=== PATIENT | male | born 1960 | race Caucasian/White ===

== ENCOUNTER 2018-02-24 17:48 | Inpatient (IN) | payer MEDICARE, OTHER ==
[2018-02-24] MEDS ORDERED: VANCOMYCIN IV PER PHARMACY 1 EACH MISC MISCELLANE PRN (23:09)
[2018-02-24 23:17] LABS: Glucose,Whole Blood 257 mg/dL (75-99)
[2018-02-25 00:02] LABS: Basophils % (A) 0 %; Eosinophils # (A) 0.1 k/uL (0-0.7); Eosinophils % (A) 1 %; HCT 42.2 % (39.0-53.0); Lymphocytes # (A) 0.5 k/uL (1.0-4.8); Lymphocytes % (A) 4 %; MCH 29.5 pg (25.0-35.0); MCHC 33.3 g/dL (31.0-37.0); MCV 88.8 fL (80.0-100.0); Mean Platelet Volume 6.7; Monocytes # (A) 0.6 k/uL (0-1.0); Monocytes % (A) 5 %; Neutrophils # (A) 10.5 k/uL (1.3-7.7); Neutrophils % (A) 87 %; Platelet Count 174 k/uL (150-450); RBC 4.75 m/uL (4.30-5.90); RDW 14.7 % (11.5-15.5)
[2018-02-25 00:12] LABS: ALT 35 U/L (21-72); AST 38 U/L (17-59); Albumin 2.9 g/dL (3.5-5.0); Alkaline Phosphatase 55 U/L (38-126); Anion Gap 7 mmol/L; Blood Urea Nitrogen 14 mg/dL (9-20); Calcium 8.4 mg/dL (8.4-10.2); Carbon Dioxide 27 mmol/L (22-30); Chloride 97 mmol/L (98-107); Glucose 269 mg/dL (74-99); Magnesium 2.1 mg/dL (1.6-2.3); Sodium 131 mmol/L (137-145); Total Bilirubin 1.6 mg/dL (0.2-1.3); Total Protein 6.5 g/dL (6.3-8.2)
[2018-02-25] MEDS ORDERED: INSULIN DETEMIR 100 UNIT/ML 10 ML VIAL SQ SCH (00:15)
[2018-02-25] MEDS: HYDROcodone/APAP 10-325MG 1 EACH TAB PO PRN ×2 (00:33→09:56)
[2018-02-25] MEDS: HEPARIN SODIUM,PORCINE 5,000 UNIT/ML 1 ML VIAL SQ SCH ×3 (00:35→16:17)
[2018-02-25] MEDS: SODIUM CHLORIDE 0.9% 1,000 ML IV SCH (00:35)
[2018-02-25] MEDS ORDERED: VANCOMYCIN 2,250 MG in SODIUM CHLORIDE 0.9% 500 ML IVPB ONE (01:00)
[2018-02-25] MEDS: INSULIN ASPART 100 UNIT/ML 1 ML 10 ML VIAL SQ SCH ×7 (01:05→22:37)
[2018-02-25] MEDS: PANTOPRAZOLE 40 MG/10 ML VIAL IVP SCH ×2 (01:06→08:40)
[2018-02-25] MEDS: PIPERACILLIN-TAZOBACTAM 3.375 GM in DEXTROSE/WATER 1 50ML.BAG IVPB SCH ×4 (05:51→16:18)
[2018-02-25 06:00] LABS: Glucose,Whole Blood 203 mg/dL (75-99)
[2018-02-25 06:01] LABS: HCT 40.1 % (39.0-53.0); HGB 13.2 gm/dL (13.0-17.5); MCH 29.3 pg (25.0-35.0); MCHC 32.9 g/dL (31.0-37.0); MCV 89.1 fL (80.0-100.0); Mean Platelet Volume 7.3; Platelet Count 189 k/uL (150-450); RBC 4.49 m/uL (4.30-5.90); RDW 14.8 % (11.5-15.5); WBC 11.7 k/uL (3.8-10.6)
[2018-02-25 06:08] LABS: Anion Gap 9 mmol/L; Blood Urea Nitrogen 17 mg/dL (9-20); Calcium 8.3 mg/dL (8.4-10.2); Carbon Dioxide 25 mmol/L (22-30); Chloride 97 mmol/L (98-107); Glucose 221 mg/dL (74-99); Potassium 4.1 mmol/L (3.5-5.1); Sodium 131 mmol/L (137-145)
--- NOTE | 2018-02-25 10:17 | P.CONS ---
History of Present Illness - Reason for Consult Consult date: 02/25/18 Wounds - History of Present Illness This is a 57-year-old male patient well known to ID service because of bilateral lower extremity venous stasis ulcerations and seen in the wound healing center for a long period of time. Patient was discharged in the wound healing Center in October 2015. At that time patient was refusing to use a compressive sleeve. Patient was to follow-up in the office. Patient has had ongoing large wound weeping to the right lower extremity. He states for the last few days he has had fever, chills, rigors. He states his head was cloudy and he couldn't feel his right leg. He fell onto a wooden chair and then got himself up and then fell backwards against the wall slid down the wall and laid on the floor. He tried to call the neighbors and did not get an answer. He was finally able to get himself back up into a chair and knocked on the wall for the other neighbor to come and they called EMS and took him to [facility] initially and he was seen in the emergency center. He was found to have a lactic acid of 3.2, white count of 16.2, BNP 713, creatinine was 1.3, blood sugar 334. He was given Zosyn, Tylenol and Toradol and and then transferred to [facility] as a direct admission. Patient does state that his blood sugars are out of control and running between 200-250 at home. He has no idea on his hemoglobin A1c. He presented with a lactic acid of 1.5, white count of 12, afebrile, elevated heart rate at 115. Albumin was 2.9. Wound culture, urine culture, blood culture are status received. He has been on Zosyn and vancomycin. Patient denies any change in appetite. No nausea, vomiting or diarrhea. He denies any difficulty or pain with urination but states a Rodriguez catheter was placed because he could not stand to urinate. She denies any chest pain. No shortness of breath at rest. According to the patient's nurse. Patient did have diarrhea during the night but none on the day shift. Review of Systems All systems: negative Constitutional: Reports chills, Reports fatigue, Reports fever, Reports lethargy , Reports malaise, Reports weakness, Denies anorexia, Denies poor appetite, Denies weight gain, Denies weight loss Eyes: denies blurred vision, denies pain Ears, nose, mouth and throat: Denies dental pain, Denies headache, Denies mouth pain, Denies sore throat Cardiovascular: Reports leg edema, Denies chest pain, Denies shortness of breath , Denies syncope Respiratory: Denies cough, Denies cough with sputum, Denies dyspnea, Denies excessive sputum, Denies hemoptysis, Denies home oxygen, Denies wheezing Gastrointestinal: Denies abdominal pain, Denies diarrhea, Denies nausea, Denies vomiting Genitourinary: Denies dysuria, Denies urinary retention Musculoskeletal: Reports frequent falls, Reports gait dysfunction, Denies myalgias Integumentary: Reports color changes, Reports darkening of skin, Reports wounds , Denies pruritus, Denies rash Neurological: Denies numbness, Denies weakness Psychiatric: Denies anxiety, Denies depression Endocrine: Denies fatigue, Denies weight change Past Medical History Past Medical History: Asthma, Heart Failure, Diabetes Mellitus, Hyperlipidemia, Hypertension, Myocardial Infarction ([place]), Skin Disorder, Sleep Apnea/CPAP/BIPAP Additional Past Medical History / Comment(s): Bilateral lower extremity venous stasis ulcers, obstructive sleep apnea and doesn't wear CPAP. Last Myocardial Infarction Date:: 2009 History of Any Multi-Drug Resistant Organisms: None Reported Past Surgical History: Heart Catheterization With Stent, Tonsillectomy Additional Past Surgical History / Comment(s): punctured lung Past Anesthesia/Blood Transfusion Reactions: No Reported Reaction Date of Last Stent Placement:: 2009 Past Psychological History: Anxiety Additional Psychological History / Comment(s): welbutrin Smoking Status: Former smoker Past Alcohol Use History: None Reported Additional Past Alcohol Use History / Comment(s): Patient was a smoker of 2 packs per day for 40 years and quit in 2017. He denies any marijuana or street drug use. He states he drinks alcohol socially. He does not use any 8 to ambulate. He states he normally walks with a limp. He lives alone. There are no pets in the home. He denies any service or travel. 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 Past Drug Use History: None Reported - Past Family History Father Family Medical History: Unable to Obtain Mother Family Medical History: Unable to Obtain Brother(s) Family Medical History: Cancer, Deep Vein Thrombosis (DVT) Sister(s) Family Medical History: Cancer Medications and Allergies Home Medications Medication Instructions Recorded Confirmed Type Aspirin 325 mg PO DAILY 04/13/15 02/25/18 History Bumetanide [BUMEX] 2 mg PO BID 04/13/15 02/25/18 History Insulin Glargine [Lantus] 120 unit SQ BID 04/13/15 02/25/18 History Liraglutide [Victoza 2-Fransisco] 1.8 mg SQ DAILY 04/13/15 02/25/18 History Lovastatin [Mevacor] 40 mg PO AC-SUPPER 04/13/15 02/25/18 History Carvedilol [Coreg] 3.125 mg PO DAILY 02/25/18 02/25/18 History Digoxin [Lanoxin] 125 mcg PO DAILY 02/25/18 02/25/18 History Fenofibric Acid (Choline) 135 mg PO DAILY 02/25/18 02/25/18 History [Trilipix] Gabapentin 600 mg PO TID 02/25/18 02/25/18 History Hydrocodone/Acetaminophen [[place] 1 tab PO Q6H 02/25/18 02/25/18 History 10-325] Insulin Glulisine [Apidra] 20 unit SQ AC-TID 02/25/18 02/25/18 History Lisinopril [Zestril] 2.5 mg PO DAILY 02/25/18 02/25/18 History Magnesium Oxide [Mag-Ox] 400 mg PO DAILY 02/25/18 02/25/18 History Metolazone [Zaroxolyn] 10 mg PO TUWETH 02/25/18 02/25/18 History Nitroglycerin Sl Tabs [Nitrostat] 0.4 mg SUBLINGUAL Q5M PRN 02/25/18 02/25/18 History Potassium Chloride [Klor-Con 20] 20 meq PO DAILY 02/25/18 02/25/18 History Spironolactone [Aldactone] 25 mg PO DAILY 02/25/18 02/25/18 History Torsemide [Demadex] 100 mg PO DAILY 02/25/18 02/25/18 History Allergies Allergy/AdvReac Type Severity Reaction Status Date / Time No Known Allergies Allergy Verified 02/24/18 22:30 Physical Exam Vitals: Vital Signs Temp Pulse Resp BP BP Pulse Ox 02/25/18 08:45 98.3 F 104 H 18 126/67 96 02/25/18 04:00 99.0 F 111 H 18 113/57 94 L 02/25/18 02:30 99.5 F 113 H 18 109/55 93 L 02/24/18 21:45 98.3 F 110 H 18 105/59 92 L Intake and Output 02/24/18 02/25/18 02/25/18 22:59 06:59 14:59 Intake Total 118 Output Total 200 Balance -200 118 Intake: Oral 118 Output: Urine 200 Other: Voiding Method Indwelling Catheter Indwelling Catheter # Voids 1 Weight 168.5 kg 167.5 kg Gen: This is a morbidly obese 57-year-old male. He is found sleeping and awakens easily to verbal stimuli. He appears to be in no acute distress. HEENT: Head is atraumatic, normocephalic. Pupils equal, round. Sclerae is anicteric. Conjunctiva pink. Mucous members of the mouth are moist. Patient is edentulous. No thrush noted. NECK: Supple. No JVD. No lymphadenopathy. No thyromegaly. LUNGS: Clear to auscultation. No wheezes or rhonchi. No intercostal retractions. HEART: Regular rate and rhythm. Systolic murmur. ABDOMEN: Soft. Bowel sounds are present. No masses. No tenderness. Mild redness under abdominal folds. Rodriguez catheter draining dark alphonso urine. EXTREMITIES: Right lower extremity has dark chronic color changes to the lower leg. Right lower extremity has a brighter red color changes with serous drainage. There is bleeding between the toes. Acute mycosis bilaterally. Pedal edema 2+. Dorsalis pedis is very weakly palpable on the right and =1 on the left. NEUROLOGICAL: Patient is awake, alert and oriented x3. Severe generalized weakness noted. Results Results: Laboratory Results WBC 11.7 k/uL (3.8-10.6) H 02/25/18 05:14 RBC 4.49 m/uL (4.30-5.90) 02/25/18 05:14 Hgb 13.2 gm/dL (13.0-17.5) 02/25/18 05:14 Hct 40.1 % (39.0-53.0) 02/25/18 05:14 MCV 89.1 fL (80.0-100.0) 02/25/18 05:14 MCH 29.3 pg (25.0-35.0) 02/25/18 05:14 MCHC 32.9 g/dL (31.0-37.0) 02/25/18 05:14 RDW 14.8 % (11.5-15.5) 02/25/18 05:14 Plt Count 189 k/uL (150-450) 02/25/18 05:14 Neutrophils % 87 % 02/24/18 23:47 Lymphocytes % 4 % 02/24/18 23:47 Monocytes % 5 % 02/24/18 23:47 Eosinophils % 1 % 02/24/18 23:47 Basophils % 0 % 02/24/18 23:47 Neutrophils # 10.5 k/uL (1.3-7.7) H 02/24/18 23:47 Lymphocytes # 0.5 k/uL (1.0-4.8) L 02/24/18 23:47 Monocytes # 0.6 k/uL (0-1.0) 02/24/18 23:47 Eosinophils # 0.1 k/uL (0-0.7) 02/24/18 23:47 Basophils # 0.0 k/uL (0-0.2) 02/24/18 23:47 Sodium 131 mmol/L (137-145) L 02/25/18 05:14 Potassium 4.1 mmol/L (3.5-5.1) 02/25/18 05:14 Chloride 97 mmol/L (98-107) L 02/25/18 05:14 Carbon Dioxide 25 mmol/L (22-30) 02/25/18 05:14 Anion Gap 9 mmol/L 02/25/18 05:14 BUN 17 mg/dL (9-20) 02/25/18 05:14 Creatinine 0.70 mg/dL (0.66-1.25) 02/25/18 05:14 Est GFR (CKD-EPI)AfAm >90 (>60 ml/min/1.73 sqM) 02/25/18 05:14 Est GFR (CKD-EPI)NonAf >90 (>60 ml/min/1.73 sqM) 02/25/18 05:14 Glucose 221 mg/dL (74-99) H 02/25/18 05:14 POC Glucose (mg/dL) 203 mg/dL (75-99) H 02/25/18 05:58 POC Glu [employer] Teacher ID Gisell Oates 02/25/18 05:58 Plasma Lactic Acid Osiel 1.5 mmol/L (0.7-2.0) 02/25/18 05:14 Calcium 8.3 mg/dL (8.4-10.2) L 02/25/18 05:14 Magnesium 2.1 mg/dL (1.6-2.3) 02/24/18 23:47 Total Bilirubin 1.6 mg/dL (0.2-1.3) H 02/24/18 23:47 AST 38 U/L (17-59) 02/24/18 23:47 ALT 35 U/L (21-72) 02/24/18 23:47 Alkaline Phosphatase 55 U/L (38-126) 02/24/18 23:47 NT-Pro-B Natriuret Pep 575 pg/mL 02/24/18 23:47 Total Protein 6.5 g/dL (6.3-8.2) 02/24/18 23:47 Albumin 2.9 g/dL (3.5-5.0) L 02/24/18 23:47 CBC & Chem 7: 02/25/18 05:14 02/25/18 05:14 Labs: Abnormal Lab Results - Last 24 Hours (Table) 02/24/18 02/24/18 02/24/18 Range/Units 23:15 23:47 23:47 WBC 12.0 H (3.8-10.6) k/uL Neutrophils # 10.5 H (1.3-7.7) k/uL Lymphocytes # 0.5 L (1.0-4.8) k/uL Sodium 131 L (137-145) mmol/L Chloride 97 L (98-107) mmol/L Glucose 269 H (74-99) mg/dL POC Glucose (mg/dL) 257 H (75-99) mg/dL Calcium (8.4-10.2) mg/dL Total Bilirubin 1.6 H (0.2-1.3) mg/dL Albumin 2.9 L (3.5-5.0) g/dL 02/25/18 02/25/18 02/25/18 Range/Units 05:14 05:14 05:58 WBC 11.7 H (3.8-10.6) k/uL Neutrophils # (1.3-7.7) k/uL Lymphocytes # (1.0-4.8) k/uL Sodium 131 L (137-145) mmol/L Chloride 97 L (98-107) mmol/L Glucose 221 H (74-99) mg/dL POC Glucose (mg/dL) 203 H (75-99) mg/dL Calcium 8.3 L (8.4-10.2) mg/dL Total Bilirubin (0.2-1.3) mg/dL Albumin (3.5-5.0) g/dL Assessment and Plan Plan: This is a 57-year-old male who presented with signs of sepsis most likely secondary to wounds to the right lower extremity with long-standing history of bilateral lower extremity venous stasis ulcerations and metabolic encephalopathy. He is complaining of significant pain to the area. Dr. Mansfield is on consult. He is on antibiotics in the form of Zosyn and vancomycin which will be continued. Local wound care will be addressed. Continue supportive care. Further recommendations as patient progresses. The above dictated assessment and findings were discussed with Dr. Shelton. The impression and plan of care have been directed as dictated. Harper Brantley nurse practitioner acting as scribe for Dr. Shelton.
[2018-02-25] MEDS: VANCOMYCIN 2,250 MG in SODIUM CHLORIDE 0.9% 500 ML IVPB SCH ×2 (10:45→16:17)
[2018-02-25] MEDS: INSULIN DETEMIR 100 UNIT/ML 10 ML VIAL SQ SCH ×2 (10:45→22:38)
[2018-02-25] MEDS ORDERED: HYDROmorphone 1 MG/ML 1 ML SYRINGE IVP STA (11:04)
[2018-02-25 11:10] LABS: Glucose,Whole Blood 133 mg/dL (75-99)
[2018-02-25 11:28] LABS: Glucose,Whole Blood 147 mg/dL (75-99)
[2018-02-25] MEDS ORDERED: NITROGLYCERIN SL TABS 0.4 MG TAB SUBLINGUAL PRN (12:13)
[2018-02-25] MEDS ORDERED: VANCOMYCIN 2,250 MG in SODIUM CHLORIDE 0.9% 500 ML IVPB SCH (13:00)
[2018-02-25] MEDS: HYDROcodone/APAP 10-325MG 1 EACH TAB PO SCH ×2 (13:09→17:32)
[2018-02-25 13:27] VITALS: BMI 56.1
--- NOTE | 2018-02-25 15:20 | P.HPIM ---
History of Present Illness 57-year-old male came in because of generalized weakness and fall. He fell on his right leg normally cannot that he can ablate. Patient is morbidly obese bilateral chronic venous stasis and the patient has significant cellulitis of the right lower limb with this skin breakdown of the entire right leg patient had fevers chills and rigors at home and the patient is found to have elevated temperatures patient will was seen in [facility] after which patient was subsequently transferred here patient was a valid by infectious diseases started him on Zosyn and vancomycin. Wound cultures were obtained. Patient presently denied any fever chills nausea vomiting. Patient has a Rodriguez catheter in place. Although it was documented patient takes digoxin he doesn't really take that medication, patient is on huge doses of torsemide Bumex and metolazone. Patient is hyponatremic because of which I'm cutting down Bumex continue metolazone not be ordering torsemide. Patient is using these medications. For extensive bilateral edema secondary to morbid obesity chronic venous stasis patient does have a big mass in the right thigh area, scheduled to get the mass removed which apparently was a lipoma. Review of Systems REVIEW OF SYSTEMS: CONSTITUTIONAL: As mentioned in HPI HEENT: No recent visual problems or hearing problems. Denied any sore throat. CARDIOVASCULAR: No chest pain, orthopnea, PND, no palpitations, no syncope. PULMONARY: No shortness of breath, no cough, no hemoptysis. GASTROINTESTINAL: No diarrhea, no nausea, no vomiting, no abdominal pain. Normoactive bowel sounds. NEUROLOGICAL: No headaches, no weakness, no numbness. HEMATOLOGICAL: Denies any bleeding or petechiae. GENITOURINARY: Denies any burning micturition, frequency, or urgency. MUSCULOSKELETAL/RHEUMATOLOGICAL: Denies any joint pain, swelling, or any muscle pain. ENDOCRINE: Denies any polyuria or polydipsia. The rest of the 14-point review of systems is negative. Past Medical History Past Medical History: Asthma, Heart Failure, Diabetes Mellitus, Hyperlipidemia, Hypertension, Myocardial Infarction ([place]), Skin Disorder, Sleep Apnea/CPAP/BIPAP Additional Past Medical History / Comment(s): Bilateral lower extremity venous stasis ulcers, obstructive sleep apnea and doesn't wear CPAP. Last Myocardial Infarction Date:: 2009 History of Any Multi-Drug Resistant Organisms: None Reported Past Surgical History: Heart Catheterization With Stent, Tonsillectomy Additional Past Surgical History / Comment(s): punctured lung Past Anesthesia/Blood Transfusion Reactions: No Reported Reaction Date of Last Stent Placement:: 2009 Past Psychological History: Anxiety Additional Psychological History / Comment(s): welbutrin Smoking Status: Former smoker Past Alcohol Use History: None Reported Additional Past Alcohol Use History / Comment(s): Patient was a smoker of 2 packs per day for 40 years and quit in 2017. He denies any marijuana or street drug use. He states he drinks alcohol socially. He does not use any 8 to ambulate. He states he normally walks with a limp. He lives alone. There are no pets in the home. He denies any service or travel. 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 Past Drug Use History: None Reported - Past Family History Father Family Medical History: Unable to Obtain Mother Family Medical History: Unable to Obtain Brother(s) Family Medical History: Cancer, Deep Vein Thrombosis (DVT) Sister(s) Family Medical History: Cancer Medications and Allergies Home Medications Medication Instructions Recorded Confirmed Type Aspirin 325 mg PO DAILY 04/13/15 02/25/18 History Bumetanide [BUMEX] 2 mg PO BID 04/13/15 02/25/18 History Insulin Glargine [Lantus] 120 unit SQ BID 04/13/15 02/25/18 History Liraglutide [Victoza 2-Fransisco] 1.8 mg SQ DAILY 04/13/15 02/25/18 History Lovastatin [Mevacor] 40 mg PO AC-SUPPER 04/13/15 02/25/18 History Carvedilol [Coreg] 3.125 mg PO DAILY 02/25/18 02/25/18 History Digoxin [Lanoxin] 125 mcg PO DAILY 02/25/18 02/25/18 History Fenofibric Acid (Choline) 135 mg PO DAILY 02/25/18 02/25/18 History [Trilipix] Gabapentin 600 mg PO TID 02/25/18 02/25/18 History Hydrocodone/Acetaminophen [[place] 1 tab PO Q6H 02/25/18 02/25/18 History 10-325] Insulin Glulisine [Apidra] 20 unit SQ AC-TID 02/25/18 02/25/18 History Lisinopril [Zestril] 2.5 mg PO DAILY 02/25/18 02/25/18 History Magnesium Oxide [Mag-Ox] 400 mg PO DAILY 02/25/18 02/25/18 History Metolazone [Zaroxolyn] 10 mg PO WETH 02/25/18 02/25/18 History Nitroglycerin Sl Tabs [Nitrostat] 0.4 mg SUBLINGUAL Q5M PRN 02/25/18 02/25/18 History Potassium Chloride [Klor-Con 20] 20 meq PO DAILY 02/25/18 02/25/18 History Spironolactone [Aldactone] 25 mg PO DAILY 02/25/18 02/25/18 History Torsemide [Demadex] 100 mg PO DAILY 02/25/18 02/25/18 History Allergies Allergy/AdvReac Type Severity Reaction Status Date / Time No Known Allergies Allergy Verified 02/24/18 22:30 Physical Exam Vitals: Vital Signs Temp Pulse Resp BP BP Pulse Ox 02/25/18 11:23 98 18 02/25/18 11:19 98.9 F 98 18 124/68 96 02/25/18 08:45 98.3 F 104 H 18 126/67 96 02/25/18 04:00 99.0 F 111 H 18 113/57 94 L 02/25/18 02:30 99.5 F 113 H 18 109/55 93 L 02/24/18 21:45 98.3 F 110 H 18 105/59 92 L Intake and Output 02/25/18 02/25/18 02/25/18 06:59 14:59 22:59 Intake Total 998 Output Total 200 600 Balance -200 398 Intake: IV 40 Invasive Line 1 20 Invasive Line 2 20 Oral 958 Output: Urine 200 600 Other: Voiding Method Indwelling Catheter Indwelling Catheter # Voids 1 Weight 167.5 kg 167.5 kg PHYSICAL EXAMINATION: GENERAL: The patient is alert and oriented x3, not in any acute distress. Morbidly obese HEENT: Pupils are round and equally reacting to light. EOMI. No scleral icterus. No conjunctival pallor. Normocephalic, atraumatic. No pharyngeal erythema. No thyromegaly. CARDIOVASCULAR: S1 and S2 present. No murmurs, rubs, or gallops. PULMONARY: Chest is clear to auscultation, no wheezing or crackles. ABDOMEN: Soft, nontender, nondistended, normoactive bowel sounds. No palpable organomegaly. MUSCULOSKELETAL: No joint swelling or deformity. EXTREMITIES: Bilateral lower extremity swelling right leg is much more swollen with a big lipoma in the thigh area circumferential redness extending up to the knee in the leg with serosanguineous dryness and occasional areas of process and complete skin breakdown NEUROLOGICAL: Gross neurological examination did not reveal any focal deficits. SKIN: No rashes. Results CBC & Chem 7: 02/25/18 05:14 02/25/18 05:14 Labs: Abnormal Lab Results - Last 24 Hours (Table) 02/24/18 02/24/18 02/24/18 Range/Units 23:15 23:47 23:47 WBC 12.0 H (3.8-10.6) k/uL Neutrophils # 10.5 H (1.3-7.7) k/uL Lymphocytes # 0.5 L (1.0-4.8) k/uL Sodium 131 L (137-145) mmol/L Chloride 97 L (98-107) mmol/L Glucose 269 H (74-99) mg/dL POC Glucose (mg/dL) 257 H (75-99) mg/dL Calcium (8.4-10.2) mg/dL Total Bilirubin 1.6 H (0.2-1.3) mg/dL Albumin 2.9 L (3.5-5.0) g/dL 02/25/18 02/25/18 02/25/18 Range/Units 05:14 05:14 05:58 WBC 11.7 H (3.8-10.6) k/uL Neutrophils # (1.3-7.7) k/uL Lymphocytes # (1.0-4.8) k/uL Sodium 131 L (137-145) mmol/L Chloride 97 L (98-107) mmol/L Glucose 221 H (74-99) mg/dL POC Glucose (mg/dL) 203 H (75-99) mg/dL Calcium 8.3 L (8.4-10.2) mg/dL Total Bilirubin (0.2-1.3) mg/dL Albumin (3.5-5.0) g/dL 02/25/18 02/25/18 Range/Units 10:50 11:24 WBC (3.8-10.6) k/uL Neutrophils # (1.3-7.7) k/uL Lymphocytes # (1.0-4.8) k/uL Sodium (137-145) mmol/L Chloride (98-107) mmol/L Glucose (74-99) mg/dL POC Glucose (mg/dL) 133 H 147 H (75-99) mg/dL Calcium (8.4-10.2) mg/dL Total Bilirubin (0.2-1.3) mg/dL Albumin (3.5-5.0) g/dL Microbiology - Last 24 Hours (Table) 02/24/18 23:10 Wound Culture - Preliminary Leg - Right 02/24/18 23:56 Urine Culture - Preliminary Urine,Clean Catch 02/24/18 23:10 Anaerobic Culture - Preliminary Leg - Right Thrombosis Risk Factor Assmnt - Choose All That Apply Each Factor Represents 1 point: Age 41-60 years, Obesity (BMI >25), Swollen legs (current) Thrombosis Risk Factor Assessment Total Risk Factor Score: 3 Thrombosis Risk Factor Assessment Level: Moderate Risk Assessment and Plan Plan: -Sepsis: Secondary to right leg cellulitis infectious disease was consulted patient is on broad-spectrum antibiotics we will use diuretics at a lower dose or pedal edema. -Hyponatremia hypovolemic hyponatremia secondary to excessive diuretic therapy dose of which I'm cutting down repeat basic metabolic profile tomorrow -Type 2 diabetes mellitus -Hyperlipidemia -Sleep apnea and uses CPAP machine at home next Morbid obesity -Coronary artery disease For above-mentioned chronic medical problems patient will be continued on appropriate home medications
[2018-02-25] MEDS: BUMETANIDE 1 MG TAB PO SCH (16:16)
[2018-02-25] MEDS: METOLAZONE 5 MG TAB PO SCH (16:16)
[2018-02-25] MEDS: GABAPENTIN 300 MG CAP PO SCH ×2 (16:17→22:38)
[2018-02-25 16:45] LABS: Glucose,Whole Blood 154 mg/dL (75-99)
[2018-02-25 16:52] LABS: Hemoglobin A1C 9.4 % (4.0-6.0)
[2018-02-25] MEDS ORDERED: POTASSIUM CHLORIDE ER 20 MEQ TAB.ER PO STA (17:09)
[2018-02-25 20:59] LABS: Glucose,Whole Blood 144 mg/dL (75-99)
--- NOTE | 2018-02-25 21:43 | P.CON ---
Consult Note - . Consult date: 02/25/18 Assessment/Plan:: This is a 57-year-old male patient well known to ID service because of bilateral lower extremity venous stasis ulcerations and seen in the wound healing center for a long period of time. Patient was discharged in the wound healing Center in October 2015. At that time patient was refusing to use a compressive sleeve. Patient was to follow-up in the office. Patient has had ongoing large wound weeping to the right lower extremity. He states for the last few days he has had fever, chills, rigors. He states his head was cloudy and he couldn't feel his right leg. He fell onto a wooden chair and then got himself up and then fell backwards against the wall slid down the wall and laid on the floor. He tried to call the neighbors and did not get an answer. He was finally able to get himself back up into a chair and knocked on the wall for the other neighbor to come and they called EMS and took him to [facility] initially and he was seen in the emergency center. He was found to have a lactic acid of 3.2, white count of 16.2, BNP 713, creatinine was 1.3, blood sugar 334. He was given Zosyn, Tylenol and Toradol and and then transferred to [facility] as a direct admission. Patient does state that his blood sugars are out of control and running between 200-250 at home. He has no idea on his hemoglobin A1c. He presented with a lactic acid of 1.5, white count of 12, afebrile, elevated heart rate at 115. Albumin was 2.9. Wound culture, urine culture, blood culture are status received. He has been on Zosyn and vancomycin. Patient denies any change in appetite. No nausea, vomiting or diarrhea. He denies any difficulty or pain with urination but states a Rodriguez catheter was placed because he could not stand to urinate. She denies any chest pain. No shortness of breath at rest. According to the patient's nurse. Patient did have diarrhea during the night but none on the day shift. Please see the consult note as dictated by CLEANER GREASER Claritza Harper [employer]. Patient is feeling poorly is with shortness of breath and feverfamily is the chronic extensive ulceration of the right lower extremity that is present for many many months apparently markedly worsened and became voluminous and its discharge. Eventually fell to the floor and couldn't get up and neighbors called EMS to bring the hospital, he was with evidence of lactic acidosis leukocytosis and sepsis. Because of this. infectious diseases consultation was requested. At this time since [facility] is feeling somewhat better. Lactic acid is improved blood sugars are improving he received resuscitation. He had this time as showing some improvement. Will utilize the absorptive pads to observe the drainage from the right leg. We'll give the wrap the left leg with Silvadene wrap for now. Cultures are process. We'll continue the Zosyn and vancomycin based on prior cultures. oncethe patient is more stable and his head is vascular evaluationwill attempt wrap to the right lower extremity. await cultures to further direct antimicrobial therapy.I agree with the evaluation assessment and plan as dictated by CLEANER GREASER Mrs. Harper Brantley.
[2018-02-26] MEDS: SODIUM CHLORIDE 0.9% 1,000 ML IV SCH (00:20)
[2018-02-26] MEDS: HYDROcodone/APAP 10-325MG 1 EACH TAB PO SCH ×4 (00:21→20:23)
[2018-02-26] MEDS: PIPERACILLIN-TAZOBACTAM 3.375 GM in DEXTROSE/WATER 1 50ML.BAG IVPB SCH ×3 (00:21→12:24)
[2018-02-26] MEDS: HEPARIN SODIUM,PORCINE 5,000 UNIT/ML 1 ML VIAL SQ SCH ×4 (00:21→23:47)
[2018-02-26] MEDS: VANCOMYCIN 2,250 MG in SODIUM CHLORIDE 0.9% 500 ML IVPB SCH ×2 (00:23→11:09)
[2018-02-26 06:17] LABS: Glucose,Whole Blood 109 mg/dL (75-99)
[2018-02-26] MEDS: CARVEDILOL 3.125 MG TAB PO SCH (06:32)
[2018-02-26 07:58] LABS: HCT 37.9 % (39.0-53.0); HGB 12.6 gm/dL (13.0-17.5); MCH 30.3 pg (25.0-35.0); MCHC 33.2 g/dL (31.0-37.0); MCV 91.2 fL (80.0-100.0); Mean Platelet Volume 7.3; Platelet Count 170 k/uL (150-450); RBC 4.16 m/uL (4.30-5.90); RDW 14.9 % (11.5-15.5); WBC 6.8 k/uL (3.8-10.6)
[2018-02-26] MEDS ORDERED: VANCOMYCIN TROUGH DUE 1 EACH MISC MISCELLANE ONE (08:00)
[2018-02-26 08:18] LABS: Anion Gap 7 mmol/L; Blood Urea Nitrogen 13 mg/dL (9-20); Calcium 7.7 mg/dL (8.4-10.2); Carbon Dioxide 26 mmol/L (22-30); Chloride 100 mmol/L (98-107); Glucose 194 mg/dL (74-99); Potassium 3.5 mmol/L (3.5-5.1); Sodium 133 mmol/L (137-145)
[2018-02-26] MEDS: INSULIN ASPART 100 UNIT/ML 1 ML 10 ML VIAL SQ SCH ×7 (10:51→20:29)
[2018-02-26] MEDS: PATIENT'S OWN MED (Liraglutide [Victoza 2-Pak] 1.8 MG) SQ SCH (10:54)
[2018-02-26] MEDS: LISINOPRIL 2.5 MG TAB PO SCH (10:56)
[2018-02-26] MEDS: BUMETANIDE 1 MG TAB PO SCH ×2 (10:56→16:57)
[2018-02-26] MEDS: GABAPENTIN 300 MG CAP PO SCH ×3 (10:56→19:53)
[2018-02-26] MEDS: FENOFIBRATE 160 MG TAB PO SCH (10:56)
[2018-02-26] MEDS: POTASSIUM CHLORIDE ER 20 MEQ TAB.ER PO SCH (10:57)
[2018-02-26] MEDS: PANTOPRAZOLE 40 MG/10 ML VIAL IVP SCH (10:57)
[2018-02-26] MEDS: INSULIN DETEMIR 100 UNIT/ML 10 ML VIAL SQ SCH ×2 (11:08→20:39)
[2018-02-26] MEDS ORDERED: KETOROLAC 30 MG/ML 1 ML VIAL IVP PRN (11:09)
[2018-02-26 11:49] LABS: Glucose,Whole Blood 169 mg/dL (75-99)
--- NOTE | 2018-02-26 12:24 | P.PN ---
Subjective 57-year-old male came in with the sepsis and cellulitis of the right lower extremity with complete skin brought down of the right lower extremity. Patient carries to be on vancomycin and Zosyn wound cultures are showing streptococci. Infectious disease evaluated the patient vascular surgery will evaluate the patient today. Patient is afebrile for about 24 hours. Patient's sodium did improve can you with the same dose of Bumex and metolazone. Constitutional: Denied any fatigue denied any fever. Cardio vascular: denied any chest pain, palpitations Gastrointestinal denied any nausea vomiting Pulmonary: Denied any shortness of breath cough Neurologic denied any new focal deficits Objective - Vital Signs Vital signs: Vital Signs Temp 98.8 F 02/26/18 08:00 Pulse 88 02/26/18 08:00 Resp 20 02/26/18 08:00 BP 113/53 02/26/18 08:00 Pulse Ox 92 L 02/26/18 08:00 Intake & Output 02/25/18 02/26/18 02/26/18 18:59 06:59 18:59 Intake Total 2098 2180 360 Output Total 600 3000 Balance 1498 -820 360 Weight 167.5 kg 170 kg Intake: IV 60 1760 Invasive Line 1 30 30 Invasive Line 2 30 30 Piperacillin-Tazobactam 3 100 .375 gm In Dextrose/Water 1 50ml.bag @ 12.5 mls/hr IVPB Q6HR [facility] Rx#: [id number] Sodium Chloride 0.9% 1, 600 000 ml @ 50 mls/hr IV . Q20H [facility] Rx#:[id number] Vancomycin 2,250 mg In 1000 Sodium Chloride 0.9% 500 ml @ 125 mls/hr IVPB ONCE ONE Rx#:[id number] Oral 2038 420 360 Output: Urine 600 3000 Other: Voiding Method Indwelling Catheter Indwelling Catheter # Voids 1 - Exam PHYSICAL EXAMINATION: GENERAL: The patient is alert and oriented x3, not in any acute distress. Morbidly obese HEENT: Pupils are round and equally reacting to light. EOMI. No scleral icterus. No conjunctival pallor. Normocephalic, atraumatic. No pharyngeal erythema. No thyromegaly. CARDIOVASCULAR: S1 and S2 present. No murmurs, rubs, or gallops. PULMONARY: Chest is clear to auscultation, no wheezing or crackles. ABDOMEN: Soft, nontender, nondistended, normoactive bowel sounds. No palpable organomegaly. MUSCULOSKELETAL: No joint swelling or deformity. EXTREMITIES: Bilateral lower extremity swelling right leg is much more swollen with a big lipoma in the thigh area circumferential redness extending up to the knee in the leg with serosanguineous dryness and occasional areas of process and complete skin breakdown NEUROLOGICAL: Gross neurological examination did not reveal any focal deficits. SKIN: No rashes. - Labs CBC & Chem 7: 02/26/18 07:37 02/26/18 07:37 Labs: Abnormal Lab Results - Last 24 Hours (Table) 02/24/18 02/25/18 02/25/18 Range/Units 23:47 16:44 20:51 RBC (4.30-5.90) m/uL Hgb (13.0-17.5) gm/dL Hct (39.0-53.0) % Sodium (137-145) mmol/L Glucose (74-99) mg/dL POC Glucose (mg/dL) 154 H 144 H (75-99) mg/dL Hemoglobin A1c 9.4 H (4.0-6.0) % Calcium (8.4-10.2) mg/dL 02/26/18 02/26/18 02/26/18 Range/Units 06:15 07:37 07:37 RBC 4.16 L (4.30-5.90) m/uL Hgb 12.6 L (13.0-17.5) gm/dL Hct 37.9 L (39.0-53.0) % Sodium 133 L (137-145) mmol/L Glucose 194 H (74-99) mg/dL POC Glucose (mg/dL) 109 H (75-99) mg/dL Hemoglobin A1c (4.0-6.0) % Calcium 7.7 L (8.4-10.2) mg/dL 02/26/18 Range/Units 11:45 RBC (4.30-5.90) m/uL Hgb (13.0-17.5) gm/dL Hct (39.0-53.0) % Sodium (137-145) mmol/L Glucose (74-99) mg/dL POC Glucose (mg/dL) 169 H (75-99) mg/dL Hemoglobin A1c (4.0-6.0) % Calcium (8.4-10.2) mg/dL Microbiology - Last 24 Hours (Table) 02/24/18 23:56 Urine Culture - Final Urine,Clean Catch 02/24/18 23:10 Gram Stain - Final Leg - Right Wound Culture - Final 02/24/18 23:47 Blood Culture Gram Stain - Preliminary Blood Blood Culture - Preliminary Strep agalactiae - (group b) 02/24/18 23:47 Blood Culture - Final Blood 02/24/18 23:10 Anaerobic Culture - Preliminary Leg - Right Assessment and Plan Plan: -Sepsis: Secondary to right leg cellulitis infectious disease was consulted patient is on broad-spectrum antibiotics we will use diuretics at a lower dose or pedal edema. Patient's wound cultures are positive for streptococci -Hyponatremia hypovolemic hyponatremia secondary to excessive diuretic therapy, improved sodium after cutting down the dose of her diuretic therapy. -Type 2 diabetes mellitus -Hyperlipidemia -Sleep apnea and uses CPAP machine at home next Morbid obesity -Coronary artery disease For above-mentioned chronic medical problems patient will be continued on appropriate home medications
[2018-02-26] MEDS: MAGNESIUM OXIDE 400 MG TAB PO SCH (12:25)
[2018-02-26] MEDS: FAMOTIDINE 20 MG TAB PO SCH ×2 (12:25→19:53)
[2018-02-26] MEDS: cefTRIAXone IN SWFI 2,000 MG/20 ML SYRINGE IVP SCH (14:27)
--- NOTE | 2018-02-26 14:41 | CONS ---
CONSULTATION This is a 57-year-old gentleman who has been seen in [facility] by Dr. Iker Shelton for longstanding history of chronic venous hypertension with venostasis ulcer right lower extremity. Patient came with possibility of sepsis, has been admitted and he has been on IV antibiotic. Patient also has a history of obesity, diabetes, hypertension, coronary artery disease. Patient also has some significant mass on the right upper thigh medial aspect. According to the patient, patient had a CAT scan done and he was seeing a plastic surgeon in [place]. He recommended possible surgery. PHYSICAL EXAMINATION: Patient was seen in his room. His neck is supple. Chest is clear. Abdomen is protuberant. Pulses are deep. Patient has brown discoloration of the both lower extremity. Patient has a large ulcer on the right lower extremity lateral aspect with a lot of serous drainage and the patient was seen by Dr. Shelton, started IV antibiotic and local wound care, Silvadene cream with a compression wrap. At this point, patient needs IV antibiotic and local wound care. Prognosis guarded. We will discuss with Dr. Shelton and according to the patient, he has appointment in [place] by his plastic surgeon. MMODL / IJN: [id number] /
[2018-02-26] MEDS ORDERED: VANCOMYCIN 2,000 MG in SODIUM CHLORIDE 0.9% 500 ML IVPB SCH (17:00)
[2018-02-26 17:02] LABS: Glucose,Whole Blood 79 mg/dL (75-99)
[2018-02-26] MEDS: HYDROcodone/APAP 10-325MG 1 EACH TAB PO PRN (18:54)
[2018-02-26 20:31] LABS: Glucose,Whole Blood 119 mg/dL (75-99)
[2018-02-27] MEDS: HYDROcodone/APAP 10-325MG 1 EACH TAB PO PRN ×4 (02:12→21:24)
[2018-02-27 05:57] LABS: Glucose,Whole Blood 88 mg/dL (75-99)
[2018-02-27] MEDS: INSULIN ASPART 100 UNIT/ML 1 ML 10 ML VIAL SQ SCH ×7 (06:16→21:26)
[2018-02-27] MEDS: PANTOPRAZOLE 40 MG TABLET PO SCH (06:59)
[2018-02-27] MEDS: CARVEDILOL 3.125 MG TAB PO SCH (06:59)
[2018-02-27] MEDS: cefTRIAXone IN SWFI 2,000 MG/20 ML SYRINGE IVP SCH (08:10)
[2018-02-27] MEDS: HEPARIN SODIUM,PORCINE 5,000 UNIT/ML 1 ML VIAL SQ SCH ×2 (08:10→17:19)
[2018-02-27] MEDS: BUMETANIDE 1 MG TAB PO SCH ×2 (08:10→17:19)
[2018-02-27] MEDS: GABAPENTIN 300 MG CAP PO SCH ×3 (08:10→21:24)
[2018-02-27] MEDS: FENOFIBRATE 160 MG TAB PO SCH (08:11)
[2018-02-27] MEDS: POTASSIUM CHLORIDE ER 20 MEQ TAB.ER PO SCH (08:11)
[2018-02-27] MEDS: PATIENT'S OWN MED (Liraglutide [Victoza 2-Pak] 1.8 MG) SQ SCH (08:11)
[2018-02-27] MEDS: LISINOPRIL 2.5 MG TAB PO SCH (08:11)
[2018-02-27] MEDS: FAMOTIDINE 20 MG TAB PO SCH (08:12)
[2018-02-27] MEDS: INSULIN DETEMIR 100 UNIT/ML 10 ML VIAL SQ SCH ×2 (08:28→21:27)
--- NOTE | 2018-02-27 12:17 | P.PN ---
Subjective 57-year-old male came in with the sepsis and cellulitis of the right lower extremity with complete skin brought down of the right lower extremity. Patient carries to be on vancomycin and Zosyn wound cultures are showing streptococci. Infectious disease evaluated the patient vascular surgery will evaluate the patient today. Patient is afebrile for about 24 hours. Patient's sodium did improve can you with the same dose of Bumex and metolazone. 02/27/2018 No overnight events patient was switched to Rocephin as patient has streptococci. Vascular surgery evaluated the patient local wound care patient probably will be discharged to subacute rehabilitation, most probably on Thursday Constitutional: Denied any fatigue denied any fever. Cardio vascular: denied any chest pain, palpitations Gastrointestinal denied any nausea vomiting Pulmonary: Denied any shortness of breath cough Neurologic denied any new focal deficits Objective - Vital Signs Vital signs: Vital Signs Temp 98.4 F 02/27/18 08:00 Pulse 90 02/27/18 08:00 Resp 19 02/27/18 08:00 BP 109/66 02/27/18 08:00 Pulse Ox 93 L 02/27/18 08:00 Intake & Output 02/26/18 02/27/18 02/27/18 18:59 06:59 18:59 Intake Total 1140 40 360 Output Total 1650 1200 1400 Balance -510 -1160 -1040 Weight 170.6 kg Intake: IV 60 40 Invasive Line 1 30 10 Invasive Line 2 30 20 Sodium Chloride 0.9% 1, 10 000 ml @ 50 mls/hr IV . Q20H [facility] Rx#:[id number] Oral 1080 360 Output: Urine 1650 1200 1400 Uretheral (Rodriguez) 1100 1400 Other: Voiding Method Indwelling Catheter Indwelling Catheter Indwelling Catheter # Bowel Movements 1 - Exam PHYSICAL EXAMINATION: GENERAL: The patient is alert and oriented x3, not in any acute distress. Morbidly obese HEENT: Pupils are round and equally reacting to light. EOMI. No scleral icterus. No conjunctival pallor. Normocephalic, atraumatic. No pharyngeal erythema. No thyromegaly. CARDIOVASCULAR: S1 and S2 present. No murmurs, rubs, or gallops. PULMONARY: Chest is clear to auscultation, no wheezing or crackles. ABDOMEN: Soft, nontender, nondistended, normoactive bowel sounds. No palpable organomegaly. MUSCULOSKELETAL: No joint swelling or deformity. EXTREMITIES: Bilateral lower extremity swelling right leg is much more swollen with a big lipoma in the thigh area circumferential redness extending up to the knee in the leg with serosanguineous dryness and occasional areas of process and complete skin breakdown NEUROLOGICAL: Gross neurological examination did not reveal any focal deficits. SKIN: No rashes. - Labs CBC & Chem 7: 02/26/18 07:37 02/26/18 07:37 Labs: Abnormal Lab Results - Last 24 Hours (Table) 02/26/18 Range/Units 20:16 POC Glucose (mg/dL) 119 H (75-99) mg/dL Microbiology - Last 24 Hours (Table) 02/24/18 23:56 Urine Culture - Final Urine,Clean Catch 02/24/18 23:10 Gram Stain - Final Leg - Right Wound Culture - Final Assessment and Plan Plan: -Sepsis: Secondary to right leg cellulitis infectious disease was consulted patient is on broad-spectrum antibiotics we will use diuretics at a lower dose or pedal edema. Patient's wound cultures are positive for streptococci -Hyponatremia hypovolemic hyponatremia secondary to excessive diuretic therapy, improved sodium after cutting down the dose of her diuretic therapy. -Type 2 diabetes mellitus -Hyperlipidemia -Sleep apnea and uses CPAP machine at home next Morbid obesity -Coronary artery disease For above-mentioned chronic medical problems patient will be continued on appropriate home medications
[2018-02-27 12:24] LABS: Glucose,Whole Blood 121 mg/dL (75-99)
[2018-02-27] MEDS: MAGNESIUM OXIDE 400 MG TAB PO SCH (12:26)
[2018-02-27 17:09] LABS: Glucose,Whole Blood 170 mg/dL (75-99)
[2018-02-27 21:05] LABS: Glucose,Whole Blood 151 mg/dL (75-99)
[2018-02-28] MEDS: HEPARIN SODIUM,PORCINE 5,000 UNIT/ML 1 ML VIAL SQ SCH ×4 (01:56→23:12)
[2018-02-28] MEDS: HYDROcodone/APAP 10-325MG 1 EACH TAB PO PRN ×3 (06:20→21:19)
[2018-02-28 07:50] LABS: Glucose,Whole Blood 127 mg/dL (75-99)
[2018-02-28 08:36] LABS: Anion Gap 9 mmol/L; Blood Urea Nitrogen 12 mg/dL (9-20); Calcium 8.4 mg/dL (8.4-10.2); Carbon Dioxide 32 mmol/L (22-30); Chloride 95 mmol/L (98-107); Glucose 116 mg/dL (74-99); Potassium 4.1 mmol/L (3.5-5.1); Sodium 136 mmol/L (137-145)
[2018-02-28] MEDS: INSULIN ASPART 100 UNIT/ML 1 ML 10 ML VIAL SQ SCH ×7 (08:47→21:20)
[2018-02-28] MEDS: POTASSIUM CHLORIDE ER 20 MEQ TAB.ER PO SCH (08:48)
[2018-02-28] MEDS: CARVEDILOL 3.125 MG TAB PO SCH (08:48)
[2018-02-28] MEDS: BUMETANIDE 1 MG TAB PO SCH ×2 (08:48→15:33)
[2018-02-28] MEDS: INSULIN DETEMIR 100 UNIT/ML 10 ML VIAL SQ SCH ×2 (08:48→21:20)
[2018-02-28] MEDS: GABAPENTIN 300 MG CAP PO SCH ×3 (08:48→21:19)
[2018-02-28] MEDS: LISINOPRIL 2.5 MG TAB PO SCH (08:48)
[2018-02-28] MEDS: FENOFIBRATE 160 MG TAB PO SCH (08:49)
[2018-02-28] MEDS: PANTOPRAZOLE 40 MG TABLET PO SCH (08:49)
[2018-02-28] MEDS: PATIENT'S OWN MED (Liraglutide [Victoza 2-Pak] 1.8 MG) SQ SCH (08:50)
[2018-02-28] MEDS: cefTRIAXone IN SWFI 2,000 MG/20 ML SYRINGE IVP SCH ×2 (08:55→17:27)
[2018-02-28] MEDS: SILVER sulfADIAZINE Cream 400 GM 1 APPLIC APPLIC TOPICAL SCH (11:10)
[2018-02-28 11:55] LABS: Glucose,Whole Blood 132 mg/dL (75-99)
--- NOTE | 2018-02-28 12:30 | P.PN ---
Subjective 57-year-old male came in with the sepsis and cellulitis of the right lower extremity with complete skin brought down of the right lower extremity. Patient carries to be on vancomycin and Zosyn wound cultures are showing streptococci. Infectious disease evaluated the patient vascular surgery will evaluate the patient today. Patient is afebrile for about 24 hours. Patient's sodium did improve can you with the same dose of Bumex and metolazone. 02/27/2018 No overnight events patient was switched to Rocephin as patient has streptococci. Vascular surgery evaluated the patient local wound care patient probably will be discharged to subacute rehabilitation, most probably on Thursday02/28/2018 No overnight events sodium did improve to 136 Constitutional: Denied any fatigue denied any fever. Cardio vascular: denied any chest pain, palpitations Gastrointestinal denied any nausea vomiting Pulmonary: Denied any shortness of breath cough Neurologic denied any new focal deficits Objective - Vital Signs Vital signs: Vital Signs Temp 98.0 F 02/28/18 06:06 Pulse 89 02/28/18 06:06 Resp 16 02/28/18 06:06 BP 148/60 02/28/18 06:06 Pulse Ox 94 L 02/28/18 06:06 Intake & Output 02/27/18 02/28/18 02/28/18 18:59 06:59 18:59 Intake Total 360 300 Output Total 1900 200 Balance -1540 -200 300 Weight 170.6 kg Intake: Oral 360 300 Output: Urine 1900 200 Uretheral (Rodriguez) 1400 Other: Voiding Method Indwelling Catheter Indwelling Catheter # Voids 2 - Exam PHYSICAL EXAMINATION: GENERAL: The patient is alert and oriented x3, not in any acute distress. Morbidly obese HEENT: Pupils are round and equally reacting to light. EOMI. No scleral icterus. No conjunctival pallor. Normocephalic, atraumatic. No pharyngeal erythema. No thyromegaly. CARDIOVASCULAR: S1 and S2 present. No murmurs, rubs, or gallops. PULMONARY: Chest is clear to auscultation, no wheezing or crackles. ABDOMEN: Soft, nontender, nondistended, normoactive bowel sounds. No palpable organomegaly. MUSCULOSKELETAL: No joint swelling or deformity. EXTREMITIES: Bilateral lower extremity swelling right leg is much more swollen with a big lipoma in the thigh area circumferential redness extending up to the knee in the leg with serosanguineous dryness and occasional areas of process and complete skin breakdown NEUROLOGICAL: Gross neurological examination did not reveal any focal deficits. SKIN: No rashes. - Labs CBC & Chem 7: 02/26/18 07:37 02/28/18 07:21 Labs: Abnormal Lab Results - Last 24 Hours (Table) 02/27/18 02/27/18 02/28/18 Range/Units 17:05 20:49 07:15 Sodium (137-145) mmol/L Chloride (98-107) mmol/L Carbon Dioxide (22-30) mmol/L Glucose (74-99) mg/dL POC Glucose (mg/dL) 170 H 151 H 127 H (75-99) mg/dL 02/28/18 02/28/18 Range/Units 07:21 11:42 Sodium 136 L (137-145) mmol/L Chloride 95 L (98-107) mmol/L Carbon Dioxide 32 H (22-30) mmol/L Glucose 116 H (74-99) mg/dL POC Glucose (mg/dL) 132 H (75-99) mg/dL Assessment and Plan Plan: -Sepsis: Secondary to right leg cellulitis infectious disease was consulted patient is on broad-spectrum antibiotics we will use diuretics at a lower dose or pedal edema. Patient's wound cultures are positive for streptococci -Hyponatremia hypovolemic hyponatremia secondary to excessive diuretic therapy, improved sodium after cutting down the dose of her diuretic therapy. -Type 2 diabetes mellitus -Hyperlipidemia -Sleep apnea and uses CPAP machine at home next Morbid obesity -Coronary artery disease For above-mentioned chronic medical problems patient will be continued on appropriate home medications Patient probably can be discharged to subacute rehabilitation tomorrow
[2018-02-28] MEDS: MAGNESIUM OXIDE 400 MG TAB PO SCH (13:59)
[2018-02-28 17:24] LABS: Glucose,Whole Blood 150 mg/dL (75-99)
[2018-02-28] MEDS ORDERED: CEPHALEXIN 500 MG CAP PO SCH (18:00)
[2018-02-28 20:36] LABS: Glucose,Whole Blood 143 mg/dL (75-99)
--- NOTE | 2018-03-01 00:40 | PN ---
PROGRESS NOTE DATE OF SERVICE: 02/28/2018. REASON FOR FOLLOWUP: The patient lost his IV access and was refusing placement of any IV, and a question of possible switch to oral antibiotic. INTERVAL HISTORY: The patient is a 57-year-old male who has been admitted to the hospital with bilateral lower extremity cellulitis. The patient did have evidence of a Streptococcus agalactiae bacteremia and is currently on IV Rocephin, being evaluated by Dr. Shelton. I was contacted by the patient's RN as the patient has lost his IV and he is refusing for placement of another IV and wonders if he can be switched to an oral antibiotic. The patient is currently afebrile, has been breathing comfortably. Denies significant chest pain or any cough. Pain to the leg is slightly improved. Still have some drainage. EXAMINATION: Blood pressure 140/75 with a pulse of 91, temperature 97.1. He is 94% on room air. GENERAL DESCRIPTION: A middle aged male up in the chair in no distress. RESPIRATORY SYSTEM: Unlabored breathing. Clear to auscultation anteriorly. HEART: S1, S2. Regular rate and rhythm. ABDOMEN: Legs are currently up. No obvious drainage on the dressing. LABS: BUN of 12, creatinine 0.68. DIAGNOSTIC IMPRESSION AND PLAN: Patient with bilateral lower extremity cellulitis with group B strep bacteremia. The patient is advised to get a peripheral IV as the patient needs to continue with IV Rocephin at this point because of his bacteremia and still significant cellulitis IV. If IV cannot be placed, consultation will be given for placement of a main line. MMODL / IJN: [id number] /
[2018-03-01] MEDS: HYDROcodone/APAP 10-325MG 1 EACH TAB PO PRN ×3 (03:29→21:04)
[2018-03-01 07:26] LABS: Glucose,Whole Blood 147 mg/dL (75-99)
[2018-03-01] MEDS: PATIENT'S OWN MED (Liraglutide [Victoza 2-Pak] 1.8 MG) SQ SCH (07:57)
[2018-03-01] MEDS: cefTRIAXone IN SWFI 2,000 MG/20 ML SYRINGE IVP SCH ×2 (07:57→12:35)
[2018-03-01 08:00] VITALS: RESP 20
[2018-03-01] MEDS: INSULIN ASPART 100 UNIT/ML 1 ML 10 ML VIAL SQ SCH ×7 (08:07→22:09)
[2018-03-01] MEDS: BUMETANIDE 1 MG TAB PO SCH (08:09)
[2018-03-01] MEDS: INSULIN DETEMIR 100 UNIT/ML 10 ML VIAL SQ SCH ×2 (08:09→22:10)
[2018-03-01] MEDS: LISINOPRIL 2.5 MG TAB PO SCH (08:09)
[2018-03-01] MEDS: POTASSIUM CHLORIDE ER 20 MEQ TAB.ER PO SCH ×3 (08:10→21:04)
[2018-03-01] MEDS: HEPARIN SODIUM,PORCINE 5,000 UNIT/ML 1 ML VIAL SQ SCH ×2 (08:10→16:13)
[2018-03-01] MEDS: PANTOPRAZOLE 40 MG TABLET PO SCH ×2 (08:10→08:13)
[2018-03-01] MEDS: CARVEDILOL 3.125 MG TAB PO SCH (08:10)
[2018-03-01] MEDS: FENOFIBRATE 160 MG TAB PO SCH (08:10)
[2018-03-01] MEDS: GABAPENTIN 300 MG CAP PO SCH ×3 (08:10→21:04)
[2018-03-01] MEDS: SILVER sulfADIAZINE Cream 400 GM 1 APPLIC APPLIC TOPICAL SCH (08:11)
[2018-03-01 12:04] LABS: Glucose,Whole Blood 120 mg/dL (75-99)
[2018-03-01] MEDS: MAGNESIUM OXIDE 400 MG TAB PO SCH (12:39)
[2018-03-01] MEDS: FUROSEMIDE 10 MG/ML 4 ML VIAL IV SCH (12:42)
[2018-03-01] MEDS: SPIRONOLACTONE 25 MG TAB PO SCH (12:43)
--- NOTE | 2018-03-01 13:14 | PN ---
PROGRESS NOTE DATE OF SERVICE: 03/01/2018. INTERVAL HISTORY: This 57-year-old gentleman who was admitted with bilateral leg cellulitis and sepsis is being closely monitored. Patient also hypovolemic hyponatremia. The patient is being closely monitored. Infectious Disease following the patient closely. Also, patient is refusing IV. No chest pain. No palpitation. REVIEW OF SYSTEMS: CARDIOVASCULAR: No angina. RESPIRATORY: As mentioned earlier. GI: As mentioned. : No dysuria. NERVOUS SYSTEM: No numbness or weakness. CURRENT MEDICATIONS: 1. Bumex 1 mg b.i.d. 2. Coreg 3.125 mg. 3. Rocephin 2 g daily. 4. Lofibra. 5. Neurontin. 6. Heparin. 7. Levemir. 8. Toradol. 9. Magnesium oxide. 10.Zaroxolyn. 11.Nitrostat. 12.Protonix. 13.K-Dur. EXAM: Alert and oriented x3. Pulse 92, blood pressure 120/54, respirations 20, temperature 98.3, pulse ox 98% on room air. HEENT: Conjunctivae normal. NECK: No jugular venous distention. CARDIOVASCULAR: S1, S2. RESPIRATORY: Breath sounds diminished in the bases. A few rhonchi, no crackles. ABDOMEN: Soft, nontender. LEGS: Bilateral leg swelling and erythema. Discharge and swelling present. NERVOUS SYSTEM: No focal deficits. LABS: WBC 6.2, hemoglobin 12.2, sodium 136. ASSESSMENT: 1. Acute bilateral leg cellulitis, right more than the left with sepsis. 2. Hypovolemic hypernatremia. 3. Diabetes mellitus type 2. 4. Hypertension. 5. Hyperlipidemia. 6. History of sleep apnea, on CPAP. 7. Morbid obesity. 8. History of coronary artery disease. 9. History of asthma. 10.History of congestive heart failure. 11.History of myocardial infarction. 12.History of CPAP. 13.History of coronary artery disease, stent. 14.History of anxiety. RECOMMENDATIONS AND DISCUSSION: This 57-year-old gentleman who presented with multiple complex medical issues, will monitor the patient closely. Continue the current management and symptomatic treatment. Otherwise at this time I recommend to continue current medications. Continue the antibiotics. I would also recommend some diuretics and continue to monitor. Further recommendations to follow. Antibiotics. Prognosis guarded. MMODL / IJN: [id number] / MTDWilman
[2018-03-01 17:25] LABS: Glucose,Whole Blood 119 mg/dL (75-99)
[2018-03-01] MEDS ORDERED: ATORVASTATIN 10 MG TAB PO SCH (17:30)
--- NOTE | 2018-03-01 19:39 | P.PN ---
Subjective Progress Note Date: 03/01/18 This is a 57-year-old male patient well known to ID service because of bilateral lower extremity venous stasis ulcerations and seen in the wound healing center for a long period of time. Patient was discharged in the wound healing Center in October 2015. At that time patient was refusing to use a compressive sleeve. Patient was to follow-up in the office. Patient has had ongoing large wound weeping to the right lower extremity. He states for the last few days he has had fever, chills, rigors. He states his head was cloudy and he couldn't feel his right leg. He fell onto a wooden chair and then got himself up and then fell backwards against the wall slid down the wall and laid on the floor. He tried to call the neighbors and did not get an answer. He was finally able to get himself back up into a chair and knocked on the wall for the other neighbor to come and they called EMS and took him to [facility] initially and he was seen in the emergency center. He was found to have a lactic acid of 3.2, white count of 16.2, BNP 713, creatinine was 1.3, blood sugar 334. He was given Zosyn, Tylenol and Toradol and and then transferred to [facility] as a direct admission. Patient does state that his blood sugars are out of control and running between 200-250 at home. He has no idea on his hemoglobin A1c. He presented with a lactic acid of 1.5, white count of 12, afebrile, elevated heart rate at 115. Albumin was 2.9. Wound culture, urine culture, blood culture are status received. He has been on Zosyn and vancomycin. Patient denies any change in appetite. No nausea, vomiting or diarrhea. He denies any difficulty or pain with urination but states a Rodriguez catheter was placed because he could not stand to urinate. She denies any chest pain. No shortness of breath at rest. According to the patient's nurse. Patient did have diarrhea during the night but none on the day shift. 03/01/2018 the patient is sitting up in a chair sound sleep walking in the room. He does arouse easily and is able to converse without great difficulty. He is concerned that he is not getting enough diuretics. He is on IV Lasix which she relates may not be as good as his oral Bumex. The nursing staff relates that he is on fluid restriction at this time. The patient does get up in maneuver to the bathroom and urinates without difficulties. He is quite surprisingly ambulatory despite his obesity, shortness of breath and lower extremity edema and ulcerations. Since having the left leg wrapped though is doing considerably better. Right lower extremity continues to have drainage nursing is changing it at least twice per day. He is denying fevers or chills but is still short of breath. Objective - Vital Signs Vital signs: Vital Signs Temp 98.3 F 03/01/18 15:00 Pulse 90 03/01/18 15:00 Resp 20 03/01/18 15:00 BP 109/55 03/01/18 15:00 Pulse Ox 94 L 03/01/18 15:00 Intake & Output 03/01/18 03/01/18 03/02/18 06:59 18:59 06:59 Intake Total 2200 Balance 2200 Intake: Oral 2200 Other: Voiding Method Toilet Toilet # Voids 2 1 - Constitutional Constitutional Comment(s): Gen: This is a morbidly obese 57-year-old male. He is found sleeping and awakens easily to verbal stimuli. He appears to be in no acute distress. HEENT: Head is atraumatic, normocephalic. Pupils equal, round. Sclerae is anicteric. Conjunctiva pink. Mucous members of the mouth are moist. Patient is edentulous. No thrush noted. NECK: Supple. No JVD. No lymphadenopathy. No thyromegaly. LUNGS: Clear to auscultation. No wheezes or rhonchi. No intercostal retractions. HEART: Regular rate and rhythm. Systolic murmur. ABDOMEN: Soft. Bowel sounds are present. No masses. No tenderness. Mild redness under abdominal folds. Rodriguez catheter draining dark alphonso urine. EXTREMITIES: Right lower extremity has dark chronic color changes to the lower leg. The left lower extremity his improvement to the edema there is no drainage today. Right lower extremity continues to have a large amount of drainage ulceration is still present the intense erythema is improving it is still somewhat tender. The extensive edema to the right leg has improved somewhat and further improved on the left. Dorsalis pedis is very weakly palpable on the right and =1 on the left. NEUROLOGICAL: Patient is awake, alert and oriented x3. - Labs CBC & Chem 7: 02/26/18 07:37 02/28/18 07:21 Labs: Abnormal Lab Results - Last 24 Hours (Table) 02/28/18 03/01/18 03/01/18 Range/Units 20:25 07:21 11:54 POC Glucose (mg/dL) 143 H 147 H 120 H (75-99) mg/dL 03/01/18 Range/Units 17:23 POC Glucose (mg/dL) 119 H (75-99) mg/dL Microbiology - Last 24 Hours (Table) 02/24/18 23:47 Blood Culture Gram Stain - Final Blood Blood Culture - Final Strep agalactiae - (group b) Coagulase Negative Staph 02/24/18 23:10 Gram Stain - Final Leg - Right Wound Culture - Final Laboratory Results WBC 6.8 k/uL (3.8-10.6) 02/26/18 07:37 RBC 4.16 m/uL (4.30-5.90) L 02/26/18 07:37 Hgb 12.6 gm/dL (13.0-17.5) L 02/26/18 07:37 Hct 37.9 % (39.0-53.0) L 02/26/18 07:37 MCV 91.2 fL (80.0-100.0) 02/26/18 07:37 MCH 30.3 pg (25.0-35.0) 02/26/18 07:37 MCHC 33.2 g/dL (31.0-37.0) 02/26/18 07:37 RDW 14.9 % (11.5-15.5) 02/26/18 07:37 Plt Count 170 k/uL (150-450) 02/26/18 07:37 Neutrophils % 87 % 02/24/18 23:47 Lymphocytes % 4 % 02/24/18 23:47 Monocytes % 5 % 02/24/18 23:47 Eosinophils % 1 % 02/24/18 23:47 Basophils % 0 % 02/24/18 23:47 Neutrophils # 10.5 k/uL (1.3-7.7) H 02/24/18 23:47 Lymphocytes # 0.5 k/uL (1.0-4.8) L 02/24/18 23:47 Monocytes # 0.6 k/uL (0-1.0) 02/24/18 23:47 Eosinophils # 0.1 k/uL (0-0.7) 02/24/18 23:47 Basophils # 0.0 k/uL (0-0.2) 02/24/18 23:47 Sodium 136 mmol/L (137-145) L 02/28/18 07:21 Potassium 4.1 mmol/L (3.5-5.1) 02/28/18 07:21 Chloride 95 mmol/L (98-107) L 02/28/18 07:21 Carbon Dioxide 32 mmol/L (22-30) H 02/28/18 07:21 Anion Gap 9 mmol/L 02/28/18 07:21 BUN 12 mg/dL (9-20) 02/28/18 07:21 Creatinine 0.68 mg/dL (0.66-1.25) 02/28/18 07:21 Est GFR (CKD-EPI)AfAm >90 (>60 ml/min/1.73 sqM) 02/28/18 07:21 Est GFR (CKD-EPI)NonAf >90 (>60 ml/min/1.73 sqM) 02/28/18 07:21 Glucose 116 mg/dL (74-99) H 02/28/18 07:21 POC Glucose (mg/dL) 119 mg/dL (75-99) H 03/01/18 17:23 POC Glu Project Manager/Team Coach ID Tyra Lozano 03/01/18 17:[address] Glu mg/dL 223 02/24/18 23:47 Hemoglobin A1c 9.4 % (4.0-6.0) H 02/24/18 23:47 Plasma Lactic Acid Osiel 1.5 mmol/L (0.7-2.0) 02/25/18 05:14 Calcium 8.4 mg/dL (8.4-10.2) 02/28/18 07:21 Magnesium 2.1 mg/dL (1.6-2.3) 02/24/18 23:47 Total Bilirubin 1.6 mg/dL (0.2-1.3) H 02/24/18 23:47 AST 38 U/L (17-59) 02/24/18 23:47 ALT 35 U/L (21-72) 02/24/18 23:47 Alkaline Phosphatase 55 U/L (38-126) 02/24/18 23:47 NT-Pro-B Natriuret Pep 575 pg/mL 02/24/18 23:47 Total Protein 6.5 g/dL (6.3-8.2) 02/24/18 23:47 Albumin 2.9 g/dL (3.5-5.0) L 02/24/18 23:47 Vancomycin Trough 19.9 ug/mL 02/26/18 07:37 Microbiology 02/24/18 23:47 Blood Blood Culture Gram Stain - Final 02/24/18 23:47 Blood Blood Culture - Final Strep agalactiae - (group b) Coagulase Negative Staph 02/24/18 23:10 Leg - Right Gram Stain - Final 02/24/18 23:10 Leg - Right Wound Culture - Final 02/24/18 23:10 Leg - Right Anaerobic Culture - Final Anaerobic Gm Negative Bacilli 02/24/18 23:56 Urine,Clean Catch Urine Culture - Final 02/24/18 23:47 Blood Blood Culture - Final Assessment and Plan (1) Lymphedema praecox Current Visit: No Status: Acute Code(s): I89.0 - LYMPHEDEMA, NOT ELSEWHERE CLASSIFIED SNOMED Code(s): 72247724 (2) Venous stasis ulcers of both lower extremities Current Visit: No Status: Acute Code(s): I83.019 - VARICOSE VEINS OF RIGHT LOWER EXTREMITY W ULCER OF UNSP SITE SNOMED Code(s): 399103215 (3) Poorly controlled type 2 diabetes mellitus with complication Current Visit: Yes Status: Acute Code(s): E11.8 - TYPE 2 DIABETES MELLITUS WITH UNSPECIFIED COMPLICATIONS; E11.65 - TYPE 2 DIABETES MELLITUS WITH HYPERGLYCEMIA SNOMED Code(s): 68964097 (4) Cellulitis of right lower extremity Narrative/Plan: Patient is feeling poorly is with shortness of breath and feverfamily is the chronic extensive ulceration of the right lower extremity that is present for many many months apparently markedly worsened and became voluminous and its discharge. Eventually fell to the floor and couldn't get up and neighbors called EMS to bring the hospital, he was with evidence of lactic acidosis leukocytosis and sepsis. Because of this. infectious diseases consultation was requested. At this time since entering Hospital is feeling somewhat better. Lactic acid is improved blood sugars are improving he received resuscitation. He had this time as showing some improvement. Will utilize the absorptive pads to observe the drainage from the right leg. We'll give the wrap the left leg with Silvadene wrap for now. Cultures are process. We'll continue the Zosyn and vancomycin based on prior cultures. 03/01/2018 patient has had some improvement. He is no longer febrile and leukocytosis has improved. Blood sugars are improving with the caloric restriction and current protocol. Patient plans on going back home at discharge. We discussed with discharge planning that he will utilize the home care nurse, he does not desire to come to the wound healing Center. He could have limited follow-up in the office and they can go back to the visiting physician for ongoing long-term follow-up. Currently Silvadene is being used with some improvement in conjunction with antibiotic therapy. As noted he had a positive blood culture at admission for group B strep fortunately is susceptible to quinolone therapy. At discharge giving his many difficulties he is not a good candidate for outpatient intravenous antibiotic therapy and fortunately able to be treated with levofloxacin. Continue the Rocephin for now until he is ready for discharge to home. Current goal is to improve his massive edema before his discharge. Current Visit: Yes Status: Acute Code(s): L03.115 - CELLULITIS OF RIGHT LOWER LIMB SNOMED Code(s): 675231838
[2018-03-01 22:09] LABS: Glucose,Whole Blood 113 mg/dL (75-99)
[2018-03-02] MEDS: HEPARIN SODIUM,PORCINE 5,000 UNIT/ML 1 ML VIAL SQ SCH ×2 (02:21→08:24)
[2018-03-02] MEDS: FUROSEMIDE 10 MG/ML 4 ML VIAL IV SCH ×2 (02:21→08:24)
[2018-03-02] MEDS: HYDROcodone/APAP 10-325MG 1 EACH TAB PO PRN ×3 (03:03→14:47)
[2018-03-02 06:22] VITALS: BP 139/84; PULSE 82; TEMP 97.9
[2018-03-02 07:20] LABS: Glucose,Whole Blood 122 mg/dL (75-99)
[2018-03-02] MEDS: INSULIN ASPART 100 UNIT/ML 1 ML 10 ML VIAL SQ SCH ×4 (08:21→13:27)
[2018-03-02] MEDS: GABAPENTIN 300 MG CAP PO SCH (08:22)
[2018-03-02] MEDS: PATIENT'S OWN MED (Liraglutide [Victoza 2-Pak] 1.8 MG) SQ SCH (08:22)
[2018-03-02] MEDS: METOLAZONE 5 MG TAB PO SCH (08:22)
[2018-03-02] MEDS: PANTOPRAZOLE 40 MG TABLET PO SCH (08:23)
[2018-03-02] MEDS: SPIRONOLACTONE 25 MG TAB PO SCH (08:23)
[2018-03-02] MEDS: FENOFIBRATE 160 MG TAB PO SCH (08:23)
[2018-03-02] MEDS: POTASSIUM CHLORIDE ER 20 MEQ TAB.ER PO SCH (08:23)
[2018-03-02] MEDS: cefTRIAXone IN SWFI 2,000 MG/20 ML SYRINGE IVP SCH (08:24)
[2018-03-02] MEDS: SILVER sulfADIAZINE Cream 400 GM 1 APPLIC APPLIC TOPICAL SCH (08:25)
[2018-03-02] MEDS: LISINOPRIL 2.5 MG TAB PO SCH (08:27)
[2018-03-02] MEDS: CARVEDILOL 3.125 MG TAB PO SCH (08:27)
[2018-03-02] MEDS: INSULIN DETEMIR 100 UNIT/ML 10 ML VIAL SQ SCH (08:28)
[2018-03-02] MEDS ORDERED: ASPIRIN 325 MG TAB PO SCH (09:00)
[2018-03-02] MEDS ORDERED: DIGOXIN 125 MCG TAB PO SCH (09:00)
[2018-03-02] MEDS ORDERED: BUMETANIDE 1 MG TAB PO SCH (10:45)
[2018-03-02 11:13] LABS: Anion Gap 6 mmol/L; Blood Urea Nitrogen 10 mg/dL (9-20); Calcium 8.9 mg/dL (8.4-10.2); Carbon Dioxide 32 mmol/L (22-30); Chloride 98 mmol/L (98-107); Glucose 147 mg/dL (74-99); Potassium 4.4 mmol/L (3.5-5.1); Sodium 136 mmol/L (137-145)
[2018-03-02 11:25] LABS: Basophils % (A) 1 %; Eosinophils # (A) 0.2 k/uL (0-0.7); Eosinophils % (A) 4 %; HCT 42.8 % (39.0-53.0); HGB 13.7 gm/dL (13.0-17.5); Lymphocytes # (A) 0.9 k/uL (1.0-4.8); Lymphocytes % (A) 15 %; MCH 28.8 pg (25.0-35.0); MCHC 31.9 g/dL (31.0-37.0); MCV 90.1 fL (80.0-100.0); Mean Platelet Volume 7.2; Monocytes # (A) 0.5 k/uL (0-1.0); Monocytes % (A) 9 %; Neutrophils % (A) 69 %; Platelet Count 290 k/uL (150-450); RBC 4.75 m/uL (4.30-5.90); RDW 14.7 % (11.5-15.5); WBC 5.8 k/uL (3.8-10.6)
[2018-03-02] MEDS: MAGNESIUM OXIDE 400 MG TAB PO SCH (11:36)
[2018-03-02 12:11] LABS: Glucose,Whole Blood 124 mg/dL (75-99)
--- NOTE | 2018-03-02 18:15 | DS ---
DISCHARGE SUMMARY DATE OF SERVICE: 03/02/2018. FINAL DIAGNOSES: 1. Acute bilateral leg cellulitis, right more than the left with sepsis, present on admission. 2. Hypovolemic hyponatremia. 3. Diabetes mellitus type 2. 4. Hypertension. 5. Hyperlipidemia. 6. History of sleep apnea on CPAP. 7. Morbid obesity. 8. History of coronary artery disease, stable. 9. History of asthma. 10.History of congestive heart failure. 11.History of myocardial infarction. 12.History of CPAP. 13.History of CAD, stent. 14.History of anxiety disorder. The patient will be discharged in stable condition with guarded prognosis. TOTAL TIME TAKEN: 35 minutes. HISTORY OF PRESENT ILLNESS: This 57-year-old gentleman admitted with multiple medical problems, also being followed by Dr. Shavonne Morrell in the outpatient setting. Due to the IV antibiotics, patient improved significantly; however, the patient refused IV line and IV antibiotics and patient would like to go home at this time. The patient will be discharged after clearance from Infectious Disease in a stable condition with overall guarded prognosis. EXAM: Vitals are stable. CARDIOVASCULAR: S1, S2 muffled. ABDOMEN: Soft. LEGS: Bilateral leg edema and cellulitis present. DISCHARGE ADVICE AND MEDICATIONS: 1. Diet is cardiac diet. 2. Activity limited until followup. 3. Follow up with Shavonne Morrell in 2-[address] days[address] 4[address] up [address] Shelton as advised. Wound care as recommended by Dr. Shelton. 5. Medications: a. Aspirin 320 mg p.o. daily. b. Bumex 2 mg p.o. b.i.d. c. Coreg 3.125 mg p.o. daily. d. Lanoxin 120 mcg p.o. daily. e. Trilipix 135 mg p.o. daily. f. Gabapentin 600 mg t.i.d. g. Hydrocodone 1 tablet every 6 hours p.r.n. h. Lantus 120 units subcu b.i.d. i. Apidra 10 units subcu t.i.d. j. Victoza 1.8 subcu daily. k. Zestril 2.5 mg daily. l. Mevacor 40 mg at supper. m. Magnesium oxide 400 mg p.o. daily. n. Zaroxolyn 10 mg p.o. Thursday, Thursday, . o. Nitrostat 0.4 mg sublingual p.r.n. p. Klor-Con 20 mg p.o. daily. q. Aldactone 25 mg p.o. r. Demadex 100 mg p.o. daily. s. Silver sulfadiazine for local application. Once again, the patient will be discharged in stable condition with a guarded prognosis. MMODL / IJN: [id number] /
--- NOTE | 2018-03-02 23:41 | P.PN ---
Subjective Progress Note Date: 03/02/18 This is a 57-year-old male patient well known to ID service because of bilateral lower extremity venous stasis ulcerations and seen in the wound healing center for a long period of time. Patient was discharged in the wound healing Center in October 2015. At that time patient was refusing to use a compressive sleeve. Patient was to follow-up in the office. Patient has had ongoing large wound weeping to the right lower extremity. He states for the last few days he has had fever, chills, rigors. He states his head was cloudy and he couldn't feel his right leg. He fell onto a wooden chair and then got himself up and then fell backwards against the wall slid down the wall and laid on the floor. He tried to call the neighbors and did not get an answer. He was finally able to get himself back up into a chair and knocked on the wall for the other neighbor to come and they called EMS and took him to [facility] initially and he was seen in the emergency center. He was found to have a lactic acid of 3.2, white count of 16.2, BNP 713, creatinine was 1.3, blood sugar 334. He was given Zosyn, Tylenol and Toradol and and then transferred to [facility] as a direct admission. Patient does state that his blood sugars are out of control and running between 200-250 at home. He has no idea on his hemoglobin A1c. He presented with a lactic acid of 1.5, white count of 12, afebrile, elevated heart rate at 115. Albumin was 2.9. Wound culture, urine culture, blood culture are status received. He has been on Zosyn and vancomycin. Patient denies any change in appetite. No nausea, vomiting or diarrhea. He denies any difficulty or pain with urination but states a Rodriguez catheter was placed because he could not stand to urinate. She denies any chest pain. No shortness of breath at rest. According to the patient's nurse. Patient did have diarrhea during the night but none on the day shift. 03/01/2018 the patient is sitting up in a chair sound sleep walking in the room. He does arouse easily and is able to converse without great difficulty. He is concerned that he is not getting enough diuretics. He is on IV Lasix which she relates may not be as good as his oral Bumex. The nursing staff relates that he is on fluid restriction at this time. The patient does get up in maneuver to the bathroom and urinates without difficulties. He is quite surprisingly ambulatory despite his obesity, shortness of breath and lower extremity edema and ulcerations. Since having the left leg wrapped though is doing considerably better. Right lower extremity continues to have drainage nursing is changing it at least twice per day. He is denying fevers or chills but is still short of breath. 03/02/2018 patient will not elevate legs and refused further IV therapy. Objective - Vital Signs Vital signs: Vital Signs Temp 97.9 F 03/02/18 06:00 Pulse 82 03/02/18 06:00 Resp 20 03/02/18 06:00 BP 139/84 03/02/18 06:00 Pulse Ox 98 03/02/18 11:37 Intake & Output 03/02/18 03/02/18 03/03/18 06:59 18:59 06:59 Intake Total 800 Output Total 200 Balance 800 -200 Weight 170.6 kg Intake: Oral 800 Output: Urine 200 Other: Voiding Method Toilet Toilet # Voids 1 2 # Bowel Movements 1 - Exam Gen: This is a morbidly obese 57-year-old male. He is found sleeping and awakens easily to verbal stimuli. He appears to be in no acute distress. HEENT: Head is atraumatic, normocephalic. Pupils equal, round. Sclerae is anicteric. Conjunctiva pink. Mucous members of the mouth are moist. Patient is edentulous. No thrush noted. NECK: Supple. No JVD. No lymphadenopathy. No thyromegaly. LUNGS: Clear to auscultation. No wheezes or rhonchi. No intercostal retractions. HEART: Regular rate and rhythm. Systolic murmur. ABDOMEN: Soft. Bowel sounds are present. No masses. No tenderness. Mild redness under abdominal folds. Rodriguez catheter draining dark alphonso urine. EXTREMITIES: Right lower extremity has dark chronic color changes to the lower leg. The left lower extremity his improvement to the edema there is no drainage today. Right lower extremity continues to have a large amount of drainage ulceration is still present the intense erythema is improving it is still somewhat tender. The extensive edema to the right leg has improved somewhat and further improved on the left. Dorsalis pedis is very weakly palpable on the right and =1 on the left. NEUROLOGICAL: Patient is awake, alert and oriented x3. - Labs CBC & Chem 7: 03/02/18 10:33 03/02/18 10:33 Labs: Abnormal Lab Results - Last 24 Hours (Table) 03/02/18 03/02/18 03/02/18 Range/Units 07:18 10:33 10:33 Lymphocytes # 0.9 L (1.0-4.8) k/uL Sodium 136 L (137-145) mmol/L Carbon Dioxide 32 H (22-30) mmol/L Creatinine 0.60 L (0.66-1.25) mg/dL Glucose 147 H (74-99) mg/dL POC Glucose (mg/dL) 122 H (75-99) mg/dL 03/02/18 Range/Units 12:09 Lymphocytes # (1.0-4.8) k/uL Sodium (137-145) mmol/L Carbon Dioxide (22-30) mmol/L Creatinine (0.66-1.25) mg/dL Glucose (74-99) mg/dL POC Glucose (mg/dL) 124 H (75-99) mg/dL Laboratory Results WBC 5.8 k/uL (3.8-10.6) 03/02/18 10:33 RBC 4.75 m/uL (4.30-5.90) 03/02/18 10:33 Hgb 13.7 gm/dL (13.0-17.5) 03/02/18 10:33 Hct 42.8 % (39.0-53.0) 03/02/18 10:33 MCV 90.1 fL (80.0-100.0) 03/02/18 10:33 MCH 28.8 pg (25.0-35.0) 03/02/18 10:33 MCHC 31.9 g/dL (31.0-37.0) 03/02/18 10:33 RDW 14.7 % (11.5-15.5) 03/02/18 10:33 Plt Count 290 k/uL (150-450) 03/02/18 10:33 Neutrophils % 69 % 03/02/18 10:33 Lymphocytes % 15 % 03/02/18 10:33 Monocytes % 9 % 03/02/18 10:33 Eosinophils % 4 % 03/02/18 10:33 Basophils % 1 % 03/02/18 10:33 Neutrophils # 4.0 k/uL (1.3-7.7) 03/02/18 10:33 Lymphocytes # 0.9 k/uL (1.0-4.8) L 03/02/18 10:33 Monocytes # 0.5 k/uL (0-1.0) 03/02/18 10:33 Eosinophils # 0.2 k/uL (0-0.7) 03/02/18 10:33 Basophils # 0.0 k/uL (0-0.2) 03/02/18 10:33 Sodium 136 mmol/L (137-145) L 03/02/18 10:33 Potassium 4.4 mmol/L (3.5-5.1) 03/02/18 10:33 Chloride 98 mmol/L (98-107) 03/02/18 10:33 Carbon Dioxide 32 mmol/L (22-30) H 03/02/18 10:33 Anion Gap 6 mmol/L 03/02/18 10:33 BUN 10 mg/dL (9-20) 03/02/18 10:33 Creatinine 0.60 mg/dL (0.66-1.25) L 03/02/18 10:33 Est GFR (CKD-EPI)AfAm >90 (>60 ml/min/1.73 sqM) 03/02/18 10:33 Est GFR (CKD-EPI)NonAf >90 (>60 ml/min/1.73 sqM) 03/02/18 10:33 Glucose 147 mg/dL (74-99) H 03/02/18 10:33 POC Glucose (mg/dL) 124 mg/dL (75-99) H 03/02/18 12:09 POC Glu Pole Inspector SAGAR Vnadana Scott 03/02/18 12:[address] Glu mg/dL 223 02/24/18 23:47 Hemoglobin A1c 9.4 % (4.0-6.0) H 02/24/18 23:47 Plasma Lactic Acid Osiel 1.5 mmol/L (0.7-2.0) 02/25/18 05:14 Calcium 8.9 mg/dL (8.4-10.2) 03/02/18 10:33 Magnesium 2.1 mg/dL (1.6-2.3) 02/24/18 23:47 Total Bilirubin 1.6 mg/dL (0.2-1.3) H 02/24/18 23:47 AST 38 U/L (17-59) 02/24/18 23:47 ALT 35 U/L (21-72) 02/24/18 23:47 Alkaline Phosphatase 55 U/L (38-126) 02/24/18 23:47 NT-Pro-B Natriuret Pep 575 pg/mL 02/24/18 23:47 Total Protein 6.5 g/dL (6.3-8.2) 02/24/18 23:47 Albumin 2.9 g/dL (3.5-5.0) L 02/24/18 23:47 Vancomycin Trough 19.9 ug/mL 02/26/18 07:37 Microbiology 02/24/18 23:47 Blood Blood Culture Gram Stain - Final 02/24/18 23:47 Blood Blood Culture - Final Strep agalactiae - (group b) Coagulase Negative Staph 02/24/18 23:10 Leg - Right Gram Stain - Final 02/24/18 23:10 Leg - Right Wound Culture - Final 02/24/18 23:10 Leg - Right Anaerobic Culture - Final Anaerobic Gm Negative Bacilli 02/24/18 23:56 Urine,Clean Catch Urine Culture - Final 02/24/18 23:47 Blood Blood Culture - Final Assessment and Plan (1) Lymphedema praecox Status: Acute Code(s): I89.0 - LYMPHEDEMA, NOT ELSEWHERE CLASSIFIED SNOMED Code(s): 80546332 (2) Venous stasis ulcers of both lower extremities Status: Acute Code(s): I83.019 - VARICOSE VEINS OF RIGHT LOWER EXTREMITY W ULCER OF UNSP SITE SNOMED Code(s): 142675587 (3) Poorly controlled type 2 diabetes mellitus with complication Status: Acute Code(s): E11.8 - TYPE 2 DIABETES MELLITUS WITH UNSPECIFIED COMPLICATIONS; E11.65 - TYPE 2 DIABETES MELLITUS WITH HYPERGLYCEMIA SNOMED Code(s): 32994402 (4) Cellulitis of right lower extremity Narrative/Plan: Patient is feeling poorly is with shortness of breath and feverfamily is the chronic extensive ulceration of the right lower extremity that is present for many many months apparently markedly worsened and became voluminous and its discharge. Eventually fell to the floor and couldn't get up and neighbors called EMS to bring the hospital, he was with evidence of lactic acidosis leukocytosis and sepsis. Because of this. infectious diseases consultation was requested. At this time since entering Hospital is feeling somewhat better. Lactic acid is improved blood sugars are improving he received resuscitation. He had this time as showing some improvement. Will utilize the absorptive pads to observe the drainage from the right leg. We'll give the wrap the left leg with Silvadene wrap for now. Cultures are process. We'll continue the Zosyn and vancomycin based on prior cultures. 03/01/2018 patient has had some improvement. He is no longer febrile and leukocytosis has improved. Blood sugars are improving with the caloric restriction and current protocol. Patient plans on going back home at discharge. We discussed with discharge planning that he will utilize the home care nurse, he does not desire to come to the wound healing Center. He could have limited follow-up in the office and they can go back to the visiting physician for ongoing long-term follow-up. Currently Silvadene is being used with some improvement in conjunction with antibiotic therapy. As noted he had a positive blood culture at admission for group B strep fortunately is susceptible to quinolone therapy. At discharge giving his many difficulties he is not a good candidate for outpatient intravenous antibiotic therapy and fortunately able to be treated with levofloxacin. Continue the Rocephin for now until he is ready for discharge to home. Current goal is to improve his massive edema before his discharge. 03/02/2018 patient refused care and is being discharged to home. Given group b strep bactermia needs antibiotic for home, maddi sent to pharmacy. Patient aware of need to finish antibiotics, will see in office for one visit before turning back over to visiting physicians Status: Acute Code(s): L03.115 - CELLULITIS OF RIGHT LOWER LIMB SNOMED Code( s): 845505845
== END 2018-03-02 15:47 | disposition home health service (06) | DRG 871 ==
LOC: 6SEL 21:06 → 4MS4W 02-27 14:14
PROVIDERS: ADMIT Internal Medicine; ATTEND Internal Medicine
DX: A40.1 Sepsis due to streptococcus, group B (principal); G93.41 Metabolic encephalopathy; L03.116 Cellulitis of left lower limb; L03.115 Cellulitis of right lower limb; Z68.43 Body mass index [BMI] 50.0-59.9, adult; E87.1 Hypo-osmolality and hyponatremia; E87.2 Acidosis; L97.919 Non-pressure chronic ulcer of unspecified part of right lower leg with unspecified severity; L97.929 Non-pressure chronic ulcer of unspecified part of left lower leg with unspecified severity; D17.23 Benign lipomatous neoplasm of skin and subcutaneous tissue of right leg; E11.65 Type 2 diabetes mellitus with hyperglycemia; E66.01 Morbid (severe) obesity due to excess calories; E78.5 Hyperlipidemia, unspecified; E86.1 Hypovolemia; F41.9 Anxiety disorder, unspecified; F51.3 Sleepwalking [somnambulism]; G47.33 Obstructive sleep apnea (adult) (pediatric); I11.0 Hypertensive heart disease with heart failure; I25.10 Atherosclerotic heart disease of native coronary artery without angina pectoris; I25.2 Old myocardial infarction; I50.9 Heart failure, unspecified; I87.309 Chronic venous hypertension (idiopathic) without complications of unspecified lower extremity; I87.8 Other specified disorders of veins; I89.0 Lymphedema, not elsewhere classified; J45.909 Unspecified asthma, uncomplicated; W07.XXXA Fall from chair, initial encounter; Z79.4 Long term (current) use of insulin; Z79.82 Long term (current) use of aspirin; Z79.899 Other long term (current) drug therapy; Z87.891 Personal history of nicotine dependence; Z95.5 Presence of coronary angioplasty implant and graft; E11.9 Type 2 diabetes mellitus without complications; R19.7 Diarrhea, unspecified; T50.1X5A Adverse effect of loop [high-ceiling] diuretics, initial encounter; T50.2X5A Adverse effect of carbonic-anhydrase inhibitors, benzothiadiazides and other diuretics, initial encounter; Z80.9 Family history of malignant neoplasm, unspecified; Z83.2 Family history of diseases of the blood and blood-forming organs and certain disorders involving the immune mechanism
CPT/HCPCS: 80048; 80053; 80202; 83036; 83605; 83735; 83880; 85025; 85027; 87040; 87070; 87075; 87077; 87086; 87186; 87205; 94760

== ENCOUNTER 2019-03-07 14:09 | Inpatient (IN) | payer MEDICARE, OTHER ==
[2019-03-07] MEDS ORDERED: PIPERACILLIN-TAZOBACTAM 3.375 GM in SODIUM CHLORIDE 0.9% 100 ML IVPB STA (15:53)
[2019-03-07] MEDS ORDERED: VANCOMYCIN IV PER PHARMACY 1 EACH MISC MISCELLANE PRN (15:53)
[2019-03-07] MEDS ORDERED: VANCOMYCIN 2,250 MG in SODIUM CHLORIDE 0.9% 500 ML 500 ML IVPB STA (15:59)
--- NOTE | 2019-03-07 16:06 | ED ---
General Adult HPI - General Chief complaint: Extremity Problem,Nontraumatic Stated complaint: infection in leg Time Seen by Provider: 03/07/19 15:03 Source: patient, RN notes reviewed Mode of arrival: wheelchair Limitations: no limitations - History of Present Illness Initial comments: Patient is a pleasant 58-year-old male presenting to the emergency department with concern for right leg wound. Patient states this is a chronic wound however has gotten worse recently. Patient has noticed some increased swelling and older and drainage. Patient states it is weeping. Patient states the visiting nurse did come out and recommended come to the hospital. Patient denies fevers. - Related Data Home Medications Medication Instructions Recorded Confirmed Aspirin 325 mg PO DAILY 04/13/15 11/11/18 Bumetanide [BUMEX] 4 mg PO BID 04/13/15 11/11/18 Insulin Glargine [Lantus] 100 unit SQ Q12HR 04/13/15 11/11/18 Hydrocodone/Acetaminophen [[place] 1 tab PO Q6H 02/25/18 11/11/18 10-325] Insulin Glulisine [Apidra] 20 unit SQ AC-TID 02/25/18 11/11/18 Nitroglycerin Sl Tabs [Nitrostat] 0.4 mg SUBLINGUAL Q5M PRN 02/25/18 11/11/18 Potassium Chloride [Klor-Con 20] 20 meq PO BID 02/25/18 11/11/18 Dulaglutide [Trulicity] 1.5 mg SQ MO 11/11/18 11/11/18 Metolazone [Zaroxolyn] 10 mg PO TUWETH 11/11/18 11/11/18 Pregabalin [Lyrica] 150 mg PO BID 11/11/18 11/11/18 Spironolactone [Aldactone] 50 mg PO DAILY 11/11/18 11/11/18 metFORMIN HCL [Glucophage] 1,000 mg PO HS 11/11/18 11/11/18 Allergies Allergy/AdvReac Type Severity Reaction Status Date / Time adhesive tape Allergy Rash/Hives Verified 03/07/19 14:16 Review of Systems ROS Statement: Those systems with pertinent positive or pertinent negative responses have been documented in the HPI. ROS Other: All systems not noted in ROS Statement are negative. Constitutional: Denies: fever Eyes: Denies: eye pain ENT: Denies: ear pain Respiratory: Denies: cough Cardiovascular: Denies: chest pain Endocrine: Denies: fatigue Gastrointestinal: Denies: abdominal pain Genitourinary: Denies: dysuria Musculoskeletal: Denies: back pain Skin: Reports: rash Neurological: Denies: weakness Past Medical History Past Medical History: Asthma, Coronary Artery Disease (CAD), Heart Failure, COPD, Diabetes Mellitus, Myocardial Infarction ([place]), Prostate Disorder, Skin Disorder, Sleep Apnea/CPAP/BIPAP Additional Past Medical History / Comment(s): Bilateral lower extremity ulcers, edema left lower legs, edema and "tumor" rt leg, diff with ambulation, Last Myocardial Infarction Date:: 1999 History of Any Multi-Drug Resistant Organisms: None Reported Past Surgical History: Heart Catheterization With Stent, Tonsillectomy Additional Past Surgical History / Comment(s): chest tube in for collapsed lung, one cardiac stent, Past Anesthesia/Blood Transfusion Reactions: No Reported Reaction Date of Last Stent Placement:: 1999 Past Psychological History: Anxiety Smoking Status: Former smoker Past Alcohol Use History: None Reported Past Drug Use History: None Reported - Past Family History Father Family Medical History: Unable to Obtain Mother Family Medical History: Unable to Obtain Sister(s) Family Medical History: Cancer General Exam Limitations: no limitations General appearance: alert, obese Head exam: Present: atraumatic Eye exam: Present: normal appearance, PERRL ENT exam: Present: normal oropharynx Neck exam: Present: normal inspection Respiratory exam: Present: normal lung sounds bilaterally Cardiovascular Exam: Present: regular rate, normal rhythm GI/Abdominal exam: Present: soft. Absent: tenderness Extremities exam: Present: pedal edema, other (Bilateral edema. Right sided leg cellulitis with several ulcer. Right lateral foot with straight 3 ulcer and clear drainage with significant odor.) Neurological exam: Present: alert Psychiatric exam: Present: normal affect, normal mood Skin exam: Present: other (Cellulitis and skin ulcers) Course Vital Signs 03/07/19 14:12 Temperature 99.2 F Pulse Rate 123 H Respiratory 20 Rate Blood Pressure 115/64 O2 Sat by Pulse 94 L Oximetry - Reevaluation(s) Reevaluation #1: 03/07/19 16:[address] Patel, who will admit. EKG Findings - EKG Comments: EKG Findings:: Sinus tachycardia 110. HI 1 and 2. QRS 94. QT 344. QTC 465. Left axis. Left anterior fascicular block. No acute ST change. Critical Care Time Critical Care Time: Yes Total Critical Care Time: 33 Disposition Clinical Impression: Sepsis, Cellulitis, Foot ulcer Disposition: ADMITTED IP TO THIS HOSP Is patient prescribed a controlled substance at d/c from ED?: No Referrals: Sukumar Kaur MD [Primary Care Provider] - 1-2 days Decision Time: 16:22
[2019-03-07] MEDS ORDERED: NALOXONE 0.4 MG/ML 1 ML VIAL IV PRN (16:22)
--- NOTE | 2019-03-07 17:45 | XR ---
EXAMINATION TYPE: XR foot limited RT DATE OF EXAM: 03/07/2019 COMPARISON: NONE HISTORY: Foot swelling TECHNIQUE: 2 views FINDINGS: There is soft tissue swelling of the forefoot. Exam is limited by the bandages. I see no fo karina bone destruction. There is possible soft tissue ulceration at the base of the mid foot. There is moderate osteoarthritis at the first MP joint. There is plantar calcaneal spurring. IMPRESSION: Soft tissue swelling and deformity. No fracture. No definite sign of osteomyelitis.
[2019-03-07 17:58] LABS: Basophils # (A) 0.1 k/uL (0-0.2); Basophils % (A) 0 %; Eosinophils # (A) 0.5 k/uL (0-0.7); Eosinophils % (A) 3 %; HCT 37.6 % (39.0-53.0); HGB 12.9 gm/dL (13.0-17.5); Lymphocytes # (A) 1.2 k/uL (1.0-4.8); Lymphocytes % (A) 6 %; MCH 30.8 pg (25.0-35.0); MCHC 34.3 g/dL (31.0-37.0); MCV 89.7 fL (80.0-100.0); Mean Platelet Volume 6.6; Monocytes # (A) 1.3 k/uL (0-1.0); Monocytes % (A) 6 %; Neutrophils # (A) 16.7 k/uL (1.3-7.7); Neutrophils % (A) 83 %; Platelet Count 381 k/uL (150-450); Poikilocytosis Slight; RBC 4.19 m/uL (4.30-5.90); RDW 14.9 % (11.5-15.5); WBC 20.1 k/uL (3.8-10.6)
[2019-03-07 18:11] LABS: Partial Thromboplastin Time 28.3 sec (22.0-30.0)
[2019-03-07] MEDS ORDERED: HYDROcodone/APAP 5-325MG 1 EACH TAB PO STA (18:13)
[2019-03-07] MEDS ORDERED: PREGABALIN 75 MG CAP PO STA (18:13)
[2019-03-07] MEDS ORDERED: ACETAMINOPHEN TAB 325 MG TAB PO PRN (18:14)
[2019-03-07 18:15] LABS: ALT 14 U/L (21-72); AST 24 U/L (17-59); African American GFR (CKD) >90 (>60 ml/min/1.73 sqM); Alkaline Phosphatase 76 U/L (38-126); Anion Gap 8 mmol/L; Blood Urea Nitrogen 14 mg/dL (9-20); Calcium 8.5 mg/dL (8.4-10.2); Carbon Dioxide 35 mmol/L (22-30); Chloride 91 mmol/L (98-107); Glucose 178 mg/dL (74-99); Potassium 3.7 mmol/L (3.5-5.1); Sodium 134 mmol/L (137-145); Total Bilirubin 1.8 mg/dL (0.2-1.3); Total Protein 7.5 g/dL (6.3-8.2)
[2019-03-07] MEDS: SODIUM CHLORIDE 0.9% 1,000 ML IV SCH (18:20)
[2019-03-07] MEDS ORDERED: IPRATROPIUM-ALBUTEROL 3 ML NEB INHALATION PRN (18:21)
--- NOTE | 2019-03-07 18:25 | P.HPIM ---
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 Patient reports his lower extremity wounds that of continuously gotten worse over the last couple of months. Patient states that he is wheelchair-bound but is able to walk short distances with a walker. He has a nurse that comes over for wound care. His PCP is visiting physicians Dr. Kaur. Patient reports 8-9 out of 10 in severity right lower extremity pain along with chronic lower extremity swelling. Patient denies any headache, nausea or vomiting, fever or chills, cough, chest pain, shortness of breath, changes in urination or bowel habits. No changes in appetite or weight. No dizziness, numbness/weakness/tingling of the extremities. In the ED, patient had a pulse of 123. CBC showed a leukocytosis of 20.1 and normocytic anemia with hemoglobin of 12.9. CMP showed a sodium of 134, chloride of 91, bicarbonate of 35, glucose of 178. Lactic acid was negative. Total theron irubin was 1.8. Patient is admitted for infected wound in his right lower extremity and sepsis, infectious diseases consulted. Review of Systems Pertinent positives and negatives as discussed in HPI, a complete review of systems was performed and all other systems are negative. Past Medical History Past Medical History: Asthma, Coronary Artery Disease (CAD), Heart Failure, COPD, Diabetes Mellitus, Myocardial Infarction ([place]), Prostate Disorder, Skin Disorder, Sleep Apnea/CPAP/BIPAP Additional Past Medical History / Comment(s): Bilateral lower extremity ulcers, edema left lower legs, edema and "tumor" rt leg, diff with ambulation, Last Myocardial Infarction Date:: 1999 History of Any Multi-Drug Resistant Organisms: None Reported Past Surgical History: Heart Catheterization With Stent, Tonsillectomy Additional Past Surgical History / Comment(s): chest tube in for collapsed lung, one cardiac stent, Past Anesthesia/Blood Transfusion Reactions: No Reported Reaction Date of Last Stent Placement:: 1999 Past Psychological History: Anxiety Smoking Status: Former smoker Past Alcohol Use History: None Reported Past Drug Use History: None Reported - Past Family History Father Family Medical History: Unable to Obtain Mother Family Medical History: Unable to Obtain Sister(s) Family Medical History: Cancer Medications and Allergies Home Medications Medication Instructions Recorded Confirmed Type Dulaglutide [Trulicity] 1.5 mg SQ MO 11/11/18 03/07/19 History Ergocalciferol (Vitamin D2) 50,000 unit PO TUTH 03/07/19 03/07/19 History [Drisdol] Insulin Aspart [NovoLOG Flexpen] 20 units SQ TID 03/07/19 03/07/19 History SILVER sulfADIAZINE CREAM 1 applic TOPICAL DAILY 03/07/19 03/07/19 History [Silvadene Cream] hydrOXYzine HCL [Atarax] 50 - 100 mg PO Q6H PRN 03/07/19 03/07/19 History traMADol HCL [Ultram] 50 mg PO QID 03/07/19 03/07/19 History Allergies Allergy/AdvReac Type Severity Reaction Status Date / Time adhesive tape Allergy Rash/Hives Verified 03/07/19 16:58 Physical Exam Vitals: Vital Signs Temp Pulse Resp BP Pulse Ox 03/07/19 14:12 99.2 F 123 H 20 115/64 94 L Intake and Output 03/07/19 03/07/19 03/07/19 06:59 14:59 22:59 Other: Weight 149.685 kg General: [non toxic], [morbidly obese, no distress, eating sandwich], [appears at stated age] Derm: [warm], [dry] Head: [atraumatic], [normocephalic], [symmetric] Eyes: [EOMI], [no lid lag], [anicteric sclera] Mouth: [no lip lesion], [mucus membranes moist] Cardiovascular: [S1S2 reg], [tachycardia] Lungs: [CTA bilateral], [no rhonchi, no rales] , [no accessory muscle use] Abdominal: [soft], [ nontender to palpation], [obese], [no appreciable organomegaly] Ext: [no gross muscle atrophy], [2+ right greater than left lower extremity edema], [no contractures], [possible lipoma of the right thigh], [chronic venous stasis changes with erythema in the right lower extremity which is foul- smelling] Neuro: [ CN II-XI grossly intact], [no focal neuro deficits] Psych: [Alert], [oriented], [appropriate affect] Results CBC & Chem 7: 03/07/19 17:40 03/07/19 17:40 Labs: Abnormal Lab Results - Last 24 Hours (Table) 03/07/19 03/07/19 Range/Units 17:40 17:40 WBC 20.1 H (3.8-10.6) k/uL RBC 4.19 L (4.30-5.90) m/uL Hgb 12.9 L (13.0-17.5) gm/dL Hct 37.6 L (39.0-53.0) % Neutrophils # 16.7 H (1.3-7.7) k/uL Monocytes # 1.3 H (0-1.0) k/uL Sodium 134 L (137-145) mmol/L Chloride 91 L (98-107) mmol/L Carbon Dioxide 35 H (22-30) mmol/L Glucose 178 H (74-99) mg/dL Total Bilirubin 1.8 H (0.2-1.3) mg/dL ALT 14 L (21-72) U/L Albumin 3.0 L (3.5-5.0) g/dL Assessment and Plan Assessment: Assessment and Plan Sepsis likely related to right lower extremity cellulitis Diabetes mellitus with hyperglycemia Morbid obesity COPD Patient meets sepsis criteria. Pulse 123. Leukocytosis of 20.1. Positive source of infection. Lactic acid negative. Plans: Start vancomycin and Zosyn for broad-spectrum coverage. Tylenol as needed for fever. ID consultation. Pain control with [place], Dilaudid as needed. Telemetry monitoring. Follow ID consultation. Wound cultures. Blood cultures. [id number] glucose 178. Plans: NovoLog 20 units with meals. Insulin sliding scale. Regular Accu-Cheks. Hypoglycemic precautions. BMI 47.3. Plans: Structured weight loss program. Stable. Plans: DuoNeb as needed for shortness of breath and wheezing. [Patient is admitted for right lower extremity cellulitis and sepsis, started on broad-spectrum IV antibiotics with ID on consult.] DVT prophylaxis: [Heparin] Discussed with: [Patient] Anticipated discharge: [2-3 days] Anticipated discharge place: [[place]] A total of [45] minutes was spent on the care of this complex patient more than 50% of the time was spent in counseling and care coordination.
[2019-03-07 22:16] LABS: Glucose,Whole Blood 130 mg/dL (75-99)
[2019-03-07] MEDS: INSULIN ASPART (NovoLOG) 100 UNIT/ML VIAL SQ SCH (22:36)
[2019-03-07] MEDS: HEPARIN SODIUM,PORCINE 5,000 UNIT/ML 1 ML VIAL SQ SCH (22:40)
[2019-03-08] MEDS: PIPERACILLIN-TAZOBACTAM 3.375 GM in SODIUM CHLORIDE 0.9% 100 ML IVPB SCH ×3 (04:21→19:31)
[2019-03-08] MEDS: HYDROmorphone 1 MG/ML 1 ML SYRINGE IV PRN ×5 (04:21→22:16)
[2019-03-08] MEDS: SODIUM CHLORIDE 0.9% 1,000 ML IV SCH ×2 (06:01→21:02)
[2019-03-08 07:28] LABS: Glucose,Whole Blood 145 mg/dL (75-99)
[2019-03-08] MEDS: INSULIN ASPART (NovoLOG) 100 UNIT/ML VIAL SQ SCH ×7 (07:37→21:03)
[2019-03-08] MEDS: VANCOMYCIN 2,250 MG in SODIUM CHLORIDE 0.9% 500 ML 500 ML IVPB SCH ×2 (08:37→23:35)
[2019-03-08] MEDS: HEPARIN SODIUM,PORCINE 5,000 UNIT/ML 1 ML VIAL SQ SCH (08:53)
[2019-03-08 09:08] LABS: Basophils % (A) 0 %; Eosinophils # (A) 0.3 k/uL (0-0.7); Eosinophils % (A) 2 %; HCT 26.3 % (39.0-53.0); Lymphocytes % (A) 6 %; MCHC 31.4 g/dL (31.0-37.0); MCV 89.2 fL (80.0-100.0); Mean Platelet Volume 7.7; Monocytes # (A) 1.4 k/uL (0-1.0); Monocytes % (A) 8 %; Neutrophils # (A) 13.3 k/uL (1.3-7.7); Neutrophils % (A) 82 %; Platelet Count 438 k/uL (150-450); Poikilocytosis Slight; RBC 2.95 m/uL (4.30-5.90); RDW 14.8 % (11.5-15.5); WBC 16.1 k/uL (3.8-10.6)
[2019-03-08 09:16] LABS: Polychromasia Present
[2019-03-08 09:25] LABS: ALT 15 U/L (21-72); AST 27 U/L (17-59); African American GFR (CKD) >90 (>60 ml/min/1.73 sqM); Albumin 2.7 g/dL (3.5-5.0); Alkaline Phosphatase 75 U/L (38-126); Anion Gap 9 mmol/L; Blood Urea Nitrogen 14 mg/dL (9-20); Calcium 8.3 mg/dL (8.4-10.2); Carbon Dioxide 34 mmol/L (22-30); Chloride 96 mmol/L (98-107); Glucose 135 mg/dL (74-99); Potassium 3.1 mmol/L (3.5-5.1); Sodium 139 mmol/L (137-145); Total Bilirubin 1.4 mg/dL (0.2-1.3); Total Protein 6.7 g/dL (6.3-8.2)
[2019-03-08] MEDS ORDERED: POTASSIUM CHLORIDE 20 MEQ in WATER FOR INJECTION 1 100ML.BAG IVPB STA (11:47)
[2019-03-08 11:51] LABS: Glucose,Whole Blood 110 mg/dL (75-99)
--- NOTE | 2019-03-08 12:22 | P.CONS ---
History of Present Illness - Reason for Consult Consult date: 03/08/19 Leg wound, cellulitis, sepsis - History of Present Illness This is a 58-year-old male patient well known to ID service because of bilateral lower extremity venous stasis ulcerations and [facility] a [facility] period of time. Patient is currently under the care of Dr. Mansfield and sees him every 2 weeks however patient states he missed his last appointment due to transportation issues. He presented to [facility] emergency center due to concern of worsening pain to the right leg with increased swelling and drainage. He is followed at home by home care nurse also recommended that he come into the hospital for evaluation. Patient denies having any fevers. He states his appetite is okay. Regarding his blood sugars he states they usually run 120-150 but has no idea what his hemoglobin A1c is. He presented with a blood sugar of 178, albumin 3.0, white count 20.1, creatinine 0.92. He was afebrile. Wound culture and blood culture were obtained. Foot x-ray showed soft tissue swelling and deformity was no fracture. No definitive osteomyelitis. He was started on Zosyn and vancomycin and admitted to the [facility] floor. Hemoglobin A1c obtained on February 24 was 9.4. Review of Systems Constitutional: Reports fatigue, Reports weakness, Denies anorexia, Denies chills, Denies fever, Denies poor appetite, Denies weight loss Ears, nose, mouth and throat: Denies dental pain, Denies mouth pain, Denies nasal congestion, Denies nasal discharge, Denies vertigo Cardiovascular: Reports edema, Reports leg edema, Denies chest pain, Denies shortness of breath, Denies syncope Respiratory: Denies congestion, Denies cough, Denies cough with sputum, Denies dyspnea, Denies excessive sputum, Denies hemoptysis, Denies home oxygen, Denies wheezing Gastrointestinal: Denies abdominal pain, Denies loss of appetite, Denies nausea, Denies vomiting Genitourinary: Denies dysuria Musculoskeletal: Reports gait dysfunction, Reports muscle weakness Integumentary: Reports color changes, Reports wounds, Denies pruritus, Denies rash Neurological: Denies aphasia, Denies ataxia, Denies change in speech, Denies confusion, Denies seizures, Denies syncope Psychiatric: Denies anxiety, Denies depression Endocrine: Denies fatigue, Denies weight change Past Medical History Past Medical History: Asthma, Coronary Artery Disease (CAD), Heart Failure, 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, Diabetes Mellitus, Myocardial Infarction ([place]), Prostate Disorder, Skin Disorder, Sleep Apnea/CPAP/BIPAP Additional Past Medical History / Comment(s): Bilateral lower extremity ulcers, edema left lower legs, edema and "tumor" rt leg, diff with ambulation, Last Myocardial Infarction Date:: 1999 History of Any Multi-Drug Resistant Organisms: None Reported Past Surgical History: Heart Catheterization With Stent, Tonsillectomy Additional Past Surgical History / Comment(s): chest tube in for collapsed lung, one cardiac stent, Past Anesthesia/Blood Transfusion Reactions: No Reported Reaction Date of Last Stent Placement:: 1999 Past Psychological History: Anxiety Smoking Status: Former smoker Past Alcohol Use History: None Reported Additional Past Alcohol Use History / Comment(s): Patient was a smoker of 2 packs per day for 40 years and quit in 2017. He denies any marijuana or street drug use. He states he drinks alcohol socially. He utilizes walker to ambulate. He states he normally walks with a limp. He lives alone. There are no pets in the home. He denies any service or travel. 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 Past Drug Use History: None Reported - Past Family History Father Family Medical History: Unable to Obtain Mother Family Medical History: Unable to Obtain Sister(s) Family Medical History: Cancer Medications and Allergies Home Medications Medication Instructions Recorded Confirmed Type Dulaglutide [Trulicity] 1.5 mg SQ MO 11/11/18 03/07/19 History Ergocalciferol (Vitamin D2) 50,000 unit PO TUTH 03/07/19 03/07/19 History [Drisdol] Insulin Aspart [NovoLOG Flexpen] 20 units SQ TID 03/07/19 03/07/19 History SILVER sulfADIAZINE CREAM 1 applic TOPICAL DAILY 03/07/19 03/07/19 History [Silvadene Cream] hydrOXYzine HCL [Atarax] 50 - 100 mg PO Q6H PRN 03/07/19 03/07/19 History traMADol HCL [Ultram] 50 mg PO QID 03/07/19 03/07/19 History Allergies Allergy/AdvReac Type Severity Reaction Status Date / Time adhesive tape Allergy Rash/Hives Verified 03/07/19 16:58 Physical Exam Vitals: Vital Signs Temp Pulse Pulse Resp BP BP Pulse Ox 03/08/19 05:00 98.9 F 114 H 22 134/63 92 L 03/08/19 00:00 107 H 18 03/07/19 22:27 96.6 F L 107 H 18 126/59 96 03/07/19 21:24 98.3 F 109 H 16 120/56 95 03/07/19 20:12 107 H 16 105/55 95 03/07/19 18:48 18 102/59 91 L 03/07/19 14:12 99.2 F 123 H 20 115/64 94 L Intake and Output 03/07/19 03/08/19 03/08/19 22:59 06:59 14:59 Intake Total 870 Balance 870 Intake: Intake, IV Titration 450 Amount Sodium Chloride 0.9% 1, 450 000 ml @ 75 mls/hr IV . [id number] MICHAEL Rx#:[id number] Oral 420 Other: Voiding Method Urinal Urinal # Voids 1 Gen: This is a morbidly obese 57-year-old male. Patient is resting in bed. He appears to be in no acute distress. HEENT: Head is atraumatic, normocephalic. Pupils equal, round. Sclerae is a nicteric. Conjunctiva pink. Mucous members of the mouth are moist. Patient is edentulous. No thrush noted. NECK: Supple. No JVD. No lymphadenopathy. No thyromegaly. LUNGS: Clear to auscultation. No wheezes or rhonchi. No intercostal retractions. HEART: Regular rate and rhythm. Systolic murmur. ABDOMEN: Soft. Bowel sounds are present. No masses. No tenderness. Mild redness under abdominal folds. Reducible soft umbilical hernia. EXTREMITIES: Right lower extremity has dark chronic color changes to the lower leg. Dressing is in place which was not removed for evaluation. Patient is al so noted to have significant edema to the entire right leg and color changes to the posterior area that was not clearly visualized due to patient positioning. Dorsalis pedis is 1+ bilaterally. Wound evaluation deferred to Dr. Shelton. NEUROLOGICAL: Patient is awake, alert and oriented x3. Results Results: Laboratory Results WBC 16.1 k/uL (3.8-10.6) H 03/08/19 07:12 RBC 2.95 m/uL (4.30-5.90) L 03/08/19 07:12 Hgb 8.3 gm/dL (13.0-17.5) L D 03/08/19 07:12 Hct 26.3 % (39.0-53.0) L 03/08/19 07:12 MCV 89.2 fL (80.0-100.0) 03/08/19 07:12 MCH 28.0 pg (25.0-35.0) 03/08/19 07:12 MCHC 31.4 g/dL (31.0-37.0) 03/08/19 07:12 RDW 14.8 % (11.5-15.5) 03/08/19 07:12 Plt Count 438 k/uL (150-450) 03/08/19 07:12 Neutrophils % 82 % 03/08/19 07:12 Lymphocytes % 6 % 03/08/19 07:12 Monocytes % 8 % 03/08/19 07:12 Eosinophils % 2 % 03/08/19 07:12 Basophils % 0 % 03/08/19 07:12 Neutrophils # 13.3 k/uL (1.3-7.7) H 03/08/19 07:12 Lymphocytes # 1.0 k/uL (1.0-4.8) 03/08/19 07:12 Monocytes # 1.4 k/uL (0-1.0) H 03/08/19 07:12 Eosinophils # 0.3 k/uL (0-0.7) 03/08/19 07:12 Basophils # 0.0 k/uL (0-0.2) 03/08/19 07:12 Manual Slide Review Performed 03/08/19 07:12 Polychromasia Present 03/08/19 07:12 Poikilocytosis Slight 03/08/19 07:12 PT 11.0 sec (9.0-12.0) 03/07/19 17:40 INR 1.0 (<1.2) 03/07/19 17:40 APTT 28.3 sec (22.0-30.0) 03/07/19 17:40 Sodium 139 mmol/L (137-145) 03/08/19 07:12 Potassium 3.1 mmol/L (3.5-5.1) L 03/08/19 07:12 Chloride 96 mmol/L (98-107) L 03/08/19 07:12 Carbon Dioxide 34 mmol/L (22-30) H 03/08/19 07:12 Anion Gap 9 mmol/L 03/08/19 07:12 BUN 14 mg/dL (9-20) 03/08/19 07:12 Creatinine 0.89 mg/dL (0.66-1.25) 03/08/19 07:12 Est GFR (CKD-EPI)AfAm >90 (>60 ml/min/1.73 sqM) 03/08/19 07:12 Est GFR (CKD-EPI)NonAf >90 (>60 ml/min/1.73 sqM) 03/08/19 07:12 Glucose 135 mg/dL (74-99) H 03/08/19 07:12 POC Glucose (mg/dL) 110 mg/dL (75-99) H 03/08/19 11:50 POC Glu Sintering Press Operator ID Gracie Cordova 03/08/19 11:50 Plasma Lactic Acid [place] 2.0 mmol/L (0.7-2.0) 03/07/19 17:40 Calcium 8.3 mg/dL (8.4-10.2) L 03/08/19 07:12 Total Bilirubin 1.4 mg/dL (0.2-1.3) H 03/08/19 07:12 AST 27 U/L (17-59) 03/08/19 07:12 ALT 15 U/L (21-72) L 03/08/19 07:12 Alkaline Phosphatase 75 U/L (38-126) 03/08/19 07:12 Total Protein 6.7 g/dL (6.3-8.2) 03/08/19 07:12 Albumin 2.7 g/dL (3.5-5.0) L 03/08/19 07:12 CBC & Chem 7: 03/08/19 07:12 03/08/19 07:12 Labs: Abnormal Lab Results - Last 24 Hours (Table) 03/07/19 03/07/19 03/07/19 Range/Units 17:40 17:40 22:14 WBC 20.1 H (3.8-10.6) k/uL RBC 4.19 L (4.30-5.90) m/uL Hgb 12.9 L (13.0-17.5) gm/dL Hct 37.6 L (39.0-53.0) % Neutrophils # 16.7 H (1.3-7.7) k/uL Monocytes # 1.3 H (0-1.0) k/uL Sodium 134 L (137-145) mmol/L Chloride 91 L (98-107) mmol/L Carbon Dioxide 35 H (22-30) mmol/L Glucose 178 H (74-99) mg/dL POC Glucose (mg/dL) 130 H (75-99) mg/dL Total Bilirubin 1.8 H (0.2-1.3) mg/dL ALT 14 L (21-72) U/L Albumin 3.0 L (3.5-5.0) g/dL 03/08/19 03/08/19 Range/Units 07:12 07:26 WBC 16.1 H (3.8-10.6) k/uL RBC 2.95 L (4.30-5.90) m/uL Hgb 8.3 L D (13.0-17.5) gm/dL Hct 26.3 L (39.0-53.0) % Neutrophils # (1.3-7.7) k/uL Monocytes # (0-1.0) k/uL Sodium (137-145) mmol/L Chloride (98-107) mmol/L Carbon Dioxide (22-30) mmol/L Glucose (74-99) mg/dL POC Glucose (mg/dL) 145 H (75-99) mg/dL Total Bilirubin (0.2-1.3) mg/dL ALT (21-72) U/L Albumin (3.5-5.0) g/dL Microbiology - Last 24 Hours (Table) 03/07/19 18:51 Gram Stain - Preliminary Foot - Right Wound Culture - Preliminary Assessment and Plan Plan: This is a 58-year-old male with morbid obesity who presents to the hospital with chronic wounds to the right lower extremity under the care of Dr. Mansfield at the wound healing Center. Patient presents with significant ulcers and sepsis with leukocytosis and tachycardia. Patient is currently on IV antibiotics in the form of Zosyn and vancomycin. A blood culture and wound culture in progress. Wound care will be addressed. Continue supportive care. Further recommendations as patient progresses. The above dictated assessment and findings were discussed with Dr. Shelton. The impression and plan of care have been directed as dictated. Harper Brantley nurse practitioner acting as scribe for Dr. Shelton.
[2019-03-08] MEDS: POTASSIUM CHLORIDE 10 MEQ in WATER FOR INJECTION 1 100ML.BAG IV SCH ×2 (13:17→14:45)
[2019-03-08] MEDS ORDERED: POTASSIUM CHLORIDE ER 20 MEQ TAB.ER PO ONE (14:00)
[2019-03-08] MEDS ORDERED: POTASSIUM BICARBONATE/CIT AC 20 MEQ TABLET.EFF PO ONE (14:00)
[2019-03-08 15:07] LABS: HGB 12.6 gm/dL (13.0-17.5)
[2019-03-08 17:14] LABS: Glucose,Whole Blood 116 mg/dL (75-99)
--- NOTE | 2019-03-08 20:17 | P.PN ---
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 In the ER he underwent an extensive evaluation. On arrival he was found to be tachycardic with a pulsatile 123. Initial laboratory analysis showed an elevated white blood cell count 20.1, hemoglobin 12.9, carbon dioxide of 35, sodium 134, glucose of 178, and total bilirubin of 1.8. He is also found to have redness and excoriation to the right lower extremity. He was started on vancomycin and Zosyn. He is admitted for further recommendations. Infectious disease was consulted. Patient seen and examined at bedside. He continues to have pain in his right lower extremity. He denies any chest pain, shortness of breath, nausea, or vomiting. He denies any abdominal pain. He sees visiting physicians and is s een at the wound care clinic. Objective - Vital Signs Vital signs: Vital Signs Temp 98.1 F 03/08/19 15:30 Pulse 95 03/08/19 15:30 Resp 16 03/08/19 15:30 BP 126/59 03/08/19 15:30 Pulse Ox 92 L 03/08/19 15:30 Intake & Output 03/08/19 03/08/19 03/09/19 06:59 18:59 06:59 Intake Total 870 1000 Balance 870 1000 Intake: Intake, IV Titration 450 Amount Sodium Chloride 0.9% 1, 450 000 ml @ 75 mls/hr IV . [id number] [facility] Rx#:[id number] Oral 420 1000 Other: Voiding Method Urinal Urinal # Voids 1 1 - Exam General: Ill-appearing, no distress, appears older than stated age Derm: Right lower extremity with violaceous red appearance noted to have edema of the entire right lower extremity, dressing in place over right lower extremity, excoriation and irritation noted to the posterior and inner thigh area of right lower extremity , dry Head: atraumatic, normocephalic, symmetric Eyes: EOMI, no lid lag, anicteric sclera Mouth: no lip lesion, mucus membranes moist Cardiovascular: S1S2 reg, no murmur, positive posterior tibial pulse bilateral, Lungs: Decreased breath sounds bilateral, no rhonchi, no rales , no accessory muscle use Abdominal: soft, nontender to palpation, no guarding, no appreciable organome josh Ext: no gross muscle atrophy, no edema, no contractures Neuro: CN II-XI grossly intact, no focal neuro deficits Psych: Alert, oriented, appropriate affect - Labs CBC & Chem 7: 03/08/19 07:12 03/08/19 07:12 Labs: Abnormal Lab Results - Last 24 Hours (Table) 03/07/19 03/08/19 03/08/19 Range/Units 22:14 07:12 07:12 WBC 16.1 H (3.8-10.6) k/uL RBC 2.95 L (4.30-5.90) m/uL Hgb 12.6 L (13.0-17.5) gm/dL Hct 26.3 L (39.0-53.0) % Neutrophils # 13.3 H (1.3-7.7) k/uL Monocytes # 1.4 H (0-1.0) k/uL Potassium 3.1 L (3.5-5.1) mmol/L Chloride 96 L (98-107) mmol/L Carbon Dioxide 34 H (22-30) mmol/L Glucose 135 H (74-99) mg/dL POC Glucose (mg/dL) 130 H (75-99) mg/dL Calcium 8.3 L (8.4-10.2) mg/dL Total Bilirubin 1.4 H (0.2-1.3) mg/dL ALT 15 L (21-72) U/L Albumin 2.7 L (3.5-5.0) g/dL 03/08/19 03/08/19 03/08/19 Range/Units 07:26 11:50 17:12 WBC (3.8-10.6) k/uL RBC (4.30-5.90) m/uL Hgb (13.0-17.5) gm/dL Hct (39.0-53.0) % Neutrophils # (1.3-7.7) k/uL Monocytes # (0-1.0) k/uL Potassium (3.5-5.1) mmol/L Chloride (98-107) mmol/L Carbon Dioxide (22-30) mmol/L Glucose (74-99) mg/dL POC Glucose (mg/dL) 145 H 110 H 116 H (75-99) mg/dL Calcium (8.4-10.2) mg/dL Total Bilirubin (0.2-1.3) mg/dL ALT (21-72) U/L Albumin (3.5-5.0) g/dL Microbiology - Last 24 Hours (Table) 03/07/19 18:51 Gram Stain - Preliminary Foot - Right Wound Culture - Preliminary Gram Neg Bacilli Assessment and Plan Assessment: Right lower extremity cellulitis with infection of ulcers and sepsis -ID recommendations -Continue with vancomycin and Zosyn -Wound care recommendations per Dr. Shelton -Elevate and wrap legs -Sees Dr. Mansfield at the wound care center Diabetes mellitus type 2 with hyperglycemia resolved -Treat with the on hold -NovoLog fixed and sliding scale insulin -Check hemoglobin A1c Debility -Patient is typically wheelchair bound and only walks short distances walker -Has been having more difficulty ambulating with his walker -PT/OT -Fall precautions -Likely will need subacute rehab on discharge Hypokalemia -Replace potassium -Repeat in a.m. along with magnesium Morbid obesity with BMI 47.3 -Structured outpatient weight loss Coronary artery disease -Not chronically on antiplatelet agents or beta blockers -Continue outpatient follow-up hypontemia, resoled Chronic: Asthma, obstructive sleep apnea DVT prophylaxis: heparin Discussed with: Patient, nursing, ID Anticipated discharge: 1- days Anticipated discharge place: home A total of 35 minutes was spent on the care of this complex patient more than 50% of the time was spent in counseling and care coordination.
[2019-03-08 20:48] LABS: Glucose,Whole Blood 92 mg/dL (75-99)
[2019-03-08] MEDS: FUROSEMIDE 10 MG/ML 4 ML VIAL IV SCH (21:15)
--- NOTE | 2019-03-08 21:32 | P.CON ---
Consult Note - . Consult date: 03/08/19 Assessment/Plan:: This is a 58-year-old male patient well known to ID service because of bilateral lower extremity venous stasis ulcerations and [facility] a long period of time. Patient is currently under the care of Dr. Mansfield and sees him every 2 weeks however patient states he missed his last appointment due to transportation issues. He presented to [facility] emergency center due to concern of worsening pain to the right leg with increased swelling and drainage. He is followed at home by home care nurse also recommended that he come into the hospital for evaluation. Patient denies having any fevers. He states his appetite is okay. Regarding his blood sugars he states they usually run 120-150 but has no idea what his hemoglobin A1c is. He presented with a blood sugar of 178, albumin 3.0, white count 20.1, creatinine 0.92. He was afebrile. Wound culture and blood culture were obtained. Foot x-ray showed soft tissue swelling and deformity was no fracture. No definitive osteomyelitis. He was started on Zosyn and vancomycin and admitted to the Medr floor. Hemoglobin A1c obtained on February 24 was 9.4. Please see the consult note is dictated by nurse practitioner Mrs. Harper Brantley. Patient relates that he is just miserable and with his markedly decreasing status is what they did finally come to hospital. He has not been able to care for his right lower extremity, the edema has worsened greatly and he is just not feeling well. The patient is having difficulty with urination and with his obesity, very swollen right leg at the thigh through the genital, in the severe amount of fat in the prepubertal fat pad, has great difficulty and urinates into a trash can with the urine running off of the right leg. Local wound care will be applied to the ulceration of the right lower extremity tisha while here in hospital, to absorb drainage ABD pads and then the adult briefs can be utilized which will help observe the large amount of drainage The case has been discussed with the primary service and they agreed a Rodriguez catheter may be placed. This will hopefully allow some drying of the chronic macerated tissue on the right thigh to allow this to heal. We'll also hopefully then allow some healing of the right lower leg. Lasix will be added with his hypokalemia will recheck potassium as well as a magnesium level. Supplement as needed. Hopefully with diuresis, be some improvement of his significant shortness of breath and massive lower extremity edema. Antibiotic therapy with vancomycin and Zosyn is being utilized for now until his further culture data. The patient elevate the limb as much as he can to help with the chronic edema which is a mixture of venous stasis and chronic severe lymphedema. Discussions about his CODE STATUS are started and he will talk to his daughter about what his plans should be. Specifically addressing long-term issues such as chronic ventilatory status. He relates he liked his have his right leg amputated if we'll let him live longer. The patient is willing to go to rehab after his hospital stay to have some improvement. I agree with the Evaluation, assessment and plan as dictated by nurse practitioner Mrs. Harper Brantley.
[2019-03-08] MEDS: HYDROcodone/APAP 5-325MG 1 EACH TAB PO PRN (22:17)
[2019-03-08 22:50] LABS: Magnesium 2.3 mg/dL (1.6-2.3); Potassium 3.3 mmol/L (3.5-5.1)
[2019-03-09] MEDS: HEPARIN SODIUM,PORCINE 5,000 UNIT/ML 1 ML VIAL SQ SCH ×3 (00:07→15:26)
[2019-03-09] MEDS: HYDROmorphone 1 MG/ML 1 ML SYRINGE IV PRN ×5 (01:09→21:21)
[2019-03-09] MEDS: PIPERACILLIN-TAZOBACTAM 3.375 GM in SODIUM CHLORIDE 0.9% 100 ML IVPB SCH ×3 (04:05→21:22)
[2019-03-09 05:19] LABS: Hemoglobin A1C 5.4 % (4.0-6.0)
[2019-03-09 06:56] LABS: Glucose,Whole Blood 95 mg/dL (75-99)
[2019-03-09] MEDS: INSULIN ASPART (NovoLOG) 100 UNIT/ML VIAL SQ SCH ×6 (07:21→16:54)
[2019-03-09] MEDS: HYDROcodone/APAP 5-325MG 1 EACH TAB PO PRN (07:55)
[2019-03-09] MEDS: FUROSEMIDE 10 MG/ML 4 ML VIAL IV SCH ×2 (07:56→21:21)
[2019-03-09 09:18] LABS: HCT 36.6 % (39.0-53.0); HGB 12.5 gm/dL (13.0-17.5); MCH 30.9 pg (25.0-35.0); MCV 90.7 fL (80.0-100.0); Platelet Count 396 k/uL (150-450); Poikilocytosis Slight; RBC 4.04 m/uL (4.30-5.90); RDW 14.9 % (11.5-15.5); WBC 9.9 k/uL (3.8-10.6)
[2019-03-09 09:36] LABS: African American GFR (CKD) >90 (>60 ml/min/1.73 sqM); Anion Gap 6 mmol/L; Blood Urea Nitrogen 11 mg/dL (9-20); Calcium 8.2 mg/dL (8.4-10.2); Carbon Dioxide 37 mmol/L (22-30); Chloride 96 mmol/L (98-107); Glucose 100 mg/dL (74-99); Potassium 3.2 mmol/L (3.5-5.1); Sodium 139 mmol/L (137-145)
[2019-03-09 11:17] LABS: Glucose,Whole Blood 133 mg/dL (75-99)
[2019-03-09] MEDS: PREGABALIN 75 MG CAP PO SCH ×2 (12:22→15:39)
[2019-03-09] MEDS: HYDROcodone/APAP 10-325MG 1 EACH TAB PO PRN ×2 (12:22→18:24)
[2019-03-09] MEDS: SODIUM CHLORIDE 0.9% 1,000 ML IV SCH (12:43)
[2019-03-09 14:44] VITALS: BMI 47.3
[2019-03-09] MEDS ORDERED: POTASSIUM BICARBONATE/CIT AC 20 MEQ TABLET.EFF PO ONE (16:21)
--- NOTE | 2019-03-09 16:24 | P.PN ---
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 In the ER he underwent an extensive evaluation. On arrival he was found to be tachycardic with a pulsatile 123. Initial laboratory analysis showed an elevated white blood cell count 20.1, hemoglobin 12.9, carbon dioxide of 35, sodium 134, glucose of 178, and total bilirubin of 1.8. He is also found to have redness and excoriation to the right lower extremity. He was started on vancomycin and Zosyn. He was admitted for further recommendations. Infectious disease was consulted who agreed with vancomycin and Zosyn. They also added Lasix to help with lower extremity edema. Rodriguez catheter was ordered by infectious disease as patient has been urinating on himself letting it spilled on his right leg and into the trash can is likely leading to his macerated skin on the right leg. Patient seen and examined at bedside. Complains of pain in his right lower extremity and everywhere else including his back. States that he normally takes [place] 10 as well as Lyrica 75 3 times a day which have not been ordered. He den ies any shortness of breath or chest discomfort. He is much more comfortable to Rodriguez catheter in place. He denies any diarrhea. Objective - Vital Signs Vital signs: Vital Signs Temp 98.1 F 03/09/19 12:19 Pulse 85 03/09/19 12:19 Resp 17 03/09/19 12:19 BP 111/58 03/09/19 12:19 Pulse Ox 95 03/09/19 12:19 Intake & Output 03/08/19 03/09/19 03/09/19 18:59 06:59 18:59 Intake Total 1000 1410 Output Total 1100 Balance 1000 310 Weight 149.685 kg Intake: Intake, IV Titration 820 Amount Piperacillin-Tazobactam 3 200 .375 gm In Sodium Chloride 0.9% 100 ml @ 25 mls/hr IVPB Q8H [facility] Rx#: [id number] Sodium Chloride 0.9% 1, 120 000 ml @ 75 mls/hr IV . [id number] [facility] Rx#:[id number] Vancomycin 2,250 mg In 500 Sodium Chloride 0.9% 500 ml 500 ml @ 167 mls/hr IVPB Q16H [facility] Rx#: [id number] Oral 1000 590 Output: Urine 1100 Other: Voiding Method Urinal Urinal Indwelling Catheter # Voids 1 1 - Exam General: non toxic, no distress, appears older than stated age Derm: Right lower extremity with violaceous red appearance noted to have edema of the entire right lower extremity, dressing in place over right lower extremi ty, excoriation and irritation noted to the posterior and inner thigh area of right lower extremity- improving , dry Head: atraumatic, normocephalic, symmetric Eyes: EOMI, no lid lag, anicteric sclera Mouth: no lip lesion, mucus membranes moist Cardiovascular: S1S2 reg, no murmur, decreased posterior tibial pulse bilateral Lungs: Decreased breath sounds bilateral, no rhonchi, no rales , no accessory muscle use Abdominal: soft, nontender to palpation, no guarding, no appreciable organomegaly Ext: no gross muscle atrophy, lymphedema right lower extremity, no contractures Neuro: CN II-XI grossly intact, no focal neuro deficits Psych: Alert, oriented, appropriate affect - Labs CBC & Chem 7: 03/09/19 08:29 03/09/19 08:29 Labs: Abnormal Lab Results - Last 24 Hours (Table) 03/08/19 03/08/19 03/09/19 Range/Units 17:12 21:58 08:29 RBC 4.04 L (4.30-5.90) m/uL Hgb 12.5 L (13.0-17.5) gm/dL Hct 36.6 L (39.0-53.0) % Potassium 3.3 L (3.5-5.1) mmol/L Chloride (98-107) mmol/L Carbon Dioxide (22-30) mmol/L Glucose (74-99) mg/dL POC Glucose (mg/dL) 116 H (75-99) mg/dL Calcium (8.4-10.2) mg/dL 03/09/19 03/09/19 Range/Units 08:29 11:16 RBC (4.30-5.90) m/uL Hgb (13.0-17.5) gm/dL Hct (39.0-53.0) % Potassium 3.2 L (3.5-5.1) mmol/L Chloride 96 L (98-107) mmol/L Carbon Dioxide 37 H (22-30) mmol/L Glucose 100 H (74-99) mg/dL POC Glucose (mg/dL) 133 H (75-99) mg/dL Calcium 8.2 L (8.4-10.2) mg/dL Microbiology - Last 24 Hours (Table) 03/07/19 17:10 Blood Culture - Preliminary Blood No Growth after 24 hours 03/07/19 18:51 Gram Stain - Preliminary Foot - Right Wound Culture - Preliminary Gram Neg Bacilli Assessment and Plan Assessment: Right lower extremity cellulitis with infection of ulcers and sepsis and lymphedema -ID recommendations appreciated -Continue with vancomycin and Zosyn -Wound care recommendations per Dr. Shelton -Elevate and wrap legs -Sees Dr. Mansfield at the wound care center - on lasix Diabetes mellitus type 2 with hyperglycemia resolved -Treat with the on hold -NovoLog fixed and sliding scale insulin -Check hemoglobin A1c Debility -Patient is typically wheelchair bound and only walks short distances walker -Has been having more difficulty ambulating with his walker -PT/OT -Fall precautions -Likely will need subacute rehab on discharge Acute on chronic pain -Resume home [place] and Lyrica -Continue Dilaudid for breakthrough pain -Heat pack as needed Hypokalemia -Replace potassium -Repeat in a.m. along with magnesium Morbid obesity with BMI 47.3 -Structured outpatient weight loss Coronary artery disease -Not chronically on antiplatelet agents or beta blockers -Continue outpatient follow-up hypontemia, resoled Chronic: Asthma, obstructive sleep apnea DVT prophylaxis: heparin Discussed with: Patient, nursing Anticipated discharge: 1-[address]: SNF A total of 35 minutes was spent on the care of this complex patient more than 50% of the time was spent in counseling and care coordination.
[2019-03-09] MEDS: VANCOMYCIN 2,250 MG in SODIUM CHLORIDE 0.9% 500 ML 500 ML IVPB SCH (16:48)
[2019-03-09 16:49] LABS: Glucose,Whole Blood 100 mg/dL (75-99)
[2019-03-09] MEDS: POTASSIUM CHLORIDE ER 20 MEQ TAB.ER PO SCH ×2 (18:05→21:21)
[2019-03-09 20:15] LABS: Glucose,Whole Blood 116 mg/dL (75-99)
--- NOTE | 2019-03-09 22:32 | P.PN ---
Subjective Progress Note Date: 03/09/19 This is a 58-year-old male patient well known to ID service because of bilateral lower extremity venous stasis ulcerations [facility] a [facility] period of time. Patient is currently under the care of Dr. Mansfield and sees him every 2 weeks however patient states he missed his last appointment due to transportation issues. He presented to [facility] emergency center due to concern of worsening pain to the right leg with increased swelling and drainage. He is followed at home by home care nurse also recommended that he come into the hospital for evaluation. Patient denies having any fevers. He states his appetite is okay. Regarding his blood sugars he states they usually run 120-150 but has no idea what his hemoglobin A1c is. He presented with a blood sugar of 178, albumin 3.0, white count 20.1, creatinine 0.92. He was afebrile. Wound culture and blood culture were obtained. Foot x-ray showed soft tissue swelling and deformity was no fracture. No definitive osteomyelitis. He was started on Zosyn and vancomycin and [facility]. Hemoglobin A1c obtained on February 24 was 9.4. 03/09/2018 the patient is slightly better today. Rodriguez catheters been placed which is allowed us to be improvement of his urinary system. The right leg is no longer being drenched and urine initially some improvement of the dense maikel thema. He does not feel very well overall due to his chronic pain but this seems to be improving. Objective - Vital Signs Vital signs: Vital Signs Temp 97.1 F L 03/09/19 21:00 Pulse 88 03/09/19 21:00 Resp 16 03/09/19 21:00 BP 115/58 03/09/19 21:00 Pulse Ox 92 L 03/09/19 21:00 Intake & Output 03/09/19 03/09/19 03/10/19 06:59 18:59 06:59 Intake Total 1410 590 Output Total 1100 Balance 310 590 Weight 149.685 kg Intake: Intake, IV Titration 820 Amount Piperacillin-Tazobactam 3 200 .375 gm In Sodium Chloride 0.9% 100 ml @ 25 mls/hr IVPB Q8H [facility] Rx#: [id number] Sodium Chloride 0.9% 1, 120 000 ml @ 75 mls/hr IV . [id number] [facility] Rx#:[id number] Vancomycin 2,250 mg In 500 Sodium Chloride 0.9% 500 ml 500 ml @ 167 mls/hr IVPB Q16H [facility] Rx#: [id number] Oral 590 590 Output: Urine 1100 Other: Voiding Method Urinal Indwelling Catheter # Voids 1 - Exam Gen: This is a morbidly obese 57-year-old male. Patient is resting in bed. He appears to be in no acute distress. HEENT: Head is atraumatic, normocephalic. Pupils equal, round. Sclerae is anicteric. Conjunctiva pink. Mucous members of the mouth are moist. Patient is edentulous. No thrush noted. NECK: Supple. No JVD. No lymphadenopathy. No thyromegaly. LUNGS: Clear to auscultation. No wheezes or rhonchi. No intercostal retractions. HEART: Regular rate and rhythm. Systolic murmur. ABDOMEN: Soft. Bowel sounds are present. No masses. No tenderness. Mild redness under abdominal folds. Reducible soft umbilical hernia. EXTREMITIES: Right lower extremity has dark chronic color changes to the lower leg. Dressing is in place which was not removed for evaluation. Patient is also noted to have significant edema to the entire right leg and color changes to the posterior area has evidence of the full-thickness ulceration Dorsalis pedis is 1+ bilaterally. As noted there is massive lymphedema and lipedema of the right lower extremity NEUROLOGICAL: Patient is awake, alert and oriented x3. - Labs CBC & Chem 7: 03/09/19 08:29 03/09/19 08:29 Labs: Abnormal Lab Results - Last 24 Hours (Table) 03/08/19 03/09/19 03/09/19 Range/Units 21:58 08:29 08:29 RBC 4.04 L (4.30-5.90) m/uL Hgb 12.5 L (13.0-17.5) gm/dL Hct 36.6 L (39.0-53.0) % Potassium 3.3 L 3.2 L (3.5-5.1) mmol/L Chloride 96 L (98-107) mmol/L Carbon Dioxide 37 H (22-30) mmol/L Glucose 100 H (74-99) mg/dL POC Glucose (mg/dL) (75-99) mg/dL Calcium 8.2 L (8.4-10.2) mg/dL 03/09/19 03/09/19 03/09/19 Range/Units 11:16 16:47 20:13 RBC (4.30-5.90) m/uL Hgb (13.0-17.5) gm/dL Hct (39.0-53.0) % Potassium (3.5-5.1) mmol/L Chloride (98-107) mmol/L Carbon Dioxide (22-30) mmol/L Glucose (74-99) mg/dL POC Glucose (mg/dL) 133 H 100 H 116 H (75-99) mg/dL Calcium (8.4-10.2) mg/dL Microbiology - Last 24 Hours (Table) 03/07/19 18:51 Gram Stain - Preliminary Foot - Right Wound Culture - Preliminary Proteus vulgaris 03/07/19 17:10 Blood Culture - Preliminary Blood No Growth after 48 hours Laboratory Results WBC 9.9 k/uL (3.8-10.6) 03/09/19 08:29 RBC 4.04 m/uL (4.30-5.90) L 03/09/19 08:29 Hgb 12.5 gm/dL (13.0-17.5) L 03/09/19 08:29 Hct 36.6 % (39.0-53.0) L 03/09/19 08:29 MCV 90.7 fL (80.0-100.0) 03/09/19 08:29 MCH 30.9 pg (25.0-35.0) 03/09/19 08:29 MCHC 34.0 g/dL (31.0-37.0) 03/09/19 08:29 RDW 14.9 % (11.5-15.5) 03/09/19 08:29 Plt Count 396 k/uL (150-450) 03/09/19 08:29 Neutrophils % 82 % 03/08/19 07:12 Lymphocytes % 6 % 03/08/19 07:12 Monocytes % 8 % 03/08/19 07:12 Eosinophils % 2 % 03/08/19 07:12 Basophils % 0 % 03/08/19 07:12 Neutrophils # 13.3 k/uL (1.3-7.7) H 03/08/19 07:12 Lymphocytes # 1.0 k/uL (1.0-4.8) 03/08/19 07:12 Monocytes # 1.4 k/uL (0-1.0) H 03/08/19 07:12 Eosinophils # 0.3 k/uL (0-0.7) 03/08/19 07:12 Basophils # 0.0 k/uL (0-0.2) 03/08/19 07:12 Manual Slide Review Performed 03/08/19 07:12 Polychromasia Present 03/08/19 07:12 Poikilocytosis Slight 03/09/19 08:29 PT 11.0 sec (9.0-12.0) 03/07/19 17:40 INR 1.0 (<1.2) 03/07/19 17:40 APTT 28.3 sec (22.0-30.0) 03/07/19 17:40 Sodium 139 mmol/L (137-145) 03/09/19 08:29 Potassium 3.2 mmol/L (3.5-5.1) L 03/09/19 08:29 Chloride 96 mmol/L (98-107) L 03/09/19 08:29 Carbon Dioxide 37 mmol/L (22-30) H 03/09/19 08:29 Anion Gap 6 mmol/L 03/09/19 08:29 BUN 11 mg/dL (9-20) 03/09/19 08:29 Creatinine 0.89 mg/dL (0.66-1.25) 03/09/19 08:29 Est GFR (CKD-EPI)AfAm >90 (>60 ml/min/1.73 sqM) 03/09/19 08:29 Est GFR (CKD-EPI)NonAf >90 (>60 ml/min/1.73 sqM) 03/09/19 08:29 Glucose 100 mg/dL (74-99) H 03/09/19 08:29 POC Glucose (mg/dL) 116 mg/dL (75-99) H 03/09/19 20:13 POC Glu Appliance Installer SAGAR Desiree Celestin 03/09/19 20:[address] Glu mg/dL 108 03/08/19 07:17 Hemoglobin A1c 5.4 % (4.0-6.0) 03/08/19 07:17 Plasma Lactic Acid Osiel 2.0 mmol/L (0.7-2.0) 03/07/19 17:40 Calcium 8.2 mg/dL (8.4-10.2) L 03/09/19 08:29 Magnesium 2.3 mg/dL (1.6-2.3) 03/08/19 21:58 Total Bilirubin 1.4 mg/dL (0.2-1.3) H 03/08/19 07:12 AST 27 U/L (17-59) 03/08/19 07:12 ALT 15 U/L (21-72) L 03/08/19 07:12 Alkaline Phosphatase 75 U/L (38-126) 03/08/19 07:12 Total Protein 6.7 g/dL (6.3-8.2) 03/08/19 07:12 Albumin 2.7 g/dL (3.5-5.0) L 03/08/19 07:12 Microbiology 03/07/19 18:51 Foot - Right Gram Stain - Preliminary 03/07/19 18:51 Foot - Right Wound Culture - Preliminary Proteus vulgaris 03/07/19 17:10 Blood Blood Culture - Preliminary No Growth after 48 hours Assessment and Plan (1) Cellulitis of right lower extremity Narrative/Plan: Patient relates that he is just miserable and with his markedly decreasing status is what they did finally come to hospital. He has not been able to care for his right lower extremity, the edema has worsened greatly and he is just not feeling well. The patient is having difficulty with urination and with his obesity, very swollen right leg at the thigh through the genital, in the severe amount of fat in the prepubertal fat pad, has great difficulty and urinates into a trash can with the urine running off of the right leg. Local wound care will be applied to the ulceration of the right lower extremity tisha while here in hospital, to absorb drainage ABD pads and then the adult briefs can be utilized which will help observe the large amount of drainage The case has been discussed with the primary service and they agreed a Rodriguez catheter may be placed. This will hopefully allow some drying of the chronic macerated tissue on the right thigh to allow this to heal. We'll also hopefully then allow some healing of the right lower leg. Lasix will be added with his hypokalemia will recheck potassium as well as a magnesium level. Supplement as needed. Hopefully with diuresis, be some improvement of his significant shortness of breath and massive lower extremity edema. Antibiotic therapy with vancomycin and Zosyn is being utilized for now until his further culture data. The patient elevate the limb as much as he can to help with the chronic edema which is a mixture of venous stasis and chronic severe lymphedema. Discussions about his CODE STATUS are started and he will talk to his daughter about what his plans should be. Specifically addressing long-term issues such as chronic ventilatory status. He relates he liked his have his right leg amputated if we'll let him live longer. The patient is willing to go to rehab after his hospital stay to have some improvement. 03/09/2019 the patient is slightly less miserable today. His breathing is improved since of Rodriguez catheter is in place and is receiving diuretic therapy. He has in some improved pain. Still having difficulties moving about. In general he has a lot of anxiety related to his overall situation. Social work has been in and trying to determine if he would be a good candidate for transition to long-term care. This seems absently appropriate with his inability to really care for himself well. Patient however does exhibit a valid and significant concern that he does not want to go into long-term care and after 2 or 3 months be told that he has to leave because by then his current apartment would have to be given up and he would have nowhere to go. Patient will talk to his daughter about his advanced directives The patient again brings of amputation which is not an option at this point in time we'll work toward improving underlying infection which should be much more possible once he is in a controlled setting where he will we will to receive care to his limb, control his diet and fluid intake and his urinary output. Cultures are currently pending and we'll work with the discharge planning and the social work as far as antibiotics in the long-term care and attempt this discharge. PICC line is required we'll ask for a bariatric bed. Current Visit: No Status: Acute Code(s): L03.115 - CELLULITIS OF RIGHT LOWER LIMB SNOMED Code(s): 239622004 (2) Lymphedema praecox Current Visit: No Status: Acute Code(s): I89.0 - LYMPHEDEMA, NOT ELSEWHERE CLASSIFIED SNOMED Code(s): 41755650 (3) Poorly controlled type 2 diabetes mellitus with complication Current Visit: No Status: Acute Code(s): E11.8 - TYPE 2 DIABETES MELLITUS WITH UNSPECIFIED COMPLICATIONS; E11.65 - TYPE 2 DIABETES MELLITUS WITH HYPERGLYCEMIA SNOMED Code(s): 46756267
[2019-03-10] MEDS: HYDROcodone/APAP 10-325MG 1 EACH TAB PO PRN ×4 (00:16→18:25)
[2019-03-10] MEDS: INSULIN ASPART (NovoLOG) 100 UNIT/ML VIAL SQ SCH ×8 (02:50→20:48)
[2019-03-10] MEDS: PREGABALIN 75 MG CAP PO SCH ×4 (02:50→23:02)
[2019-03-10] MEDS: SODIUM CHLORIDE 0.9% 1,000 ML IV SCH ×2 (02:50→12:00)
[2019-03-10] MEDS: HEPARIN SODIUM,PORCINE 5,000 UNIT/ML 1 ML VIAL SQ SCH ×4 (02:51→23:12)
[2019-03-10] MEDS: HYDROmorphone 1 MG/ML 1 ML SYRINGE IV PRN ×2 (04:28→21:31)
[2019-03-10] MEDS: PIPERACILLIN-TAZOBACTAM 3.375 GM in SODIUM CHLORIDE 0.9% 100 ML IVPB SCH ×2 (04:28→14:05)
[2019-03-10] MEDS ORDERED: VANCOMYCIN TROUGH DUE 1 EACH MISC MISCELLANE ONE (07:00)
[2019-03-10 07:08] LABS: Glucose,Whole Blood 135 mg/dL (75-99)
[2019-03-10] MEDS: FUROSEMIDE 10 MG/ML 4 ML VIAL IV SCH ×2 (08:06→20:49)
[2019-03-10] MEDS: VANCOMYCIN 2,250 MG in SODIUM CHLORIDE 0.9% 500 ML 500 ML IVPB SCH ×2 (08:06→11:37)
[2019-03-10 08:39] LABS: African American GFR (CKD) >90 (>60 ml/min/1.73 sqM); Anion Gap 8 mmol/L; Blood Urea Nitrogen 13 mg/dL (9-20); Calcium 8.3 mg/dL (8.4-10.2); Carbon Dioxide 32 mmol/L (22-30); Chloride 100 mmol/L (98-107); Glucose 123 mg/dL (74-99); Magnesium 2.2 mg/dL (1.6-2.3); Potassium 3.8 mmol/L (3.5-5.1); Sodium 140 mmol/L (137-145)
[2019-03-10] MEDS ORDERED: LIDOCAINE 1% INJ 10MG/ML (20 ML MDV) ONE (10:52)
[2019-03-10] MEDS ORDERED: LIDOCAINE 1% INJ 10MG/ML (20 ML MDV) SQ ONE (11:11)
[2019-03-10 11:42] LABS: Glucose,Whole Blood 154 mg/dL (75-99)
[2019-03-10] MEDS ORDERED: ALPRAZolam 0.5 MG TAB PO PRN (15:16)
[2019-03-10] MEDS: BISACODYL 5 MG TABLET.DR PO SCH (16:03)
[2019-03-10 17:08] LABS: Glucose,Whole Blood 152 mg/dL (75-99)
[2019-03-10 17:13] VITALS: RESP 18
--- NOTE | 2019-03-10 18:30 | P.PN ---
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 In the ER he underwent an extensive evaluation. On arrival he was found to be tachycardic with a pulsatile 123. Initial laboratory analysis showed an elevated white blood cell count 20.1, hemoglobin 12.9, carbon dioxide of 35, sodium 134, glucose of 178, and total bilirubin of 1.8. He is also found to have redness and excoriation to the right lower extremity. He was started on vancomycin and Zosyn. He was admitted for further recommendations. Infectious disease was consulted who agreed with vancomycin and Zosyn. They also added Lasix to help with lower extremity edema. Rodriguez catheter was ordered by infectious disease as patient has been urinating on himself letting it spilled on his right leg and into the trash can is likely leading to his macerated skin on the right leg. Patient had a PICC line placed for IV antibiotics. Wound culture came back with Proteus. Patient seen and examined at bedside. Pain is better controlled today, however feeling anxious. Denies any nausea, vomiting, or diarrhea. No chest pain or shortness of breath. Wants to ensure he maintains Rodriguez catheter placed on discharge the family. Also interested in long-term care. Objective - Vital Signs Vital signs: Vital Signs Temp 98.3 F 03/10/19 17:13 Pulse 79 03/10/19 17:13 Resp 18 03/10/19 17:13 BP 150/70 03/10/19 17:13 Pulse Ox 99 03/10/19 17:13 Intake & Output 03/09/19 03/10/19 03/10/19 18:59 06:59 18:59 Intake Total 1570 1180 Output Total 1800 2800 Balance -230 -1620 Weight 149.685 kg Intake: Intake, IV Titration 600 Amount Piperacillin-Tazobactam 3 50 .375 gm In Sodium Chloride 0.9% 100 ml @ 25 mls/hr IVPB Q8H [facility] Rx#: [id number] Vancomycin 2,250 mg In 500 Sodium Chloride 0.9% 500 ml 500 ml @ 167 mls/hr IVPB Q16H [facility] Rx#: [id number] cefTRIAXone 2 gm In 50 Sodium Chloride 0.9% 50 ml @ 100 mls/hr IVPB Q24HR [facility] Rx#:[id number] Oral 1570 580 Output: Urine 1800 2800 Uretheral (Rodriguez) 700 Other: Voiding Method Indwelling Catheter Indwelling Catheter Indwelling Catheter # Voids 1 1 - Exam General: non toxic, no distress, appears older than stated age Derm: Right lower extremity with josé appearance and edema edema of the entire right lower extremity, dressing in place over right lower extremity, excoriation and irritation noted to the posterior and inner thigh area of right lower extremity- improving , dry Head: atraumatic, normocephalic, symmetric Eyes: EOMI, no lid lag, anicteric sclera Mouth: no lip lesion, mucus membranes moist Cardiovascular: S1S2 reg, no murmur, decreased posterior tibial pulse bilateral Lungs: Decreased breath sounds bilateral, no rhonchi, no rales , no accessory muscle use Abdominal: soft, nontender to palpation, no guarding, no appreciable organomegaly Ext: no gross muscle atrophy, lymphedema right lower extremity, no contractures Neuro: CN II-XI grossly intact, no focal neuro deficits Psych: Alert, oriented, appropriate affect - Labs CBC & Chem 7: 03/09/19 08:29 03/10/19 08:00 Labs: Abnormal Lab Results - Last 24 Hours (Table) 03/09/19 03/10/19 03/10/19 Range/Units 20:13 07:06 08:00 Carbon Dioxide 32 H (22-30) mmol/L Glucose 123 H (74-99) mg/dL POC Glucose (mg/dL) 116 H 135 H (75-99) mg/dL Calcium 8.3 L (8.4-10.2) mg/dL 03/10/19 03/10/19 Range/Units 11:40 17:06 Carbon Dioxide (22-30) mmol/L Glucose (74-99) mg/dL POC Glucose (mg/dL) 154 H 152 H (75-99) mg/dL Calcium (8.4-10.2) mg/dL Microbiology - Last 24 Hours (Table) 03/07/19 18:51 Gram Stain - Preliminary Foot - Right Wound Culture - Preliminary Proteus vulgaris 03/07/19 17:10 Blood Culture - Preliminary Blood No Growth after 48 hours Assessment and Plan Assessment: Right lower extremity cellulitis with infection of ulcers and sepsis and lymphedema -Proteus -ID recommendations appreciated - Rocephin for 21 days on discharge, PICC line in place -Wound care recommendations per Dr. Shelton -Elevate and wrap legs -Sees Dr. Mansfield at the wound care center - on lasix Diabetes mellitus type 2 with hyperglycemia resolved -Trulicity hold -NovoLog fixed and sliding scale insulin -A1c 5.4 Debility -Patient is typically wheelchair bound and only walks short distances walker -Has been having more difficulty ambulating with his walker -PT/OT -Fall precautions -Likely will need subacute rehab on discharge Acute on chronic pain -Astoria and Lyrica -Continue Dilaudid for breakthrough pain -Heat pack as needed Hypokalemia, resolved -start daily potassium replacement Morbid obesity with BMI 47.3 -Structured outpatient weight loss Coronary artery disease -Not chronically on antiplatelet agents or beta blockers -Continue outpatient follow-up hypontemia, resoled Chronic: Asthma, obstructive sleep apnea DVT prophylaxis: heparin Discussed with: Patient, nursing Anticipated discharge: in AM Anticipated discharge place: SNF A total of 35 minutes was spent on the care of this complex patient more than 50% of the time was spent in counseling and care coordination.
[2019-03-10] MEDS: POTASSIUM CHLORIDE ER 20 MEQ TAB.ER PO SCH (20:00)
[2019-03-10 20:24] LABS: Glucose,Whole Blood 142 mg/dL (75-99)
[2019-03-11] MEDS: SODIUM CHLORIDE 0.9% 1,000 ML IV SCH (01:48)
[2019-03-11] MEDS: HYDROcodone/APAP 10-325MG 1 EACH TAB PO PRN ×2 (03:12→13:13)
[2019-03-11 05:00] VITALS: BP 130/76; PULSE 83; TEMP 97.6
[2019-03-11 07:11] LABS: Glucose,Whole Blood 105 mg/dL (75-99)
[2019-03-11] MEDS: HEPARIN SODIUM,PORCINE 5,000 UNIT/ML 1 ML VIAL SQ SCH (07:17)
[2019-03-11] MEDS: PREGABALIN 75 MG CAP PO SCH (07:17)
[2019-03-11] MEDS: FUROSEMIDE 10 MG/ML 4 ML VIAL IV SCH (07:17)
[2019-03-11] MEDS: BISACODYL 5 MG TABLET.DR PO SCH (07:17)
[2019-03-11] MEDS: POTASSIUM CHLORIDE ER 20 MEQ TAB.ER PO SCH (07:17)
[2019-03-11] MEDS: INSULIN ASPART (NovoLOG) 100 UNIT/ML VIAL SQ SCH ×4 (07:21→12:52)
--- NOTE | 2019-03-11 09:44 | P.DS ---
Providers Date of admission: 03/07/19 16:22 Expected date of discharge: 03/11/19 Attending physician: Julio Talbot MD Consults: 03/07/19 16:23 Consult Physician Urgent Consulting Provider: Iker Shelton Consult Reason/Comments: Leg wound, cellulitis, sepsis Do you want consulting provider notified?: Yes Primary care physician: [facility] Course: Discharge Diagnosis: Right lower extremity cellulitis with infection of ulcers and sepsis along with lymphedema DM 2 with Hyperglycemia Debility Acute on chronic pain Hypokalemia Morbid obesity with BMI 47.3 Coronary artery disease Hyponatremia [facility] Course: Patient is a 58-year-old male past medical history of diabetes mellitu s type 2, COPD, coronary artery disease with prior myocardial infarction, right lower extremity chronic wounds associated with lymphedema who presented to the ER with complaints of right leg pain. In the ER he underwent an extensive evaluation. On arrival he was found to be tachycardic with a pulse of 123. Initial laboratory analysis showed an elevated white blood cell count 20.1, hemoglobin 12.9, carbon dioxide of 35, sodium 134, glucose of 178, and total bilirubin of 1.8. He is also found to have redness and excoriation to the right lower extremity. He was started on vancomycin and Zosyn. He was admitted for further recommendations. Infectious disease was consulted who agreed with vancomycin and Zosyn. They also added Lasix to help with lower extremity edema. Ruiz catheter was ordered by infectious disease as patient has been urinating on himself letting it spilled on his right leg and into the trash can is likely leading to his macerated skin on the right leg. Patient had a PICC line placed for IV antibiotics. Wound culture came back with Proteus and ID recommended 21 days of rocephin. Patient was determined stable for discharge and will fo to SNF at [facility]. Patient seen and examined at bedside. C/O not getting eggs on his tray, No chest pain, SOB, nausea or vomiting, No diarrhea Vital signs reviewed and stable. General: non toxic, no distress, appears older than stated age Derm: Right lower extremity with josé appearance and edema edema of the entire right lower extremity, dressing in place over right lower extremity,warm, dry Head: atraumatic, normocephalic, symmetric Eyes: EOMI, no lid lag, anicteric sclera Mouth: no lip lesion, mucus membranes moist Cardiovascular: S1S2 reg, no murmur, positive posterior tibial pulse bilateral, Lungs: CTA bilateral, no rhonchi, no rales , no accessory muscle use Abdominal: soft, nontender to palpation, no guarding, no appreciable orga nomegaly Ext: no gross muscle atrophy, no edema, no contractures Neuro: CN II-XI grossly intact, no focal neuro deficits Psych: Alert, oriented, appropriate affect A total of 35 minutes of time were spent preparing this complex discharge summary . Patient Condition at Discharge: Stable Plan - Discharge Summary Discharge Rx Participant: Yes New Discharge Prescriptions: New cefTRIAXone [Rocephin] 2 gm IM Q24H #21 vial Bisacodyl [Dulcolax] 5 mg PO DAILY tablet. Ipratropium-Albuterol Nebulize [Duoneb 0.5 mg-3 mg/3 ml Soln] 3 ml INHALATION RT-QID PRN ampul.neb PRN Reason: Shortness Of Breath Or Wheezing Heparin Sodium,Porcine [Heparin Sodium] 5,000 unit SQ Q8HR vial Potassium Chloride ER [K-Dur 20] 20 meq PO DAILY tab.er.prt Furosemide [Lasix] 40 mg PO BID #60 tablet Pregabalin [Lyrica] 75 mg PO TID #21 cap HYDROcodone/APAP 10-325MG [Buckley 10-325] 1 each PO Q6H PRN #20 tab PRN Reason: Pain ALPRAZolam [Xanax] 0.5 mg PO TID PRN #9 tab PRN Reason: Anxiety Continue hydrOXYzine HCL [Atarax] 50 - 100 mg PO Q6H PRN PRN Reason: Anxiety Insulin Aspart [NovoLOG Flexpen] 20 units SQ TID Ergocalciferol (Vitamin D2) [Drisdol] 50,000 unit PO TUTH Discontinued Dulaglutide [Trulicity] 1.5 mg SQ MO traMADol HCL [Ultram] 50 mg PO QID SILVER sulfADIAZINE CREAM [Silvadene Cream] 1 applic TOPICAL DAILY Discharge Medication List Ergocalciferol (Vitamin D2) [Drisdol] 50,000 unit PO TUTH 03/07/19 [History] Insulin Aspart [NovoLOG Flexpen] 20 units SQ TID 03/07/19 [History] hydrOXYzine HCL [Atarax] 50 - 100 mg PO Q6H PRN 03/07/19 [History] cefTRIAXone [Rocephin] 2 gm IM Q24H #21 vial 03/10/19 [Rx] ALPRAZolam [Xanax] 0.5 mg PO TID PRN #9 tab 03/11/19 [Rx] Bisacodyl [Dulcolax] 5 mg PO DAILY tablet.dr 03/11/19 [Rx] Furosemide [Lasix] 40 mg PO BID #60 tablet 03/11/19 [Rx] HYDROcodone/APAP 10-325MG [Buckley 10-325] 1 each PO Q6H PRN #20 tab 03/11/19 [Rx] Heparin Sodium,Porcine [Heparin Sodium] 5,000 unit SQ Q8HR vial 03/11/19 [Rx] Ipratropium-Albuterol Nebulize [Duoneb 0.5 mg-3 mg/3 ml Soln] 3 ml INHALATION RT-QID PRN ampul.neb 03/11/19 [Rx] Potassium Chloride ER [K-Dur 20] 20 meq PO DAILY tab.er.prt 03/11/19 [Rx] Pregabalin [Lyrica] 75 mg PO TID #21 cap 03/11/19 [Rx] Follow up Appointment(s)/Referral(s): Iker Shelton MD [STAFF PHYSICIAN] - 4 Weeks Sukumar Kaur MD [Primary Care Provider] - 1-2 days (1-2 days after discharge from SNF) Ambulatory/Diagnostic Orders: Basic Metabolic Panel [LAB.AMB] Location: None Selected Complete Blood Count w/diff [LAB.AMB] Location: None Selected Activity/Diet/Wound Care/Special Instructions: Diet: heart health cab consistent Activity: up with assistance Wound care : therahoney to the right foot and ankle ulcerations cover with ABD then adult brief to hold in place Maintain ruiz cath to ensure that right thigh skin excoriations are able to heal.
[2019-03-11 11:44] LABS: Glucose,Whole Blood 129 mg/dL (75-99)
== END 2019-03-11 14:11 | DRG 872 ==
LOC: EC 14:09 → 4MS4W 16:22 → 3NMEDONC 19:05
PROVIDERS: ADMIT Family Medicine; ATTEND Family Medicine
PROC: B51M1ZA Fluoroscopy of Right Upper Extremity Veins using Low Osmolar Contrast, Guidance (ICD-10-PCS; principal; 2019-03-10 11:00)
PROC: 05HY33Z Insertion of Infusion Device into Upper Vein, Percutaneous Approach (ICD-10-PCS; principal; 2019-03-10 11:00)
DX: A41.9 Sepsis, unspecified organism (principal); L03.115 Cellulitis of right lower limb; Z68.42 Body mass index [BMI] 45.0-49.9, adult; E87.1 Hypo-osmolality and hyponatremia; L97.929 Non-pressure chronic ulcer of unspecified part of left lower leg with unspecified severity; L97.919 Non-pressure chronic ulcer of unspecified part of right lower leg with unspecified severity; E11.621 Type 2 diabetes mellitus with foot ulcer; E66.01 Morbid (severe) obesity due to excess calories; E11.65 Type 2 diabetes mellitus with hyperglycemia; I83.029 Varicose veins of left lower extremity with ulcer of unspecified site; L97.509 Non-pressure chronic ulcer of other part of unspecified foot with unspecified severity; E87.6 Hypokalemia; F41.9 Anxiety disorder, unspecified; I25.10 Atherosclerotic heart disease of native coronary artery without angina pectoris; G89.29 Other chronic pain; G47.33 Obstructive sleep apnea (adult) (pediatric); D64.9 Anemia, unspecified; I89.0 Lymphedema, not elsewhere classified; I87.8 Other specified disorders of veins; I50.9 Heart failure, unspecified; I83.019 Varicose veins of right lower extremity with ulcer of unspecified site; J44.9 Chronic obstructive pulmonary disease, unspecified; I25.2 Old myocardial infarction; Z87.891 Personal history of nicotine dependence; Z95.5 Presence of coronary angioplasty implant and graft; Z79.82 Long term (current) use of aspirin; Z99.3 Dependence on wheelchair; Z79.4 Long term (current) use of insulin; Z79.899 Other long term (current) drug therapy; Z91.048 Other nonmedicinal substance allergy status; Z99.89 Dependence on other enabling machines and devices; Z98.890 Other specified postprocedural states; Z80.9 Family history of malignant neoplasm, unspecified
CPT/HCPCS: 36573; 80048; 80053; 80202; 83036; 83605; 83735; 84132; 85025; 85027; 85610; 85730; 87040; 87070; 87077; 87186; 87205; 93005; 96365; 96366; 96375; 99291

== ENCOUNTER 2019-09-01 15:42 | Inpatient (IN) | payer MEDICARE ==
[2019-09-01] MEDS: PREGABALIN 100 MG CAP PO SCH (21:50)
[2019-09-01] MEDS: HYDROcodone/APAP 10-325MG 1 EACH TAB PO PRN (21:50)
[2019-09-02 07:18] LABS: Glucose,Whole Blood 140 mg/dL (75-99)
[2019-09-02 09:37] LABS: Basophils # (A) 0.3 k/uL (0-0.2); Basophils % (A) 2 %; Eosinophils # (A) 0.7 k/uL (0-0.7); Eosinophils % (A) 5 %; HCT 32.2 % (39.0-53.0); HGB 10.8 gm/dL (13.0-17.5); Lymphocytes # (A) 1.1 k/uL (1.0-4.8); Lymphocytes % (A) 7 %; MCHC 33.4 g/dL (31.0-37.0); MCV 92.8 fL (80.0-100.0); Mean Platelet Volume 7.9; Monocytes # (A) 0.8 k/uL (0-1.0); Monocytes % (A) 5 %; Neutrophils # (A) 12.8 k/uL (1.3-7.7); Neutrophils % (A) 80 %; Platelet Count 408 k/uL (150-450); Poikilocytosis Slight; RBC 3.47 m/uL (4.30-5.90); RDW 14.3 % (11.5-15.5); WBC 16.1 k/uL (3.8-10.6)
[2019-09-02] MEDS: PREGABALIN 100 MG CAP PO SCH ×5 (09:38→21:21)
[2019-09-02] MEDS: HYDROcodone/APAP 10-325MG 1 EACH TAB PO PRN (09:38)
[2019-09-02 09:52] LABS: ALT 18 U/L (4-49); AST 40 U/L (17-59); African American GFR (CKD) >90 (>60 ml/min/1.73 sqM); Albumin 3.1 g/dL (3.5-5.0); Alkaline Phosphatase 88 U/L (38-126); Anion Gap 10 mmol/L; Blood Urea Nitrogen 26 mg/dL (9-20); Calcium 8.8 mg/dL (8.4-10.2); Carbon Dioxide 33 mmol/L (22-30); Chloride 93 mmol/L (98-107); Glucose 139 mg/dL (74-99); Non-African American GFR(CKD) >90 (>60 ml/min/1.73 sqM); Potassium 3.8 mmol/L (3.5-5.1); Sodium 136 mmol/L (137-145); Total Bilirubin 0.9 mg/dL (0.2-1.3); Total Protein 7.6 g/dL (6.3-8.2)
[2019-09-02 11:48] LABS: Glucose,Whole Blood 165 mg/dL (75-99)
[2019-09-02] MEDS ORDERED: ACETAMINOPHEN TAB 325 MG TAB PO PRN (12:14)
[2019-09-02] MEDS ORDERED: BENZOCAINE/MENTHOL LOZENG 1 EACH LOZENGE MUCOUS MEM PRN (12:14)
[2019-09-02] MEDS ORDERED: MAG HYDROX/AL HYDROX/SIMETH 30 ML CUP PO PRN (12:14)
[2019-09-02] MEDS ORDERED: MAGNESIUM HYDROXIDE 2,400 MG/10 ML CUP PO PRN (12:14)
[2019-09-02] MEDS ORDERED: SODIUM CHLORIDE 0.65% NASAL SPRAY 44 ML BTL NASAL PRN (12:14)
--- NOTE | 2019-09-02 12:26 | P.CONS ---
History of Present Illness - Reason for Consult Consult date: 09/02/19 Wound care - History of Present Illness This is a 59-year-old patient who is being seen by the wound care center on [address] for multiple chronic ulcerations. Patient states that the ulcerations have been there for multiple years. Patient states that the ulceration to the back of his right lower extremity and sacrum has been treated with triad in the past. Patient also has a ulceration to the lateral aspect of the right foot that has a foam dressing on. Patient states that they were using a different dressing however it is getting smaller that they have changed to foam. Patient complains of significant amount of pain to the sacrum. Patient has history of morbid obesity, diabetes, heart failure, COPD, coronary artery disease, sleep apnea, difficult cannulation. Patient was a smoker smoking 2 packs a day for 40 years and quit in 2017. Review of Systems Review Of Systems: Constitutional: No fever, no chills, no night sweats. No weight change. No weakness, fatigue or lethargy. No daytime sleepiness. Reports pain Integumentary:reports wounds, reports lesions. Report rash and pruritus. No unusual bruising. No change in hair or nails. Past Medical History Past Medical History: Asthma, Coronary Artery Disease (CAD), Heart Failure, COPD, Diabetes Mellitus, Myocardial Infarction ([place]), Prostate Disorder, Skin Disorder, Sleep Apnea/CPAP/BIPAP Additional Past Medical History / Comment(s): Bilateral lower extremity ulcers, edema left lower legs, edema and "tumor" rt leg, diff with ambulation, Last Myocardial Infarction Date:: 1999 History of Any Multi-Drug Resistant Organisms: None Reported Past Surgical History: Heart Catheterization With Stent, Tonsillectomy Additional Past Surgical History / Comment(s): chest tube in for collapsed lung, one cardiac stent, Past Anesthesia/Blood Transfusion Reactions: No Reported Reaction Date of Last Stent Placement:: 1999 Past Psychological History: Anxiety Additional Psychological History / Comment(s): . Smoking Status: Former smoker Past Alcohol Use History: None Reported Additional Past Alcohol Use History / Comment(s): Patient was a smoker of 2 packs per day for 40 years and quit in 2017. He denies any marijuana or street drug use. He states he drinks alcohol socially. He utilizes walker to transfer. He denies any service or travel. 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 Past Drug Use History: None Reported - Past Family History Father Family Medical History: Unable to Obtain Mother Family Medical History: Unable to Obtain Sister(s) Family Medical History: Cancer Medications and Allergies Home Medications Medication Instructions Recorded Confirmed Type Acetaminophen Tab [Tylenol] 650 mg PO Q4H PRN 09/01/19 09/01/19 History Aspirin [Mehan Aspirin EC] 81 mg PO DAILY@1700 09/01/19 09/01/19 History Benzocaine/Menthol Lozeng [Cepacol 1 each MUCOUS MEM Q2H PRN 09/01/19 09/01/19 History lozenge] Bisacodyl [Dulcolax] 5 mg PO DAILY@0700 09/01/19 09/01/19 History Bumetanide 2 mg PO BID@0800,1300 09/01/19 09/01/19 History Carvedilol [Coreg] 3.125 mg PO BID@0700,1700 09/01/19 09/01/19 History Chlorhexidine Gluconate [Hibiclens] 1 applic TOPICAL Q7D 09/01/19 09/01/19 History Cholecalciferol [Vitamin D3 (25 1,000 unit PO BID@0700,1700 09/01/19 09/01/19 History Mcg = 1000 Iu)] Clindamycin [Cleocin] 450 mg PO Q6H 09/01/19 09/01/19 History Fluticasone Nasal [place] [Flonase 2 spr EA NOSTRIL DAILY@0700 09/01/19 09/01/19 History Nasal [place]] HYDROcodone/APAP 10-325MG [[place] 1 tab PO Q6H PRN 09/01/19 09/01/19 History 10-325] Hydraguard Lotion 1 applic TOPICAL TID 09/01/19 09/01/19 History Insulin Glargine,Hum.rec.anlog 50 unit SQ HS 09/01/19 09/01/19 History [Lantus Solostar] Insulin Lispro [humaLOG Kwikpen] 15 unit SQ TID 09/01/19 09/01/19 History Ketoconazole 2% Shampoo [Nizoral] 1 applic TOPICAL TUTHSA 09/01/19 09/01/19 History L.acidoph,Paracasei, B.lactis 2 cap PO BID@0900,2100 09/01/19 09/01/19 History [Probiotic] Loratadine 10 mg PO DAILY@1800 09/01/19 09/01/19 History Losartan [Cozaar] 25 mg PO DAILY@1200 09/01/19 09/01/19 History Mag Hydrox/Aluminum Hyd/Simeth 10 ml PO Q4H PRN 09/01/19 09/01/19 History [Mylanta Maximum Strength Liq] Magnesium Hydroxide [Milk of 2,400 mg PO DAILY PRN 09/01/19 09/01/19 History Magnesia] Menthol [Nice Cough Drops] 1 drop BUCCAL Q2H PRN 09/01/19 09/01/19 History Metolazone [Zaroxolyn] 5 mg PO MOWEFR 09/01/19 09/01/19 History Nicotine Polacrilex [Nicotine 4 mg BUCCAL Q6H PRN 09/01/19 09/01/19 History Lozenge] Nystatin 100,000 Unit/gm Powd 1 applic TOPICAL TID 09/01/19 09/01/19 History [Mycostatin Powder] Omeprazole [PriLOSEC] 20 mg PO BID@0600,1600 09/01/19 09/01/19 History Potassium Chloride ER [K-Dur 20] 40 meq PO TID 09/01/19 09/01/19 History Pregabalin [Lyrica] 100 mg PO TID@0700,1300,2100 09/01/19 09/01/19 History Sodium Chloride [Saline Nasal 1 spray EA NOSTRIL Q2H PRN 09/01/19 09/01/19 History [place]] Spironolactone [Aldactone] 25 mg PO DAILY@0800 09/01/19 09/01/19 History Allergies Allergy/AdvReac Type Severity Reaction Status Date / Time adhesive tape Allergy Rash/Hives Verified 09/01/19 23:26 Physical Exam Vitals: Vital Signs Temp Pulse Resp BP Pulse Ox 09/02/19 11:42 99 16 101/56 92 L 09/02/19 05:12 98.9 F 90 16 120/60 90 L 09/02/19 00:00 16 09/01/19 23:00 98.2 F 107 H 20 135/65 91 L Intake and Output 09/01/19 09/02/19 09/02/19 22:59 06:59 14:59 Intake Total 770 530 Output Total 1250 1000 Balance -480 530 -1000 Intake: Intake, IV Titration 50 50 Amount ceFAZolin 1,000 mg In 50 50 Sodium Chloride 0.9% 50 ml @ 100 mls/hr IVPB Q8HR [facility] Rx#:[id number] Oral 720 480 Output: Urine 1250 1000 Other: Voiding Method Indwelling Catheter Indwelling Catheter Weight 159.038 kg Physical exam: General Appearance: Alert, cooperative, no distress, appears stated age. Skin: Sacrum: Multiple ulcerations with fat layer exposure, maceration and excoriation noted throughout the entire area extending to the perineal. Suprapubic area red and with irritation and maceration. Right lower extremity posterior aspect, maceration multiple ulcerations with fat layer exposure redness and exudate noted. Ulceration to the right medial lower extremity Limited to skin breakdown. Ulceration to right lateral foot fat layer exposure with exudate and slough. Left elbow skin tear Limited to skin breakdown. Sangious drainage. N necrotic flap noted. all other Skin color, texture, tugor normal, no rashes or lesions. Neurologic: Alert oriented x3 Results CBC & Chem 7: 09/02/19 08:50 09/02/19 08:50 Labs: Abnormal Lab Results - Last 24 Hours (Table) 09/02/19 09/02/19 09/02/19 Range/Units 07:16 08:50 08:50 WBC 16.1 H (3.8-10.6) k/uL RBC 3.47 L (4.30-5.90) m/uL Hgb 10.8 L (13.0-17.5) gm/dL Hct 32.2 L (39.0-53.0) % Neutrophils # 12.8 H (1.3-7.7) k/uL Basophils # 0.3 H (0-0.2) k/uL Sodium 136 L (137-145) mmol/L Chloride 93 L (98-107) mmol/L Carbon Dioxide 33 H (22-30) mmol/L BUN 26 H (9-20) mg/dL Glucose 139 H (74-99) mg/dL POC Glucose (mg/dL) 140 H (75-99) mg/dL Albumin 3.1 L (3.5-5.0) g/dL 09/02/19 Range/Units 11:44 WBC (3.8-10.6) k/uL RBC (4.30-5.90) m/uL Hgb (13.0-17.5) gm/dL Hct (39.0-53.0) % Neutrophils # (1.3-7.7) k/uL Basophils # (0-0.2) k/uL Sodium (137-145) mmol/L Chloride (98-107) mmol/L Carbon Dioxide (22-30) mmol/L BUN (9-20) mg/dL Glucose (74-99) mg/dL POC Glucose (mg/dL) 165 H (75-99) mg/dL Albumin (3.5-5.0) g/dL Assessment and Plan (1) Diabetic foot ulcer associated with type 2 diabetes mellitus, with fat layer exposed Current Visit: Yes Status: Acute Code(s): E11.621 - TYPE 2 DIABETES MELLITUS WITH FOOT ULCER; L97.502 - NON-PRS CHRONIC ULCER OTH PRT UNSP FOOT W FAT LAYER EXPOSED SNOMED Code(s): 1653502694623 (2) Pressure injury of sacral region, stage 2 Current Visit: Yes Status: Acute Code(s): L89.152 - PRESSURE ULCER OF SACRAL REGION, STAGE 2 SNOMED Code(s): 732111815 (3) Chronic venous hypertension w/ulcer and inflammation involv right side Current Visit: Yes Status: Acute Code(s): I87.331 - CHRONIC VENOUS HTN W ULCER AND INFLAMMATION OF R LOW EXTREM; L97.919 - NON-PRS CHRONIC ULC UNSP PRT OF R LOW LEG W UNSP SEVERITY SNOMED Code(s): 818248635 (4) Yeast infection of the skin Current Visit: Yes Status: Acute Code(s): B37.2 - CANDIDIASIS OF SKIN AND NAIL SNOMED Code(s): 48923998 (5) Cellulitis of right lower extremity Current Visit: No Status: Acute Code(s): L03.115 - CELLULITIS OF RIGHT LOWER LIMB SNOMED Code(s): 888618212 Plan: Sacral region: Apply triad to all ulcerations and reddened area. Apply daily. Clean area with normal saline dried thoroughly. Right lower extremity clean daily with normal saline apply triad. May cover with Kerlix as needed. Right lateral foot: Apply honey alginate, saline moistened gauze, and foam border dressing, change Thursday. Utilize is to dry to off consult as needed. Discussed with patient changing the catheter due to irritation and po ssible contamination. Patient declined. May apply bag balm to upper back and axilla as needed. Left elbow skin tear apply zinc barrier cream and wrap with Kerlix may change daily. Review surface algorithm and moved to and offloading surface. Discussed with patient the need for continued wound treatment, patient states that he is receiving wound care at the facility he lives that. Declining at this time further outpatient wound care. Thank you kindly for the consultation. Any questions please contact the wound care center. DNP note has been reviewed and discussed with Dr. Thomas and the impression and plan of care has been directed as dictated.
[2019-09-02] MEDS: INSULIN ASPART (NovoLOG) 100 UNIT/ML VIAL SQ SCH ×2 (14:43→17:09)
[2019-09-02] MEDS: NYSTATIN 100,000 UNIT/GM POWD 15 GM TOPICAL SCH ×2 (15:03→20:45)
[2019-09-02] MEDS: PETROLAT,WHITE/LAN/8-HYDROXYQU 227 GM OINT TOPICAL SCH (15:03)
[2019-09-02] MEDS: KETOCONAZOLE 2% SHAMPOO 1 APPLIC/ML TOPICAL SCH (15:03)
[2019-09-02] MEDS: HYDROPHILIC CREAM 180 GM TUBE TOPICAL SCH (15:03)
[2019-09-02] MEDS: HYDROmorphone 1 MG/ML 1 ML SYRINGE IVP PRN (15:04)
[2019-09-02] MEDS ORDERED: ALPRAZolam 0.25 MG TAB PO PRN (15:17)
[2019-09-02] MEDS ORDERED: TEMAZEPAM 15 MG CAP PO PRN (15:17)
[2019-09-02] MEDS: FLUCONAZOLE IN NACL,ISO-OSM 200 MG in SALINE 1 100ML.BAG IVPB SCH (15:17)
[2019-09-02] MEDS ORDERED: PIPERACILLIN-TAZOBACTAM 3.375 GM in SODIUM CHLORIDE 0.9% 100 ML IVPB SCH (16:00)
[2019-09-02] MEDS ORDERED: HYDRAGUARD TOPICAL SCH (16:00)
[2019-09-02 17:06] LABS: Glucose,Whole Blood 133 mg/dL (75-99)
[2019-09-02] MEDS: metroNIDAZOLE-NS PMX 500 MG in SALINE 1 100ML.BAG IVPB SCH ×2 (17:06→22:32)
--- NOTE | 2019-09-02 17:07 | HP ---
HISTORY AND PHYSICAL CHIEF COMPLAINTS: Pain and swelling, ulceration of the sacral area as well as the posterior part of the right leg. HISTORY OF PRESENT ILLNESS: This 59-year-old gentleman with a past medical history of asthma, CAD, CHF, COPD, diabetes mellitus, history of myocardial infarction, sleep apnea, history of bilateral lower extremity ulcers, history of anxiety, history of nicotine dependence, being followed by Dr. Andres Winters in the outpatient setting, is a resident of [facility]. The patient apparently was evaluated in the [facility] for significant ulcerations and apparently they wanted to do surgery, but they gave him a 50/50 chance, and the patient did not take it. Patient was subsequently admitted to [facility]. The patient presented to [facility] on multiple occasions with significant cellulitis and severe pain. Because of lack of improvement, the physician at [facility] discussed the case at length with and the patient was transferred to [facility] for further evaluation and treatment. The patient has significant foul-smelling ulcerations and some discharge, mainly on the right posterior leg which is macerated with some significant discharge and severe pain also. The patient had extensive ulcerations and erythema and macerated skin, including the groin area, scrotal area and also extensively on the right posterior thigh and sacral area. The patient also had some ulceration on the right lateral foot. There is no history of any fever, rigor or chills. No history of headache, loss of consciousness, seizures. PAST MEDICAL HISTORY: Asthma, CAD, history of CHF, COPD, diabetes mellitus, history of myocardial infarction, history of sleep apnea, history of bilateral lower extremity ulcers, edema of lower legs and CAD, stent, anxiety. HOME MEDICATIONS: 2. Saline nasal spray. 3. Nicotine lozenge. 4. Cough drops. 5. Milk of Magnesia. 6. Mylanta. 7. Tylenol p.r.n. 8. [place] 10 mg q.6 p.r.n. 9. Cleocin 40 mg q.6. 10.K-Dur 40 mEq p.o. t.i.d. 11.Humalog 15 units before meals t.i.d. 12.Lyrica 100 mg p.o. t.i.d. 13.Prilosec 20 mg b.i.d. 14.Probiotic daily. 15.Coreg 3.125 mg p.o. b.i.d. 16.Vitamin D3 1000 b.i.d. 17.Zaroxolyn 5 mg Thursday, Thursday, Thursday. 18.Bumex 2 mg p.o. b.i.d. 19.Cozaar 25 mg p.o. daily. 20.Aldactone 25 mg p.o. daily. 21.Loratadine 10 mg p.o. daily. 22.Lantus 50 units subcutaneously at bedtime. 23.Flonase 2 sprays daily. 24.Dulcolax 5 mg p.o. daily. 25.Aspirin 81 mg p.o. daily. 26.Hibiclens 1 application t.i.d. 27.Nystatin 1 application t.i.d. ALLERGIES: ADHESIVE TAPES. FAMILY HISTORY: History of cancer in the family. SOCIAL HISTORY: Previous history of smoking. No current smoking or alcohol intake. REVIEW OF SYSTEMS: ENT: No diminished hearing. No diminished vision. CARDIOVASCULAR SYSTEM: No angina, palpitations. RESPIRATORY SYSTEM: No cough, hemoptysis. GI: As mentioned earlier. : As mentioned earlier. Patient has got Rodriguez catheter. NERVOUS SYSTEM: As mentioned earlier. ALLERGY/IMMUNOLOGY: No asthma, hayfever. MUSCULOSKELETAL: As mentioned earlier. HEMATOLOGY/ONCOLOGY: No history of anemia. ENDOCRINE: As mentioned earlier. CONSTITUTIONAL: As mentioned earlier. DERMATOLOGY: As mentioned earlier. RHEUMATOLOGY: Negative. PSYCHIATRY: As mentioned earlier. PHYSICAL EXAMINATION: Patient alert and oriented x3. Pulse 99, blood pressure 109/56, respirations 16, temperature 98.9, pulse ox 92% on room air. HEENT: Conjunctivae normal. Oral mucosa moist. NECK: Obese. CARDIOVASCULAR SYSTEM: S1, S2 muffled. No S3. No S4. RESPIRATORY SYSTEM: Breath sounds diminished at the bases. No rhonchi. No crackles. ABDOMEN: Soft, obese, non-tender. No mass palpable. LEGS: Significant ulceration, maceration and foul-smelling discharge present on the posterior part of the sacrum, the groin area, and also extensive posterior part of the right thigh with deep ulcerations present. Otherwise, lateral part of the right foot also, grade 2-3 ulcer present. NERVOUS SYSTEM: Higher functions as mentioned earlier. Moves all 4 limbs. No focal motor or sensory deficit. LYMPHATICS: No lymph node palpable in neck, axillae or groin. SKIN: ntd JOINTS: No active deforming arthropathy. LABS: Labs at this time show WBC 16.2, hemoglobin 10.8, sodium 136, potassium 3.8. ASSESSMENT: 1. Diffuse significant ulcerations with foul-smelling discharge in the sacral area as well as posterior part of the right leg with possible sepsis, present on admission. 2. Severe pain secondary to number 1. 3. Increased white count. 4. Anemia, normocytic; anemia of chronic disease. 5. Hyponatremia. 6. Obesity with body mass index of 50.3. 7. Hypoalbuminemia with mild to moderate protein-calorie malnutrition. 8. History of asthma. 9. History of coronary artery disease. 10.History of congestive heart failure. 11.Chronic obstructive pulmonary disease. 12.Diabetes mellitus, type 2. 13.History of myocardial infarction. 14.History of prostate disease. 15.Sleep apnea. 16.History of coronary artery disease, stent. 17.History of anxiety. 18.Remote history of nicotine dependence. RECOMMENDATIONS AND DISCUSSION: In this 59-year-old gentleman who presented with multiple complex medical issues, we will monitor the patient closely, continue the current medications, continue symptomatic treatment. Otherwise at this time I recommend broad-spectrum IV antibiotics and antifungals. Cultures, including fungal cultures. Infectious disease evaluation. DVT prophylaxis. Resume the home medications. I would also recommend a baseline evaluation. The prognosis is extremely guarded because of multiple complex medical issues. Cultures were obtained. Discussed with the patient, who understands and agrees. Further recommendations to follow. A copy of this dictation is being forwarded to Dr. Andres Winters, who is following the patient in the ECF. MMODL / IJN: [id number] / MTDD
[2019-09-02] MEDS: CHOLECALCIFEROL 1,000 UNIT TAB PO SCH (17:09)
[2019-09-02] MEDS: METOLAZONE 5 MG TAB PO SCH (17:09)
[2019-09-02] MEDS: POTASSIUM CHLORIDE ER 20 MEQ TAB.ER PO SCH ×2 (17:09→20:42)
[2019-09-02] MEDS: ASPIRIN 81 MG PO SCH (17:09)
[2019-09-02] MEDS: LORATADINE 10 MG TAB PO SCH (17:09)
[2019-09-02] MEDS: CARVEDILOL 3.125 MG TAB PO SCH ×2 (17:09→17:12)
[2019-09-02] MEDS: HEPARIN SODIUM,PORCINE 5,000 UNIT/ML 1 ML VIAL SQ SCH ×2 (17:10→17:13)
[2019-09-02] MEDS: PANTOPRAZOLE 40 MG TABLET PO SCH (17:41)
[2019-09-02] MEDS: HYDROmorphone 0.5 MG/0.5 ML SYRINGE IVP PRN (19:31)
[2019-09-02 20:29] LABS: Glucose,Whole Blood 181 mg/dL (75-99)
[2019-09-02] MEDS: LACTOBACILLUS ACIDOPH & BULGAR 1 EACH PACKET PO SCH ×2 (20:42→20:48)
[2019-09-02] MEDS: INSULIN DETEMIR (LEVEMIR) 100 UNIT/ML SYR SQ SCH (20:54)
--- NOTE | 2019-09-02 22:11 | P.CONS ---
History of Present Illness - Reason for Consult Consult date: 09/02/19 bilateral gluteal and thigh cellulitis Requesting physician: Erasmo Quispe - Chief Complaint non healing wounds and pain to the gluteal and thigh area x weeks - History of Present Illness Patient is a 59-year male who apparently is a resident of a longterm in [facility] patient has been sent to the outside ER for evaluation of multiple wounds to his gluteal area and the posterior leg which apparently has been getting worse over the last weeks patient initially presented to [facility] with significant cellulitis to bilateral gluteal and thigh and subsequently has been transferred to [facility] for further management of the same patient denies high-grade fever or chills patient complaining of pain mostly to the posterior thigh in the gluteal wound area pain describing to be sharp at times dull aching worse with movement intensity about 7-8 out of 10 and no radiation of the pain did have some bloodstained drainage from his wounds patient on presented hospital has been afebrile however he did have elevated white count of 16,000 kidney function was normal CRP of 2-4 patient did have cultures obtained and has been started on multiple antibiotic during cefazolin Zosyn and fluconazole infectious was consulted for further recommendation for antibiotic therapy. Wound care nurse has been consulted for management of the wounds Review of Systems Positive point has been mentioned in HPI rest of the systems are negative. Past Medical History Past Medical History: Asthma, Coronary Artery Disease (CAD), Heart Failure, COPD, Diabetes Mellitus, Myocardial Infarction ([place]), Prostate Disorder, Skin Disorder, Sleep Apnea/CPAP/BIPAP Additional Past Medical History / Comment(s): Bilateral lower extremity ulcers, edema left lower legs, edema and "tumor" rt leg, diff with ambulation, Last Myocardial Infarction Date:: 1999 History of Any Multi-Drug Resistant Organisms: None Reported Past Surgical History: Heart Catheterization With Stent, Tonsillectomy Additional Past Surgical History / Comment(s): chest tube in for collapsed lung, one cardiac stent, Past Anesthesia/Blood Transfusion Reactions: No Reported Reaction Date of Last Stent Placement:: 1999 Past Psychological History: Anxiety Additional Psychological History / Comment(s): . Smoking Status: Former smoker Past Alcohol Use History: None Reported Additional Past Alcohol Use History / Comment(s): Patient was a smoker of 2 packs per day for 40 years and quit in 2017. He denies any marijuana or street drug use. He states he drinks alcohol socially. He utilizes walker to transfer. He denies any service or travel. 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 Past Drug Use History: None Reported - Past Family History Father Family Medical History: Unable to Obtain Mother Family Medical History: Unable to Obtain Sister(s) Family Medical History: Cancer Medications and Allergies Home Medications Medication Instructions Recorded Confirmed Type Acetaminophen Tab [Tylenol] 650 mg PO Q4H PRN 09/01/19 09/01/19 History Aspirin [[place] Aspirin EC] 81 mg PO DAILY@1700 09/01/19 09/01/19 History Benzocaine/Menthol Lozeng [Cepacol 1 each MUCOUS MEM Q2H PRN 09/01/19 09/01/19 History lozenge] Bisacodyl [Dulcolax] 5 mg PO DAILY@0700 09/01/19 09/01/19 History Bumetanide 2 mg PO BID@0800,1300 09/01/19 09/01/19 History Carvedilol [Coreg] 3.125 mg PO BID@0700,1700 09/01/19 09/01/19 History Chlorhexidine Gluconate [Hibiclens] 1 applic TOPICAL Q7D 09/01/19 09/01/19 History Cholecalciferol [Vitamin D3 (25 1,000 unit PO BID@0700,1700 09/01/19 09/01/19 History Mcg = 1000 Iu)] Clindamycin [Cleocin] 450 mg PO Q6H 09/01/19 09/01/19 History Fluticasone Nasal [place] [Flonase 2 spr EA NOSTRIL DAILY@0700 09/01/19 09/01/19 History Nasal [place]] HYDROcodone/APAP 10-325MG [[place] 1 tab PO Q6H PRN 09/01/19 09/01/19 History 10-325] Hydraguard Lotion 1 applic TOPICAL TID 09/01/19 09/01/19 History Insulin Glargine,Hum.rec.anlog 50 unit SQ HS 09/01/19 09/01/19 History [Lantus Solostar] Insulin Lispro [humaLOG Kwikpen] 15 unit SQ TID 09/01/19 09/01/19 History Ketoconazole 2% Shampoo [Nizoral] 1 applic TOPICAL TUTHSA 09/01/19 09/01/19 History L.acidoph,Paracasei, B.lactis 2 cap PO BID@0900,2100 09/01/19 09/01/19 History [Probiotic] Loratadine 10 mg PO DAILY@1800 09/01/19 09/01/19 History Losartan [Cozaar] 25 mg PO DAILY@1200 09/01/19 09/01/19 History Mag Hydrox/Aluminum Hyd/Simeth 10 ml PO Q4H PRN 09/01/19 09/01/19 History [Mylanta Maximum Strength Liq] Magnesium Hydroxide [Milk of 2,400 mg PO DAILY PRN 09/01/19 09/01/19 History Magnesia] Menthol [Nice Cough Drops] 1 drop BUCCAL Q2H PRN 09/01/19 09/01/19 History Metolazone [Zaroxolyn] 5 mg PO MOWEFR 09/01/19 09/01/19 History Nicotine Polacrilex [Nicotine 4 mg BUCCAL Q6H PRN 09/01/19 09/01/19 History Lozenge] Nystatin 100,000 Unit/gm Powd 1 applic TOPICAL TID 09/01/19 09/01/19 History [Mycostatin Powder] Omeprazole [PriLOSEC] 20 mg PO BID@0600,1600 09/01/19 09/01/19 History Potassium Chloride ER [K-Dur 20] 40 meq PO TID 09/01/19 09/01/19 History Pregabalin [Lyrica] 100 mg PO TID@0700,1300,2100 09/01/19 09/01/19 History Sodium Chloride [Saline Nasal 1 spray EA NOSTRIL Q2H PRN 09/01/19 09/01/19 Hi story [place]] Spironolactone [Aldactone] 25 mg PO DAILY@0800 09/01/19 09/01/19 History Allergies Allergy/AdvReac Type Severity Reaction Status Date / Time adhesive tape Allergy Rash/Hives Verified 09/01/19 23:26 Physical Exam Vitals: Vital Signs Temp Pulse Pulse Resp BP Pulse Ox 09/02/19 21:21 97.6 F 96 18 115/64 92 L 02/07/20 11:42 99 16 101/56 92 L 09/02/19 05:12 98.9 F 90 16 120/60 90 L 09/02/19 00:00 16 09/01/19 23:00 98.2 F 107 H 20 135/65 91 L Intake and Output 09/02/19 09/02/19 09/02/19 06:59 14:59 22:59 Intake Total 530 50 Output Total 1000 300 Balance 530 -950 -300 Intake: Intake, IV Titration 50 50 Amount ceFAZolin 1,000 mg In 50 50 Sodium Chloride 0.9% 50 ml @ 100 mls/hr IVPB Q8HR [facility] Rx#:[id number] Oral 480 Output: Urine 1000 300 Other: Voiding Method Indwelling Catheter Indwelling Catheter Indwelling Catheter GENERAL DESCRIPTION: Middle-aged male lying in bed, no distress. No tachypnea or accessory muscle of respiration use. HEENT: Shows Pallor , no scleral icterus. Oral mucous membrane is dry. NECK: Trachea central, no thyromegaly. LUNGS: Unlabored breathing. Clear to auscultation anteriorly. No wheeze or crackle. HEART: S1, S2, regular rate and rhythm. ABDOMEN: Soft, no tenderness , guarding or rigidity EXTREMITIES: Patient had did have significant swelling of the legs and excoriation of the bilateral gluteal area with more superficial ulceration and some foul-smelling drainage patient did have a extensive cutaneous candidiasis of bilateral groin area sKIN: No rash, no masses palpable. NEUROLOGICAL: The patient is awake, alert, oriented x3, mood and affect normal. Results CBC & Chem 7: 09/02/19 08:50 09/02/19 08:50 Labs: Abnormal Lab Results - Last 24 Hours (Table) 09/02/19 09/02/19 09/02/19 Range/Units 07:16 08:50 08:50 WBC 16.1 H (3.8-10.6) k/uL RBC 3.47 L (4.30-5.90) m/uL Hgb 10.8 L (13.0-17.5) gm/dL Hct 32.2 L (39.0-53.0) % Neutrophils # 12.8 H (1.3-7.7) k/uL Basophils # 0.3 H (0-0.2) k/uL ESR (0-15) mm/hr Sodium 136 L (137-145) mmol/L Chloride 93 L (98-107) mmol/L Carbon Dioxide 33 H (22-30) mmol/L BUN 26 H (9-20) mg/dL Glucose 139 H (74-99) mg/dL POC Glucose (mg/dL) 140 H (75-99) mg/dL C-Reactive Protein (<10.0) mg/L Albumin 3.1 L (3.5-5.0) g/dL 09/02/19 09/02/19 09/02/19 Range/Units 11:44 15:23 15:23 WBC (3.8-10.6) k/uL RBC (4.30-5.90) m/uL Hgb (13.0-17.5) gm/dL Hct (39.0-53.0) % Neutrophils # (1.3-7.7) k/uL Basophils # (0-0.2) k/uL ESR 127 H (0-15) mm/hr Sodium (137-145) mmol/L Chloride (98-107) mmol/L Carbon Dioxide (22-30) mmol/L BUN (9-20) mg/dL Glucose (74-99) mg/dL POC Glucose (mg/dL) 165 H (75-99) mg/dL C-Reactive Protein 222.4 H (<10.0) mg/L Albumin (3.5-5.0) g/dL 09/02/19 09/02/19 Range/Units 17:05 20:28 WBC (3.8-10.6) k/uL RBC (4.30-5.90) m/uL Hgb (13.0-17.5) gm/dL Hct (39.0-53.0) % Neutrophils # (1.3-7.7) k/uL Basophils # (0-0.2) k/uL ESR (0-15) mm/hr Sodium (137-145) mmol/L Chloride (98-107) mmol/L Carbon Dioxide (22-30) mmol/L BUN (9-20) mg/dL Glucose (74-99) mg/dL POC Glucose (mg/dL) 133 H 181 H (75-99) mg/dL C-Reactive Protein (<10.0) mg/L Albumin (3.5-5.0) g/dL Assessment and Plan Assessment: 1-patient with extensive cellulitis of bilateral gluteal and posterior thigh area likely from gram-positive skin lina clinically doubt gram-negative infection 2-extensive cutaneous candidiasis of bilateral groin area (1) Cellulitis, gluteal Current Visit: Yes Status: Acute Code(s): L03.317 - CELLULITIS OF BUTTOCK SNOMED Code(s): 24059053 (2) Candidiasis, skin or nails Current Visit: Yes Status: Acute Code(s): B37.2 - CANDIDIASIS OF SKIN AND NAIL SNOMED Code(s): 23136296 Plan: 1-cefazolin 2 g every 8 hour and discontinue Zosyn 2-Diflucan 200 g p.o. daily and nystatin powder to bilateral groin area 3-local wound care per the wound care nurse 4-keep the area dry and off pressure advised speciality bed We will follow on clinical condition and cultures to further adjust medication if needed Thank you for this consultation we will follow the patient along with you Time with Patient: Greater than 30
[2019-09-03] MEDS: HEPARIN SODIUM,PORCINE 5,000 UNIT/ML 1 ML VIAL SQ SCH ×4 (00:21→23:24)
[2019-09-03] MEDS: HYDROcodone/APAP 10-325MG 1 EACH TAB PO PRN ×5 (00:25→23:18)
[2019-09-03 01:42] LABS: HIV 1 AB Non-Reactive (Non-Reactive); HIV 2 AB Non-Reactive (Non-Reactive); HIV AB P24 Non-Reactive (Non-Reactive); HIV P24 AG Non-Reactive (Non-Reactive)
[2019-09-03] MEDS: MENTHOL (NICE) LOZENGE MUCOUS MEM PRN (04:02)
[2019-09-03] MEDS: metroNIDAZOLE-NS PMX 500 MG in SALINE 1 100ML.BAG IVPB SCH ×3 (05:31→21:24)
[2019-09-03 07:09] LABS: Glucose,Whole Blood 96 mg/dL (75-99)
[2019-09-03] MEDS: POTASSIUM CHLORIDE ER 20 MEQ TAB.ER PO SCH ×3 (07:46→21:24)
[2019-09-03] MEDS: LACTOBACILLUS ACIDOPH & BULGAR 1 EACH PACKET PO SCH ×2 (07:46→21:23)
[2019-09-03] MEDS: BUMETANIDE 1 MG TAB PO SCH ×2 (07:46→13:14)
[2019-09-03] MEDS: CHOLECALCIFEROL 1,000 UNIT TAB PO SCH ×2 (07:47→16:52)
[2019-09-03] MEDS: CARVEDILOL 3.125 MG TAB PO SCH ×2 (07:47→16:52)
[2019-09-03] MEDS: PREGABALIN 100 MG CAP PO SCH ×6 (07:47→22:19)
[2019-09-03] MEDS: SPIRONOLACTONE 25 MG TAB PO SCH (07:47)
[2019-09-03] MEDS: BISACODYL 5 MG TABLET.DR PO SCH (07:47)
[2019-09-03] MEDS: FLUTICASONE 50MCG/SPRAY NASAL 16GM EA NOSTRIL SCH (07:48)
[2019-09-03] MEDS: PANTOPRAZOLE 40 MG TABLET PO SCH (07:48)
[2019-09-03] MEDS: INSULIN ASPART (NovoLOG) 100 UNIT/ML VIAL SQ SCH ×3 (07:50→17:19)
[2019-09-03] MEDS: NYSTATIN 100,000 UNIT/GM POWD 15 GM TOPICAL SCH ×3 (07:50→21:24)
[2019-09-03] MEDS: KETOCONAZOLE 2% SHAMPOO 1 APPLIC/ML TOPICAL SCH (07:51)
[2019-09-03] MEDS: HYDROPHILIC CREAM 180 GM TUBE TOPICAL SCH (07:51)
[2019-09-03] MEDS: PETROLAT,WHITE/LAN/8-HYDROXYQU 227 GM OINT TOPICAL SCH (07:59)
[2019-09-03] MEDS: FLUCONAZOLE IN NACL,ISO-OSM 200 MG in SALINE 1 100ML.BAG IVPB SCH (09:24)
[2019-09-03] MEDS: HYDROmorphone 0.5 MG/0.5 ML SYRINGE IVP PRN (11:02)
[2019-09-03 11:11] LABS: Glucose,Whole Blood 85 mg/dL (75-99)
[2019-09-03] MEDS: LOSARTAN 25 MG TAB PO SCH (13:15)
--- NOTE | 2019-09-03 14:14 | PN ---
PROGRESS NOTE DATE OF SERVICE: 09/03/2019. REASON FOR FOLLOWUP: 1. Bilateral gluteal and thigh cellulitis. 2. Groin area cutaneous candidiasis. INTERVAL HISTORY: The patient is currently afebrile, has been breathing comfortably. Denies having any chest pain. Has some cough. No nausea, vomiting, abdominal pain, or any worsening pain to bilateral gluteal or thigh wound area. PHYSICAL EXAMINATION: Blood pressure 118/57 with a pulse of 83 temperature 97.6. He is 92% on room air. General description is a middle-aged male lying in bed in no distress. RESPIRATORY SYSTEM: Unlabored breathing, clear to auscultation anteriorly. HEART: S1, S2. Regular rate and rhythm. ABDOMEN: Soft, no tenderness. Bilateral groin and gluteal area wound has slightly dried out. Redness slightly decreased. No drainage. LABS: Cultures currently pending. DIAGNOSTIC IMPRESSION AND PLAN: 1. Patient with bilateral bilateral gluteal and posterior thigh wound with cellulitis. Culture is currently pending. Patient to continue with cefazolin. Local care to continue with Triad cream, keep the area dry and off pressure. 2. The patient with cutaneous candidiasis, especially groin area. Continue nystatin powder and fluconazole and monitor clinical course closely. MMODL / IJN: [id number] /
[2019-09-03] MEDS: HYDROmorphone 1 MG/ML 1 ML SYRINGE IVP PRN ×2 (16:51→20:19)
[2019-09-03] MEDS: LORATADINE 10 MG TAB PO SCH (16:52)
[2019-09-03] MEDS: ASPIRIN 81 MG PO SCH (16:52)
[2019-09-03 17:13] LABS: Glucose,Whole Blood 108 mg/dL (75-99)
--- NOTE | 2019-09-03 17:26 | PN ---
PROGRESS NOTE DATE OF SERVICE: 09/03/2019 This 59-year-old gentleman with a past medical history of multiple medical problems was admitted with diffuse significant ulceration with foul-smelling discharge extensively. The patient was started on IV broad-spectrum, IV fluids. Surgery also will be consulted for possible debridement. As mentioned earlier, patient had extensive foul smelling ulcerations and macerated skin including the posterior part of the right leg. The patient apparently was evaluated at [facility] and refused some definitive procedure because of the high risk involved. Currently the patient is on broad-spectrum IV antibiotics and the C-reactive protein is elevated up to 224 WBC. ESR is 127. All the cultures are negative so far. The previous culture showed multiple organisms including Proteus and anaerobic infections and Pseudomonas also. PAST MEDICAL HISTORY: Reviewed. REVIEW OF SYSTEMS: Cardiovascular system: No angina or palpitations. RESPIRATORY: As mentioned earlier. GI no nausea or vomiting. no dysuria. CENTRAL NERVOUS SYSTEM: No numbness or weakness. CURRENT MEDICATIONS: Current medications are reviewed and include: 1. Tylenol p.r.n. 2. [place] 10 mg q.8 p.r.n. 3. Xanax. 4. Aspirin 81 mg. 5. Cepacol. 6. Dulcolax. 7. Bumex 2 mg p.o. b.i.d. 8. Coreg 3.125 mg. 9. Cefazolin 2 g IV q.8h. 10.Vitamin D3. 11.Fluconazole. 12.Heparin. 13.Dilaudid. 14.Hydroxyzine. 15.Levemir. 16.Nizoral. 17.Lactinex. 18.Claritin. 19.Zaroxolyn. 20.Flagyl IV. 21.Nystatin. 22.Protonix. 23.Lyrica. 24.Aldactone. 25.Restoril. 26.Doses reviewed. PHYSICAL EXAM: Patient is alert, oriented x3. Pulse 83. Blood pressure 118/56, respiration 16, temperature 97.6, pulse ox 98% on room air. HEENT: Conjunctivae normal. Neck: Neck is obese. Cardiovascular systems: S1, S2 muffled. Respirations: Breath sounds diminished in the bases. A few scattered rhonchi. No crackles. ABDOMEN: Soft. Obese. LEGS: Bilateral leg edema. Significant ulceration as mentioned earlier with dry emaciated skin with diffuse scales which the patient is shedding on the floor. NERVOUS SYSTEM: Diffusely weak. SKIN as mentioned earlier. JOINTS: No active deforming arthropathy. LAB STUDIES: WBC 16.2, hemoglobin 10.8. Sodium 136. ASSESSMENT: 1. Diffuse significant ulcerations with foul-smelling discharge in the sacral area as well as the posterior aspect of the thigh and leg with possible sepsis, present on admission. 2. Previous culture multiple organisms include Proteus, Pseudomonas, and anaerobic bacilli. 3. Severe pain secondary to #1. 4. Increased WBC. 5. Anemia, normocytic anemia of chronic disease. 6. Hyponatremia. 7. Obesity with body mass index of 50.3. 8. Hypoalbuminemia with mild to moderate protein calorie malnutrition. 9. History of asthma. 10.History of coronary artery disease. 11.History of congestive heart failure. 12.Chronic obstructive pulmonary disease. 13.History of noncompliance. 14.Diabetes type 2. 15.History of myocardial infarction. 16.History of prostate cancer. 17.History of sleep apnea. 18.History of coronary artery disease/stent. 19.History of anxiety. 20.Remote history of nicotine dependence. 21.Anemia, normocytic anemia of chronic disease. 22.Increased WBC. 23.Hyponatremia. 24.FULL CODE. RECOMMENDATIONS AND DISCUSSION: In this 59-year-old gentleman who presented with multiple complex medical issues, we will monitor the patient closely. Recommend to continue current medications, management and symptomatic treatment. Repeat labs. Continue the broad-spectrum IV antibiotics. Dr. Escamilla's input appreciated. I would also recommend surgical evaluation and guarded prognosis because of multiple complex medical issues. Further recommendations to follow. Discussed with the patient at length. MMODL / IJN: [id number] /
[2019-09-03 20:07] LABS: Glucose,Whole Blood 131 mg/dL (75-99)
[2019-09-03] MEDS: INSULIN DETEMIR (LEVEMIR) 100 UNIT/ML SYR SQ SCH (21:35)
[2019-09-04] MEDS: HYDROmorphone 1 MG/ML 1 ML SYRINGE IVP PRN ×5 (00:23→20:42)
[2019-09-04] MEDS: MENTHOL (NICE) LOZENGE MUCOUS MEM PRN (00:53)
[2019-09-04 02:11] LABS: Glucose,Whole Blood 107 mg/dL (75-99)
[2019-09-04] MEDS: metroNIDAZOLE-NS PMX 500 MG in SALINE 1 100ML.BAG IVPB SCH ×3 (05:25→20:44)
[2019-09-04] MEDS: HYDROcodone/APAP 10-325MG 1 EACH TAB PO PRN ×2 (06:11→16:37)
[2019-09-04 07:12] LABS: Glucose,Whole Blood 115 mg/dL (75-99)
[2019-09-04] MEDS: INSULIN ASPART (NovoLOG) 100 UNIT/ML VIAL SQ SCH ×3 (07:39→17:54)
[2019-09-04] MEDS: HEPARIN SODIUM,PORCINE 5,000 UNIT/ML 1 ML VIAL SQ SCH ×3 (07:40→23:30)
[2019-09-04] MEDS: CARVEDILOL 3.125 MG TAB PO SCH ×2 (08:21→16:37)
[2019-09-04] MEDS: PANTOPRAZOLE 40 MG TABLET PO SCH (08:21)
[2019-09-04] MEDS: FLUTICASONE 50MCG/SPRAY NASAL 16GM EA NOSTRIL SCH (08:21)
[2019-09-04] MEDS: BISACODYL 5 MG TABLET.DR PO SCH (08:21)
[2019-09-04] MEDS: CHOLECALCIFEROL 1,000 UNIT TAB PO SCH ×2 (08:21→16:37)
[2019-09-04] MEDS: PREGABALIN 100 MG CAP PO SCH ×4 (08:21→20:44)
[2019-09-04] MEDS: POTASSIUM CHLORIDE ER 20 MEQ TAB.ER PO SCH ×3 (08:22→20:43)
[2019-09-04] MEDS: LACTOBACILLUS ACIDOPH & BULGAR 1 EACH PACKET PO SCH ×2 (08:22→20:40)
[2019-09-04] MEDS: SPIRONOLACTONE 25 MG TAB PO SCH (08:22)
[2019-09-04] MEDS: BUMETANIDE 1 MG TAB PO SCH ×2 (08:22→12:37)
[2019-09-04] MEDS: HYDROPHILIC CREAM 180 GM TUBE TOPICAL SCH (08:31)
[2019-09-04] MEDS: NYSTATIN 100,000 UNIT/GM POWD 15 GM TOPICAL SCH ×3 (08:31→20:44)
[2019-09-04] MEDS: PETROLAT,WHITE/LAN/8-HYDROXYQU 227 GM OINT TOPICAL SCH (08:31)
[2019-09-04 09:17] LABS: HCT 34.5 % (39.0-53.0); HGB 11.3 gm/dL (13.0-17.5); MCH 30.7 pg (25.0-35.0); MCHC 32.7 g/dL (31.0-37.0); MCV 93.8 fL (80.0-100.0); Mean Platelet Volume 7.9; Platelet Count 437 k/uL (150-450); Poikilocytosis Slight; RBC 3.68 m/uL (4.30-5.90); RDW 14.8 % (11.5-15.5); WBC 16.6 k/uL (3.8-10.6)
[2019-09-04 09:26] LABS: African American GFR (CKD) >90 (>60 ml/min/1.73 sqM); Anion Gap 12 mmol/L; Blood Urea Nitrogen 19 mg/dL (9-20); Calcium 8.9 mg/dL (8.4-10.2); Carbon Dioxide 30 mmol/L (22-30); Chloride 95 mmol/L (98-107); Glucose 102 mg/dL (74-99); Non-African American GFR(CKD) 89 (>60 ml/min/1.73 sqM); Potassium 4.1 mmol/L (3.5-5.1); Sodium 137 mmol/L (137-145)
[2019-09-04 09:45] LABS: Eosinophils # (M) 0.83 k/uL (0-0.7); Lymphocytes # (M) 1.83 k/uL (1.0-4.8); Monocytes # (M) 1.16 k/uL (0-1.0); Neutrophils # (M) 12.78 k/uL (1.3-7.7); Neutrophils % (M) 77 %; Nucleated Red Blood Cells 0 /100 WBC (0-0); Poikilocytosis (M) Present; Rouleaux Present; Total Cells Counted 100
[2019-09-04] MEDS: FLUCONAZOLE IN NACL,ISO-OSM 200 MG in SALINE 1 100ML.BAG IVPB SCH (10:29)
--- NOTE | 2019-09-04 10:54 | P.GSCN ---
History of Present Illness Consult date: 09/04/19 Reason for Consult: Right leg lymphedema History of present illness: Is a 59-year-old male with multiple medical problems. Patient has no sign ificant lymphedema of bilateral lower extremity. Patient also has developed significant right thigh swelling due to chronic lymphedema. Patient has significant skin breakdown on his posterior right thigh. The patient without a [facility]. Patient is extremely high risk surgical candidate. Past Medical History Past Medical History: Asthma, Coronary Artery Disease (CAD), Heart Failure, COPD, Diabetes Mellitus, Myocardial Infarction ([place]), Prostate Disorder, Skin Disorder, Sleep Apnea/CPAP/BIPAP Additional Past Medical History / Comment(s): Bilateral lower extremity ulcers, edema left lower legs, edema and "tumor" rt leg, diff with ambulation, Last Myocardial Infarction Date:: 1999 History of Any Multi-Drug Resistant Organisms: None Reported Past Surgical History: Heart Catheterization With Stent, Tonsillectomy Additional Past Surgical History / Comment(s): chest tube in for collapsed lung, one cardiac stent, Past Anesthesia/Blood Transfusion Reactions: No Reported Reaction Date of Last Stent Placement:: 1999 Past Psychological History: Anxiety Additional Psychological History / Comment(s): . Smoking Status: Former smoker Past Alcohol Use History: None Reported Additional Past Alcohol Use History / Comment(s): Patient was a smoker of 2 packs per day for 40 years and quit in 2017. He denies any marijuana or street drug use. He states he drinks alcohol socially. He utilizes walker to transfer. He denies any service or travel. 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 Past Drug Use History: None Reported - Past Family History Father Family Medical History: Unable to Obtain Mother Family Medical History: Unable to Obtain Sister(s) Family Medical History: Cancer Medications and Allergies Home Medications Medication Instructions Recorded Confirmed Type Acetaminophen Tab [Tylenol] 650 mg PO Q4H PRN 09/01/19 09/01/19 History Aspirin [[place] Aspirin EC] 81 mg PO DAILY@1700 09/01/19 09/01/19 History Benzocaine/Menthol Lozeng [Cepacol 1 each MUCOUS MEM Q2H PRN 09/01/19 09/01/19 History lozenge] Bisacodyl [Dulcolax] 5 mg PO DAILY@0700 09/01/19 09/01/19 History Bumetanide 2 mg PO BID@0800,1300 09/01/19 09/01/19 History Carvedilol [Coreg] 3.125 mg PO BID@0700,1700 09/01/19 09/01/19 History Chlorhexidine Gluconate [Hibiclens] 1 applic TOPICAL Q7D 09/01/19 09/01/19 History Cholecalciferol [Vitamin D3 (25 1,000 unit PO BID@0700,1700 09/01/19 09/01/19 History Mcg = 1000 Iu)] Clindamycin [Cleocin] 450 mg PO Q6H 09/01/19 09/01/19 History Fluticasone Nasal [place] [Flonase 2 spr EA NOSTRIL DAILY@0700 09/01/19 09/01/19 History Nasal [place]] HYDROcodone/APAP 10-325MG [[place] 1 tab PO Q6H PRN 09/01/19 09/01/19 History 10-325] Hydraguard Lotion 1 applic TOPICAL TID 09/01/19 09/01/19 History Insulin Glargine,Hum.rec.anlog 50 unit SQ HS 09/01/19 09/01/19 History [Lantus Solostar] Insulin Lispro [humaLOG Kwikpen] 15 unit SQ TID 09/01/19 09/01/19 History Ketoconazole 2% Shampoo [Nizoral] 1 applic TOPICAL TUTHSA 09/01/19 09/01/19 History L.acidoph,Paracasei, B.lactis 2 cap PO BID@0900,2100 09/01/19 09/01/19 History [Probiotic] Loratadine 10 mg PO DAILY@1800 09/01/19 09/01/19 History Losartan [Cozaar] 25 mg PO DAILY@1200 09/01/19 09/01/19 History Mag Hydrox/Aluminum Hyd/Simeth 10 ml PO Q4H PRN 09/01/19 09/01/19 History [Mylanta Maximum Strength Liq] Magnesium Hydroxide [Milk of 2,400 mg PO DAILY PRN 09/01/19 09/01/19 History Magnesia] Menthol [Nice Cough Drops] 1 drop BUCCAL Q2H PRN 09/01/19 09/01/19 History Metolazone [Zaroxolyn] 5 mg PO MOWEFR 09/01/19 09/01/19 History Nicotine Polacrilex [Nicotine 4 mg BUCCAL Q6H PRN 09/01/19 09/01/19 History Lozenge] Nystatin 100,000 Unit/gm Powd 1 applic TOPICAL TID 09/01/19 09/01/19 History [Mycostatin Powder] Omeprazole [PriLOSEC] 20 mg PO BID@0600,1600 09/01/19 09/01/19 History Potassium Chloride ER [K-Dur 20] 40 meq PO TID 09/01/19 09/01/19 History Pregabalin [Lyrica] 100 mg PO TID@0700,1300,2100 09/01/19 09/01/19 History Sodium Chloride [Saline Nasal 1 spray EA NOSTRIL Q2H PRN 09/01/19 09/01/19 History [place]] Spironolactone [Aldactone] 25 mg PO DAILY@0800 09/01/19 09/01/19 History Allergies Allergy/AdvReac Type Severity Reaction Status Date / Time adhesive tape Allergy Rash/Hives Verified 09/01/19 23:26 Surgical - Exam Vital Signs Temp Pulse Resp BP Pulse Ox 98.2 F 107 H 20 135/65 91 L 09/01/19 23:00 09/01/19 23:00 09/01/19 23:00 09/01/19 23:00 09/01/19 23:00 - Integumentary Chronic lymphedema of bilateral x-rays. There is significant swelling of the right medial thigh which extends posteriorly. There is skin breakdown along the posterior aspect of his right thigh due to pressure ischemia. Results - Labs 09/04/19 08:05 09/04/19 08:05 Abnormal Lab Results - Last 24 Hours (Table) 09/03/19 09/03/19 09/04/19 Range/Units 17:12 20:05 02:09 WBC (3.8-10.6) k/uL RBC (4.30-5.90) m/uL Hgb (13.0-17.5) gm/dL Hct (39.0-53.0) % Neutrophils # (Manual) (1.3-7.7) k/uL Monocytes # (Manual) (0-1.0) k/uL Eosinophils # (Manual) (0-0.7) k/uL Chloride (98-107) mmol/L Glucose (74-99) mg/dL POC Glucose (mg/dL) 108 H 131 H 107 H (75-99) mg/dL 09/04/19 09/04/19 09/04/19 Range/Units 07:11 08:05 08:05 WBC 16.6 H (3.8-10.6) k/uL RBC 3.68 L (4.30-5.90) m/uL Hgb 11.3 L (13.0-17.5) gm/dL Hct 34.5 L (39.0-53.0) % Neutrophils # (Manual) 12.78 H (1.3-7.7) k/uL Monocytes # (Manual) 1.16 H (0-1.0) k/uL Eosinophils # (Manual) 0.83 H (0-0.7) k/uL Chloride 95 L (98-107) mmol/L Glucose 102 H (74-99) mg/dL POC Glucose (mg/dL) 115 H (75-99) mg/dL Microbiology - Last 24 Hours (Table) 09/02/19 Unknown Gram Stain - Preliminary Buttock Wound Culture - Preliminary Gram Neg Bacilli 09/02/19 15:23 Blood Culture - Preliminary Blood No Growth after 24 hours Diabetes panel 09/04/19 Range/Units 08:05 Sodium 137 (137-145) mmol/L Potassium 4.1 (3.5-5.1) mmol/L Chloride 95 L (98-107) mmol/L Carbon Dioxide 30 (22-30) mmol/L BUN 19 (9-20) mg/dL Creatinine 0.94 (0.66-1.25) mg/dL Glucose 102 H (74-99) mg/dL Calcium 8.9 (8.4-10.2) mg/dL Calcium panel 09/04/19 Range/Units 08:05 Calcium 8.9 (8.4-10.2) mg/dL Pituitary panel 09/04/19 Range/Units 08:05 Sodium 137 (137-145) mmol/L Potassium 4.1 (3.5-5.1) mmol/L Chloride 95 L (98-107) mmol/L Carbon Dioxide 30 (22-30) mmol/L BUN 19 (9-20) mg/dL Creatinine 0.94 (0.66-1.25) mg/dL Glucose 102 H (74-99) mg/dL Calcium 8.9 (8.4-10.2) mg/dL Adrenal panel 09/04/19 Range/Units 08:05 Sodium 137 (137-145) mmol/L Potassium 4.1 (3.5-5.1) mmol/L Chloride 95 L (98-107) mmol/L Carbon Dioxide 30 (22-30) mmol/L BUN 19 (9-20) mg/dL Creatinine 0.94 (0.66-1.25) mg/dL Glucose 102 H (74-99) mg/dL Calcium 8.9 (8.4-10.2) mg/dL Assessment and Plan Assessment: Chronic leg wounds. Patient received local wound care. No surgical intervention is planned.
[2019-09-04 11:59] VITALS: BMI 50.3
[2019-09-04 12:13] LABS: Glucose,Whole Blood 140 mg/dL (75-99)
[2019-09-04] MEDS: LOSARTAN 25 MG TAB PO SCH (12:32)
[2019-09-04] MEDS: LORATADINE 10 MG TAB PO SCH (16:37)
[2019-09-04 17:22] LABS: Glucose,Whole Blood 123 mg/dL (75-99)
[2019-09-04] MEDS: ASPIRIN 81 MG PO SCH (18:00)
[2019-09-04 20:18] LABS: Glucose,Whole Blood 180 mg/dL (75-99)
[2019-09-04] MEDS: INSULIN DETEMIR (LEVEMIR) 100 UNIT/ML SYR SQ SCH (20:40)
[2019-09-04] MEDS: CEFEPIME 2 GM in SODIUM CHLORIDE 0.9% 100 ML IVPB SCH (23:29)
--- NOTE | 2019-09-05 00:31 | PN ---
PROGRESS NOTE DATE OF SERVICE: 09/04/2019 This 59-year-old gentleman who was admitted with significant ulcerations and foul- smelling discharge. No cellulitis is being closely monitored at this time. The patient on broad IV antibiotics. Dr. Biggs is following the patient closely. The patient also complains of severe pain and is getting IV pain medications. Dr. Biggs has followed the patient and the patient was deemed extremely high surgical candidate. No surgical intervention planned by Dr. Biggs. As far as the cultures are concerned, the patient had gram-negative bacilli grown from the wound. The final cultures are pending at this time. No chest pain. No palpitation. PHYSICAL EXAM: Alert and oriented x3. Pulse 83. Blood pressure 111/60, respiration 18, temperature 97.7, pulse ox 94% on room air. HEENT: Conjunctivae normal. NECK: No JVD. CARDIOVASCULAR: S1, S2 muffled. RESPIRATIONS: Breath sounds diminished in the bases. No rhonchi. No crackles. ABDOMEN: Soft, obese, nontender. LEGS: Significant ulcerations of the posterior part and as well as the pubic area with foul-smelling discharge. Some bleeding is also present. NERVOUS SYSTEM: Diffusely weak. LABS: WBC 16.6, hemoglobin 11.3, sodium 137, potassium 4.1. ASSESSMENT: 1. Diffuse significant ulceration with foul-smelling discharge in the sacral area as well as the posterior aspect of the thigh and leg with possible sepsis, present on admission. 2. Previous culture showing multiple organisms including Proteus, Pseudomonas, and anaerobic bacilli. 3. Severe pain secondary to number one. 4. Increased WBC. 5. Anemia, normocytic anemia of chronic disease. 6. Hyponatremia. 7. Obesity with body mass index of 50.3. 8. Hypoalbuminemia mild to moderate protein calorie malnutrition. 9. History of asthma. 10.History of coronary artery disease. 11.History of congestive heart failure. 12.History of chronic obstructive pulmonary disease. 13.History of noncompliance. 14.Diabetes mellitus type 2. 15.History of myocardial infarction. 16.History of prostate cancer. 17.History of sleep apnea. 18.History of coronary artery disease, stent. 19.History of anxiety. 20.Remote history of nicotine dependence. 21.Anemia, normocytic anemia of chronic disease. 22.Increased WBC. 23.Hyponatremia. 24.FULL CODE. RECOMMENDATIONS AND DISCUSSION: Recommend to continue current medications, management and symptomatic treatment. Continue the antibiotics. As mentioned earlier, Dr. Biggs considers the patient as a high risk candidate for any procedure. We will continue to monitor. Follow the final cultures. Continue the antibiotic of now. Guarded prognosis. Further recommendations to follow. MMADAL / IJN: [id number] /
--- NOTE | 2019-09-05 01:01 | PN ---
PROGRESS NOTE DATE OF SERVICE: 09/04/2019 REASON FOR FOLLOWUP: 1. Bilateral gluteal cellulitis. 2. Groin cutaneous candidiasis. INTERVAL HISTORY: The patient is currently afebrile, has been breathing comfortably. Denies having any chest pain, shortness of breath or cough. No nausea, vomiting or diarrhea. PHYSICAL EXAMINATION: Blood pressure is 111/50 with a pulse of 83, temperature of 98. He is 94% on room air. General description is a middle aged male lying in bed in no distress. Respiratory system: Unlabored breathing. Clear to auscultation anteriorly. Heart S1, S2. Regular rate and rhythm. Abdomen soft, no tenderness. LABS: Hemoglobin is 11.8, white count 16.6, BUN of 19, creatinine 0.941. Blood culture showing gram-negative bacilli. DIAGNOSTIC IMPRESSION AND PLAN: 1. Patient with bilateral gluteal wound and cellulitis. Culture now showing gram- negative bacilli. Antibiotic will be adjusted to cefepime 2 g q.12 hours. Discontinue the cefazolin. Local care to continue as ordered. 2. The patient with groin area cutaneous candidiasis to continue with nystatin powder and Diflucan. Continue supportive care. MMODL / IJN: [id number] /
[2019-09-05] MEDS: HYDROcodone/APAP 10-325MG 1 EACH TAB PO PRN ×4 (01:05→20:35)
[2019-09-05] MEDS: HYDROmorphone 1 MG/ML 1 ML SYRINGE IVP PRN (03:05)
[2019-09-05] MEDS: metroNIDAZOLE-NS PMX 500 MG in SALINE 1 100ML.BAG IVPB SCH ×3 (06:03→22:22)
[2019-09-05 07:16] LABS: Glucose,Whole Blood 152 mg/dL (75-99)
[2019-09-05 08:16] LABS: Basophils # (A) 0.3 k/uL (0-0.2); Basophils % (A) 2 %; Eosinophils # (A) 0.8 k/uL (0-0.7); Eosinophils % (A) 5 %; HCT 34.2 % (39.0-53.0); HGB 11.8 gm/dL (13.0-17.5); Lymphocytes # (A) 1.2 k/uL (1.0-4.8); Lymphocytes % (A) 8 %; MCH 32.1 pg (25.0-35.0); MCHC 34.4 g/dL (31.0-37.0); MCV 93.2 fL (80.0-100.0); Mean Platelet Volume 7.9; Monocytes # (A) 1.2 k/uL (0-1.0); Monocytes % (A) 8 %; Neutrophils # (A) 12.3 k/uL (1.3-7.7); Neutrophils % (A) 76 %; Platelet Count 436 k/uL (150-450); Poikilocytosis Slight; RBC 3.67 m/uL (4.30-5.90); RDW 14.8 % (11.5-15.5)
[2019-09-05 08:43] LABS: African American GFR (CKD) >90 (>60 ml/min/1.73 sqM); Anion Gap 13 mmol/L; Blood Urea Nitrogen 21 mg/dL (9-20); Calcium 9.2 mg/dL (8.4-10.2); Carbon Dioxide 28 mmol/L (22-30); Chloride 95 mmol/L (98-107); Glucose 143 mg/dL (74-99); Non-African American GFR(CKD) 89 (>60 ml/min/1.73 sqM); Potassium 4.3 mmol/L (3.5-5.1); Sodium 136 mmol/L (137-145)
[2019-09-05] MEDS ORDERED: CHLORHEXIDINE GLUCONATE TOPICAL SCH (09:00)
[2019-09-05] MEDS: INSULIN ASPART (NovoLOG) 100 UNIT/ML VIAL SQ SCH ×3 (09:19→17:26)
[2019-09-05] MEDS: PANTOPRAZOLE 40 MG TABLET PO SCH (09:24)
[2019-09-05] MEDS: CEFEPIME 2 GM in SODIUM CHLORIDE 0.9% 100 ML IVPB SCH (09:24)
[2019-09-05] MEDS: PREGABALIN 100 MG CAP PO SCH ×3 (09:25→20:35)
[2019-09-05] MEDS: BISACODYL 5 MG TABLET.DR PO SCH (09:25)
[2019-09-05] MEDS: CARVEDILOL 3.125 MG TAB PO SCH ×2 (09:25→17:18)
[2019-09-05] MEDS: POTASSIUM CHLORIDE ER 20 MEQ TAB.ER PO SCH ×3 (09:25→22:25)
[2019-09-05] MEDS: LACTOBACILLUS ACIDOPH & BULGAR 1 EACH PACKET PO SCH ×2 (09:25→20:26)
[2019-09-05] MEDS: FLUCONAZOLE 100 MG TAB PO SCH (09:25)
[2019-09-05] MEDS: BUMETANIDE 1 MG TAB PO SCH ×2 (09:26→13:56)
[2019-09-05] MEDS: METOLAZONE 5 MG TAB PO SCH (09:26)
[2019-09-05] MEDS: SPIRONOLACTONE 25 MG TAB PO SCH (09:26)
[2019-09-05] MEDS: CHOLECALCIFEROL 1,000 UNIT TAB PO SCH ×2 (09:26→17:18)
[2019-09-05] MEDS: HEPARIN SODIUM,PORCINE 5,000 UNIT/ML 1 ML VIAL SQ SCH ×3 (09:27→23:43)
[2019-09-05] MEDS: HYDROmorphone 0.5 MG/0.5 ML SYRINGE IVP PRN ×2 (10:02→17:43)
[2019-09-05] MEDS: FLUTICASONE 50MCG/SPRAY NASAL 16GM EA NOSTRIL SCH (10:06)
[2019-09-05] MEDS: PETROLAT,WHITE/LAN/8-HYDROXYQU 227 GM OINT TOPICAL SCH (10:06)
[2019-09-05] MEDS: NYSTATIN 100,000 UNIT/GM POWD 15 GM TOPICAL SCH ×3 (10:06→22:26)
[2019-09-05] MEDS: HYDROPHILIC CREAM 180 GM TUBE TOPICAL SCH (10:07)
[2019-09-05 11:08] LABS: Glucose,Whole Blood 181 mg/dL (75-99)
--- NOTE | 2019-09-05 11:38 | P.PN ---
Subjective Progress Note Date: 09/05/19 CHIEF COMPLAINT: Wound debridement HISTORY OF PRESENT ILLNESS: Patient examined this morning at the bedside. Patient reports decreased pain to his extremities. WBC 16.0. Hemoglobin 11.8. Vital signs stable. He is afebrile. PHYSICAL EXAM: VITAL SIGNS: Reviewed. GENERAL: Well-developed in no acute distress. HEENT: No sclera icterus. Extraocular movements grossly intact. Moist buccal mucosa. Head is atraumatic, normocephalic. ABDOMEN: Soft. Nondistended. Nontender. NEUROLOGIC: Alert and oriented. Cranial nerves II through XII grossly intact. SKIN: Chronic skin discoloration to bilateral lower extremities with dry flaking skin. Skin breakdown noted to right posterior thigh. ASSESSMENT: 1. Cellulitis of lower extremities 2. Chronic leg wounds PLAN: Continue local wound care per infectious disease recommendations Continue antibiotics No surgical intervention recommended We will sign off. Please reconsult if needed Nurse practitioner note has been reviewed by physician. Signing provider agrees with the documented findings, assessment, and plan of care. Objective - Vital Signs Vital signs: Vital Signs Temp 98.1 F 09/05/19 05:00 Pulse 100 09/05/19 05:00 Resp 18 09/05/19 05:00 BP 116/63 09/05/19 05:00 Pulse Ox 92 L 09/05/19 05:00 Intake & Output 09/04/19 09/05/19 09/05/19 18:59 06:59 18:59 Intake Total 150 200 444 Output Total 1999 1650 Balance -1850 -1450 444 Weight 159.038 kg 150.5 kg Intake: Intake, IV Titration 150 200 Amount Cefepime 2 gm In Sodium 100 Chloride 0.9% 100 ml @ 200 mls/hr IVPB Q12H MICHAEL Rx#:[id number] Fluconazole in NaCl,Iso- 100 Osm 200 mg In Saline 1 100ml.bag @ 100 mls/hr IVPB DAILY MICHAEL Rx#: [id number] ceFAZolin 2 gm In Sodium 50 Chloride 0.9% 50 ml @ 100 mls/hr IVPB Q8HR MICHAEL Rx# :[id number] metroNIDAZOLE-NS PMX 500 100 mg In Saline 1 100ml.bag @ 100 mls/hr IVPB Q8H MICHAEL Rx#:[id number] Oral 444 Output: Urine 1999 1650 Uretheral (Rodriguez) 1999 650 Other: Voiding Method Indwelling Catheter Indwelling Catheter # Voids 2 - Labs CBC & Chem 7: 09/05/19 07:47 09/05/19 07:47 Labs: Abnormal Lab Results - Last 24 Hours (Table) 09/04/19 09/04/19 09/04/19 Range/Units 12:11 17:20 20:17 WBC (3.8-10.6) k/uL RBC (4.30-5.90) m/uL Hgb (13.0-17.5) gm/dL Hct (39.0-53.0) % Neutrophils # (1.3-7.7) k/uL Monocytes # (0-1.0) k/uL Eosinophils # (0-0.7) k/uL Basophils # (0-0.2) k/uL Sodium (137-145) mmol/L Chloride (98-107) mmol/L BUN (9-20) mg/dL Glucose (74-99) mg/dL POC Glucose (mg/dL) 140 H 123 H 180 H (75-99) mg/dL 09/05/19 09/05/19 09/05/19 Range/Units 07:14 07:47 07:47 WBC 16.0 H (3.8-10.6) k/uL RBC 3.67 L (4.30-5.90) m/uL Hgb 11.8 L (13.0-17.5) gm/dL Hct 34.2 L (39.0-53.0) % Neutrophils # 12.3 H (1.3-7.7) k/uL Monocytes # 1.2 H (0-1.0) k/uL Eosinophils # 0.8 H (0-0.7) k/uL Basophils # 0.3 H (0-0.2) k/uL Sodium 136 L (137-145) mmol/L Chloride 95 L (98-107) mmol/L BUN 21 H (9-20) mg/dL Glucose 143 H (74-99) mg/dL POC Glucose (mg/dL) 152 H (75-99) mg/dL 09/05/19 Range/Units 11:07 WBC (3.8-10.6) k/uL RBC (4.30-5.90) m/uL Hgb (13.0-17.5) gm/dL Hct (39.0-53.0) % Neutrophils # (1.3-7.7) k/uL Monocytes # (0-1.0) k/uL Eosinophils # (0-0.7) k/uL Basophils # (0-0.2) k/uL Sodium (137-145) mmol/L Chloride (98-107) mmol/L BUN (9-20) mg/dL Glucose (74-99) mg/dL POC Glucose (mg/dL) 181 H (75-99) mg/dL Microbiology - Last 24 Hours (Table) 09/02/19 Unknown Gram Stain - Final Buttock Wound Culture - Final Enterobacter cloacae 09/02/19 15:23 Blood Culture - Preliminary Blood No Growth after 48 hours
[2019-09-05] MEDS ORDERED: diphenhydrAMINE 25 MG CAP PO PRN (11:43)
[2019-09-05] MEDS: LOSARTAN 25 MG TAB PO SCH (12:12)
[2019-09-05 17:07] LABS: Glucose,Whole Blood 117 mg/dL (75-99)
[2019-09-05] MEDS: ASPIRIN 81 MG PO SCH (17:18)
[2019-09-05] MEDS: LORATADINE 10 MG TAB PO SCH (17:18)
--- NOTE | 2019-09-05 19:43 | PN ---
PROGRESS NOTE DATE OF SERVICE: 09/05/2019 This 59-year-old gentleman admitted with diffuse significant ulceration and foul- smelling discharge in the sacral area and upper part of the posterior thigh, especially on the right side, is being closely monitored. Patient is on broad spectrum IV antibiotics. The most recent cultures are showing Enterobacter cloacae from the wound, resistant to cefazolin. No chest pain. No palpitations. No fever. The patient is currently on cefepime. PHYSICAL EXAMINATION: Alert and oriented x3. Pulse 92, pressure 119/60, respirations 16, temperature 97.5, pulse ox 91% on room air. HEENT: Conjunctivae normal. NECK: No jugular venous distention. CARDIOVASCULAR SYSTEM: S1, S2 muffled. RESPIRATORY SYSTEM: Breath sounds diminished at the bases. No rhonchi. No crackles. ABDOMEN: Soft, non-tender. Obese. LEGS: Significant ulceration and maceration of skin present, as mentioned earlier. LABS: WBC 16, hemoglobin 11.8. Sodium 136. ASSESSMENT: 1. Diffuse significant ulceration and foul-smelling discharge in the sacral area as well as posterior aspect of the right thigh and leg with possible sepsis, present on admission, with Enterobacter cloacae. 2. Previous culture showing multiple organisms, including Proteus, Pseudomonas as well as anaerobic bacilli. 3. Severe pain secondary to above. 4. Increased white count. 5. Anemia, normocytic; anemia of chronic disease. 6. Hyponatremia. 7. Obesity with a body mass index of 50.3. 8. Hypoalbuminemia with mild to moderate protein-calorie malnutrition. 9. History of asthma. 10.History of coronary artery disease. 11.History of congestive heart failure. 12.Chronic obstructive pulmonary disease. 13.History of noncompliance. 14.Diabetes mellitus, type 2. 15.History of myocardial infarction. 16.History of prostate cancer. 17.History of sleep apnea. 18.History of coronary artery disease, stent. 19.History of anxiety. 20.Remote history of nicotine dependence. 21.FULL CODE. RECOMMENDATIONS AND DISCUSSION: In this 59-year-old gentleman who presented with multiple medical issues, we will monitor the patient closely, continue the current medications, continue the broad- spectrum IV antibiotics. Closely follow with multiple consultants. Prognosis guarded because of multiple complex medical issues. Please note: The patient has been to [facility] and apparently refused further medication. Patient also had an element of noncompliance. We will continue to monitor. PT/OT evaluation. Continue to follow with Surgery and Infectious Disease. Further recommendations to follow. MMODL / IJN: [id number] /
[2019-09-05 20:35] LABS: Glucose,Whole Blood 180 mg/dL (75-99)
[2019-09-05] MEDS: INSULIN DETEMIR (LEVEMIR) 100 UNIT/ML SYR SQ SCH (20:37)
[2019-09-05] MEDS: CIPROFLOXACIN HCL 500 MG TAB PO SCH (22:22)
[2019-09-06] MEDS: HYDROmorphone 1 MG/ML 1 ML SYRINGE IVP PRN ×5 (00:52→19:20)
[2019-09-06] MEDS: metroNIDAZOLE-NS PMX 500 MG in SALINE 1 100ML.BAG IVPB SCH (05:48)
--- NOTE | 2019-09-06 06:31 | PN ---
PROGRESS NOTE DATE OF SERVICE: 09/05/2019. REASON FOR FOLLOW UP: 1. Bilateral posterior thigh wound with secondary cellulitis. 2. Chronic cutaneous candidiasis. 3. Drug rash. INTERVAL HISTORY: The patient is currently afebrile. Patient has developed a rash on his trunk and is complaining of itching. This has been new complaint in the last 24 hours. The patient denies any chest pain or shortness of breath or cough. Overall discomfort to the sacral wound has improved. No nausea, vomiting and no diarrhea. PHYSICAL EXAMINATION: Blood pressure 118/77 with a pulse of 91, temperature 97.9. He is 95% on room air. General description is a middle-aged male up in the bed in no distress. Respiratory system: Unlabored breathing, decreased intensity in breath sounds. No wheeze. Heart S1, S2. Regular rate and rhythm. Abdomen soft, no tenderness. LABS: Hemoglobin is 11.4, white count 16. BUN of 21, creatinine 0.94. Wound culture with Enterobacter. Blood culture has been negative. DIAGNOSTIC IMPRESSION AND PLAN: 1. Patient with bilateral posterior thigh and gluteal wound with secondary cellulitis. Culture showing Enterobacter cloacae. The patient now developing significant drug rash, likely secondary to cefepime that will be discontinued. We will add Cipro to cover for the Enterobacter. 2. The patient with bilateral groin area cutaneous candidiasis. Local care to continue with nystatin powder and Diflucan and monitor clinical course closely. MMODL / IJN: [id number] /
[2019-09-06 06:55] LABS: Glucose,Whole Blood 172 mg/dL (75-99)
[2019-09-06] MEDS: SPIRONOLACTONE 25 MG TAB PO SCH (07:29)
[2019-09-06] MEDS: PANTOPRAZOLE 40 MG TABLET PO SCH (07:29)
[2019-09-06] MEDS: CHOLECALCIFEROL 1,000 UNIT TAB PO SCH ×2 (07:29→11:54)
[2019-09-06] MEDS: BISACODYL 5 MG TABLET.DR PO SCH (07:29)
[2019-09-06] MEDS: PREGABALIN 100 MG CAP PO SCH ×3 (07:30→20:47)
[2019-09-06] MEDS: CARVEDILOL 3.125 MG TAB PO SCH ×2 (07:30→17:05)
[2019-09-06] MEDS: INSULIN ASPART (NovoLOG) 100 UNIT/ML VIAL SQ SCH ×3 (07:31→17:27)
[2019-09-06] MEDS: BUMETANIDE 1 MG TAB PO SCH ×2 (07:32→11:53)
[2019-09-06] MEDS: HEPARIN SODIUM,PORCINE 5,000 UNIT/ML 1 ML VIAL SQ SCH ×3 (07:38→23:22)
[2019-09-06] MEDS: FLUTICASONE 50MCG/SPRAY NASAL 16GM EA NOSTRIL SCH (07:38)
[2019-09-06 11:17] LABS: Glucose,Whole Blood 118 mg/dL (75-99)
[2019-09-06] MEDS: CIPROFLOXACIN HCL 500 MG TAB PO SCH ×2 (11:53→20:47)
[2019-09-06] MEDS: POTASSIUM CHLORIDE ER 20 MEQ TAB.ER PO SCH ×3 (11:54→20:47)
[2019-09-06] MEDS: LACTOBACILLUS ACIDOPH & BULGAR 1 EACH PACKET PO SCH ×2 (11:54→20:48)
[2019-09-06] MEDS: ASPIRIN 81 MG PO SCH (11:55)
[2019-09-06] MEDS: LORATADINE 10 MG TAB PO SCH (11:55)
[2019-09-06] MEDS: LOSARTAN 25 MG TAB PO SCH (11:55)
[2019-09-06] MEDS: FLUCONAZOLE 100 MG TAB PO SCH (13:16)
[2019-09-06] MEDS: NYSTATIN 100,000 UNIT/GM POWD 15 GM TOPICAL SCH ×3 (13:16→20:49)
[2019-09-06] MEDS: KETOCONAZOLE 2% SHAMPOO 1 APPLIC/ML TOPICAL SCH (13:59)
[2019-09-06] MEDS: HYDROPHILIC CREAM 180 GM TUBE TOPICAL SCH (13:59)
[2019-09-06] MEDS: PETROLAT,WHITE/LAN/8-HYDROXYQU 227 GM OINT TOPICAL SCH (13:59)
[2019-09-06 17:14] LABS: Glucose,Whole Blood 183 mg/dL (75-99)
[2019-09-06 18:58] LABS: INR 1.1 (<1.2); Prothrombin Time 11.2 sec (9.0-12.0)
[2019-09-06 20:01] LABS: Glucose,Whole Blood 144 mg/dL (75-99)
[2019-09-06] MEDS: INSULIN DETEMIR (LEVEMIR) 100 UNIT/ML SYR SQ SCH (20:48)
--- NOTE | 2019-09-06 20:54 | PN ---
PROGRESS NOTE DATE OF SERVICE: 09/06/2019 This 59-year-old gentleman admitted with diffuse significant ulceration of the groin area and right leg also with possible sepsis is being closely monitored. The patient had extensive history of noncompliance and I had a detailed discussion with Dr. Andres Winters, who has been taking care of Shawn in the [facility] for several months. The patient is noncompliant on many fronts, which is contributing significantly to the worsening of these lesions at this time. Currently Case Management is planning ECF rehab. Dr. Winters indicated to me that probably a setup [facility] or an intensive setting would be ideal for Shawn because of the multiple complex medical issues. I also discussed with Dr. Escamilla, Infectious Disease, and recommended a PICC line and antibiotics, possibly a combination of vancomycin and Cipro; Enterobacter cloacae was grown from the cultures. PAST MEDICAL HISTORY: Reviewed. REVIEW OF SYSTEMS: CARDIOVASCULAR SYSTEM: No angina, palpitations. RESPIRATORY SYSTEM: As mentioned earlier. GI: As mentioned earlier. : No dysuria or retention. NERVOUS SYSTEM: No numbness, weakness. CURRENT MEDICATIONS: Reviewed. They include: 1. Tylenol 650 q.4 p.r.n. 2. Wanchese 10 mg q.6 p.r.n. 3. Maalox 30 mL q.4 p.r.n. 4. Xanax 0.25 t.i.d. 5. Aspirin 81 mg p.o. daily. 6. Cepacol q.2 p.r.n. 7. Dulcolax. 8. Bumex 2 mg p.o. b.i.d. 9. Coreg 3.125 mg b.i.d. 10.Cipro. 11.Benadryl. 12.Diflucan. 13.Dilaudid. 14.Levemir. 15.Nizoral. 16.Lactinex. 17.Claritin. 18.Cozaar. 19.Zyloprim. 20.Protonix. 21.K-Dur. 22.Lyrica. 23.Aldactone. 24.Restoril. Doses are reviewed. PHYSICAL EXAMINATION: Patient is alert, oriented x3. Pulse is 96, blood pressure 104/52, respiration 18, temperature 97.6, pulse ox 92% on room air. HEENT: Conjunctivae normal. NECK: No jugular venous distention. CARDIOVASCULAR SYSTEM: S1, S2 muffled. RESPIRATORY SYSTEM: Breath sounds diminished at the bases. Bilateral scattered rhonchi and crackles. ABDOMEN: Soft, obese, non-tender. LEGS: No edema. No swelling. NERVOUS SYSTEM: No focal deficit. LABS: WBC 16, hemoglobin 11.8. Sodium 136, potassium 4.3. The wound cultures are noted. The fungal culture was preliminary. ASSESSMENT: 1. Acute diffuse significant ulcerations and foul-smelling discharge in the sacral area as well as posterior part of the right thigh, including area with possible sepsis, present on admission, with Enterobacter cloacae. 2. Previous culture showing multiple organisms, including Proteus and Pseudomonas as well as anaerobic bacilli. 3. Severe pain secondary to above. 4. Increased white count. 5. History of noncompliance. 6. Anemia, normocytic; anemia of chronic disease. 7. Hyponatremia. 8. Obesity with body mass index of 50.3. 9. Hypoalbuminemia with mild to moderate protein-calorie malnutrition. 10.History of asthma. 11.History of coronary artery disease. 12.History of congestive heart failure, ejection fraction unknown. 13.History of chronic obstructive pulmonary disease. 14.Diabetes mellitus, type 2. 15.History of myocardial infarction. 16.History of prostate cancer. 17.History of sleep apnea. 18.History of coronary artery disease, stent. 19.History of anxiety. 20.Remote history of nicotine dependence. 21.FULL CODE. RECOMMENDATIONS AND DISCUSSION: In this 59-year-old gentleman who presented with multiple complex medical issues, at this time I recommend to continue current medications, continue with symptomatic treatment. Continue with the broad-spectrum IV antibiotics. Otherwise, continue with fluid restriction. The importance of compliance was stressed with Shawn. I had a detailed discussion with the patient. As mentioned earlier, I also discussed with Dr. Andres Winters from [facility]. Dr. Andres Winters would like the patient to be discharged to a more intense setting because of the multiple complex medical issues and other issues, as mentioned earlier. I will work with the nursing home social worker and child welfare caseworker to see whether the patient would be a candidate for select specialty because of significant wound issues or some other subacute setup where the patient could be more closely monitored and watched. Once again, the prognosis is guarded. Further recommendations to follow. See orders for further details. MMODL / IJN: [id number] /
[2019-09-06] MEDS: HYDROcodone/APAP 10-325MG 1 EACH TAB PO PRN (22:05)
--- NOTE | 2019-09-06 23:36 | PN ---
PROGRESS NOTE DATE OF SERVICE: 09/06/2019 REASON FOR FOLLOWUP: 1. Bilateral gluteal wounds with secondary cellulitis. 2. Chronic cutaneous candidiasis. INTERVAL HISTORY: The patient is currently afebrile, has been breathing comfortably. Denies having any chest pain or any cough. No nausea or vomiting. No abdominal pain or any worsening pain to the sacral or the groin area. PHYSICAL EXAMINATION: Blood pressure is 104/52 with a pulse of 93, temperature 97.6. He is 92% on room air. General description is a middle-aged male lying in bed in no distress. RESPIRATORY SYSTEM: Unlabored breathing. Clear to auscultation anteriorly. HEART: S1, S2. Regular rate and rhythm. ABDOMEN: Soft. No tenderness. Bilateral gluteal wounds with some surrounding swelling and minimal redness and no drainage. Groin area still has significant excoriation. Skin rash has improved. LABS: No new labs been obtained today. The patient did have cultures obtained at the outside hospital which are now growing MRSA in addition to Enterobacter, which was grown here. DIAGNOSTIC IMPRESSION AND PLAN: 1. Patient with bilateral gluteal area wounds with secondary cellulitis, culture now with MRSA and Enterobacter. The patient is on oral Cipro with concern for rash related to cefepime. Vancomycin added. He will need a PICC line and continue with Cipro and vancomycin for a total of 2 weeks. 2. Patient with bilateral groin area cutaneous candidiasis. Continue nystatin powder. Plan of care was discussed with the admitting team. MMODL / IJN: [id number] /
[2019-09-07] MEDS: HYDROmorphone 1 MG/ML 1 ML SYRINGE IVP PRN ×3 (02:32→21:28)
[2019-09-07] MEDS: HYDROcodone/APAP 10-325MG 1 EACH TAB PO PRN ×2 (05:08→16:06)
[2019-09-07 05:11] VITALS: PULSE 95
[2019-09-07 07:04] LABS: Glucose,Whole Blood 138 mg/dL (75-99)
[2019-09-07 08:23] LABS: Basophils # (A) 0.2 k/uL (0-0.2); Basophils % (A) 2 %; Eosinophils # (A) 0.6 k/uL (0-0.7); Eosinophils % (A) 5 %; HCT 37.1 % (39.0-53.0); HGB 11.9 gm/dL (13.0-17.5); Lymphocytes # (A) 1.3 k/uL (1.0-4.8); Lymphocytes % (A) 10 %; MCH 30.1 pg (25.0-35.0); Mean Platelet Volume 7.6; Monocytes # (A) 0.7 k/uL (0-1.0); Monocytes % (A) 5 %; Neutrophils # (A) 9.3 k/uL (1.3-7.7); Neutrophils % (A) 76 %; Platelet Count 516 k/uL (150-450); Poikilocytosis Slight; RBC 3.95 m/uL (4.30-5.90); RDW 14.9 % (11.5-15.5); WBC 12.4 k/uL (3.8-10.6)
[2019-09-07 09:00] LABS: African American GFR (CKD) >90 (>60 ml/min/1.73 sqM); Anion Gap 6 mmol/L; Blood Urea Nitrogen 31 mg/dL (9-20); C Reactive Protein 33.3 mg/L (<10.0); Calcium 9.2 mg/dL (8.4-10.2); Carbon Dioxide 35 mmol/L (22-30); Chloride 96 mmol/L (98-107); Glucose 167 mg/dL (74-99); Non-African American GFR(CKD) 79 (>60 ml/min/1.73 sqM); Potassium 4.3 mmol/L (3.5-5.1); Sodium 137 mmol/L (137-145)
[2019-09-07] MEDS: FLUCONAZOLE 100 MG TAB PO SCH (09:33)
[2019-09-07] MEDS: CHOLECALCIFEROL 1,000 UNIT TAB PO SCH ×2 (09:33→16:06)
[2019-09-07] MEDS: POTASSIUM CHLORIDE ER 20 MEQ TAB.ER PO SCH ×3 (09:33→21:29)
[2019-09-07] MEDS: SPIRONOLACTONE 25 MG TAB PO SCH (09:33)
[2019-09-07] MEDS: BISACODYL 5 MG TABLET.DR PO SCH (09:33)
[2019-09-07] MEDS: PANTOPRAZOLE 40 MG TABLET PO SCH (09:34)
[2019-09-07] MEDS: CARVEDILOL 3.125 MG TAB PO SCH ×2 (09:34→16:06)
[2019-09-07] MEDS: LACTOBACILLUS ACIDOPH & BULGAR 1 EACH PACKET PO SCH ×2 (09:34→21:29)
[2019-09-07] MEDS: INSULIN ASPART (NovoLOG) 100 UNIT/ML VIAL SQ SCH ×3 (09:34→17:44)
[2019-09-07] MEDS: PREGABALIN 100 MG CAP PO SCH ×3 (09:35→21:29)
[2019-09-07] MEDS: FLUTICASONE 50MCG/SPRAY NASAL 16GM EA NOSTRIL SCH (09:35)
[2019-09-07] MEDS: BUMETANIDE 1 MG TAB PO SCH ×2 (09:36→13:18)
[2019-09-07] MEDS: HEPARIN SODIUM,PORCINE 5,000 UNIT/ML 1 ML VIAL SQ SCH ×2 (09:36→13:51)
[2019-09-07] MEDS: METOLAZONE 5 MG TAB PO SCH (09:37)
[2019-09-07] MEDS: CIPROFLOXACIN HCL 500 MG TAB PO SCH ×2 (09:37→21:29)
[2019-09-07] MEDS ORDERED: VANCOMYCIN IV PER PHARMACY 1 EACH MISC MISCELLANE PRN (10:11)
[2019-09-07 11:04] LABS: Glucose,Whole Blood 177 mg/dL (75-99)
--- NOTE | 2019-09-07 11:22 | IR ---
PICC LINE PLACEMENT: HISTORY: Infection requiring long-term antibiotic therapy PROCEDURE: Ultrasound and fluoroscopic guidance of PICC line placement. COMPLICATIONS: None ANESTHESIA: 1. 1% Lidocaine locally. FINDINGS/TECHNIQUE: The procedure was explained to the patient. The risks, complications, benefits and alternatives were discussed and any questions were answered. Informed consent was obtained. The patient was placed supine on the fluoroscopic table and prepped and draped in the usual sterile fash ion. Utilizing a 21 gauge needle and sonographic and fluoroscopic guidance, access in the left basi lic vein was achieved and there is placement of a 0.018 guidewire. The vein is patent. A 4-F sheath was placed over the guidewire. The guidewire and dilator were removed and a 4-F. PICC line was plac ed through the sheath with the tip at the level of the SVC. The sheath was removed, the catheter was flushed and sutured into position. The patient was stable throughout the procedure and remained sta ble upon discharge from the Department of Radiology. The vein puncture was patent under ultrasound. A granados scale image was obtained to document patency of the vein punctured. All elements of the maximal barrier technique were utilized. FLUOROSCOPY TIME: 0.4 minutes and one image submitted IMPRESSION: Successful PICC line placement under ultrasound and fluoroscopic guidance.
[2019-09-07] MEDS: LOSARTAN 25 MG TAB PO SCH (12:13)
[2019-09-07] MEDS: VANCOMYCIN 2,000 MG in SODIUM CHLORIDE 0.9% 500 ML 500 ML IVPB SCH ×2 (12:13→21:29)
[2019-09-07] MEDS: HYDROmorphone 0.5 MG/0.5 ML SYRINGE IVP PRN (12:14)
[2019-09-07] MEDS: HYDROPHILIC CREAM 180 GM TUBE TOPICAL SCH (13:50)
[2019-09-07] MEDS: NYSTATIN 100,000 UNIT/GM POWD 15 GM TOPICAL SCH ×2 (13:51→16:26)
[2019-09-07] MEDS: PETROLAT,WHITE/LAN/8-HYDROXYQU 227 GM OINT TOPICAL SCH (13:51)
[2019-09-07] MEDS: ASPIRIN 81 MG PO SCH (16:06)
[2019-09-07] MEDS: LORATADINE 10 MG TAB PO SCH (16:06)
[2019-09-07 16:52] LABS: Glucose,Whole Blood 117 mg/dL (75-99)
--- NOTE | 2019-09-07 19:13 | PN ---
PROGRESS NOTE DATE OF SERVICE: 09/07/2019. REASON FOR FOLLOWUP: 1. Bilateral wound cellulitis. 2. Chronic cutaneous candidiasis. INTERVAL HISTORY: The patient is currently afebrile. Patient has been breathing comfortably. Denies having any chest pain or any cough. No nausea or vomiting. No abdominal pain and is very for the PICC line placement. PHYSICAL EXAMINATION: Blood pressure 132/73 with a pulse of 95, temperature 98.3. He is 94% on room air. General description is a middle-aged male lying in bed in no distress. Respiratory system: Unlabored breathing. Clear to auscultation anteriorly. HEART: S1, S2. Regular rate and rhythm. ABDOMEN: Soft, no tenderness. LABS: Hemoglobin 11.8, white count 4.4. Potassium 1.04. DIAGNOSTIC IMPRESSION AND PLAN: 1. Patient with bilateral gluteal wound with cellulitis. Culture has been positive for gram-negative. Outpatient culture currently positive for MRSA. Patient is to cover with vancomycin and Cipro. Continue for 2 weeks. Local care to continue with aquacel silver packing and keep the area dry and off pressure. 2. Bilateral groin cutaneous candidiasis, continue nystatin powder and a short course of oral Diflucan. MMODL / IJN: [id number] / MTDWilman
--- NOTE | 2019-09-07 19:37 | PN ---
PROGRESS NOTE DATE OF SERVICE: 09/07/2019 This 59-year-old gentleman who was admitted with acute diffuse significant ulcerations of the leg and sacral area is being closely monitored. No chest pain. No palpitations. No fever. The PICC line was inserted for outpatient IV antibiotics. The patient has been evaluated for LTAC placements, for which the patient is not being qualified at this time. No chest pain. No palpitations. No fever. PHYSICAL EXAMINATION: Alert and oriented x3. Pulse 95, blood pressure 130/59, respiration 20, temperature 98.4, pulse ox 92% on room air. HEENT: Conjunctivae normal. NECK: No jugular venous distention. CARDIOVASCULAR SYSTEM: S1, S2 muffled. RESPIRATORY SYSTEM: Breath sounds diminished at the bases. A few scattered rhonchi. ABDOMEN: Soft, obese. LEGS: Leg edema. NERVOUS SYSTEM: No focal deficit. LAB STUDIES: WBC 12.2, hemoglobin 11.9. Cultures are noted. ASSESSMENT: 1. Acute diffuse significant ulceration with foul-smelling discharge of the sacral area as well as posterior part of the right thigh, including sacral area, inguinal area with possible sepsis, present on admission, with Enterobacter cloaca. 2. Previous culture showing multiple organisms, including Proteus and Pseudomonas as well as anaerobic bacilli. 3. Severe pain secondary to above. 4. Increased white count. 5. History of noncompliance. 6. Anemia, normocytic; anemia of chronic disease. 7. Hyponatremia. 8. Obesity with body mass index of 50.3. 9. Hypoalbuminemia with mild to moderate protein-calorie malnutrition. 10.History of asthma. 11.History of coronary artery disease. 12.History of congestive heart failure, ejection fraction unknown. 13.History of chronic obstructive pulmonary disease. 14.Diabetes mellitus, type 2. 15.History of myocardial infarction. 16.History of prostate cancer. 17.History of sleep apnea. 18.History of coronary artery disease, stent. 19.History of anxiety. 20.Remote history of nicotine dependence. 21.FULL CODE. RECOMMENDATIONS AND DISCUSSION: I recommend to continue current medications, continue symptomatic treatment. I had a detailed discussion Dr. Andres Winters, who is the primary physician following the patient in [facility], and per his recommendations I have talked with the case packer and sealer and social media director, who has diligently worked on several options, including LTAC, for which the patient is unfortunately not qualifying at this time. So we will send the patient back to [facility] in [place]. However, we had a detailed discussion with the patient about the importance of compliance, and the patient understands and agrees about the importance of continued compliance with therapeutic regimens. Once again, the prognosis is guarded. Further recommendations to follow. MMODL / IJN: [id number] /
[2019-09-07 20:12] LABS: Glucose,Whole Blood 119 mg/dL (75-99)
[2019-09-07] MEDS: INSULIN DETEMIR (LEVEMIR) 100 UNIT/ML SYR SQ SCH (21:29)
[2019-09-07 22:03] VITALS: TEMP 97.9
[2019-09-08] MEDS: NYSTATIN 100,000 UNIT/GM POWD 15 GM TOPICAL SCH ×2 (00:02→09:07)
[2019-09-08] MEDS: HEPARIN SODIUM,PORCINE 5,000 UNIT/ML 1 ML VIAL SQ SCH ×3 (00:04→09:19)
[2019-09-08] MEDS: HYDROcodone/APAP 10-325MG 1 EACH TAB PO PRN ×2 (00:45→09:02)
[2019-09-08 05:18] VITALS: BP 114/61
[2019-09-08 07:20] LABS: Glucose,Whole Blood 105 mg/dL (75-99)
[2019-09-08] MEDS: FLUCONAZOLE 100 MG TAB PO SCH (09:01)
[2019-09-08] MEDS: LACTOBACILLUS ACIDOPH & BULGAR 1 EACH PACKET PO SCH (09:01)
[2019-09-08] MEDS: BISACODYL 5 MG TABLET.DR PO SCH (09:02)
[2019-09-08] MEDS: PANTOPRAZOLE 40 MG TABLET PO SCH (09:02)
[2019-09-08] MEDS: CARVEDILOL 3.125 MG TAB PO SCH (09:02)
[2019-09-08] MEDS: SPIRONOLACTONE 25 MG TAB PO SCH (09:02)
[2019-09-08] MEDS: CHOLECALCIFEROL 1,000 UNIT TAB PO SCH (09:02)
[2019-09-08] MEDS: PREGABALIN 100 MG CAP PO SCH ×2 (09:02→13:05)
[2019-09-08] MEDS: POTASSIUM CHLORIDE ER 20 MEQ TAB.ER PO SCH (09:03)
[2019-09-08] MEDS: INSULIN ASPART (NovoLOG) 100 UNIT/ML VIAL SQ SCH ×2 (09:05→12:59)
[2019-09-08] MEDS: FLUTICASONE 50MCG/SPRAY NASAL 16GM EA NOSTRIL SCH (09:06)
[2019-09-08] MEDS: CIPROFLOXACIN HCL 500 MG TAB PO SCH (09:06)
[2019-09-08] MEDS: BUMETANIDE 1 MG TAB PO SCH ×2 (09:06→13:05)
[2019-09-08] MEDS: HYDROPHILIC CREAM 180 GM TUBE TOPICAL SCH (09:07)
[2019-09-08] MEDS: PETROLAT,WHITE/LAN/8-HYDROXYQU 227 GM OINT TOPICAL SCH (09:07)
[2019-09-08] MEDS: KETOCONAZOLE 2% SHAMPOO 1 APPLIC/ML TOPICAL SCH (09:07)
[2019-09-08] MEDS: VANCOMYCIN 2,000 MG in SODIUM CHLORIDE 0.9% 500 ML 500 ML IVPB SCH (09:15)
[2019-09-08 09:20] LABS: African American GFR (CKD) >90 (>60 ml/min/1.73 sqM); Non-African American GFR(CKD) >90 (>60 ml/min/1.73 sqM)
--- NOTE | 2019-09-08 09:27 | P.DS ---
Providers Date of admission: 09/01/19 19:34 Expected date of discharge: 09/08/19 Attending physician: Erasmo Quispe Consults: 09/01/19 22:37 Consult Physician Routine Consulting Provider: Vikas Escamilla Consult Reason/Comments: wound instructions Do you want consulting provider notified?: Yes, Notify in am Primary care physician: Stated None Hospital Course: Final diagnosis Acute diffuse significant ulceration with foul-smelling discharge of the sacral area as well as posterior per the right thigh, including the sacral area, inguinal area with possible sepsis, present on admission with Enterobacter clocae Previous culture showing multiple organisms, including Proteus and Pseudomonas as well is anaerobic bacilli Severe pain secondary to above Increased white blood count history of noncompliance Anemia, normocytic, anemia of chronic disease Hyponatremia Obesity with a body mass index of 50.3 Hypoalbuminemia with mild to moderate protein calorie malnutrition History of asthma history of coronary artery disease history of congestive heart failure, ejection fraction unknown History of chronic obstructive pulmonary disease Diabetes mellitus type 2 History of myocardial infarction prostate cancer history History of sleep apnea History of coronary artery disease, stent history of anxiety remote history of nicotine dependence Full code Discharge disposition Patient is being discharged in a stable condition with guarded prognosis to [facility] and will follow-up with Dr. Winters in the outpatient setting. Patient will continue with IV antibiotics in the form of vancomycin for 2 weeks and will follow-up with infectious disease within 2 weeks. Patient will also continue on oral Cipro for the next 2 weeks as well. Total time taken is 35 minutes. History of present illness This is a 59-year-old male who was recently admitted with acute diffuse significant ulcerations of the leg and sacral area and was being closely monitored. Infectious Disease and wound care were following. During hospitalization patient had a PICC line placed for continued IV antibiotic therapy in the outpatient setting. Patient will continue with IV vancomycin twice daily for the next 2 weeks and will follow-up with infectious disease within the 2 weeks. Patient will also continue on oral Cipro for the next 2 weeks as well. Patient continue with local wound care and dressing changes daily. Discussed with the patient at length about compliance to promote healing and minimize risk of further infections. Patient does have a history of noncompliance. Patient verbalized understanding. Currently patient denies any chest pain, shortness of breath, or palpitations. Patient is afebrile. Patient denies any nausea or vomiting and has been tolerating diet. Will need continued blood glucose monitoring before meals at bedtime and treat accordingly with sliding scale along with long-acting insulin. Currently patient's condition is stable and ready for discharge to [facility] today. Guarded prognosis. On exam vital signs are stable. Temp is 97.9F, pulse is in the 90s, respirations are 18, blood pressure is 114/61, oxygen saturation is 93% on room air. Cardio S1, S2 are muffled. Respiratory system shows diminished breath sounds at the bases with no wheezing or rhonchi noted. Abdomen is soft, obese, nontender. Nervous system shows mild diffuse weakness. Please refer to medication reconciliation sheet for a list of medications. Patient Condition at Discharge: Stable Plan - Discharge Summary New Discharge Prescriptions: New Petrolat,White/Dylon/8-Hydroxyqu [Bag [place]] 1 gm TOPICAL DAILY oint Ciprofloxacin HCl [Cipro] 500 mg PO BID 14 Days #28 tab Fluconazole [Diflucan] 200 mg PO DAILY 7 Days #7 tab Hydrophilic Cream [Triad Cream] 1 applic TOPICAL DAILY applic Vancomycin 2,000 mg IVPB Q12HR 14 Days #28 vial Continue Spironolactone [Aldactone] 25 mg PO DAILY@0800 Sodium Chloride [Saline Nasal [place]] 1 spray EA NOSTRIL Q2H PRN PRN Reason: Congestion Pregabalin [Lyrica] 100 mg PO TID@0700,1300,2100 Potassium Chloride ER [K-Dur 20] 40 meq PO TID Omeprazole [PriLOSEC] 20 mg PO BID@0600,1600 Nystatin 100,000 Unit/gm Powd [Mycostatin Powder] 1 applic TOPICAL TID Nicotine Polacrilex [Nicotine Lozenge] 4 mg BUCCAL Q6H PRN PRN Reason: NICOTINE DEPENDENCE Metolazone [Zaroxolyn] 5 mg PO MOWEFR Menthol [Nice Cough Drops] 1 drop BUCCAL Q2H PRN PRN Reason: Cough Magnesium Hydroxide [Milk of Magnesia] 2,400 mg PO DAILY PRN PRN Reason: Constipation Mag Hydrox/Aluminum Hyd/Simeth [Mylanta Maximum Strength Liq] 10 ml PO Q4H PRN PRN Reason: Heartburn Losartan [Cozaar] 25 mg PO DAILY@1200 Loratadine 10 mg PO DAILY@1800 L.acidoph,Paracasei, B.lactis [Probiotic] 2 cap PO BID@0900,2100 Ketoconazole 2% Shampoo [Nizoral] 1 applic TOPICAL TUTHSA Insulin Lispro [humaLOG Kwikpen] 15 unit SQ TID Insulin Glargine,Hum.rec.anlog [Lantus Solostar] 50 unit SQ HS Fluticasone Nasal [place] [Flonase Nasal [place]] 2 spr EA NOSTRIL DAILY@0700 Cholecalciferol [Vitamin D3 (25 Mcg = 1000 Iu)] 1,000 unit PO BID@0700,1700 Chlorhexidine Gluconate [Hibiclens] 1 applic TOPICAL Q7D Carvedilol [Coreg] 3.125 mg PO BID@0700,1700 Bumetanide 2 mg PO BID@0800,1300 Bisacodyl [Dulcolax] 5 mg PO DAILY@0700 Benzocaine/Menthol Lozeng [Cepacol lozenge] 1 each MUCOUS MEM Q2H PRN PRN Reason: Sore Throat Aspirin [[place] Aspirin EC] 81 mg PO DAILY@1700 Acetaminophen Tab [Tylenol] 650 mg PO Q4H PRN PRN Reason: Pain Hydraguard Lotion 1 applic TOPICAL TID HYDROcodone/APAP 10-325MG [Victor 10-325] 1 tab PO Q6H PRN #3 tab PRN Reason: Pain Discontinued Clindamycin [Cleocin] 450 mg PO Q6H Discharge Medication List Acetaminophen Tab [Tylenol] 650 mg PO Q4H PRN 09/01/19 [History] Aspirin [[place] Aspirin EC] 81 mg PO DAILY@1700 09/01/19 [History] Benzocaine/Menthol Lozeng [Cepacol lozenge] 1 each MUCOUS MEM Q2H PRN 09/01/19 [History] Bisacodyl [Dulcolax] 5 mg PO DAILY@0700 09/01/19 [History] Bumetanide 2 mg PO BID@0800,1300 09/01/19 [History] Carvedilol [Coreg] 3.125 mg PO BID@0700,1700 09/01/19 [History] Chlorhexidine Gluconate [Hibiclens] 1 applic TOPICAL Q7D 09/01/19 [History] Cholecalciferol [Vitamin D3 (25 Mcg = 1000 Iu)] 1,000 unit PO BID@0700,1700 09/01/19 [History] Fluticasone Nasal Sugarcreek [Flonase Nasal [place]] 2 spr EA NOSTRIL DAILY@0700 0 09/01/19 [History] Hydraguard Lotion 1 applic TOPICAL TID 09/01/19 [History] Insulin Glargine,Hum.rec.anlog [Lantus Solostar] 50 unit SQ HS 09/01/19 [History] Insulin Lispro [humaLOG Kwikpen] 15 unit SQ TID 09/01/19 [History] Ketoconazole 2% Shampoo [Nizoral] 1 applic TOPICAL TUTHSA 09/01/19 [History] L.acidoph,Paracasei, B.lactis [Probiotic] 2 cap PO BID@0900,2100 09/01/19 [History] Loratadine 10 mg PO DAILY@1800 09/01/19 [History] Losartan [Cozaar] 25 mg PO DAILY@1200 09/01/19 [History] Mag Hydrox/Aluminum Hyd/Simeth [Mylanta Maximum Strength Liq] 10 ml PO Q4H PRN 09/01/19 [History] Magnesium Hydroxide [Milk of Magnesia] 2,400 mg PO DAILY PRN 09/01/19 [History] Menthol [Nice Cough Drops] 1 drop BUCCAL Q2H PRN 09/01/19 [History] Metolazone [Zaroxolyn] 5 mg PO MOWEFR 09/01/19 [History] Nicotine Polacrilex [Nicotine Lozenge] 4 mg BUCCAL Q6H PRN 09/01/19 [History] Nystatin 100,000 Unit/gm Powd [Mycostatin Powder] 1 applic TOPICAL TID 09/01/19 [History] Omeprazole [PriLOSEC] 20 mg PO BID@0600,1600 09/01/19 [History] Potassium Chloride ER [K-Dur 20] 40 meq PO TID 09/01/19 [History] Pregabalin [Lyrica] 100 mg PO TID@0700,1300,2100 09/01/19 [History] Sodium Chloride [Saline Nasal [place]] 1 spray EA NOSTRIL Q2H PRN 09/01/19 [History] Spironolactone [Aldactone] 25 mg PO DAILY@0800 09/01/19 [History] Ciprofloxacin HCl [Cipro] 500 mg PO BID 14 Days #28 tab 09/08/19 [Rx] Fluconazole [Diflucan] 200 mg PO DAILY 7 Days #7 tab 09/08/19 [Rx] HYDROcodone/APAP 10-325MG [Victor 10-325] 1 tab PO Q6H PRN #3 tab 09/08/19 [Rx] Hydrophilic Cream [Triad Cream] 1 applic TOPICAL DAILY applic 09/08/19 [Rx] Petrolat,White/Dylon/8-Hydroxyqu [Bag [place]] 1 gm TOPICAL DAILY oint 09/08/19 [Rx] Vancomycin 2,000 mg IVPB Q12HR 14 Days #28 vial 09/08/19 [Rx] Follow up Appointment(s)/Referral(s): [facility], [NON-STAFF] - 1-2 Days Vikas Escamilla MD [STAFF PHYSICIAN] - 2 Weeks Activity/Diet/Wound Care/Special Instructions: Patient is going to [facility] Activity as tolerated Continue current diet Continue monitoring blood sugars before meals at bedtime and treat accordingly with sliding scale Continue with IV antibiotics of vancomycin for 2 weeks and follow-up with infectious disease Continue with oral antibiotics for 2 weeks Continue with local wound care and keep the area dry and off pressure Thursday/Thursday/Thursday right foot ulcer/wound: Apply honey alginate, saline moistened gauze, border foam to the lateral aspect of the right foot and change on Mondays/Wednesdays/Fridays Daily wound care: Cleanse with normal saline to the coccyx/ sacrum and right lower extremity: Apply Triad to sacral region and medial aspect of the right lower extremity may use if dry in the folds. Wash daily and dried thoroughly and changed to an offloading surface PICC line instructions Please avoid blood pressures venous punctures to the left basilic area Using a 10 mL flush and flushed prior to administration of medications and after administration of medications Keep dressing and Tegaderm dry and intact and change accordingly if dressing is wet or damaged Discharge Disposition: TRANSFER TO SNF/ECF
--- NOTE | 2019-09-08 09:45 | CDI ---
Documentation Clarification Form Date: 09/08/2019 09:31:12 AM From: Karey Escobedo CCS, CCDS Admit Date: 09/01/2019 07:34:00 PM Patient Name: Shawn Lion Visit Number: [id number] Discharge Date: ATTENTION: The Clinical Documentation Specialists (CDI) and [facility] Coding Staff appreciate your assistance in clarifying documentation. Please respond to the clarification below the line at the bottom and electronically sign. The CDI & [facility] Coding staff will review the response and follow-up if needed. Please note: Queries are made part of the Legal Health Record. If you have any questions, please contact the author of this message via ITS. Dr. Erasmo Quispe: Malnutrition has been documented in 09/02 History & Physical and subsequent attending progress notes as "Mild - Moderate Protein Calorie Malnutrition". History/Risk Factors: CAD, CHF, COPD, DM, ND, Sleep apnea, previous bilateral lower extremity ulcers & is a former smoker. Clinical Indicators: Presented on 09/01 with pain & swelling with ulceration of the sacral area & also the posterior part of the right leg. Diagnosed with Sepsis secondary to a stage II sacral ulcer & leg ulcer, nos. Also has DM type 2 & obesity w/BMI >50. Labs: WBC 16.1^, Hgb 10.8*, Neut 12.8^, Gluc 139^, Total Protein (7.6), Albumin 3.1*. Current BMI as of 09/08: 45.2 Nutritional Assessment 09/04: Appetite good, Heart healthy, consistent carb, 2300 mL fluid restricted diet, Obese, Stage II pressure ulcer bilateral buttock, venous ulcers, cellulitis & rash. Oral Supplements: Mikey BID. Wt 159.038 kg (chair scale), Ht 5 ft 10 in. BMI: 50.3. Wt change: fluid retention, bilateral leg edema). Treatment: Specialty bed, Rodriguez catheter, Oral nutrition supplements. IV antibiotics (PICC line placed 09/07). Consults: Wound care, Infectious Disease, Speech Therapy, Social Work for placement. In your professional opinion, can you please clarify if these findings signify one of the following conditions? Mild Protein-Calorie Malnutrition Moderate Protein-Calorie Malnutrition Other condition, please specify Unable to determine (Last Revision: January 2019) Unable to determine MTDD
[2019-09-08 11:32] LABS: Glucose,Whole Blood 117 mg/dL (75-99)
[2019-09-08 11:42] VITALS: RESP 17
[2019-09-08] MEDS: LOSARTAN 25 MG TAB PO SCH (12:59)
--- NOTE | 2019-09-08 16:40 | P.PN ---
Progress Note - Text Progress Note Date: 09/08/19 REASON FOR FOLLOWUP: 1. Bilateral wound cellulitis. 2. Chronic cutaneous candidiasis. INTERVAL HISTORY: The patient remains to be afebrile. Patient is breathing comfortably. The patient having any chest pain or any cough. No nausea or vomiting. No abdominal pain and the patient is got a PICC line is currently waiting for placement PHYSICAL EXAMINATION: Blood pressure 114/61 with a pulse of 95, temperature 97.9. He is 94% on room air. General description is a middle-aged male up in bed in no distress. Respiratory system: Unlabored breathing. Clear to auscultation anteriorly. HEART: S1, S2. Regular rate and rhythm. ABDOMEN: Soft, no tenderness. LABS: The patient creatinine 0.91 no CBC was done today DIAGNOSTIC IMPRESSION AND PLAN: 1. Patient with bilateral gluteal wound with cellulitis. Culture has been positive for Enterobacter, Outpatient culture currently positive for MRSA. Patient to continue with vancomycin and Cipro. Continue for 2 weeks. Local care with aquacel silver packing and keep the area dry and off pressure. 2. Bilateral groin cutaneous candidiasis, continue nystatin powder twice daily and keep the area dry
[2019-09-09] MEDS ORDERED: VANCOMYCIN TROUGH DUE 1 EACH MISC MISCELLANE ONE (20:00)
--- NOTE | 2019-09-12 08:36 | CDI ---
Documentation Clarification Form Date: 09/12/19 From: Joaquina Turner Phone: If you have a question about this query, please contact Bernadette Bee, Undercover Agent at [phone] between 8am and 5pm. Admit Date: 09/01/19 Discharge Date:09/08/19 Patient Name: Shawn Lion Visit Number: [id number] ATTENTION: The Clinical Documentation Specialists (CDI) and [facility] Coding Staff appreciate your assistance in clarifying documentation. Please respond to the clarification below the line at the bottom and electronically sign. The CDI & [facility] Coding staff will review the response and follow-up if needed. Please note: Queries are made part of the Legal Health Record. If you have any questions, please contact the author of this message via ITS. Dear Dr. Quispe Bilateral gluteal and thigh cellulitis is documented in Dr. Escamilla's consult note and progress notes. Patient history/risk factors: Pressure ulcers bilateral sacrum and right thigh, diabetes Clinical Indicators: Pain, swelling, excoriation Labs: WBC 16.1, glucose 139, Vital Signs: T. 98.2, P. 107, R. 20, BP 135/65 Treatment: Medication: IV Cefazolin, IV Cefepime, IV Flagyl, IV Zosyn, IV Vancomycin In your professional opinion, can cellulitis be further specified as one of the following? Ruled In Ruled Out Other: Unable to determine ALSO Associated with Diabetes Not associated with diabetes Other Unable to determine Ruled In Associated with Diabetes MTDD
== END 2019-09-08 13:27 | DRG 872 ==
LOC: 5NMEDONC 19:34
PROVIDERS: ADMIT Hospitalist; ATTEND Hospitalist
PROC: 02HV33Z Insertion of Infusion Device into Superior Vena Cava, Percutaneous Approach (ICD-10-PCS; principal; 2019-09-07 07:30)
DX: A41.59 Other Gram-negative sepsis (principal); E44.0 Moderate protein-calorie malnutrition; E87.1 Hypo-osmolality and hyponatremia; I87.311 Chronic venous hypertension (idiopathic) with ulcer of right lower extremity; L97.819 Non-pressure chronic ulcer of other part of right lower leg with unspecified severity; L03.317 Cellulitis of buttock; L03.115 Cellulitis of right lower limb; L03.116 Cellulitis of left lower limb; Z68.43 Body mass index [BMI] 50.0-59.9, adult; B96.89 Other specified bacterial agents as the cause of diseases classified elsewhere; L89.42 Pressure ulcer of contiguous site of back, buttock and hip, stage 2; L89.152 Pressure ulcer of sacral region, stage 2; L97.512 Non-pressure chronic ulcer of other part of right foot with fat layer exposed; D63.8 Anemia in other chronic diseases classified elsewhere; I11.0 Hypertensive heart disease with heart failure; E11.621 Type 2 diabetes mellitus with foot ulcer; I50.9 Heart failure, unspecified; E11.628 Type 2 diabetes mellitus with other skin complications; B37.2 Candidiasis of skin and nail; T36.1X5A Adverse effect of cephalosporins and other beta-lactam antibiotics, initial encounter; E66.01 Morbid (severe) obesity due to excess calories; G47.30 Sleep apnea, unspecified; I25.10 Atherosclerotic heart disease of native coronary artery without angina pectoris; I25.2 Old myocardial infarction; I89.0 Lymphedema, not elsewhere classified; J44.9 Chronic obstructive pulmonary disease, unspecified; F41.9 Anxiety disorder, unspecified; L27.0 Generalized skin eruption due to drugs and medicaments taken internally; S51.012A Laceration without foreign body of left elbow, initial encounter; Z95.5 Presence of coronary angioplasty implant and graft; Z91.19 Patient's noncompliance with other medical treatment and regimen; Z85.46 Personal history of malignant neoplasm of prostate; Z79.4 Long term (current) use of insulin; Z79.82 Long term (current) use of aspirin; Z79.899 Other long term (current) drug therapy; Z87.891 Personal history of nicotine dependence; Z91.048 Other nonmedicinal substance allergy status; Z80.9 Family history of malignant neoplasm, unspecified
CPT/HCPCS: 36573; 80048; 80053; 82565; 85025; 85610; 85652; 86140; 86780; 87040; 87070; 87077; 87102; 87186; 87205; 87390

== ENCOUNTER 2020-05-08 16:06 | Inpatient (IN) | payer MEDICARE, OTHER ==
--- NOTE | 2020-05-08 16:42 | ED ---
General Adult HPI - General Chief complaint: Wound/Laceration Stated complaint: Wound Care Time Seen by Provider: 05/08/20 16:17 Source: patient, EMS Mode of arrival: EMS Limitations: no limitations - History of Present Illness Initial comments: Dictation was produced using Team Apart dictation software. please excuse any grammatical, word or spelling errors. This patient was cared for during a federal and state declared state of emergency secondary to Covid 19 Chief Complaint: 59-year-old male transferred from [facility] for d ecubitus ulcer History of Present Illness: Patient is a 59-year-old male he is currently a resident of skilled nursing. Patient is a paraplegic. He has history of chronic debility. States that 3 weeks ago he had an ostomy performed for diversion of stool contents for treatment of stage IV decubitus ulcer. He states he also had discomfort rated at outside hospital. He presented to [facility] after being sent there by nursing's home staff for concerns of worsening infection. According to transferring documentation patient was sent to the emergency room at [facility] for lethargy, increased drainage. There is also concern of necrotic stoma on the left side of the abdomen. He is given vancomycin there. Patient allegedly refused to go back to where his primary surgeon is. Said he was sent here to our hospital for further care. The ROS documented in this emergency department record has been reviewed and confirmed by me. Those systems with pertinent positive or negative responses have been documented in the HPI. All other systems are other negative and/or noncontributory. PHYSICAL EXAM: General Impression: Alert and oriented x3, not in acute distress, morbidly obese HEENT: Normocephalic atraumatic, extra-ocular movements intact, pupils equal and reactive to light bilaterally, mucous membranes moist. Cardiovascular: Heart regular rate and rhythm Chest: Able to complete full sentences, no retractions, no tachypnea Abdomen: abdomen soft, non-tender, non-distended, no organomegaly Musculoskeletal: Pulses present and equal in all extremities, no peripheral edema Motor: no focal deficits noted Neurological: CN II-XII grossly intact, paraplegic Skin: Intact with no visualized rashes, stage IV decubitus ulcer over the coccyx, this edema to bilateral lower extremities Psych: Normal affect and mood ED course: 59-year-old male presents with worsening decubitus ulcer. Vital signs upon arrival are within acceptable limits. Patient feels like he does not need to be here. He was initially seen and [facility] emergency department. Labs were reviewed. He has no leukocytosis. Hemoglobin 9.6. Metabolic panel shows sodium 137, potassium 3.5, chloride 103, bicarb 29, glucose 112. Creatinine is 0.9 with a BUN of 9. Lactic acidosis of 2.4 with a pro-calcitonin of 0.53.Patient be admitted to [facility]. Consultation will be made to infectious disease and Gen. surgery. - Related Data Home Medications Medication Instructions Recorded Confirmed Acetaminophen Tab [Tylenol] 650 mg PO Q4H PRN 09/01/19 09/01/19 Aspirin [[place] Aspirin EC] 81 mg PO DAILY@1700 09/01/19 09/01/19 Benzocaine/Menthol Lozeng [Cepacol 1 each MUCOUS MEM Q2H PRN 09/01/19 09/01/19 lozenge] Bumetanide 2 mg PO BID@0800,1300 09/01/19 09/01/19 Chlorhexidine Gluconate [Hibiclens] 1 applic TOPICAL Q7D 09/01/19 09/01/19 Cholecalciferol [Vitamin D3 (25 1,000 unit PO BID@0700,1700 09/01/19 09/01/19 Mcg = 1000 Iu)] Fluticasone Nasal [place] [Flonase 2 spr EA NOSTRIL DAILY@0700 09/01/19 09/01/19 Nasal [place]] Hydraguard Lotion 1 applic TOPICAL TID 09/01/19 09/01/19 Insulin Glargine,Hum.rec.anlog 50 unit SQ HS 09/01/19 09/01/19 [Lantus Solostar] Insulin Lispro [humaLOG Kwikpen] 15 unit SQ TID 09/01/19 09/01/19 Ketoconazole 2% Shampoo [Nizoral] 1 applic TOPICAL TUTHSA 09/01/19 09/01/19 L.acidoph,Paracasei, B.lactis 2 cap PO BID@0900,2100 /01/1309/01/19 [Probiotic] Loratadine 10 mg PO DAILY@1800 09/01/19 09/01/19 Losartan [Cozaar] 25 mg PO DAILY@1200 09/01/19 09/01/19 Mag Hydrox/Aluminum Hyd/Simeth 10 ml PO Q4H PRN 09/01/19 09/01/19 [Mylanta Maximum Strength Liq] Magnesium Hydroxide [Milk of 2,400 mg PO DAILY PRN 09/01/19 09/01/19 Magnesia] Menthol [Nice Cough Drops] 1 drop BUCCAL Q2H PRN 09/01/19 09/01/19 Nicotine Polacrilex [Nicotine 4 mg BUCCAL Q6H PRN 09/01/19 09/01/19 Lozenge] Nystatin 100,000 Unit/gm Powd 1 applic TOPICAL TID 09/01/19 09/01/19 [Mycostatin Powder] Omeprazole [PriLOSEC] 20 mg PO BID@0600,1600 09/01/19 09/01/19 Potassium Chloride ER [K-Dur 20] 40 meq PO TID 09/01/19 09/01/19 Pregabalin [Lyrica] 100 mg PO TID@0700,1300,2100 09/01/19 09/01/19 Sodium Chloride [Saline Nasal 1 spray EA NOSTRIL Q2H PRN 09/01/19 09/01/19 Thousandsticks] Spironolactone [Aldactone] 25 mg PO DAILY@0800 09/01/19 09/01/19 bisacodyL [Dulcolax] 5 mg PO DAILY@0700 09/01/19 09/01/19 carvediloL [Coreg] 3.125 mg PO BID@0700,1700 09/01/19 09/01/19 metOLazone [Zaroxolyn] 5 mg PO MOWEFR 09/01/19 09/01/19 Previous Rx's Medication Instructions Recorded Ciprofloxacin HCl [Cipro] 500 mg PO BID 14 Days #28 tab 09/08/19 Fluconazole [Diflucan] 200 mg PO DAILY 7 Days #7 tab 09/08/19 HYDROcodone/APAP 10-325MG [[place] 1 tab PO Q6H PRN #3 tab 09/08/19 10-325] Hydrophilic Cream [Triad Cream] 1 applic TOPICAL DAILY applic 09/08/19 Petrolat,White/Dylon/8-Hydroxyqu 1 gm TOPICAL DAILY oint 09/08/19 [Bag [place]] Vancomycin 2,000 mg IVPB Q12HR 14 Days #28 09/08/19 vial Allergies Allergy/AdvReac Type Severity Reaction Status Date / Time adhesive tape Allergy Rash/Hives Verified 05/08/20 16:22 Review of Systems ROS Statement: Those systems with pertinent positive or pertinent negative responses have been documented in the HPI. ROS Other: All systems not noted in ROS Statement are negative. Past Medical History Past Medical History: Asthma, Coronary Artery Disease (CAD), Heart Failure, COPD, Diabetes Mellitus, Myocardial Infarction ([place]), Prostate Disorder, Skin Disorder, Sleep Apnea/CPAP/BIPAP Additional Past Medical History / Comment(s): Bilateral lower extremity ulcers, edema left lower legs, edema and "tumor" rt leg, diff with ambulation, buttocks ulcer Last Myocardial Infarction Date:: 1999 History of Any Multi-Drug Resistant Organisms: None Reported Past Surgical History: Heart Catheterization With Stent, Tonsillectomy Additional Past Surgical History / Comment(s): chest tube in for collapsed lung, one cardiac stent, Past Anesthesia/Blood Transfusion Reactions: No Reported Reaction Date of Last Stent Placement:: 1999 Past Psychological History: Anxiety Smoking Status: Never smoker Past Alcohol Use History: None Reported Past Drug Use History: None Reported - Past Family History Father Family Medical History: Unable to Obtain Mother Family Medical History: Unable to Obtain Sister(s) Family Medical History: Cancer General Exam Limitations: no limitations Course Vital Signs 05/08/20 05/08/20 05/08/20 16:16 17:50 18:34 Temperature 98.1 F Pulse Rate 96 100 98 Respiratory 18 18 20 Rate Blood Pressure 102/55 106/61 112/57 O2 Sat by Pulse 98 97 97 Oximetry Disposition Clinical Impression: Decubitus ulcer Disposition: ADMITTED IP TO THIS HOSP Condition: Fair Referrals: Nonstaff,Physician [REFERRING] - 1-2 days Decision Time: 19:36
[2020-05-08] MEDS ORDERED: HYDROcodone/APAP 10-325MG 1 EACH TAB PO STA (18:28)
[2020-05-08] MEDS ORDERED: NALOXONE 0.4 MG/ML 1 ML VIAL IV PRN (19:32)
[2020-05-08] MEDS ORDERED: ONDANSETRON 4 MG/2 ML VIAL IVP PRN (19:32)
[2020-05-08] MEDS ORDERED: ACETAMINOPHEN TAB 325 MG TAB PO PRN (19:32)
[2020-05-08] MEDS ORDERED: VANCOMYCIN IV PER PHARMACY 1 EACH MISC MISCELLANE PRN (19:35)
[2020-05-08] MEDS ORDERED: VANCOMYCIN 2,500 MG in SODIUM CHLORIDE 0.9% 500 ML 500 ML IVPB STA ×2 (19:41→20:39)
[2020-05-08] MEDS ORDERED: ALPRAZolam 0.25 MG TAB PO PRN (21:08)
[2020-05-08] MEDS ORDERED: HYDROmorphone 0.5 MG/0.5 ML SYRINGE IVP PRN (21:08)
--- NOTE | 2020-05-08 22:22 | HP ---
HISTORY AND PHYSICAL DATE OF SERVICE: 05/08/2020 CHIEF COMPLAINT: Decubitus ulcer, nonhealing. HISTORY OF PRESENT ILLNESS: This 59-year-old gentleman with a past medical history of multiple medical problems, including asthma, CAD, CHF, COPD, diabetes mellitus, hypertension, history of decubitus ulcer, being followed by a physician in the [facility], was complaining of decubitus ulcer. The patient is paraplegic and the patient had ostomy performed with diversion of stool about 3 weeks ago for the treatment stage IV decubitus ulcer. The patient has got some pain and, because of non-improvement, the patient went to [facility] and the patient was referred to [facility] for worsening infection. The patient also noted some lethargy. There was increased drainage. Patient is on vancomycin. There is no history of any fever, rigor or chills. No history of headache, loss of consciousness, seizures at this time. The patient is rather drowsy, unable to give a coherent history. Most of the history is taken from my discussion with staff and review of the chart and discussion with the ER physician. PAST MEDICAL HISTORY: Asthma, CAD, CHF, COPD, diabetes mellitus, type 2, prostate disorder, chronic lower extremity ulcers, CAD, stent. HOME MEDICATIONS: Zaroxolyn, Coreg, Dulcolax, vancomycin, Aldactone, nasal spray, Lyrica, K-Dur, Prilosec, menthol, magnesium oxide, Mylanta, Cozaar, loratadine, ketoconazole, Lantus. [place], Flonase, Diflucan, Cipro, vitamin D3, Hibiclens, Cepacol, Ecotrin, Tylenol. Doses reviewed. ALLERGIES: ADHESIVE TAPES. FAMILY HISTORY: History of cancer in the family. SOCIAL HISTORY: Previous history of smoking. REVIEW OF SYSTEMS: Review of systems could not be taken because of the patient's change in mental status. PHYSICAL EXAMINATION: Patient is slightly drowsy. Pulse is 101, blood pressure 117/57, respiration 18, temperature 98 degrees, pulse ox 96% on room air. HEENT: Conjunctivae normal. NECK: No jugular venous distention. CARDIOVASCULAR SYSTEM: S1, S2 muffled. RESPIRATORY SYSTEM: Breath sounds diminished at the bases. A few scattered rhonchi and crackles. ABDOMEN: Soft, obese, non-tender. LEGS: Significant swelling and dry skin and decubitus also present. NERVOUS SYSTEM: Nervous system could not be tested completely. SKIN: As mentioned earlier. JOINTS: No active deforming arthropathy. LABS: Labs are awaited. ASSESSMENT: 1. Grade 4 sacral decubitus ulcer with sepsis and failure of outpatient treatment. 2. Change in mental status, acute metabolic encephalopathy secondary to sepsis. 3. History of asthma, chronic obstructive pulmonary disease. 4. History of congestive heart failure. 5. Diabetes mellitus, type 2. 6. History of myocardial infarction. 7. History of sleep apnea. 8. History of bilateral lower extremity ulcers. 9. History of coronary artery disease, stent. 10.History of anxiety. 11.Super morbid obesity with body mass index of 57.4. 12.Remote history of nicotine dependence. 13.FULL CODE. RECOMMENDATIONS AND DISCUSSION: In this 59-year-old gentleman who presented with multiple complex medical issues, we will monitor the patient closely, continue the current medications, continue with symptomatic treatment. Will initiate broad-spectrum IV antibiotics. Obtain cultures. Infectious disease evaluation. Resume the home medications once it is confirmed. DVT prophylaxis. PT/OT evaluation, possible ECF rehab. Guarded prognosis because of multiple complex medical issues. Further recommendations to follow. See orders for further details. MMODL / IJN: [id number] / MTDD
[2020-05-09] MEDS: PIPERACILLIN-TAZOBACTAM 3.375 GM in SODIUM CHLORIDE 0.9% 100 ML IVPB SCH ×4 (00:43→22:59)
[2020-05-09] MEDS: SODIUM CHLORIDE 0.9% 1,000 ML IV SCH ×2 (00:44→16:37)
[2020-05-09] MEDS: oxyCODONE-APAP 5-325MG 1 EACH TAB PO PRN ×6 (00:46→22:59)
[2020-05-09 06:08] LABS: Anisocytosis Slight; Basophils % (A) 0 %; Eosinophils # (A) 0.5 k/uL (0-0.7); Eosinophils % (A) 5 %; HCT 30.7 % (39.0-53.0); Hypochromasia Moderate; Lymphocytes % (A) 21 %; MCH 31.8 pg (25.0-35.0); MCHC 32.4 g/dL (31.0-37.0); MCV 97.9 fL (80.0-100.0); Macrocytosis Slight; Mean Platelet Volume 7.4; Monocytes # (A) 0.9 k/uL (0-1.0); Monocytes % (A) 9 %; Neutrophils # (A) 5.9 k/uL (1.3-7.7); Neutrophils % (A) 62 %; Platelet Count 263 k/uL (150-450); Poikilocytosis Slight; RBC 3.13 m/uL (4.30-5.90); WBC 9.5 k/uL (3.8-10.6)
[2020-05-09 06:16] LABS: African American GFR (CKD) >90 (>60 ml/min/1.73 sqM); Anion Gap 6 mmol/L; Blood Urea Nitrogen 11 mg/dL (9-20); Carbon Dioxide 26 mmol/L (22-30); Chloride 106 mmol/L (98-107); Glucose 99 mg/dL (74-99); Non-African American GFR(CKD) >90 (>60 ml/min/1.73 sqM); Potassium 3.7 mmol/L (3.5-5.1); Sodium 138 mmol/L (137-145)
[2020-05-09 07:34] LABS: Glucose,Whole Blood 116 mg/dL (75-99)
[2020-05-09] MEDS: PANTOPRAZOLE 40 MG/10 ML VIAL IV SCH (08:31)
[2020-05-09] MEDS: HEPARIN SODIUM,PORCINE 5,000 UNIT/ML 1 ML VIAL SQ SCH ×2 (08:33→20:04)
[2020-05-09 11:33] LABS: Glucose,Whole Blood 124 mg/dL (75-99)
[2020-05-09] MEDS: VANCOMYCIN 2,500 MG in SODIUM CHLORIDE 0.9% 500 ML 500 ML IVPB SCH (12:21)
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
[2020-05-09 16:40] LABS: Glucose,Whole Blood 115 mg/dL (75-99)
[2020-05-09] MEDS ORDERED: MAGNESIUM HYDROXIDE 2,400 MG/10 ML CUP PO PRN (19:13)
[2020-05-09] MEDS ORDERED: ALBUTEROL NEBULIZED 2.5 MG/3 ML INHALATION PRN (19:13)
[2020-05-09] MEDS ORDERED: polyethylene glycoL 3350 17 GM POWD.PACK PO PRN (19:13)
[2020-05-09] MEDS ORDERED: BENZOCAINE/MENTHOL LOZENG 1 EACH LOZENGE MUCOUS MEM PRN (19:13)
[2020-05-09] MEDS ORDERED: NICOTINE POLACRILEX 2 MG GUM BUCCAL PRN (19:13)
[2020-05-09] MEDS ORDERED: MENTHOL (NICE) LOZENGE MUCOUS MEM PRN (19:13)
[2020-05-09] MEDS ORDERED: SODIUM CHLORIDE 0.65% NASAL SPRAY 44 ML BTL NASAL PRN (19:13)
[2020-05-09] MEDS: FERROUS SULFATE 325 MG TAB PO SCH (20:04)
[2020-05-09] MEDS: TOPIRAMATE 100 MG TAB PO SCH (20:05)
[2020-05-09] MEDS: POTASSIUM CHLORIDE ER 20 MEQ TAB.ER PO SCH (20:05)
[2020-05-09] MEDS: MELATONIN 5 MG TABLET PO SCH (20:05)
[2020-05-09] MEDS ORDERED: ACETAMINOPHEN TAB 325 MG TAB PO SCH (21:00)
[2020-05-09] MEDS: MINERAL OIL-WHITE PETROLATUM 120 GM JAR TOPICAL SCH (21:30)
--- NOTE | 2020-05-10 02:33 | PN ---
PROGRESS NOTE DATE OF SERVICE: 05/09/2020 This 59-year-old gentleman admitted with decubitus ulcer, nonhealing and change in mental status, possible sepsis is being closely monitored. Patient started on broad spectrum IV antibiotics. Cultures are still pending. The sensorium is slightly improved at this time. Surgery has seen the patient and recommended no surgical intervention at this time. Continue with Infectious Disease. The patient also had ostomy performed, diversion of stool contents about 3 weeks ago. The patient is being closely monitored. PAST MEDICAL HISTORY: Reviewed. REVIEW OF SYSTEMS: CARDIOVASCULAR SYSTEM: No angina. RESPIRATORY SYSTEM: As mentioned earlier. GI: As mentioned earlier. : No dysuria. NERVOUS SYSTEM: No numbness or weakness. CURRENT MEDICATIONS: Current medications are reviewed and include: Tylenol, Ventolin, Xanax, vitamin C, aspirin, Cepacol, Dulcolax, Bumex, Coreg, iron sulfate, heparin, milk of Magnesia, melatonin. Medication doses are reviewed. PHYSICAL EXAMINATION: The patient is alert and oriented x2. Pulse 97, blood pressure 111/57, respiration 16, temperature 98.2, pulse ox 96% on room air. HEENT: Conjunctivae normal. Neck: No jugular venous distention. CARDIOVASCULAR: S1, S2 muffled. RESPIRATORY: Breath sounds diminished at the bases. A few scattered rhonchi and crackles. ABDOMEN: Soft, nontender, obese. LEGS: No edema, no swelling. NERVOUS SYSTEM: No focal deficits. LABS: Labs at this time shows WBC 9.5, hemoglobin is 10. Glucose noted. ASSESSMENT: 1. Grade 4 sacral decubitus ulcer with possible sepsis and failure of outpatient treatment. 2. Change in mental status, acute metabolic encephalopathy secondary to sepsis. 3. History of asthma, chronic obstructive pulmonary disease. 4. History of congestive heart failure. 5. Diabetes mellitus type 2. 6. History of myocardial infarction. 7. History of sleep apnea. 8. History of polymicrobial organism infection previously including [place]. 9. History of bilateral lower extremity ulcers. 10.History of coronary artery disease, stent. 11.History of anxiety. 12.Super morbid obesity with body mass index of 57.4. 13.Remote history of nicotine dependence. 14.FULL CODE. RECOMMENDATIONS AND DISCUSSION: Recommend to continue current medications, continue symptomatic treatment. Otherwise, we will continue to monitor. DVT prophylaxis. Resume the home medications. Continue the antibiotics. Surgical evaluation appreciated. We are following the patient closely with Infectious Disease. Guarded prognosis. Further recommendations to follow. See orders for details. MMODL / IJN: [id number] /
[2020-05-10] MEDS: oxyCODONE-APAP 5-325MG 1 EACH TAB PO PRN ×5 (03:39→20:20)
[2020-05-10] MEDS: VANCOMYCIN 2,500 MG in SODIUM CHLORIDE 0.9% 500 ML 500 ML IVPB SCH ×2 (03:40→19:29)
[2020-05-10 06:32] LABS: Anisocytosis Slight; Basophils % (A) 0 %; Eosinophils # (A) 0.5 k/uL (0-0.7); Eosinophils % (A) 5 %; HGB 9.1 gm/dL (13.0-17.5); Hypochromasia Moderate; Lymphocytes # (A) 1.6 k/uL (1.0-4.8); Lymphocytes % (A) 16 %; MCH 29.9 pg (25.0-35.0); MCHC 30.2 g/dL (31.0-37.0); MCV 99.1 fL (80.0-100.0); Macrocytosis Slight; Mean Platelet Volume 7.6; Monocytes % (A) 10 %; Neutrophils # (A) 6.7 k/uL (1.3-7.7); Neutrophils % (A) 67 %; Platelet Count 277 k/uL (150-450); Poikilocytosis Slight; RBC 3.02 m/uL (4.30-5.90)
[2020-05-10 07:23] LABS: Glucose,Whole Blood 103 mg/dL (75-99)
[2020-05-10] MEDS ORDERED: LIQUACEL PO SCH (08:00)
[2020-05-10] MEDS: HEPARIN SODIUM,PORCINE 5,000 UNIT/ML 1 ML VIAL SQ SCH ×2 (08:05→20:20)
[2020-05-10] MEDS: MULTIVITAMINS, THERA 1 EACH TAB PO SCH (08:06)
[2020-05-10] MEDS: POTASSIUM CHLORIDE ER 20 MEQ TAB.ER PO SCH ×2 (08:06→20:21)
[2020-05-10] MEDS: ASPIRIN 81 MG PO SCH (08:06)
[2020-05-10] MEDS: SPIRONOLACTONE 25 MG TAB PO SCH (08:06)
[2020-05-10] MEDS: ASCORBIC ACID 500 MG TAB PO SCH (08:06)
[2020-05-10] MEDS: bisacodyL 5 MG TABLET.DR PO SCH (08:07)
[2020-05-10] MEDS: carvediloL 3.125 MG TAB PO SCH ×2 (08:07→16:17)
[2020-05-10] MEDS: LORATADINE 10 MG TAB PO SCH (08:08)
[2020-05-10] MEDS: MAGNESIUM OXIDE 400 MG TAB PO SCH (08:10)
[2020-05-10] MEDS: BUMETANIDE 1 MG TAB PO SCH (08:11)
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
[2020-05-10] MEDS ORDERED: CEFEPIME 2 GM in SODIUM CHLORIDE 0.9% 100 ML IVPB ONE (09:30)
[2020-05-10 09:34] LABS: African American GFR (CKD) 119.7 (60.0-200.0); Anion Gap 6.8 mmol/L (4.00-12.00); BUN/Creat Ratio 15.71 Ratio (12.00-20.00); Calcium 7.7 mg/dL (8.7-10.3); Carbon Dioxide 28.2 mmol/L (21.6-31.8); Non-African American GFR(CKD) 103.3 (60.0-200.0); Potassium 3.4 mmol/L (3.5-5.5)
[2020-05-10] MEDS: PIPERACILLIN-TAZOBACTAM 3.375 GM in SODIUM CHLORIDE 0.9% 100 ML IVPB SCH (10:16)
[2020-05-10] MEDS: PANTOPRAZOLE 40 MG/10 ML VIAL IV SCH (11:05)
--- NOTE | 2020-05-10 11:18 | XR ---
EXAMINATION TYPE: XR chest 1V portable DATE OF EXAM: 05/10/2020 Comparison: None Clinical History: 59 year-old male shortness of breath, CHF Findings: Heart borderline enlarged. Mild interstitial prominence. No consolidation or pleural effusion. Old he aled left clavicular shaft deformity. Old healed fracture deformities lateral left ribs. Impression: Borderline heart size and mild interstitial prominence. Early, mild pulmonary vascular congestion not excluded. No evidence for pulmonary edema or focal infiltrate.
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
[2020-05-10 11:47] VITALS: BMI 57.4
[2020-05-10 12:06] LABS: Glucose,Whole Blood 108 mg/dL (75-99)
--- NOTE | 2020-05-10 14:03 | P.PN ---
Subjective Progress Note Date: 05/10/20 CHIEF COMPLAINT: Sacral decubitus ulcer HISTORY OF PRESENT ILLNESS: Patient seen and examined with Dr. Biggs. Patient is being followed for his sacral decubitus ulcer. Also, his stoma there is separation at the ostomy junction. Patient is afebrile WBC 10 PHYSICAL EXAM: VITAL SIGNS: Reviewed. GENERAL: Well-developed in no acute distress. HEENT: No sclera icterus. Extraocular movements grossly intact. Moist buccal mucosa. Head is atraumatic, normocephalic. ABDOMEN: Soft. Obese nondistended colostomy present on the right side of abdomen with stool. Ostomy site there is separation at the ostomy junction NEUROLOGIC: Alert and oriented. Cranial nerves II through XII grossly intact. ASSESSMENT: 1. Stage 4 sacral decubitus ulcer with sepsis and failure of outpatient treatment 2. Status post ostomy performed for diversion of stool contents for treatment of stage IV decubitus ulcer about 3 weeks ago. PLAN: -No plans for surgical intervention -Consult for wound care nurse -Recommend that patient follows up with his prior surgeon Physician Insurance Special Agent note has been reviewed by physician. Signing provider agrees with the documented findings, assessment, and plan of care. Objective - Vital Signs Vital signs: Vital Signs Temp 97.7 F 05/10/20 11:00 Pulse 78 05/10/20 12:57 Resp 17 05/10/20 12:57 BP 94/57 05/10/20 11:00 Pulse Ox 97 05/10/20 11:00 Intake & Output 05/09/20 05/10/20 05/10/20 18:59 06:59 18:59 Intake Total 540 1020 Output Total 700 Balance 540 320 Weight 181.437 kg 181.437 kg Intake: Intake, IV Titration 1020 Amount Piperacillin-Tazobactam 3 200 .375 gm In Sodium Chloride 0.9% 100 ml @ 25 mls/hr IVPB Q8HR [facility] Rx# :[id number] Sodium Chloride 0.9% 1, 320 000 ml @ 20 mls/hr IV . Q24H [facility] Rx#:[id number] Vancomycin 2,500 mg In 500 Sodium Chloride 0.9% 500 ml 500 ml @ 167 mls/hr IVPB Q16H [facility] Rx#: [id number] Oral 540 Output: Urine 700 Other: Voiding Method Indwelling Catheter Indwelling Catheter Indwelling Catheter # Voids 1 - Labs CBC & Chem 7: 05/10/20 05:48 05/10/20 05:48 Labs: Abnormal Lab Results - Last 24 Hours (Table) 05/09/20 05/10/20 05/10/20 Range/Units 16:39 05:48 05:48 RBC 3.02 L (4.30-5.90) m/uL Hgb 9.1 L (13.0-17.5) gm/dL Hct 30.0 L (39.0-53.0) % MCHC 30.2 L (31.0-37.0) g/dL RDW 19.0 H (11.5-15.5) % Potassium 3.4 L (3.5-5.5) mmol/L POC Glucose (mg/dL) 115 H (75-99) mg/dL Calcium 7.7 L (8.7-10.3) mg/dL 05/10/20 05/10/20 Range/Units 07:21 11:51 RBC (4.30-5.90) m/uL Hgb (13.0-17.5) gm/dL Hct (39.0-53.0) % MCHC (31.0-37.0) g/dL RDW (11.5-15.5) % Potassium (3.5-5.5) mmol/L POC Glucose (mg/dL) 103 H 108 H (75-99) mg/dL Calcium (8.7-10.3) mg/dL Microbiology - Last 24 Hours (Table) 05/08/20 20:50 Urine Culture - Final Urine,Catheterized 05/08/20 20:50 Blood Culture - Preliminary Blood No Growth after 24 hours 05/08/20 23:29 Gram Stain - Preliminary Back Wound Culture - Preliminary
--- NOTE | 2020-05-10 15:22 | PN ---
PROGRESS NOTE DATE OF SERVICE: 05/10/2020 REASON FOR FOLLOWUP: 1. Infected sacral pressure ulcer. 2. Right heel wound. INTERVAL HISTORY: The patient is currently afebrile. He is breathing comfortably. No chest pain or cough. No abdominal pain. Pain to the sacral area but no worsening. PHYSICAL EXAMINATION: Blood pressure is 112/73 with a pulse of 96, temperature 97.7. He is 94% on room air. General description is a middle-aged male lying in bed in no distress. RESPIRATORY SYSTEM: Unlabored breathing. Clear to auscultation anteriorly. HEART: S1, S2. Regular rate and rhythm. ABDOMEN: Soft. No tenderness. Wound to the sacral area is currently dressed up. LABS: Hemoglobin is 9.1, white count 10.0, BUN of 11, creatinine 0.7. Wound culture currently pending. Blood culture so far negative. DIAGNOSTIC IMPRESSION AND PLAN: 1. Patient with a stage IV infected sacral pressure ulcer that needs surgical debridement and possible wound V.A.C. placement with a plan for possible transfer to tertiary care. Continue with cefepime and local wound care as ordered. 2. Right heel wound. Keep the area off pressure. MMODL / IJN: [id number] / MTDD
[2020-05-10] MEDS ORDERED: Magnesium Replacement Protocol 1 EACH MISC MISCELLANE PRN (15:33)
[2020-05-10] MEDS ORDERED: Potassium Replacement Protocol 1 EACH MISC MISCELLANE PRN (15:33)
--- NOTE | 2020-05-10 16:43 | PN ---
PROGRESS NOTE DATE OF SERVICE: 05/10/2020 This 59-year-old gentleman admitted with a significant sacral decubitus ulcer and stage II ulcer of the right heel and possible sepsis is being closely monitored. The patient also complains of severe pain. Patient also had recent diverting colostomy in [place], and the colostomy site had some erosions. But according to Surgery, they are not planning surgical intervention. Patient does not want to return to [place], according to him. Past medical history reviewed. REVIEW OF SYSTEMS: CARDIOVASCULAR SYSTEM: No angina, palpitations. RESPIRATORY SYSTEM: As mentioned earlier. GI: As mentioned earlier. : No dysuria or retention. NERVOUS SYSTEM: As mentioned earlier. CURRENT MEDICATIONS: Reviewed. They include Tylenol p.r.n., Ventolin, Xanax, vitamin C, aspirin, Cepacol, dulcolax, Bumex, Coreg, cefepime, heparin, Dilaudid, Claritin, magnesium oxide. Medication and doses are reviewed. PHYSICAL EXAMINATION: Patient is alert, oriented x2. Pulse 78, blood pressure 94/57, respiration 17, temperature 97.7, pulse ox 97% on room air. HEENT: Conjunctivae normal. NECK: No jugular venous distention. CARDIOVASCULAR SYSTEM: S1, S2 muffled. RESPIRATORY SYSTEM: Breath sounds diminished at the bases. A few scattered rhonchi and crackles. ABDOMEN: Soft, obese, non-tender. No guarding. No rigidity. LEGS: Significant ulcerations present on the right heel and sacral decubitus also present. Colostomy with some erosions and some erythema present. NERVOUS SYSTEM: Diffusely weak. LABS: WBC 10, hemoglobin 9.1, sodium 142, potassium 3.4. ASSESSMENT: 1. Grade 4 sacral decubitus ulcer with possible sepsis with failure of outpatient treatment. 2. Right heel ulcer. 3. Change in mental status, acute metabolic encephalopathy, possibly secondary to sepsis. 4. History of asthma, chronic obstructive pulmonary disease. 5. History of congestive heart failure. 6. Diabetes mellitus, type 2. 7. History of myocardial infarction. 8. History of sleep apnea. 9. History of polymicrobial organisms and infection, including possibly Kirstie previously. 10.History of bilateral lower extremity ulcers. 11.History of coronary artery disease, stent. 12.History of anxiety. 13.Super morbid obesity with body mass index of 57.4. 14.Remote history of nicotine dependence. 15.Gait dysfunction. 16.FULL CODE. 17.History of noncompliance. RECOMMENDATIONS AND DISCUSSION: I recommend to continue current medications, continue with the monitoring, continue symptomatic treatment. Continue with the broad-spectrum IV antibiotics. Follow the cultures. Otherwise, closely follow with Surgery, Vascular Surgery, Wound Care as well as Infectious Disease. Further recommendations to follow. MMODL / IJN: [id number] /
[2020-05-10 17:17] LABS: Glucose,Whole Blood 114 mg/dL (75-99)
[2020-05-10] MEDS: MINERAL OIL-WHITE PETROLATUM 120 GM JAR TOPICAL SCH ×2 (18:45→20:21)
[2020-05-10] MEDS: SODIUM CHLORIDE 0.9% 1,000 ML IV SCH (19:29)
[2020-05-10] MEDS: MELATONIN 5 MG TABLET PO SCH (20:21)
[2020-05-10] MEDS: TOPIRAMATE 100 MG TAB PO SCH (20:21)
[2020-05-10 20:42] LABS: Glucose,Whole Blood 136 mg/dL (75-99)
[2020-05-10] MEDS ORDERED: [UNRECOGNIZED DRUG - OTHER] TOPICAL SCH (21:00)
[2020-05-10] MEDS: CEFEPIME 2 GM in SODIUM CHLORIDE 0.9% 100 ML IVPB SCH (23:45)
[2020-05-11] MEDS: oxyCODONE-APAP 5-325MG 1 EACH TAB PO PRN ×6 (00:20→21:40)
[2020-05-11 06:37] LABS: Anisocytosis Slight; Basophils % (A) 0 %; Eosinophils # (A) 0.5 k/uL (0-0.7); Eosinophils % (A) 5 %; HCT 30.4 % (39.0-53.0); HGB 9.4 gm/dL (13.0-17.5); Hypochromasia Moderate; Lymphocytes # (A) 1.7 k/uL (1.0-4.8); Lymphocytes % (A) 16 %; MCH 30.6 pg (25.0-35.0); MCHC 30.8 g/dL (31.0-37.0); MCV 99.4 fL (80.0-100.0); Macrocytosis Slight; Mean Platelet Volume 7.7; Monocytes # (A) 1.1 k/uL (0-1.0); Monocytes % (A) 10 %; Neutrophils # (A) 6.9 k/uL (1.3-7.7); Neutrophils % (A) 66 %; Platelet Count 332 k/uL (150-450); Poikilocytosis Slight; RBC 3.05 m/uL (4.30-5.90); RDW 18.8 % (11.5-15.5); WBC 10.4 k/uL (3.8-10.6)
[2020-05-11 06:51] LABS: Glucose,Whole Blood 103 mg/dL (75-99)
[2020-05-11] MEDS: bisacodyL 5 MG TABLET.DR PO SCH (07:25)
[2020-05-11] MEDS: BUMETANIDE 1 MG TAB PO SCH (07:25)
[2020-05-11] MEDS: POTASSIUM CHLORIDE ER 20 MEQ TAB.ER PO SCH ×2 (07:26→21:40)
[2020-05-11] MEDS: LORATADINE 10 MG TAB PO SCH (07:26)
[2020-05-11] MEDS: MULTIVITAMINS, THERA 1 EACH TAB PO SCH (07:26)
[2020-05-11] MEDS: MAGNESIUM OXIDE 400 MG TAB PO SCH (07:27)
[2020-05-11] MEDS: SPIRONOLACTONE 25 MG TAB PO SCH (07:27)
[2020-05-11] MEDS: carvediloL 3.125 MG TAB PO SCH ×2 (07:27→17:39)
[2020-05-11] MEDS: ASCORBIC ACID 500 MG TAB PO SCH (07:28)
[2020-05-11] MEDS: ASPIRIN 81 MG PO SCH (07:28)
[2020-05-11] MEDS: KETOCONAZOLE 2% SHAMPOO 1 APPLIC/ML TOPICAL SCH (09:21)
[2020-05-11] MEDS: HEPARIN SODIUM,PORCINE 5,000 UNIT/ML 1 ML VIAL SQ SCH ×2 (09:21→21:39)
[2020-05-11] MEDS: CEFEPIME 2 GM in SODIUM CHLORIDE 0.9% 100 ML IVPB SCH ×2 (09:22→20:06)
[2020-05-11] MEDS: PANTOPRAZOLE 40 MG TABLET PO SCH (09:22)
[2020-05-11] MEDS: MINERAL OIL-WHITE PETROLATUM 120 GM JAR TOPICAL SCH ×2 (09:34→21:40)
[2020-05-11 10:18] LABS: African American GFR (CKD) 119.7 (60.0-200.0); Anion Gap 8.6 mmol/L (4.00-12.00); BUN/Creat Ratio 17.14 Ratio (12.00-20.00); Carbon Dioxide 25.4 mmol/L (21.6-31.8); Magnesium 1.6 mg/dL (1.5-2.4); Non-African American GFR(CKD) 103.3 (60.0-200.0); Potassium 3.6 mmol/L (3.5-5.5)
[2020-05-11] MEDS ORDERED: LIDOCAINE 1% INJ 10MG/ML (20 ML MDV) SQ ONE (11:44)
--- NOTE | 2020-05-11 13:12 | IR ---
PICC LINE PLACEMENT: HISTORY: Infection requiring long-term antibiotic therapy PROCEDURE: Ultrasound and fluoroscopic guidance of PICC line placement. COMPLICATIONS: None ANESTHESIA: 1. 1% Lidocaine locally. FINDINGS/TECHNIQUE: The procedure was explained to the patient. The risks, complications, benefits and alternatives were discussed and any questions were answered. Informed consent was obtained. The patient was placed supine on the fluoroscopic table and prepped and draped in the usual sterile fash ion. Utilizing a 21 gauge needle and sonographic and fluoroscopic guidance, access in the left basi lic vein was achieved and there is placement of a 0.018 guidewire. The vein is patent. A 4-F sheath was placed over the guidewire. The guidewire and dilator were removed and a 4-F. PICC line was plac ed through the sheath with the tip at the level of the SVC. The sheath was removed, the catheter was flushed and sutured into position. The patient was stable throughout the procedure and remained sta ble upon discharge from the Department of Radiology. The vein puncture was patent under ultrasound. A granados scale image was obtained to document patency of the vein punctured. All elements of the maximal barrier technique were utilized. FLUOROSCOPY TIME: 0.1 minute, one image submitted. IMPRESSION: Successful PICC line placement under ultrasound and fluoroscopic guidance.
--- NOTE | 2020-05-11 13:48 | P.PN ---
Subjective Progress Note Date: 05/11/20 CHIEF COMPLAINT: Sacral decubitus ulcer HISTORY OF PRESENT ILLNESS: Patient seen and examined with Dr. Biggs. Patient is being followed for his sacral decubitus ulcer. Also, his stoma there is separation at the ostomy junction. Patient is afebrile WBC 10.4 PHYSICAL EXAM: VITAL SIGNS: Reviewed. GENERAL: Well-developed in no acute distress. HEENT: No sclera icterus. Extraocular movements grossly intact. Moist buccal mucosa. Head is atraumatic, normocephalic. ABDOMEN: Soft. Obese nondistended colostomy present on the right side of abdomen with stool. Ostomy site there is separation at the ostomy junction NEUROLOGIC: Alert and oriented. Cranial nerves II through XII grossly intact. ASSESSMENT: 1. Stage 4 sacral decubitus ulcer with sepsis and failure of outpatient treatment 2. Status post ostomy performed for diversion of stool contents for treatment of stage IV decubitus ulcer about 3 weeks ago. PLAN: -No plans for surgical intervention -Continue wound care -Recommend that patient follows up with his prior surgeon Physician [employer] note has been reviewed by physician. Signing provider agrees with the documented findings, assessment, and plan of care. Objective - Vital Signs Vital signs: Vital Signs Temp 98.0 F 05/11/20 07:00 Pulse 93 05/11/20 07:00 Resp 16 05/11/20 07:00 BP 100/64 05/11/20 07:00 Pulse Ox 96 05/11/20 07:00 Intake & Output 05/10/20 05/11/20 05/11/20 18:59 06:59 18:59 Intake Total 222 230 Output Total 500 800 90 Balance -500 -578 140 Weight 181.437 kg Intake: Oral 222 230 Output: Urine 500 800 90 Other: Voiding Method Indwelling Catheter Indwelling Catheter - Labs CBC & Chem 7: 05/11/20 05:36 05/11/20 05:36 Labs: Abnormal Lab Results - Last 24 Hours (Table) 05/10/20 05/10/20 05/11/20 Range/Units 17:15 20:39 05:36 RBC 3.05 L (4.30-5.90) m/uL Hgb 9.4 L (13.0-17.5) gm/dL Hct 30.4 L (39.0-53.0) % MCHC 30.8 L (31.0-37.0) g/dL RDW 18.8 H (11.5-15.5) % Monocytes # 1.1 H (0-1.0) k/uL POC Glucose (mg/dL) 114 H 136 H (75-99) mg/dL Calcium (8.7-10.3) mg/dL 05/11/20 05/11/20 Range/Units 05:36 06:50 RBC (4.30-5.90) m/uL Hgb (13.0-17.5) gm/dL Hct (39.0-53.0) % MCHC (31.0-37.0) g/dL RDW (11.5-15.5) % Monocytes # (0-1.0) k/uL POC Glucose (mg/dL) 103 H (75-99) mg/dL Calcium 8.0 L (8.7-10.3) mg/dL Microbiology - Last 24 Hours (Table) 05/08/20 23:29 Gram Stain - Final Back Wound Culture - Final 05/08/20 20:50 Blood Culture - Preliminary Blood No Growth after 48 hours 05/08/20 20:50 Urine Culture - Final Urine,Catheterized
[2020-05-11] MEDS: VANCOMYCIN 2,500 MG in SODIUM CHLORIDE 0.9% 500 ML 500 ML IVPB SCH (15:49)
--- NOTE | 2020-05-11 16:23 | PN ---
PROGRESS NOTE DATE OF SERVICE: 05/11/2020 This 59-year-old gentleman who was admitted with significant sacral decubitus ulcer as well as right heel ulcer also had colostomy. The bypass colostomy was recently done elsewhere from [place]. The patient also had change in mental status, metabolic encephalopathy. Patient is receiving multiple antibiotics. Cultures are negative so far. Patient is being closely monitored. Patient has extensive decubitus ulcer on the back. Multiple consultants are following the patient closely. Past medical history reviewed. Review of systems could not be taken; the patient is still mildly confused. CURRENT MEDICATIONS: Reviewed. They include Tylenol p.r.n., Ventolin, Xanax, vitamin C, aspirin, Cepacol, Bumex, Coreg, cefepime, iron sulfate, heparin, Dilaudid, Nizoral, Claritin, milk of magnesia, p.r.n. medications, Zofran, Percocet, Protonix, MiraLAX. PHYSICAL EXAMINATION: Patient is alert, oriented x3. Pulse 93, blood pressure 100/64, respirations 16, temperature 98 degrees, pulse ox 96% on room air. HEENT: Conjunctivae normal. NECK: No jugular venous distention. CARDIOVASCULAR SYSTEM: S1, S2 muffled. RESPIRATORY SYSTEM: Breath sounds diminished at the bases. A few scattered rhonchi and crackles. ABDOMEN: Soft, obese, non-tender. LEGS: No edema. No swelling. NERVOUS SYSTEM: No focal deficit. LABS: WBC 10.3, hemoglobin 9.4, glucose 103. Other labs are noted. ASSESSMENT: 1. Grade 4 sacral decubitus ulcer with possible sepsis and failure of outpatient treatment. 2. Right heel ulcer. 3. Change in mental status, metabolic encephalopathy, acute, possibly secondary to sepsis. 4. History of asthma, chronic obstructive pulmonary disease. 5. History of recent diverting colostomy. 6. History of congestive heart failure, ejection fraction unknown. 7. Diabetes mellitus, type 2. 8. History of myocardial infarction. 9. History of sleep apnea. 10.History of polymicrobial organism infection, including possibly Kirstie previously. 11.History of bilateral lower extremity ulcers. 12.History of coronary artery disease, stent. 13.History of anxiety. 14.Super morbid obesity with body mass index of 57.4. 15.Remote history of nicotine dependence. 16.Gait dysfunction. 17.History of noncompliance. 18.FULL CODE. RECOMMENDATIONS AND DISCUSSION: I recommend to continue current medications, continue with the monitoring, symptomatic treatment. Continue with the antibiotics. Follow the cultures. Follow closely with Surgery as well as Infectious Disease. Prognosis extremely guarded because of multiple complex medical issues. Further recommendations to follow. JOHNL / IJN: [id number] / MTDD
[2020-05-11 17:23] LABS: Glucose,Whole Blood 101 mg/dL (75-99)
--- NOTE | 2020-05-11 17:32 | PN ---
PROGRESS NOTE DATE OF SERVICE: 05/11/2020 REASON FOR FOLLOWUP: 1. Infected sacral pressure ulcer. 2. Right heel wound. INTERVAL HISTORY: The patient is currently afebrile. The patient is breathing comfortably. He is complaining of pain to the right heel area. No chest pain. No cough. No abdominal pain or diarrhea. PHYSICAL EXAMINATION: Blood pressure 100/64 with a pulse of 93, temperature 98. He is 96% on room air. General description is a middle-aged male lying in bed in no distress. RESPIRATORY SYSTEM: Unlabored breathing. Clear to auscultation anteriorly. HEART: S1, S2. Regular rate and rhythm. ABDOMEN: Soft. No tenderness. LABS: Hemoglobin 9.4, white count 10.4, creatinine 0.7. DIAGNOSTIC IMPRESSION AND PLAN: Patient with extensive sacral pressure ulcer, stage IV, with secondary cellulitis. Patient needs extensive debridement, possible evaluation by Plastic Surgery, and will benefit from care at the tertiary care, as antibiotic alone will not heal this wound and he needs more extensive local wound care. Will discuss further with the admitting team. Continue with supportive care. MMODL / IJN: [id number] /
[2020-05-11] MEDS: FERROUS SULFATE 325 MG TAB PO SCH (20:06)
[2020-05-11] MEDS: SODIUM CHLORIDE 0.9% 1,000 ML IV SCH (20:06)
[2020-05-11] MEDS: MELATONIN 5 MG TABLET PO SCH (21:39)
[2020-05-11] MEDS: TOPIRAMATE 100 MG TAB PO SCH (21:40)
[2020-05-12] MEDS: oxyCODONE-APAP 5-325MG 1 EACH TAB PO PRN ×6 (01:36→22:04)
[2020-05-12] MEDS ORDERED: VANCOMYCIN TROUGH DUE 1 EACH MISC MISCELLANE ONE ×2 (03:00→08:30)
[2020-05-12] MEDS: VANCOMYCIN 2,500 MG in SODIUM CHLORIDE 0.9% 500 ML 500 ML IVPB SCH (04:54)
[2020-05-12 07:09] LABS: Glucose,Whole Blood 104 mg/dL (75-99)
[2020-05-12] MEDS: POTASSIUM CHLORIDE ER 20 MEQ TAB.ER PO SCH ×2 (08:28→20:08)
[2020-05-12] MEDS: SPIRONOLACTONE 25 MG TAB PO SCH (08:28)
[2020-05-12] MEDS: MAGNESIUM OXIDE 400 MG TAB PO SCH (08:28)
[2020-05-12] MEDS: MULTIVITAMINS, THERA 1 EACH TAB PO SCH (08:28)
[2020-05-12] MEDS: ASPIRIN 81 MG PO SCH (08:28)
[2020-05-12] MEDS: ASCORBIC ACID 500 MG TAB PO SCH (08:28)
[2020-05-12] MEDS: HEPARIN SODIUM,PORCINE 5,000 UNIT/ML 1 ML VIAL SQ SCH ×2 (08:28→20:08)
[2020-05-12] MEDS: BUMETANIDE 1 MG TAB PO SCH (08:29)
[2020-05-12] MEDS: bisacodyL 5 MG TABLET.DR PO SCH (08:29)
[2020-05-12] MEDS: carvediloL 3.125 MG TAB PO SCH ×2 (08:29→17:22)
[2020-05-12] MEDS: LORATADINE 10 MG TAB PO SCH (08:29)
[2020-05-12] MEDS: PANTOPRAZOLE 40 MG TABLET PO SCH (08:29)
[2020-05-12] MEDS: CEFEPIME 2 GM in SODIUM CHLORIDE 0.9% 100 ML IVPB SCH ×2 (08:30→20:08)
[2020-05-12] MEDS: MINERAL OIL-WHITE PETROLATUM 120 GM JAR TOPICAL SCH ×2 (08:30→20:08)
[2020-05-12] MEDS ORDERED: VANCOMYCIN 2,500 MG in SODIUM CHLORIDE 0.9% 500 ML 500 ML IVPB SCH (09:00)
[2020-05-12] MEDS ORDERED: VANCOMYCIN IV PER PHARMACY 1 EACH MISC MISCELLANE PRN (09:21)
[2020-05-12 11:56] LABS: Glucose,Whole Blood 137 mg/dL (75-99)
--- NOTE | 2020-05-12 14:08 | PN ---
PROGRESS NOTE DATE OF SERVICE: 05/12/2020 REASON FOR FOLLOWUP: 1. Infected sacral pressure ulcer. 2. Right heel wound. INTERVAL HISTORY: Patient is currently afebrile. The patient is breathing comfortably. Has been complaining of pain to the right heel and back wound area. No chest pain, shortness of breath or cough. No abdominal pain. No diarrhea. PHYSICAL EXAMINATION: Blood pressure 152/73 with a pulse of 89, temperature 97.4. He is 96% on room air. General description is a middle-aged male lying in bed in no distress. Respiratory system: Unlabored breathing, clear to auscultation anteriorly. Heart S1, S2. Regular rate and rhythm. Abdomen is soft, no tenderness. LABORATORY DATA: No new labs have been obtained today. DIAGNOSTIC IMPRESSION AND PLAN: Patient with stage IV sacral pressure ulcer with secondary cellulitis. Wound culture reported is negative so far. The patient's Vanco trough is elevated and needs to be cut back on the dose. Patient needs surgical debridement and deep culture and adjust antibiotic further based on those. Results were discussed with his admitting physician and possible transfer to tertiary care. Local wound care to continue as ordered. MMODL / IJN: [id number] /
--- NOTE | 2020-05-12 16:53 | PN ---
PROGRESS NOTE DATE OF SERVICE: 05/12/2020 This 59-year-old gentleman was admitted for sacral decubitus ulcer, had possible sepsis. The patient had very extensive ulceration but the surgeons are not able to debride. The patient had a PICC line insertion at this time. The patient being closely monitored. Patient on broad IV antibiotics. The most recent cultures are negative at this time. Even the past culture showed multiple organisms. Past medical history reviewed. REVIEW OF SYSTEMS: CARDIOVASCULAR: No angina or palpitations. RESPIRATORY: As mentioned earlier. GI: As mentioned earlier. no dysuria. NERVOUS SYSTEM: No numbness or weakness. CURRENT MEDICATIONS: Tylenol, Ventolin, Xanax, vitamin C, aspirin, Dulcolax, Claritin and magnesium oxide. PHYSICAL EXAM: Patient is alert and oriented times three. Pulse 93, blood pressure 115/62, respiration 17, temperature 98.7, pulse ox 97% on room air. HEENT: Conjunctivae normal. NECK: No JVD. CARDIOVASCULAR: S1, S2. RESPIRATORY: Breath sounds diminished in the bases. No rhonchi. No crackles. ABDOMEN: Soft, nontender. LEGS: No edema. No swelling. NERVOUS SYSTEM: Diffusely weak. Examination of the back: Significant decubitus ulcer present. LABS: Vancomycin trough noted. Glucose noted. WBC 10.2, hemoglobin 9.4. Other labs are noted. ASSESSMENT: 1. Grade 4 sacral decubitus ulcer with possible sepsis with failure of outpatient treatment. 2. Right heel ulcer. 3. Change in mental status, metabolic encephalopathy, acute, possibly secondary to sepsis. 4. History of asthma/chronic obstructive pulmonary disease. 5. History of recent diverting colostomy. 6. History of congestive heart failure, ejection fraction unknown. 7. Diabetes mellitus type 2. 8. History of myocardial infarction. 9. History of sleep apnea. 10.History of polymicrobial organisms previously including Kirstie albicans. 11.History of bilateral lower extremity ulcers. 12.History of coronary artery disease/stent. 13.History of anxiety. 14.Super morbid obesity with body mass index of 57.4. 15.Remote history of nicotine dependence. 16.Gait dysfunction. 17.History of noncompliance. 18.FULL CODE. RECOMMENDATIONS AND DISCUSSION: Recommend to continue current medications, monitoring and symptomatic treatment. Otherwise, at this time, I recommend to continue the current medications, management and symptomatic treatment. Add Diflucan to the current regimen. DVT prophylaxis. Discuss with Dr. Escamilla. Currently patient is on cefepime. Dr. Escamilla will explore the possibility of transfer to tertiary care center because of extensive decubitus ulcer and further debridement and including possible plastic surgery involvement because of the extensive nature of the lesions. The prognosis is extremely guarded because of multiple complex medical issues. Further recommendations to follow. MMODL / IJN: [id number] / LEENA
[2020-05-12 16:59] LABS: Glucose,Whole Blood 116 mg/dL (75-99)
[2020-05-12] MEDS: MELATONIN 5 MG TABLET PO SCH (20:08)
[2020-05-12] MEDS: SODIUM CHLORIDE 0.9% 1,000 ML IV SCH (20:08)
[2020-05-12] MEDS: TOPIRAMATE 100 MG TAB PO SCH (20:08)
[2020-05-12 20:14] LABS: Glucose,Whole Blood 117 mg/dL (75-99)
[2020-05-13] MEDS: oxyCODONE-APAP 5-325MG 1 EACH TAB PO PRN ×5 (02:08→17:28)
[2020-05-13 06:20] LABS: African American GFR (CKD) >90 (>60 ml/min/1.73 sqM); Anion Gap 5 mmol/L; Blood Urea Nitrogen 11 mg/dL (9-20); Carbon Dioxide 25 mmol/L (22-30); Chloride 108 mmol/L (98-107); Glucose 100 mg/dL (74-99); Non-African American GFR(CKD) >90 (>60 ml/min/1.73 sqM); Potassium 3.9 mmol/L (3.5-5.1); Sodium 138 mmol/L (137-145)
[2020-05-13 06:54] LABS: Glucose,Whole Blood 88 mg/dL (75-99)
[2020-05-13 08:04] VITALS: RESP 17; TEMP 97.5
[2020-05-13] MEDS: SPIRONOLACTONE 25 MG TAB PO SCH (08:29)
[2020-05-13] MEDS: bisacodyL 5 MG TABLET.DR PO SCH (08:29)
[2020-05-13] MEDS: ASCORBIC ACID 500 MG TAB PO SCH (08:29)
[2020-05-13] MEDS: LORATADINE 10 MG TAB PO SCH (08:29)
[2020-05-13] MEDS: PANTOPRAZOLE 40 MG TABLET PO SCH (08:30)
[2020-05-13] MEDS: HEPARIN SODIUM,PORCINE 5,000 UNIT/ML 1 ML VIAL SQ SCH (08:30)
[2020-05-13] MEDS: ASPIRIN 81 MG PO SCH (08:30)
[2020-05-13] MEDS: CEFEPIME 2 GM in SODIUM CHLORIDE 0.9% 100 ML IVPB SCH (08:30)
[2020-05-13] MEDS: MULTIVITAMINS, THERA 1 EACH TAB PO SCH (08:30)
[2020-05-13] MEDS: carvediloL 3.125 MG TAB PO SCH ×2 (08:30→16:59)
[2020-05-13] MEDS: POTASSIUM CHLORIDE ER 20 MEQ TAB.ER PO SCH (08:30)
[2020-05-13] MEDS: MAGNESIUM OXIDE 400 MG TAB PO SCH (08:30)
[2020-05-13] MEDS: BUMETANIDE 1 MG TAB PO SCH (08:31)
[2020-05-13] MEDS ORDERED: VANCOMYCIN 2,500 MG in SODIUM CHLORIDE 0.9% 500 ML 500 ML IVPB ONE (10:00)
[2020-05-13] MEDS: MINERAL OIL-WHITE PETROLATUM 120 GM JAR TOPICAL SCH (10:05)
[2020-05-13] MEDS: KETOCONAZOLE 2% SHAMPOO 1 APPLIC/ML TOPICAL SCH (10:05)
[2020-05-13 12:04] LABS: Glucose,Whole Blood 95 mg/dL (75-99)
[2020-05-13 15:20] VITALS: BP 113/66; PULSE 90
--- NOTE | 2020-05-13 16:21 | DS ---
DISCHARGE SUMMARY DATE OF SERVICE: 05/13/2020 FINAL DIAGNOSES: 1. Grade 4 sacral decubitus ulcer with possible sepsis with failure of outpatient treatment. 2. Right heel ulcer. 3. Change in mental status, metabolic encephalopathy, acute, possibly secondary to sepsis. 4. History of asthma, chronic obstructive pulmonary disease. 5. History of recent diverting colostomy. 6. History of congestive heart failure, ejection fraction unknown. 7. Diabetes type 2. 8. History of myocardial infarction. 9. History of sleep apnea. 10.History of polymicrobial organisms previously including Kirstie albicans. 11.History of bilateral lower extremity ulcers. 12.History of coronary artery disease/stent. 13.History of anxiety. 14.Super morbid obesity with body mass index of 57.4. 15.Remote history of nicotine dependence. 16.Gait dysfunction. 17.History of noncompliance. 18.FULL CODE. DISCHARGE DISPOSITION: The patient being transferred to [facility] for further evaluation. Total time taken [address] Escamilla aware. HISTORY OF PRESENT ILLNESS: This 59-year-old gentleman with a past medical history of multiple medical problems admitted with grade 4 sacral decubitus ulcer and recent diverting colostomy done from elsewhere. The decubitus ulcer was so extensive. The surgeon's recommend and Dr. Escamilla recommended tertiary care center evaluation for possible debridement and involvement including Plastic surgery and wound VAC. Otherwise, the patient was treated with antibiotics. Sensorium did improve and the cultures are negative so far. Otherwise on exam, vitals are stable. Cardiovascular S1, S2. Abdomen soft. Respirations: No rhonchi. Labs: WBC 10.2, hemoglobin 9.4. The patient being transferred in stable condition. Guarded prognosis. Please refer to the medication reconciliation sheet for list of medications. MMODL / IJN: [id number] /
--- NOTE | 2020-05-14 03:02 | PN ---
PROGRESS NOTE DATE OF SERVICE: 05/13/2020 REASON FOR FOLLOWUP: 1. Sacral pressure ulcer. 2. Right heel pressure ulcer. INTERVAL HISTORY: The patient was seen on rounds early this afternoon. The patient has been afebrile. Patient has been breathing comfortably. No chest pain, cough. No abdominal pain, or any worsening pain to the sacral area. PHYSICAL EXAMINATION: Blood pressure 113/66, pulse of 90, temperature 97.5. He is 96% on room air. General description is a middle-aged male lying in bed in no distress. RESPIRATORY SYSTEM: Unlabored breathing, clear to auscultation anteriorly. HEART: S1, S2. Regular rate and rhythm. ABDOMEN: Soft, no tenderness. Wounds are currently dressed up. LABS: Coronavirus PCR was negative. No CBC was done today. Blood culture negative. DIAGNOSTIC IMPRESSION AND PLAN: Patient with stage IV sacral pressure ulcer infected for which the patient had extensive surgical debridement and possible plastics with concern for possible secondary infection covered with cefepime and vancomycin. The patient will be transferred to tertiary care for further care. Plan of care was discussed in detail with the hospitalist at [facility] to physically aid in the transfer process. Continue wound care as ordered. MMODL / IJN: [id number] /
== END 2020-05-13 18:19 | disposition short-term general hospital (02) | DRG 871 ==
LOC: EC 16:06 → 4SSUR 21:26 → OBSVTOIN 05-09 11:39 → 4SSUR 05-09 14:22
PROVIDERS: ADMIT Internal Medicine; ATTEND Internal Medicine
PROC: 02HV33Z Insertion of Infusion Device into Superior Vena Cava, Percutaneous Approach (ICD-10-PCS; principal; 2020-05-11 11:25)
DX: A41.9 Sepsis, unspecified organism (principal); L89.154 Pressure ulcer of sacral region, stage 4; G93.41 Metabolic encephalopathy; G82.20 Paraplegia, unspecified; E87.2 Acidosis; Z68.43 Body mass index [BMI] 50.0-59.9, adult; I13.0 Hypertensive heart and chronic kidney disease with heart failure and stage 1 through stage 4 chronic kidney disease, or unspecified chronic kidney disease; E66.01 Morbid (severe) obesity due to excess calories; I25.10 Atherosclerotic heart disease of native coronary artery without angina pectoris; I50.9 Heart failure, unspecified; E11.621 Type 2 diabetes mellitus with foot ulcer; F41.9 Anxiety disorder, unspecified; Z20.828 Contact with and (suspected) exposure to other viral communicable diseases; J44.9 Chronic obstructive pulmonary disease, unspecified; N18.30 Chronic kidney disease, stage 3 unspecified; L89.612 Pressure ulcer of right heel, stage 2; L97.509 Non-pressure chronic ulcer of other part of unspecified foot with unspecified severity; R26.9 Unspecified abnormalities of gait and mobility; I25.2 Old myocardial infarction; Z79.899 Other long term (current) drug therapy; Z79.82 Long term (current) use of aspirin; Z79.4 Long term (current) use of insulin; Z79.2 Long term (current) use of antibiotics; Z91.09 Other allergy status, other than to drugs and biological substances; Z95.5 Presence of coronary angioplasty implant and graft; Z90.89 Acquired absence of other organs; Z98.890 Other specified postprocedural states; Z80.9 Family history of malignant neoplasm, unspecified; Z87.891 Personal history of nicotine dependence; Z91.19 Patient's noncompliance with other medical treatment and regimen; Z93.3 Colostomy status; Z86.19 Personal history of other infectious and parasitic diseases
CPT/HCPCS: 36573; 71045; 80048; 80202; 83735; 85025; 87040; 87070; 87086; 87205; 87635; 96365; 96366; 96367; 96375; 99284

== ENCOUNTER 2020-05-24 17:16 | Inpatient (IN) | payer MEDICARE, OTHER ==
[2020-05-24] MEDS ORDERED: VANCOMYCIN IV PER PHARMACY 1 EACH MISC MISCELLANE PRN (17:57)
[2020-05-24] MEDS ORDERED: PIPERACILLIN-TAZOBACTAM 3.375 GM in SODIUM CHLORIDE 0.9% 100 ML IVPB STA (18:00)
[2020-05-24] MEDS ORDERED: NALOXONE 0.4 MG/ML 1 ML VIAL IV PRN (18:01)
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
[2020-05-24] MEDS: SODIUM CHLORIDE 0.9% 1,000 ML IV SCH (18:21)
[2020-05-24] MEDS ORDERED: VANCOMYCIN 1,500 MG in SODIUM CHLORIDE 0.9% 250 ML IVPB ONE (18:45)
[2020-05-24] MEDS ORDERED: MAGNESIUM HYDROXIDE 2,400 MG/10 ML CUP PO PRN (20:22)
[2020-05-24] MEDS ORDERED: BENZOCAINE/MENTHOL LOZENG 1 EACH LOZENGE MUCOUS MEM PRN (20:22)
[2020-05-24] MEDS ORDERED: ACETAMINOPHEN TAB 325 MG TAB PO PRN (20:22)
[2020-05-24 20:44] LABS: Glucose,Whole Blood 123 mg/dL (75-99)
[2020-05-24] MEDS ORDERED: [UNRECOGNIZED DRUG - OTHER] TOPICAL SCH (21:00)
[2020-05-24] MEDS ORDERED: EUCERIN TOPICAL SCH (21:00)
[2020-05-24] MEDS: HEPARIN SODIUM,PORCINE 5,000 UNIT/ML 1 ML VIAL SQ SCH (21:10)
[2020-05-24] MEDS: HYDROcodone/APAP 10-325MG 1 EACH TAB PO PRN (21:11)
[2020-05-24] MEDS: TOPIRAMATE 100 MG TAB PO SCH (21:13)
[2020-05-24] MEDS: MELATONIN 5 MG TABLET PO SCH (21:13)
[2020-05-25] MEDS: HEPARIN SODIUM,PORCINE 5,000 UNIT/ML 1 ML VIAL SQ SCH ×2 (01:00→07:04)
[2020-05-25] MEDS: HYDROcodone/APAP 10-325MG 1 EACH TAB PO PRN ×4 (03:04→21:28)
[2020-05-25] MEDS: PANTOPRAZOLE 40 MG TABLET PO SCH (05:30)
[2020-05-25 06:44] LABS: Glucose,Whole Blood 96 mg/dL (75-99)
[2020-05-25] MEDS: INSULIN ASPART (NovoLOG) 100 UNIT/ML VIAL SQ SCH ×4 (06:55→22:11)
[2020-05-25] MEDS: ASPIRIN 81 MG PO SCH (07:01)
[2020-05-25] MEDS: MULTIVITAMINS, THERA 1 EACH TAB PO SCH (07:01)
[2020-05-25] MEDS: bisacodyL 5 MG TABLET.DR PO SCH (07:01)
[2020-05-25] MEDS: carvediloL 3.125 MG TAB PO SCH ×2 (07:02→17:18)
[2020-05-25] MEDS: SPIRONOLACTONE 25 MG TAB PO SCH (07:02)
[2020-05-25] MEDS: VANCOMYCIN 2,500 MG in SODIUM CHLORIDE 0.9% 500 ML 500 ML IVPB SCH ×3 (07:03→23:10)
[2020-05-25] MEDS: ASCORBIC ACID 500 MG TAB PO SCH (07:03)
[2020-05-25] MEDS: BUMETANIDE 1 MG TAB PO SCH (07:03)
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
[2020-05-25 11:02] LABS: Glucose,Whole Blood 103 mg/dL (75-99)
[2020-05-25 11:23] LABS: African American GFR (CKD) >90 (>60 ml/min/1.73 sqM); Non-African American GFR(CKD) >90 (>60 ml/min/1.73 sqM)
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
[2020-05-25] MEDS ORDERED: HEPARIN SODIUM,PORCINE 5,000 UNIT/ML 1 ML VIAL IV PRN (12:28)
[2020-05-25 12:45] LABS: Anisocytosis Slight; Basophils # (A) 0.1 k/uL (0-0.2); Basophils % (A) 0 %; Eosinophils # (A) 0.4 k/uL (0-0.7); Eosinophils % (A) 3 %; HCT 28.7 % (39.0-53.0); HGB 8.8 gm/dL (13.0-17.5); Hypochromasia Moderate; Lymphocytes # (A) 1.9 k/uL (1.0-4.8); Lymphocytes % (A) 15 %; MCH 29.2 pg (25.0-35.0); MCHC 30.6 g/dL (31.0-37.0); MCV 95.6 fL (80.0-100.0); Mean Platelet Volume 6.9; Monocytes # (A) 1.1 k/uL (0-1.0); Monocytes % (A) 8 %; Neutrophils # (A) 9.3 k/uL (1.3-7.7); Neutrophils % (A) 71 %; Platelet Count 478 k/uL (150-450); Poikilocytosis Slight; RDW 16.8 % (11.5-15.5); WBC 13.1 k/uL (3.8-10.6)
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
[2020-05-25 12:52] LABS: INR 1.1 (<1.2); Partial Thromboplastin Time 27.4 sec (22.0-30.0); Prothrombin Time 10.9 sec (9.0-12.0)
[2020-05-25 12:54] VITALS: BMI 57.1
[2020-05-25 12:55] LABS: African American GFR (CKD) >90 (>60 ml/min/1.73 sqM); Anion Gap 4 mmol/L; Blood Urea Nitrogen 11 mg/dL (9-20); Carbon Dioxide 26 mmol/L (22-30); Chloride 105 mmol/L (98-107); Glucose 126 mg/dL (74-99); Non-African American GFR(CKD) >90 (>60 ml/min/1.73 sqM); Potassium 3.3 mmol/L (3.5-5.1); Sodium 135 mmol/L (137-145)
[2020-05-25 13:08] LABS: C Reactive Protein 183.7 mg/L (<10.0)
[2020-05-25 14:07] LABS: Erythrocyte Sedimentation Rate 115 mm/hr (0-15)
[2020-05-25] MEDS: SODIUM CHLORIDE 0.9% 1,000 ML IV SCH ×2 (15:16→21:29)
[2020-05-25] MEDS: HEPARIN SOD,PORK IN 0.45% NACL 25,000 UNIT in 0.45% NACL 1 250ML.BAG IV SCH (15:59)
--- NOTE | 2020-05-25 16:46 | US ---
EXAMINATION TYPE: US venous doppler duplex LE BI DATE OF EXAM: 05/25/2020 2:06 PM COMPARISON: US at [facility] CLINICAL HISTORY: Rule out DVT. Bilateral LE swelling, dry skin changes, large body habitus SIDE PERFORMED: Limited bilateral LE due to patient's tolerance to probe pressure to groin and upper thigh, especially at popliteal fossa, and no tolerance for compression maneuvers TECHNIQUE: The lower extremity deep venous system is examined utilizing real time linear array sonog venkatesh with graded compression, doppler sonography and color-flow sonography. Patient would not permi t probe survey of veins at either groin. VESSELS IMAGED: Femoral Vein Popliteal Vein Distal PTV pair Right Leg: Color and Doppler flow patency established at Femoral Vein and at limited Popliteal Vein survey. Compression achieved distal PTV Left Leg: Color and Doppler flow patency established at Femoral Vein and at limited Popliteal Vein s urvey. Compression achieved distal PTV IMPRESSION: Limited evaluation of the bilateral lower extremity veins. There is patency of the bilateral femoral veins, popliteal veins, and posterior tibial veins.
[2020-05-25] MEDS ORDERED: HYDROmorphone 1 MG/ML 1 ML SYRINGE IVP STA (17:03)
[2020-05-25] MEDS: MORPHINE SULFATE 4 MG/ML SYRINGE IVP PRN (17:18)
[2020-05-25 17:20] LABS: Glucose,Whole Blood 120 mg/dL (75-99)
[2020-05-25] MEDS: SODIUM HYPOCHLORITE 0.25% 480 ML BOT MISCELLANE SCH (17:56)
[2020-05-25 18:45] LABS: Reticulocyte % 3.2 % (0.5-2.0)
[2020-05-25 20:53] LABS: % Iron Saturation 5.67 (15.00-50.00)
[2020-05-25 20:58] LABS: Ferritin 108.1 ng/mL (22.0-322.0); Folate, Serum 6.6 ng/mL
[2020-05-25] MEDS: MELATONIN 5 MG TABLET PO SCH (21:28)
[2020-05-25 21:33] LABS: Glucose,Whole Blood 108 mg/dL (75-99)
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
[2020-05-25] MEDS: TOPIRAMATE 100 MG TAB PO SCH (22:39)
[2020-05-25] MEDS: FAMOTIDINE 20 MG/2 ML VIAL IV SCH (23:10)
[2020-05-25] MEDS ORDERED: DOXYCYCLINE 100 MG CAP PO ONE (23:30)
[2020-05-26] MEDS: HEPARIN SOD,PORK IN 0.45% NACL 25,000 UNIT in 0.45% NACL 1 250ML.BAG IV SCH (02:37)
[2020-05-26] MEDS: APIXABAN 5 MG TAB PO SCH ×3 (02:40→21:12)
[2020-05-26] MEDS: MORPHINE SULFATE 4 MG/ML SYRINGE IVP PRN ×4 (02:43→19:17)
[2020-05-26] MEDS: PANTOPRAZOLE 40 MG TABLET PO SCH (05:49)
[2020-05-26] MEDS: SODIUM CHLORIDE 0.9% 1,000 ML IV SCH ×3 (05:49→17:39)
[2020-05-26] MEDS: HYDROcodone/APAP 10-325MG 1 EACH TAB PO PRN ×3 (05:49→21:11)
[2020-05-26 07:16] LABS: Anisocytosis Slight; Basophils # (A) 0.1 k/uL (0-0.2); Basophils % (A) 1 %; Eosinophils # (A) 0.5 k/uL (0-0.7); Eosinophils % (A) 4 %; HCT 28.5 % (39.0-53.0); Hypochromasia Slight; Lymphocytes # (A) 1.9 k/uL (1.0-4.8); Lymphocytes % (A) 15 %; MCH 30.1 pg (25.0-35.0); MCHC 31.5 g/dL (31.0-37.0); MCV 95.4 fL (80.0-100.0); Mean Platelet Volume 7.1; Monocytes % (A) 8 %; Neutrophils # (A) 8.8 k/uL (1.3-7.7); Neutrophils % (A) 71 %; Platelet Count 498 k/uL (150-450); Poikilocytosis Slight; RBC 2.99 m/uL (4.30-5.90); RDW 16.6 % (11.5-15.5); WBC 12.5 k/uL (3.8-10.6)
[2020-05-26 07:52] LABS: Glucose,Whole Blood 99 mg/dL (75-99)
[2020-05-26 08:48] LABS: ALT 16 U/L (4-49); AST 24 U/L (17-59); African American GFR (CKD) >90 (>60 ml/min/1.73 sqM); Albumin 2.5 g/dL (3.5-5.0); Albumin/Globulin Ratio 0.7; Alkaline Phosphatase 103 U/L (38-126); Anion Gap 5 mmol/L; Blood Urea Nitrogen 10 mg/dL (9-20); Calcium 8.1 mg/dL (8.4-10.2); Carbon Dioxide 25 mmol/L (22-30); Chloride 107 mmol/L (98-107); Globulin 3.7 g/dL; Glucose 101 mg/dL (74-99); Non-African American GFR(CKD) >90 (>60 ml/min/1.73 sqM); Potassium 3.2 mmol/L (3.5-5.1); Sodium 137 mmol/L (137-145); Total Bilirubin 0.4 mg/dL (0.2-1.3); Total Protein 6.2 g/dL (6.3-8.2)
[2020-05-26] MEDS: FAMOTIDINE 20 MG/2 ML VIAL IV SCH (08:58)
[2020-05-26] MEDS: bisacodyL 5 MG TABLET.DR PO SCH (08:58)
[2020-05-26] MEDS: ASCORBIC ACID 500 MG TAB PO SCH (08:58)
[2020-05-26] MEDS: ASPIRIN 81 MG PO SCH (08:58)
[2020-05-26] MEDS: carvediloL 3.125 MG TAB PO SCH ×2 (08:58→17:38)
[2020-05-26] MEDS: BUMETANIDE 1 MG TAB PO SCH (08:58)
[2020-05-26] MEDS: MULTIVITAMINS, THERA 1 EACH TAB PO SCH (08:58)
[2020-05-26] MEDS: SPIRONOLACTONE 25 MG TAB PO SCH (08:58)
[2020-05-26] MEDS: SODIUM HYPOCHLORITE 0.25% 480 ML BOT MISCELLANE SCH (08:59)
[2020-05-26] MEDS: INSULIN ASPART (NovoLOG) 100 UNIT/ML VIAL SQ SCH ×4 (09:00→21:09)
[2020-05-26] MEDS: VANCOMYCIN 2,500 MG in SODIUM CHLORIDE 0.9% 500 ML 500 ML IVPB SCH ×2 (09:00→19:20)
[2020-05-26 12:07] LABS: Glucose,Whole Blood 99 mg/dL (75-99)
--- NOTE | 2020-05-26 13:33 | CONS ---
CONSULTATION DATE OF DICTATION: May 26, 2020. REASON FOR CONSULTATION: Symptomatic anemia. HISTORY OF PRESENT ILLNESS: The patient is a 59-year-old white male with longstanding history of diabetes mellitus, nonhealing diabetic foot ulcer and sacral decubitus who has been bedridden for the last one year duration, was transferred from [facility] because of issues with ongoing concerns with the decubitus ulcers. He was subsequently transferred over here for further evaluation. He was noted to have anemia with a hemoglobin of 9 and hence GI was consulted. The patient denies any abdominal pain. He reports no nausea, vomiting, intermittent abdominal pain. The patient states that he underwent a colonoscopy for management of bowel issues as patient had been bedridden at [facility] 2 months ago. Since he had a colostomy, in the left lower quadrant area, he has been having some diffuse intermittent abdominal pain. He reports no nausea, vomiting. No heartburn. No fever, chills, or night sweats. PAST MEDICAL HISTORY: Significant for asthma, coronary artery disease, hypertension, hyperlipidemia, congestive heart failure, chronic decubitus ulcerations in the sacrum as well as in the right foot. PAST SURGICAL HISTORY: Diverting colostomy performed two months ago at [facility], cardiac catheterization with stent placement, tonsillectomy. MEDICATIONS: Medications at home include Tylenol, aspirin, milk of magnesia, Aldactone, Dulcolax, Coreg, vitamin C, Bumex, Eucerin, melatonin, multivitamin, Topamax, Protonix, Lovenox, [place], insulin, lispro. ALLERGIES: None. SOCIAL HISTORY: Former smoker. No alcohol use. FAMILY HISTORY: Unremarkable. REVIEW OF SYSTEMS: CARDIOPULMONARY: No chest pain, no shortness of breath. No dysuria or hematuria. MUSCULOSKELETAL: Chronic back pain, lower extremity discomfort. NEUROLOGY unremarkable. PSYCHIATRIC unremarkable. ENT: Vision unremarkable. CONSTITUTIONAL: No fever, chills. No night sweats. HEMATOLOGY: Chronic anemia. ENT: Vision unremarkable. MUSCULOSKELETAL: Lower extremity weakness from chronic right lower extremity cellulitis and persistent foot ulcer. PHYSICAL EXAMINATION: He appears comfortable. No apparent distress. Vital signs stable. Blood pressure is 133/46, pulse rate 87, temperature 97.7. HEENT examination unremarkable. Conjunctivae pink. Sclerae anicteric. Oral cavity no lesions. NECK: No JVD or lymph node enlargement. CHEST was clear to auscultation. ABDOMEN: Obese. Colostomy in the left lower quadrant area. There was mild tenderness in the epigastric area in the left lower quadrant area. Rest of the abdomen was benign. EXTREMITIES: Chronic edema of the lower extremities with hyperpigmentation of the skin. Diabetic foot ulcer on the right foot and multiple sacral decubitus as per the nursing staff. NEUROLOGIC: Alert and oriented x3. LABS: WBC 13.1, hemoglobin 8.8, platelets normal, MCV is 95. Today hemoglobin is 9. PT/INR is within normal limits. BUN and creatinine are normal. Serum iron 11, TIBC 194, iron saturation 5.67 and ferritin is 108. IMPRESSION: 1. Normocytic anemia and iron indices not consistent with iron deficiency anemia. Most likely dealing with anemia of chronic disease. Hematology/ Oncology was consulted. 2. Chronic sacral decubitus and chronic right foot ulcer for which he underwent several debridements. 3. Cellulitis, right foot, on broad-spectrum antibiotics. 4. Diversion colostomy done 2 months ago at [facility]. RECOMMENDATIONS: 1. Continue with symptomatic and supportive care. 2. Monitor CBC daily. 3. Transfuse if the hemoglobin is less than 7. 4. Since there is no evidence of iron deficiency anemia, no indication for any endoscopy intervention at the present time. We will follow with you closely. Thank you for this consultation. MMODL / IJN: [id number] /
--- NOTE | 2020-05-26 14:04 | P.PN ---
Subjective Progress Note Date: 05/26/20 CHIEF COMPLAINT: Decubitus ulcer HISTORY OF PRESENT ILLNESS: The patient is a 59-year-old male admitted with decubiti ulcer present on admission. He presents for multiple medical Sanchez. morbidities including chronic kidney disease, hypertensive heart disease with ischemic cardiomyopathy, diabetes type 2. He reports being in too much pain to move as he is morbidly obese. ROS: No reports of nausea and vomiting. No bowel movements. No fevers or chills. No new chest pain. No productive sputum PHYSICAL EXAM: VITAL SIGNS: Reviewed CONSTITUTIONAL: Well developed and in no acute distress. EYES: Conjuctivae without sclera icterus. Extraocular movements grossly intact. HEAD, EARS, NOSE, THROAT: Moist buccal mucosa. Head is atraumatic, normocephalic. Hears conversational speech. No nasal drainage. NECK: Supple. No thyroidomegaly. RESPIRATORY: Non-labored respirations and equal bilateral excursions. CARDIOVASCULAR: Palpable 2+ radial pulses. ABDOMEN: No peritonitis. MUSCULOSKELETAL: Right heel with dressing. Bilateral venous stasis disease. SKIN: Good skin turgor. Well perfused. Decubitus ulcer NEUROLOGIC: Cranial nerves II through XII grossly intact. No focal or lateral izing signs. PSYCH: Appropriate affect. Alert and oriented to person, place and time. CLINICAL LABS: White blood cell count improved from 13.1-12.5. ASSESSMENT: 1. Decubitus ulcer 2. Morbid obesity due to excess calories, BMI 57.1 PLAN: 1. Rotate every 1-2 hours for prevention of worsening decubiti ulcer 2. Will need wound care management at wound care center 3. Will need specialty bed. Patient reports a trapeze type bed is helpful. Objective - Vital Signs Vital signs: Vital Signs Temp 97.7 F 05/25/20 20:04 Pulse 87 05/25/20 20:04 Resp 19 05/25/20 20:04 BP 116/66 05/25/20 20:04 Pulse Ox 95 05/25/20 20:04 Intake & Output 05/25/20 05/26/20 05/26/20 18:59 06:59 18:59 Intake Total 240 1150 Output Total 100 500 Balance 140 650 Weight 180.53 kg Intake: Intake, IV Titration 670 Amount Sodium Chloride 0.9% 1, 70 000 ml @ 20 mls/hr IV . Q24H [facility] Rx#:[id number] Sodium Chloride 0.9% 1, 600 000 ml @ 75 mls/hr IV . [id number] [facility] Rx#:[id number] Oral 240 480 Output: Urine 500 Uretheral (Rodriguez) 500 Stool 100 Other: Voiding Method Indwelling Catheter Indwelling Catheter Indwelling Catheter - Labs CBC & Chem 7: 05/26/20 06:51 05/26/20 06:51 Labs: Abnormal Lab Results - Last 24 Hours (Table) 05/25/20 05/25/20 05/25/20 Range/Units 12:32 12:32 12:32 WBC (3.8-10.6) k/uL RBC (4.30-5.90) m/uL Hgb (13.0-17.5) gm/dL Hct (39.0-53.0) % RDW (11.5-15.5) % Plt Count (150-450) k/uL Neutrophils # (1.3-7.7) k/uL ESR 115 H (0-15) mm/hr Retic Count (0.5-2.0) % APTT (22.0-30.0) sec Sodium 135 L (137-145) mmol/L Potassium 3.3 L (3.5-5.1) mmol/L Glucose 126 H (74-99) mg/dL POC Glucose (mg/dL) (75-99) mg/dL Calcium 8.0 L (8.4-10.2) mg/dL Iron 11 L (65-175) ug/dL TIBC 194 L (228-460) ug/dL % Saturation 5.67 L (15.00-50.00) C-Reactive Protein 183.7 H (<10.0) mg/L Total Protein (6.3-8.2) g/dL Albumin (3.5-5.0) g/dL 05/25/20 05/25/20 05/25/20 Range/Units 17:15 18:08 18:08 WBC (3.8-10.6) k/uL RBC (4.30-5.90) m/uL Hgb (13.0-17.5) gm/dL Hct (39.0-53.0) % RDW (11.5-15.5) % Plt Count (150-450) k/uL Neutrophils # (1.3-7.7) k/uL ESR (0-15) mm/hr Retic Count 3.2 H (0.5-2.0) % APTT 40.5 H (22.0-30.0) sec Sodium (137-145) mmol/L Potassium (3.5-5.1) mmol/L Glucose (74-99) mg/dL POC Glucose (mg/dL) 120 H (75-99) mg/dL Calcium (8.4-10.2) mg/dL Iron (65-175) ug/dL TIBC (228-460) ug/dL % Saturation (15.00-50.00) C-Reactive Protein (<10.0) mg/L Total Protein (6.3-8.2) g/dL Albumin (3.5-5.0) g/dL 05/25/20 05/26/20 05/26/20 Range/Units 21:30 06:51 06:51 WBC 12.5 H (3.8-10.6) k/uL RBC 2.99 L (4.30-5.90) m/uL Hgb 9.0 L (13.0-17.5) gm/dL Hct 28.5 L (39.0-53.0) % RDW 16.6 H (11.5-15.5) % Plt Count 498 H (150-450) k/uL Neutrophils # 8.8 H (1.3-7.7) k/uL ESR (0-15) mm/hr Retic Count (0.5-2.0) % APTT (22.0-30.0) sec Sodium (137-145) mmol/L Potassium 3.2 L (3.5-5.1) mmol/L Glucose 101 H (74-99) mg/dL POC Glucose (mg/dL) 108 H (75-99) mg/dL Calcium 8.1 L (8.4-10.2) mg/dL Iron (65-175) ug/dL TIBC (228-460) ug/dL % Saturation (15.00-50.00) C-Reactive Protein (<10.0) mg/L Total Protein 6.2 L (6.3-8.2) g/dL Albumin 2.5 L (3.5-5.0) g/dL Assessment and Plan (1) Venous stasis dermatitis of both lower extremities Current Visit: Yes Status: Acute Code(s): I87.2 - VENOUS INSUFFICIENCY (CHRONIC) (PERIPHERAL) SNOMED Code(s): 98061605 (2) Morbid obesity due to excess calories Current Visit: Yes Status: Acute Code(s): E66.01 - MORBID (SEVERE) OBESITY DUE TO EXCESS CALORIES SNOMED Code(s): 137765476 (3) Adult BMI 50.0-59.9 kg/sq m Current Visit: Yes Status: Acute Code(s): Z68.43 - BODY MASS INDEX [BMI] 50.0-59.9, ADULT SNOMED Code(s): 085968318 (4) Decubitus ulcer Current Visit: Yes Status: Acute Code(s): L89.90 - PRESSURE ULCER OF UNSPECIFIED SITE, UNSPECIFIED STAGE SNOMED Code(s): 083723550 (5) High risk for readmission Current Visit: Yes Status: Acute Code(s): Z91.89 - OTH PERSONAL RISK FACTORS, NOT ELSEWHERE CLASSIFIED SNOMED Code(s): 406847534
[2020-05-26 17:18] LABS: Glucose,Whole Blood 139 mg/dL (75-99)
[2020-05-26 20:20] LABS: Glucose,Whole Blood 115 mg/dL (75-99)
[2020-05-26] MEDS ORDERED: CEFEPIME 2 GM in SODIUM CHLORIDE 0.9% 100 ML IVPB SCH (21:00)
[2020-05-26] MEDS: MELATONIN 5 MG TABLET PO SCH (21:12)
[2020-05-26] MEDS: TOPIRAMATE 100 MG TAB PO SCH (21:12)
--- NOTE | 2020-05-27 00:50 | P.PN ---
Subjective Progress Note Date: 05/26/20 Mr. Lion is a 59-year-old male with a past medical history of morbid obesity, stage IV decubitus ulcers with recent divergent colostomy, coronary artery disease status post stenting, chronic heart failure, COPD, diabetes mellitus, hypertension, BPH, sleep apnea, chronic anemia sent in from [facility] yesterday for possible infected sacral decubitus ulcers. Patient was recently discharged from the hospital for the same. Patient also had recent debridement of his wound at [facility]. At [facility] patient had leukocytosis and he also had ultrasound of the bilateral lower extremity showing nonocclusive DVT. The patient was started on Zosyn and IV vancomycin and sent in here for further evaluation. On 05/26/2020 -patient is lying in bed states that he has pain in his lower back due to ulcers. He states that he has pain all over his body as well. Overnight as per nursing staff report patient refused to get blood work done to check for APTT as he was started on heparin for nonocclusive DVT as a recommended by hematology. So the patient was started on Eliquis instead overnight. Today patient states that he does not like to have blood work done frequently and refusing his medications.Patient denies having any chest pain or palpitations. No cough or difficulty in breathing. No abdominal pain. He has a colostomy and in place and Rodriguez's catheter in place. On reviewing the patient's vitals temperature of 97.6 heart rate of 90 respiratory of 18 blood pressure 117 was patient's labs have been reviewed white count of 12.5, hemoglobin 9, platelets of 498. Sodium 137, potassium 3.2, chloride 107, bicarb 25, BUN 10, creatinine 0.77. Patient keeps requesting pain medications. Active Medications Acetaminophen (Acetaminophen Tab 325 Mg Tab) 650 mg PO Q6H PRN PRN Reason: Fever and/ or Pain Last Admin: 05/25/20 01:37 Dose: 650 mg Documented by: Hydrocodone Bitart/Acetaminophen (Hydrocodone/Apap 10-325mg 1 Each Tab) 1 each PO Q6H PRN PRN Reason: Pain Last Admin: 05/26/20 21:11 Dose: 1 each Documented by: Apixaban (Apixaban 5 Mg Tab) 10 mg PO BID MICHAEL Stop: 11/07/20 02:01 Last Admin: 05/26/20 21:12 Dose: 10 mg Documented by: Ascorbic Acid (Ascorbic Acid 500 Mg Tab) 500 mg PO DAILY@0700 [facility] Last Admin: 05/26/20 08:58 Dose: 500 mg Documented by: Aspirin (Aspirin 81 Mg) 81 mg PO DAILY@0700 [facility] Last Admin: 05/26/20 08:58 Dose: 81 mg Documented by: Benzocaine/Menthol (Benzocaine/Menthol Lozeng 1 Each Lozenge) 1 each MUCOUS MEM Q2H PRN PRN Reason: SORE THROAT Bisacodyl (Bisacodyl 5 Mg Tablet.Dr) 20 mg PO DAILY@0700 [facility] Last Admin: 05/26/20 08:58 Dose: 20 mg Documented by: Bumetanide (Bumetanide 1 Mg Tab) 1 mg PO DAILY@0700 [facility] Last Admin: 05/26/20 08:58 Dose: 1 mg Documented by: Carvedilol (Carvedilol 3.125 Mg Tab) 3.125 mg PO BID@0700,1700 [facility] Last Admin: 05/26/20 17:38 Dose: 3.125 mg Documented by: Sodium Chloride (Saline 0.9%) 1,000 mls @ 20 mls/hr IV .Q24H [facility] Last Admin: 05/26/20 17:39 Dose: Not Given Documented by: Vancomycin HCl 2,500 mg/ (Sodium Chloride) 500 mls @ 167 mls/hr IVPB Q12H [facility] Last Admin: 05/26/20 19:20 Dose: 167 mls/hr Documented by: Sodium Chloride (Saline 0.9%) 1,000 mls @ 75 mls/hr IV .[id number] [facility] Last Admin: 05/26/20 08:59 Dose: 75 mls/hr Documented by: Cefepime HCl 2 gm/ Sodium (Chloride) 100 mls @ 25 mls/hr IVPB Q12HR [facility] Last Admin: 05/26/20 21:12 Dose: 25 mls/hr Documented by: Insulin Aspart (Insulin Aspart (Novolog) 100 Unit/Ml Vial) 0 unit SQ ACHS [facility]; Protocol Last Admin: 05/26/20 21:09 Dose: Not Given Documented by: Magnesium Hydroxide (Magnesium Hydroxide 2,400 Mg/10 Ml Cup) 2,400 mg PO DAILY PRN PRN Reason: Constipation Melatonin (Melatonin 5 Mg Tablet) 5 mg PO HS@2100 [facility] Last Admin: 05/26/20 21:12 Dose: 5 mg Documented by: Morphine Sulfate (Morphine Sulfate 4 Mg/Ml Syringe) 4 mg IVP Q4HR PRN PRN Reason: Pain Last Admin: 05/26/20 19:17 Dose: 4 mg Documented by: Multivitamins (Multivitamins, Thera 1 Each Tab) 1 each PO DAILY@0700 [facility] Last Admin: 05/26/20 08:58 Dose: 1 each Documented by: Naloxone HCl (Naloxone 0.4 Mg/Ml 1 Ml Vial) 0.2 mg IV Q2M PRN PRN Reason: Opioid Reversal Pantoprazole Sodium (Pantoprazole 40 Mg Tablet) 40 mg PO DAILY@0600 [facility] Last Admin: 05/26/20 05:49 Dose: 40 mg Documented by: Sodium Hypochlorite (Sodium Hypochlorite 0.25% 480 Ml Bot) 480 ml MISCELLANE DAILY [facility] Last Admin: 05/26/20 08:59 Dose: 480 ml Documented by: Spironolactone (Spironolactone 25 Mg Tab) 25 mg PO DAILY@0700 [facility] Last Admin: 05/26/20 08:58 Dose: 25 mg Documented by: Topiramate (Topiramate 100 Mg Tab) 100 mg PO HS@2100 [facility] Last Admin: 05/26/20 21:12 Dose: 100 mg Documented by: Objective - Vital Signs Vital signs: Vital Signs Temp 97.7 F 05/25/20 20:04 Pulse 87 05/25/20 20:04 Resp 19 05/25/20 20:04 BP 116/66 05/25/20 20:04 Pulse Ox 95 05/25/20 20:04 Intake & Output 05/25/20 05/26/20 05/26/20 18:59 06:59 18:59 Intake Total 240 1150 Output Total 100 500 Balance 140 650 Weight 180.53 kg Intake: Intake, IV Titration 670 Amount Sodium Chloride 0.9% 1, 70 000 ml @ 20 mls/hr IV . Q24H [facility] Rx#:[id number] Sodium Chloride 0.9% 1, 600 000 ml @ 75 mls/hr IV . [id number] [facility] Rx#:[id number] Oral 240 480 Output: Urine 500 Uretheral (Rodriguez) 500 Stool 100 Other: Voiding Method Indwelling Catheter Indwelling Catheter Indwelling Catheter - Exam -GENERAL: The patient is alert and oriented x3, in mild acute distress due to pain . Morbidly obese HEENT: Pupils are round and equally reacting to light. EOMI. No scleral icterus. No conjunctival pallor. Normocephalic, atraumatic. No pharyngeal erythema. No thyromegaly. CARDIOVASCULAR: Distant S1 and S2 present. PULMONARY: Distant BS heard ABDOMEN: Soft, nontender, nondistended, normoactive bowel sounds. No palpable organomegaly. -MUSCULOSKELETAL: Patient refused to turn over his back to look for ulcers -EXTREMITIES: No cyanosis, clubbing. Bilateral leg swelling, right more than left, Chronic Lympadematous changes in both lower extremities. Extremely tender to touch. NEUROLOGICAL: Gross neurological examination did not reveal any focal deficits. He could move all 4 extremities. SKIN: No rashes. No petechiae - Labs CBC & Chem 7: 05/26/20 06:51 05/26/20 06:51 Labs: Abnormal Lab Results - Last 24 Hours (Table) 05/25/20 05/25/20 05/25/20 Range/Units 12:32 12:32 12:32 WBC 13.1 H (3.8-10.6) k/uL RBC 3.00 L (4.30-5.90) m/uL Hgb 8.8 L (13.0-17.5) gm/dL Hct 28.7 L (39.0-53.0) % MCHC 30.6 L (31.0-37.0) g/dL RDW 16.8 H (11.5-15.5) % Plt Count 478 H (150-450) k/uL Neutrophils # 9.3 H (1.3-7.7) k/uL Monocytes # 1.1 H (0-1.0) k/uL ESR 115 H (0-15) mm/hr Retic Count (0.5-2.0) % APTT (22.0-30.0) sec Sodium 135 L (137-145) mmol/L Potassium 3.3 L (3.5-5.1) mmol/L Glucose 126 H (74-99) mg/dL POC Glucose (mg/dL) (75-99) mg/dL Calcium 8.0 L (8.4-10.2) mg/dL Iron 11 L (65-175) ug/dL TIBC 194 L (228-460) ug/dL % Saturation 5.67 L (15.00-50.00) C-Reactive Protein 183.7 H (<10.0) mg/L Total Protein (6.3-8.2) g/dL Albumin (3.5-5.0) g/dL 05/25/20 05/25/20 05/25/20 Range/Units 17:15 18:08 18:08 WBC (3.8-10.6) k/uL RBC (4.30-5.90) m/uL Hgb (13.0-17.5) gm/dL Hct (39.0-53.0) % MCHC (31.0-37.0) g/dL RDW (11.5-15.5) % Plt Count (150-450) k/uL Neutrophils # (1.3-7.7) k/uL Monocytes # (0-1.0) k/uL ESR (0-15) mm/hr Retic Count 3.2 H (0.5-2.0) % APTT 40.5 H (22.0-30.0) sec Sodium (137-145) mmol/L Potassium (3.5-5.1) mmol/L Glucose (74-99) mg/dL POC Glucose (mg/dL) 120 H (75-99) mg/dL Calcium (8.4-10.2) mg/dL Iron (65-175) ug/dL TIBC (228-460) ug/dL % Saturation (15.00-50.00) C-Reactive Protein (<10.0) mg/L Total Protein (6.3-8.2) g/dL Albumin (3.5-5.0) g/dL 05/25/20 05/26/20 05/26/20 Range/Units 21:30 06:51 06:51 WBC 12.5 H (3.8-10.6) k/uL RBC 2.99 L (4.30-5.90) m/uL Hgb 9.0 L (13.0-17.5) gm/dL Hct 28.5 L (39.0-53.0) % MCHC (31.0-37.0) g/dL RDW 16.6 H (11.5-15.5) % Plt Count 498 H (150-450) k/uL Neutrophils # 8.8 H (1.3-7.7) k/uL Monocytes # (0-1.0) k/uL ESR (0-15) mm/hr Retic Count (0.5-2.0) % APTT (22.0-30.0) sec Sodium (137-145) mmol/L Potassium 3.2 L (3.5-5.1) mmol/L Glucose 101 H (74-99) mg/dL POC Glucose (mg/dL) 108 H (75-99) mg/dL Calcium 8.1 L (8.4-10.2) mg/dL Iron (65-175) ug/dL TIBC (228-460) ug/dL % Saturation (15.00-50.00) C-Reactive Protein (<10.0) mg/L Total Protein 6.2 L (6.3-8.2) g/dL Albumin 2.5 L (3.5-5.0) g/dL Assessment and Plan Assessment: ASSESSMENT Stage IV decubitus ulcers (per documents as he refused back exam ) with recent divergent colostomy Pain in the lower back secondary to his pressure ulcer above Bilateral lower extremity DVT, Non-adherence to therapy possible nonocclusive DVT of the lower extremity Hypertension Diabetes mellitus Benign prostatic hypertrophy Sleep apnea on CPAP/BiPAP Lymphedema Chronic kidney disease stage III Chronic anemia History of coronary artery disease status post stent placement. Morbid obesity with BMI of 57 PLAN: Patient has been started on vancomycin and cefepime has been added for gram-negative coverage. Surgical consult was obtained back no surgical intervention has been planned as it will not heal due to continued pressure so I recommended local wound care. Hematology has been consulted for the nonocclusive DVT and recommended heparin. As the patient refused to get his APTT checked he has been started on Eliquis. As suggested by hematology GI has been consulted. Continue with the rest of his current medication regimen. Overall prognosis is poor. Patient has been refusing lab draws and some of his medications.
[2020-05-27] MEDS: MORPHINE SULFATE 4 MG/ML SYRINGE IVP PRN ×5 (02:31→22:10)
[2020-05-27] MEDS: HYDROcodone/APAP 10-325MG 1 EACH TAB PO PRN ×4 (02:31→20:03)
[2020-05-27] MEDS: SODIUM CHLORIDE 0.9% 1,000 ML IV SCH ×3 (05:17→19:27)
[2020-05-27] MEDS: PANTOPRAZOLE 40 MG TABLET PO SCH (05:18)
[2020-05-27 07:15] LABS: Anisocytosis Slight; Basophils # (A) 0.1 k/uL (0-0.2); Basophils % (A) 1 %; Eosinophils # (A) 0.6 k/uL (0-0.7); Eosinophils % (A) 6 %; HCT 29.2 % (39.0-53.0); HGB 9.1 gm/dL (13.0-17.5); Hypochromasia Moderate; Lymphocytes # (A) 1.6 k/uL (1.0-4.8); Lymphocytes % (A) 16 %; MCH 29.8 pg (25.0-35.0); MCHC 31.1 g/dL (31.0-37.0); MCV 95.7 fL (80.0-100.0); Monocytes % (A) 10 %; Neutrophils # (A) 6.7 k/uL (1.3-7.7); Neutrophils % (A) 66 %; Platelet Count 525 k/uL (150-450); Poikilocytosis Slight; RBC 3.05 m/uL (4.30-5.90); RDW 16.6 % (11.5-15.5); WBC 10.1 k/uL (3.8-10.6)
[2020-05-27 07:40] LABS: Glucose,Whole Blood 94 mg/dL (75-99)
[2020-05-27] MEDS: VANCOMYCIN 2,500 MG in SODIUM CHLORIDE 0.9% 500 ML 500 ML IVPB SCH ×2 (08:00→19:27)
[2020-05-27] MEDS: ASCORBIC ACID 500 MG TAB PO SCH (08:02)
[2020-05-27] MEDS: bisacodyL 5 MG TABLET.DR PO SCH (08:02)
[2020-05-27] MEDS: MULTIVITAMINS, THERA 1 EACH TAB PO SCH (08:02)
[2020-05-27] MEDS: APIXABAN 5 MG TAB PO SCH ×2 (08:02→20:03)
[2020-05-27] MEDS: SPIRONOLACTONE 25 MG TAB PO SCH (08:03)
[2020-05-27] MEDS: BUMETANIDE 1 MG TAB PO SCH (08:03)
[2020-05-27] MEDS: ASPIRIN 81 MG PO SCH (08:03)
[2020-05-27] MEDS: INSULIN ASPART (NovoLOG) 100 UNIT/ML VIAL SQ SCH ×4 (08:09→21:11)
[2020-05-27] MEDS: carvediloL 3.125 MG TAB PO SCH ×2 (09:48→18:02)
--- NOTE | 2020-05-27 10:10 | PN ---
PROGRESS NOTE DATE OF SERVICE: 05/27/2020 Patient is a 59-year-old pleasant white male with history of morbid obesity, bedridden with multiple sacral decubitus and right foot nonhealing diabetic ulcer and diverting colostomy done 2 months ago. Admitted to the hospital with severe symptomatic anemia and cellulitis. He was seen on consultation yesterday. The patient today is doing well. No abdominal pain. No nausea or vomiting. No bleeding in the colostomy bag. PHYSICAL EXAMINATION: Appears comfortable. VITAL SIGNS: Stable. Blood pressure 94/54, pulse rate 95, temperature 98. HEENT: Examination unremarkable. Conjunctivae are pink. Sclerae anicteric. Oral cavity no lesions. NECK: No JVD or lymph node enlargement. CHEST: Clear auscultation. HEART: Regular rate and rhythm. ABDOMEN: Soft. Bowel sounds are positive. Colostomy bag in place. EXTREMITIES: No pedal edema. Cellulitis of the right foot. LABS: From today WBC 10.1, hemoglobin 9.1, platelets normal. The rest of the labs are within normal limits. IMPRESSION: 1. Symptomatic normocytic normochromic anemia with a hemoglobin of 9.1. Iron indices showed no evidence of iron deficiency anemia, most likely dealing with anemia of chronic disease. 2. Longstanding history of diabetes mellitus. 3. Nonhealing diabetic right foot ulcer. 4. Large sacral decubs. 5. History of diverting colostomy. RECOMMENDATION: 1. No plans for any endoscopic intervention at the present time, as we are dealing with anemia of chronic disease. 2. Monitor CBC on a daily basis. 3. Will sign off at this time. Please call us if needed. Thank you for this consultation. MMODL / IJN: [id number] /
[2020-05-27 10:22] LABS: Glucose,Whole Blood 123 mg/dL (75-99)
[2020-05-27 10:50] LABS: African American GFR (CKD) 119.7 (60.0-200.0); Anion Gap 10.8 mmol/L (4.00-12.00); BUN/Creat Ratio 12.86 Ratio (12.00-20.00); Calcium 7.8 mg/dL (8.7-10.3); Carbon Dioxide 21.2 mmol/L (21.6-31.8); Non-African American GFR(CKD) 103.3 (60.0-200.0); Potassium 3.2 mmol/L (3.5-5.5)
[2020-05-27 11:20] LABS: Glucose,Whole Blood 108 mg/dL (75-99)
[2020-05-27] MEDS: SODIUM HYPOCHLORITE 0.25% 480 ML BOT MISCELLANE SCH (12:10)
--- NOTE | 2020-05-27 12:16 | P.PN ---
Subjective Progress Note Date: 05/27/20 Principal diagnosis: Infected sacral decubitus ulcer Mr. Lion is a 59-year-old male with a past medical history of morbid obesity, stage IV decubitus ulcers with recent divergent colostomy, coronary artery disease status post stenting, chronic heart failure, COPD, diabetes mellitus, hypertension, BPH, sleep apnea, chronic anemia sent in from [facility] yesterday for possible infected sacral decubitus ulcers. Patient was recently discharged from the hospital for the same. Patient also had recent debridement of his wound at [facility]. At [facility] patient had leukocytosis and he also had ultrasound of the bilateral lower extremity showing nonocclusive DVT. The patient was started on Zosyn and IV vancomycin and sent in here for further evaluation. On 05/26/2020 -patient is lying in bed states that he has pain in his lower back due to ulcers. He states that he has pain all over his body as well. Overnight as per nursing staff report patient refused to get blood work done to check for APTT as he was started on heparin for nonocclusive DVT as a recommended by hematology. So the patient was started on Eliquis instead overnight. Today patient states that he does not like to have blood work done frequently and refusing his medications.Patient denies having any chest pain or palpitations. No cough or difficulty in breathing. No abdominal pain. He has a colostomy and in place and Rodriguez's catheter in place. On reviewing the patient's vitals temperature of 97.6 heart rate of 90 respiratory of 18 blood pressure 117 was patient's labs have been reviewed white count of 12.5, hemoglobin 9, platelets of 498. Sodium 137, potassium 3.2, chloride 107, bicarb 25, BUN 10, creatinine 0.77. Patient keeps requesting pain medications. On 05/27/2020 - patient is lying in bed appears to be in no acute distress. Patient states that he has pain in his lower back due to ulcers and also complains of pain all over his body. Patient has been getting antibiotics in the form of vancomycin and cefepime for possible infected sacral decubitus ulcer. Patient denies having any chest pain or palpitations. No cough or difficulty in breathing. No abdominal pain nausea vomiting or diarrhea. Patient has a Rodriguez's catheter and colostomy in place. On reviewing the patient's vitals he has been afebrile for the past 24 hours. Heart rate between 80s to 90s, respiratory rate around 20, blood pressure 117/63 and saturating at 97% on room air. On reviewing his labs, There is a down trending white count from 12.5-10.1, hemoglobin stable at 9.1 and platelets are 25. Sodium 140, potassium 3.2, chloride 100, bicarbonate 21, BUN 9, creatinine of 0.7. Active Medications Acetaminophen (Acetaminophen Tab 325 Mg Tab) 650 mg PO Q6H PRN PRN Reason: Fever and/ or Pain Last Admin: 05/25/20 01:37 Dose: 650 mg Documented by: Hydrocodone Bitart/Acetaminophen (Hydrocodone/Apap 10-325mg 1 Each Tab) 1 each PO Q6H PRN PRN Reason: Pain Last Admin: 05/27/20 08:09 Dose: 1 each Documented by: Apixaban (Apixaban 5 Mg Tab) 10 mg PO BID [facility] Stop: 06/02/20 02:01 Last Admin: 05/27/20 08:02 Dose: 10 mg Documented by: Ascorbic Acid (Ascorbic Acid 500 Mg Tab) 500 mg PO DAILY@0700 [facility] Last Admin: 05/27/20 08:02 Dose: 500 mg Documented by: Aspirin (Aspirin 81 Mg) 81 mg PO DAILY@0700 [facility] Last Admin: 05/27/20 08:03 Dose: 81 mg Documented by: Benzocaine/Menthol (Benzocaine/Menthol Lozeng 1 Each Lozenge) 1 each MUCOUS MEM Q2H PRN PRN Reason: SORE THROAT Bisacodyl (Bisacodyl 5 Mg Tablet.) 20 mg PO DAILY@0700 [facility] Last Admin: 05/27/20 08:02 Dose: 20 mg Documented by: Bumetanide (Bumetanide 1 Mg Tab) 1 mg PO DAILY@0700 [facility] Last Admin: 05/27/20 08:03 Dose: 1 mg Documented by: Carvedilol (Carvedilol 3.125 Mg Tab) 3.125 mg PO BID@0700,1700 [facility] Last Admin: 05/27/20 09:48 Dose: Not Given Documented by: Sodium Chloride (Saline 0.9%) 1,000 mls @ 20 mls/hr IV .Q24H [facility] Last Admin: 05/26/20 17:39 Dose: Not Given Documented by: Vancomycin HCl 2,500 mg/ (Sodium Chloride) 500 mls @ 167 mls/hr IVPB Q12H [facility] Last Admin: 05/27/20 08:00 Dose: 167 mls/hr Documented by: Sodium Chloride (Saline 0.9%) 1,000 mls @ 75 mls/hr IV .[id number] [facility] Last Admin: 05/27/20 05:17 Dose: 75 mls/hr Documented by: Cefepime HCl 2 gm/ Sodium (Chloride) 100 mls @ 25 mls/hr IVPB Q12HR [facility] Last Admin: 05/26/20 21:12 Dose: 25 mls/hr Documented by: Insulin Aspart (Insulin Aspart (Novolog) 100 Unit/Ml Vial) 0 unit SQ ACHS [facility]; Protocol Last Admin: 05/27/20 11:24 Dose: Not Given Documented by: Magnesium Hydroxide (Magnesium Hydroxide 2,400 Mg/10 Ml Cup) 2,400 mg PO DAILY PRN PRN Reason: Constipation Melatonin (Melatonin 5 Mg Tablet) 5 mg PO HS@2100 [facility] Last Admin: 05/26/20 21:12 Dose: 5 mg Documented by: Morphine Sulfate (Morphine Sulfate 4 Mg/Ml Syringe) 4 mg IVP Q4HR PRN PRN Reason: Pain Last Admin: 05/27/20 11:43 Dose: 4 mg Documented by: Multivitamins (Multivitamins, Thera 1 Each Tab) 1 each PO DAILY@0700 [facility] Last Admin: 05/27/20 08:02 Dose: 1 each Documented by: Naloxone HCl (Naloxone 0.4 Mg/Ml 1 Ml Vial) 0.2 mg IV Q2M PRN PRN Reason: Opioid Reversal Pantoprazole Sodium (Pantoprazole 40 Mg Tablet) 40 mg PO DAILY@0600 [facility] Last Admin: 05/27/20 05:18 Dose: 40 mg Documented by: Sodium Hypochlorite (Sodium Hypochlorite 0.25% 480 Ml Bot) 480 ml MISCELLANE DAILY [facility] Last Admin: 05/27/20 12:10 Dose: 480 ml Documented by: Spironolactone (Spironolactone 25 Mg Tab) 25 mg PO DAILY@0700 [facility] Last Admin: 05/27/20 08:03 Dose: 25 mg Documented by: Topiramate (Topiramate 100 Mg Tab) 100 mg PO HS@2100 [facility] Last Admin: 05/26/20 21:12 Dose: 100 mg Documented by: Objective - Vital Signs Vital signs: Vital Signs Temp 98.4 F 05/27/20 11:13 Pulse 93 05/27/20 11:13 Resp 20 05/27/20 11:13 BP 117/63 05/27/20 11:13 Pulse Ox 97 05/27/20 11:13 Intake & Output 05/26/20 05/27/20 05/27/20 19:59 06:59 18:59 Intake Total Output Total Balance Intake: Intake, IV Titration Amount Cefepime 2 gm In Sodium Chloride 0.9% 100 ml @ 25 mls/hr IVPB Q12HR [facility] Rx #:[id number] Sodium Chloride 0.9% 1, 000 ml @ 75 mls/hr IV . [id number] [facility] Rx#:[id number] Vancomycin 2,500 mg In Sodium Chloride 0.9% 500 ml 500 ml @ 167 mls/hr IVPB Q12H [facility] Rx#: [id number] Oral Output: Urine Uretheral (Rodriguez) Other: Voiding Method Indwelling Catheter # Voids - Exam -GENERAL: The patient is alert and oriented x3, in mild acute distress due to pain . Morbidly obese HEENT: Pupils are round and equally reacting to light. EOMI. No scleral icterus. No conjunctival pallor. Normocephalic, atraumatic. No pharyngeal erythema. No thyromegaly CARDIOVASCULAR: Distant S1 and S2 present. PULMONARY: Distant BS heard ABDOMEN: Soft, nontender, nondistended, normoactive bowel sounds. No palpable organomegaly. -MUSCULOSKELETAL: Large ulcer in the scarum, with foul smelling discharge and bleeding to touch. There is surrounding sloughing. -EXTREMITIES: No cyanosis, clubbing. Bilateral leg swelling, right more than left, Chronic Lympadematous changes in both lower extremities. Extremely tender to touch. NEUROLOGICAL: Gross neurological examination did not reveal any focal deficits. He could move all 4 extremities. SKIN: No rashes. No petechiae - Labs CBC & Chem 7: 05/27/20 06:42 05/27/20 06:42 Labs: Abnormal Lab Results - Last 24 Hours (Table) 05/26/20 05/26/20 05/27/20 Range/Units 17:06 20:18 06:42 RBC (4.30-5.90) m/uL Hgb (13.0-17.5) gm/dL Hct (39.0-53.0) % RDW (11.5-15.5) % Plt Count (150-450) k/uL Potassium 3.2 L (3.5-5.5) mmol/L Carbon Dioxide 21.2 L (21.6-31.8) mmol/L POC Glucose (mg/dL) 139 H 115 H (75-99) mg/dL Calcium 7.8 L (8.7-10.3) mg/dL 05/27/20 05/27/20 05/27/20 Range/Units 06:42 10:20 11:15 RBC 3.05 L (4.30-5.90) m/uL Hgb 9.1 L (13.0-17.5) gm/dL Hct 29.2 L (39.0-53.0) % RDW 16.6 H (11.5-15.5) % Plt Count 525 H (150-450) k/uL Potassium (3.5-5.5) mmol/L Carbon Dioxide (21.6-31.8) mmol/L POC Glucose (mg/dL) 123 H 108 H (75-99) mg/dL Calcium (8.7-10.3) mg/dL Assessment and Plan Assessment: ASSESSMENT Infected and foul smeeling Stage IV decubitus ulcers with recent divergent colostomy Pain in the lower back secondary to his pressure ulcer above Bilateral lower extremity DVT, Non-adherence to therapy possible nonocclusive DVT of the lower extremity Hypertension Diabetes mellitus Benign prostatic hypertrophy Sleep apnea on CPAP/BiPAP Lymphedema Chronic kidney disease stage III Chronic anemia History of coronary artery disease status post stent placement. Morbid obesity with BMI of 57 PLAN: Continue the vancomycin and cefepime for infected decubitus ulcer. This could be a possibility of underlying osteomyelitis. Surgical consult was obtained back no surgical intervention has been planned as it will not heal due to continued pressure so recommended local wound care. Hematology has been consulted for the nonocclusive DVT and recommended heparin. As the patient refused to get his APTT checked he has been started on Eliquis. As suggested by hematology GI has been consulted. No plans of acute intervention as per GI, as his anemia is anemia of chronic disease. Continue with the rest of his current medication regimen. Patient states that her bed with trapeze would help him. They got him a bed with trapeze, but patient wants a normal mattress and not an air mattress. Nursing staff working on getting him the bed. Overall prognosis is poor.
[2020-05-27] MEDS: CEFEPIME 2 GM in SODIUM CHLORIDE 0.9% 100 ML IVPB SCH ×2 (13:16→23:45)
--- NOTE | 2020-05-27 16:48 | P.PN ---
Subjective Progress Note Date: 05/27/20 CHIEF COMPLAINT: Decubitus ulcer HISTORY OF PRESENT ILLNESS: The patient is a 59-year-old male admitted with decubiti ulcer present on admission including multiple medical comorbidities as well as morbid obesity, BMI over 50, diabetes type 2, hypertensive heart disease, bilateral venous stasis disease. He reports troubles with his back. A specialty bed was ordered for him. He refuses a mattress bed. He did get a trapeze that helps him with moving around in bed. ROS: No reports of nausea and vomiting. No fevers or chills. No new chest pain. No productive sputum PHYSICAL EXAM: VITAL SIGNS: Reviewed CONSTITUTIONAL: Well developed and in no acute distress. EYES: Conjuctivae without sclera icterus. Extraocular movements grossly intact. HEAD, EARS, NOSE, THROAT: Moist buccal mucosa. Head is atraumatic, normocephalic. Hears conversational speech. No nasal drainage. NECK: Supple. No thyroidomegaly. RESPIRATORY: Non-labored respirations and equal bilateral excursions. CARDIOVASCULAR: Palpable 2+ radial pulses. ABDOMEN: No peritonitis. MUSCULOSKELETAL: Right heel with dressing. Bilateral venous stasis disease. SKIN: Good skin turgor. Well perfused. Decubitus ulcer NEUROLOGIC: Cranial nerves II through XII grossly intact. No focal or lateralizing signs. PSYCH: Appropriate affect. Alert and oriented to person, place and time. CLINICAL LABS: White blood cell count improved from 13.1-12.5, now 10.5 ASSESSMENT: 1. Decubitus ulcer 2. Morbid obesity due to excess calories, BMI 57.1 3. Leukocytosis resolving PLAN: 1. Continue rotation for decubiti ulcers 2. Continue IV antibiotics Objective - Vital Signs Vital signs: Vital Signs Temp 98.4 F 05/27/20 11:13 Pulse 93 05/27/20 11:13 Resp 20 05/27/20 11:13 BP 117/63 05/27/20 11:13 Pulse Ox 97 05/27/20 11:13 Intake & Output 05/26/20 05/27/20 05/27/20 19:59 06:59 18:59 Intake Total Output Total Balance Intake: Intake, IV Titration Amount Cefepime 2 gm In Sodium Chloride 0.9% 100 ml @ 25 mls/hr IVPB Q12HR [facility] Rx #:[id number] Sodium Chloride 0.9% 1, 000 ml @ 75 mls/hr IV . [id number] [facility] Rx#:[id number] Vancomycin 2,500 mg In Sodium Chloride 0.9% 500 ml 500 ml @ 167 mls/hr IVPB Q12H [facility] Rx#: [id number] Oral Output: Urine Uretheral (Rodriguez) Other: Voiding Method Indwelling Catheter # Voids - Labs CBC & Chem 7: 05/27/20 06:42 05/27/20 06:42 Labs: Abnormal Lab Results - Last 24 Hours (Table) 05/26/20 05/26/20 05/27/20 Range/Units 17:06 20:18 06:42 RBC (4.30-5.90) m/uL Hgb (13.0-17.5) gm/dL Hct (39.0-53.0) % RDW (11.5-15.5) % Plt Count (150-450) k/uL Potassium 3.2 L (3.5-5.5) mmol/L Carbon Dioxide 21.2 L (21.6-31.8) mmol/L POC Glucose (mg/dL) 139 H 115 H (75-99) mg/dL Calcium 7.8 L (8.7-10.3) mg/dL 05/27/20 05/27/20 05/27/20 Range/Units 06:42 10:20 11:15 RBC 3.05 L (4.30-5.90) m/uL Hgb 9.1 L (13.0-17.5) gm/dL Hct 29.2 L (39.0-53.0) % RDW 16.6 H (11.5-15.5) % Plt Count 525 H (150-450) k/uL Potassium (3.5-5.5) mmol/L Carbon Dioxide (21.6-31.8) mmol/L POC Glucose (mg/dL) 123 H 108 H (75-99) mg/dL Calcium (8.7-10.3) mg/dL Assessment and Plan (1) Venous stasis dermatitis of both lower extremities Current Visit: Yes Status: Acute Code(s): I87.2 - VENOUS INSUFFICIENCY (CHRONIC) (PERIPHERAL) SNOMED Code(s): 71196913 (2) Morbid obesity due to excess calories Current Visit: Yes Status: Acute Code(s): E66.01 - MORBID (SEVERE) OBESITY DUE TO EXCESS CALORIES SNOMED Code(s): 732053510 (3) Adult BMI 50.0-59.9 kg/sq m Current Visit: Yes Status: Acute Code(s): Z68.43 - BODY MASS INDEX [BMI] 50.0-59.9, ADULT SNOMED Code(s): 628218240 (4) Decubitus ulcer Current Visit: Yes Status: Acute Code(s): L89.90 - PRESSURE ULCER OF UNSPECIFIED SITE, UNSPECIFIED STAGE SNOMED Code(s): 093125724 (5) High risk for readmission Current Visit: Yes Status: Acute Code(s): Z91.89 - OTH PERSONAL RISK FACTORS, NOT ELSEWHERE CLASSIFIED SNOMED Code(s): 137373703
[2020-05-27 17:07] LABS: Glucose,Whole Blood 117 mg/dL (75-99)
[2020-05-27] MEDS: MELATONIN 5 MG TABLET PO SCH (20:03)
[2020-05-27] MEDS: TOPIRAMATE 100 MG TAB PO SCH (20:03)
[2020-05-27 20:21] LABS: Glucose,Whole Blood 139 mg/dL (75-99)
[2020-05-28] MEDS: HYDROcodone/APAP 10-325MG 1 EACH TAB PO PRN ×4 (02:24→20:54)
[2020-05-28] MEDS: MORPHINE SULFATE 4 MG/ML SYRINGE IVP PRN ×5 (02:24→22:45)
[2020-05-28] MEDS: PANTOPRAZOLE 40 MG TABLET PO SCH (05:31)
[2020-05-28] MEDS ORDERED: VANCOMYCIN TROUGH DUE 1 EACH MISC MISCELLANE ONE (06:00)
[2020-05-28 06:15] LABS: Anisocytosis Slight; Basophils # (A) 0.1 k/uL (0-0.2); Basophils % (A) 0 %; Eosinophils # (A) 0.6 k/uL (0-0.7); Eosinophils % (A) 4 %; HCT 30.3 % (39.0-53.0); HGB 9.5 gm/dL (13.0-17.5); Hypochromasia Moderate; Lymphocytes # (A) 2.4 k/uL (1.0-4.8); Lymphocytes % (A) 18 %; MCH 29.6 pg (25.0-35.0); MCHC 31.4 g/dL (31.0-37.0); MCV 94.3 fL (80.0-100.0); Mean Platelet Volume 7.2; Monocytes # (A) 1.5 k/uL (0-1.0); Monocytes % (A) 11 %; Neutrophils # (A) 8.7 k/uL (1.3-7.7); Neutrophils % (A) 64 %; Platelet Count 521 k/uL (150-450); Poikilocytosis Slight; RBC 3.22 m/uL (4.30-5.90); RDW 16.9 % (11.5-15.5); WBC 13.5 k/uL (3.8-10.6)
[2020-05-28 06:55] LABS: African American GFR (CKD) >90 (>60 ml/min/1.73 sqM); Anion Gap 7 mmol/L; Blood Urea Nitrogen 9 mg/dL (9-20); Calcium 7.9 mg/dL (8.4-10.2); Carbon Dioxide 19 mmol/L (22-30); Chloride 113 mmol/L (98-107); Glucose 99 mg/dL (74-99); Non-African American GFR(CKD) >90 (>60 ml/min/1.73 sqM); Potassium 3.3 mmol/L (3.5-5.1); Sodium 139 mmol/L (137-145)
[2020-05-28 07:25] LABS: Glucose,Whole Blood 95 mg/dL (75-99)
[2020-05-28] MEDS: INSULIN ASPART (NovoLOG) 100 UNIT/ML VIAL SQ SCH ×4 (08:48→21:06)
[2020-05-28] MEDS: bisacodyL 5 MG TABLET.DR PO SCH (08:57)
[2020-05-28] MEDS: APIXABAN 5 MG TAB PO SCH ×2 (08:57→20:53)
[2020-05-28] MEDS: ASCORBIC ACID 500 MG TAB PO SCH (08:58)
[2020-05-28] MEDS: carvediloL 3.125 MG TAB PO SCH ×2 (08:58→17:32)
[2020-05-28] MEDS: SPIRONOLACTONE 25 MG TAB PO SCH (08:58)
[2020-05-28] MEDS: MULTIVITAMINS, THERA 1 EACH TAB PO SCH (08:58)
[2020-05-28] MEDS: ASPIRIN 81 MG PO SCH (08:58)
[2020-05-28] MEDS: BUMETANIDE 1 MG TAB PO SCH (08:58)
[2020-05-28] MEDS: SODIUM CHLORIDE 0.9% 1,000 ML IV SCH ×4 (09:00→20:56)
[2020-05-28] MEDS ORDERED: FERROUS SULFATE 325 MG TAB PO STA (10:28)
[2020-05-28] MEDS: CEFEPIME 2 GM in SODIUM CHLORIDE 0.9% 100 ML IVPB SCH (12:01)
[2020-05-28 12:05] LABS: Glucose,Whole Blood 103 mg/dL (75-99)
--- NOTE | 2020-05-28 12:48 | P.PN ---
Subjective Progress Note Date: 05/28/20 CHIEF COMPLAINT: Decubitus ulcer HISTORY OF PRESENT ILLNESS: The patient is a 59-year-old male admitted with decubitis ulcer present on admission including multiple medical comorbidities as well as morbid obesity, BMI over 50, diabetes type 2, hypertensive heart disease, bilateral venous stasis disease. Patient is sleeping comfortably. Per nursing he had been complaining of pain. He has [place] on board. He is afebrile. White count 13.5 tolerating a regular diet. PHYSICAL EXAM: VITAL SIGNS: Reviewed. GENERAL: Well-developed in no acute distress. HEENT: No sclera icterus. Extraocular movements grossly intact. Moist buccal mucosa. Head is atraumatic, normocephalic. ABDOMEN: Soft. Nondistended. Nontender. NEUROLOGIC: Alert and oriented. Cranial nerves II through XII grossly intact. Skin: Large stage IV decubitus ulcer ASSESSMENT: 1. Stage IV Decubitus ulcer 2. Morbid obesity due to excess calories, BMI 57.1 3. Leukocytosis PLAN: -Continue IV antibiotics -Continue local wound care -Continue regular heart healthy diet -No surgical intervention planned Physician Clinical Secretary note has been reviewed by physician. Signing provider agrees with the documented findings, assessment, and plan of care. Objective - Vital Signs Vital signs: Vital Signs Temp 98.8 F 05/28/20 04:33 Pulse 96 05/28/20 04:33 Resp 17 05/28/20 04:33 BP 109/72 05/28/20 04:33 Pulse Ox 96 05/28/20 04:33 Intake & Output 05/27/20 05/28/20 05/28/20 18:59 06:59 18:59 Intake Total 500 2740 Output Total 1250 200 550 Balance -750 2540 -550 Intake: Intake, IV Titration 500 1300 Amount Cefepime 2 gm In Sodium 100 Chloride 0.9% 100 ml @ 25 mls/hr IVPB Q12HR@0000, 1200 [facility] Rx#:[id number] Sodium Chloride 0.9% 1, 700 000 ml @ 75 mls/hr IV . [id number] [facility] Rx#:[id number] Vancomycin 2,500 mg In 500 500 Sodium Chloride 0.9% 500 ml 500 ml @ 167 mls/hr IVPB Q12H [facility] Rx#: [id number] Oral 1440 Output: Urine 950 550 Stool 300 200 Other: Voiding Method Indwelling Catheter Indwelling Catheter # Voids 2 - Labs CBC & Chem 7: 05/28/20 05:34 05/28/20 05:34 Labs: Abnormal Lab Results - Last 24 Hours (Table) 05/27/20 05/27/20 05/28/20 Range/Units 16:57 20:20 05:34 WBC (3.8-10.6) k/uL RBC (4.30-5.90) m/uL Hgb (13.0-17.5) gm/dL Hct (39.0-53.0) % RDW (11.5-15.5) % Plt Count (150-450) k/uL Neutrophils # (1.3-7.7) k/uL Monocytes # (0-1.0) k/uL Potassium 3.3 L (3.5-5.1) mmol/L Chloride 113 H (98-107) mmol/L Carbon Dioxide 19 L (22-30) mmol/L POC Glucose (mg/dL) 117 H 139 H (75-99) mg/dL Calcium 7.9 L (8.4-10.2) mg/dL 05/28/20 05/28/20 Range/Units 05:34 11:47 WBC 13.5 H (3.8-10.6) k/uL RBC 3.22 L (4.30-5.90) m/uL Hgb 9.5 L (13.0-17.5) gm/dL Hct 30.3 L (39.0-53.0) % RDW 16.9 H (11.5-15.5) % Plt Count 521 H (150-450) k/uL Neutrophils # 8.7 H (1.3-7.7) k/uL Monocytes # 1.5 H (0-1.0) k/uL Potassium (3.5-5.1) mmol/L Chloride (98-107) mmol/L Carbon Dioxide (22-30) mmol/L POC Glucose (mg/dL) 103 H (75-99) mg/dL Calcium (8.4-10.2) mg/dL
[2020-05-28] MEDS: SODIUM HYPOCHLORITE 0.25% 480 ML BOT MISCELLANE SCH (13:10)
[2020-05-28] MEDS ORDERED: IOPAMIDOL CONTRAST (ORAL USE) VIAL PO PRN (13:23)
[2020-05-28] MEDS ORDERED: MORPHINE SULFATE 2 MG/ML SYRINGE IVP STA (14:12)
[2020-05-28] MEDS: VANCOMYCIN 2,500 MG in SODIUM CHLORIDE 0.9% 500 ML 500 ML IVPB SCH (15:02)
[2020-05-28 17:25] LABS: Glucose,Whole Blood 116 mg/dL (75-99)
[2020-05-28 20:03] LABS: Glucose,Whole Blood 118 mg/dL (75-99)
[2020-05-28] MEDS: MELATONIN 5 MG TABLET PO SCH (20:53)
[2020-05-28] MEDS: TOPIRAMATE 100 MG TAB PO SCH (21:05)
[2020-05-28 21:27] LABS: Glucose,Whole Blood 100 mg/dL (75-99)
--- NOTE | 2020-05-28 23:04 | P.PN ---
Subjective Progress Note Date: 05/28/20 Principal diagnosis: New acute DVTs BLE Patient is refusing CT scan at this time, refusing care of his pressure ulcers. Objective - Vital Signs Vital signs: Vital Signs Temp 98.4 F 05/28/20 20:51 Pulse 83 05/28/20 20:51 Resp 20 05/28/20 20:51 BP 102/57 05/28/20 20:51 Pulse Ox 98 05/28/20 20:51 Intake & Output 05/28/20 05/28/20 05/29/20 06:59 18:59 06:59 Intake Total 2740 1510 Output Total 200 2850 Balance 2540 -1340 Weight 180.53 kg Intake: Intake, IV Titration 1300 Amount Cefepime 2 gm In Sodium 100 Chloride 0.9% 100 ml @ 25 mls/hr IVPB Q12HR@0000, 1200 [facility] Rx#:[id number] Sodium Chloride 0.9% 1, 700 000 ml @ 75 mls/hr IV . [id number] [facility] Rx#:[id number] Vancomycin 2,500 mg In 500 Sodium Chloride 0.9% 500 ml 500 ml @ 167 mls/hr IVPB Q12H [facility] Rx#: [id number] Oral 1440 1510 Output: Urine 2250 Stool 200 600 Other: Voiding Method Indwelling Catheter Indwelling Catheter # Voids 2 - Exam Morbidly obese Alert and oriented, Tearful Neck: Supple Perrl Head: NCNT Heart: RRR Lungs: Difficult to ausculate with body habitus Abdomen: Obese, tender BLE: Edema, skin thickening, vascular insufficency BLE Weakness - Labs CBC & Chem 7: 05/28/20 05:34 05/28/20 05:34 Labs: Abnormal Lab Results - Last 24 Hours (Table) 05/28/20 05/28/20 05/28/20 Range/Units 05:34 05:34 11:47 WBC 13.5 H (3.8-10.6) k/uL RBC 3.22 L (4.30-5.90) m/uL Hgb 9.5 L (13.0-17.5) gm/dL Hct 30.3 L (39.0-53.0) % RDW 16.9 H (11.5-15.5) % Plt Count 521 H (150-450) k/uL Neutrophils # 8.7 H (1.3-7.7) k/uL Monocytes # 1.5 H (0-1.0) k/uL Potassium 3.3 L (3.5-5.1) mmol/L Chloride 113 H (98-107) mmol/L Carbon Dioxide 19 L (22-30) mmol/L POC Glucose (mg/dL) 103 H (75-99) mg/dL Calcium 7.9 L (8.4-10.2) mg/dL 05/28/20 05/28/20 05/28/20 Range/Units 17:24 20:02 21:05 WBC (3.8-10.6) k/uL RBC (4.30-5.90) m/uL Hgb (13.0-17.5) gm/dL Hct (39.0-53.0) % RDW (11.5-15.5) % Plt Count (150-450) k/uL Neutrophils # (1.3-7.7) k/uL Monocytes # (0-1.0) k/uL Potassium (3.5-5.1) mmol/L Chloride (98-107) mmol/L Carbon Dioxide (22-30) mmol/L POC Glucose (mg/dL) 116 H 118 H 100 H (75-99) mg/dL Calcium (8.4-10.2) mg/dL Assessment and Plan Plan: (1) Diabetic foot ulcer associated with type 2 diabetes mellitus, with fat layer exposed Current Visit: No Status: Acute Code(s): E11.621 - TYPE 2 DIABETES MELLITUS WITH FOOT ULCER; L97.502 - NON-PRS CHRONIC ULCER OTH PRT UNSP FOOT W FAT LAYER EXPOSED SNOMED Code(s): 2821097715260 (2) Stage II pressure ulcer of right heel Current Visit: No Status: Acute Code(s): L89.612 - PRESSURE ULCER OF RIGHT HEEL, STAGE 2 SNOMED Code(s): 162003098 (3) Stage IV pressure ulcer of sacral region Current Visit: No Status: Acute Code(s): L89.154 - PRESSURE ULCER OF SACRAL REGION, STAGE 4 SNOMED Code(s): 976595487 Patient with Provoked BLE DVTs secondary to morbid obesity, immobile, chronic LE edema, BLE cellulitis, and decubitus ulcers Normocytic Anemia: - Component of Iron deficiency: GI eval - Likely overall multifactorial with chronic inflammation Continue on heparin drip in anticipation of surgical graft, possible or intervention for decubitus. Switch to DOAC when discharged GI consultation placed, CT abdomen and pelvis placed by primary team patient is refusing at this time. monitor daily CBC
[2020-05-29] MEDS: CEFEPIME 2 GM in SODIUM CHLORIDE 0.9% 100 ML IVPB SCH ×3 (00:29→23:34)
--- NOTE | 2020-05-29 00:57 | P.PN ---
Subjective Progress Note Date: 05/28/20 Principal diagnosis: Infected sacral decubitus ulcer Mr. Lion is a 59-year-old male with a past medical history of morbid obesity, stage IV decubitus ulcers with recent divergent colostomy, coronary artery disease status post stenting, chronic heart failure, COPD, diabetes mellitus, hypertension, BPH, sleep apnea, chronic anemia sent in from [facility] yesterday for possible infected sacral decubitus ulcers. Patient was recently discharged from the hospital for the same. Patient also had recent debridement of his wound at [facility]. At [facility] patient had leukocytosis and he also had ultrasound of the bilateral lower extremity showing nonocclusive DVT. The patient was started on Zosyn and IV vancomycin and sent in here for further evaluation. On 05/26/2020 -patient is lying in bed states that he has pain in his lower back due to ulcers. He states that he has pain all over his body as well. Overnight as per nursing staff report patient refused to get blood work done to check for APTT as he was started on heparin for nonocclusive DVT as a recommended by hematology. So the patient was started on Eliquis instead overnight. Today patient states that he does not like to have blood work done frequently and refusing his medications.Patient denies having any chest pain or palpitations. No cough or difficulty in breathing. No abdominal pain. He has a colostomy and in place and Rodriguez's catheter in place. On reviewing the patient's vitals temperature of 97.6 heart rate of 90 respiratory of 18 blood pressure 117 was patient's labs have been reviewed white count of 12.5, hemoglobin 9, platelets of 498. Sodium 137, potassium 3.2, chloride 107, bicarb 25, BUN 10, creatinine 0.77. Patient keeps requesting pain medications. On 05/27/2020 - patient is lying in bed appears to be in no acute distress. Patient states that he has pain in his lower back due to ulcers and also complains of pain all over his body. Patient has been getting antibiotics in the form of vancomycin and cefepime for possible infected sacral decubitus ulcer. Patient denies having any chest pain or palpitations. No cough or difficulty in breathing. No abdominal pain nausea vomiting or diarrhea. Patient has a Rodriguez's catheter and colostomy in place. On reviewing the patient's vitals he has been afebrile for the past 24 hours. Heart rate between 80s to 90s, respiratory rate around 20, blood pressure 117/63 and saturating at 97% on room air. On reviewing his labs, There is a down trending white count from 12.5-10.1, hemoglobin stable at 9.1 and platelets are 25. Sodium 140, potassium 3.2, chloride 100, bicarbonate 21, BUN 9, creatinine of 0.7. On 05/28/2020 -staff report, patient refused to have wound care to change his dressing this morning. Patient complains of pain and he does not like to be turned over to change his dressing. Patient complains of diffuse abdominal pain. He denies having any nausea or vomiting. He also complains of excessive gas coming out of his colostomy. Patient continues to be on vancomycin and cefepime. On reviewing his vitals T-max of 98.8, 96 heart rate, respiratory rate 17, blood pressure 109/72, saturating at 96% on room air. On reviewing his labs white count of 13.5, hemoglobin 9.5, platelets 521. Sodium 139, potassium 3.3, chloride 113, bicarb 19, BUN 9, creatinine 0.86. TSH is 0.697 vancomycin level 26. Active Medications Acetaminophen (Acetaminophen Tab 325 Mg Tab) 650 mg PO Q6H PRN PRN Reason: Fever and/ or Pain Last Admin: 05/25/20 01:37 Dose: 650 mg Documented by: Hydrocodone Bitart/Acetaminophen (Hydrocodone/Apap 10-325mg 1 Each Tab) 1 each PO Q6H PRN PRN Reason: Pain Last Admin: 05/28/20 20:54 Dose: 1 each Documented by: Apixaban (Apixaban 5 Mg Tab) 10 mg PO BID [facility] Stop: 06/02/20 02:01 Last Admin: 05/28/20 20:53 Dose: 10 mg Documented by: Ascorbic Acid (Ascorbic Acid 500 Mg Tab) 500 mg PO DAILY@0700 [facility] Last Admin: 05/28/20 08:58 Dose: 500 mg Documented by: Aspirin (Aspirin 81 Mg) 81 mg PO DAILY@0700 [facility] Last Admin: 05/28/20 08:58 Dose: 81 mg Documented by: Benzocaine/Menthol (Benzocaine/Menthol Lozeng 1 Each Lozenge) 1 each MUCOUS MEM Q2H PRN PRN Reason: SORE THROAT Bisacodyl (Bisacodyl 5 Mg Tablet.Dr) 20 mg PO DAILY@0700 [facility] Last Admin: 05/28/20 08:57 Dose: 20 mg Documented by: Bumetanide (Bumetanide 1 Mg Tab) 1 mg PO DAILY@0700 [facility] Last Admin: 05/28/20 08:58 Dose: 1 mg Documented by: Carvedilol (Carvedilol 3.125 Mg Tab) 3.125 mg PO BID@0700,1700 [facility] Last Admin: 05/28/20 17:32 Dose: 3.125 mg Documented by: Sodium Chloride (Saline 0.9%) 1,000 mls @ 20 mls/hr IV .Q24H [facility] Last Admin: 05/28/20 20:54 Dose: 20 mls/hr Documented by: Sodium Chloride (Saline 0.9%) 1,000 mls @ 75 mls/hr IV .[id number] [facility] Last Admin: 05/28/20 20:56 Dose: Not Given Documented by: Cefepime HCl 2 gm/ Sodium (Chloride) 100 mls @ 25 mls/hr IVPB Q12HR@0000,1200 [facility] Last Admin: 05/29/20 00:29 Dose: 25 mls/hr Documented by: Vancomycin HCl 2,500 mg/ (Sodium Chloride) 500 mls @ 167 mls/hr IVPB Q18H [facility] Last Admin: 05/28/20 15:02 Dose: 167 mls/hr Documented by: Insulin Aspart (Insulin Aspart (Novolog) 100 Unit/Ml Vial) 0 unit SQ [facility]; Protocol Last Admin: 05/28/20 21:06 Dose: Not Given Documented by: Iopamidol (Iopamidol Contrast (Oral Use) Vial) 30 ml PO Q60M PRN PRN Reason: CT Scan Stop: 05/29/20 13:24 Magnesium Hydroxide (Magnesium Hydroxide 2,400 Mg/10 Ml Cup) 2,400 mg PO DAILY PRN PRN Reason: Constipation Melatonin (Melatonin 5 Mg Tablet) 5 mg PO HS@2100 [facility] Last Admin: 05/28/20 20:53 Dose: 5 mg Documented by: Morphine Sulfate (Morphine Sulfate 4 Mg/Ml Syringe) 4 mg IVP Q4HR PRN PRN Reason: Pain Last Admin: 05/28/20 22:45 Dose: 4 mg Documented by: Multivitamins (Multivitamins, Thera 1 Each Tab) 1 each PO DAILY@0700 [facility] Last Admin: 05/28/20 08:58 Dose: 1 each Documented by: Naloxone HCl (Naloxone 0.4 Mg/Ml 1 Ml Vial) 0.2 mg IV Q2M PRN PRN Reason: Opioid Reversal Pantoprazole Sodium (Pantoprazole 40 Mg Tablet) 40 mg PO DAILY@0600 [facility] Last Admin: 05/28/20 05:31 Dose: 40 mg Documented by: Sodium Hypochlorite (Sodium Hypochlorite 0.25% 480 Ml Bot) 480 ml MISCELLANE DAILY [facility] Last Admin: 05/28/20 13:10 Dose: 480 ml Documented by: Spironolactone (Spironolactone 25 Mg Tab) 25 mg PO DAILY@0700 [facility] Last Admin: 05/28/20 08:58 Dose: 25 mg Documented by: Topiramate (Topiramate 100 Mg Tab) 100 mg PO HS@2100 [facility] Last Admin: 05/28/20 21:05 Dose: 100 mg Documented by: Objective - Vital Signs Vital signs: Vital Signs Temp 98.8 F 05/28/20 04:33 Pulse 96 05/28/20 04:33 Resp 17 05/28/20 04:33 BP 109/72 05/28/20 04:33 Pulse Ox 96 05/28/20 04:33 Intake & Output 05/27/20 05/28/20 05/28/20 18:59 06:59 18:59 Intake Total 500 2740 Output Total 1250 200 550 Balance -750 2540 -550 Intake: Intake, IV Titration 500 1300 Amount Cefepime 2 gm In Sodium 100 Chloride 0.9% 100 ml @ 25 mls/hr IVPB Q12HR@0000, 1200 [facility] Rx#:[id number] Sodium Chloride 0.9% 1, 700 000 ml @ 75 mls/hr IV . [id number] [facility] Rx#:[id number] Vancomycin 2,500 mg In 500 500 Sodium Chloride 0.9% 500 ml 500 ml @ 167 mls/hr IVPB Q12H [facility] Rx#: [id number] Oral 1440 Output: Urine 950 550 Stool 300 200 Other: Voiding Method Indwelling Catheter Indwelling Catheter # Voids 2 - Exam -GENERAL: The patient is alert and oriented x3, in mild acute distress due to pain . Morbidly obese HEENT: Pupils are round and equally reacting to light. EOMI. No scleral icterus. No conjunctival pallor. Normocephalic, atraumatic. No pharyngeal erythema. No t hyromegaly CARDIOVASCULAR: Distant S1 and S2 present. PULMONARY: Distant BS heard ABDOMEN: Soft, diffuse tenderness, nondistended, normoactive bowel sounds. No palpable organomegaly. -MUSCULOSKELETAL: He does not want to turn over on his back -EXTREMITIES: No cyanosis, clubbing. Bilateral leg swelling, right more than left, Chronic Lympadematous changes in both lower extremities. Extremely tender to touch. NEUROLOGICAL: Gross neurological examination did not reveal any focal deficits. He could move all 4 extremities. SKIN: No rashes. No petechiae - Labs CBC & Chem 7: 05/28/20 05:34 05/28/20 05:34 Labs: Abnormal Lab Results - Last 24 Hours (Table) 05/27/20 05/27/20 05/27/20 Range/Units 11:15 16:57 20:20 WBC (3.8-10.6) k/uL RBC (4.30-5.90) m/uL Hgb (13.0-17.5) gm/dL Hct (39.0-53.0) % RDW (11.5-15.5) % Plt Count (150-450) k/uL Neutrophils # (1.3-7.7) k/uL Monocytes # (0-1.0) k/uL Potassium (3.5-5.1) mmol/L Chloride (98-107) mmol/L Carbon Dioxide (22-30) mmol/L POC Glucose (mg/dL) 108 H 117 H 139 H (75-99) mg/dL Calcium (8.4-10.2) mg/dL 05/28/20 05/28/20 Range/Units 05:34 05:34 WBC 13.5 H (3.8-10.6) k/uL RBC 3.22 L (4.30-5.90) m/uL Hgb 9.5 L (13.0-17.5) gm/dL Hct 30.3 L (39.0-53.0) % RDW 16.9 H (11.5-15.5) % Plt Count 521 H (150-450) k/uL Neutrophils # 8.7 H (1.3-7.7) k/uL Monocytes # 1.5 H (0-1.0) k/uL Potassium 3.3 L (3.5-5.1) mmol/L Chloride 113 H (98-107) mmol/L Carbon Dioxide 19 L (22-30) mmol/L POC Glucose (mg/dL) (75-99) mg/dL Calcium 7.9 L (8.4-10.2) mg/dL Assessment and Plan Assessment: ASSESSMENT Infected and foul smeeling Stage IV decubitus ulcers with recent divergent colostomy Pain in the lower back secondary to his pressure ulcer above Bilateral lower extremity DVT, Non-adherence to therapy possible nonocclusive DVT of the lower extremity Hypertension Diabetes mellitus Benign prostatic hypertrophy Sleep apnea on CPAP/BiPAP Lymphedema Chronic kidney disease stage III Chronic anemia History of coronary artery disease status post stent placement. Morbid obesity with BMI of 57 PLAN: As the patient has been complaining of diffuse abdominal pain and it is tender to touch, discussed with him about the option of getting a CAT scan of the abdomen and pelvis. Patient said he will think about it but not sure if he wants to get it. Continue the vancomycin and cefepime for infected decubitus ulcer. This could be a possibility of underlying osteomyelitis. Surgical consult was obtained back no surgical intervention has been planned as it will not heal due to continued pressure so recommended local wound care. Hematology has been consulted for the nonocclusive DVT and recommended heparin. As the pat ient refused to get his APTT checked he has been started on Eliquis. As suggested by hematology GI has been consulted. No plans of acute intervention as per GI, as his anemia is anemia of chronic disease. Continue with the rest of his current medication regimen. Patient states that her bed with trapeze would help him, which he has now. Overall prognosis is very poor.
[2020-05-29] MEDS: HYDROcodone/APAP 10-325MG 1 EACH TAB PO PRN ×4 (03:17→21:10)
[2020-05-29] MEDS: PANTOPRAZOLE 40 MG TABLET PO SCH (05:19)
[2020-05-29] MEDS: MORPHINE SULFATE 4 MG/ML SYRINGE IVP PRN ×3 (06:00→22:32)
[2020-05-29 06:31] LABS: Anisocytosis Slight; Basophils % (A) 0 %; Eosinophils # (A) 0.6 k/uL (0-0.7); Eosinophils % (A) 6 %; HCT 28.2 % (39.0-53.0); HGB 8.9 gm/dL (13.0-17.5); Hypochromasia Moderate; Lymphocytes # (A) 1.6 k/uL (1.0-4.8); Lymphocytes % (A) 17 %; MCH 30.1 pg (25.0-35.0); MCHC 31.5 g/dL (31.0-37.0); MCV 95.5 fL (80.0-100.0); Mean Platelet Volume 6.9; Monocytes # (A) 0.7 k/uL (0-1.0); Monocytes % (A) 7 %; Neutrophils # (A) 6.4 k/uL (1.3-7.7); Neutrophils % (A) 67 %; Platelet Count 438 k/uL (150-450); Poikilocytosis Slight; RBC 2.96 m/uL (4.30-5.90); RDW 16.5 % (11.5-15.5); WBC 9.5 k/uL (3.8-10.6)
[2020-05-29 07:18] LABS: Glucose,Whole Blood 109 mg/dL (75-99)
[2020-05-29] MEDS: INSULIN ASPART (NovoLOG) 100 UNIT/ML VIAL SQ SCH ×4 (07:19→21:02)
[2020-05-29] MEDS: SPIRONOLACTONE 25 MG TAB PO SCH (08:24)
[2020-05-29] MEDS: APIXABAN 5 MG TAB PO SCH ×2 (08:24→21:09)
[2020-05-29] MEDS: ASPIRIN 81 MG PO SCH (08:24)
[2020-05-29] MEDS: bisacodyL 5 MG TABLET.DR PO SCH (08:25)
[2020-05-29] MEDS: carvediloL 3.125 MG TAB PO SCH ×2 (08:25→17:26)
[2020-05-29] MEDS: ASCORBIC ACID 500 MG TAB PO SCH (08:25)
[2020-05-29] MEDS: VANCOMYCIN 2,500 MG in SODIUM CHLORIDE 0.9% 500 ML 500 ML IVPB SCH (08:25)
[2020-05-29] MEDS: MULTIVITAMINS, THERA 1 EACH TAB PO SCH (08:25)
[2020-05-29] MEDS: BUMETANIDE 1 MG TAB PO SCH (08:25)
[2020-05-29 09:07] LABS: Anion Gap 8.1 mmol/L (4.00-12.00); BUN/Creat Ratio 11.11 Ratio (12.00-20.00); Calcium 7.6 mg/dL (8.7-10.3); Carbon Dioxide 24.9 mmol/L (21.6-31.8); Non-African American GFR(CKD) 93.2 (60.0-200.0); Potassium 2.9 mmol/L (3.5-5.5)
[2020-05-29] MEDS ORDERED: Potassium Replacement Protocol 1 EACH MISC MISCELLANE PRN (11:24)
[2020-05-29] MEDS: SODIUM HYPOCHLORITE 0.25% 480 ML BOT MISCELLANE SCH (11:37)
[2020-05-29 11:48] LABS: Glucose,Whole Blood 111 mg/dL (75-99)
--- NOTE | 2020-05-29 12:22 | P.PN ---
Subjective Progress Note Date: 05/29/20 CHIEF COMPLAINT: Decubitus ulcer HISTORY OF PRESENT ILLNESS: The patient is a 59-year-old male admitted with decubitis ulcer present on admission including multiple medical comorbidities as well as morbid obesity, BMI over 50, diabetes type 2, hypertensive heart disease, bilateral venous stasis disease. Patient's nothing in bed comfortably. He is tolerating diet. Denies any nausea or vomiting. He denies any black stools or blood in his stools in the colostomy. He denies any abdominal pain. Case discussed with Dr. Navarro who is recommending patient had EGD and colonoscopy for further workup of his anemia. At this time patient is refusing EGD or colonoscopy. afebrile. WBC 9.5 hemoglobin 8.9 Iron low at 11 ferritin 108.1 patient is on Eliquis PHYSICAL EXAM: VITAL SIGNS: Reviewed. GENERAL: Well-developed in no acute distress. HEENT: No sclera icterus. Extraocular movements grossly intact. Moist buccal mucosa. Head is atraumatic, normocephalic. ABDOMEN: Soft. Nondistended. Nontender. Colostomy bag in place with stool present NEUROLOGIC: Alert and oriented. Cranial nerves II through XII grossly intact. Skin: Large stage IV decubitus ulcer ASSESSMENT: 1. Stage IV Decubitus ulcer 2. Morbid obesity due to excess calories, BMI 57.1 3. Leukocytosis Resolved 4. Bilateral lower extremity DVT on Eliquis 5. Normocytic Anemia likely multifactorial with chronic inflammation, Iron deficiency, malnutrition And chronic decubitus ulcer PLAN: -Continue IV antibiotics -Continue local wound care -Continue regular heart healthy diet -No surgical intervention planned -Discussed with patient regarding having an EGD and colonoscopy completed during this admission. At this time patient has refused to have EGD or colonoscopy Physician Plastics Fabricator Or Welder note has been reviewed by physician. Signing provider agrees with the documented findings, assessment, and plan of care. Objective - Vital Signs Vital signs: Vital Signs Temp 97.5 F L 05/29/20 12:10 Pulse 82 05/29/20 12:10 Resp 18 05/29/20 12:10 BP 104/66 05/29/20 12:10 Pulse Ox 99 05/29/20 12:10 Intake & Output 05/28/20 05/29/20 05/29/20 18:59 06:59 18:59 Intake Total 1510 240 Output Total 2850 550 Balance -1340 -550 240 Weight 180.53 kg Intake: Oral 1510 240 Output: Urine 2250 550 Stool 600 Other: Voiding Method Indwelling Catheter Indwelling Catheter # Voids 2 - Labs CBC & Chem 7: 05/29/20 06:16 05/29/20 06:16 Labs: Abnormal Lab Results - Last 24 Hours (Table) 05/25/20 05/28/20 05/28/20 Range/Units 12:32 17:24 20:02 RBC (4.30-5.90) m/uL Hgb (13.0-17.5) gm/dL Hct (39.0-53.0) % RDW (11.5-15.5) % Potassium (3.5-5.5) mmol/L BUN/Creatinine Ratio (12.00-20.00) Ratio POC Glucose (mg/dL) 116 H 118 H (75-99) mg/dL Calcium (8.7-10.3) mg/dL Methylmalonic Acid 0.70 H (<0.40) umol/L 05/28/20 05/29/20 05/29/20 Range/Units 21:05 06:16 06:16 RBC 2.96 L (4.30-5.90) m/uL Hgb 8.9 L (13.0-17.5) gm/dL Hct 28.2 L (39.0-53.0) % RDW 16.5 H (11.5-15.5) % Potassium 2.9 L (3.5-5.5) mmol/L BUN/Creatinine Ratio 11.11 L (12.00-20.00) Ratio POC Glucose (mg/dL) 100 H (75-99) mg/dL Calcium 7.6 L (8.7-10.3) mg/dL Methylmalonic Acid (<0.40) umol/L 05/29/20 05/29/20 Range/Units 07:09 11:46 RBC (4.30-5.90) m/uL Hgb (13.0-17.5) gm/dL Hct (39.0-53.0) % RDW (11.5-15.5) % Potassium (3.5-5.5) mmol/L BUN/Creatinine Ratio (12.00-20.00) Ratio POC Glucose (mg/dL) 109 H 111 H (75-99) mg/dL Calcium (8.7-10.3) mg/dL Methylmalonic Acid (<0.40) umol/L
[2020-05-29] MEDS: POTASSIUM CHLORIDE ER 20 MEQ TAB.ER PO SCH ×3 (12:37→14:51)
[2020-05-29] MEDS ORDERED: HYDROmorphone 1 MG/ML 1 ML SYRINGE IVP PRN (12:38)
--- NOTE | 2020-05-29 14:52 | P.PN ---
Subjective Progress Note Date: 05/29/20 Principal diagnosis: New acute DVTs BLE Dr. Navarro spoke to patient and surgery about GI work-up and patient again refuses further work-up and intervention. Objective - Vital Signs Vital signs: Vital Signs Temp 97.5 F L 05/29/20 12:10 Pulse 82 05/29/20 12:10 Resp 18 05/29/20 12:10 BP 104/66 05/29/20 12:10 Pulse Ox 99 05/29/20 12:10 Intake & Output 05/28/20 05/29/20 05/29/20 18:59 06:59 18:59 Intake Total 1510 240 Output Total 2850 550 Balance -1340 -550 240 Weight 180.53 kg Intake: Oral 1510 240 Output: Urine 2250 550 Stool 600 Other: Voiding Method Indwelling Catheter Indwelling Catheter # Voids 2 - Exam Morbidly obese Alert and oriented, Tearful Neck: Supple Perrl Head: NCNT Heart: RRR Lungs: Difficult to ausculate with body habitus Abdomen: Obese, tender BLE: Edema, skin thickening, vascular insufficency BLE Weakness - Labs CBC & Chem 7: 05/29/20 06:16 05/29/20 06:16 Labs: Abnormal Lab Results - Last 24 Hours (Table) 05/25/20 05/28/20 05/28/20 Range/Units 12:32 17:24 20:02 RBC (4.30-5.90) m/uL Hgb (13.0-17.5) gm/dL Hct (39.0-53.0) % RDW (11.5-15.5) % Potassium (3.5-5.5) mmol/L BUN/Creatinine Ratio (12.00-20.00) Ratio POC Glucose (mg/dL) 116 H 118 H (75-99) mg/dL Calcium (8.7-10.3) mg/dL Methylmalonic Acid 0.70 H (<0.40) umol/L 05/28/20 05/29/20 05/29/20 Range/Units 21:05 06:16 06:16 RBC 2.96 L (4.30-5.90) m/uL Hgb 8.9 L (13.0-17.5) gm/dL Hct 28.2 L (39.0-53.0) % RDW 16.5 H (11.5-15.5) % Potassium 2.9 L (3.5-5.5) mmol/L BUN/Creatinine Ratio 11.11 L (12.00-20.00) Ratio POC Glucose (mg/dL) 100 H (75-99) mg/dL Calcium 7.6 L (8.7-10.3) mg/dL Methylmalonic Acid (<0.40) umol/L 05/29/20 05/29/20 Range/Units 07:09 11:46 RBC (4.30-5.90) m/uL Hgb (13.0-17.5) gm/dL Hct (39.0-53.0) % RDW (11.5-15.5) % Potassium (3.5-5.5) mmol/L BUN/Creatinine Ratio (12.00-20.00) Ratio POC Glucose (mg/dL) 109 H 111 H (75-99) mg/dL Calcium (8.7-10.3) mg/dL Methylmalonic Acid (<0.40) umol/L Assessment and Plan Plan: (1) Diabetic foot ulcer associated with type 2 diabetes mellitus, with fat layer exposed Current Visit: No Status: Acute Code(s): E11.621 - TYPE 2 DIABETES MELLITUS WITH FOOT ULCER; L97.502 - NON-PRS CHRONIC ULCER OTH PRT UNSP FOOT W FAT LAYER EXPOSED SNOMED Code(s): 5932249209618 (2) Stage II pressure ulcer of right heel Current Visit: No Status: Acute Code(s): L89.612 - PRESSURE ULCER OF RIGHT HEEL, STAGE 2 SNOMED Code(s): 464971912 (3) Stage IV pressure ulcer of sacral region Current Visit: No Status: Acute Code(s): L89.154 - PRESSURE ULCER OF SACRAL REGION, STAGE 4 SNOMED Code(s): 440898986 Patient with Provoked BLE DVTs secondary to morbid obesity, immobile, chronic LE edema, BLE cellulitis, and decubitus ulcers Normocytic Anemia: - Component of Iron deficiency: GI eval - Likely overall multifactorial with chronic inflammation Continue on heparin drip in anticipation of surgical graft, possible or intervention for decubitus. Switch to DOAC when discharged GI work-up with general surgery, CT abdomen and pelvis placed by primary team patient is refusing at this time. monitor daily CBC He has refused GI work-up at this time as well Physician attest: I have completed the full history and physical and agree with above dictation, dictated as a scribe.
[2020-05-29 17:01] LABS: Glucose,Whole Blood 123 mg/dL (75-99)
[2020-05-29] MEDS: SODIUM CHLORIDE 0.9% 1,000 ML IV SCH ×2 (19:08→21:12)
[2020-05-29] MEDS: MELATONIN 5 MG TABLET PO SCH (21:10)
[2020-05-29] MEDS: TOPIRAMATE 100 MG TAB PO SCH (21:11)
[2020-05-29 21:20] LABS: Glucose,Whole Blood 113 mg/dL (75-99)
--- NOTE | 2020-05-29 22:38 | P.PN ---
Subjective This is a pleasant 59 years old male with multiple medical problems including stage IV decubitus ulcers with recent divergent colostomy, coronary artery disease status post stent, chronic heart failure, COPD, diabetes mellitus, hypertension, benign prostatic hypertrophy, sleep apnea on CPAP/BiPAP, generalized weakness, lymphedema, chronic venous hypertension, chronic kidney disease stage III, chronic anemia. Patient from [facility], he was sent to [facility] yesterday for possible infected sacral decubitus ulcer, was recently discharged from the hospital for the same patient admitted with large sacral decubitus ulcer with purulent discharge with increase leukocytosis, also patient has been refusing wound care. Patient is bedbound at baseline. He had recent wound debridement at [facility] Patient is fully awake and oriented, looks in distress due to pressure ulcer in his lower back, patient states that his been hurting more lately however he could not specify for how long it hurts, also patient has been complaining from pain in his both lower extremity and he could not specify for how long, he is h urting more in his right leg than the left leg. He denies chest pain or dyspnea or abdominal pain, has not eaten much probably due to his pain. He denies fever. Patient is afebrile with no fever. Creatinine is normal Had [facility] labs checked and showed leukocytosis of 16.7 K, hemoglobin 9.2, platelets 199 case. Sodium 134, potassium 3.3, glucose 144, creatinine normal 0.9, liver enzymes AST 20 and ALT 15, total bilirubin 0.5, lactic acid is 2, fromcalcitonin is elevated at 1.2, Loya virus not detected, SARScoV-2 not detected. Influenza virus not detected, he had ultrasound of bilateral lower extremity showing non-occlusive DVT Patient is already on Zosyn and IV vancomycin 05/29/2020 This is a pleasant 59 years old male who presents with bilateral DVT of the lower extremities and low back ulcer secondary to stage IV decubitus ulcer. Patient is morbidly obese and is complaining of from significant pain in his low back, since admission patient refusing his low back to be examined, also today when I saw the patient he refused low back to be examined, patient has been refusing many of the management recommendation included CT of the abdomen and pelvis, doing bone scan also has been refusing EGD and colonoscopy, risks including but not limited to cancer are explained to the patient. Today I had an extensive discussion with the patient about the importance of d iagnosing his infection, I explained to him when it was found to rule out osteomyelitis in that case he will need prolonged IV antibiotics while his only soft tissue infection he will not need this long-term antibiotic, patient told me his concern is that if they move them for the test he got significant pain of the lower back, I M to give him Dilaudid and informed him if he needs more pain medication than we can give her more however patient eventually refused a bone scan again today. Patient did not look confused to me today. His ESR is elevated at 115 as well as C-reactive protein at 183. His WBC is normal at 9.0k, low potassium at 2.9 his been replaced per protocol. Keep monitoring potassium and magnesium levels Patient remains on broad-spectrum antibiotics with cefepime and IV vancomycin, wound culture has been requested, he remains on Eliquis 10 mg for acute DVT of both lower extremity and hematology oncology on the team, also he is on gentle hydration with normal saline at 75 mL/h. Review of systems CONSTITUTIONAL: No fever, no malaise, no fatigue. HEENT: No recent visual problems or hearing problems. Denied any sore throat. CARDIOVASCULAR: No orthopnea, PND, no palpitations, no syncope. PULMONARY: No shortness of breath, no cough, no hemoptysis. GASTROINTESTINAL: No diarrhea, no nausea, no vomiting, no abdominal pain. Normoactive bowel sounds. NEUROLOGICAL: No headaches, no weakness, no numbness. Active Medications Generic Name Dose Route Start Last Admin Trade Name Freq PRN Reason Stop Dose Admin Acetaminophen 650 mg 05/24/20 20:22 05/25/20 01:37 Acetaminophen Tab 325 Mg Tab PO 650 mg Q6H PRN Administration Fever and/ or Pain Hydrocodone Bitart/Acetaminophen 1 each 05/24/20 20:28 05/29/20 21:10 Hydrocodone/Apap 10-325mg 1 Each Tab PO 1 each Q6H PRN Administration Pain Apixaban 10 mg 05/26/20 02:00 05/29/20 21:09 Apixaban 5 Mg Tab PO 06/02/20 02:01 10 mg BID MICHAEL Administration Ascorbic Acid 500 mg 05/25/20 07:00 05/29/20 08:25 Ascorbic Acid 500 Mg Tab PO 500 mg DAILY@0700 MICHAEL Administration Aspirin 81 mg 05/25/20 07:00 05/29/20 08:24 Aspirin 81 Mg PO 81 mg DAILY@0700 MICHAEL Administration Benzocaine/Menthol 1 each 05/24/20 20:22 Benzocaine/Menthol Lozeng 1 Each Lozenge MUCOUS MEM Q2H PRN SORE THROAT Bisacodyl 20 mg 05/25/20 07:00 05/29/20 08:25 Bisacodyl 5 Mg Tablet.Dr PO 20 mg DAILY@0700 MICHAEL Administration Bumetanide 1 mg 05/25/20 07:00 05/29/20 08:25 Bumetanide 1 Mg Tab PO 1 mg DAILY@0700 MICHAEL Administration Carvedilol 3.125 mg 05/25/20 07:00 05/29/20 17:26 Carvedilol 3.125 Mg Tab PO 3.125 mg BID@0700,1700 MICHAEL Administration Hydromorphone HCl 1 mg 05/29/20 12:38 05/29/20 12:47 Hydromorphone 1 Mg/Ml 1 Ml Syringe IVP 1 mg ONCE PRN Administration Pain Sodium Chloride 1,000 mls @ 20 mls/hr 05/24/20 18:15 05/28/20 20:54 Saline 0.9% IV 20 mls/hr .Q24H MICHAEL Administration Sodium Chloride 1,000 mls @ 75 mls/hr 05/25/20 12:30 05/29/20 21:12 Saline 0.9% IV 75 mls/hr .[id number] MICHAEL Administration Cefepime HCl 2 gm/ Sodium 100 mls @ 25 mls/hr 05/27/20 13:30 05/29/20 13:49 Chloride IVPB 25 mls/hr Q12HR@0000,1200 MICHAEL Administration Vancomycin HCl 2,500 mg/ 500 mls @ 167 mls/hr 05/28/20 14:00 05/29/20 08:25 Sodium Chloride IVPB 167 mls/hr Q18H MICHAEL Administration Insulin Aspart 0 unit 05/25/20 07:30 05/29/20 21:02 Insulin Aspart (Novolog) 100 Unit/Ml Vial SQ Not Given ACHS MICHAEL Protocol Magnesium Hydroxide 2,400 mg 05/24/20 20:22 Magnesium Hydroxide 2,400 Mg/10 Ml Cup PO DAILY PRN Constipation Melatonin 5 mg 05/24/20 21:00 05/29/20 21:10 Melatonin 5 Mg Tablet PO 5 mg HS@2100 MICHAEL Administration Miscellaneous Information 0 each 05/30/20 19:00 Vancomycin Trough Due 1 Each Misc MISCELLANE 05/30/20 19:01 DIRECTED ONE Miscellaneous Information 1 each 05/29/20 11:24 Potassium Replacement Protocol 1 Each Misc MISCELLANE DAILY PRN Per Protocol Protocol Multivitamins 1 each 05/25/20 07:00 05/29/20 08:25 Multivitamins, Thera 1 Each Tab PO 1 each DAILY@0700 MICHAEL Administration Naloxone HCl 0.2 mg 05/24/20 18:01 Naloxone 0.4 Mg/Ml 1 Ml Vial IV Q2M PRN Opioid Reversal Pantoprazole Sodium 40 mg 05/25/20 06:00 05/29/20 05:19 Pantoprazole 40 Mg Tablet PO 40 mg DAILY@0600 MICHAEL Administration Sodium Hypochlorite 480 ml 05/25/20 09:00 05/29/20 11:37 Sodium Hypochlorite 0.25% 480 Ml Bot MISCELLANE Not Given DAILY [facility] Spironolactone 25 mg 05/25/20 07:00 05/29/20 08:24 Spironolactone 25 Mg Tab PO 25 mg DAILY@0700 MICHAEL Administration Topiramate 100 mg 05/24/20 21:00 05/29/20 21:11 Topiramate 100 Mg Tab PO 100 mg HS@2100 MICHAEL Administration Objective - Vital Signs Vital signs: Vital Signs Temp 97.5 F L 05/29/20 12:10 Pulse 82 05/29/20 12:10 Resp 18 05/29/20 12:10 BP 104/66 05/29/20 12:10 Pulse Ox 99 05/29/20 12:10 Intake & Output 05/28/20 05/29/20 05/29/20 18:59 06:59 18:59 Intake Total 1510 460 Output Total 2850 550 1000 Balance -1340 -550 -540 Weight 180.53 kg Intake: Oral 1510 460 Output: Urine 2250 550 1000 Stool 600 Other: Voiding Method Indwelling Catheter Indwelling Catheter Indwelling Catheter # Voids 2 - Exam -GENERAL: The patient is alert and oriented x3, not in any acute distress. Morbidly obese HEENT: Pupils are round and equally reacting to light. EOMI. No scleral icterus. No conjunctival pallor. Normocephalic, atraumatic. No pharyngeal erythema. No th yromegaly. CARDIOVASCULAR: S1 and S2 present. No murmurs, rubs, or gallops. PULMONARY: Chest is clear to auscultation, no wheezing or crackles. ABDOMEN: Soft, nontender, nondistended, normoactive bowel sounds. No palpable organomegaly. -MUSCULOSKELETAL: No joint swelling or deformity. Patient refused to examine his back on several occasions EXTREMITIES: No cyanosis, clubbing, or pedal edema. NEUROLOGICAL: Gross neurological examination did not reveal any focal deficits. SKIN: No rashes. no petechiae. - Labs CBC & Chem 7: 05/29/20 06:16 05/29/20 06:16 Labs: Abnormal Lab Results - Last 24 Hours (Table) 05/25/20 05/28/20 05/28/20 Range/Units 12:32 20:02 21:05 RBC (4.30-5.90) m/uL Hgb (13.0-17.5) gm/dL Hct (39.0-53.0) % RDW (11.5-15.5) % Potassium (3.5-5.5) mmol/L BUN/Creatinine Ratio (12.00-20.00) Ratio POC Glucose (mg/dL) 118 H 100 H (75-99) mg/dL Calcium (8.7-10.3) mg/dL Methylmalonic Acid 0.70 H (<0.40) umol/L 05/29/20 05/29/20 05/29/20 Range/Units 06:16 06:16 07:09 RBC 2.96 L (4.30-5.90) m/uL Hgb 8.9 L (13.0-17.5) gm/dL Hct 28.2 L (39.0-53.0) % RDW 16.5 H (11.5-15.5) % Potassium 2.9 L (3.5-5.5) mmol/L BUN/Creatinine Ratio 11.11 L (12.00-20.00) Ratio POC Glucose (mg/dL) 109 H (75-99) mg/dL Calcium 7.6 L (8.7-10.3) mg/dL Methylmalonic Acid (<0.40) umol/L 05/29/20 05/29/20 Range/Units 11:46 16:59 RBC (4.30-5.90) m/uL Hgb (13.0-17.5) gm/dL Hct (39.0-53.0) % RDW (11.5-15.5) % Potassium (3.5-5.5) mmol/L BUN/Creatinine Ratio (12.00-20.00) Ratio POC Glucose (mg/dL) 111 H 123 H (75-99) mg/dL Calcium (8.7-10.3) mg/dL Methylmalonic Acid (<0.40) umol/L Assessment and Plan Assessment: Stage IV decubitus ulcers (per documents as patient refused back exam ) with recent divergent colostomy Pain in the lower back secondary to his pressure ulcer above Bilateral lower extremity DVT, on Eliquis Non-adherence to therapy Hypertension Diabetes mellitus Benign prostatic hypertrophy Sleep apnea on CPAP/BiPAP Lymphedema Chronic kidney disease stage III Chronic anemia History of coronary artery disease status post stent placement. Morbid obesity with BMI of 57 Plan: This is a pleasant 59 years old male who presents with decubitus pressure ulcer, surgical input is appreciated consult wound care. Pain management, Will cornelius nue with antibiotic, patient keep refusing bone scan to rule out osteomyelitis. Risks and benefits are explained extensively, start gentle hydration. check ultrasound of the lower extremity. however we will start him on heparin drip now and call hematology consult Labs and medication were reviewed.. Continue same treatment. Continue with symptomatic treatment. Resume home medication. Monitor lytes and vitals. DVT and GI prophylaxis. Further recommendations depends on the clinical course of the patient DVT prophylaxis: Eliquis GI Prophylaxis: Pepcid Prognosis is guarded
[2020-05-30] MEDS: VANCOMYCIN 2,500 MG in SODIUM CHLORIDE 0.9% 500 ML 500 ML IVPB SCH (03:16)
[2020-05-30] MEDS: HYDROcodone/APAP 10-325MG 1 EACH TAB PO PRN ×4 (03:17→21:13)
[2020-05-30] MEDS: PANTOPRAZOLE 40 MG TABLET PO SCH (05:07)
[2020-05-30 05:15] LABS: Anisocytosis Slight; Basophils # (A) 0.1 k/uL (0-0.2); Basophils % (A) 1 %; Eosinophils # (A) 0.7 k/uL (0-0.7); Eosinophils % (A) 8 %; HCT 28.9 % (39.0-53.0); HGB 8.9 gm/dL (13.0-17.5); Hypochromasia Moderate; Lymphocytes # (A) 1.5 k/uL (1.0-4.8); Lymphocytes % (A) 16 %; MCH 29.5 pg (25.0-35.0); MCHC 30.8 g/dL (31.0-37.0); MCV 95.7 fL (80.0-100.0); Mean Platelet Volume 6.6; Monocytes # (A) 0.8 k/uL (0-1.0); Monocytes % (A) 9 %; Neutrophils % (A) 65 %; Platelet Count 451 k/uL (150-450); Poikilocytosis Slight; RBC 3.02 m/uL (4.30-5.90); RDW 16.6 % (11.5-15.5); WBC 9.3 k/uL (3.8-10.6)
[2020-05-30 07:12] LABS: Glucose,Whole Blood 91 mg/dL (75-99)
[2020-05-30] MEDS: INSULIN ASPART (NovoLOG) 100 UNIT/ML VIAL SQ SCH ×4 (07:43→21:58)
[2020-05-30] MEDS: APIXABAN 5 MG TAB PO SCH ×2 (07:54→21:13)
[2020-05-30] MEDS: MULTIVITAMINS, THERA 1 EACH TAB PO SCH (07:54)
[2020-05-30] MEDS: ASCORBIC ACID 500 MG TAB PO SCH (07:54)
[2020-05-30] MEDS: SPIRONOLACTONE 25 MG TAB PO SCH (07:54)
[2020-05-30] MEDS: bisacodyL 5 MG TABLET.DR PO SCH (07:54)
[2020-05-30] MEDS: ASPIRIN 81 MG PO SCH (07:54)
[2020-05-30] MEDS: carvediloL 3.125 MG TAB PO SCH ×2 (07:54→17:35)
[2020-05-30] MEDS: BUMETANIDE 1 MG TAB PO SCH (07:55)
[2020-05-30 10:12] LABS: African American GFR (CKD) 113.3 (60.0-200.0); Anion Gap 4.6 mmol/L (4.00-12.00); BUN/Creat Ratio 11.25 Ratio (12.00-20.00); Calcium 7.6 mg/dL (8.7-10.3); Carbon Dioxide 26.4 mmol/L (21.6-31.8); Non-African American GFR(CKD) 97.8 (60.0-200.0)
[2020-05-30 11:12] LABS: Glucose,Whole Blood 104 mg/dL (75-99)
--- NOTE | 2020-05-30 11:35 | P.PN ---
Subjective Progress Note Date: 05/30/20 CHIEF COMPLAINT: Decubitus ulcer HISTORY OF PRESENT ILLNESS: The patient is a 59-year-old male admitted with decubitis ulcer present on admission including multiple medical comorbidities as well as morbid obesity, BMI over 50, diabetes type 2, hypertensive heart disease, bilateral venous stasis disease. Patient is lying in bed comfortably. He is tolerating diet. Denies any nausea or vomiting. He denies any black stools or blood in his stools in the colostomy. He denies any abdominal pain. Case discussed with Dr. Navarro who is recommending patient had EGD and colonoscopy for further workup of his anemia. At this time patient is refusing EGD or colonoscopy. Patient refuses nursing staff to rotate him or allowing them to apply wound care. afebrile. WBC 9.3 hemoglobin 8.9 Iron low at 11 ferritin 108.1 PHYSICAL EXAM: VITAL SIGNS: Reviewed. GENERAL: Well-developed in no acute distress. HEENT: No sclera icterus. Extraocular movements grossly intact. Moist buccal mucosa. Head is atraumatic, normocephalic. ABDOMEN: Soft. Nondistended. Nontender. Colostomy bag in place with stool present NEUROLOGIC: Alert and oriented. Cranial nerves II through XII grossly intact. Skin: Large stage IV decubitus ulcer ASSESSMENT: 1. Stage IV Decubitus ulcer 2. Morbid obesity due to excess calories, BMI 57.1 3. Leukocytosis Resolved 4. Bilateral lower extremity DVT on Eliquis 5. Normocytic Anemia likely multifactorial with chronic inflammation, Iron deficiency, malnutrition And chronic decubitus ulcer PLAN: -Continue IV antibiotics -Continue local wound care -Continue regular heart healthy diet -No surgical intervention planned -Discussed with patient again today regarding having an EGD and colonoscopy completed during this admission. Patient continues to refuse EGD or colonoscopy Physician Mooner note has been reviewed by physician. Signing provider agrees with the documented findings, assessment, and plan of care. Objective - Vital Signs Vital signs: Vital Signs Temp 97.7 F 05/30/20 05:00 Pulse 84 05/30/20 05:00 Resp 20 05/30/20 05:00 BP 152/84 05/30/20 05:00 Pulse Ox 96 05/30/20 05:00 Intake & Output 05/29/20 05/30/20 05/30/20 18:59 06:59 18:59 Intake Total 460 2050 Output Total 1000 900 Balance -540 1150 Intake: Intake, IV Titration 1250 Amount Cefepime 2 gm In Sodium 100 Chloride 0.9% 100 ml @ 25 mls/hr IVPB Q12HR@0000, 1200 [facility] Rx#:[id number] Sodium Chloride 0.9% 1, 900 000 ml @ 75 mls/hr IV . [id number] MICHAEL Rx#:[id number] Vancomycin 2,500 mg In 250 Sodium Chloride 0.9% 500 ml 500 ml @ 167 mls/hr IVPB Q18H MICHAEL Rx#: [id number] Oral 460 800 Output: Urine 1000 900 Other: Voiding Method Indwelling Catheter Indwelling Catheter - Labs CBC & Chem 7: 05/30/20 04:44 05/30/20 04:44 Labs: Abnormal Lab Results - Last 24 Hours (Table) 05/29/20 05/29/20 05/29/20 Range/Units 11:46 16:20 16:59 RBC (4.30-5.90) m/uL Hgb (13.0-17.5) gm/dL Hct (39.0-53.0) % MCHC (31.0-37.0) g/dL RDW (11.5-15.5) % Plt Count (150-450) k/uL Potassium 3.3 L (3.5-5.5) mmol/L Chloride (96-109) mmol/L BUN/Creatinine Ratio (12.00-20.00) Ratio POC Glucose (mg/dL) 111 H 123 H (75-99) mg/dL Calcium (8.7-10.3) mg/dL 05/29/20 05/30/20 05/30/20 Range/Units 21:01 04:44 04:44 RBC 3.02 L (4.30-5.90) m/uL Hgb 8.9 L (13.0-17.5) gm/dL Hct 28.9 L (39.0-53.0) % MCHC 30.8 L (31.0-37.0) g/dL RDW 16.6 H (11.5-15.5) % Plt Count 451 H (150-450) k/uL Potassium 3.0 L (3.5-5.5) mmol/L Chloride 110 H (96-109) mmol/L BUN/Creatinine Ratio 11.25 L (12.00-20.00) Ratio POC Glucose (mg/dL) 113 H (75-99) mg/dL Calcium 7.6 L (8.7-10.3) mg/dL 05/30/20 Range/Units 11:10 RBC (4.30-5.90) m/uL Hgb (13.0-17.5) gm/dL Hct (39.0-53.0) % MCHC (31.0-37.0) g/dL RDW (11.5-15.5) % Plt Count (150-450) k/uL Potassium (3.5-5.5) mmol/L Chloride (96-109) mmol/L BUN/Creatinine Ratio (12.00-20.00) Ratio POC Glucose (mg/dL) 104 H (75-99) mg/dL Calcium (8.7-10.3) mg/dL
[2020-05-30] MEDS: SODIUM HYPOCHLORITE 0.25% 480 ML BOT MISCELLANE SCH (11:55)
[2020-05-30] MEDS: CEFEPIME 2 GM in SODIUM CHLORIDE 0.9% 100 ML IVPB SCH (11:56)
[2020-05-30 17:13] LABS: Glucose,Whole Blood 100 mg/dL (75-99)
[2020-05-30] MEDS: SODIUM CHLORIDE 0.9% 1,000 ML IV SCH ×2 (17:36)
[2020-05-30] MEDS ORDERED: VANCOMYCIN TROUGH DUE 1 EACH MISC MISCELLANE ONE (19:00)
[2020-05-30] MEDS ORDERED: VANCOMYCIN IV PER PHARMACY 1 EACH MISC MISCELLANE PRN (19:38)
--- NOTE | 2020-05-30 20:42 | P.PN ---
Subjective This is a pleasant 59 years old male with multiple medical problems including stage IV decubitus ulcers with recent divergent colostomy, coronary artery disease status post stent, chronic heart failure, COPD, diabetes mellitus, hypertension, benign prostatic hypertrophy, sleep apnea on CPAP/BiPAP, generalized weakness, lymphedema, chronic venous hypertension, chronic kidney disease stage III, chronic anemia. Patient from [facility], he was sent to [facility] yesterday for possible infected sacral decubitus ulcer, was recently discharged from the hospital for the same patient admitted with large sacral decubitus ulcer with purulent discharge with increase leukocytosis, also patient has been refusing wound care. Patient is bedbound at baseline. He had recent wound debridement at [facility] Patient is fully awake and oriented, looks in distress due to pressure ulcer in his lower back, patient states that his been hurting more lately however he could not specify for how long it hurts, also patient has been complaining from pain in his both lower extremity and he could not specify for how long, he is h urting more in his right leg than the left leg. He denies chest pain or dyspnea or abdominal pain, has not eaten much probably due to his pain. He denies fever. Patient is afebrile with no fever. Creatinine is normal Had [facility] labs checked and showed leukocytosis of 16.7 K, hemoglobin 9.2, platelets 199 case. Sodium 134, potassium 3.3, glucose 144, creatinine normal 0.9, liver enzymes AST 20 and ALT 15, total bilirubin 0.5, lactic acid is 2, fromcalcitonin is elevated at 1.2, Loya virus not detected, SARScoV-2 not detected. Influenza virus not detected, he had ultrasound of bilateral lower extremity showing non-occlusive DVT Patient is already on Zosyn and IV vancomycin 05/29/2020 This is a pleasant 59 years old male who presents with bilateral DVT of the lower extremities and low back ulcer secondary to stage IV decubitus ulcer. Patient is morbidly obese and is complaining of from significant pain in his low back, since admission patient refusing his low back to be examined, also today when I saw the patient he refused low back to be examined, patient has been refusing many of the management recommendation included CT of the abdomen and pelvis, doing bone scan also has been refusing EGD and colonoscopy, risks including but not limited to cancer are explained to the patient. Today I had an extensive discussion with the patient about the importance of d iagnosing his infection, I explained to him when it was found to rule out osteomyelitis in that case he will need prolonged IV antibiotics while his only soft tissue infection he will not need this long-term antibiotic, patient told me his concern is that if they move them for the test he got significant pain of the lower back, I M to give him Dilaudid and informed him if he needs more pain medication than we can give her more however patient eventually refused a bone scan again today. Patient did not look confused to me today. His ESR is elevated at 115 as well as C-reactive protein at 183. His WBC is normal at 9.0k, low potassium at 2.9 his been replaced per protocol. Keep monitoring potassium and magnesium levels Patient remains on broad-spectrum antibiotics with cefepime and IV vancomycin, wound culture has been requested, he remains on Eliquis 10 mg for acute DVT of both lower extremity and hematology oncology on the team, also he is on gentle hydration with normal saline at 75 mL/h. 05/30/2020 Yesterday patient refused to do bone scan despite provided with Dilaudid, he sta nikunj that his main concern is back pain while moving him or during the test, today I talked to him again for the importance of doing the test with the risks and benefits are explained extensively again, he agreed to do the test, hold for his concerns regarding significant pain in his lower back was consulted pain management/anesthesia service, as per staff patient 1 down stairs due to the test, and he was anesthesia service at site to provide sedation for the patient during the bone scan, however patient refused to do the test again and came back to the room. There is concerns that the patient is not making the right decision for his health and to assess his capacity to make medical decision I discussed with the staff and bedside nurse to consult psychiatry service. Objective - Vital Signs Vital signs: Vital Signs Temp 97.9 F 05/30/20 11:39 Pulse 81 05/30/20 16:00 Resp 22 05/30/20 16:00 BP 99/57 05/30/20 11:39 Pulse Ox 97 05/30/20 11:39 Intake & Output 05/29/20 05/30/20 05/30/20 18:59 06:59 18:59 Intake Total 460 2050 400 Output Total 1000 900 200 Balance -540 1150 200 Intake: Intake, IV Titration 1250 400 Amount Cefepime 2 gm In Sodium 100 100 Chloride 0.9% 100 ml @ 25 mls/hr IVPB Q12HR@0000, 1200 [facility] Rx#:[id number] Sodium Chloride 0.9% 1, 900 300 000 ml @ 75 mls/hr IV . [id number] [facility] Rx#:[id number] Vancomycin 2,500 mg In 250 Sodium Chloride 0.9% 500 ml 500 ml @ 167 mls/hr IVPB Q18H [facility] Rx#: [id number] Oral 460 800 Output: Urine 1000 900 Stool 200 Other: Voiding Method Indwelling Catheter Indwelling Catheter Indwelling Catheter - Exam -GENERAL: The patient is alert and oriented x3, not in any acute distress. Morbidly obese HEENT: Pupils are round and equally reacting to light. EOMI. No scleral icterus. No conjunctival pallor. Normocephalic, atraumatic. No pharyngeal erythema. No thyromegaly. CARDIOVASCULAR: S1 and S2 present. No murmurs, rubs, or gallops. PULMONARY: Chest is clear to auscultation, no wheezing or crackles. ABDOMEN: Soft, nontender, nondistended, normoactive bowel sounds. No palpable organomegaly. -MUSCULOSKELETAL: No joint swelling or deformity. Patient refused to examine his back on several occasions EXTREMITIES: No cyanosis, clubbing, or pedal edema. NEUROLOGICAL: Gross neurological examination did not reveal any focal deficits. SKIN: No rashes. no petechiae. - Labs CBC & Chem 7: 05/30/20 04:44 05/30/20 04:44 Labs: Abnormal Lab Results - Last 24 Hours (Table) 05/29/20 05/29/20 05/29/20 Range/Units 16:20 16:59 21:01 RBC (4.30-5.90) m/uL Hgb (13.0-17.5) gm/dL Hct (39.0-53.0) % MCHC (31.0-37.0) g/dL RDW (11.5-15.5) % Plt Count (150-450) k/uL Potassium 3.3 L (3.5-5.5) mmol/L Chloride (96-109) mmol/L BUN/Creatinine Ratio (12.00-20.00) Ratio POC Glucose (mg/dL) 123 H 113 H (75-99) mg/dL Calcium (8.7-10.3) mg/dL 05/30/20 05/30/20 05/30/20 Range/Units 04:44 04:44 11:10 RBC 3.02 L (4.30-5.90) m/uL Hgb 8.9 L (13.0-17.5) gm/dL Hct 28.9 L (39.0-53.0) % MCHC 30.8 L (31.0-37.0) g/dL RDW 16.6 H (11.5-15.5) % Plt Count 451 H (150-450) k/uL Potassium 3.0 L (3.5-5.5) mmol/L Chloride 110 H (96-109) mmol/L BUN/Creatinine Ratio 11.25 L (12.00-20.00) Ratio POC Glucose (mg/dL) 104 H (75-99) mg/dL Calcium 7.6 L (8.7-10.3) mg/dL Assessment and Plan Assessment: Stage IV decubitus ulcers (per documents as patient refused back exam ) with recent divergent colostomy Pain in the lower back secondary to his pressure ulcer above Bilateral lower extremity DVT, on Eliquis Non-adherence to therapy , and refusal of treatment, need to be assessed for his capacity to make medical decision Hypertension Diabetes mellitus Benign prostatic hypertrophy Sleep apnea on CPAP/BiPAP Lymphedema Chronic kidney disease stage III Chronic anemia History of coronary artery disease status post stent placement. Morbid obesity with BMI of 57 Plan: This is a pleasant 59 years old male who presents with decubitus pressure ulcer, surgical input is appreciated consult wound care. Pain management, Will continue with antibiotic, patient keep refusing bone scan to rule out osteomyelitis. Risks and benefits are explained extensively, continue with IV gentle hydration. Consult psychiatry service. Follow-up hematology consult Labs and medication were reviewed.. Continue same treatment. Continue with symptomatic treatment. Resume home medication. Monitor lytes and vitals. DVT and GI prophylaxis. Further recommendations depends on the clinical course of the patient DVT prophylaxis: Eliquis GI Prophylaxis: Pepcid Prognosis is guarded
[2020-05-30 20:57] LABS: Glucose,Whole Blood 107 mg/dL (75-99)
[2020-05-30] MEDS: MELATONIN 5 MG TABLET PO SCH (21:13)
[2020-05-30] MEDS: TOPIRAMATE 100 MG TAB PO SCH (21:13)
[2020-05-31] MEDS: CEFEPIME 2 GM in SODIUM CHLORIDE 0.9% 100 ML IVPB SCH ×3 (00:16→23:21)
[2020-05-31] MEDS: HYDROcodone/APAP 10-325MG 1 EACH TAB PO PRN ×4 (03:50→22:18)
[2020-05-31] MEDS: SODIUM CHLORIDE 0.9% 1,000 ML IV SCH ×3 (05:51→21:07)
[2020-05-31] MEDS: PANTOPRAZOLE 40 MG TABLET PO SCH (06:16)
[2020-05-31 07:34] LABS: Anisocytosis Slight; Basophils % (A) 0 %; Eosinophils # (A) 0.7 k/uL (0-0.7); Eosinophils % (A) 6 %; HCT 29.2 % (39.0-53.0); HGB 9.2 gm/dL (13.0-17.5); Hypochromasia Moderate; Lymphocytes # (A) 1.8 k/uL (1.0-4.8); Lymphocytes % (A) 17 %; MCH 29.7 pg (25.0-35.0); MCHC 31.4 g/dL (31.0-37.0); MCV 94.6 fL (80.0-100.0); Mean Platelet Volume 6.9; Monocytes # (A) 0.7 k/uL (0-1.0); Monocytes % (A) 6 %; Neutrophils # (A) 7.3 k/uL (1.3-7.7); Neutrophils % (A) 69 %; Platelet Count 463 k/uL (150-450); Poikilocytosis Moderate; RBC 3.09 m/uL (4.30-5.90); RDW 16.7 % (11.5-15.5); WBC 10.6 k/uL (3.8-10.6)
[2020-05-31 07:35] LABS: Glucose,Whole Blood 93 mg/dL (75-99)
[2020-05-31] MEDS: MULTIVITAMINS, THERA 1 EACH TAB PO SCH (07:42)
[2020-05-31] MEDS: ASCORBIC ACID 500 MG TAB PO SCH (07:43)
[2020-05-31] MEDS: bisacodyL 5 MG TABLET.DR PO SCH (07:43)
[2020-05-31] MEDS: SPIRONOLACTONE 25 MG TAB PO SCH (07:43)
[2020-05-31] MEDS: ASPIRIN 81 MG PO SCH (07:43)
[2020-05-31] MEDS: BUMETANIDE 1 MG TAB PO SCH (07:43)
[2020-05-31] MEDS: APIXABAN 5 MG TAB PO SCH ×2 (07:43→21:06)
[2020-05-31] MEDS: carvediloL 3.125 MG TAB PO SCH ×2 (07:43→16:25)
[2020-05-31] MEDS: INSULIN ASPART (NovoLOG) 100 UNIT/ML VIAL SQ SCH ×4 (07:44→21:02)
[2020-05-31] MEDS: SODIUM HYPOCHLORITE 0.25% 480 ML BOT MISCELLANE SCH (07:44)
[2020-05-31 11:03] LABS: African American GFR (CKD) 119.7 (60.0-200.0); Anion Gap 9.3 mmol/L (4.00-12.00); BUN/Creat Ratio 11.43 Ratio (12.00-20.00); Calcium 7.6 mg/dL (8.7-10.3); Carbon Dioxide 23.7 mmol/L (21.6-31.8); Non-African American GFR(CKD) 103.3 (60.0-200.0); Potassium 2.8 mmol/L (3.5-5.5)
[2020-05-31 11:04] LABS: Vancomycin,Random 27.7 ug/mL (0.0-40.0)
--- NOTE | 2020-05-31 12:10 | P.CN ---
Psychiatric Consult - . Consult date: 05/31/20 Consult:: IDENTIFYING DATA: This patient is a 59-year-old male with multiple medical problems including stage IV decubitus ulcers, colostomy, CAD status post stent, CHF, COPD, diabetes mellitus, hypertension, BPH, sleep apnea on CPAP/BiPA P, CKD stage III who is currently admitted for possible infected sacral decubitus ulcer. HISTORY OF PRESENT ILLNESS: Psychiatry has been consulted for capacity evaluation. The patient has been refusing dressing changes, and a bone scan. The primary treatment team has tried multiple times to have the patient undergo a bone scan to which the patient is in agreement but when he appears worried the test, the patient experienced extreme anxiety and refuses to have the exam performed. The patient expresses to this provider that he is uncertain why he feels anxious and afraid of the exam. He reports he feels that he is claustrophobic and panics when the exam is about to start. He reports a strong desire to have the exam done and is able to verbalize that if he does not have his dressings changed or undergo this exam, he can quickly deteriorate and possibly . Patient expresses he does not want to . He reports he wants to do the exam but his fear takes over. He denies any suicidal or homicidal ideation, intention, and/or plan. He reports no auditory or visual hallucinations. He reports no issues with substance use. He denies any alcohol, tobacco, or illicit drug use. PAST PSYCHIATRIC HISTORY: Patient denies any history of psychiatric treatment. He reports no previous psychiatric diagnoses. He reports no prior attempts at suicide. PAST MEDICAL HISTORY: stage IV decubitus ulcers, colostomy, CAD status post stent, CHF, COPD, diabetes mellitus, hypertension, BPH, sleep apnea on CPAP/BiPAP, CKD stage III ALLERGIES: as per EMR. CHEMICAL DEPENDENCY HISTORY: Denies FAMILY PSYCHIATRIC/SUBSTANCE USE HISTORY: denies SOCIAL HISTORY: Patient was born in [place], [place]. He was raised in [facility]. He lives by himself. He is on disability. 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 MENTAL STATUS EXAM: General Appearance: Patient appears to be older than stated age is alert, pleasant, and cooperative. Patient has an obese body habitus. He has noticeable dressings on his lower extremities. Skin discoloration is noticeable. Behavior: Patient is lying in bed without any agitated behavior. Speech: Patient's speech is fluent and nonpressured. Mood/Affect: Patient reports their mood is "just so scared", affect is congruent, anxious Suicidality/Homicidality: Patient denies having any suicidal or homicidal ideation intent or plan. Perceptions: Patient denies any visual hallucinations and denies any auditory hallucinations Though content/process: There is no evidence of any delusional thought content and thought process is linear and goal-directed. Memory and concentration: AOX3, grossly intact for the purposes of this session. Can spell "WORLD" backwards Judgment and insight: Fair IMPRESSIONS: Anxiety disorder, unspecified PLAN: -Patient is currently refusing any psychotropic medications that he would have to take daily. He reports that he is open to as needed medication for anxiety. -Patient DOES have decision making capacity at this time and is able to reason through and communicate/appreciate the risks, benefits and alternatives to treatment. -Would recommend ativan or klonopin as needed for anxiety pending discretion of the primary team as patient receives pain management. -Psychiatry will sign off at this point, please contact with any questions. 05/31/20 11:58
--- NOTE | 2020-05-31 12:30 | P.PN ---
Subjective Progress Note Date: 05/31/20 CHIEF COMPLAINT: Decubitus ulcer HISTORY OF PRESENT ILLNESS: The patient is a 59-year-old male admitted with decubitis ulcer present on admission including multiple medical comorbidities as well as morbid obesity, BMI over 50, diabetes type 2, hypertensive heart disease, bilateral venous stasis disease. Patient is lying in bed comfortably. He is tolerating diet. Denies any nausea or vomiting. He denies any black stools or blood in his stools in the colostomy. He denies any abdominal pain. Per patient he did allow the nurses to do wound care. Afebrile. WBC 10.6 Hgb 9.2 patient evaluated by psychiatry today PHYSICAL EXAM: VITAL SIGNS: Reviewed. GENERAL: Well-developed in no acute distress. HEENT: No sclera icterus. Extraocular movements grossly intact. Moist buccal mucosa. Head is atraumatic, normocephalic. ABDOMEN: Soft. Nondistended. Nontender. Colostomy bag in place with stool present NEUROLOGIC: Alert and oriented. Cranial nerves II through XII grossly intact. Skin: Large stage IV decubitus ulcer ASSESSMENT: 1. Stage IV Decubitus ulcer 2. Morbid obesity due to excess calories, BMI 57.1 3. Leukocytosis Resolved 4. Bilateral lower extremity DVT on Eliquis 5. Normocytic Anemia likely multifactorial with chronic inflammation, Iron deficiency, malnutrition And chronic decubitus ulcer PLAN: -Continue IV antibiotics -Continue local wound care -Continue regular heart healthy diet -No surgical intervention planned -Patient refuses to have EGD and colonoscopy Physician Manager Art note has been reviewed by physician. Signing provider agrees with the documented findings, assessment, and plan of care. Objective - Vital Signs Vital signs: Vital Signs Temp 97.7 F 05/31/20 04:45 Pulse 91 05/31/20 08:00 Resp 22 05/31/20 08:00 BP 130/71 05/31/20 04:45 Pulse Ox 97 05/31/20 04:45 Intake & Output 05/30/20 05/31/20 05/31/20 18:59 06:59 18:59 Intake Total 400 900 Output Total 200 1200 Balance 200 -300 Intake: Intake, IV Titration 400 900 Amount Cefepime 2 gm In Sodium 100 Chloride 0.9% 100 ml @ 25 mls/hr IVPB Q12HR@0000, 1200 [facility] Rx#:[id number] Sodium Chloride 0.9% 1, 300 900 000 ml @ 75 mls/hr IV . [id number] [facility] Rx#:[id number] Output: Urine 1200 Uretheral (Rodriguez) 200 Stool 200 Other: Voiding Method Indwelling Catheter Indwelling Catheter Indwelling Catheter - Labs CBC & Chem 7: 05/31/20 07:06 05/31/20 07:06 Labs: Abnormal Lab Results - Last 24 Hours (Table) 05/30/20 05/30/20 05/30/20 Range/Units 17:11 18:43 20:47 RBC (4.30-5.90) m/uL Hgb (13.0-17.5) gm/dL Hct (39.0-53.0) % RDW (11.5-15.5) % Plt Count (150-450) k/uL Potassium (3.5-5.5) mmol/L Chloride (96-109) mmol/L BUN (9.0-27.0) mg/dL BUN/Creatinine Ratio (12.00-20.00) Ratio POC Glucose (mg/dL) 100 H 107 H (75-99) mg/dL Calcium (8.7-10.3) mg/dL Vancomycin Trough 33.4 H* ug/mL 05/31/20 05/31/20 Range/Units 07:06 07:06 RBC 3.09 L (4.30-5.90) m/uL Hgb 9.2 L (13.0-17.5) gm/dL Hct 29.2 L (39.0-53.0) % RDW 16.7 H (11.5-15.5) % Plt Count 463 H (150-450) k/uL Potassium 2.8 L (3.5-5.5) mmol/L Chloride 110 H (96-109) mmol/L BUN 8.0 L (9.0-27.0) mg/dL BUN/Creatinine Ratio 11.43 L (12.00-20.00) Ratio POC Glucose (mg/dL) (75-99) mg/dL Calcium 7.6 L (8.7-10.3) mg/dL Vancomycin Trough ug/mL
[2020-05-31 12:32] LABS: Glucose,Whole Blood 96 mg/dL (75-99)
[2020-05-31 16:51] LABS: Glucose,Whole Blood 91 mg/dL (75-99)
[2020-05-31 20:47] LABS: Glucose,Whole Blood 93 mg/dL (75-99)
[2020-05-31] MEDS: MELATONIN 5 MG TABLET PO SCH (21:06)
[2020-05-31] MEDS: TOPIRAMATE 100 MG TAB PO SCH (21:07)
[2020-05-31] MEDS: POTASSIUM CHLORIDE ER 20 MEQ TAB.ER PO SCH ×2 (23:20→23:21)
[2020-06-01] MEDS: HYDROcodone/APAP 10-325MG 1 EACH TAB PO PRN ×4 (02:44→20:39)
[2020-06-01] MEDS: PANTOPRAZOLE 40 MG TABLET PO SCH (05:37)
[2020-06-01 05:58] LABS: Anisocytosis Slight; Basophils % (A) 0 %; Eosinophils # (A) 0.7 k/uL (0-0.7); Eosinophils % (A) 7 %; HGB 9.3 gm/dL (13.0-17.5); Hypochromasia Moderate; Lymphocytes # (A) 1.8 k/uL (1.0-4.8); Lymphocytes % (A) 17 %; MCHC 31.9 g/dL (31.0-37.0); Mean Platelet Volume 7.1; Monocytes # (A) 0.8 k/uL (0-1.0); Monocytes % (A) 8 %; Neutrophils # (A) 7.1 k/uL (1.3-7.7); Neutrophils % (A) 67 %; Platelet Count 449 k/uL (150-450); Poikilocytosis Slight; RBC 3.09 m/uL (4.30-5.90); RDW 16.7 % (11.5-15.5); WBC 10.6 k/uL (3.8-10.6)
[2020-06-01 06:57] LABS: African American GFR (CKD) >90 (>60 ml/min/1.73 sqM); Anion Gap 3 mmol/L; Blood Urea Nitrogen 7 mg/dL (9-20); C Reactive Protein 40.1 mg/L (<10.0); Calcium 7.9 mg/dL (8.4-10.2); Carbon Dioxide 24 mmol/L (22-30); Chloride 112 mmol/L (98-107); Glucose 92 mg/dL (74-99); Non-African American GFR(CKD) >90 (>60 ml/min/1.73 sqM); Potassium 2.9 mmol/L (3.5-5.1); Sodium 139 mmol/L (137-145)
[2020-06-01 06:59] LABS: Vancomycin,Random 17.9 ug/mL
[2020-06-01 07:36] LABS: Glucose,Whole Blood 89 mg/dL (75-99)
[2020-06-01] MEDS: APIXABAN 5 MG TAB PO SCH ×2 (09:00→20:38)
[2020-06-01] MEDS ORDERED: VANCOMYCIN 2,250 MG in SODIUM CHLORIDE 0.9% 500 ML 500 ML IVPB ONE (09:00)
[2020-06-01] MEDS: MULTIVITAMINS, THERA 1 EACH TAB PO SCH (09:00)
[2020-06-01] MEDS: SPIRONOLACTONE 25 MG TAB PO SCH (09:00)
[2020-06-01] MEDS: carvediloL 3.125 MG TAB PO SCH ×2 (09:00→17:05)
[2020-06-01] MEDS: ASPIRIN 81 MG PO SCH (09:01)
[2020-06-01] MEDS: bisacodyL 5 MG TABLET.DR PO SCH (09:01)
[2020-06-01] MEDS: SODIUM HYPOCHLORITE 0.25% 480 ML BOT MISCELLANE SCH (09:01)
[2020-06-01] MEDS: BUMETANIDE 1 MG TAB PO SCH (09:01)
[2020-06-01] MEDS: ASCORBIC ACID 500 MG TAB PO SCH (09:01)
[2020-06-01] MEDS: INSULIN ASPART (NovoLOG) 100 UNIT/ML VIAL SQ SCH ×4 (09:02→21:09)
[2020-06-01] MEDS: SODIUM CHLORIDE 0.9% 1,000 ML IV SCH ×3 (09:07→17:05)
[2020-06-01] MEDS ORDERED: Potassium Replacement Protocol 1 EACH MISC MISCELLANE PRN (09:32)
[2020-06-01 11:24] LABS: Erythrocyte Sedimentation Rate 106 mm/Hr (0-20)
[2020-06-01 11:51] LABS: Glucose,Whole Blood 99 mg/dL (75-99)
[2020-06-01] MEDS: POTASSIUM CHLORIDE ER 20 MEQ TAB.ER PO SCH ×2 (12:20→12:21)
[2020-06-01] MEDS: CEFEPIME 2 GM in SODIUM CHLORIDE 0.9% 100 ML IVPB SCH (12:21)
--- NOTE | 2020-06-01 13:33 | P.PN ---
Subjective Progress Note Date: 06/01/20 CHIEF COMPLAINT: Decubitus ulcer HISTORY OF PRESENT ILLNESS: The patient is a 59-year-old male admitted with decubitis ulcer present on admission including multiple medical comorbidities as well as morbid obesity, BMI over 50, diabetes type 2, hypertensive heart disease, bilateral venous stasis disease. Patient is lying in bed comfortably. He is tolerating diet. Denies any nausea or vomiting. He denies any black stools or blood in his stools in the colostomy. He denies any abdominal pain. Per patient he did allow the nurses to do wound care. Afebrile. WBC 10.6 Hgb 9.2 potassium 2.9 PHYSICAL EXAM: VITAL SIGNS: Reviewed. GENERAL: Well-developed in no acute distress. HEENT: No sclera icterus. Extraocular movements grossly intact. Moist buccal mucosa. Head is atraumatic, normocephalic. ABDOMEN: Soft. Nondistended. Nontender. Colostomy bag in place with stool present NEUROLOGIC: Alert and oriented. Cranial nerves II through XII grossly intact. Skin: Large stage IV decubitus ulcer ASSESSMENT: 1. Stage IV Decubitus ulcer 2. Morbid obesity due to excess calories, BMI 57.1 3. Leukocytosis Resolved 4. Bilateral lower extremity DVT on Eliquis 5. Normocytic Anemia likely multifactorial with chronic inflammation, Iron deficiency, malnutrition And chronic decubitus ulcer PLAN: -Continue IV antibiotics -Continue local wound care -Continue regular heart healthy diet -No surgical intervention planned -Patient refuses to have EGD and colonoscopy for further anemia workup -Replace potassium per protocol and check magnesium level Physician Student Services Rep note has been reviewed by physician. Signing provider agrees with the documented findings, assessment, and plan of care. Objective - Vital Signs Vital signs: Vital Signs Temp 97.6 F 06/01/20 12:34 Pulse 80 06/01/20 12:34 Resp 19 06/01/20 12:34 BP 116/70 06/01/20 12:34 Pulse Ox 96 06/01/20 12:34 Intake & Output 05/31/20 06/01/20 06/01/20 18:59 06:59 18:59 Intake Total 100 1850 Output Total 1200 3350 Balance -1100 -1500 Weight 180.53 kg Intake: Intake, IV Titration 100 Amount Cefepime 2 gm In Sodium 100 Chloride 0.9% 100 ml @ 25 mls/hr IVPB Q12HR@0000, 1200 [facility] Rx#:[id number] Oral 1850 Output: Urine 1000 2650 Stool 200 700 Other: Voiding Method Indwelling Catheter Indwelling Catheter Indwelling Catheter # Voids 2 - Labs CBC & Chem 7: 06/01/20 05:07 06/01/20 05:07 Labs: Abnormal Lab Results - Last 24 Hours (Table) 05/31/20 06/01/20 06/01/20 Range/Units 20:36 05:07 05:07 RBC 3.09 L (4.30-5.90) m/uL Hgb 9.3 L (13.0-17.5) gm/dL Hct 29.0 L (39.0-53.0) % RDW 16.7 H (11.5-15.5) % ESR 106 H (0-20) mm/Hr Potassium 3.0 L 2.9 L (3.5-5.1) mmol/L Chloride 112 H (98-107) mmol/L BUN 7 L (9-20) mg/dL Calcium 7.9 L (8.4-10.2) mg/dL C-Reactive Protein 40.1 H (<10.0) mg/L
[2020-06-01] MEDS ORDERED: Magnesium Replacement Protocol 1 EACH MISC MISCELLANE PRN (14:13)
[2020-06-01] MEDS: MAGNESIUM SULFATE-D5W PMX 1 GM in DEXTROSE/WATER 1 100ML.BAG IVPB SCH ×3 (14:27→17:05)
[2020-06-01 16:50] LABS: Glucose,Whole Blood 106 mg/dL (75-99)
[2020-06-01 20:23] LABS: Glucose,Whole Blood 94 mg/dL (75-99)
[2020-06-01] MEDS: TOPIRAMATE 100 MG TAB PO SCH (20:39)
[2020-06-01] MEDS: MELATONIN 5 MG TABLET PO SCH (20:39)
--- NOTE | 2020-06-02 00:16 | P.PN ---
Subjective This is a pleasant 59 years old male with multiple medical problems including stage IV decubitus ulcers with recent divergent colostomy, coronary artery disease status post stent, chronic heart failure, COPD, diabetes mellitus, hypertension, benign prostatic hypertrophy, sleep apnea on CPAP/BiPAP, generalized weakness, lymphedema, chronic venous hypertension, chronic kidney disease stage III, chronic anemia. Patient from [facility], he was sent to [facility] yesterday for possible infected sacral decubitus ulcer, was recently discharged from the hospital for the same patient admitted with large sacral decubitus ulcer with purulent discharge with increase leukocytosis, also patient has been refusing wound care. Patient is bedbound at baseline. He had recent wound debridement at [facility] Patient is fully awake and oriented, looks in distress due to pressure ulcer in his lower back, patient states that his been hurting more lately however he could not specify for how long it hurts, also patient has been complaining from pain in his both lower extremity and he could not specify for how long, he is h urting more in his right leg than the left leg. He denies chest pain or dyspnea or abdominal pain, has not eaten much probably due to his pain. He denies fever. Patient is afebrile with no fever. Creatinine is normal Had [facility] labs checked and showed leukocytosis of 16.7 K, hemoglobin 9.2, platelets 199 case. Sodium 134, potassium 3.3, glucose 144, creatinine normal 0.9, liver enzymes AST 20 and ALT 15, total bilirubin 0.5, lactic acid is 2, fromcalcitonin is elevated at 1.2, Loya virus not detected, SARScoV-2 not detected. Influenza virus not detected, he had ultrasound of bilateral lower extremity showing non-occlusive DVT Patient is already on Zosyn and IV vancomycin 05/29/2020 This is a pleasant 59 years old male who presents with bilateral DVT of the lower extremities and low back ulcer secondary to stage IV decubitus ulcer. Patient is morbidly obese and is complaining of from significant pain in his low back, since admission patient refusing his low back to be examined, also today when I saw the patient he refused low back to be examined, patient has been refusing many of the management recommendation included CT of the abdomen and pelvis, doing bone scan also has been refusing EGD and colonoscopy, risks including but not limited to cancer are explained to the patient. Today I had an extensive discussion with the patient about the importance of d iagnosing his infection, I explained to him when it was found to rule out osteomyelitis in that case he will need prolonged IV antibiotics while his only soft tissue infection he will not need this long-term antibiotic, patient told me his concern is that if they move them for the test he got significant pain of the lower back, I M to give him Dilaudid and informed him if he needs more pain medication than we can give her more however patient eventually refused a bone scan again today. Patient did not look confused to me today. His ESR is elevated at 115 as well as C-reactive protein at 183. His WBC is normal at 9.0k, low potassium at 2.9 his been replaced per protocol. Keep monitoring potassium and magnesium levels Patient remains on broad-spectrum antibiotics with cefepime and IV vancomycin, wound culture has been requested, he remains on Eliquis 10 mg for acute DVT of both lower extremity and hematology oncology on the team, also he is on gentle hydration with normal saline at 75 mL/h. 05/30/2020 Yesterday patient refused to do bone scan despite provided with Dilaudid, he sta nikunj that his main concern is back pain while moving him or during the test, today I talked to him again for the importance of doing the test with the risks and benefits are explained extensively again, he agreed to do the test, hold for his concerns regarding significant pain in his lower back was consulted pain management/anesthesia service, as per staff patient 1 down stairs due to the test, and he was anesthesia service at site to provide sedation for the patient during the bone scan, however patient refused to do the test again and came back to the room. There is concerns that the patient is not making the right decision for his health and to assess his capacity to make medical decision I discussed with the staff and bedside nurse to consult psychiatry service. 05/31/2020 Patient is fully awake and oriented, he is been evaluated by psychiatrist for him to have capacity to make medical decision Patient still refusing test Ordering wound culture Continue with IV antibiotics with cefepime and vancomycin, continue with IV hydration Objective - Vital Signs Vital signs: Vital Signs Temp 97.5 F L 05/31/20 12:38 Pulse 96 05/31/20 16:00 Resp 19 11/05/20 16:00 BP 107/68 05/31/20 12:38 Pulse Ox 96 05/31/20 12:38 Intake & Output 05/30/20 05/31/20 05/31/20 18:59 06:59 18:59 Intake Total 400 900 100 Output Total 200 1200 1200 Balance 200 -300 -1100 Weight 180.53 kg Intake: Intake, IV Titration 400 900 100 Amount Cefepime 2 gm In Sodium 100 100 Chloride 0.9% 100 ml @ 25 mls/hr IVPB Q12HR@0000, 1200 [facility] Rx#:[id number] Sodium Chloride 0.9% 1, 300 900 000 ml @ 75 mls/hr IV . [id number] [facility] Rx#:[id number] Output: Urine 1200 1000 Uretheral (Rodriguez) 200 Stool 200 200 Other: Voiding Method Indwelling Catheter Indwelling Catheter Indwelling Catheter # Voids 2 - Exam -GENERAL: The patient is alert and oriented x3, not in any acute distress. Morbidly obese HEENT: Pupils are round and equally reacting to light. EOMI. No scleral icterus. No conjunctival pallor. Normocephalic, atraumatic. No pharyngeal erythema. No thyromegaly. CARDIOVASCULAR: S1 and S2 present. No murmurs, rubs, or gallops. PULMONARY: Chest is clear to auscultation, no wheezing or crackles. ABDOMEN: Soft, nontender, nondistended, normoactive bowel sounds. No palpable organomegaly. -MUSCULOSKELETAL: No joint swelling or deformity. Patient refused to examine his back on several occasions EXTREMITIES: No cyanosis, clubbing, or pedal edema. NEUROLOGICAL: Gross neurological examination did not reveal any focal deficits. SKIN: No rashes. no petechiae. - Labs CBC & Chem 7: 06/01/20 05:07 06/01/20 05:07 Labs: Abnormal Lab Results - Last 24 Hours (Table) 05/30/20 05/30/20 05/31/20 Range/Units 18:43 20:47 07:06 RBC (4.30-5.90) m/uL Hgb (13.0-17.5) gm/dL Hct (39.0-53.0) % RDW (11.5-15.5) % Plt Count (150-450) k/uL Potassium 2.8 L (3.5-5.5) mmol/L Chloride 110 H (96-109) mmol/L BUN 8.0 L (9.0-27.0) mg/dL BUN/Creatinine Ratio 11.43 L (12.00-20.00) Ratio POC Glucose (mg/dL) 107 H (75-99) mg/dL Calcium 7.6 L (8.7-10.3) mg/dL Vancomycin Trough 33.4 H* ug/mL 05/31/20 Range/Units 07:06 RBC 3.09 L (4.30-5.90) m/uL Hgb 9.2 L (13.0-17.5) gm/dL Hct 29.2 L (39.0-53.0) % RDW 16.7 H (11.5-15.5) % Plt Count 463 H (150-450) k/uL Potassium (3.5-5.5) mmol/L Chloride (96-109) mmol/L BUN (9.0-27.0) mg/dL BUN/Creatinine Ratio (12.00-20.00) Ratio POC Glucose (mg/dL) (75-99) mg/dL Calcium (8.7-10.3) mg/dL Vancomycin Trough ug/mL Assessment and Plan Assessment: Stage IV decubitus ulcers (per documents as patient refused back exam ) with recent divergent colostomy Pain in the lower back secondary to his pressure ulcer above Bilateral lower extremity DVT, on Eliquis Non-adherence to therapy , and refusal of treatment, need to be assessed for his capacity to make medical decision Hypertension Diabetes mellitus Benign prostatic hypertrophy Sleep apnea on CPAP/BiPAP Lymphedema Chronic kidney disease stage III Chronic anemia History of coronary artery disease status post stent placement. Morbid obesity with BMI of 57 Plan: This is a pleasant 59 years old male who presents with decubitus pressure ulcer, surgical input is appreciated consult wound care. Pain management, Will continue with antibiotic, patient keep refusing bone scan to rule out osteomyelitis. Risks and benefits are explained extensively, continue with IV gentle hydration. Consult psychiatry service. Follow-up hematology consult Labs and medication were reviewed.. Continue same treatment. Continue with symptomatic treatment. Resume home medication. Monitor lytes and vitals. DVT and GI prophylaxis. Further recommendations depends on the clinical course of the patient DVT prophylaxis: Eliquis GI Prophylaxis: Pepcid Prognosis is guarded
[2020-06-02] MEDS ORDERED: clonazePAM 0.5 MG TAB PO PRN (00:22)
--- NOTE | 2020-06-02 00:39 | P.PN ---
Subjective This is a pleasant 59 years old male with multiple medical problems including stage IV decubitus ulcers with recent divergent colostomy, coronary artery disease status post stent, chronic heart failure, COPD, diabetes mellitus, hypertension, benign prostatic hypertrophy, sleep apnea on CPAP/BiPAP, generalized weakness, lymphedema, chronic venous hypertension, chronic kidney disease stage III, chronic anemia. Patient from [facility], he was sent to [facility] yesterday for possible infected sacral decubitus ulcer, was recently discharged from the hospital for the same patient admitted with large sacral decubitus ulcer with purulent discharge with increase leukocytosis, also patient has been refusing wound care. Patient is bedbound at baseline. He had recent wound debridement at [facility] Patient is fully awake and oriented, looks in distress due to pressure ulcer in his lower back, patient states that his been hurting more lately however he could not specify for how long it hurts, also patient has been complaining from pain in his both lower extremity and he could not specify for how long, he is h urting more in his right leg than the left leg. He denies chest pain or dyspnea or abdominal pain, has not eaten much probably due to his pain. He denies fever. Patient is afebrile with no fever. Creatinine is normal Had [facility] labs checked and showed leukocytosis of 16.7 K, hemoglobin 9.2, platelets 199 case. Sodium 134, potassium 3.3, glucose 144, creatinine normal 0.9, liver enzymes AST 20 and ALT 15, total bilirubin 0.5, lactic acid is 2, fromcalcitonin is elevated at 1.2, Loya virus not detected, SARScoV-2 not detected. Influenza virus not detected, he had ultrasound of bilateral lower extremity showing non-occlusive DVT Patient is already on Zosyn and IV vancomycin 05/29/2020 This is a pleasant 59 years old male who presents with bilateral DVT of the lower extremities and low back ulcer secondary to stage IV decubitus ulcer. Patient is morbidly obese and is complaining of from significant pain in his low back, since admission patient refusing his low back to be examined, also today when I saw the patient he refused low back to be examined, patient has been refusing many of the management recommendation included CT of the abdomen and pelvis, doing bone scan also has been refusing EGD and colonoscopy, risks including but not limited to cancer are explained to the patient. Today I had an extensive discussion with the patient about the importance of d iagnosing his infection, I explained to him when it was found to rule out osteomyelitis in that case he will need prolonged IV antibiotics while his only soft tissue infection he will not need this long-term antibiotic, patient told me his concern is that if they move them for the test he got significant pain of the lower back, I M to give him Dilaudid and informed him if he needs more pain medication than we can give her more however patient eventually refused a bone scan again today. Patient did not look confused to me today. His ESR is elevated at 115 as well as C-reactive protein at 183. His WBC is normal at 9.0k, low potassium at 2.9 his been replaced per protocol. Keep monitoring potassium and magnesium levels Patient remains on broad-spectrum antibiotics with cefepime and IV vancomycin, wound culture has been requested, he remains on Eliquis 10 mg for acute DVT of both lower extremity and hematology oncology on the team, also he is on gentle hydration with normal saline at 75 mL/h. 05/30/2020 Yesterday patient refused to do bone scan despite provided with Dilaudid, he sta nikunj that his main concern is back pain while moving him or during the test, today I talked to him again for the importance of doing the test with the risks and benefits are explained extensively again, he agreed to do the test, hold for his concerns regarding significant pain in his lower back was consulted pain management/anesthesia service, as per staff patient 1 down stairs due to the test, and he was anesthesia service at site to provide sedation for the patient during the bone scan, however patient refused to do the test again and came back to the room. There is concerns that the patient is not making the right decision for his health and to assess his capacity to make medical decision I discussed with the staff and bedside nurse to consult psychiatry service. 06/01/2020 Patient is awake still complaining of from pain in his lower back, as per psychiatry patient has capacity to make medical decision. Patient still refusing physical examination of his lower back and the nuclear bone scan I talked to the patient again and he said he will reconsider doing the test, Klonopin can be given prior to the test to alleviate his anxiety ESR and C-reactive protein are still Elevated Dr. Escamilla from infectious disease team was off service in the previous days, however today he is back and I met him with staff rounding on patient in the hospital. We will consult Dr. Escamilla again today. Also we will order x-ray of the lumbar spine tomorrow His ESR still significantly elevated after 1 week of therapy at 106 compared to 115 on 05/25 Low potassium 2.9 is being replaced per protocol. Start the patient on KCl 10 mEq daily Repeat labs this morning Objective - Vital Signs Vital signs: Vital Signs Temp 97.6 F 06/01/20 12:34 Pulse 80 06/01/20 12:34 Resp 19 06/01/20 12:34 BP 116/70 06/01/20 12:34 Pulse Ox 96 06/01/20 12:34 Intake & Output 05/31/20 06/01/20 06/01/20 18:59 06:59 18:59 Intake Total 100 1850 900 Output Total 1200 3350 1650 Balance -1100 -1500 -750 Weight 180.53 kg Intake: Intake, IV Titration 100 Amount Cefepime 2 gm In Sodium 100 Chloride 0.9% 100 ml @ 25 mls/hr IVPB Q12HR@0000, 1200 [facility] Rx#:[id number] Oral 1850 900 Output: Urine 1000 2650 1650 Uretheral (Rodriguez) 800 Stool 200 700 Other: Voiding Method Indwelling Catheter Indwelling Catheter Indwelling Catheter # Voids 2 - Exam -GENERAL: The patient is alert and oriented x3, not in any acute distress. Morbidly obese HEENT: Pupils are round and equally reacting to light. EOMI. No scleral icterus. No conjunctival pallor. Normocephalic, atraumatic. No pharyngeal erythema. No thyromegaly. CARDIOVASCULAR: S1 and S2 present. No murmurs, rubs, or gallops. PULMONARY: Chest is clear to auscultation, no wheezing or crackles. ABDOMEN: Soft, nontender, nondistended, normoactive bowel sounds. No palpable organomegaly. -MUSCULOSKELETAL: No joint swelling or deformity. Patient refused to examine his back on several occasions EXTREMITIES: No cyanosis, clubbing, or pedal edema. NEUROLOGICAL: Gross neurological examination did not reveal any focal deficits. SKIN: No rashes. no petechiae. - Labs CBC & Chem 7: 06/01/20 05:07 06/01/20 05:07 Labs: Abnormal Lab Results - Last 24 Hours (Table) 05/31/20 06/01/20 06/01/20 Range/Units 20:36 05:07 05:07 RBC 3.09 L (4.30-5.90) m/uL Hgb 9.3 L (13.0-17.5) gm/dL Hct 29.0 L (39.0-53.0) % RDW 16.7 H (11.5-15.5) % ESR 106 H (0-20) mm/Hr Potassium 3.0 L 2.9 L (3.5-5.1) mmol/L Chloride 112 H (98-107) mmol/L BUN 7 L (9-20) mg/dL Calcium 7.9 L (8.4-10.2) mg/dL C-Reactive Protein 40.1 H (<10.0) mg/L Assessment and Plan Assessment: Stage IV decubitus ulcers (per documents as patient refused back exam ) with recent divergent colostomy Pain in the lower back secondary to his pressure ulcer above Severe hypokalemia Bilateral lower extremity DVT, on Eliquis Non-adherence to therapy , and refusal of treatment, need to be assessed for his capacity to make medical decision Hypertension Diabetes mellitus Benign prostatic hypertrophy Sleep apnea on CPAP/BiPAP Lymphedema Chronic kidney disease stage III Chronic anemia History of coronary artery disease status post stent placement. Morbid obesity with BMI of 57 Plan: This is a pleasant 59 years old male who presents with decubitus pressure ulcer, surgical input is appreciated consult wound care. Pain management, Will continue with antibiotic, patient keep refusing bone scan to rule out osteomyelitis. Risks and benefits are explained extensively, continue with IV gentle hydration. Follow-up recommendation by psychiatry service. Follow-up hematology consult Consult infectious disease.We will need help from infectious disease as patient is on 2 broad-spectrum antibiotics currently and although pus noted on patient close before however full examination is limited by patient refusing to do imaging. We are not sure about the discharge antibiotics are with her the patient will need PICC line on going back to his [facility]. Labs and medication were reviewed.. Continue same treatment. Continue with symptomatic treatment. Resume home medication. Monitor lytes and vitals. DVT and GI prophylaxis. Further recommendations depends on the clinical course of the patient DVT prophylaxis: Eliquis GI Prophylaxis: Pepcid Prognosis is guarded
[2020-06-02] MEDS: CEFEPIME 2 GM in SODIUM CHLORIDE 0.9% 100 ML IVPB SCH ×3 (00:44→23:20)
[2020-06-02] MEDS: HYDROcodone/APAP 10-325MG 1 EACH TAB PO PRN ×4 (03:10→21:05)
[2020-06-02] MEDS: PANTOPRAZOLE 40 MG TABLET PO SCH (06:00)
[2020-06-02 07:09] LABS: Glucose,Whole Blood 91 mg/dL (75-99)
[2020-06-02 08:10] LABS: Anisocytosis Slight; Basophils % (A) 0 %; Eosinophils # (A) 0.6 k/uL (0-0.7); Eosinophils % (A) 5 %; HCT 30.2 % (39.0-53.0); HGB 9.7 gm/dL (13.0-17.5); Hypochromasia Moderate; Lymphocytes % (A) 16 %; MCH 30.1 pg (25.0-35.0); MCV 93.9 fL (80.0-100.0); Mean Platelet Volume 6.9; Monocytes # (A) 0.7 k/uL (0-1.0); Monocytes % (A) 6 %; Neutrophils # (A) 8.9 k/uL (1.3-7.7); Neutrophils % (A) 72 %; Platelet Count 440 k/uL (150-450); Poikilocytosis Slight; RBC 3.21 m/uL (4.30-5.90); RDW 16.7 % (11.5-15.5); WBC 12.4 k/uL (3.8-10.6)
[2020-06-02] MEDS ORDERED: APIXABAN 5 MG TAB PO SCH (09:00)
[2020-06-02] MEDS ORDERED: POTASSIUM CHLORIDE ER 10 MEQ TAB.ER.PRT PO SCH (09:00)
[2020-06-02] MEDS: INSULIN ASPART (NovoLOG) 100 UNIT/ML VIAL SQ SCH ×4 (09:08→20:59)
[2020-06-02] MEDS: ASCORBIC ACID 500 MG TAB PO SCH (09:15)
[2020-06-02] MEDS: bisacodyL 5 MG TABLET.DR PO SCH (09:15)
[2020-06-02] MEDS: ASPIRIN 81 MG PO SCH (09:15)
[2020-06-02] MEDS: SPIRONOLACTONE 25 MG TAB PO SCH (09:16)
[2020-06-02] MEDS: APIXABAN 5 MG TAB PO SCH ×2 (09:16→21:18)
[2020-06-02] MEDS: MULTIVITAMINS, THERA 1 EACH TAB PO SCH (09:16)
[2020-06-02] MEDS: BUMETANIDE 1 MG TAB PO SCH (09:16)
[2020-06-02] MEDS: carvediloL 3.125 MG TAB PO SCH ×2 (09:16→17:56)
[2020-06-02] MEDS: SODIUM CHLORIDE 0.9% 1,000 ML IV SCH ×2 (09:21→18:14)
[2020-06-02 11:33] LABS: African American GFR (CKD) 119.7 (60.0-200.0); Anion Gap 6.8 mmol/L (4.00-12.00); Calcium 7.8 mg/dL (8.7-10.3); Carbon Dioxide 24.2 mmol/L (21.6-31.8); Magnesium 1.9 mg/dL (1.5-2.4); Non-African American GFR(CKD) 103.3 (60.0-200.0); Potassium 2.8 mmol/L (3.5-5.5)
[2020-06-02 11:45] LABS: Glucose,Whole Blood 97 mg/dL (75-99)
[2020-06-02] MEDS: SODIUM HYPOCHLORITE 0.25% 480 ML BOT MISCELLANE SCH (13:03)
[2020-06-02 17:05] LABS: Glucose,Whole Blood 94 mg/dL (75-99)
--- NOTE | 2020-06-02 18:22 | PN ---
PROGRESS NOTE DATE OF SERVICE: 06/02/2020. REASON FOR FOLLOW UP: Sacral pressure ulcer and a question of osteomyelitis. INTERVAL COURSE: The patient is currently afebrile. He continues to be complaining of pain to his sacral wound area. At this time, the patient has been refusing his testing including a bone scan. Denies any chest pain or cough. No vomiting or diarrhea reported. PHYSICAL EXAMINATION: Blood pressure 103/64 with a pulse of 61, temperature 97.6. He is 99% on room air. General description: The patient is a middle-aged male lying in bed in no distress. Respiratory system: Unlabored breathing, clear to auscultation anteriorly. Heart S1, S2. Regular rate and rhythm. ABDOMEN: Soft, no tenderness. Examination of sacral wound area significantly large wound. Bone was not palpable. There was some bleeding. No significant slough tissue. LABS: The patient did have elevated CRP of 183 down to 48 with a sedimentation rate of 106, no culture has been done on this admission. DIAGNOSTIC IMPRESSION AND PLAN: Patient with chronic nonhealing wound to the sacral area, stage IV with concern for possible secondary infection. The patient recently did have debridement done at [facility] with no exposure of the bone and he did have some cultures obtained from the tissue at the time of surgical debridement. However, those were disregarded by the Infectious Disease physician there and the patient was discharged to the assisted without any antibiotic. At this time, the patient is afebrile. Did have mild elevated white count and elevated markers which highly suggest obtaining a bone scan to make sure no evidence of any sacral osteo, which if negative, no further antibiotic will be needed. Local care with wound VAC. Continue supportive care. MMODL / IJN: [id number] /
[2020-06-02] MEDS ORDERED: MENTHOL (NICE) LOZENGE MUCOUS MEM PRN (18:49)
[2020-06-02 20:05] LABS: Glucose,Whole Blood 104 mg/dL (75-99)
--- NOTE | 2020-06-02 20:08 | PN ---
PROGRESS NOTE DATE OF SERVICE: 06/02/2020 This 59-year-old gentleman who was admitted with significant pain also had significant pressure ulcers. Patient also has severe hypokalemia. The patient also had history of bilateral DVT. The most recent cultures are negative but previously the patient had multiple positive cultures. The patient also has severe hypokalemia. Past medical history reviewed. REVIEW OF SYSTEMS: Cardiovascular system: No angina or palpitations. RESPIRATORY: As mentioned earlier. GI: As mentioned earlier. : No dysuria. NERVOUS SYSTEM: No numbness or weakness. CURRENT MEDICATIONS: Reviewed and include: Tylenol, Vernon, Eliquis, vitamin C, aspirin, Cepacol, Dulcolax, Bumex. Coreg, Cefepime, Klonopin, Dilaudid, melatonin, multivitamins, Narcan. Protonix, K-Dur and Aldactone. PHYSICAL EXAMINATION: Patient is alert, oriented x3. Pulse 61. Blood pressure 103/64, respiration 18, temperature 97.6, pulse ox 98% on room air. HEENT: Conjunctivae normal. NECK: No JVD. CARDIOVASCULAR: S1, S2 muffled. RESPIRATORY: Breath sounds diminished in the bases. A few scattered rhonchi and crackles. ABDOMEN: Soft, nontender. LEGS: No edema. NERVOUS SYSTEM: Diffusely weak. Decubitus ulcer present. LAB STUDIES: WBC 12.5, hemoglobin 9.7, sodium 143, potassium 2.8. ASSESSMENT: 1. Stage IV decubitus ulcer with recent diverting colostomy. 2. Pain in the lower back secondary to pressure ulcer. 3. Severe hypokalemia. 4. Bilateral lower extremity deep vein thrombosis, on Eliquis. 5. Noncompliance to the treatment, refused investigations. 6. Hypertension. 7. Diabetes mellitus type 2. 8. Benign prostatic hypertrophy. 9. History of sleep apnea. 10.History of lymphedema. 11.History of chronic kidney stage 3. 12.History of chronic anemia. 13.History of coronary artery disease, stent placement. 14.Morbid obesity, BMI of 57. 15.History of asthma, chronic obstructive pulmonary disease. 16.History of congestive heart failure, ejection fraction unknown. 17.History of polymicrobial organisms including Kirstie albicans. RECOMMENDATIONS AND DISCUSSION: Recommend to continue current medication, continue to monitor. Symptomatic treatment. Otherwise, continue with the pain management. Infectious disease evaluation. I would also recommend cultures at this time, repeat labs. Closely follow with Infectious Disease. Supplement potassium. Increase the dose of potassium. Guarded prognosis. Further recommendations to follow. MMODL / IJN: [id number] / [facility]
[2020-06-02] MEDS: MELATONIN 5 MG TABLET PO SCH (21:04)
[2020-06-02] MEDS: POTASSIUM CHLORIDE ER 20 MEQ TAB.ER PO SCH ×3 (21:04→21:06)
[2020-06-02] MEDS: TOPIRAMATE 100 MG TAB PO SCH (21:04)
[2020-06-03] MEDS: HYDROcodone/APAP 10-325MG 1 EACH TAB PO PRN ×4 (03:36→21:31)
[2020-06-03 06:02] LABS: Anisocytosis Slight; Basophils % (A) 0 %; Eosinophils # (A) 0.5 k/uL (0-0.7); Eosinophils % (A) 5 %; HCT 28.5 % (39.0-53.0); Hypochromasia Moderate; Lymphocytes # (A) 1.6 k/uL (1.0-4.8); Lymphocytes % (A) 13 %; MCH 29.7 pg (25.0-35.0); MCHC 31.6 g/dL (31.0-37.0); MCV 93.9 fL (80.0-100.0); Mean Platelet Volume 6.7; Monocytes # (A) 0.7 k/uL (0-1.0); Monocytes % (A) 6 %; Neutrophils # (A) 8.7 k/uL (1.3-7.7); Neutrophils % (A) 75 %; Platelet Count 389 k/uL (150-450); Poikilocytosis Slight; RBC 3.03 m/uL (4.30-5.90); RDW 16.8 % (11.5-15.5); WBC 11.6 k/uL (3.8-10.6)
[2020-06-03] MEDS: SODIUM CHLORIDE 0.9% 1,000 ML IV SCH (06:06)
[2020-06-03] MEDS: PANTOPRAZOLE 40 MG TABLET PO SCH (06:06)
[2020-06-03 06:21] LABS: African American GFR (CKD) >90 (>60 ml/min/1.73 sqM); Anion Gap 2 mmol/L; Blood Urea Nitrogen 7 mg/dL (9-20); Calcium 7.8 mg/dL (8.4-10.2); Carbon Dioxide 26 mmol/L (22-30); Chloride 111 mmol/L (98-107); Glucose 91 mg/dL (74-99); Non-African American GFR(CKD) >90 (>60 ml/min/1.73 sqM); Sodium 139 mmol/L (137-145)
[2020-06-03 06:26] LABS: Vancomycin,Random 13.9 ug/mL
[2020-06-03 06:36] LABS: Potassium 2.6 mmol/L (3.5-5.1)
[2020-06-03] MEDS ORDERED: Potassium Replacement Protocol 1 EACH MISC MISCELLANE PRN (06:59)
[2020-06-03 07:23] LABS: Glucose,Whole Blood 83 mg/dL (75-99)
[2020-06-03] MEDS: INSULIN ASPART (NovoLOG) 100 UNIT/ML VIAL SQ SCH ×4 (08:14→21:32)
[2020-06-03] MEDS: ASCORBIC ACID 500 MG TAB PO SCH (08:19)
[2020-06-03] MEDS: bisacodyL 5 MG TABLET.DR PO SCH (08:19)
[2020-06-03] MEDS: POTASSIUM BICARBONATE/CIT AC 20 MEQ TABLET.EFF NG-TUBE SCH ×4 (08:19→12:35)
[2020-06-03] MEDS: BUMETANIDE 1 MG TAB PO SCH (08:19)
[2020-06-03] MEDS: ASPIRIN 81 MG PO SCH (08:19)
[2020-06-03] MEDS: SPIRONOLACTONE 25 MG TAB PO SCH (08:19)
[2020-06-03] MEDS: MULTIVITAMINS, THERA 1 EACH TAB PO SCH (08:19)
[2020-06-03] MEDS: APIXABAN 5 MG TAB PO SCH ×2 (08:19→20:43)
[2020-06-03] MEDS: carvediloL 3.125 MG TAB PO SCH ×2 (08:19→17:34)
[2020-06-03] MEDS: POTASSIUM CHLORIDE ER 10 MEQ TAB.ER.PRT PO SCH (08:20)
[2020-06-03] MEDS: SODIUM HYPOCHLORITE 0.25% 480 ML BOT MISCELLANE SCH (10:15)
[2020-06-03] MEDS: HYDROmorphone 0.5 MG/0.5 ML SYRINGE IVP PRN ×2 (10:26→18:07)
[2020-06-03] MEDS: POTASSIUM CHLORIDE 10 MEQ in WATER FOR INJECTION 1 100ML.BAG IVPB SCH ×2 (11:06→12:34)
[2020-06-03 11:51] LABS: Glucose,Whole Blood 90 mg/dL (75-99)
[2020-06-03] MEDS: POTASSIUM CHLORIDE ER 20 MEQ TAB.ER PO SCH ×7 (12:42→23:34)
[2020-06-03] MEDS: CEFEPIME 2 GM in SODIUM CHLORIDE 0.9% 100 ML IVPB SCH (12:42)
[2020-06-03 17:10] LABS: Glucose,Whole Blood 88 mg/dL (75-99)
[2020-06-03] MEDS: VANCOMYCIN 2,500 MG in SODIUM CHLORIDE 0.9% 500 ML 500 ML IVPB SCH (17:34)
[2020-06-03] MEDS: MELATONIN 5 MG TABLET PO SCH (20:43)
[2020-06-03] MEDS: TOPIRAMATE 100 MG TAB PO SCH (20:43)
[2020-06-03 20:44] LABS: Glucose,Whole Blood 96 mg/dL (75-99)
[2020-06-03] MEDS: KETOCONAZOLE 2% SHAMPOO 1 APPLIC/ML TOPICAL SCH (20:45)
[2020-06-03 23:28] LABS: Magnesium 1.9 mg/dL (1.6-2.3); Potassium 2.8 mmol/L (3.5-5.1)
--- NOTE | 2020-06-04 00:34 | PN ---
PROGRESS NOTE DATE OF SERVICE: 06/03/2020 This 59-year-old gentleman who was admitted with stage IV decubitus ulcer had a recent diverting colostomy. The patient also had pain in the lower back, also. The patient is rather noncompliant with treatment refusing several investigations and medications also. Patient is being closely monitored. Psychiatry has also seen the patient. PAST MEDICAL HISTORY: Reviewed. REVIEW OF SYSTEMS: CARDIOVASCULAR SYSTEM: No angina. RESPIRATORY SYSTEM: As mentioned earlier. GI: As mentioned earlier. : No dysuria. NERVOUS SYSTEM: No numbness or weakness. CURRENT MEDICATIONS: Current medications are reviewed and include: Tylenol, [place] 10 mg, Eliquis, vitamin C, aspirin, Cepacol, Bumex, Coreg, Klonopin, Dilaudid, Nizoral, milk of magnesia, melatonin, replacement protocol, Narcan, Protonix. PHYSICAL EXAMINATION: Patient is alert and oriented times x2. Pulse 82, blood pressure 104/62, respirations 17, temperature 97.5, pulse ox 95% on room air. HEENT: Conjunctivae normal. Oral mucosa moist. NECK: No jugular venous distention. No carotid bruit. No lymph node enlargement. CARDIOVASCULAR: S1, S2 muffled. RESPIRATORY: Breath sounds diminished at the bases. A few scattered rhonchi and crackles. ABDOMEN: Soft, nontender. LEGS: No edema, no swelling. NERVOUS SYSTEM: Diffusely weak. LABS: WBC 11.6, hemoglobin is 9. Potassium 2.6. Sodium 139. ASSESSMENT: 1. Stage IV decubitus ulcer with recent diverting colostomy. 2. Pain in the lower back secondary to pressure ulcer. 3. Severe hypokalemia. 4. Bilateral lower extremity deep venous thrombosis, on Eliquis. 5. Noncompliance to the treatment and refusing investigations. 6. Hypertension. 7. Diabetes mellitus type 2. 8. Benign prostatic hypertrophy. 9. History of sleep apnea. 10.History of lymphedema. 11.History of chronic kidney disease stage 3. 12.History of chronic anemia. 13.Coronary artery disease, stent placement. 14.History of obesity, body mass index 57. 15.History of asthma, chronic obstructive pulmonary disease. 16.History of congestive heart failure, ejection fraction unknown. 17.History of polymicrobial organisms including Kirstie albicans previously. 18.FULL CODE. RECOMMENDATIONS AND DISCUSSION: This 59-year-old gentleman who presented with multiple complex medical issues. We will monitor the patient closely. Continue the current medications, continue symptomatic treatment. Potassium is 2.6 at this time. We will continue to monitor and potassium magnesium supplements. Prognosis guarded. Further recommendations to follow. MMODL / TROYN: [id number] /
[2020-06-04] MEDS: HYDROmorphone 0.5 MG/0.5 ML SYRINGE IVP PRN ×4 (00:35→21:34)
[2020-06-04] MEDS: HYDROcodone/APAP 10-325MG 1 EACH TAB PO PRN ×3 (04:19→17:37)
--- NOTE | 2020-06-04 06:23 | PN ---
PROGRESS NOTE DATE OF SERVICE: 06/03/2020 REASON FOR FOLLOWUP: Stage IV sacral pressure ulcer, with a question of secondary infection. INTERVAL HISTORY: The patient is currently afebrile, has been breathing comfortably. The patient has been complaining of pain to his sacral wound area and wanted his pain medication to be upped. However, he continued to refuse to go for the bone scan as he is scared of it, but he is unable to tell me why he is scared of it. No chest pain. No cough. No diarrhea. PHYSICAL EXAMINATION: Blood pressure 104/62 with a pulse of 82, temperature 97.5. He is 95% on room air. General description is a middle-aged male lying in bed in no distress. RESPIRATORY SYSTEM: Unlabored breathing, clear to auscultation anteriorly. HEART: S1, S2. Regular rate and rhythm. ABDOMEN: Soft, no tenderness. The sacral wound is currently dressed up. The right leg is currently dressed, no drainage on the dressing. LABS: Creatinine 0.85. DIAGNOSTIC IMPRESSION AND PLAN: Patient with stage IV sacral pressure ulcer in this patient who recently did have debridement done at [facility]. There were cultures done which grew multiple pathogens however those as possible contaminant. Patient is currently covered with vancomycin. We will try to obtain x-ray of the sacral area. Local care to be switched over to wound VAC and will monitor his clinical course closely. YONI / SANDRA: [id number] /
[2020-06-04 07:12] LABS: Glucose,Whole Blood 81 mg/dL (75-99)
[2020-06-04] MEDS: INSULIN ASPART (NovoLOG) 100 UNIT/ML VIAL SQ SCH ×4 (07:30→21:05)
[2020-06-04] MEDS: carvediloL 3.125 MG TAB PO SCH ×2 (07:38→17:37)
[2020-06-04] MEDS: BUMETANIDE 1 MG TAB PO SCH (07:38)
[2020-06-04] MEDS: POTASSIUM CHLORIDE ER 10 MEQ TAB.ER.PRT PO SCH (07:39)
[2020-06-04] MEDS: SPIRONOLACTONE 25 MG TAB PO SCH (07:39)
[2020-06-04] MEDS: MULTIVITAMINS, THERA 1 EACH TAB PO SCH (07:39)
[2020-06-04] MEDS: ASPIRIN 81 MG PO SCH (07:39)
[2020-06-04] MEDS: bisacodyL 5 MG TABLET.DR PO SCH (07:39)
[2020-06-04] MEDS: APIXABAN 5 MG TAB PO SCH ×2 (07:40→20:24)
[2020-06-04] MEDS: SODIUM HYPOCHLORITE 0.25% 480 ML BOT MISCELLANE SCH (07:40)
[2020-06-04] MEDS: PANTOPRAZOLE 40 MG TABLET PO SCH (07:40)
[2020-06-04] MEDS: ASCORBIC ACID 500 MG TAB PO SCH (07:41)
[2020-06-04 11:01] LABS: African American GFR (CKD) 113.3 (60.0-200.0); Albumin 2.3 g/dL (3.80-4.90); Albumin/Globulin Ratio 0.72 (1.60-3.17); Anion Gap 6.2 mmol/L (4.00-12.00); Calcium 7.8 mg/dL (8.7-10.3); Carbon Dioxide 25.8 mmol/L (21.6-31.8); Globulin 3.2 g/dL (1.6-3.3); Magnesium 1.9 mg/dL (1.5-2.4); Non-African American GFR(CKD) 97.8 (60.0-200.0); Total Bilirubin 0.2 mg/dL (0.2-1.2); Total Protein 5.5 g/dL (6.2-8.2)
[2020-06-04 11:52] LABS: Glucose,Whole Blood 100 mg/dL (75-99)
[2020-06-04] MEDS: POTASSIUM CHLORIDE ER 20 MEQ TAB.ER PO SCH (11:53)
[2020-06-04 12:45] LABS: Potassium 2.7 mmol/L (3.5-5.5)
--- NOTE | 2020-06-04 12:52 | P.PN ---
Subjective Progress Note Date: 06/04/20 CHIEF COMPLAINT: Decubitus ulcer HISTORY OF PRESENT ILLNESS: The patient is a 59-year-old male admitted with decubitis ulcer present on admission including multiple medical comorbidities as well as morbid obesity, BMI over 50, diabetes type 2, hypertensive heart disease, bilateral venous stasis disease. Patient is lying in bed comfortably. He is tolerating diet. Denies any nausea or vomiting. He denies any black stools or blood in his stools in the colostomy. He denies any abdominal pain. Afebrile. Potassium 2.7 patient seen by infectious disease and they recommended a wound VAC PHYSICAL EXAM: VITAL SIGNS: Reviewed. GENERAL: Well-developed in no acute distress. HEENT: No sclera icterus. Extraocular movements grossly intact. Moist buccal mucosa. Head is atraumatic, normocephalic. ABDOMEN: Soft. Nondistended. Nontender. Colostomy bag in place with stool present NEUROLOGIC: Alert and oriented. Cranial nerves II through XII grossly intact. Skin: Large stage IV decubitus ulcer ASSESSMENT: 1. Stage IV Decubitus ulcer 2. Morbid obesity due to excess calories, BMI 57.1 3. Leukocytosis Resolved 4. Bilateral lower extremity DVT on Eliquis 5. Normocytic Anemia likely multifactorial with chronic inflammation, Iron deficiency, malnutrition And chronic decubitus ulcer 6. Hypokalemia PLAN: -Continue IV antibiotics per ID -Continue regular heart healthy diet -No surgical intervention planned -Patient refuses to have EGD and colonoscopy for further anemia workup -Replace potassium per protocol Physician Resource Management Specialist note has been reviewed by physician. Signing provider agrees with the documented findings, assessment, and plan of care. Objective - Vital Signs Vital signs: Vital Signs Temp 97.9 F 06/04/20 05:00 Pulse 91 06/04/20 05:00 Resp 20 06/04/20 05:00 BP 126/72 06/04/20 05:00 Pulse Ox 97 06/04/20 05:00 Intake & Output 06/03/20 06/04/20 06/04/20 18:59 06:59 18:59 Intake Total 320 Output Total 825 650 500 Balance -825 330 -500 Intake: IV 80 Sodium Chloride 0.9% 1, 80 000 ml @ 20 mls/hr IV . Q24H [facility] Rx#:[id number] Oral 240 Output: Urine 825 650 Uretheral (Rodriguez) 650 Stool 500 Other: Voiding Method Indwelling Catheter Indwelling Catheter Indwelling Catheter - Labs CBC & Chem 7: 06/03/20 05:42 06/04/20 06:00 Labs: Abnormal Lab Results - Last 24 Hours (Table) 06/03/20 06/04/20 06/04/20 Range/Units 22:40 06:00 11:50 Potassium 2.8 L 2.7 L* (3.5-5.1) mmol/L BUN 8.0 L (9.0-27.0) mg/dL BUN/Creatinine Ratio 10.00 L (12.00-20.00) Ratio POC Glucose (mg/dL) 100 H (75-99) mg/dL Calcium 7.8 L (8.7-10.3) mg/dL Total Protein 5.5 L (6.2-8.2) g/dL Albumin 2.30 L (3.80-4.90) g/dL Albumin/Globulin Ratio 0.72 L (1.60-3.17) g/dL
[2020-06-04] MEDS ORDERED: POTASSIUM CHLORIDE ER 20 MEQ TAB.ER PO ONE ×2 (15:00→17:30)
--- NOTE | 2020-06-04 17:01 | PN ---
PROGRESS NOTE DATE OF SERVICE: 06/04/2020 This 59-year-old gentleman who was admitted with significant decubitus ulcers is also refusing multiple treatments. The patient was recently in [facility] for debridement. The cultures done here are not available at this time. Previously the patient had multiple organisms grown from the culture. The patient is also complaining of severe pain. Past medical history reviewed. The patient is severely hypokalemic. REVIEW OF SYSTEMS: CARDIOVASCULAR SYSTEM: No angina, palpitations. RESPIRATORY SYSTEM: As mentioned earlier. GI: As mentioned earlier. : No dysuria or retention. NERVOUS SYSTEM: No numbness, weakness. MEDICATIONS: Current medications are reviewed and include Tylenol, [place], Eliquis, vitamin C, aspirin, dulcolax, Bumex, Coreg, Dilaudid, Nizoral. Doses are reviewed. PHYSICAL EXAMINATION: Patient is alert, oriented x2. Pulse 81, blood pressure 120/61, respiration 18, temperature 98.3, pulse ox 94% on room air. HEENT: Conjunctivae normal. NECK: No jugular venous distention. CARDIOVASCULAR SYSTEM: S1, S2 muffled. RESPIRATORY SYSTEM: Breath sounds diminished at the bases. A few scattered rhonchi. ABDOMEN: Soft, obese. LEGS: No edema. No swelling. NERVOUS SYSTEM: Diffusely weak. LABS: Sodium 141, potassium 2.7. Other labs are noted. ASSESSMENT: 1. Stage IV decubitus ulcer with recent diverting colostomy elsewhere. 2. Recent debridement at [facility]. 3. Pain in the lower back secondary to pressure ulcer. 4. Severe hypokalemia. 5. Bilateral lower extremity deep venous thrombosis, on Eliquis. 6. Noncompliance to the treatment and refusing investigations. 7. Hypertension. 8. Diabetes mellitus, type 2. 9. Benign prostatic hypertrophy. 10.History of sleep apnea. 11.History of lymphedema. 12.History of chronic kidney disease, stage 3. 13.History of chronic anemia. 14.Coronary artery disease and stent placement. 15.History of obesity. Body mass index of 57. 16.History of asthma, chronic obstructive pulmonary disease. 17.History of congestive heart failure; ejection fraction unknown. 18.History of polymicrobial organisms, including Kirstie albicans previously. 19.FULL CODE. RECOMMENDATIONS AND DISCUSSION: I recommend to continue current medications, continue with the monitoring, symptomatic treatment. I recommend replacing potassium and magnesium aggressively; however, the patient is refusing p.o. potassium. The staff is working intensively along with the patient to increase compliance, but the prognosis remains extremely guarded because of the multiple complex medical issues and issue with compliance. The patient is able to make decisions per Psychiatry. Will continue to monitor along with social media marketing specialist regarding obtaining a legal guardian for better utilization of resources. Prognosis is guarded because of multiple complex medical issues. Further recommendations to follow. See orders for details. Discussed with staff and Case Management at length. MMODL / IJN: [id number] /
[2020-06-04 17:08] LABS: Glucose,Whole Blood 97 mg/dL (75-99)
[2020-06-04] MEDS: SODIUM CHLORIDE 0.9% 1,000 ML IV SCH (17:39)
[2020-06-04] MEDS ORDERED: POTASSIUM CHLORIDE ER 10 MEQ TAB.ER.PRT PO ONE (19:30)
[2020-06-04] MEDS: TOPIRAMATE 100 MG TAB PO SCH (20:24)
[2020-06-04] MEDS: MELATONIN 5 MG TABLET PO SCH (20:24)
[2020-06-04 20:38] LABS: Glucose,Whole Blood 101 mg/dL (75-99)
[2020-06-05] MEDS: VANCOMYCIN 2,500 MG in SODIUM CHLORIDE 0.9% 500 ML 500 ML IVPB SCH (00:39)
[2020-06-05] MEDS: HYDROcodone/APAP 10-325MG 1 EACH TAB PO PRN ×4 (00:39→22:41)
[2020-06-05] MEDS: HYDROmorphone 0.5 MG/0.5 ML SYRINGE IVP PRN ×3 (03:36→19:29)
--- NOTE | 2020-06-05 05:06 | PN ---
PROGRESS NOTE DATE OF SERVICE: 06/04/2020 REASON FOR FOLLOWUP: Sacral pressure ulcer. INTERVAL HISTORY: The patient is currently afebrile. The patient is breathing comfortably. The patient continues to be refusing local wound care with wound VAC and he refused the x-rays of the sacral area. The patient did not have any reasonable explanation for why he is refusing all his care. He is more interested in getting more pain medication and when he came go back to his [facility]. PHYSICAL EXAMINATION: Blood pressure 116/66, pulse of 87, temperature 98.2. He is 95% on room air. General description is a middle-aged male lying in bed in no distress. RESPIRATORY SYSTEM: Unlabored breathing, clear to auscultation anteriorly. HEART: S1, S2. Regular rate and rhythm. ABDOMEN: Soft, no tenderness. LABS: Potassium was 2.7. No culture this admission. DIAGNOSTIC IMPRESSION AND PLAN: Patient with sacral pressure ulcer that was recently debrided at [facility]. Tissue culture did grow multiple pathogens was just regarded as possible contaminant and there was no evidence of any extension down to the bone. The patient has refused bone scan, simple x-rays and local wound care. Recommend no antibiotic on discharge in view of noncompliance with medical care. He can be discharged back to the [facility]. MMODL / IJN: [id number] /
[2020-06-05 05:42] LABS: Anisocytosis Slight; Basophils % (A) 0 %; Eosinophils # (A) 0.5 k/uL (0-0.7); Eosinophils % (A) 4 %; HGB 9.1 gm/dL (13.0-17.5); Hypochromasia Moderate; Lymphocytes # (A) 1.7 k/uL (1.0-4.8); Lymphocytes % (A) 15 %; MCH 29.9 pg (25.0-35.0); MCHC 32.3 g/dL (31.0-37.0); MCV 92.5 fL (80.0-100.0); Monocytes # (A) 0.8 k/uL (0-1.0); Monocytes % (A) 7 %; Neutrophils # (A) 8.2 k/uL (1.3-7.7); Neutrophils % (A) 72 %; Platelet Count 337 k/uL (150-450); Poikilocytosis Moderate; RBC 3.03 m/uL (4.30-5.90); RDW 17.1 % (11.5-15.5); WBC 11.4 k/uL (3.8-10.6)
[2020-06-05] MEDS: PANTOPRAZOLE 40 MG TABLET PO SCH (06:09)
[2020-06-05 07:01] LABS: Glucose,Whole Blood 90 mg/dL (75-99)
[2020-06-05] MEDS: INSULIN ASPART (NovoLOG) 100 UNIT/ML VIAL SQ SCH ×4 (07:46→20:40)
[2020-06-05] MEDS: SPIRONOLACTONE 25 MG TAB PO SCH (08:54)
[2020-06-05] MEDS: ASCORBIC ACID 500 MG TAB PO SCH (08:54)
[2020-06-05] MEDS: MULTIVITAMINS, THERA 1 EACH TAB PO SCH (08:54)
[2020-06-05] MEDS: bisacodyL 5 MG TABLET.DR PO SCH (08:54)
[2020-06-05] MEDS: POTASSIUM CHLORIDE ER 10 MEQ TAB.ER.PRT PO SCH (08:54)
[2020-06-05] MEDS: ASPIRIN 81 MG PO SCH (08:54)
[2020-06-05] MEDS: carvediloL 3.125 MG TAB PO SCH ×2 (08:54→16:31)
[2020-06-05] MEDS: BUMETANIDE 1 MG TAB PO SCH (08:55)
[2020-06-05] MEDS: APIXABAN 5 MG TAB PO SCH ×2 (08:55→20:37)
[2020-06-05] MEDS: SODIUM HYPOCHLORITE 0.25% 480 ML BOT MISCELLANE SCH (08:56)
[2020-06-05 09:33] LABS: Anion Gap 7.6 mmol/L (4.00-12.00); BUN/Creat Ratio 7.78 Ratio (12.00-20.00); Calcium 7.6 mg/dL (8.7-10.3); Carbon Dioxide 27.4 mmol/L (21.6-31.8); Magnesium 1.7 mg/dL (1.5-2.4); Non-African American GFR(CKD) 93.2 (60.0-200.0); Potassium 2.8 mmol/L (3.5-5.5)
[2020-06-05 11:25] LABS: Glucose,Whole Blood 111 mg/dL (75-99)
[2020-06-05] MEDS: SODIUM CHLORIDE 0.9% 1,000 ML IV SCH (13:06)
--- NOTE | 2020-06-05 14:31 | P.PN ---
Subjective Progress Note Date: 06/05/20 CHIEF COMPLAINT: Decubitus ulcer HISTORY OF PRESENT ILLNESS: The patient is a 59-year-old male admitted with decubitis ulcer present on admission including multiple medical comorbidities as well as morbid obesity, BMI over 50, diabetes type 2, hypertensive heart disease, bilateral venous stasis disease. Patient is lying in bed comfortably. He is tolerating diet. Denies any nausea or vomiting. He denies any black stools or blood in his stools in the colostomy. He denies any abdominal pain. Afebrile. patient seen by infectious disease and they recommended a wound VAC. Patient refused wound VAC PHYSICAL EXAM: VITAL SIGNS: Reviewed. GENERAL: Well-developed in no acute distress. HEENT: No sclera icterus. Extraocular movements grossly intact. Moist buccal mucosa. Head is atraumatic, normocephalic. ABDOMEN: Soft. Nondistended. Nontender. Colostomy bag in place with stool present NEUROLOGIC: Alert and oriented. Cranial nerves II through XII grossly intact. Skin: Large stage IV decubitus ulcer ASSESSMENT: 1. Stage IV Decubitus ulcer 2. Morbid obesity due to excess calories, BMI 57.1 3. Leukocytosis Resolved 4. Bilateral lower extremity DVT on Eliquis 5. Normocytic Anemia likely multifactorial with chronic inflammation, Iron deficiency, malnutrition And chronic decubitus ulcer 6. Hypokalemia PLAN: -Continue IV antibiotics per ID -Continue regular heart healthy diet -No surgical intervention planned -Patient refuses to have EGD and colonoscopy for further anemia workup Physician Electric Motor Tester note has been reviewed by physician. Signing provider agrees with the documented findings, assessment, and plan of care. Objective - Vital Signs Vital signs: Vital Signs Temp 98.4 F 06/05/20 13:00 Pulse 89 06/05/20 13:00 Resp 20 06/05/20 13:00 BP 103/61 06/05/20 13:00 Pulse Ox 96 06/05/20 13:00 Intake & Output 06/04/20 06/05/20 06/05/20 18:59 06:59 18:59 Intake Total 950 680 Output Total 1950 Balance -1000 680 Intake: Oral 950 680 Output: Urine 1450 Stool 500 Other: Voiding Method Indwelling Catheter Indwelling Catheter Indwelling Catheter - Labs CBC & Chem 7: 06/05/20 05:21 06/05/20 05:21 Labs: Abnormal Lab Results - Last 24 Hours (Table) 06/04/20 06/04/20 06/05/20 Range/Units 15:31 20:37 05:21 WBC 11.4 H (3.8-10.6) k/uL RBC 3.03 L (4.30-5.90) m/uL Hgb 9.1 L (13.0-17.5) gm/dL Hct 28.0 L (39.0-53.0) % RDW 17.1 H (11.5-15.5) % Neutrophils # 8.2 H (1.3-7.7) k/uL Potassium 2.7 L* (3.5-5.1) mmol/L BUN (9.0-27.0) mg/dL BUN/Creatinine Ratio (12.00-20.00) Ratio POC Glucose (mg/dL) 101 H (75-99) mg/dL Calcium (8.7-10.3) mg/dL 06/05/20 06/05/20 Range/Units 05:21 11:12 WBC (3.8-10.6) k/uL RBC (4.30-5.90) m/uL Hgb (13.0-17.5) gm/dL Hct (39.0-53.0) % RDW (11.5-15.5) % Neutrophils # (1.3-7.7) k/uL Potassium 2.8 L (3.5-5.1) mmol/L BUN 7.0 L (9.0-27.0) mg/dL BUN/Creatinine Ratio 7.78 L (12.00-20.00) Ratio POC Glucose (mg/dL) 111 H (75-99) mg/dL Calcium 7.6 L (8.7-10.3) mg/dL
--- NOTE | 2020-06-05 16:04 | PN ---
PROGRESS NOTE DATE OF SERVICE: 06/05/2020 This 59-year-old gentleman who was admitted with stage IV decubitus ulcer is complaining of severe pain. Patient had recent debridements at . The patient is refusing multiple evaluations and medication administration even lab test. The potassium is still low at 2.8 at this time. The calcium is 7.6. Past medical history reviewed. REVIEW OF SYSTEMS: CARDIOVASCULAR SYSTEM: No angina, palpitations. RESPIRATORY SYSTEM: As mentioned earlier. GI: As mentioned earlier. : No dysuria or retention. NERVOUS SYSTEM: No numbness, weakness. CURRENT MEDICATIONS: Reviewed. They include: Tylenol p.r.n., [place] 10 mg, Eliquis 5 mg, vitamin C, Cepacol, Bumex, Coreg, Klonopin, Nizoral. PHYSICAL EXAMINATION: Patient is alert, oriented x 3. Pulse 89, blood pressure 103/60, respiration 20, temperature 98.4, pulse ox 96% on room air. HEENT: Conjunctivae normal. NECK: No jugular venous distention. CARDIOVASCULAR SYSTEM: S1, S2 muffled. RESPIRATORY SYSTEM: Breath sounds diminished at the bases. A few scattered rhonchi and crackles. ABDOMEN: Soft, obese. LEGS: No edema. No swelling. NERVOUS SYSTEM: Diffusely weak. Sacral decubitus present. LABS: WBC 11.2, hemoglobin 9.1. Sodium 141, potassium 2.8. ASSESSMENT: 1. Stage IV decubitus ulcer with recent diverting colostomy elsewhere. 2. Recent debridement in . 3. Pain in the lower back secondary to pressure ulcer. 4. Severe hypokalemia. 5. Bilateral lower extremity deep venous thromboses, on Eliquis. 6. Noncompliance with treatment and refusinginv. 7. Hypertension. 8. Diabetes mellitus, type 2. 9. Benign prostatic hypertrophy. 10.History of sleep apnea. 11.History of lymphedema. 12.History of chronic kidney disease, stage 3. 13.History of chronic anemia. 14.Coronary artery disease and stent placement. 15.History of obesity with body mass index of 57. 16.History of asthma, chronic obstructive pulmonary disease. 17.History of congestive heart failure, ejection fraction unknown. 18.History of polymicrobial organisms, including Kirstie albicans grown from the cultures recently. 19.FULL CODE. RECOMMENDATIONS AND DISCUSSION: I recommend to continue current medications, continue with the monitoring, symptomatic treatment. I recommend to give at least 200 mEq of potassium; potassium is 2.8. Will check the magnesium as well and follow the protocol. The prognosis is extremely guarded because of the patient's lack of cooperation and significant noncompliance. The staff had multiple discussions with him, and still he is not willing to fully comply with medical treatment. Because of that reason, prognosis remains extremely guarded. We will continue to monitor. Once the potassium is stabilized, Infectious Disease is recommending outpatient antibiotics. The patient could be discharged back to the assisted. Otherwise, the prognosis is extremely guarded because of the above- mentioned medical problems. Further recommendations to follow. MMODL / IJN: [id number] / LEENA
--- NOTE | 2020-06-05 16:10 | PN ---
PROGRESS NOTE DATE OF SERVICE: 06/05/2020 REASON FOR FOLLOWUP: Sacral pressure ulcer. INTERVAL HISTORY: The patient is currently afebrile. He is breathing comfortably. No chest pain or cough. No abdominal pain. Pain to the sacral area but no worsening. No vomiting. No diarrhea. He has been refusing wound V.A.C. and local care to the sacral wound area. PHYSICAL EXAMINATION: Blood pressure 103/61 with a pulse of 89, temperature 98.4. He is 96% on room air. General description is a middle-aged male lying in bed in no distress. RESPIRATORY SYSTEM: Unlabored breathing. Clear to auscultation anteriorly. HEART: S1, S2. Regular rate and rhythm. ABDOMEN: Soft. No tenderness. LABS: Hemoglobin 9.1, white count 11.4, BUN of 7, creatinine 0.9. DIAGNOSTIC IMPRESSION AND PLAN: Patient with a sacral pressure ulcer. This patient unfortunately has been refusing any investigation to rule out osteomyelitis as well as local wound care with wound V.A.C., which would be the best therapy for him. In view of the patient's refusal of all therapy, he may be discharged to the long-term; not recommending any antibiotic, as we do not have the depth of infection or the bacteriological data. MMODL / IJN: [id number] /
[2020-06-05 17:47] LABS: Glucose,Whole Blood 98 mg/dL (75-99)
[2020-06-05] MEDS ORDERED: Potassium Replacement Protocol 1 EACH MISC MISCELLANE PRN (19:10)
[2020-06-05] MEDS: POTASSIUM CHLORIDE ER 20 MEQ TAB.ER PO SCH ×3 (19:25→21:42)
[2020-06-05] MEDS: MELATONIN 5 MG TABLET PO SCH (20:37)
[2020-06-05] MEDS: TOPIRAMATE 100 MG TAB PO SCH (20:37)
[2020-06-05 20:57] LABS: Glucose,Whole Blood 108 mg/dL (75-99)
[2020-06-06] MEDS: HYDROmorphone 0.5 MG/0.5 ML SYRINGE IVP PRN ×4 (03:57→23:47)
[2020-06-06 05:58] LABS: Anisocytosis Slight; Basophils # (A) 0.1 k/uL (0-0.2); Basophils % (A) 0 %; Eosinophils # (A) 0.4 k/uL (0-0.7); Eosinophils % (A) 4 %; HGB 8.9 gm/dL (13.0-17.5); Hypochromasia Slight; Lymphocytes # (A) 2.1 k/uL (1.0-4.8); Lymphocytes % (A) 18 %; MCH 29.3 pg (25.0-35.0); MCHC 31.7 g/dL (31.0-37.0); MCV 92.4 fL (80.0-100.0); Mean Platelet Volume 7.6; Monocytes # (A) 0.8 k/uL (0-1.0); Monocytes % (A) 7 %; Neutrophils # (A) 7.9 k/uL (1.3-7.7); Neutrophils % (A) 69 %; Platelet Count 345 k/uL (150-450); Poikilocytosis Moderate; RBC 3.04 m/uL (4.30-5.90); RDW 16.9 % (11.5-15.5); WBC 11.4 k/uL (3.8-10.6)
[2020-06-06] MEDS: PANTOPRAZOLE 40 MG TABLET PO SCH (06:20)
[2020-06-06 07:19] LABS: Glucose,Whole Blood 83 mg/dL (75-99)
[2020-06-06] MEDS: INSULIN ASPART (NovoLOG) 100 UNIT/ML VIAL SQ SCH ×4 (07:33→22:01)
[2020-06-06] MEDS: ASPIRIN 81 MG PO SCH (07:51)
[2020-06-06] MEDS: ASCORBIC ACID 500 MG TAB PO SCH (07:51)
[2020-06-06] MEDS: BUMETANIDE 1 MG TAB PO SCH (07:52)
[2020-06-06] MEDS: SPIRONOLACTONE 25 MG TAB PO SCH (07:52)
[2020-06-06] MEDS: bisacodyL 5 MG TABLET.DR PO SCH (07:52)
[2020-06-06] MEDS: MULTIVITAMINS, THERA 1 EACH TAB PO SCH (07:52)
[2020-06-06] MEDS: carvediloL 3.125 MG TAB PO SCH ×2 (07:52→17:27)
[2020-06-06] MEDS: HYDROcodone/APAP 10-325MG 1 EACH TAB PO PRN ×3 (08:12→21:11)
[2020-06-06] MEDS: SODIUM HYPOCHLORITE 0.25% 480 ML BOT MISCELLANE SCH (08:13)
[2020-06-06] MEDS: APIXABAN 5 MG TAB PO SCH ×2 (08:13→22:08)
[2020-06-06] MEDS: POTASSIUM CHLORIDE ER 10 MEQ TAB.ER.PRT PO SCH (08:13)
[2020-06-06 09:30] LABS: African American GFR (CKD) 113.3 (60.0-200.0); Anion Gap 4.7 mmol/L (4.00-12.00); BUN/Creat Ratio 8.75 Ratio (12.00-20.00); Calcium 7.9 mg/dL (8.7-10.3); Carbon Dioxide 29.3 mmol/L (21.6-31.8); Magnesium 1.7 mg/dL (1.5-2.4); Non-African American GFR(CKD) 97.8 (60.0-200.0); Potassium 2.9 mmol/L (3.5-5.5)
[2020-06-06 11:35] LABS: Glucose,Whole Blood 88 mg/dL (75-99)
[2020-06-06] MEDS: POTASSIUM CHLORIDE ER 20 MEQ TAB.ER PO SCH ×4 (11:55→22:09)
[2020-06-06] MEDS ORDERED: VANCOMYCIN TROUGH DUE 1 EACH MISC MISCELLANE ONE (12:00)
--- NOTE | 2020-06-06 13:28 | P.PN ---
Subjective Progress Note Date: 06/06/20 CHIEF COMPLAINT: Decubitus ulcer HISTORY OF PRESENT ILLNESS: The patient is a 59-year-old male admitted with decubitis ulcer present on admission including multiple medical comorbidities as well as morbid obesity, BMI over 50, diabetes type 2, hypertensive heart disease, bilateral venous stasis disease. Patient is lying in bed comfortably. He is tolerating diet. Denies any nausea or vomiting. He denies any black stools or blood in his stools in the colostomy. He denies any abdominal pain. Afebrile. patient seen by infectious disease and they recommended a wound VAC. Patient now reconsidering wound VAC PHYSICAL EXAM: VITAL SIGNS: Reviewed. GENERAL: Well-developed in no acute distress. HEENT: No sclera icterus. Extraocular movements grossly intact. Moist buccal mucosa. Head is atraumatic, normocephalic. ABDOMEN: Soft. Nondistended. Nontender. Colostomy bag in place with stool pre sent NEUROLOGIC: Alert and oriented. Cranial nerves II through XII grossly intact. Skin: Large stage IV decubitus ulcer ASSESSMENT: 1. Stage IV Decubitus ulcer 2. Morbid obesity due to excess calories, BMI 57.1 3. Leukocytosis 4. Bilateral lower extremity DVT on Eliquis 5. Normocytic Anemia likely multifactorial with chronic inflammation, Iron deficiency, malnutrition And chronic decubitus ulcer 6. Hypokalemia. Potassium being replaced PLAN: -Continue IV antibiotics and wound care per ID -Continue regular heart healthy diet -No surgical intervention planned -Patient refuses to have EGD and colonoscopy for further anemia workup Physician Gas Meter Installer note has been reviewed by physician. Signing provider agrees with the documented findings, assessment, and plan of care. Objective - Vital Signs Vital signs: Vital Signs Temp 98.2 F 06/06/20 12:57 Pulse 83 06/06/20 12:57 Resp 18 06/06/20 12:57 BP 108/60 06/06/20 12:57 Pulse Ox 98 06/06/20 12:57 Intake & Output 06/05/20 06/06/20 06/06/20 18:59 06:59 18:59 Intake Total 880 300 Output Total 1400 1500 500 Balance -1400 -620 -200 Intake: Oral 880 300 Output: Urine 1400 1000 500 Uretheral (Rodriguez) 1000 Stool 500 Other: Voiding Method Indwelling Catheter Indwelling Catheter - Labs CBC & Chem 7: 11/11/20 04:43 06/06/20 04:43 Labs: Abnormal Lab Results - Last 24 Hours (Table) 06/05/20 06/06/20 06/06/20 Range/Units 20:38 04:43 04:43 WBC 11.4 H (3.8-10.6) k/uL RBC 3.04 L (4.30-5.90) m/uL Hgb 8.9 L (13.0-17.5) gm/dL Hct 28.0 L (39.0-53.0) % RDW 16.9 H (11.5-15.5) % Neutrophils # 7.9 H (1.3-7.7) k/uL Potassium 2.9 L (3.5-5.5) mmol/L BUN 7.0 L (9.0-27.0) mg/dL BUN/Creatinine Ratio 8.75 L (12.00-20.00) Ratio POC Glucose (mg/dL) 108 H (75-99) mg/dL Calcium 7.9 L (8.7-10.3) mg/dL
[2020-06-06] MEDS: VANCOMYCIN 2,500 MG in SODIUM CHLORIDE 0.9% 500 ML 500 ML IVPB SCH (13:33)
--- NOTE | 2020-06-06 17:11 | PN ---
PROGRESS NOTE DATE OF SERVICE: 06/06/2020 This is a 59-year-old gentleman who was admitted with stage IV decubitus ulcer, also had severe hypokalemia. The patient is planned to be sent to a rehab at this time. The patient has significant history of issues of noncompliance also. PHYSICAL EXAMINATION: Pulse 83, blood pressure 108/60, respiration 18, temperature 98.2, pulse ox 98% on room air. HEENT: Conjunctivae normal. CARDIOVASCULAR: S1, S2, muffled. RESPIRATION: Breath sounds diminished at the bases, scattered rhonchi. ABDOMEN: Soft, nontender. NERVOUS SYSTEM: Unchanged. LABS: WBC 11.2, hemoglobin is 8.9, sodium 140, potassium 2.9, magnesium 1.7. ASSESSMENT: 1. Stage IV decubitus ulcer with recent diverting colostomy ulcer. 2. Recent debridement at [facility]. 3. Severe hypokalemia. 4. Pain in the lower back secondary to pressure ulcer. 5. Bilateral lower extremity DVT prophylaxis on Eliquis. 6. Noncompliance with treatment and refusing investigations. 7. Hypertension. 8. Diabetes mellitus type 2. 9. BPH. 10.History of sleep apnea. 11.History of lymphedema. 12.History of chronic kidney stage 3. 13.History of chronic anemia. 14.CAD, stent placement. 15.History of obesity with body mass index of 57. 16.History of asthma, COPD. 17.History of CHF, ejection fraction unknown. 18.History of polymicrobial organisms including Kirstie albicans grown from the cultures, recently. 19.FULL CODE: RECOMMENDATION: Recommend to continue current medication, continue symptomatic treatment. Otherwise at this time, I would recommend supplement 120 mg of potassium, 2 g of magnesium and then guarded prognosis, further recommendation to the follow. Once the potassium improved, the patient can be sent to rehab. MMODL / IJN: [id number] /
[2020-06-06] MEDS: MAGNESIUM SULFATE-D5W PMX 1 GM in DEXTROSE/WATER 1 100ML.BAG IVPB SCH ×2 (17:14→22:04)
[2020-06-06 17:19] LABS: Glucose,Whole Blood 95 mg/dL (75-99)
[2020-06-06 20:31] LABS: Glucose,Whole Blood 126 mg/dL (75-99)
[2020-06-06] MEDS: SODIUM CHLORIDE 0.9% 1,000 ML IV SCH (22:07)
[2020-06-06] MEDS: MELATONIN 5 MG TABLET PO SCH (22:08)
[2020-06-06] MEDS: TOPIRAMATE 100 MG TAB PO SCH (22:09)
[2020-06-06] MEDS: KETOCONAZOLE 2% SHAMPOO 1 APPLIC/ML TOPICAL SCH (22:20)
--- NOTE | 2020-06-06 22:52 | PN ---
PROGRESS NOTE DATE OF SERVICE: 06/06/2020 REASON FOR FOLLOWUP: Sacral pressure ulcer. INTERVAL HISTORY: The patient is currently afebrile. The patient is breathing comfortably. Denies having any chest pain or shortness of breath or cough. No vomiting. No abdominal pain or worsening pain to the sacral wound area. PHYSICAL EXAMINATION: Blood pressure 122/64 with a pulse of 86, temperature 97.7. He is 99% on room air. General description is a middle-aged male lying in bed in no distress. RESPIRATORY SYSTEM: Unlabored breathing. Clear to auscultation anteriorly. HEART: S1, S2. Regular rate and rhythm. ABDOMEN: Soft. No tenderness. DIAGNOSTIC IMPRESSION AND PLAN: Patient with a sacral pressure ulcer, stage IV, in this patient who unfortunately has been refusing his care. He has refused plain x-rays, bone scan and a wound V.A.C. I had a detailed discussion with the patient again about the importance of the wound V.A.C. in helping to heal his wound. The patient said he will think about it. Local care to continue as ordered and monitor his clinical course closely. MMODL / IJN: [id number] /
[2020-06-07] MEDS: HYDROcodone/APAP 10-325MG 1 EACH TAB PO PRN ×4 (03:27→21:58)
[2020-06-07] MEDS: PANTOPRAZOLE 40 MG TABLET PO SCH (06:08)
[2020-06-07] MEDS: HYDROmorphone 0.5 MG/0.5 ML SYRINGE IVP PRN ×3 (06:09→19:02)
[2020-06-07 07:18] LABS: Glucose,Whole Blood 92 mg/dL (75-99)
[2020-06-07 08:12] LABS: Anisocytosis Slight; Basophils % (A) 0 %; Eosinophils # (A) 0.5 k/uL (0-0.7); Eosinophils % (A) 6 %; HCT 27.6 % (39.0-53.0); HGB 8.6 gm/dL (13.0-17.5); Hypochromasia Moderate; Lymphocytes # (A) 1.8 k/uL (1.0-4.8); Lymphocytes % (A) 19 %; MCH 29.3 pg (25.0-35.0); MCHC 31.3 g/dL (31.0-37.0); MCV 93.5 fL (80.0-100.0); Mean Platelet Volume 7.3; Monocytes # (A) 0.7 k/uL (0-1.0); Monocytes % (A) 7 %; Neutrophils # (A) 6.4 k/uL (1.3-7.7); Neutrophils % (A) 66 %; Platelet Count 373 k/uL (150-450); Poikilocytosis Slight; RBC 2.95 m/uL (4.30-5.90); RDW 17.2 % (11.5-15.5); WBC 9.7 k/uL (3.8-10.6)
[2020-06-07] MEDS: INSULIN ASPART (NovoLOG) 100 UNIT/ML VIAL SQ SCH ×4 (08:15→20:22)
[2020-06-07] MEDS: ASPIRIN 81 MG PO SCH (09:36)
[2020-06-07] MEDS: ASCORBIC ACID 500 MG TAB PO SCH (09:36)
[2020-06-07] MEDS: bisacodyL 5 MG TABLET.DR PO SCH (09:37)
[2020-06-07] MEDS: POTASSIUM CHLORIDE ER 10 MEQ TAB.ER.PRT PO SCH (09:37)
[2020-06-07] MEDS: carvediloL 3.125 MG TAB PO SCH ×2 (09:37→18:12)
[2020-06-07] MEDS: MULTIVITAMINS, THERA 1 EACH TAB PO SCH (09:38)
[2020-06-07] MEDS: SPIRONOLACTONE 25 MG TAB PO SCH (09:38)
[2020-06-07] MEDS: APIXABAN 5 MG TAB PO SCH ×2 (09:38→20:17)
[2020-06-07] MEDS: BUMETANIDE 1 MG TAB PO SCH (09:39)
[2020-06-07] MEDS: SODIUM HYPOCHLORITE 0.25% 480 ML BOT MISCELLANE SCH (09:39)
[2020-06-07 10:54] LABS: Magnesium 2.1 mg/dL (1.6-2.3); Potassium 2.9 mmol/L (3.5-5.1)
[2020-06-07 10:57] LABS: African American GFR (CKD) 127.6 (60.0-200.0); Anion Gap 6.6 mmol/L (4.00-12.00); BUN/Creat Ratio 11.67 Ratio (12.00-20.00); Calcium 7.9 mg/dL (8.7-10.3); Carbon Dioxide 26.4 mmol/L (21.6-31.8); Non-African American GFR(CKD) 110.1 (60.0-200.0); Potassium 2.9 mmol/L (3.5-5.5)
[2020-06-07 11:23] LABS: Glucose,Whole Blood 98 mg/dL (75-99)
--- NOTE | 2020-06-07 11:32 | P.PN ---
Subjective Progress Note Date: 06/07/20 CHIEF COMPLAINT: Decubitus ulcer HISTORY OF PRESENT ILLNESS: The patient is a 59-year-old male admitted with decubitis ulcer present on admission including multiple medical comorbidities as well as morbid obesity, BMI over 50, diabetes type 2, hypertensive heart disease, bilateral venous stasis disease. Patient is lying in bed comfortably. He is tolerating diet. Denies any nausea or vomiting. He denies any black stools or blood in his stools in the colostomy. He denies any abdominal pain. Afebrile. Hemoglobin 8.6. WBC 9.7 patient seen by infectious disease and they recommended a wound VAC. Patient has refused wound VAC again. Patient continues to have hypokalemia and potassium is being replaced. Magnesium 2.1 PHYSICAL EXAM: VITAL SIGNS: Reviewed. GENERAL: Well-developed in no acute distress. HEENT: No sclera icterus. Extraocular movements grossly intact. Moist buccal mucosa. Head is atraumatic, normocephalic. ABDOMEN: Soft. Nondistended. Nontender. Colostomy bag in place with stool present NEUROLOGIC: Alert and oriented. Cranial nerves II through XII grossly intact. Skin: Large stage IV decubitus ulcer ASSESSMENT: 1. Stage IV Decubitus ulcer 2. Morbid obesity due to excess calories, BMI 57.1 3. Leukocytosis 4. Bilateral lower extremity DVT on Eliquis 5. Normocytic Anemia likely multifactorial with chronic inflammation, Iron deficiency, malnutrition And chronic decubitus ulcer 6. Hypokalemia. Potassium being replaced PLAN: -Continue IV antibiotics and wound care per ID -Continue regular heart healthy diet -No surgical intervention planned -Patient refuses to have EGD and colonoscopy for further anemia workup Physician Sap Fico Architect note has been reviewed by physician. Signing provider agrees with the documented findings, assessment, and plan of care. Objective - Vital Signs Vital signs: Vital Signs Temp 97.6 F 06/07/20 05:00 Pulse 88 06/07/20 05:00 Resp 20 06/07/20 05:00 BP 130/76 06/07/20 05:00 Pulse Ox 98 06/07/20 05:00 Intake & Output 06/06/20 06/07/20 06/07/20 18:59 06:59 18:59 Intake Total 800 1060 Output Total 1000 1700 Balance -200 -640 Intake: IV 60 Sodium Chloride 0.9% 1, 60 000 ml @ 20 mls/hr IV . Q24H [facility] Rx#:[id number] Intake, IV Titration 500 100 Amount Magnesium Sulfate-D5w Pmx 100 1 gm In Dextrose/Water 1 100ml.bag @ 100 mls/hr IVPB Q1H [facility] Rx#: [id number] Vancomycin 2,500 mg In 500 Sodium Chloride 0.9% 500 ml 500 ml @ 167 mls/hr IVPB Q36H [facility] Rx#: [id number] Oral 300 900 Output: Urine 500 600 Stool 500 1100 Other: Voiding Method Indwelling Catheter Indwelling Catheter Indwelling Catheter # Voids 0 # Bowel Movements 1 - Labs CBC & Chem 7: 06/07/20 07:19 06/07/20 10:12 Labs: Abnormal Lab Results - Last 24 Hours (Table) 06/06/20 06/06/20 06/07/20 Range/Units 19:08 20:16 07:19 RBC 2.95 L (4.30-5.90) m/uL Hgb 8.6 L (13.0-17.5) gm/dL Hct 27.6 L (39.0-53.0) % RDW 17.2 H (11.5-15.5) % Potassium 2.7 L* (3.5-5.1) mmol/L BUN (9.0-27.0) mg/dL BUN/Creatinine Ratio (12.00-20.00) Ratio POC Glucose (mg/dL) 126 H (75-99) mg/dL Calcium (8.7-10.3) mg/dL 06/07/20 06/07/20 Range/Units 07:19 10:12 RBC (4.30-5.90) m/uL Hgb (13.0-17.5) gm/dL Hct (39.0-53.0) % RDW (11.5-15.5) % Potassium 2.9 L 2.9 L (3.5-5.1) mmol/L BUN 7.0 L (9.0-27.0) mg/dL BUN/Creatinine Ratio 11.67 L (12.00-20.00) Ratio POC Glucose (mg/dL) (75-99) mg/dL Calcium 7.9 L (8.7-10.3) mg/dL
[2020-06-07] MEDS ORDERED: Potassium Replacement Protocol 1 EACH MISC MISCELLANE PRN (11:45)
[2020-06-07] MEDS: POTASSIUM CHLORIDE ER 20 MEQ TAB.ER PO SCH ×7 (12:46→22:10)
--- NOTE | 2020-06-07 16:40 | PN ---
PROGRESS NOTE DATE OF SERVICE: 06/07/2020 REASON FOR FOLLOWUP: Sacral pressure ulcer. INTERVAL HISTORY: The patient is currently afebrile. The patient is breathing comfortably. The patient denies having any chest pain. No shortness of breath or cough. No nausea. No vomiting, no abdominal pain, no diarrhea. PHYSICAL EXAMINATION: Blood pressure 92/60 with a pulse of 69, temperature is 98, he is 97% on room air. General description is a middle-aged male, lying in bed in no distress. RESPIRATORY SYSTEM: Unlabored breathing, clear to auscultation anteriorly. HEART: S1, S2. Regular rate and rhythm. ABDOMEN: Soft, no tenderness. LABS: Hemoglobin 8.9, white count 9.7, BUN of 7, creatinine 0.6. DIAGNOSTIC IMPRESSION AND PLAN: Patient with stage IV sacral pressure ulcer. This patient has been refuses most of his work including x-rays, bone scan, and wound VAC. I had a discussion with this patient again for application of wound VAC as well evidence of any bone infection and the patient received about 2 weeks of antibiotic should be more than enough for a superficial infection. Recommend starting wound VAC for the local wound care and antibiotic on discharge. MMODL / IJN: [id number] /
[2020-06-07 17:24] LABS: Glucose,Whole Blood 107 mg/dL (75-99)
--- NOTE | 2020-06-07 17:48 | PN ---
PROGRESS NOTE DATE OF SERVICE: 06/07/2020 This is a 59-year-old gentleman who was admitted with stage IV decubitus ulcer. Has recent diverting colostomy. No chest pain. No palpitations. No fever. The patient had continued persistent hypokalemia. The patient is noncompliant with medication. Patient apparently threw the potassium tablets which was given yesterday which was retrieved from the trash can by the staff nurse yesterday as conveyed to me. PHYSICAL EXAMINATION: GENERAL: Alert and oriented x3. VITAL SIGNS: Pulse 69, blood pressure 98/60, respiration 18, temperature 97.9, pulse ox 97% on room air. HEENT: Conjunctivae normal. Oral mucosa moist. NECK: No jugular venous distention. No carotid bruits. RESPIRATORY: Breath sounds diminished at the bases. No rhonchi, no crackles. HEART: S1 and S2, muffled. ABDOMEN: Soft, no tenderness. Obese. EXTREMITIES: No edema, no swelling. NERVOUS: No focal deficits. LABS: WBC 9.2, hemoglobin is 8.6, potassium is 2.9. ASSESSMENT: 1. Stage IV decubitus ulcer with recent diverting colostomy. 2. History of recent debridements in [facility]. 3. Severe hypokalemia. 4. Pain in the lower back secondary to pressure ulcer. 5. Bilateral lower extremity deep venous thrombosis, on Eliquis. 6. Noncompliance with treatment, refusing investigations. 7. Hypertension. 8. Diabetes mellitus type 2. 9. Benign prostate hypertrophy. 10.History of sleep apnea. 11.History of lymphedema. 12.History of chronic kidney stage 3. 13.History of chronic anemia. 14.History of coronary artery disease, stent placement. 15.Obesity with body mass index of 57. 16.History of asthma and chronic obstructive pulmonary disease. 17.History of congestive heart failure with ejection fraction unknown. 18.History of polymicrobial organisms including Ikrstie albicans grown from the cultures recently. 19.FULL CODE. RECOMMENDATIONS AND DISCUSSIONS: Recommend to continue current medications, continue symptomatic treatment. Otherwise, at this time the potassium is still low. I would recommend at least 120 mEq of potassium and continue to monitor. Magnesium replacement. Further recommendations to follow. Closely follow with Case Management and director social service. MMODL / IJN: [id number] /
[2020-06-07] MEDS: SODIUM CHLORIDE 0.9% 1,000 ML IV SCH (18:12)
[2020-06-07 20:14] LABS: Glucose,Whole Blood 104 mg/dL (75-99)
[2020-06-07] MEDS: MELATONIN 5 MG TABLET PO SCH (20:17)
[2020-06-07] MEDS: TOPIRAMATE 100 MG TAB PO SCH (20:17)
[2020-06-08] MEDS: HYDROmorphone 0.5 MG/0.5 ML SYRINGE IVP PRN ×3 (00:17→17:57)
[2020-06-08] MEDS: VANCOMYCIN 2,500 MG in SODIUM CHLORIDE 0.9% 500 ML 500 ML IVPB SCH (00:19)
[2020-06-08] MEDS: PANTOPRAZOLE 40 MG TABLET PO SCH (05:39)
[2020-06-08] MEDS: HYDROcodone/APAP 10-325MG 1 EACH TAB PO PRN ×3 (05:39→22:49)
[2020-06-08 07:24] LABS: Glucose,Whole Blood 97 mg/dL (75-99)
[2020-06-08] MEDS: INSULIN ASPART (NovoLOG) 100 UNIT/ML VIAL SQ SCH ×4 (09:32→21:40)
[2020-06-08] MEDS: ASPIRIN 81 MG PO SCH (09:32)
[2020-06-08] MEDS: SPIRONOLACTONE 25 MG TAB PO SCH (09:32)
[2020-06-08] MEDS: ASCORBIC ACID 500 MG TAB PO SCH (09:32)
[2020-06-08] MEDS: bisacodyL 5 MG TABLET.DR PO SCH (09:32)
[2020-06-08] MEDS: MULTIVITAMINS, THERA 1 EACH TAB PO SCH (09:32)
[2020-06-08] MEDS: POTASSIUM CHLORIDE ER 10 MEQ TAB.ER.PRT PO SCH (09:32)
[2020-06-08] MEDS: carvediloL 3.125 MG TAB PO SCH ×2 (09:32→17:55)
[2020-06-08] MEDS: APIXABAN 5 MG TAB PO SCH ×2 (09:32→20:11)
[2020-06-08] MEDS: BUMETANIDE 1 MG TAB PO SCH (09:33)
[2020-06-08] MEDS: SODIUM HYPOCHLORITE 0.25% 480 ML BOT MISCELLANE SCH (09:34)
--- NOTE | 2020-06-08 11:11 | P.PN ---
Subjective Progress Note Date: 06/08/20 CHIEF COMPLAINT: Decubitus ulcer HISTORY OF PRESENT ILLNESS: The patient is a 59-year-old male admitted with decubitis ulcer present on admission including multiple medical comorbidities as well as morbid obesity, BMI over 50, diabetes type 2, hypertensive heart disease, bilateral venous stasis disease. Patient is sleeping comfortably. He is tolerating diet. Denies any nausea or vomiting. He denies any black stools or blood in his stools in the colostomy. Afebrile. patient seen by infectious disease and they recommended a wound VAC. Patient has refused wound VAC again. Patient continues to have hypokalemia and potassium is being replaced. Magnesium 2.1 PHYSICAL EXAM: VITAL SIGNS: Reviewed. GENERAL: Well-developed in no acute distress. HEENT: No sclera icterus. Extraocular movements grossly intact. Moist buccal mucosa. Head is atraumatic, normocephalic. ABDOMEN: Soft. Nondistended. Nontender. Colostomy bag in place with stool present NEUROLOGIC: Alert and oriented. Cranial nerves II through XII grossly intact. Skin: Large stage IV decubitus ulcer ASSESSMENT: 1. Stage IV Decubitus ulcer 2. Morbid obesity due to excess calories, BMI 57.1 3. Leukocytosis 4. Bilateral lower extremity DVT on Eliquis 5. Normocytic Anemia likely multifactorial with chronic inflammation, Iron deficiency, malnutrition And chronic decubitus ulcer 6. Hypokalemia PLAN: -Continue IV antibiotics and wound care per ID -Continue regular heart healthy diet -No surgical intervention planned -Patient refuses to have EGD and colonoscopy for further anemia workup -Recommend to continue to replace potassium as needed. BMP ordered Physician Proposal Coordinator note has been reviewed by physician. Signing provider agrees with the documented findings, assessment, and plan of care. Objective - Vital Signs Vital signs: Vital Signs Temp 98 F 06/08/20 04:27 Pulse 63 06/08/20 04:27 Resp 20 06/08/20 04:27 BP 103/60 06/08/20 04:27 Pulse Ox 96 06/08/20 04:27 Intake & Output 06/07/20 06/08/20 06/08/20 18:59 06:59 18:59 Intake Total 160 1200 Output Total 600 450 Balance -440 750 Intake: IV 160 100 Sodium Chloride 0.9% 1, 160 100 000 ml @ 20 mls/hr IV . Q24H [facility] Rx#:[id number] Intake, IV Titration 500 Amount Vancomycin 2,500 mg In 500 Sodium Chloride 0.9% 500 ml 500 ml @ 167 mls/hr IVPB Q36H [facility] Rx#: [id number] Oral 600 Output: Urine 600 200 Uretheral (Rodriguez) 600 200 Stool 250 Other: Voiding Method Indwelling Catheter Indwelling Catheter Indwelling Catheter # Voids 0 - Labs CBC & Chem 7: 06/07/20 07:19 06/07/20 10:12 Labs: Abnormal Lab Results - Last 24 Hours (Table) 06/07/20 06/07/20 Range/Units 17:22 20:13 POC Glucose (mg/dL) 107 H 104 H (75-99) mg/dL
[2020-06-08 11:22] LABS: Glucose,Whole Blood 86 mg/dL (75-99)
[2020-06-08 17:23] LABS: Glucose,Whole Blood 99 mg/dL (75-99)
[2020-06-08] MEDS: SODIUM CHLORIDE 0.9% 1,000 ML IV SCH (17:56)
[2020-06-08] MEDS ORDERED: HYDROmorphone 0.5 MG/0.5 ML SYRINGE IVP STA (20:06)
[2020-06-08] MEDS: MELATONIN 5 MG TABLET PO SCH (20:11)
[2020-06-08] MEDS: TOPIRAMATE 100 MG TAB PO SCH (20:11)
[2020-06-08 21:40] LABS: Glucose,Whole Blood 101 mg/dL (75-99)
[2020-06-08] MEDS: KETOCONAZOLE 2% SHAMPOO 1 APPLIC/ML TOPICAL SCH (22:17)
--- NOTE | 2020-06-08 22:49 | PN ---
PROGRESS NOTE DATE OF SERVICE: 06/08/2020 REASON FOR FOLLOWUP: Sacral pressure ulcer. INTERVAL HISTORY: Patient is currently afebrile, has been breathing comfortably. Denies having any chest pain or shortness of breath or cough. No nausea, vomiting. No abdominal pain, no diarrhea. PHYSICAL EXAMINATION: Blood pressure 121/75 with a pulse of 90, temperature 98.7. He is 96% on room air.. General description is an elderly middle-aged male lying in bed in no distress. Respiratory system: Unlabored breathing, clear to auscultation anteriorly. Heart S1, S2. Regular rate and rhythm. Abdomen soft, no tenderness. LABS: No new labs have been obtained today. DIAGNOSTIC IMPRESSION AND PLAN: Patient with stage IV sacral pressure ulcer with no convincing evidence of osteomyelitis and the patient has refused any testing for the same. He is even refusing wound VAC though every day he says he will think about it and wants some Xanax and more pain medication. We will discuss further with the primary. The patient may be discharged back to the residential and no antibiotics. MMODL / IJN: [id number] /
[2020-06-09] MEDS: HYDROmorphone 0.5 MG/0.5 ML SYRINGE IVP PRN ×3 (02:14→20:29)
[2020-06-09] MEDS: PANTOPRAZOLE 40 MG TABLET PO SCH (06:15)
[2020-06-09 07:38] LABS: Glucose,Whole Blood 89 mg/dL (75-99)
[2020-06-09] MEDS: INSULIN ASPART (NovoLOG) 100 UNIT/ML VIAL SQ SCH ×3 (08:11→17:41)
[2020-06-09] MEDS: bisacodyL 5 MG TABLET.DR PO SCH (08:27)
[2020-06-09] MEDS: APIXABAN 5 MG TAB PO SCH ×2 (08:28→20:30)
[2020-06-09] MEDS: ASCORBIC ACID 500 MG TAB PO SCH (08:28)
[2020-06-09] MEDS: SPIRONOLACTONE 25 MG TAB PO SCH (08:28)
[2020-06-09] MEDS: POTASSIUM CHLORIDE ER 10 MEQ TAB.ER.PRT PO SCH (08:28)
[2020-06-09] MEDS: ASPIRIN 81 MG PO SCH (08:28)
[2020-06-09] MEDS: BUMETANIDE 1 MG TAB PO SCH (08:29)
[2020-06-09] MEDS: MULTIVITAMINS, THERA 1 EACH TAB PO SCH (08:29)
[2020-06-09] MEDS: carvediloL 3.125 MG TAB PO SCH ×2 (08:29→15:59)
[2020-06-09] MEDS: SODIUM HYPOCHLORITE 0.25% 480 ML BOT MISCELLANE SCH (08:30)
[2020-06-09] MEDS: HYDROcodone/APAP 10-325MG 1 EACH TAB PO PRN ×2 (08:46→15:59)
[2020-06-09 10:27] LABS: African American GFR (CKD) >90 (>60 ml/min/1.73 sqM); Non-African American GFR(CKD) >90 (>60 ml/min/1.73 sqM)
[2020-06-09 12:22] LABS: Glucose,Whole Blood 87 mg/dL (75-99)
[2020-06-09] MEDS: VANCOMYCIN 2,500 MG in SODIUM CHLORIDE 0.9% 500 ML 500 ML IVPB SCH (12:37)
[2020-06-09 17:19] LABS: Glucose,Whole Blood 96 mg/dL (75-99)
[2020-06-09] MEDS: MELATONIN 5 MG TABLET PO SCH (20:30)
[2020-06-09] MEDS: TOPIRAMATE 100 MG TAB PO SCH (20:30)
[2020-06-09 20:37] LABS: Glucose,Whole Blood 99 mg/dL (75-99)
--- NOTE | 2020-06-09 23:05 | PN ---
PROGRESS NOTE DATE OF SERVICE: 06/09/2020 REASON FOR FOLLOWUP: Sacral pressure ulcer. INTERVAL HISTORY: Patient is currently afebrile. He is breathing comfortably. No chest pain. No cough. No abdominal pain or worsening pain to the sacral wound area, continues to be on Vanco. PHYSICAL EXAMINATION: Blood pressure 131/79, pulse of 104, temperature 98.1. He is 95% on room air. General description is a middle-aged male lying in bed in no distress. Respiratory system: Unlabored breathing, clear to auscultation anteriorly. Heart S1, S2. Regular rate and rhythm. Abdomen soft, no tenderness. LABS: No new labs have been obtained today. DIAGNOSTIC IMPRESSION AND PLAN: Patient with a sacral pressure ulcer, stage IV in this patient unfortunately has been refusing bone scan, x-rays or wound VAC. [facility] Local wound care currently and no need for systemic antibiotic therapy. MMODL / IJN: [id number] /
[2020-06-10] MEDS: HYDROcodone/APAP 10-325MG 1 EACH TAB PO PRN ×3 (00:45→18:23)
[2020-06-10] MEDS: INSULIN ASPART (NovoLOG) 100 UNIT/ML VIAL SQ SCH ×5 (00:45→23:01)
[2020-06-10] MEDS: SODIUM CHLORIDE 0.9% 1,000 ML IV SCH ×2 (01:44→23:02)
[2020-06-10] MEDS: PANTOPRAZOLE 40 MG TABLET PO SCH (05:11)
[2020-06-10] MEDS: HYDROmorphone 0.5 MG/0.5 ML SYRINGE IVP PRN ×3 (05:11→20:54)
[2020-06-10 07:43] LABS: Glucose,Whole Blood 96 mg/dL (75-99)
[2020-06-10] MEDS: bisacodyL 5 MG TABLET.DR PO SCH (09:35)
[2020-06-10] MEDS: SPIRONOLACTONE 25 MG TAB PO SCH (09:35)
[2020-06-10] MEDS: POTASSIUM CHLORIDE ER 10 MEQ TAB.ER.PRT PO SCH (09:35)
[2020-06-10] MEDS: ASCORBIC ACID 500 MG TAB PO SCH (09:36)
[2020-06-10] MEDS: carvediloL 3.125 MG TAB PO SCH ×2 (09:36→18:23)
[2020-06-10] MEDS: ASPIRIN 81 MG PO SCH (09:36)
[2020-06-10] MEDS: MULTIVITAMINS, THERA 1 EACH TAB PO SCH ×2 (09:37→09:40)
[2020-06-10] MEDS: BUMETANIDE 1 MG TAB PO SCH (09:38)
[2020-06-10] MEDS: APIXABAN 5 MG TAB PO SCH ×2 (09:55→23:02)
[2020-06-10 11:55] LABS: Glucose,Whole Blood 88 mg/dL (75-99)
[2020-06-10] MEDS: SODIUM HYPOCHLORITE 0.25% 480 ML BOT MISCELLANE SCH (13:41)
[2020-06-10 17:35] LABS: Glucose,Whole Blood 106 mg/dL (75-99)
--- NOTE | 2020-06-10 19:06 | P.PN ---
Subjective Progress Note Date: 06/08/20 Principal diagnosis: Stage IV infected decubitus ulcer Bilateral lower extremity DVT 59-year-old male admitted with decubitis ulcer present on admission including multiple medical comorbidities as well as morbid obesity, BMI over 50, diabetes type 2, hypertensive heart disease, bilateral venous stasis disease. Patient is sleeping comfortably. He is tolerating diet. Denies any nausea or vomiting. He denies any black stools or blood in his stools in the colostomy. Afebrile. patient seen by infectious disease and they recommended a wound VAC. Patient has refused wound VAC again. Patient continues to have hypokalemia and potassium is being replaced. Magnesium 2.1 Objective - Vital Signs Vital signs: Vital Signs Temp 98 F 06/08/20 04:27 Pulse 63 06/08/20 04:27 Resp 20 06/08/20 04:27 BP 103/60 06/08/20 04:27 Pulse Ox 96 06/08/20 04:27 Intake & Output 06/07/20 06/08/20 06/08/20 18:59 06:59 18:59 Intake Total 160 1200 Output Total 600 450 Balance -440 750 Intake: IV 160 100 Sodium Chloride 0.9% 1, 160 100 000 ml @ 20 mls/hr IV . Q24H [facility] Rx#:[id number] Intake, IV Titration 500 Amount Vancomycin 2,500 mg In 500 Sodium Chloride 0.9% 500 ml 500 ml @ 167 mls/hr IVPB Q36H [facility] Rx#: [id number] Oral 600 Output: Urine 600 200 Uretheral (Rodriguez) 600 200 Stool 250 Other: Voiding Method Indwelling Catheter Indwelling Catheter Indwelling Catheter # Voids 0 - Exam VITAL SIGNS: Reviewed. GENERAL: Well-developed in no acute distress. HEENT: No sclera icterus. Extraocular movements grossly intact. Moist buccal mucosa. Head is atraumatic, normocephalic. ABDOMEN: Soft. Nondistended. Nontender. Colostomy bag in place with stool present NEUROLOGIC: Alert and oriented. Cranial nerves II through XII grossly intact. Skin: Large stage IV decubitus ulcer - Labs CBC & Chem 7: 06/07/20 07:19 06/09/20 08:59 Labs: Abnormal Lab Results - Last 24 Hours (Table) 06/07/20 06/07/20 Range/Units 17:22 20:13 POC Glucose (mg/dL) 107 H 104 H (75-99) mg/dL Assessment and Plan Assessment: ASSESSMENT: 1. Stage IV Decubitus ulcer 2. Morbid obesity due to excess calories, BMI 57.1 3. Leukocytosis 4. Bilateral lower extremity DVT on Eliquis 5. Normocytic Anemia likely multifactorial with chronic inflammation, Iron deficiency, malnutrition And chronic decubitus ulcer 6. Hypokalemia PLAN: -Continue IV antibiotics and wound care per ID -Continue regular heart healthy diet -No surgical intervention planned -Patient refuses to have EGD and colonoscopy for further anemia workup -Recommend to continue to replace potassium as needed. BMP ordered
--- NOTE | 2020-06-10 19:08 | P.PN ---
Subjective Progress Note Date: 06/09/20 Principal diagnosis: Stage IV infected decubitus ulcer Bilateral lower extremity DVT 59-year-old male admitted with decubitis ulcer present on admission including multiple medical comorbidities as well as morbid obesity, BMI over 50, diabetes type 2, hypertensive heart disease, bilateral venous stasis disease. Patient is sleeping comfortably. He is tolerating diet. Denies any nausea or vomiting. He denies any black stools or blood in his stools in the colostomy. Afebrile. patient seen by infectious disease and they recommended a wound VAC. Patient has refused wound VAC again. Patient continues to have hypokalemia and potassium is being replaced. Magnesium 2.1 06/09/2020 Patient is seen and evaluated in room at bedside; vital signs are reviewed; patient remains afebrile; blood pressure 131/79, pulse 104, respiration 18, O2 saturation 95% on room air and temperature of 98.1 Patient denies any specific complaints; reports he is still taking about wound VAC Patient remains on IV vancomycin Objective - Vital Signs Vital signs: Vital Signs Temp 97.8 F 06/09/20 06:21 Pulse 102 H 06/09/20 08:00 Resp 17 06/09/20 06:21 BP 109/67 06/09/20 06:21 Pulse Ox 96 06/09/20 06:21 Intake & Output 06/08/20 06/09/20 06/09/20 18:59 06:59 18:59 Intake Total 290 Output Total 250 1150 Balance -250 -860 Intake: Oral 290 Output: Urine 250 1150 Uretheral (Rodriguez) 250 1000 Other: Voiding Method Indwelling Catheter Indwelling Catheter Indwelling Catheter # Voids 0 # Bowel Movements 1 - Exam VITAL SIGNS: Reviewed. GENERAL: Well-developed in no acute distress. HEENT: No sclera icterus. Extraocular movements grossly intact. Moist buccal mucosa. Head is atraumatic, normocephalic. ABDOMEN: Soft. Nondistended. Nontender. Colostomy bag in place with stool pres ent NEUROLOGIC: Alert and oriented. Cranial nerves II through XII grossly intact. Skin: Large stage IV decubitus ulcer - Labs CBC & Chem 7: 06/07/20 07:19 06/09/20 08:59 Labs: Abnormal Lab Results - Last 24 Hours (Table) 06/08/20 Range/Units 21:38 POC Glucose (mg/dL) 101 H (75-99) mg/dL Assessment and Plan Assessment: ASSESSMENT: 1. Stage IV Decubitus ulcer 2. Morbid obesity due to excess calories, BMI 57.1 3. Leukocytosis 4. Bilateral lower extremity DVT on Eliquis 5. Normocytic Anemia likely multifactorial with chronic inflammation, Iron deficiency, malnutrition And chronic decubitus ulcer 6. Hypokalemia PLAN: -Continue IV antibiotics and wound care per ID -Continue regular heart healthy diet -No surgical intervention planned -Patient refuses to have EGD and colonoscopy for further anemia workup -Recommend to continue to replace potassium as needed. BMP ordered
--- NOTE | 2020-06-10 19:11 | P.PN ---
Subjective Progress Note Date: 06/10/20 Principal diagnosis: Stage IV infected decubitus ulcer Bilateral lower extremity DVT 59-year-old male admitted with decubitis ulcer present on admission including multiple medical comorbidities as well as morbid obesity, BMI over 50, diabetes type 2, hypertensive heart disease, bilateral venous stasis disease. Patient is sleeping comfortably. He is tolerating diet. Denies any nausea or vomiting. He denies any black stools or blood in his stools in the colostomy. Afebrile. patient seen by infectious disease and they recommended a wound VAC. Patient has refused wound VAC again. Patient continues to have hypokalemia and potassium is being replaced. Magnesium 2.1 06/09/2020 Patient is seen and evaluated in room at bedside; vital signs are reviewed; patient remains afebrile; blood pressure 131/79, pulse 104, respiration 18, O2 saturation 95% on room air and temperature of 98.1 Patient denies any specific complaints; reports he is still taking about wound VAC Patient remains on IV vancomycin 06/10/2020 Patient is seen for follow-up; remains on IV vancomycin; await final recommendations from ID transfer duration and final choice of IV antibiotics Objective - Vital Signs Vital signs: Vital Signs Temp 98.7 F 06/10/20 05:57 Pulse 98 06/10/20 05:57 Resp 19 06/10/20 05:57 BP 125/70 06/10/20 05:57 Pulse Ox 94 L 06/10/20 05:57 Intake & Output 06/09/20 06/10/20 06/10/20 18:59 06:59 18:59 Intake Total 500 Output Total 950 1600 Balance -950 -1100 Intake: Oral 500 Output: Urine 650 1150 Uretheral (Rodriguez) 500 Stool 300 450 Other: Voiding Method Indwelling Catheter Indwelling Catheter # Voids 0 - Exam VITAL SIGNS: Reviewed. GENERAL: Well-developed in no acute distress. HEENT: No sclera icterus. Extraocular movements grossly intact. Moist buccal mucosa. Head is atraumatic, normocephalic. ABDOMEN: Soft. Nondistended. Nontender. Colostomy bag in place with stool present NEUROLOGIC: Alert and oriented. Cranial nerves II through XII grossly intact. Skin: Large stage IV decubitus ulcer - Labs CBC & Chem 7: 06/07/20 07:19 11/14/20 08:59 Assessment and Plan Assessment: ASSESSMENT: 1. Stage IV Decubitus ulcer 2. Morbid obesity due to excess calories, BMI 57.1 3. Leukocytosis 4. Bilateral lower extremity DVT on Eliquis 5. Normocytic Anemia likely multifactorial with chronic inflammation, Iron deficiency, malnutrition And chronic decubitus ulcer 6. Hypokalemia PLAN: -Continue IV antibiotics and wound care per ID -Continue regular heart healthy diet -No surgical intervention planned -Patient refuses to have EGD and colonoscopy for further anemia workup -Recommend to continue to replace potassium as needed. BMP ordered
[2020-06-10 21:37] LABS: Glucose,Whole Blood 94 mg/dL (75-99)
[2020-06-10] MEDS: MELATONIN 5 MG TABLET PO SCH (23:01)
[2020-06-10] MEDS: TOPIRAMATE 100 MG TAB PO SCH (23:02)
[2020-06-10] MEDS: KETOCONAZOLE 2% SHAMPOO 1 APPLIC/ML TOPICAL SCH (23:03)
[2020-06-11] MEDS: HYDROcodone/APAP 10-325MG 1 EACH TAB PO PRN ×5 (00:04→23:12)
[2020-06-11] MEDS: HYDROmorphone 0.5 MG/0.5 ML SYRINGE IVP PRN ×2 (02:48→09:27)
--- NOTE | 2020-06-11 04:58 | PN ---
PROGRESS NOTE DATE OF SERVICE: 06/10/2020 REASON FOR FOLLOWUP: Sacral pressure ulcer. INTERVAL HISTORY: The patient is currently afebrile. The patient is breathing comfortably. Denies having any chest pain or cough. No abdominal pain or any worsening pain to the sacral wound area. PHYSICAL EXAMINATION: Blood pressure 125/70 with a pulse of 98, temperature 98.7. He is 94% on room air. General description is a middle-aged male lying in bed in no distress. RESPIRATORY SYSTEM: Unlabored breathing, clear to auscultation anteriorly. HEART: S1, S2. Regular rate and rhythm. ABDOMEN: Soft, no tenderness. Legs are currently wrapped up. No obvious drainage on the dressing. LABS: Creatinine 0.68. White count was normal. No cultures done this admission. DIAGNOSTIC IMPRESSION AND PLAN: Patient with stage IV pressure ulcer in this patient has been refusing any workup to rule out any underlying osteomyelitis and need for outpatient antibiotic therapy. The patient recently did have debridement at [facility]. There was no extension down to the bone and culture did grow multiple pathogens though was disregarded in this patient with possible superficial infection adequately treated. Vancomycin will be discontinued. Has been advised again with a wound VAC that will help in healing this wound, he said he will think about it. MMODL / IJN: [id number] /
[2020-06-11] MEDS: PANTOPRAZOLE 40 MG TABLET PO SCH (05:56)
[2020-06-11 07:24] LABS: Glucose,Whole Blood 78 mg/dL (75-99)
[2020-06-11] MEDS: INSULIN ASPART (NovoLOG) 100 UNIT/ML VIAL SQ SCH ×4 (07:27→21:21)
[2020-06-11] MEDS: MULTIVITAMINS, THERA 1 EACH TAB PO SCH ×2 (09:26→14:14)
[2020-06-11] MEDS: BUMETANIDE 1 MG TAB PO SCH ×2 (09:26→14:14)
[2020-06-11] MEDS: POTASSIUM CHLORIDE ER 10 MEQ TAB.ER.PRT PO SCH ×2 (09:26→14:14)
[2020-06-11] MEDS: bisacodyL 5 MG TABLET.DR PO SCH ×2 (09:26→14:14)
[2020-06-11] MEDS: APIXABAN 5 MG TAB PO SCH ×3 (09:26→21:16)
[2020-06-11] MEDS: SPIRONOLACTONE 25 MG TAB PO SCH ×2 (09:26→14:14)
[2020-06-11] MEDS: ASCORBIC ACID 500 MG TAB PO SCH ×2 (09:27→14:13)
[2020-06-11] MEDS: ASPIRIN 81 MG PO SCH ×2 (09:27→14:14)
[2020-06-11] MEDS: carvediloL 3.125 MG TAB PO SCH ×3 (09:27→17:54)
[2020-06-11] MEDS: SODIUM HYPOCHLORITE 0.25% 480 ML BOT MISCELLANE SCH (09:33)
[2020-06-11 10:58] LABS: Glucose,Whole Blood 80 mg/dL (75-99)
[2020-06-11 11:45] LABS: African American GFR (CKD) >90 (>60 ml/min/1.73 sqM); Anion Gap 2 mmol/L; Blood Urea Nitrogen 10 mg/dL (9-20); Calcium 7.6 mg/dL (8.4-10.2); Carbon Dioxide 27 mmol/L (22-30); Chloride 108 mmol/L (98-107); Glucose 85 mg/dL (74-99); Non-African American GFR(CKD) >90 (>60 ml/min/1.73 sqM); Potassium 3.1 mmol/L (3.5-5.1); Sodium 137 mmol/L (137-145)
[2020-06-11] MEDS: SODIUM CHLORIDE 0.9% 1,000 ML IV SCH (17:41)
[2020-06-11 17:56] LABS: Glucose,Whole Blood 90 mg/dL (75-99)
[2020-06-11] MEDS: TOPIRAMATE 100 MG TAB PO SCH (21:16)
[2020-06-11] MEDS: MELATONIN 5 MG TABLET PO SCH (21:16)
[2020-06-11 21:20] LABS: Glucose,Whole Blood 108 mg/dL (75-99)
--- NOTE | 2020-06-11 22:32 | PN ---
PROGRESS NOTE DATE OF SERVICE: 06/11/2020. REASON FOR FOLLOWUP: Stage IV sacral pressure ulcer. INTERVAL HISTORY: Patient is currently afebrile. The patient is breathing comfortably. Denies having any chest pain. No shortness of breath or cough. No abdominal pain or worsening pain to the sacral area. PHYSICAL EXAMINATION: Blood pressure 114/69, pulse of 94, temperature 97.9. He is 95% on room air. General description: The patient is a middle-aged male lying in bed in no distress. Respiratory system: Unlabored breathing, clear to auscultation anteriorly. Heart S1, S2. Regular rate and rhythm. Abdomen soft, no tenderness. Right leg wound is currently dressed. No obvious drainage on the dressing. LABS: Creatinine 0.63. DIAGNOSTIC IMPRESSION AND PLAN: Patient with stage IV sacral pressure ulcer. This patient has been refusing all his care and has refused plain x-rays, bone scan and wound VAC infection has been adequately treated as we do not have any documentation for deep infection, cannot recommend any antibiotic on discharge. Still recommending a wound VAC. The patient is refusing. MMODL / IJN: [id number] /
[2020-06-12] MEDS: HYDROcodone/APAP 10-325MG 1 EACH TAB PO PRN ×4 (06:09→22:50)
[2020-06-12] MEDS: PANTOPRAZOLE 40 MG TABLET PO SCH (06:10)
[2020-06-12 07:29] LABS: Glucose,Whole Blood 78 mg/dL (75-99)
[2020-06-12] MEDS: bisacodyL 5 MG TABLET.DR PO SCH (08:53)
[2020-06-12] MEDS: ASPIRIN 81 MG PO SCH (08:53)
[2020-06-12] MEDS: BUMETANIDE 1 MG TAB PO SCH (08:53)
[2020-06-12] MEDS: ASCORBIC ACID 500 MG TAB PO SCH (08:53)
[2020-06-12] MEDS: APIXABAN 5 MG TAB PO SCH ×2 (08:53→20:06)
[2020-06-12] MEDS: MULTIVITAMINS, THERA 1 EACH TAB PO SCH (08:54)
[2020-06-12] MEDS: INSULIN ASPART (NovoLOG) 100 UNIT/ML VIAL SQ SCH ×4 (08:54→20:06)
[2020-06-12] MEDS: carvediloL 3.125 MG TAB PO SCH ×2 (08:54→17:04)
[2020-06-12] MEDS: POTASSIUM CHLORIDE ER 10 MEQ TAB.ER.PRT PO SCH (08:54)
[2020-06-12] MEDS: SPIRONOLACTONE 25 MG TAB PO SCH (08:54)
[2020-06-12] MEDS: SODIUM HYPOCHLORITE 0.25% 480 ML BOT MISCELLANE SCH (08:56)
[2020-06-12 11:32] LABS: Glucose,Whole Blood 77 mg/dL (75-99)
--- NOTE | 2020-06-12 12:14 | P.PN ---
Subjective Progress Note Date: 06/12/20 CHIEF COMPLAINT: Decubitus ulcer HISTORY OF PRESENT ILLNESS: Patient is being followed for his decubitus ulcer. He has refused wound VAC as recommended per ID. His Covid is positive. He is supposed to be discharged to [facility] facility. Afebrile PHYSICAL EXAM: VITAL SIGNS: Reviewed. GENERAL: Well-developed in no acute distress. HEENT: No sclera icterus. Extraocular movements grossly intact. Moist buccal mucosa. Head is atraumatic, normocephalic. ABDOMEN: Soft. Nondistended. Nontender. Colostomy bag in place with stool present NEUROLOGIC: Alert and oriented. Cranial nerves II through XII grossly intact. Skin: Large stage IV decubitus ulcer ASSESSMENT: 1. Stage IV Decubitus ulcer 2. Morbid obesity due to excess calories, BMI 57.1 3. Leukocytosis 4. Bilateral lower extremity DVT on Eliquis 5. Normocytic Anemia likely multifactorial with chronic inflammation, Iron deficiency, malnutrition And chronic decubitus ulcer 6. Hypokalemia 7. Covid positive PLAN: -Continue regular heart healthy diet -No surgical intervention planned -Patient refuses to have EGD and colonoscopy for further anemia workup Physician Senior Contracts Manager note has been reviewed by physician. Signing provider agrees with the documented findings, assessment, and plan of care. Objective - Vital Signs Vital signs: Vital Signs Temp 97.8 F 06/12/20 08:00 Pulse 88 06/12/20 08:00 Resp 18 06/12/20 08:00 BP 110/65 06/12/20 08:00 Pulse Ox 96 06/12/20 08:00 Intake & Output 06/11/20 06/12/20 06/12/20 18:59 06:59 18:59 Intake Total 0 1100 Output Total 800 Balance 0 300 Intake: IV 0 Sodium Chloride 0.9% 1, 0 000 ml @ 20 mls/hr IV . Q24H [facility] Rx#:[id number] Oral 1100 Output: Urine 800 Other: Voiding Method Indwelling Catheter Indwelling Catheter Indwelling Catheter # Voids 0 - Labs CBC & Chem 7: 06/07/20 07:19 06/11/20 10:50 Labs: Abnormal Lab Results - Last 24 Hours (Table) 06/11/20 06/12/20 Range/Units 21:08 09:00 POC Glucose (mg/dL) 108 H (75-99) mg/dL Coronavirus (PCR) Detected A (Not Detectd)
--- NOTE | 2020-06-12 13:42 | P.DS ---
Providers Date of admission: 05/24/20 18:03 Expected date of discharge: 06/12/20 Attending physician: Erasmo Quispe Consults: 05/24/20 18:01 Consult Physician Routine Consulting Provider: Darci Biggs Consult Reason/Comments: decubitus ulcer Do you want consulting provider notified?: Yes Consult Physician Routine Consulting Provider: Vikas Escamilla Consult Reason/Comments: decubitus ulcer Do you want consulting provider notified?: Yes 05/25/20 12:11 Consult Physician Urgent Consulting Provider: Stephon Navarro Consult Reason/Comments: b/l dvt Do you want consulting provider notified?: Yes 05/28/20 13:23 Consult Physician Routine Consulting Provider: Vilma White Consult Reason/Comments: EGD, Colonoscopy, GI Eval for iron deficiency Do you want consulting provider notified?: Yes 05/30/20 10:52 Consult to Anesthesia Routine Consulting Provider: Anesthesia,Services Consult Reason/Comments: for pain managment /sedation for bone scan to be completed 05/30/20 13:46 Consult Physician Routine Consulting Provider: Darien Peng Consult Reason/Comments: pt refusing care. evaluation for possible gardian Do you want consulting provider notified?: Yes 06/01/20 14:43 Consult Physician Routine Consulting Provider: Vikas Escamilla Consult Reason/Comments: infected pressure ulcer, r/u OM. pt refusing test Do you want consulting provider notified?: Yes Primary care physician: [facility] Course: Final diagnosis Stage IV decubitus ulcer Morbid obesity due to excess calories with a BMI of 57.1 Leukocytosis Bilateral lower extremity DVT on Eliquis Normocytic anemia likely multifactorial with chronic inflammation, iron deficiency, malnutrition, and chronic decubitus ulcer Hypokalemia Covid 19 positive Discharge disposition Patient is being discharged in a stable condition with guarded prognosis to [facility] as he is a resident. Patient will follow-up with primary care provider in the outpatient setting upon discharge. Patient was instructed to continue with local wound care and also instructed for wound VAC upon readmission to the nursing facility. Total time taken is greater than 35 minutes. History of present illness This is a 59-year-old male who was recently admitted with a decubitus ulcer that was present on admission along with multiple medical comorbidities and morbid obesity and was being closely monitored. Patient was seen and evaluated by infectious disease recommending IV antibiotic treatment and also wound care with a wound VAC to the sacral decubitus ulcer. Patient has been refusing all treatments including IV antibiotics, labs, wound VAC, and medications during this admission. Instructions were provided for wound VAC upon readmission to [facility] if he agrees to this treatment. Patient was also seen and evaluated by GI and surgery although refusing any endoscopic studies for the anemia at this time. Patient does have a positive Covid 19 test. Currently no reports of chest pain, shortness of breath, or palpitations. Patient is afebrile. No reports of nausea or vomiting and patient is tolerating diet. Patient is having pain generalized that is chronic in nature. Patient will be going to [facility] as he is a resident there upon acceptance. On exam vital signs are stable. Temp is 97.8F, pulse is 88, respirations are 18, blood pressure is 110/65, oxygen saturation is 96% on room air. Cardio S1, S2 are muffled. Respiratory system shows diminished breath sounds at the bases with no wheezing or rhonchi noted. Abdomen is soft and obese, and nontender. Nervous system shows diffuse weakness. Please refer to medication reconciliation sheet for a list of medications. Patient Condition at Discharge: Stable Plan - Discharge Summary Discharge Rx Participant: Yes New Discharge Prescriptions: New Apixaban [Eliquis] 5 mg PO BID tab Potassium Chloride ER [K-Dur 10] 30 meq PO DAILY tab.er.prt Continue Spironolactone [Aldactone] 25 mg PO DAILY@0700 Sodium Chloride [Saline Nasal [place]] 1 spray EA NOSTRIL Q2H PRN PRN Reason: Congestion Nicotine Polacrilex [Nicotine Lozenge] 4 mg BUCCAL Q6H PRN PRN Reason: NICOTINE DEPENDENCE Menthol [Nice Cough Drops] 1 lozenge BUCCAL Q2H PRN PRN Reason: Cough Magnesium Hydroxide [Milk of Magnesia] 2,400 mg PO DAILY PRN PRN Reason: Constipation Ketoconazole 2% Shampoo [Nizoral] 1 applic TOPICAL SUWEFR carvediloL [Coreg] 3.125 mg PO BID@0700,1700 bisacodyL [Dulcolax] 20 mg PO DAILY@0700 Aspirin [Trinity Aspirin EC] 81 mg PO DAILY@0700 Acetaminophen Tab [Tylenol] 650 mg PO Q6H PRN MDD 3,000mg/24hr PRN Reason: Fever And/ Or Pain Topiramate [Topamax] 100 mg PO HS@2100 Pantoprazole [Protonix] 40 mg PO DAILY@0600 Multivitamins, Thera [Multivitamin (formulary)] 1 tab PO DAILY@0700 Melatonin 5 mg PO HS@2100 Bumetanide [BUMEX] 1 mg PO DAILY@0700 Ascorbic Acid [Vitamin C] 500 mg PO DAILY@0700 Benzocaine Lozenge 1 lozenge BUCCAL Q2H PRN PRN Reason: Sore Throat Eucerin Lotion 1 applic TOPICAL BID Eucerin Plus Cream 2.5-10% 1 applicate TOPICAL BID Hysept Solution 0.25% 1 applic TOPICAL DAILY Insulin Lispro [Admelog Solostar] See Protocol SQ ACHS@0730,11,16,2099 HYDROcodone/APAP 10-325MG [[place] 10-325] 1 tab PO Q4H PRN #5 tab PRN Reason: pain Discontinued Enoxaparin [Lovenox] 0.4 ml SQ DAILY@0700 Discharge Medication List Acetaminophen Tab [Tylenol] 650 mg PO Q6H PRN MDD 3,000mg/24hr 09/01/19 [History] Aspirin [Trinity Aspirin EC] 81 mg PO DAILY@0700 09/01/19 [History] Ketoconazole 2% Shampoo [Nizoral] 1 applic TOPICAL SUWEFR 09/01/19 [History] Magnesium Hydroxide [Milk of Magnesia] 2,400 mg PO DAILY PRN 09/01/19 [History] Menthol [Nice Cough Drops] 1 lozenge BUCCAL Q2H PRN 09/01/19 [History] Nicotine Polacrilex [Nicotine Lozenge] 4 mg BUCCAL Q6H PRN 09/01/19 [History] Sodium Chloride [Saline Nasal [place]] 1 spray EA NOSTRIL Q2H PRN 09/01/19 [History] Spironolactone [Aldactone] 25 mg PO DAILY@0700 09/01/19 [History] bisacodyL [Dulcolax] 20 mg PO DAILY@0700 09/01/19 [History] carvediloL [Coreg] 3.125 mg PO BID@0700,1700 09/01/19 [History] Ascorbic Acid [Vitamin C] 500 mg PO DAILY@0705/08/20 [History] Benzocaine Lozenge 1 lozenge BUCCAL Q2H PRN 05/08/20 [History] Bumetanide [BUMEX] 1 mg PO DAILY@0705/08/20 [History] Eucerin Lotion 1 applic TOPICAL BID 05/08/20 [History] Eucerin Plus Cream 2.5-10% 1 applicate TOPICAL BID 05/08/20 [History] Melatonin 5 mg PO HS@209905/08/20 [History] Multivitamins, Thera [Multivitamin (formulary)] 1 tab PO DAILY@69905/08/20 [History] Pantoprazole [Protonix] 40 mg PO DAILY@59905/08/20 [History] Topiramate [Topamax] 100 mg PO HS@209905/08/20 [History] Hysept Solution 0.25% 1 applic TOPICAL DAILY 05/24/20 [History] Insulin Lispro [Admelog Solostar] See Protocol SQ ACHS@0730,11,16,209905/24/20 [History] Apixaban [Eliquis] 5 mg PO BID tab 06/06/20 [Rx] HYDROcodone/APAP 10-325MG [[place] 10-325] 1 tab PO Q4H PRN #5 tab 06/06/20 [Rx] Potassium Chloride ER [K-Dur 10] 30 meq PO DAILY tab.er.prt 06/06/20 [Rx] Follow up Appointment(s)/Referral(s): Jani Cisneros MD [Primary Care Provider] - 1-2 days Patient Instructions/Handouts: Hydrocodone/Acetaminophen (By mouth), Type 2 Diabetes in Adults: New Diagnosis (DC) Activity/Diet/Wound Care/Special Instructions: Lace: 13 - high risk for hospital readmission Patient is going to [facility] Activity as tolerated Patient follow-up with primary care provider upon discharge Patient to follow-up at the wound center in the outpatient setting Patient was instructed to continue the wound VAC to the sacrum with settings of 125 mmHg with medium intensity and granny foam black foam dressing. Wound care every Thursday/Thursday/Thursday to the right foot ulcer by applying honey alginate, saline moistened gauze, dry gauze, rolled gauze secured with paper tape and change more frequently if becomes soiled Continue to monitor blood sugars before meals at bedtime and treat accordingly with sliding scale Continue heart healthy consistent carb diet Discharge Disposition: TRANSFER TO SNF/ECF
--- NOTE | 2020-06-12 15:23 | PN ---
PROGRESS NOTE DATE OF SERVICE: 06/12/2020 REASON FOR FOLLOWUP: Stage IV sacral pressure ulcer. INTERVAL HISTORY: The patient is currently afebrile. Requesting for more pain medication. The patient denies having any chest pain or shortness of breath or cough. No abdominal pain or diarrhea. PHYSICAL EXAMINATION: Blood pressure 125/76, pulse of 90, temperature 97.7. He is 96% on room air. General description is a middle-aged male, lying in bed in no distress. RESPIRATORY SYSTEM: Unlabored breathing, clear to auscultation anteriorly. HEART: S1, S2. Regular rate and rhythm. ABDOMEN: Soft, no tenderness. LABS: No new labs have been obtained today. DIAGNOSTIC IMPRESSION AND PLAN: Patient with a stage IV pressure ulcer in this patient who is status post debridement of the wound at [place]. The patient has wound VAC per the bone scan: We still do not have any definite evidence of underlying osteomyelitis, possible source of infection admitted. The patient is currently off antibiotic therapy. Local care to continue with status post surgery, though wound VAC would have been ideal. MMODL / IJN: [id number] /
--- NOTE | 2020-06-12 15:38 | P.PN ---
Subjective Progress Note Date: 06/12/20 59-year-old male admitted with decubitis ulcer present on admission including multiple medical comorbidities as well as morbid obesity, BMI over 50, diabetes type 2, hypertensive heart disease, bilateral venous stasis disease. Patient is sleeping comfortably. He is tolerating diet. Denies any nausea or vomiting. He denies any black stools or blood in his stools in the colostomy. Afebrile. patient seen by infectious disease and they recommended a wound VAC. Patient has refused wound VAC again. Patient continues to have hypokalemia and potassium is being replaced. Magnesium 2.1 06/12/2020 Patient is seen and evaluated in follow-up and continues to refuse IV antibiotic therapy along with application of a wound VAC. Infectious disease is following recommending wound VAC. Patient will be returning to [facility] and a requirement for return with repeat Covid testing which came back positive. Discussed with the staff, social work, and [facility] and they will be able to accommodate the patient returning on . Patient is a resident at [facility]. Patient currently denies any chest pain, shortness of breath, or palpitations. Patient is afebrile. No reports of nausea or vomiting and patient is tolerating diet. Patient continues to refuse antibiotics and when discussing with him about the wound VAC patient states he is having too much pain at this time. During conversation patient continued to request pain medications stating his pain is severe and 10 out of 10. Patient is currently maintained on IV pain medications along with oral pain medications. Objective - Vital Signs Vital signs: Vital Signs Temp 97.7 F 06/12/20 11:30 Pulse 91 06/12/20 11:30 Resp 22 06/12/20 11:30 BP 125/76 06/12/20 11:30 Pulse Ox 96 06/12/20 11:30 Intake & Output 06/11/20 06/12/20 06/12/20 18:59 06:59 18:59 Intake Total 0 1100 400 Output Total 800 Balance 0 300 400 Intake: IV 0 160 Sodium Chloride 0.9% 1, 0 160 000 ml @ 20 mls/hr IV . Q24H [facility] Rx#:[id number] Oral 1100 240 Output: Urine 800 Other: Voiding Method Indwelling Catheter Indwelling Catheter Indwelling Catheter # Voids 0 - Exam VITAL SIGNS: Reviewed. Temp is 97.7F, pulse is 91, respirations are 22, blood pressure is 125/76, oxygen saturation is 96% on room air. GENERAL: Well-developed in no acute distress. HEENT: No sclera icterus. Extraocular movements grossly intact. Moist buccal mucosa. Head is atraumatic, normocephalic. ABDOMEN: Soft. Nondistended. Nontender. Colostomy bag in place with stool present NEUROLOGIC: Alert and oriented. Cranial nerves II through XII grossly intact. Skin: Large stage IV decubitus ulcer, bilateral lower extremity discoloration with crusting noted - Labs CBC & Chem 7: 06/07/20 07:19 06/11/20 10:50 Labs: Abnormal Lab Results - Last 24 Hours (Table) 06/11/20 06/12/20 Range/Units 21:08 09:00 POC Glucose (mg/dL) 108 H (75-99) mg/dL Coronavirus (PCR) Detected A (Not Detectd) Assessment and Plan Assessment: Stage IV Decubitus ulcer Covid 19 positive Morbid obesity due to excess calories, BMI 57.1 Leukocytosis Bilateral lower extremity DVT on Eliquis Normocytic Anemia likely multifactorial with chronic inflammation, Iron deficiency, malnutrition And chronic decubitus ulcer Hypokalemia PLAN: -Continue regular heart healthy diet -No surgical intervention planned -Patient refuses to have EGD and colonoscopy for further anemia workup, patient also continues to refuse IV antibiotic and wound VAC therapy -Will continue to monitor blood sugars and treat accordingly with sliding scale -We'll maintain isolation precautions for positive Covid 19 -Case management and social work following and working on accommodating return to [facility] which the staff is able to accommodate this . -Further recommendations to follow, anticipate discharge in 48 hours.
[2020-06-12 16:44] LABS: Glucose,Whole Blood 93 mg/dL (75-99)
[2020-06-12] MEDS: SODIUM CHLORIDE 0.9% 1,000 ML IV SCH (16:50)
[2020-06-12 20:02] LABS: Glucose,Whole Blood 105 mg/dL (75-99)
[2020-06-12] MEDS: TOPIRAMATE 100 MG TAB PO SCH (20:06)
[2020-06-12] MEDS: MELATONIN 5 MG TABLET PO SCH (20:06)
[2020-06-13] MEDS: PANTOPRAZOLE 40 MG TABLET PO SCH (05:28)
[2020-06-13] MEDS: HYDROcodone/APAP 10-325MG 1 EACH TAB PO PRN ×4 (05:28→21:15)
[2020-06-13 06:29] LABS: Anisocytosis Slight; Basophils # (A) 0.1 k/uL (0-0.2); Basophils % (A) 1 %; Eosinophils # (A) 0.3 k/uL (0-0.7); Eosinophils % (A) 3 %; HCT 28.1 % (39.0-53.0); HGB 9.1 gm/dL (13.0-17.5); Hypochromasia Slight; Lymphocytes # (A) 1.8 k/uL (1.0-4.8); Lymphocytes % (A) 21 %; MCHC 32.5 g/dL (31.0-37.0); MCV 92.4 fL (80.0-100.0); Mean Platelet Volume 7.2; Monocytes # (A) 0.8 k/uL (0-1.0); Monocytes % (A) 9 %; Neutrophils # (A) 5.6 k/uL (1.3-7.7); Neutrophils % (A) 65 %; Platelet Count 308 k/uL (150-450); Poikilocytosis Slight; RBC 3.04 m/uL (4.30-5.90); RDW 16.4 % (11.5-15.5); WBC 8.5 k/uL (3.8-10.6)
[2020-06-13 07:11] LABS: Glucose,Whole Blood 80 mg/dL (75-99)
[2020-06-13] MEDS: INSULIN ASPART (NovoLOG) 100 UNIT/ML VIAL SQ SCH ×4 (07:18→20:42)
[2020-06-13] MEDS: bisacodyL 5 MG TABLET.DR PO SCH (08:34)
[2020-06-13] MEDS: ASPIRIN 81 MG PO SCH (08:35)
[2020-06-13] MEDS: POTASSIUM CHLORIDE ER 10 MEQ TAB.ER.PRT PO SCH (08:35)
[2020-06-13] MEDS: carvediloL 3.125 MG TAB PO SCH ×2 (08:35→17:19)
[2020-06-13] MEDS: MULTIVITAMINS, THERA 1 EACH TAB PO SCH (08:35)
[2020-06-13] MEDS: SPIRONOLACTONE 25 MG TAB PO SCH (08:35)
[2020-06-13] MEDS: ASCORBIC ACID 500 MG TAB PO SCH (08:35)
[2020-06-13] MEDS: BUMETANIDE 1 MG TAB PO SCH (08:36)
[2020-06-13] MEDS: SODIUM HYPOCHLORITE 0.25% 480 ML BOT MISCELLANE SCH (08:37)
[2020-06-13] MEDS: APIXABAN 5 MG TAB PO SCH ×2 (08:39→21:13)
[2020-06-13 09:26] LABS: African American GFR (CKD) 127.6 (60.0-200.0); Anion Gap 8.5 mmol/L (4.00-12.00); BUN/Creat Ratio 13.33 Ratio (12.00-20.00); Calcium 7.5 mg/dL (8.7-10.3); Carbon Dioxide 28.5 mmol/L (21.6-31.8); Non-African American GFR(CKD) 110.1 (60.0-200.0); Potassium 3.3 mmol/L (3.5-5.5)
[2020-06-13 11:26] LABS: Glucose,Whole Blood 94 mg/dL (75-99)
--- NOTE | 2020-06-13 12:46 | P.PN ---
Subjective Progress Note Date: 06/13/20 CHIEF COMPLAINT: Decubitus ulcer HISTORY OF PRESENT ILLNESS: Patient is being followed for his decubitus ulcer. He has refused wound VAC as recommended per ID. His Covid is positive. He is supposed to be discharged to [facility] facility today. Afebrile PHYSICAL EXAM: VITAL SIGNS: Reviewed. GENERAL: Well-developed in no acute distress. HEENT: No sclera icterus. Extraocular movements grossly intact. Moist buccal mucosa. Head is atraumatic, normocephalic. ABDOMEN: Soft. Nondistended. Nontender. Colostomy bag in place with stool present NEUROLOGIC: Alert and oriented. Cranial nerves II through XII grossly intact. Skin: Large stage IV decubitus ulcer ASSESSMENT: 1. Stage IV Decubitus ulcer 2. Morbid obesity due to excess calories, BMI 57.1 3. Leukocytosis 4. Bilateral lower extremity DVT on Eliquis 5. Normocytic Anemia likely multifactorial with chronic inflammation, Iron deficiency, moderate protein calorie malnutrition And chronic decubitus ulcer 6. Hypokalemia 7. Covid positive PLAN: -Continue regular heart healthy diet -No surgical intervention planned -Patient refuses to have EGD and colonoscopy for further anemia workup -Patient stable from surgical standpoint for discharge Physician Obiee Report Developer note has been reviewed by physician. Signing provider agrees with the documented findings, assessment, and plan of care. Objective - Vital Signs Vital signs: Vital Signs Temp 97.9 F 06/13/20 12:19 Pulse 81 06/13/20 12:19 Resp 22 06/13/20 12:19 BP 119/73 06/13/20 12:19 Pulse Ox 96 06/13/20 12:19 Intake & Output 06/12/20 06/13/20 06/13/20 18:59 06:59 18:59 Intake Total 400 660 Output Total 1200 Balance 400 -540 Intake: IV 160 60 Sodium Chloride 0.9% 1, 160 60 000 ml @ 20 mls/hr IV . Q24H [facility] Rx#:[id number] Oral 240 600 Output: Urine 1200 Uretheral (Rodriguez) 1200 Other: Voiding Method Indwelling Catheter Indwelling Catheter Indwelling Catheter - Labs CBC & Chem 7: 06/13/20 05:35 06/13/20 05:35 Labs: Abnormal Lab Results - Last 24 Hours (Table) 06/12/20 06/13/20 06/13/20 Range/Units 20:01 05:35 05:35 RBC 3.04 L (4.30-5.90) m/uL Hgb 9.1 L (13.0-17.5) gm/dL Hct 28.1 L (39.0-53.0) % RDW 16.4 H (11.5-15.5) % Potassium 3.3 L (3.5-5.5) mmol/L BUN 8.0 L (9.0-27.0) mg/dL POC Glucose (mg/dL) 105 H (75-99) mg/dL Calcium 7.5 L (8.7-10.3) mg/dL C-Reactive Protein 11.0 H (0.0-0.8) mg/dL
--- NOTE | 2020-06-13 15:23 | P.PN ---
Subjective Progress Note Date: 06/13/20 59-year-old male admitted with decubitis ulcer present on admission including multiple medical comorbidities as well as morbid obesity, BMI over 50, diabetes type 2, hypertensive heart disease, bilateral venous stasis disease. Patient is sleeping comfortably. He is tolerating diet. Denies any nausea or vomiting. He denies any black stools or blood in his stools in the colostomy. Afebrile. patient seen by infectious disease and they recommended a wound VAC. Patient has refused wound VAC again. Patient continues to have hypokalemia and potassium is being replaced. Magnesium 2.1 06/12/2020 Patient is seen and evaluated in follow-up and continues to refuse IV antibiotic therapy along with application of a wound VAC. Infectious disease is following recommending wound VAC. Patient will be returning to [facility] and a requirement for return with repeat Covid testing which came back positive. Discussed with the staff, social work, and [facility] and they will be able to accommodate the patient returning on . Patient is a resident at [facility]. Patient currently denies any chest pain, shortness of breath, or palpitations. Patient is afebrile. No reports of nausea or vomiting and patient is tolerating diet. Patient continues to refuse antibiotics and when discussing with him about the wound VAC patient states he is having too much pain at this time. During conversation patient continued to request pain medications stating his pain is severe and 10 out of 10. Patient is currently maintained on IV pain medications along with oral pain medications. 06/13/2020 Patient is evaluated in follow-up today with no acute overnight issues. Discussed with social work as [facility] is now unable to accept an accommodate the patient and patient will need to go to an SNF Covid hub site. Patient is demanding another Covid test to ensure he is positive. Patient continues to refuse treatments other than pain medications at this time. Labs were redrawn this morning and within normal limits although potassium slightly low at 3.3 and patient was agreeable to taking 30 meq today. Will recheck labs in the morning. Social work is working on possible hub sites that will accept the patient at this time. Review of systems: Constitutional: Reports fatigue, no reports of fever, or chills, reports generalized pain Cardiovascular: No reports of chest pain or palpitations Respiratory: No reports of shortness of breath or cough GI: No reports of nausea, vomiting, or diarrhea : No reports of dysuria or retention Neurovascular: Reports weakness with no reports of numbness All medications have been reviewed Objective - Vital Signs Vital signs: Vital Signs Temp 97.9 F 06/13/20 12:19 Pulse 81 06/13/20 12:19 Resp 22 06/13/20 12:19 BP 119/73 06/13/20 12:19 Pulse Ox 96 06/13/20 12:19 Intake & Output 06/12/20 06/13/20 06/13/20 18:59 06:59 18:59 Intake Total 400 660 Output Total 1200 Balance 400 -540 Intake: IV 160 60 Sodium Chloride 0.9% 1, 160 60 000 ml @ 20 mls/hr IV . Q24H [facility] Rx#:[id number] Oral 240 600 Output: Urine 1200 Uretheral (Rodriguez) 1200 Other: Voiding Method Indwelling Catheter Indwelling Catheter Indwelling Catheter - Exam VITAL SIGNS: Reviewed. Temp is 97.9F, pulse is 81, respirations are 22, blood pressure is 119/73, oxygen saturation is 96% on room air. GENERAL: Well-developed in no acute distress. HEENT: No sclera icterus. Extraocular movements grossly intact. Moist buccal mucosa. Head is atraumatic, normocephalic. Cardiovascular: S1, S2 are muffled Respiratory: Diminished breath sounds bilaterally with no wheezing or rhonchi noted. ABDOMEN: Soft. Nondistended. Nontender. Colostomy bag in place with stool present NEUROLOGIC: Alert and oriented. Cranial nerves II through XII grossly intact. Skin: Large stage IV decubitus ulcer, bilateral lower extremity discoloration with crusting noted - Labs CBC & Chem 7: 06/13/20 05:35 06/13/20 05:35 Labs: Abnormal Lab Results - Last 24 Hours (Table) 06/12/20 06/13/20 06/13/20 Range/Units 20:01 05:35 05:35 RBC 3.04 L (4.30-5.90) m/uL Hgb 9.1 L (13.0-17.5) gm/dL Hct 28.1 L (39.0-53.0) % RDW 16.4 H (11.5-15.5) % Potassium 3.3 L (3.5-5.5) mmol/L BUN 8.0 L (9.0-27.0) mg/dL POC Glucose (mg/dL) 105 H (75-99) mg/dL Calcium 7.5 L (8.7-10.3) mg/dL C-Reactive Protein 11.0 H (0.0-0.8) mg/dL Assessment and Plan Assessment: Stage IV Decubitus ulcer Covid 19 positive Morbid obesity due to excess calories, BMI 57.1 Leukocytosis Bilateral lower extremity DVT on Eliquis Normocytic Anemia likely multifactorial with chronic inflammation, Iron deficiency, malnutrition And chronic decubitus ulcer Hypokalemia PLAN: -Continue regular heart healthy diet -No surgical intervention planned -Patient refuses to have EGD and colonoscopy for further anemia workup, patient also continues to refuse IV antibiotic and wound VAC therapy -Will continue to monitor blood sugars and treat accordingly with sliding scale -We'll maintain isolation precautions for positive Covid 19 -Case management and social work following and [facility] is unable to accept and accommodate the patient at this time -Further recommendations to follow, anticipate discharge in 48 hours once accepting facility is obtained.
[2020-06-13 17:22] LABS: Glucose,Whole Blood 91 mg/dL (75-99)
[2020-06-13 19:47] LABS: Glucose,Whole Blood 83 mg/dL (75-99)
[2020-06-13] MEDS: TOPIRAMATE 100 MG TAB PO SCH (21:13)
[2020-06-13] MEDS: MELATONIN 5 MG TABLET PO SCH (21:13)
[2020-06-13] MEDS: KETOCONAZOLE 2% SHAMPOO 1 APPLIC/ML TOPICAL SCH (21:14)
--- NOTE | 2020-06-13 23:50 | PN ---
PROGRESS NOTE DATE OF SERVICE: 06/13/2020 REASON FOR FOLLOWUP: 1. Sacral pressure ulcer. 2. Positive COVID-19. INTERVAL HISTORY: The patient is currently afebrile. The patient is breathing comfortably. Patient denies having any chest pain. No shortness of breath or cough. No abdominal pain or worsening pain to his sacral wound area. However, the patient is currently complaining of of his pain medication and wants this to be up. PHYSICAL EXAMINATION: Blood pressure 119/73 with a pulse of 81, temperature 97.9. He is 96% on room air. General description is a middle-aged male lying in bed in no distress. RESPIRATORY SYSTEM: Unlabored breathing, clear to auscultation anteriorly. HEART: S1, S2. Regular rate and rhythm. ABDOMEN: Soft, no tenderness. LABS: Hemoglobin 9.1, white count 8.5. No lymphopenia. Creatinine 0.6. CRP is only 11. LDH is normal. DIAGNOSTIC IMPRESSION AND PLAN: 1. Patient with sacral wound in this patient unfortunately noncompliant and has been refusing all his local wound care as well as investigation. Continue local wound care with the patient is currently allowing. 2. Positive for COVID-19 which is more likely possible left over from a recent infection as the patient clinically not behaving as an active COVID-19 with a normal white count, no lymphopenia or elevated CRP. Continue with the , but no need for any specific therapy for the positive test. MMODL / IJN: [id number] /
[2020-06-14] MEDS: HYDROcodone/APAP 10-325MG 1 EACH TAB PO PRN ×4 (01:19→14:26)
[2020-06-14] MEDS: PANTOPRAZOLE 40 MG TABLET PO SCH (05:20)
[2020-06-14 05:28] VITALS: BP 124/58; PULSE 90; RESP 16; TEMP 98.2
[2020-06-14 07:25] LABS: Glucose,Whole Blood 84 mg/dL (75-99)
[2020-06-14] MEDS: INSULIN ASPART (NovoLOG) 100 UNIT/ML VIAL SQ SCH ×2 (07:39→12:21)
[2020-06-14] MEDS: bisacodyL 5 MG TABLET.DR PO SCH (10:25)
[2020-06-14] MEDS: carvediloL 3.125 MG TAB PO SCH (10:25)
[2020-06-14] MEDS: SPIRONOLACTONE 25 MG TAB PO SCH (10:25)
[2020-06-14] MEDS: ASPIRIN 81 MG PO SCH (10:25)
[2020-06-14] MEDS: POTASSIUM CHLORIDE ER 10 MEQ TAB.ER.PRT PO SCH (10:25)
[2020-06-14] MEDS: APIXABAN 5 MG TAB PO SCH (10:26)
[2020-06-14] MEDS: BUMETANIDE 1 MG TAB PO SCH (10:26)
[2020-06-14] MEDS: MULTIVITAMINS, THERA 1 EACH TAB PO SCH (10:26)
[2020-06-14] MEDS: ASCORBIC ACID 500 MG TAB PO SCH (10:27)
[2020-06-14] MEDS: SODIUM HYPOCHLORITE 0.25% 480 ML BOT MISCELLANE SCH (10:28)
--- NOTE | 2020-06-14 10:51 | P.PN ---
Subjective Progress Note Date: 06/14/20 CHIEF COMPLAINT: Decubitus ulcer HISTORY OF PRESENT ILLNESS: Patient is being followed for his decubitus ulcer. He has refused wound VAC as recommended per ID. His Covid is positive. [facility] is unable to accommodate for patient because he is Covid positive. Social work is working on having patient go to an [facility] Covid hub site. Medicine is also ordered a repeat Covid test. Afebrile. PHYSICAL EXAM: VITAL SIGNS: Reviewed. GENERAL: Well-developed in no acute distress. HEENT: No sclera icterus. Extraocular movements grossly intact. Moist buccal mucosa. Head is atraumatic, normocephalic. ABDOMEN: Soft. Nondistended. Nontender. Colostomy bag in place with stool present NEUROLOGIC: Alert and oriented. Cranial nerves II through XII grossly intact. Skin: Large stage IV decubitus ulcer ASSESSMENT: 1. Stage IV Decubitus ulcer 2. Morbid obesity due to excess calories, BMI 57.1 3. Leukocytosis 4. Bilateral lower extremity DVT on Eliquis 5. Normocytic Anemia likely multifactorial with chronic inflammation, Iron deficiency, moderate protein calorie malnutrition And chronic decubitus ulcer 6. Hypokalemia 7. Covid positive PLAN: -Continue regular heart healthy diet -No surgical intervention planned -Patient refuses to have EGD and colonoscopy for further anemia workup -Patient stable from surgical standpoint for discharge Physician Yard Supervisor note has been reviewed by physician. Signing provider agrees with the documented findings, assessment, and plan of care. Objective - Vital Signs Vital signs: Vital Signs Temp 98.2 F 06/14/20 05:00 Pulse 90 06/14/20 05:00 Resp 16 06/14/20 05:00 BP 124/58 06/14/20 05:00 Pulse Ox 97 06/14/20 05:00 Intake & Output 06/13/20 06/14/20 06/14/20 18:59 06:59 18:59 Intake Total 500 Output Total 900 450 Balance -900 50 Intake: Oral 500 Output: Urine 450 Stool 900 Other: Voiding Method Indwelling Catheter Indwelling Catheter - Labs CBC & Chem 7: 06/13/20 05:35 06/13/20 05:35
--- NOTE | 2020-06-14 11:19 | P.DS ---
Providers Date of admission: 05/24/20 18:03 Expected date of discharge: 06/14/20 Attending physician: Erasmo Quispe Consults: 05/24/20 18:01 Consult Physician Routine Consulting Provider: Darci Biggs Consult Reason/Comments: decubitus ulcer Do you want consulting provider notified?: Yes Consult Physician Routine Consulting Provider: Vikas Escamilla Consult Reason/Comments: decubitus ulcer Do you want consulting provider notified?: Yes 05/25/20 12:11 Consult Physician Urgent Consulting Provider: Stephon Navarro Consult Reason/Comments: b/l dvt Do you want consulting provider notified?: Yes 05/28/20 13:23 Consult Physician Routine Consulting Provider: Vilma White Consult Reason/Comments: EGD, Colonoscopy, GI Eval for iron deficiency Do you want consulting provider notified?: Yes 05/30/20 10:52 Consult to Anesthesia Routine Consulting Provider: Anesthesia,Services Consult Reason/Comments: for pain managment /sedation for bone scan to be completed 05/30/20 13:46 Consult Physician Routine Consulting Provider: Darien Peng Consult Reason/Comments: pt refusing care. evaluation for possible gardian Do you want consulting provider notified?: Yes 06/01/20 14:43 Consult Physician Routine Consulting Provider: Vikas Escamilla Consult Reason/Comments: infected pressure ulcer, r/u OM. pt refusing test Do you want consulting provider notified?: Yes Primary care physician: [facility] Course: Final diagnosis Stage IV decubitus ulcer Morbid obesity due to excess calories with a BMI of 57.1 Leukocytosis Bilateral lower extremity DVT on Eliquis Normocytic anemia likely multifactorial with chronic inflammation, iron deficiency, malnutrition, and chronic decubitus ulcer Hypokalemia Covid 19 positive Discharge disposition Patient is being discharged in a stable condition with guarded prognosis to [facility]. Patient will follow-up with primary care provider in the outpatient setting upon discharge. Patient was instructed to continue with local wound care and also instructed for wound VAC upon readmission to the nursing facility. Total time taken is greater than 35 minutes. History of present illness This is a 59-year-old male who was recently admitted with a decubitus ulcer that was present on admission along with multiple medical comorbidities and morbid obesity and was being closely monitored. Patient was seen and evaluated by infectious disease recommending IV antibiotic treatment and also wound care with a wound VAC to the sacral decubitus ulcer. Patient has been refusing all treatments including IV antibiotics, labs, wound VAC, and medications during this admission. Instructions were provided for wound VAC upon readmission to [facility] if he agrees to this treatment. Patient was also seen and evaluated by GI and surgery although refusing any endoscopic studies for the anemia at this time. Patient does have a positive Covid 19 test. Currently no reports of chest pain, shortness of breath, or palpitations. Patient is afebrile. No reports of nausea or vomiting and patient is tolerating diet. Patient is having pain generalized that is chronic in nature. Patient will be going to [facility] as he is a resident there upon acceptance. On exam vital signs are stable. Temp is 98.2F, pulse is 90, respirations are 16, blood pressure is 124/58, oxygen saturation is 97% on room air. Cardio S1, S2 are muffled. Respiratory system shows diminished breath sounds at the bases with no wheezing or rhonchi noted. Abdomen is soft and obese, and nontender. Nervous system shows diffuse weakness. Please refer to medication reconciliation sheet for a list of medications. Patient Condition at Discharge: Stable Plan - Discharge Summary Discharge Rx Participant: Yes New Discharge Prescriptions: New Apixaban [Eliquis] 5 mg PO BID tab Potassium Chloride ER [K-Dur 10] 30 meq PO DAILY tab.er.prt Continue Spironolactone [Aldactone] 25 mg PO DAILY@0700 Sodium Chloride [Saline Nasal Curtis] 1 spray EA NOSTRIL Q2H PRN PRN Reason: Congestion Nicotine Polacrilex [Nicotine Lozenge] 4 mg BUCCAL Q6H PRN PRN Reason: NICOTINE DEPENDENCE Menthol [Nice Cough Drops] 1 lozenge BUCCAL Q2H PRN PRN Reason: Cough Magnesium Hydroxide [Milk of Magnesia] 2,400 mg PO DAILY PRN PRN Reason: Constipation Ketoconazole 2% Shampoo [Nizoral] 1 applic TOPICAL SUWEFR carvediloL [Coreg] 3.125 mg PO BID@0700,1700 bisacodyL [Dulcolax] 20 mg PO DAILY@0700 Aspirin [[place] Aspirin EC] 81 mg PO DAILY@0700 Acetaminophen Tab [Tylenol] 650 mg PO Q6H PRN MDD 3,000mg/24hr PRN Reason: Fever And/ Or Pain Topiramate [Topamax] 100 mg PO HS@2100 Pantoprazole [Protonix] 40 mg PO DAILY@0600 Multivitamins, Thera [Multivitamin (formulary)] 1 tab PO DAILY@0700 Melatonin 5 mg PO HS@2100 Bumetanide [BUMEX] 1 mg PO DAILY@0700 Ascorbic Acid [Vitamin C] 500 mg PO DAILY@0700 Benzocaine Lozenge 1 lozenge BUCCAL Q2H PRN PRN Reason: Sore Throat Eucerin Lotion 1 applic TOPICAL BID Eucerin Plus Cream 2.5-10% 1 applicate TOPICAL BID Hysept Solution 0.25% 1 applic TOPICAL DAILY Insulin Lispro [Admelog Solostar] See Protocol SQ ACHS@0730,11,16,2100 HYDROcodone/APAP 10-325MG [[place] 10-325] 1 tab PO Q4H PRN #5 tab PRN Reason: pain Discontinued Enoxaparin [Lovenox] 0.4 ml SQ DAILY@0700 Discharge Medication List Acetaminophen Tab [Tylenol] 650 mg PO Q6H PRN MDD 3,000mg/24hr 09/01/19 [History] Aspirin [Arthur Aspirin EC] 81 mg PO DAILY@0700 09/01/19 [History] Ketoconazole 2% Shampoo [Nizoral] 1 applic TOPICAL SUWEFR 09/01/19 [History] Magnesium Hydroxide [Milk of Magnesia] 2,400 mg PO DAILY PRN 09/01/19 [History] Menthol [Nice Cough Drops] 1 lozenge BUCCAL Q2H PRN 09/01/19 [History] Nicotine Polacrilex [Nicotine Lozenge] 4 mg BUCCAL Q6H PRN 09/01/19 [History] Sodium Chloride [Saline Nasal Curtis] 1 spray EA NOSTRIL Q2H PRN 09/01/19 [History] Spironolactone [Aldactone] 25 mg PO DAILY@0700 09/01/19 [History] bisacodyL [Dulcolax] 20 mg PO DAILY@0700 09/01/19 [History] carvediloL [Coreg] 3.125 mg PO BID@0700,1700 09/01/19 [History] Ascorbic Acid [Vitamin C] 500 mg PO DAILY@0705/08/20 [History] Benzocaine Lozenge 1 lozenge BUCCAL Q2H PRN 05/08/20 [History] Bumetanide [BUMEX] 1 mg PO DAILY@0705/08/20 [History] Eucerin Lotion 1 applic TOPICAL BID 05/08/20 [History] Eucerin Plus Cream 2.5-10% 1 applicate TOPICAL BID 05/08/20 [History] Melatonin 5 mg PO HS@209905/08/20 [History] Multivitamins, Thera [Multivitamin (formulary)] 1 tab PO DAILY@69905/08/20 [History] Pantoprazole [Protonix] 40 mg PO DAILY@0605/08/20 [History] Topiramate [Topamax] 100 mg PO HS@209905/08/20 [History] Hysept Solution 0.25% 1 applic TOPICAL DAILY 05/24/20 [History] Insulin Lispro [Admelog Solostar] See Protocol SQ ACHS@0730,11,16,209905/24/20 [History] Apixaban [Eliquis] 5 mg PO BID tab 06/06/20 [Rx] HYDROcodone/APAP 10-325MG [[place] 10-325] 1 tab PO Q4H PRN #5 tab 06/06/20 [Rx] Potassium Chloride ER [K-Dur 10] 30 meq PO DAILY tab.er.prt 06/06/20 [Rx] Follow up Appointment(s)/Referral(s): Jani Cisneros MD [Primary Care Provider] - 1-2 days Patient Instructions/Handouts: Hydrocodone/Acetaminophen (By mouth), Type 2 Diabetes in Adults: New Diagnosis (DC) Activity/Diet/Wound Care/Special Instructions: Lace: 13 - high risk for hospital readmission Patient is going to [facility] facility Activity as tolerated Patient follow-up with primary care provider upon discharge Patient to follow-up at the wound center in the outpatient setting Patient was instructed to continue the wound VAC to the sacrum with settings of 125 mmHg with medium intensity and granny foam black foam dressing. Wound care every Thursday/Thursday/Thursday to the right foot ulcer by applying honey alginate, saline moistened gauze, dry gauze, rolled gauze secured with paper tape and change more frequently if becomes soiled Continue to monitor blood sugars before meals at bedtime and treat accordingly with sliding scale Continue heart healthy consistent carb diet Discharge Disposition: TRANSFER TO SNF/ECF
[2020-06-14 12:08] LABS: Glucose,Whole Blood 87 mg/dL (75-99)
[2020-06-14 16:09] LABS: African American GFR (CKD) 119.7 (60.0-200.0); Calcium 7.6 mg/dL (8.7-10.3); Non-African American GFR(CKD) 103.3 (60.0-200.0); Potassium 3.2 mmol/L (3.5-5.5)
== END 2020-06-14 15:10 | DRG 592 ==
LOC: EC 17:16 → 4SSUR 18:03 → 6NMEDSUR 05-25 12:44
PROVIDERS: ADMIT Hospitalist; ATTEND Hospitalist
DX: L89.154 Pressure ulcer of sacral region, stage 4 (principal); U07.1 COVID-19; I82.403 Acute embolism and thrombosis of unspecified deep veins of lower extremity, bilateral; I13.0 Hypertensive heart and chronic kidney disease with heart failure and stage 1 through stage 4 chronic kidney disease, or unspecified chronic kidney disease; G82.20 Paraplegia, unspecified; N13.8 Other obstructive and reflux uropathy; Z68.43 Body mass index [BMI] 50.0-59.9, adult; I50.32 Chronic diastolic (congestive) heart failure; E44.0 Moderate protein-calorie malnutrition; L03.115 Cellulitis of right lower limb; L03.116 Cellulitis of left lower limb; L89.612 Pressure ulcer of right heel, stage 2; D63.1 Anemia in chronic kidney disease; N18.30 Chronic kidney disease, stage 3 unspecified; E11.621 Type 2 diabetes mellitus with foot ulcer; E11.22 Type 2 diabetes mellitus with diabetic chronic kidney disease; E66.01 Morbid (severe) obesity due to excess calories; J44.9 Chronic obstructive pulmonary disease, unspecified; Z93.3 Colostomy status; Z79.4 Long term (current) use of insulin; E87.6 Hypokalemia; I25.5 Ischemic cardiomyopathy; N40.1 Benign prostatic hyperplasia with lower urinary tract symptoms; E78.5 Hyperlipidemia, unspecified; G47.33 Obstructive sleep apnea (adult) (pediatric); I87.309 Chronic venous hypertension (idiopathic) without complications of unspecified lower extremity; I87.2 Venous insufficiency (chronic) (peripheral); I87.8 Other specified disorders of veins; I25.10 Atherosclerotic heart disease of native coronary artery without angina pectoris; M54.5 Low back pain; I89.0 Lymphedema, not elsewhere classified; F41.9 Anxiety disorder, unspecified; K59.00 Constipation, unspecified; I25.2 Old myocardial infarction; T50.3X6A Underdosing of electrolytic, caloric and water-balance agents, initial encounter; Z91.128 Patient's intentional underdosing of medication regimen for other reason; Z91.19 Patient's noncompliance with other medical treatment and regimen; Z53.20 Procedure and treatment not carried out because of patient's decision for unspecified reasons; Z79.82 Long term (current) use of aspirin; Z79.899 Other long term (current) drug therapy; Z87.891 Personal history of nicotine dependence; Z87.01 Personal history of pneumonia (recurrent); Z95.5 Presence of coronary angioplasty implant and graft; Z74.01 Bed confinement status; Z90.89 Acquired absence of other organs; Z86.718 Personal history of other venous thrombosis and embolism; Z98.890 Other specified postprocedural states; Z71.3 Dietary counseling and surveillance; Z91.048 Other nonmedicinal substance allergy status; Z80.9 Family history of malignant neoplasm, unspecified
CPT/HCPCS: 80048; 80053; 80202; 82565; 82607; 82728; 82746; 83036; 83540; 83550; 83615; 83735; 83921; 84132; 84443; 85025; 85045; 85610; 85652; 85730; 86140; 87635; 93970; 99284

== ENCOUNTER 2020-07-25 14:36 | Inpatient (IN) | payer MEDICARE, OTHER ==
[2020-07-25] MEDS ORDERED: SODIUM CHLORIDE 0.9% 500 ML 500 ML IV SCH (16:00)
[2020-07-25] MEDS ORDERED: cefTRIAXone IN SWFI 1,000 MG/10 ML SYRINGE IVP STA (16:01)
[2020-07-25] MEDS ORDERED: HYDROmorphone 0.5 MG/0.5 ML SYRINGE IVP STA (16:07)
[2020-07-25 16:45] LABS: Anisocytosis Slight; Basophils # (A) 0.1 k/uL (0-0.2); Basophils % (A) 1 %; Eosinophils # (A) 0.2 k/uL (0-0.7); Eosinophils % (A) 1 %; HCT 25.8 % (39.0-53.0); HGB 8.4 gm/dL (13.0-17.5); Hypochromasia Slight; Lymphocytes # (A) 2.1 k/uL (1.0-4.8); Lymphocytes % (A) 11 %; MCH 28.9 pg (25.0-35.0); MCHC 32.5 g/dL (31.0-37.0); MCV 89.1 fL (80.0-100.0); Mean Platelet Volume 6.4; Monocytes # (A) 0.9 k/uL (0-1.0); Monocytes % (A) 5 %; Neutrophils # (A) 15.1 k/uL (1.3-7.7); Neutrophils % (A) 81 %; Platelet Count 589 k/uL (150-450); RBC 2.89 m/uL (4.30-5.90); RDW 18.6 % (11.5-15.5); WBC 18.7 k/uL (3.8-10.6)
[2020-07-25 16:53] LABS: Partial Thromboplastin Time 30.5 sec (22.0-30.0); Prothrombin Time 10.6 sec (9.0-12.0)
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
[2020-07-25 16:56] LABS: Potassium 3.2 mmol/L (3.5-5.1)
[2020-07-25 16:57] LABS: ALT 21 U/L (4-49); AST 27 U/L (17-59); African American GFR (CKD) >90 (>60 ml/min/1.73 sqM); Albumin 1.8 g/dL (3.5-5.0); Alkaline Phosphatase 278 U/L (38-126); Anion Gap 2 mmol/L; Blood Urea Nitrogen 14 mg/dL (9-20); Calcium 7.4 mg/dL (8.4-10.2); Carbon Dioxide 27 mmol/L (22-30); Chloride 107 mmol/L (98-107); Glucose 89 mg/dL (74-99); Non-African American GFR(CKD) >90 (>60 ml/min/1.73 sqM); Sodium 136 mmol/L (137-145); Total Bilirubin 0.5 mg/dL (0.2-1.3); Total Protein 5.6 g/dL (6.3-8.2)
[2020-07-25 17:34] LABS: Appearance,Urine Turbid (Clear); Bacteria,Urine Many /hpf; Bilirubin,Urine Negative (Negative); Blood,Urine Small (Negative); Color,Urine Yellow; Glucose,Urine (UA) Negative (Negative); Ketones,Urine Negative (Negative); Leukocyte Esterase,Urine Large (Negative); Nitrite,Urine Positive (Negative); PH, Urine 5.5 (5.0-8.0); Protein,Urine 1+ (Negative); RBC,Urine 6 /hpf (0-5); Specific Gravity,Urine 1.017 (1.001-1.035); Uric Acid Crystals,Urine Many /hpf; Urobilinogen,Urine <2.0 mg/dL (<2.0); WBC,Urine >182 /hpf (0-5)
[2020-07-25] MEDS ORDERED: VANCOMYCIN IV PER PHARMACY 1 EACH MISC MISCELLANE PRN (18:17)
[2020-07-25] MEDS ORDERED: NALOXONE 0.4 MG/ML 1 ML VIAL IV PRN (18:21)
[2020-07-25] MEDS ORDERED: VANCOMYCIN 2,250 MG in SODIUM CHLORIDE 0.9% 500 ML 500 ML IVPB STA (18:29)
[2020-07-25] MEDS: HYDROmorphone 0.5 MG/0.5 ML SYRINGE IVP PRN ×2 (20:03→23:01)
[2020-07-25] MEDS: SODIUM CHLORIDE 0.9% 1,000 ML IV SCH (20:30)
[2020-07-26] MEDS: oxyCODONE-APAP 7.5-325MG 1 EACH TAB PO SCH ×7 (00:57→23:02)
[2020-07-26] MEDS: PANTOPRAZOLE 40 MG TABLET PO SCH (04:56)
[2020-07-26 07:29] LABS: Glucose,Whole Blood 87 mg/dL (75-99)
[2020-07-26] MEDS: APIXABAN 5 MG TAB PO SCH ×2 (08:07→16:13)
[2020-07-26] MEDS: POTASSIUM CHLORIDE ER 10 MEQ TAB.ER.PRT PO SCH (08:07)
[2020-07-26] MEDS: MULTIVITAMINS, THERA 1 EACH TAB PO SCH (08:07)
[2020-07-26] MEDS: CHOLECALCIFEROL 1,000 UNIT TAB PO SCH (08:08)
[2020-07-26] MEDS: carvediloL 3.125 MG TAB PO SCH ×2 (08:08→16:13)
[2020-07-26] MEDS: ASCORBIC ACID 500 MG TAB PO SCH (08:08)
[2020-07-26] MEDS: bisacodyL 5 MG TABLET.DR PO SCH (08:08)
[2020-07-26] MEDS: SPIRONOLACTONE 25 MG TAB PO SCH (08:08)
[2020-07-26] MEDS: BUMETANIDE 1 MG TAB PO SCH (08:08)
[2020-07-26 11:36] LABS: Glucose,Whole Blood 101 mg/dL (75-99)
[2020-07-26] MEDS: VANCOMYCIN 2,250 MG in SODIUM CHLORIDE 0.9% 500 ML 500 ML IVPB SCH (12:16)
[2020-07-26 12:46] VITALS: BMI 43.0
[2020-07-26] MEDS: HYDROmorphone 0.5 MG/0.5 ML SYRINGE IVP PRN ×2 (14:23→17:48)
[2020-07-26] MEDS ORDERED: LIDOCAINE 1% INJ 10MG/ML (20 ML MDV) SQ ONE (14:52)
--- NOTE | 2020-07-26 15:22 | IR ---
EXAMINATION TYPE: IR cvc insert >=5 years DATE OF EXAM: 07/26/2020 COMPARISON: NONE CLINICAL HISTORY: Infection Needs long-term intravenous access for antibiotics. PROCEDURE: Hand hygiene obtained with soap and water and alcohol-based hand rub. After informed consent, the skin overlying the left cephalic vein was localized with ultrasound and n oted to be compressible and patent. An ultrasound image was obtained and submitted on the patient's chart. The overlying skin was prepped and draped and Lidocaine was used for local anesthesia. A ski n adelaida was made with a scalpel. Access was gained to the vein under ultrasound guidance with a 21 ga uge needle and a 0.018 inch wire was advanced. Access site was dilated with Peel-Away sheath and cat heter tailored to the appropriate length and advanced such that the distal tip is at the cavoatrial j unction. Spot image was obtained verifying placement. Catheter was fixed to the skin and a sterile dressing was placed following hemostasis. Catheter was aspirated and flushed with saline. Patient w as discharged in stable condition without complication.Maximal barrier technique is utilized. Ultras ound image is documented on the chart. Ultrasound used with sterile technique. Fluoro time and fluoroscopic images submitted to document procedure: 23 intraoperative images, 1.1 mi nutes fluoroscopy time IMPRESSION: STATUS POST ULTRASOUND AND FLUOROSCOPIC GUIDED PICC LINE PLACEMENT, READY FOR USE. THIS PROCEDURE WAS PERFORMED BY THE UNDERSIGNED.
[2020-07-26] MEDS: ASPIRIN 81 MG PO SCH (16:12)
[2020-07-26] MEDS: SODIUM CHLORIDE 0.9% 1,000 ML IV SCH (16:50)
[2020-07-26 17:09] LABS: Glucose,Whole Blood 96 mg/dL (75-99)
[2020-07-26] MEDS: MELATONIN 5 MG TABLET PO SCH (20:09)
[2020-07-26] MEDS: TOPIRAMATE 100 MG TAB PO SCH (20:09)
[2020-07-26 20:28] LABS: Glucose,Whole Blood 111 mg/dL (75-99)
[2020-07-27] MEDS: HYDROmorphone 0.5 MG/0.5 ML SYRINGE IVP PRN ×5 (01:16→21:12)
[2020-07-27] MEDS: oxyCODONE-APAP 7.5-325MG 1 EACH TAB PO SCH ×6 (04:45→23:43)
[2020-07-27] MEDS: PANTOPRAZOLE 40 MG TABLET PO SCH (05:39)
[2020-07-27 06:59] LABS: Glucose,Whole Blood 88 mg/dL (75-99)
[2020-07-27 07:48] VITALS: RESP 17
[2020-07-27] MEDS: bisacodyL 5 MG TABLET.DR PO SCH (08:05)
[2020-07-27] MEDS: POTASSIUM CHLORIDE ER 10 MEQ TAB.ER.PRT PO SCH (08:05)
[2020-07-27] MEDS: ASCORBIC ACID 500 MG TAB PO SCH (08:06)
[2020-07-27] MEDS: APIXABAN 5 MG TAB PO SCH ×2 (08:06→16:21)
[2020-07-27] MEDS: carvediloL 3.125 MG TAB PO SCH ×2 (08:06→16:21)
[2020-07-27] MEDS: SPIRONOLACTONE 25 MG TAB PO SCH (08:06)
[2020-07-27] MEDS: CHOLECALCIFEROL 1,000 UNIT TAB PO SCH (08:06)
[2020-07-27] MEDS: MULTIVITAMINS, THERA 1 EACH TAB PO SCH (08:07)
[2020-07-27] MEDS: BUMETANIDE 1 MG TAB PO SCH (08:07)
[2020-07-27 09:39] LABS: African American GFR (CKD) 127.6 (60.0-200.0); Non-African American GFR(CKD) 110.1 (60.0-200.0)
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
[2020-07-27 11:49] LABS: Glucose,Whole Blood 93 mg/dL (75-99)
[2020-07-27] MEDS: VANCOMYCIN 2,250 MG in SODIUM CHLORIDE 0.9% 500 ML 500 ML IVPB SCH (12:28)
[2020-07-27] MEDS: ASPIRIN 81 MG PO SCH (16:20)
[2020-07-27] MEDS: SODIUM CHLORIDE 0.9% 1,000 ML IV SCH (16:21)
[2020-07-27 16:38] LABS: Glucose,Whole Blood 115 mg/dL (75-99)
--- NOTE | 2020-07-27 17:27 | PN ---
PROGRESS NOTE DATE OF SERVICE: 07/27/2020 REASON FOR FOLLOWUP: 1. Sacral pressure ulcer. 2. Urinary tract infection. INTERVAL HISTORY: The patient is currently afebrile. He has been complaining of pain to his sacral wound and wants his medications to be up. Denies having any chest pain, no shortness of breath or cough. No abdominal pain. No diarrhea has been reported. PHYSICAL EXAMINATION: Blood pressure 117/80 with a pulse rate 102, temperature 97.5. He is 96% on room air. General description is a middle-aged male lying in bed in no distress. Respiratory system: Unlabored breathing, clear to auscultation anteriorly. Heart S1, S2. Regular rate and rhythm. ABDOMEN: Soft, no tenderness. Extremities with diffuse swelling, no redness. LABS: Creatinine 0.6. Urine showing a Gram-negative. DIAGNOSTIC IMPRESSION AND PLAN: Patient with stage IV sacral pressure ulcer with significant slough tissue and needs extensive debridement and possible wound VAC application which the patient has refused in the past and surgical team was unable to provide the service to him here. The patient should be transferred to tertiary care for more aggressive local wound care and debridement. The patient is currently covered with vancomycin, Rocephin to continue while monitoring clinical course closely. Overall prognosis remains to be guarded. MMODL / IJN: [id number] /
[2020-07-27] MEDS: TOPIRAMATE 100 MG TAB PO SCH (19:57)
[2020-07-27] MEDS: MELATONIN 5 MG TABLET PO SCH (19:57)
[2020-07-27 20:36] LABS: Glucose,Whole Blood 99 mg/dL (75-99)
[2020-07-28] MEDS: HYDROmorphone 0.5 MG/0.5 ML SYRINGE IVP PRN ×4 (03:26→15:29)
[2020-07-28] MEDS: oxyCODONE-APAP 7.5-325MG 1 EACH TAB PO SCH ×4 (03:50→15:29)
[2020-07-28] MEDS: PANTOPRAZOLE 40 MG TABLET PO SCH (05:33)
[2020-07-28 06:56] LABS: Glucose,Whole Blood 92 mg/dL (75-99)
[2020-07-28] MEDS: bisacodyL 5 MG TABLET.DR PO SCH (08:05)
[2020-07-28] MEDS: APIXABAN 5 MG TAB PO SCH (08:05)
[2020-07-28] MEDS: POTASSIUM CHLORIDE ER 10 MEQ TAB.ER.PRT PO SCH (08:06)
[2020-07-28] MEDS: CHOLECALCIFEROL 1,000 UNIT TAB PO SCH (08:06)
[2020-07-28] MEDS: ASCORBIC ACID 500 MG TAB PO SCH (08:07)
[2020-07-28] MEDS: SPIRONOLACTONE 25 MG TAB PO SCH (08:07)
[2020-07-28] MEDS: carvediloL 3.125 MG TAB PO SCH (08:07)
[2020-07-28] MEDS: MULTIVITAMINS, THERA 1 EACH TAB PO SCH (08:08)
[2020-07-28] MEDS: BUMETANIDE 1 MG TAB PO SCH (08:13)
[2020-07-28 09:34] LABS: African American GFR (CKD) 127.6 (60.0-200.0); Non-African American GFR(CKD) 110.1 (60.0-200.0)
[2020-07-28 10:52] LABS: Anisocytosis Slight; HGB 7.2 gm/dL (13.0-17.5); Hypochromasia Moderate; MCH 29.9 pg (25.0-35.0); MCHC 32.8 g/dL (31.0-37.0); MCV 91.1 fL (80.0-100.0); Mean Platelet Volume 6.8; Platelet Count 425 k/uL (150-450); RBC 2.41 m/uL (4.30-5.90); RDW 18.7 % (11.5-15.5); WBC 14.2 k/uL (3.8-10.6)
[2020-07-28 11:01] LABS: African American GFR (CKD) >90 (>60 ml/min/1.73 sqM); Anion Gap 0 mmol/L; Blood Urea Nitrogen 10 mg/dL (9-20); Calcium 7.4 mg/dL (8.4-10.2); Carbon Dioxide 27 mmol/L (22-30); Chloride 109 mmol/L (98-107); Glucose 88 mg/dL (74-99); Non-African American GFR(CKD) >90 (>60 ml/min/1.73 sqM); Potassium 3.4 mmol/L (3.5-5.1); Sodium 136 mmol/L (137-145)
[2020-07-28 11:31] LABS: Glucose,Whole Blood 96 mg/dL (75-99)
[2020-07-28 11:39] VITALS: PULSE 103
[2020-07-28] MEDS: VANCOMYCIN 2,250 MG in SODIUM CHLORIDE 0.9% 500 ML 500 ML IVPB SCH (11:41)
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
--- NOTE | 2020-07-28 13:58 | P.PN ---
Subjective Progress Note Date: 07/27/20 Principal diagnosis: Sepsis Large sacral infected decubitus ulcer UTI Morbid obesity Chronic lower extremity edema Hypertension hypertensive cardiovascular disease 07/27/2020, patient seen eval examined labs reviewed medications reviewed, pain issues addressed, care plan discussed with infectious disease services, he has evaluated the sacral wound, needs wound VAC and the [place] and transferred to [facility] Patient is a 59-year-old morbidly obese male with very complex past medical history patient transfer from [facility] for sepsis evalu ation, patient has a large history is for sacral decubitus ulcer on his buttocks which was not healing patient thought to be septic from mid thigh have discussed this case with Dr. Escamilla from infectious disease services he expressed that patient need wound VAC and wound cleaning due to large size and complex nature expertise is not available patient will likely need to be transferred to [facility], on specific questioning patient does complaining of pain in the buttocks as well as lower extremities, covert testing is negative, patient has been placed on broad-spectrum antibiotics by infectious disease and discontinue and continued on his home medications, patient primary urine culture is positive for gram-negative bacilli blood cultures no growth so far wound culture results are pending, urine is positive for E. coli and Klebsiella, patient is being treated with Rocephin Objective - Vital Signs Vital signs: Vital Signs Temp 97.5 F L 07/27/20 07:47 Pulse 102 H 07/27/20 08:00 Resp 17 07/27/20 08:00 BP 117/80 07/27/20 07:47 Pulse Ox 96 07/27/20 07:47 Intake & Output 07/26/20 07/27/20 07/27/20 18:59 06:59 18:59 Output Total 1200 400 Balance -1200 -400 Weight 136.078 kg Output: Urine 1200 400 Other: Voiding Method Indwelling Catheter Indwelling Catheter Indwelling Catheter - Exam - Constitutional General appearance: morbidly obese - EENT Eyes: PERRLA Ears: bilateral: normal - Neck Carotids: bilateral: upstroke normal Thyroid: bilateral: normal size - Respiratory Respiratory: bilateral: CTA - Cardiovascular Rhythm: regular Heart sounds: normal: S1, S2 - Gastrointestinal General gastrointestinal: distended - Neurologic Neurologic: CNII-XII intact - Musculoskeletal Musculoskeletal: generalized weakness, strength equal bilaterally - Psychiatric Psychiatric: A&O x's 3, appropriate affect, intact judgment & insight - Labs CBC & Chem 7: 07/28/20 10:04 07/28/20 10:04 Labs: Abnormal Lab Results - Last 24 Hours (Table) 07/26/20 Range/Units 20:26 POC Glucose (mg/dL) 111 H (75-99) mg/dL Microbiology - Last 24 Hours (Table) 07/25/20 17:02 Urine Culture - Preliminary Urine,Voided Gram Neg Bacilli 07/25/20 16:30 Blood Culture - Preliminary Blood No Growth after 24 hours 07/25/20 16:25 Blood Culture - Preliminary Blood No Growth after 24 hours Assessment and Plan Assessment: Sepsis Large sacral decubitus ulcer UTI Morbid obesity Chronic lower extremity edema Hypertension hypertensive cardiovascular disease Plan: Local wound care, patient likely needs to be transferred to tertiary care center as per recommendation of infectious disease services Broad-spectrum antibiotics with IV vancomycin and Rocephin DVT prophylaxis Continue home medications PT OT evaluation Pain control Further recommendations pending plan of care as per clinical response the patient Time with Patient: Greater than 30
--- NOTE | 2020-07-28 14:07 | P.DS ---
Providers Date of admission: 07/25/20 17:52 Expected date of discharge: 07/28/20 Attending physician: Reza Luevano Consults: 07/25/20 18:20 Consult Physician Routine Consulting Provider: Vikas Escamilla Consult Reason/Comments: Decubitus ulcer, leukocytosis Do you want consulting provider notified?: Yes Primary care physician: Andres Winters [facility] Course: 07/28/2019, patient seen eval reexamined, labs reviewed medications reviewed care plan discussed hemoglobin slightly running on the lower side overall stable with chronic anemia, discussed with the infectious disease again, also discussed with [facility], patient will be transferred over there 07/27/2020, patient seen eval examined labs reviewed medications reviewed, pain issues addressed, care plan discussed with infectious disease services, he has evaluated the sacral wound, needs wound VAC and wound Debridement and transferred to tertiary care center Patient is a 59-year-old morbidly obese male with very complex past medical history patient transfer from [facility] for sepsis evaluation, patient has a large history is for sacral decubitus ulcer on his buttocks which was not healing patient thought to be septic from mid thigh have discussed this case with Dr. Escamilla from infectious disease services he expressed that patient need wound VAC and wound cleaning due to large size and complex nature expertise is not available patient will likely need to be transferred to tertiary care center, on specific questioning patient does complaining of pain in the buttocks as well as lower extremities, covert testing is negative, patient has been placed on broad-spectrum antibiotics by infectious disease and discontinue and continued on his home medications, patient primary urine culture is positive for gram-negative bacilli blood cultures no growth so far wound culture results are pending, urine is positive for E. coli and Klebsiella, patient is being treated with Rocephin - Vital Signs Vital signs: Vital Signs Temp 97.5 F L 07/27/20 07:47 Pulse 102 H 07/27/20 08:00 Resp 17 07/27/20 08:00 BP 117/80 07/27/20 07:47 Pulse Ox 96 07/27/20 07:47 Intake & Output 07/26/20 07/27/20 07/27/20 18:59 06:59 18:59 Output Total 1200 400 Balance -1200 -400 Weight 136.078 kg Output: Urine 1200 400 Other: Voiding Method Indwelling Catheter Indwelling Catheter Indwelling Catheter - Exam - Constitutional General appearance: morbidly obese - EENT Eyes: PERRLA Ears: bilateral: normal - Neck Carotids: bilateral: upstroke normal Thyroid: bilateral: normal size - Respiratory Respiratory: bilateral: CTA - Cardiovascular Rhythm: regular Heart sounds: normal: S1, S2 - Gastrointestinal General gastrointestinal: distended - Neurologic Neurologic: CNII-XII intact - Musculoskeletal Musculoskeletal: generalized weakness, strength equal bilaterally - Psychiatric Psychiatric: A&O x's 3, appropriate affect, intact judgment & insight 07/28/20 10:04 07/28/20 10:04 Labs: Abnormal Lab Results - Last 24 Hours (Table) 07/26/20 Range/Units 20:26 POC Glucose (mg/dL) 111 H (75-99) mg/dL Microbiology - Last 24 Hours (Table) 07/25/20 17:02 Urine Culture - Preliminary Urine,Voided Gram Neg Bacilli 07/25/20 16:30 Blood Culture - Preliminary Blood No Growth after 24 hours 07/25/20 16:25 Blood Culture - Preliminary Blood No Growth after 24 hours Assessment: Sepsis Large sacral decubitus ulcer UTI Chronic anemia Chronic lower extremity cellulitis Morbid obesity Chronic lower extremity edema Hypertension hypertensive cardiovascular disease Patient Condition at Discharge: Fair Plan - Discharge Summary New Discharge Prescriptions: New cefTRIAXone [Rocephin] 2 gm IVPB DAILY vial Vancomycin 2,250 mg IVPB Q24H vial Continue Spironolactone [Aldactone] 25 mg PO DAILY@0730 Sodium Chloride [Saline Nasal [place]] 1 spray EA NOSTRIL Q2H PRN PRN Reason: Congestion Nicotine Polacrilex [Nicotine Lozenge] 4 mg BUCCAL Q6H PRN PRN Reason: NICOTINE DEPENDENCE Menthol [Nice Cough Drops] 1 lozenge BUCCAL Q2H PRN PRN Reason: Cough/SORE THROAT Magnesium Hydroxide [Milk of Magnesia] 2,400 mg PO DAILY PRN PRN Reason: Constipation Ketoconazole 2% Shampoo [Nizoral] 1 applic TOPICAL SUWEFR carvediloL [Coreg] 3.125 mg PO BID@0700,1700 bisacodyL [Dulcolax] 20 mg PO DAILY@0700 Aspirin [[place] Aspirin EC] 81 mg PO DAILY@1700 Acetaminophen Tab [Tylenol] 650 mg PO Q6H PRN MDD 3,000mg/24hr PRN Reason: Fever And/ Or Pain Topiramate [Topamax] 100 mg PO HS@2100 Pantoprazole [Protonix] 40 mg PO DAILY@0600 Multivitamins, Thera [Multivitamin (formulary)] 1 tab PO DAILY@0700 Melatonin 5 mg PO HS@2100 Bumetanide [BUMEX] 1 mg PO DAILY@0700 Ascorbic Acid [Vitamin C] 500 mg PO DAILY@0700 Benzocaine Lozenge 1 lozenge BUCCAL Q2H PRN PRN Reason: Sore Throat Eucerin Lotion 1 applic TOPICAL BID Eucerin Plus Cream 2.5-10% 1 applicate TOPICAL BID Insulin Lispro [Admelog Solostar] See Protocol SQ ACHS@0730,11,16,2100 Potassium Chloride ER [K-Dur 10] 30 meq PO DAILY tab.er.prt SILVER sulfADIAZINE CREAM [Silvadene Cream] 1 applic TOPICAL BID Lidocaine 2% Gel [Xylocaine Jelly 2%] 1 applic URETHRAL DAILY PRN PRN Reason: Pain Control HYDROmorphone [Dilaudid] 2 mg PO DAILY PRN PRN Reason: Pain Biotene Dry Mouth Liquid 15 ml PO Q4H PRN PRN Reason: Dry Mouth oxyCODONE-APAP 7.5-325MG [Percocet 7.5-325 mg] 1 tab PO Q4HR Apixaban [Eliquis] 5 mg PO BID@0700,1700 Cholecalciferol [Vitamin D3 (25 Mcg = 1000 Iu)] 5,000 unit PO DAILY@0700 Discharge Medication List Acetaminophen Tab [Tylenol] 650 mg PO Q6H PRN MDD 3,000mg/24hr 09/01/19 [History] Aspirin [[place] Aspirin EC] 81 mg PO DAILY@1700 09/01/19 [History] Ketoconazole 2% Shampoo [Nizoral] 1 applic TOPICAL SUWEFR 09/01/19 [History] Magnesium Hydroxide [Milk of Magnesia] 2,400 mg PO DAILY PRN 09/01/19 [History] Menthol [Nice Cough Drops] 1 lozenge BUCCAL Q2H PRN 09/01/19 [History] Nicotine Polacrilex [Nicotine Lozenge] 4 mg BUCCAL Q6H PRN 09/01/19 [History] Sodium Chloride [Saline Nasal [place]] 1 spray EA NOSTRIL Q2H PRN 09/01/19 [History] Spironolactone [Aldactone] 25 mg PO DAILY@0730 09/01/19 [History] bisacodyL [Dulcolax] 20 mg PO DAILY@0700 09/01/19 [History] carvediloL [Coreg] 3.125 mg PO BID@0700,1700 09/01/19 [History] Ascorbic Acid [Vitamin C] 500 mg PO DAILY@0700 05/08/20 [History] Benzocaine Lozenge 1 lozenge BUCCAL Q2H PRN 05/08/20 [History] Bumetanide [BUMEX] 1 mg PO DAILY@69905/08/20 [History] Eucerin Lotion 1 applic TOPICAL BID 05/08/20 [History] Eucerin Plus Cream 2.5-10% 1 applicate TOPICAL BID 05/08/20 [History] Melatonin 5 mg PO HS@209905/08/20 [History] Multivitamins, Thera [Multivitamin (formulary)] 1 tab PO DAILY@0705/08/20 [History] Pantoprazole [Protonix] 40 mg PO DAILY@0605/08/20 [History] Topiramate [Topamax] 100 mg PO HS@209905/08/20 [History] Insulin Lispro [Admelog Solostar] See Protocol SQ ACHS@0730,11,16,2100 05/24/20 [History] Potassium Chloride ER [K-Dur 10] 30 meq PO DAILY tab.er.prt 06/06/20 [Rx] Apixaban [Eliquis] 5 mg PO BID@0700,1700 07/25/20 [History] Biotene Dry Mouth Liquid 15 ml PO Q4H PRN 07/25/20 [History] Cholecalciferol [Vitamin D3 (25 Mcg = 1000 Iu)] 5,000 unit PO DAILY@0700 07/25/20 [History] HYDROmorphone [Dilaudid] 2 mg PO DAILY PRN 07/25/20 [History] Lidocaine 2% Gel [Xylocaine Jelly 2%] 1 applic URETHRAL DAILY PRN 07/25/20 [History] SILVER sulfADIAZINE CREAM [Silvadene Cream] 1 applic TOPICAL BID 07/25/20 [History] oxyCODONE-APAP 7.5-325MG [Percocet 7.5-325 mg] 1 tab PO Q4HR 07/25/20 [History] Vancomycin 2,250 mg IVPB Q24H vial 07/28/20 [Rx] cefTRIAXone [Rocephin] 2 gm IVPB DAILY vial 07/28/20 [Rx] Follow up Appointment(s)/Referral(s): Andres Winters MD [Primary Care Provider] - 1-2 days [facility], [NON-STAFF] - As Needed Discharge Disposition: OTHER INSTITUTION NOT DEFINED
[2020-07-28 14:40] VITALS: BP 122/75; TEMP 97.6
[2020-07-29] MEDS ORDERED: VANCOMYCIN TROUGH DUE 1 EACH MISC MISCELLANE ONE (11:00)
== END 2020-07-28 16:01 | disposition short-term general hospital (02) | DRG 871 ==
LOC: EC 14:36 → 4SSUR 17:52
PROVIDERS: ADMIT Internal Medicine Sleep Medicine; ATTEND Internal Medicine Sleep Medicine
PROC: 02HV33Z Insertion of Infusion Device into Superior Vena Cava, Percutaneous Approach (ICD-10-PCS; principal; 2020-07-26 16:10)
DX: A41.9 Sepsis, unspecified organism (principal); L89.324 Pressure ulcer of left buttock, stage 4; L89.314 Pressure ulcer of right buttock, stage 4; L89.154 Pressure ulcer of sacral region, stage 4; N13.8 Other obstructive and reflux uropathy; L03.119 Cellulitis of unspecified part of limb; N39.0 Urinary tract infection, site not specified; Z43.3 Encounter for attention to colostomy; D63.1 Anemia in chronic kidney disease; E11.22 Type 2 diabetes mellitus with diabetic chronic kidney disease; N18.30 Chronic kidney disease, stage 3 unspecified; I13.10 Hypertensive heart and chronic kidney disease without heart failure, with stage 1 through stage 4 chronic kidney disease, or unspecified chronic kidney disease; I50.9 Heart failure, unspecified; J44.9 Chronic obstructive pulmonary disease, unspecified; E66.01 Morbid (severe) obesity due to excess calories; Z79.4 Long term (current) use of insulin; Z20.828 Contact with and (suspected) exposure to other viral communicable diseases; B96.20 Unspecified Escherichia coli [E. coli] as the cause of diseases classified elsewhere; B96.1 Klebsiella pneumoniae [K. pneumoniae] as the cause of diseases classified elsewhere; N40.1 Benign prostatic hyperplasia with lower urinary tract symptoms; G47.33 Obstructive sleep apnea (adult) (pediatric); F41.9 Anxiety disorder, unspecified; I87.303 Chronic venous hypertension (idiopathic) without complications of bilateral lower extremity; I25.10 Atherosclerotic heart disease of native coronary artery without angina pectoris; K59.00 Constipation, unspecified; I25.2 Old myocardial infarction; Z91.19 Patient's noncompliance with other medical treatment and regimen; Z79.01 Long term (current) use of anticoagulants; Z79.82 Long term (current) use of aspirin; Z79.891 Long term (current) use of opiate analgesic; Z79.899 Other long term (current) drug therapy; Z87.891 Personal history of nicotine dependence; Z87.09 Personal history of other diseases of the respiratory system; Z95.5 Presence of coronary angioplasty implant and graft; Z90.89 Acquired absence of other organs; Z98.890 Other specified postprocedural states; Z91.048 Other nonmedicinal substance allergy status
CPT/HCPCS: 36415; 36573; 80048; 80053; 81001; 82565; 83605; 85025; 85027; 85610; 85730; 87040; 87070; 87077; 87086; 87186; 87205; 87635; 93005; 96361; 96365; 96375; 96376; 99285

== ENCOUNTER 2020-09-05 13:29 | Inpatient (IN) | payer MEDICARE, OTHER ==
[2020-09-05] MEDS ORDERED: polyethylene glycoL 3350 17 GM POWD.PACK PO PRN (17:40)
[2020-09-05] MEDS ORDERED: ONDANSETRON 4 MG/2 ML VIAL IVP PRN (17:43)
[2020-09-05] MEDS ORDERED: PIPERACILLIN TAZOBACTAM 2.25 GM IV SCH (17:45)
[2020-09-05] MEDS: PANTOPRAZOLE 40 MG TABLET PO SCH (18:11)
[2020-09-05] MEDS: PIPERACILLIN-TAZOBACTAM 3.375 GM in SODIUM CHLORIDE 0.9% 100 ML IVPB SCH (18:12)
[2020-09-05 20:28] LABS: Glucose,Whole Blood 142 mg/dL (75-99)
[2020-09-05] MEDS: ATORVASTATIN 40 MG TAB PO SCH (20:36)
[2020-09-05] MEDS: INSULIN ASPART (NovoLOG) 100 UNIT/ML VIAL SQ SCH (20:36)
[2020-09-05] MEDS: GABAPENTIN 300 MG CAP PO SCH (20:36)
[2020-09-05] MEDS: HYDROmorphone 2 MG TAB PO PRN (20:58)
[2020-09-05 21:39] LABS: Anisocytosis Slight; Basophils % (A) 0 %; Eosinophils # (A) 0.3 k/uL (0-0.7); Eosinophils % (A) 2 %; HCT 25.5 % (39.0-53.0); HGB 7.8 gm/dL (13.0-17.5); Hypochromasia Marked; Lymphocytes # (A) 1.6 k/uL (1.0-4.8); Lymphocytes % (A) 10 %; MCH 30.4 pg (25.0-35.0); MCHC 30.6 g/dL (31.0-37.0); Macrocytosis Slight; Mean Platelet Volume 7.2; Monocytes # (A) 0.7 k/uL (0-1.0); Monocytes % (A) 5 %; Neutrophils # (A) 12.6 k/uL (1.3-7.7); Neutrophils % (A) 82 %; Platelet Count 305 k/uL (150-450); RBC 2.56 m/uL (4.30-5.90); WBC 15.5 k/uL (3.8-10.6)
[2020-09-05 21:40] LABS: MCV 99.6 fL (80.0-100.0)
[2020-09-05 21:42] LABS: ALT 31 U/L (4-49); AST 82 U/L (17-59); African American GFR (CKD) >90 (>60 ml/min/1.73 sqM); Albumin 1.8 g/dL (3.5-5.0); Albumin/Globulin Ratio 0.5; Alkaline Phosphatase 300 U/L (38-126); Anion Gap 3 mmol/L; Blood Urea Nitrogen 12 mg/dL (9-20); Calcium 7.1 mg/dL (8.4-10.2); Carbon Dioxide 29 mmol/L (22-30); Chloride 100 mmol/L (98-107); Globulin 3.9 g/dL; Glucose 132 mg/dL (74-99); Magnesium 1.9 mg/dL (1.6-2.3); Non-African American GFR(CKD) >90 (>60 ml/min/1.73 sqM); Potassium 3.5 mmol/L (3.5-5.1); Sodium 132 mmol/L (137-145); Total Bilirubin 0.5 mg/dL (0.2-1.3); Total Protein 5.7 g/dL (6.3-8.2)
[2020-09-05] MEDS: ACETAMINOPHEN TAB 325 MG TAB PO PRN (22:38)
[2020-09-05] MEDS: MELATONIN 5 MG TABLET PO SCH (22:39)
[2020-09-06] MEDS: PIPERACILLIN-TAZOBACTAM 3.375 GM in SODIUM CHLORIDE 0.9% 100 ML IVPB SCH ×3 (02:20→17:32)
[2020-09-06 07:12] LABS: Glucose,Whole Blood 92 mg/dL (75-99)
[2020-09-06] MEDS: INSULIN ASPART (NovoLOG) 100 UNIT/ML VIAL SQ SCH ×4 (07:26→21:58)
[2020-09-06] MEDS: FERROUS SULFATE 325 MG TAB PO SCH ×2 (08:19→17:10)
[2020-09-06] MEDS: ASCORBIC ACID 500 MG TAB PO SCH (08:19)
[2020-09-06] MEDS: LIDOCAINE 5% PATCH TOPICAL SCH (08:19)
[2020-09-06] MEDS ORDERED: PROSTAT SUGAR FREE PO SCH (09:00)
[2020-09-06] MEDS: ASPIRIN 81 MG PO SCH (09:35)
[2020-09-06] MEDS: BUMETANIDE 1 MG TAB PO SCH (09:35)
[2020-09-06] MEDS: MAGNESIUM OXIDE 400 MG TAB PO SCH ×2 (09:37→17:10)
[2020-09-06] MEDS: GABAPENTIN 300 MG CAP PO SCH ×3 (09:37→20:02)
[2020-09-06] MEDS: PANTOPRAZOLE 40 MG TABLET PO SCH (09:37)
[2020-09-06] MEDS: carvediloL 3.125 MG TAB PO SCH ×2 (09:37→17:19)
[2020-09-06] MEDS: POTASSIUM CHLORIDE ER 20 MEQ TAB.ER PO SCH ×2 (09:38→17:10)
[2020-09-06] MEDS: SPIRONOLACTONE 25 MG TAB PO SCH (09:38)
[2020-09-06 12:22] LABS: Glucose,Whole Blood 114 mg/dL (75-99)
[2020-09-06 12:30] VITALS: RESP 20
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
[2020-09-06] MEDS: HYDROmorphone 2 MG TAB PO PRN ×2 (15:39→20:01)
[2020-09-06 15:51] VITALS: BMI 57.5
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
[2020-09-06] MEDS: ENOXAPARIN 40 MG/0.4 ML SYRINGE SQ SCH (17:10)
[2020-09-06 17:30] LABS: Glucose,Whole Blood 114 mg/dL (75-99)
--- NOTE | 2020-09-06 18:32 | CONS ---
CONSULTATION DATE OF SERVICE: 09/06/2020 REASON FOR CONSULTATION: Stage IV sacral pressure ulcer. HISTORY OF PRESENT ILLNESS: The patient is a 60-year-old morbidly obese male with a past medical history significant for chronic nonhealing wound to the sacral area which the patient has had for more than a year now. The patient has been previously treated in an outside facility, where he had a diverting colostomy in order to heal his wound. The patient has had multiple hospitalizations at this facility. The patient has been evaluated by Surgery, who has been unable to do any surgical debridement and has recommended that the patient be transferred to [facility], where the patient was last sent on July 26, 2020. We are unable to find out what happened to the patient at that facility. The patient subsequently has been a resident of [facility]. However, recently he has been transferred to [facility]. The patient did not like being there and called EMS, and the patient was taken to the local ER. Subsequently the patient was sent here for further management. The patient has been shouting in pain and has been asking for more pain medication. The patient has been refusing to be turned for examination of his sacral wound. When asked specifically about the pain, he describes it to be sharp and almost 10/10 with no radiation. The patient denies any fever or chills, and no fever has been recorded during this hospital stay. The patient did have a white count of 15.5 and normal kidney function. The patient has been empirically started on Zosyn. Infectious Disease was consulted for further management of antibiotic therapy. REVIEW OF SYSTEMS: Positive points have been mentioned in HPI. Rest of the systems are negative. PAST MEDICAL HISTORY: Coronary artery disease, angina, heart failure, COPD, diabetes mellitus, hypertension, sleep apnea, stage IV sacral pressure ulcer. PAST SURGICAL HISTORY: Heart catheterization with stent, tonsillectomy, surgical debridement of his sacral wound and diverting colostomy. SOCIAL HISTORY: Currently a [facility] resident. He does have a history of smoking; quit back in 2017. FAMILY HISTORY: No pertinent findings noticed. ALLERGIES: ADHESIVE TAPE. MEDICATIONS: The patient is currently on Aldactone, K-Dur, MiraLAX, Zosyn, Protonix, oxycodone, Zofran, melatonin, magnesium oxide, NovoLog, Dilaudid, iron sulfate, Coreg, Bumex, Lipitor, aspirin, vitamin C, Tylenol. PHYSICAL EXAMINATION: His blood pressure 119/72 with a pulse of 99, temperature 97.7. He is 97% on 2 L nasal cannula. General description is a middle-aged male lying in bed in no distress. No tachypnea or accessory muscle of respiration use. HEENT EXAMINATION: No pallor or scleral icterus. Oral mucous membrane is dry. NECK: Trachea is central. No thyromegaly. LUNGS: Unlabored breathing. Decreased intensity of breath sounds. No wheeze. HEART: S1, S2. Regular rate and rhythm. ABDOMEN: Soft. No tenderness. EXAMINATION OF SACRAL WOUND: The patient did have a large stage IV sacral pressure ulcer with necrotic tissue at the base foul-smelling. EXTREMITIES: Diffuse swelling of lower extremities bilaterally. No redness. Neurologically the patient is awake, alert, oriented x3. LABS: BUN of 12, creatinine 0.81. Hemoglobin 7.9, white count 15.5. DIAGNOSTIC IMPRESSION AND PLAN: Patient with a stage IV sacral pressure ulcer with underlying osteomyelitis. The patient did have significant necrotic tissue. The patient did have a large wound and needs surgical debridement to take all the necrotic tissue away and more aggressive local wound care such as wound V.A.C. Unfortunately the patient has refused in the past. Local wound care with a wound V.A.C. would really help him, and he has refused in the past any x-rays or a bone scan, with the surgical service unable to help the patient here in this hospital. Recommend that the patient be transferred to tertiary care for more aggressive local wound care, deep culture biopsy and antibiotic on the basis of those cultures. This has been communicated to the patient's nurse as well as the admitting team. PLAN: 1. May continue Zosyn while waiting for the patient to be transferred from this facility. 2. Patient does have General Surgery as well as wound care team. Will defer local wound care to them. 3. Thank you for this consultation. MMODL / IJN: [id number] /
[2020-09-06] MEDS: ATORVASTATIN 40 MG TAB PO SCH (20:01)
[2020-09-06] MEDS: MELATONIN 5 MG TABLET PO SCH (20:01)
[2020-09-06 20:19] LABS: Glucose,Whole Blood 154 mg/dL (75-99)
[2020-09-07] MEDS: PIPERACILLIN-TAZOBACTAM 3.375 GM in SODIUM CHLORIDE 0.9% 100 ML IVPB SCH ×2 (02:18→11:31)
[2020-09-07] MEDS: HYDROmorphone 2 MG TAB PO PRN ×3 (03:55→11:30)
[2020-09-07] MEDS: ACETAMINOPHEN TAB 325 MG TAB PO PRN (04:20)
[2020-09-07 06:58] LABS: Glucose,Whole Blood 117 mg/dL (75-99)
[2020-09-07] MEDS: SPIRONOLACTONE 25 MG TAB PO SCH (07:52)
[2020-09-07] MEDS: GABAPENTIN 300 MG CAP PO SCH ×2 (07:52→12:48)
[2020-09-07] MEDS: ASCORBIC ACID 500 MG TAB PO SCH (07:53)
[2020-09-07] MEDS: ASPIRIN 81 MG PO SCH (07:57)
[2020-09-07] MEDS: MAGNESIUM OXIDE 400 MG TAB PO SCH (07:57)
[2020-09-07] MEDS: PANTOPRAZOLE 40 MG TABLET PO SCH (07:58)
[2020-09-07] MEDS: POTASSIUM CHLORIDE ER 20 MEQ TAB.ER PO SCH (07:58)
[2020-09-07] MEDS: ENOXAPARIN 40 MG/0.4 ML SYRINGE SQ SCH (07:58)
[2020-09-07] MEDS: carvediloL 3.125 MG TAB PO SCH (07:58)
[2020-09-07] MEDS: BUMETANIDE 1 MG TAB PO SCH (07:58)
[2020-09-07] MEDS: FERROUS SULFATE 325 MG TAB PO SCH (07:59)
[2020-09-07] MEDS: INSULIN ASPART (NovoLOG) 100 UNIT/ML VIAL SQ SCH ×2 (07:59→12:36)
[2020-09-07] MEDS: LIDOCAINE 5% PATCH TOPICAL SCH (07:59)
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
--- NOTE | 2020-09-07 10:58 | P.PN ---
Subjective Progress Note Date: 09/07/20 CHIEF COMPLAINT: Stage IV sacral decubitus ulcer HISTORY OF PRESENT ILLNESS: Patient is being followed for stage IV sacral decubitus ulcer. Reviewed pictures of the sacral area with evidence of necrotic tissue. Patient is followed by infectious disease and wound care service. Wound care service did recommend wound VAC which patient refused. Also they recommended that patient offloads to keep pressure off of the ulcer. We have also recommended that. Patient continues to refuse to do any kind of off loading. He did have a temp of 100. He has been tachycardic with a heart rate of 117. His labs are pending. PHYSICAL EXAM: VITAL SIGNS: Reviewed. GENERAL: Well-developed in no acute distress. HEENT: No sclera icterus. Extraocular movements grossly intact. Moist buccal mucosa. Head is atraumatic, normocephalic. ABDOMEN: Soft. Obese. Nondistended. NEUROLOGIC: Alert and oriented. Cranial nerves II through XII grossly intact. ASSESSMENT: 1. Large chronic stage IV sacral decubitus ulcer with underlying osteomyelitis PLAN: -Recommend local wound care -Patient's ulcer will not heal due to continued pressure from him chronically laying on the ulcer -No surgical intervention planned -Agree with transitioning patient to hospice care Physician Client Professional note has been reviewed by physician. Signing provider agrees with the documented findings, assessment, and plan of care. Objective - Vital Signs Vital signs: Vital Signs Temp 100 F H 09/07/20 04:00 Pulse 117 H 09/07/20 04:00 Resp 20 09/07/20 04:00 BP 96/55 09/07/20 04:00 Pulse Ox 99 09/07/20 04:00 Intake & Output 09/06/20 09/07/20 09/07/20 18:59 06:59 18:59 Intake Total 1000 1280 Output Total 1600 450 Balance -600 830 Weight 182 kg Intake: Intake, IV Titration 100 Amount Piperacillin-Tazobactam 3 100 .375 gm In Sodium Chloride 0.9% 100 ml @ 25 mls/hr IVPB Q8H [facility] Rx#: [id number] Oral 1000 1180 Output: Urine 1600 450 Other: Voiding Method Indwelling Catheter Indwelling Catheter - Labs CBC & Chem 7: 09/05/20 20:50 09/05/20 20:50 Labs: Abnormal Lab Results - Last 24 Hours (Table) 09/06/20 09/06/20 09/06/20 Range/Units 12:10 17:25 20:18 POC Glucose (mg/dL) 114 H 114 H 154 H (75-99) mg/dL 09/07/20 Range/Units 06:56 POC Glucose (mg/dL) 117 H (75-99) mg/dL
[2020-09-07 11:28] LABS: Glucose,Whole Blood 117 mg/dL (75-99)
[2020-09-07 11:38] VITALS: BP 118/76; PULSE 99; TEMP 98
[2020-09-07] MEDS ORDERED: HYDROmorphone 2 MG TAB PO STA (13:34)
--- NOTE | 2020-09-07 13:46 | P.DS ---
Providers Date of admission: 09/05/20 16:17 Expected date of discharge: 09/07/20 Attending physician: Leodan Vega MD Consults: 09/05/20 17:36 Consult Physician Urgent Consulting Provider: Jason Thomas Consult Reason/Comments: decub ulcer/ wound care Do you want consulting provider notified?: Yes 09/05/20 17:39 Consult Physician Routine Consulting Provider: Vikas Escamilla Consult Reason/Comments: decub ulcer/ wounds Do you want consulting provider notified?: Yes 09/06/20 10:34 Consult Physician Urgent Consulting Provider: Darci Biggs Consult Reason/Comments: deep decub wound debridement Do you want consulting provider notified?: Yes Primary care physician: Stated None Hospital Course: Final diagnosis Infected stage IV sacral decubitus ulcers with history of several surgeries and debridement and diverting colostomy. Sepsis secondary to above Morbid obesity BMI 57.6 Obstructive sleep apnea not using CPAP at home/obesity hypoventilation Chronic kidney disease stage III Generalized weakness fatigue and debility and bedridden Chronic bilateral lower extremity lymphedema Hypertension [id number] diabetes type 2 Chronic CHF with diastolic dysfunction Coronary artery disease with history of stent placement and history of [place] Anxiety COPD on oxygen when necessary Previous history of smoking DVT prophylaxis Discharge disposition Patient is being discharged in a stable condition with guarded prognosis to [facility]. Patient will follow-up with Shavonne Morrell in the outpatient setting upon discharge. Patient will be continuing with palliative care. Total time taken is greater than 35 minutes. Hospital course Patient is a 60-year-old male with a known history of morbid obesity with BMI 57.6 who is currently bedbound and is staying at [facility], stage IV sacral decubitus ulcer with a recent admission to [facility], coronary artery disease with stent placement history, COPD, hypertension, diabetes type 2, obstructive sleep apnea and chronic bilateral lower extremity lymphedema, generalized weakness and other multiple medical problems initially presents to [facility] due to infection of the decubitus ulcers and was being treated with antibiotics for the past 2 days. Patient was transferred to [facility] for further treatment and possible debridement. Patient does have previous surgeries at [facility] and also had Dilantin colostomy for wound healing. Patient is complaining of pain. No fever. Requesting IV pain medications. No complaints of chest pain. Patient does have baseline shortness of breath and currently very drowsy and unable to provide much history. Laboratory data showed WBC 15.5, hemoglobin 7.8, RDW 17.0 and platelets 305 and neutrophils 12.6 Sodium 132 potassium 3.5 chloride 100 be intolerant creatinine 0.81 calcium 7.1 AST 82 ALT 31 300 and albumin 1.8 09/07/2020 Patient was seen and evaluated by infectious disease along with surgery r ecommending transfer to tertiary treatment center for surgical intervention and deep debridement although patient is refusing. Patient continues to refuse wound care and position changes due to severity of pain. Patient would like to discuss with palliative care with the possibility of hospice care in the outpatient setting. Patient did meet with palliative care and is agreeable to return to [facility] with palliative care. If patient decides to further pursue surgical intervention patient will need transfer to tertiary treatment center such as [facility] for surgical intervention as patient was evaluated by surgery here recommending this. Patient is refusing surgical intervention at this time. Currently no reports of chest pain, shortness of breath, or palpitations. Patient is afebrile. No reports of nausea or vomiting and patient is tolerating diet. Patient will be going to [facility] today. On exam vital signs are stable. Temp is 98.0F, pulse is 99, respirations are 20, blood pressure is 118/76, oxygen saturation is 99% on 2 L via nasal cannula. Cardio S1, S2 are muffled. Respiratory system shows diminished breath sounds at the bases with no wheezing or rhonchi noted. Abdomen is soft and obese, and nontender. Nervous system shows diffuse weakness. Please refer to medication reconciliation sheet for a list of medications. Patient Condition at Discharge: Poor Plan - Discharge Summary Discharge Rx Participant: No New Discharge Prescriptions: New Acetaminophen Tab [Tylenol] 650 mg PO Q6HR PRN tab PRN Reason: Fever And/ Or Pain Continue Spironolactone [Aldactone] 25 mg PO DAILY carvediloL [Coreg] 3.125 mg PO BID@0900,1700 Aspirin [[place] Aspirin EC] 81 mg PO DAILY Pantoprazole [Protonix] 40 mg PO DAILY Melatonin 5 mg PO HS@2100 Bumetanide [BUMEX] 1 mg PO DAILY polyethylene glycoL 3350 [Miralax] 17 gm PO Q12H PRN PRN Reason: Constipation Prostat Sugar Free 30 ml PO BID@0900,1700 Potassium Chloride ER [K-Dur 20] 20 meq PO BID@0900,1700 Magnesium Oxide [Mag-Ox] 400 mg PO BID@0900,1700 Ferrous Sulfate [Iron (65 MG Elemental)] 325 mg PO BID@0900,1700 Lidocaine 4% Patch 1 patch TRANSDERM DAILY Atorvastatin [Lipitor] 40 mg PO HS Ascorbic Acid [Vitamin C] 500 mg PO DAILY HYDROmorphone [Dilaudid] 2 mg PO Q4H PRN #10 tab PRN Reason: Severe Pain Gabapentin 300 mg PO TID@0900,1300,2100 #12 cap oxyCODONE HCL [oxyCODONE HCL (IR)] 20 mg PO TID@0100,0900,1700 #10 tab Discontinued Piperacillin-Tazobactam [Zosyn] 4.5 gm IV Q6H Discharge Medication List Aspirin [[place] Aspirin EC] 81 mg PO DAILY 09/01/19 [History] Spironolactone [Aldactone] 25 mg PO DAILY 09/01/19 [History] carvediloL [Coreg] 3.125 mg PO BID@0900,1700 09/01/19 [History] Bumetanide [BUMEX] 1 mg PO DAILY 05/08/20 [History] Melatonin 5 mg PO HS@2100 05/08/20 [History] Pantoprazole [Protonix] 40 mg PO DAILY 05/08/20 [History] Ascorbic Acid [Vitamin C] 500 mg PO DAILY 09/05/20 [History] Atorvastatin [Lipitor] 40 mg PO HS 09/05/20 [History] Ferrous Sulfate [Iron (65 MG Elemental)] 325 mg PO BID@0900,1700 09/05/20 [History] Lidocaine 4% Patch 1 patch TRANSDERM DAILY 09/05/20 [History] Magnesium Oxide [Mag-Ox] 400 mg PO BID@0900,1700 09/05/20 [History] Potassium Chloride ER [K-Dur 20] 20 meq PO BID@0900,1700 09/05/20 [History] Prostat Sugar Free 30 ml PO BID@0900,1700 09/05/20 [History] polyethylene glycoL 3350 [Miralax] 17 gm PO Q12H PRN 09/05/20 [History] Acetaminophen Tab [Tylenol] 650 mg PO Q6HR PRN tab 09/07/20 [Rx] Gabapentin 300 mg PO TID@0900,1300,2100 #12 cap 09/07/20 [Rx] HYDROmorphone [Dilaudid] 2 mg PO Q4H PRN #10 tab 09/07/20 [Rx] oxyCODONE HCL [oxyCODONE HCL (IR)] 20 mg PO TID@0100,0900,1700 #10 tab 09/07/20 [Rx] Follow up Appointment(s)/Referral(s): Yumi Josue, [NON-STAFF] - 1-2 Days Activity/Diet/Wound Care/Special Instructions: Patient is going to [facility] with palliative care Activity as tolerated Continue current diet Patient is to continue with palliative care Patient will need tertiary treatment center transfer to [facility] if he decides to pursue surgical intervention Discharge Disposition: TRANSFER TO SNF/ECF
[2020-09-07 13:49] LABS: Basophils # (A) 0.03 X 10*3/uL (0.00-0.10); Basophils % (A) 0.2 %; Eosinophils # (A) 0.45 X 10*3/uL (0.04-0.35); Eosinophils % (A) 2.9 %; HCT 24.9 % (39.6-50.0); HGB 7.3 g/dL (13.0-17.0); Lymphocytes # (A) 2.15 X 10*3/uL (0.90-5.00); Lymphocytes % (A) 13.7 %; MCH 29.9 pg (27.0-32.0); MCHC 29.3 g/dL (32.0-37.0); Mean Platelet Volume 10.2 fL (9.5-12.2); Monocytes # (A) 1.47 X 10*3/uL (0.20-1.00); Monocytes % (A) 9.4 %; Neutrophils # (A) 11.52 X 10*3/uL (1.80-7.70); Neutrophils % (A) 73.3 %; Platelet Count 280 X 10*3/uL (140-440); RBC 2.44 X 10*6/uL (4.40-5.60); RDW 17.2 % (11.5-14.5)
[2020-09-07 14:27] LABS: African American GFR (CKD) 126.7 (60.0-200.0); Anion Gap 5.4 mmol/L (4.00-12.00); BUN/Creat Ratio 18.33 Ratio (12.00-20.00); Calcium 6.9 mg/dL (8.7-10.3); Carbon Dioxide 27.6 mmol/L (21.6-31.8); Non-African American GFR(CKD) 109.3 (60.0-200.0); Potassium 3.7 mmol/L (3.5-5.5)
--- NOTE | 2020-09-07 15:30 | PN ---
PROGRESS NOTE DATE OF SERVICE: 09/07/2020 REASON FOR FOLLOWUP: Stage IV sacral pressure ulcer. INTERVAL HISTORY: The patient did have a low-grade fever of 100 this morning. He is afebrile since then. He has been complaining of pain to the sacral area and wants more pain medication. No chest pain or cough. No abdominal pain. No diarrhea. PHYSICAL EXAMINATION: Blood pressure 118/76, pulse of 99, temperature 98. He is 99% on 2 L nasal cannula. General description is a middle-aged male lying in bed in no distress. RESPIRATORY SYSTEM: Unlabored breathing, clear to auscultation anteriorly. HEART: S1, S2. Regular rate and rhythm. ABDOMEN: Soft, no tenderness. LABS: Hemoglobin 7.3, white cell count 15.70, creatinine 0.6. DIAGNOSTIC IMPRESSION AND PLAN: Patient with stage IV sacral pressure ulcer with concern for secondary osteomyelitis. The patient needs significant extensive surgical debridement. However, the patient has opted for hospice which may be appropriate for which antibiotic can be safely discontinued. MMODL / IJN: [id number] /
== END 2020-09-07 16:22 | DRG 871 ==
LOC: 5NMEDONC 16:17
PROVIDERS: ADMIT Internal Medicine; ATTEND Internal Medicine
DX: A41.9 Sepsis, unspecified organism (principal); L89.154 Pressure ulcer of sacral region, stage 4; I13.0 Hypertensive heart and chronic kidney disease with heart failure and stage 1 through stage 4 chronic kidney disease, or unspecified chronic kidney disease; I50.32 Chronic diastolic (congestive) heart failure; N17.8 Other acute kidney failure; G82.20 Paraplegia, unspecified; L97.929 Non-pressure chronic ulcer of unspecified part of left lower leg with unspecified severity; L97.919 Non-pressure chronic ulcer of unspecified part of right lower leg with unspecified severity; M86.9 Osteomyelitis, unspecified; Z68.43 Body mass index [BMI] 50.0-59.9, adult; E11.622 Type 2 diabetes mellitus with other skin ulcer; E11.22 Type 2 diabetes mellitus with diabetic chronic kidney disease; N18.30 Chronic kidney disease, stage 3 unspecified; Z87.891 Personal history of nicotine dependence; E11.69 Type 2 diabetes mellitus with other specified complication; E66.01 Morbid (severe) obesity due to excess calories; Z51.5 Encounter for palliative care; F41.9 Anxiety disorder, unspecified; Z66 Do not resuscitate; G47.33 Obstructive sleep apnea (adult) (pediatric); I11.0 Hypertensive heart disease with heart failure; I25.10 Atherosclerotic heart disease of native coronary artery without angina pectoris; I25.2 Old myocardial infarction; I87.2 Venous insufficiency (chronic) (peripheral); I89.0 Lymphedema, not elsewhere classified; J44.9 Chronic obstructive pulmonary disease, unspecified; Z74.01 Bed confinement status; Z79.82 Long term (current) use of aspirin; Z79.899 Other long term (current) drug therapy; Z91.19 Patient's noncompliance with other medical treatment and regimen; Z93.3 Colostomy status; Z95.5 Presence of coronary angioplasty implant and graft; Z99.81 Dependence on supplemental oxygen; Z90.89 Acquired absence of other organs; Z79.891 Long term (current) use of opiate analgesic
CPT/HCPCS: 80048; 80053; 83735; 85025

== ENCOUNTER 2020-09-12 14:38 | Inpatient (IN) | payer MEDICARE, OTHER ==
[2020-09-12] MEDS ORDERED: SODIUM CHLORIDE 0.9% 1,000 ML IV STA (15:07)
[2020-09-12] MEDS ORDERED: SODIUM CHLORIDE 0.9% 500 ML 500 ML IV STA (15:07)
[2020-09-12] MEDS ORDERED: cefTRIAXone IN SWFI 1,000 MG/10 ML SYRINGE IVP STA (15:08)
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
[2020-09-12 15:33] LABS: Basophils # (A) 0.1 k/uL (0-0.2); Basophils % (A) 0 %; Eosinophils # (A) 0.3 k/uL (0-0.7); Eosinophils % (A) 1 %; Hypochromasia Slight; Lymphocytes % (A) 5 %; MCH 29.7 pg (25.0-35.0); MCHC 30.8 g/dL (31.0-37.0); MCV 96.4 fL (80.0-100.0); Mean Platelet Volume 7.3; Monocytes # (A) 1.3 k/uL (0-1.0); Monocytes % (A) 3 %; Neutrophils # (A) 36.3 k/uL (1.3-7.7); Neutrophils % (A) 90 %; Platelet Count 402 k/uL (150-450); RDW 15.5 % (11.5-15.5); WBC 40.3 k/uL (3.8-10.6)
[2020-09-12 15:42] LABS: INR 1.2 (<1.2); Partial Thromboplastin Time 28.6 sec (22.0-30.0); Prothrombin Time 12.7 sec (9.0-12.0)
[2020-09-12] MEDS: HYDROmorphone 0.5 MG/0.5 ML SYRINGE IVP STA ×2 (15:42→16:59)
[2020-09-12 15:50] LABS: Albumin 1.7 g/dL (3.5-5.0); Calcium 7.2 mg/dL (8.4-10.2); Potassium 4.1 mmol/L (3.5-5.1); Total Bilirubin 1.1 mg/dL (0.2-1.3); Total Protein 5.7 g/dL (6.3-8.2)
[2020-09-12 15:58] LABS: Appearance,Urine Turbid (Clear); Bacteria,Urine Rare /hpf; Bilirubin,Urine 1+ (Negative); Blood,Urine Small (Negative); Budding Yeast,Urine Many /hpf; Color,Urine Dark Yellow; Glucose,Urine (UA) Negative (Negative); Hyaline Casts,Urine 197 /lpf (0-2); Hyphae Yeast, Urine Many /hpf; Ketones,Urine Negative (Negative); Leukocyte Esterase,Urine Large (Negative); Mucus,Urine Many /hpf; Nitrite,Urine Negative (Negative); PH, Urine 5.5 (5.0-8.0); Protein,Urine 1+ (Negative); RBC,Urine 135 /hpf (0-5); Specific Gravity,Urine 1.021 (1.001-1.035); Squamous Epithelial Cell,Urine 7 /hpf (0-4); WBC,Urine >182 /hpf (0-5)
[2020-09-12] MEDS ORDERED: VANCOMYCIN IV PER PHARMACY 1 EACH MISC MISCELLANE PRN (16:09)
[2020-09-12] MEDS ORDERED: PIPERACILLIN-TAZOBACTAM 3.375 GM in SODIUM CHLORIDE 0.9% 100 ML IVPB STA (16:10)
[2020-09-12] MEDS ORDERED: VANCOMYCIN 2,000 MG in SODIUM CHLORIDE 0.9% 500 ML 500 ML IVPB STA (16:13)
[2020-09-12 16:14] LABS: Polychromasia Present
[2020-09-12] MEDS ORDERED: SODIUM CHLORIDE 0.9% 700 ML IV STA (16:25)
[2020-09-12] MEDS ORDERED: KETOROLAC 15 MG/ML 1 ML VIAL IVP STA (17:09)
--- NOTE | 2020-09-12 18:11 | HP ---
HISTORY AND PHYSICAL DATE OF SERVICE: 09/12/2020 CHIEF COMPLAINT: Sacral wound and pain. HISTORY OF PRESENT ILLNESS: This 60-year-old gentleman with a past medical history of multiple medical problems, including stage IV sacral decubitus ulcer with diverting colostomy, history of asthma, CAD, COPD, diabetes mellitus, hypertension, history of myocardial infarction, being followed by Dr. Shavonne Morrell in the outpatient setting, apparently [facility] jail currently. The patient was most recently admitted and discharged this month from the hospital with the diagnosis of infected stage IV sacral decubitus ulcers. The patient has a history of several surgeries and debridement. Patient also has a history of noncompliance. Apparently the patient in the jail was not moving and sitting and refusing further treatment. The patient was apparently recommended referral to [facility], which also the patient refused. The patient was also offered hospice, which the patient again refused. Palliative care is apparently being continued in [facility], and Shavonne Morrell is following the patient in the F. Currently the patient is complaining of severe pain. Otherwise, there is no history of any fever, rigor or chills. No history of headache, loss of consciousness, seizures at this time. PAST MEDICAL HISTORY: History of asthma, CAD, CHF, COPD, diabetes mellitus, hypertension, myocardial infarction, sleep apnea. HOME MEDICATIONS: Home medications are not confirmed yet. MiraLAX, oxycodone, Coreg, Aldactone, K- Dur, Protonix, melatonin, magnesium oxide, lidocaine patch, Dilaudid, gabapentin, iron, Bumex, Lipitor, aspirin, vitamin C, Tylenol. Doses are reviewed. ALLERGIES: ADHESIVE TAPES. FAMILY HISTORY: History of cancer in the family. SOCIAL HISTORY: Previous history of smoking. Occasional alcohol intake. REVIEW OF SYSTEMS: Review of systems could not be taken because of the patient's change in mental status. PHYSICAL EXAMINATION: The patient is conscious, mildly confused. Pulse is 106, blood pressure 97/65, respiration 22, temperature 98.6, pulse ox 98% on 2 L. HEENT: Conjunctivae normal. Oral mucosa moist. NECK: No jugular venous distention. No carotid bruit. No lymph node enlargement. CARDIOVASCULAR SYSTEM: S1, S2 muffled. RESPIRATORY SYSTEM: Breath sounds diminished at the bases. A few scattered rhonchi and crackles. ABDOMEN: Soft, obese, non-tender. No mass palpable. LEGS: Bilateral leg edema present. NERVOUS SYSTEM: Higher functions as mentioned earlier. Moves all 4 limbs. LYMPHATICS: No lymph node palpable in neck, axillae or groin. EXAMINATION OF THE BACK: Stage IV sacral decubitus ulcer with foul-smelling discharge, extensive, present. SKIN: As mentioned earlier. JOINTS: No active deforming arthropathy. LABS: WBC ntd, hemoglobin 8. Sodium 130, potassium 4.1. Lactic acid 4.1. ASSESSMENT: 1. Acute on chronic stage IV sacral decubitus ulcer with severe sepsis, hypotension, present on admission. 2. Change in mental status, acute metabolic encephalopathy, multifactorial. 3. Increased white count. 4. Anemia, normocytic. 5. Hyponatremia. 6. Increased creatinine with acute renal failure with acute tubular necrosis. 7. Elevated plasma lactic acid secondary to sepsis. 8. Elevated AST. 9. Hypoalbuminemia with mild protein-calorie malnutrition. 10.Possible acute urinary tract infection, present on admission. 11.Obesity with body mass index of 43. 12.Asthma, chronic obstructive pulmonary disease. 13.History of congestive heart failure, ejection fraction unknown. 14.Diabetes mellitus,type 2. 15.Hypertension. 16.History of myocardial infarction. 17.Sleep apnea. 18.History of bilateral leg edema. 19.History of lymphedema. 20.History of chronic kidney disease, stage 3. 21.History of obstructive sleep apnea. 22.History of ESBL urine. 23.History of coronary artery disease, stent. 24.FULL CODE. RECOMMENDATIONS AND DISCUSSION: In this 60-year-old gentleman who presented with multiple complex medical issues, we will monitor the patient closely, continue the current medications, continue symptomatic treatment. Will obtain cultures. Broad-spectrum IV antibiotics. Also recommend infectious disease evaluation. Resume the home medications once they are confirmed. Overall prognosis is guarded because of multiple complex medical issues. Further recommendations to follow. The patient had extreme degree of noncompliance and the patient has a son and sibling as well. Prognosis guarded. A copy of this dictation is being forwarded to Dr. Shavonne Morrell, who is the primary physician. MMODL / TROYN: [id number] / MTDD
[2020-09-12 21:05] LABS: Glucose,Whole Blood 167 mg/dL (75-99)
[2020-09-12] MEDS ORDERED: SODIUM CHLORIDE 0.9% 500 ML 500 ML IV ONE (21:05)
--- NOTE | 2020-09-12 21:08 | CDI ---
Documentation Clarification Form Date: 09/12/2020 09:03:46 PM From: Sonja Saunders RN, CCDS Admit Date: 09/12/2020 05:45:00 PM Patient Name: Shawn Lion Visit Number: [id number] ATTENTION: The Clinical Documentation Specialists (CDI) and [facility] Coding Staff appreciate your assistance in clarifying documentation. Please respond to the clarification below the line at the bottom and electronically sign. The CDI & [facility] Coding staff will review the response and follow-up if needed. Please note: Queries are made part of the Legal Health Record. If you have any questions, please contact the author of this message via ITS. Dr. Erasmo Quispe A diagnosis of UTI has been documented in the H&P in a patient admitted with an IDC in place. History/Risk Factors: Stage 4 sacral decub with diverting colostomy, DM2, HTN, from assisted. Clinical Indicators: 09/12 EC Note: "patient came to the emergency department with a Rodriguez catheter already in place." 09/12 H&P: "Possible acute urinary tract infection, present on admission." Urinalysis:+1 protein, small amount of blood, +1 bilirubin, large leukocyte esterase, 135 RBC, >182 WBC, many WBC clumps, Squamous epithelial cells 7, rare bacteria, 197 Hyaline casts, many mucus, many yeast Urine culture: not done 09/12Lab results: WBC 40.3, Neutrophils 36.3, lactic acid 4.1/3.2 Treatment: 09/12 Rocephin 1000 mg IVP x 1 dose 09/12 IV Vanco PTD 09/12 IV Zosyn 3.375 gm IVPB Q 8 hrs. IVPB 09/12 1.5L 0.9% NS IVF bolus In your professional opinion, can you please clarify the etiology of the UTI, if known? UTI related to Rodriguez catheter UTI not related to catheter Other condition, please specify Unable to determine If an infective organism is present, please specify cause and effect relationship if applicable. (Last Revision: October 2017) UTI related to Rodriguez catheter MTDD
[2020-09-12] MEDS: SODIUM CHLORIDE 0.9% 1,000 ML IV SCH (21:28)
[2020-09-12] MEDS: HEPARIN SODIUM,PORCINE 5,000 UNIT/ML 1 ML VIAL SQ SCH (21:28)
[2020-09-12] MEDS ORDERED: SODIUM CHLORIDE 0.9% 1,000 ML IV ONE (21:47)
[2020-09-12] MEDS: NOREPINEPHRINE 4 MG in SODIUM CHLORIDE 0.9% 250 ML IV SCH (23:51)
--- NOTE | 2020-09-13 00:16 | P.EN ---
A team note Activated at 9:42 PM. Arrived on the scene shortly after. Reviewed the chart discussed the case with RN. The patient is a 60-year-old male with a complex PMH including stage IV decubitus ulcer, colostomy, COPD, diabetes, hypertension who was sent in from a assisted for suspected infected ulcer. The patient was admitted to the medicine service with severe sepsis suspected secondary to infected decubitus ulcer. Upon arrival to the floor, the patient continued to have hypotension, for which the RN activated A-team. The patient was seen at the bedside. Vitals at time of evaluation were BP 84/49, pulse 96, SpO2 98% on 2 L nasal cannula, and temperature 97.4. The patient refused to be examined. He noted long-standing pain in his lower back and legs. When asked about any additional pain or discomfort, the patient reported "I am always in pain everywhere". General: Disheveled ill appearing morbidly obese male, appears significantly older than age, in no acute distress HEENT: NC/AT, anicteric sclerae, moist conjunctiva, no lid-lag, PERRLA Cardiovascular: S1/S2 wnl, no murmurs, rubs, or gallops Lungs: Poor breath sounds anteriorly and patient would not sit up for posterior auscultation Abdominal: Soft, nontender, nondistended, colostomy in place with brown stool in bag Skin: Significant visible yellowish plaques in skin folds throughout, the patient would not allow examination of his back or legs Extremities: Significant chronic venous stasis changes of bilateral lower extremities Psychiatric: Alert and oriented to person, place and time, guarded affect Neuro: Moving all extremities, no focal deficits noted Assessment/plan Septic shock possibly due to decubitus ulcer -Patient refused examination of his back and legs -Continue with vancomycin and Zosyn for broad-spectrum coverage -Primary team notified, who subsequently arranged for transfer to medical ICU -Levophed infusion ordered by teacher private -Infectious disease consult already in place -Continue IV fluids with additional bolus ordered by primary team Lactic acidosis -Continue with IV fluids -Monitor for resolution
[2020-09-13] MEDS: PIPERACILLIN-TAZOBACTAM 3.375 GM in SODIUM CHLORIDE 0.9% 100 ML IVPB SCH ×3 (00:41→15:13)
[2020-09-13] MEDS: HYDROmorphone 0.5 MG/0.5 ML SYRINGE IVP PRN ×3 (00:51→17:56)
[2020-09-13] MEDS ORDERED: NALOXONE 0.4 MG/ML 1 ML VIAL IV PRN (01:40)
[2020-09-13 04:26] LABS: Albumin 1.7 g/dL (3.5-5.0); Calcium 7.1 mg/dL (8.4-10.2); Potassium 4.1 mmol/L (3.5-5.1); Total Bilirubin 1.1 mg/dL (0.2-1.3); Total Protein 5.6 g/dL (6.3-8.2)
[2020-09-13 04:38] LABS: HCT 27.6 % (39.0-53.0); HGB 8.2 gm/dL (13.0-17.5); Hypochromasia Marked; MCH 29.5 pg (25.0-35.0); MCHC 29.7 g/dL (31.0-37.0); MCV 99.3 fL (80.0-100.0); Macrocytosis Slight; Mean Platelet Volume 7.9; Platelet Count 429 k/uL (150-450); RBC 2.78 m/uL (4.30-5.90); RDW 15.4 % (11.5-15.5); WBC 44.5 k/uL (3.8-10.6)
[2020-09-13 05:04] LABS: Band Neutrophils % 18 %; Lymphocytes # (M) 2.23 k/uL (1.0-4.8); Monocytes # (M) 1.34 k/uL (0-1.0); Myelocytes # (M) 0.45 k/uL (0); Myelocytes % 1 %; Neutrophils % (M) 73 %; Nucleated Red Blood Cells 0 /100 WBC (0-0)
[2020-09-13 05:05] LABS: Total Cells Counted 200
[2020-09-13 05:06] LABS: Rouleaux Present
[2020-09-13] MEDS: NOREPINEPHRINE 4 MG in SODIUM CHLORIDE 0.9% 250 ML IV SCH ×4 (06:34→21:08)
[2020-09-13 06:45] LABS: Glucose,Whole Blood 112 mg/dL (75-99)
[2020-09-13] MEDS: PANTOPRAZOLE 40 MG TABLET PO SCH (06:53)
[2020-09-13] MEDS: VANCOMYCIN 2,000 MG in SODIUM CHLORIDE 0.9% 500 ML 500 ML IVPB SCH (08:26)
[2020-09-13] MEDS: HEPARIN SODIUM,PORCINE 5,000 UNIT/ML 1 ML VIAL SQ SCH ×2 (08:27→19:40)
[2020-09-13] MEDS ORDERED: VANCOMYCIN 2,000 MG in SODIUM CHLORIDE 0.9% 500 ML 500 ML IVPB SCH (09:00)
[2020-09-13 11:54] LABS: Glucose,Whole Blood 111 mg/dL (75-99)
[2020-09-13] MEDS: SODIUM CHLORIDE 0.9% 1,000 ML IV SCH ×2 (11:59→23:53)
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
[2020-09-13] MEDS ORDERED: polyethylene glycoL 3350 17 GM POWD.PACK PO PRN (13:04)
[2020-09-13] MEDS ORDERED: ACETAMINOPHEN TAB 325 MG TAB PO PRN (13:04)
--- NOTE | 2020-09-13 14:17 | PN ---
PROGRESS NOTE DATE OF SERVICE: 09/13/2020. This 60-year-old gentleman admitted with stage IV decubitus ulcer and acute sepsis and severe hypotension, has been transferred to ICU at this time. The patient will be closely monitored. The patient on broad spectrum IV antibiotics. Infectious Disease and Pulmonary consultations are underway at this time. Cultures are negative so far. PAST MEDICAL HISTORY AND REVIEW OF SYSTEMS: Could not be taken, the patient is slightly confused. CURRENT MEDICATIONS: Current medications are reviewed and include [place], heparin, Dilaudid, Narcan, Zosyn, vancomycin. PHYSICAL EXAMINATION: Patient is conscious and confused. Pulse 101, blood pressure 82/56, respiration 9, temperature is normal, pulse ox 95% on 2 L nasal cannula. HEENT: Conjunctivae normal. NECK: No jugular venous distention. CARDIOVASCULAR: S1, S2 muffled. RESPIRATORY: Breath sounds diminished at the bases. A few scattered rhonchi and crackles. ABDOMEN: Soft, obese, nontender. LEGS: No leg edema. Sacral decubitus stage IV present. LABS: WBC 44.5, hemoglobin is 8.2, sodium 132. ASSESSMENT: 1. Acute on chronic stage IV sacral decubitus pressure ulcer with severe sepsis, hypotension, present on admission. 2. Change in mental status, acute metabolic encephalopathy multifactorial. 3. Increased WBC. 4. Anemia, normocytic. 5. Hyponatremia. 6. Increased creatinine with acute renal failure with acute tubular necrosis. 7. Elevated plasma lactic acid secondary to sepsis, present on admission. 8. Elevated AST. 9. Hypoalbuminemia with mild protein calorie malnutrition. 10.Acute urinary tract infection, present on admission, Rodriguez catheter. 11.Obesity with body mass index of 43. 12.Asthma, chronic obstructive pulmonary disease history. 13.History of congestive heart failure, ejection fraction unknown. 14.Diabetes mellitus type 2. 15.Hypertension. 16.History of myocardial infarction. 17.Sleep apnea. 18.History of bilateral leg edema. 19.History of lymphedema. 20.History of chronic kidney disease stage 3. 21.History of obstructive sleep apnea. 22.History of ESBL in the urine. 23.History of coronary artery disease, stent. 24.FULL CODE. RECOMMENDATIONS AND DISCUSSION: Recommend to continue the current medications, continue monitoring and symptomatic treatment. At this time I recommend broad-spectrum IV antibiotics. Follow the cultures. IV fluids. Infectious disease evaluation and Pulmonary evaluation. Guarded prognosis because of multiple complex medical issues. Further recommendations to follow. Home consultation also will be done. The patient is currently FULL CODE. The patient also had a long history of noncompliance. Also assistant case manager and social welfare research worker to address these issues and probably obtain legal guardian and continue to monitor. Prognosis guarded. Further recommendations to follow. MMODL / IJN: [id number] / MTDD
[2020-09-13 16:24] LABS: Glucose,Whole Blood 121 mg/dL (75-99)
[2020-09-13] MEDS: MAGNESIUM OXIDE 400 MG TAB PO SCH (17:18)
[2020-09-13] MEDS: POTASSIUM CHLORIDE ER 20 MEQ TAB.ER PO SCH (17:18)
[2020-09-13] MEDS: FERROUS SULFATE 325 MG TAB PO SCH (17:18)
[2020-09-13] MEDS: AMPICILLIN-SULBACTAM 3 GM in SODIUM CHLORIDE 0.9% 100 ML IVPB SCH ×2 (17:23→23:53)
--- NOTE | 2020-09-13 17:33 | CONS ---
CONSULTATION DATE OF SERVICE: 09/13/2020 REASON FOR CONSULTATION: Sepsis and bacteremia. HISTORY OF PRESENT ILLNESS: The patient is a 60-year-old male with a past medical history significant for a stage IV sacral pressure ulcer that the patient has had for a couple of months now. The patient did have multiple admissions to this facility and an outside facility. He was recently admitted to this hospital and the patient opted for hospice-oriented care. The patient was transferred back to the group home where the patient was living. Apparently the patient was not getting out of bed and did not allow anybody to take care of his sacral wound. The patient subsequently decided to change his mind and did not want to be hospice any more. The patient was noted to be hypertensive and tachycardic by the nursing staff, and subsequently the patient was sent to [facility] for further evaluation. On presentation to this facility the patient was afebrile. The patient was hypotensive and was admitted to the floor. Subsequently the patient was transferred to the ICU because of hypotension. He did have a white count of 40,000 on admission. It is up to 44.5 today. The patient is currently sleepy and lethargic. He has received some pain medication and was unable to provide any history. Most of the information has been extracted from the chart. The patient did have local cultures obtained as well as blood cultures. Blood cultures came back positive with Gram-positive cocci and he is currently on broad-spectrum antibiotics in the form of vancomycin and Zosyn. Most information has been extracted from review of the chart, as the patient did not provide any history. REVIEW OF SYSTEMS: Positive points have been mentioned HPI. Rest of the systems negative. PAST MEDICAL HISTORY: Coronary artery disease, heart failure, COPD, diabetes mellitus, hypertension, [place], sleep apnea and stage IV pressure ulcer. PAST SURGICAL HISTORY: PTCA with stent, tonsillectomy, diverting colostomy. SOCIAL HISTORY: Remote history of smoking. Current group home resident. No drinking or drug use. FAMILY HISTORY: No pertinent findings noticed. ALLERGIES: NO KNOWN DRUG ALLERGIES. MEDICATIONS: The patient is currently on Tylenol, [place], vitamin C, aspirin, Lipitor, iron sulfate, Neurontin, Dilaudid, magnesium oxide, Protonix, Zosyn and vancomycin. PHYSICAL EXAMINATION: Blood pressure 97/47, pulse of 93, temperature 98.4. He is 96% on 2 L nasal cannula. General description is a middle-aged male lying in bed in no distress. No tachypnea or accessory muscle of respiration use. HEENT EXAMINATION: Pallor. No scleral icterus. Oral mucous membrane is dry. NECK: Trachea central. No thyromegaly. LUNGS: Unlabored breathing. Clear to auscultation anteriorly. No wheeze or crackle. HEART: S1, S2. Regular rate and rhythm. ABDOMEN: Soft. No tenderness. No guarding or rigidity. EXTREMITIES: Some trace edema of feet. SKIN EXAMINATION: No rash or mass palpable. The patient refused to turn around for examination of his sacral wound. LABS: BUN of 24, creatinine 1.11. LFTs are normal. Hemoglobin 8.3, white count 44.5. Blood culture with Gram-positive cocci. Sacral culture currently pending. DIAGNOSTIC IMPRESSION AND PLAN: Patient admitted to hospital with sepsis. The patient had hypotension with elevated white count. Source is stage IV sacral pressure ulcer. This patient has refused his treatment and has refused to be transferred to tertiary care for more aggressive surgical debridement and deep cultures. The patient was made hospice and is currently coming back to hospital septic, as he has not received any treatment for the same. PLAN: 1. Vancomycin, Pharmacy to dose. Target of 15. Watch his kidney function closely. 2. Zosyn will be switched over to Unasyn to decrease risk of nephrotoxicity with a Zosyn and vancomycin combination. 3. The patient's blood culture will be repeated to document clearance of his bacteremia. 4. The patient's wound would not heal without aggressive local wound care, for which the wound care team has been consulted, as well as surgical debridement. If not, hospice will be a better option for him. Thank you for this consultation. Will follow this patient along with you. MMODL / IJN: [id number] /
[2020-09-13] MEDS: ATORVASTATIN 40 MG TAB PO SCH (19:40)
[2020-09-13] MEDS: GABAPENTIN 300 MG CAP PO SCH (19:40)
[2020-09-13] MEDS: MELATONIN 5 MG TABLET PO SCH ×2 (19:40→19:54)
[2020-09-13 21:12] LABS: Glucose,Whole Blood 166 mg/dL (75-99)
[2020-09-14] MEDS: NOREPINEPHRINE 4 MG in SODIUM CHLORIDE 0.9% 250 ML IV SCH ×4 (01:02→20:15)
[2020-09-14] MEDS: HYDROmorphone 0.5 MG/0.5 ML SYRINGE IVP PRN ×5 (05:12→20:59)
[2020-09-14 06:19] LABS: Anisocytosis Slight; Basophils # (A) 0.1 k/uL (0-0.2); Basophils % (A) 0 %; Eosinophils # (A) 0.1 k/uL (0-0.7); Eosinophils % (A) 0 %; HCT 27.2 % (39.0-53.0); Hypochromasia Slight; Lymphocytes # (A) 1.9 k/uL (1.0-4.8); Lymphocytes % (A) 4 %; MCH 30.9 pg (25.0-35.0); MCHC 32.9 g/dL (31.0-37.0); Mean Platelet Volume 7.3; Monocytes # (A) 1.2 k/uL (0-1.0); Monocytes % (A) 3 %; Neutrophils % (A) 93 %; Platelet Count 339 k/uL (150-450); RDW 16.1 % (11.5-15.5); WBC 46.5 k/uL (3.8-10.6)
[2020-09-14] MEDS: AMPICILLIN-SULBACTAM 3 GM in SODIUM CHLORIDE 0.9% 100 ML IVPB SCH ×3 (06:19→18:46)
[2020-09-14] MEDS: PANTOPRAZOLE 40 MG TABLET PO SCH (06:19)
[2020-09-14 06:20] LABS: MCV 93.9 fL (80.0-100.0)
[2020-09-14 06:28] LABS: Albumin 1.8 g/dL (3.5-5.0); Potassium 3.8 mmol/L (3.5-5.1); Total Bilirubin 1.1 mg/dL (0.2-1.3); Total Protein 6.1 g/dL (6.3-8.2)
[2020-09-14] MEDS: HYDROcodone/APAP 5-325MG 1 EACH TAB PO PRN ×3 (07:12→20:58)
[2020-09-14] MEDS: VANCOMYCIN 2,000 MG in SODIUM CHLORIDE 0.9% 500 ML 500 ML IVPB SCH (08:05)
[2020-09-14] MEDS: MAGNESIUM OXIDE 400 MG TAB PO SCH ×2 (08:05→17:01)
[2020-09-14] MEDS: GABAPENTIN 300 MG CAP PO SCH ×3 (08:05→20:58)
[2020-09-14] MEDS: FERROUS SULFATE 325 MG TAB PO SCH ×2 (08:05→17:01)
[2020-09-14] MEDS: POTASSIUM CHLORIDE ER 20 MEQ TAB.ER PO SCH ×2 (08:05→17:01)
[2020-09-14] MEDS: ASPIRIN 81 MG PO SCH (08:05)
[2020-09-14] MEDS: HEPARIN SODIUM,PORCINE 5,000 UNIT/ML 1 ML VIAL SQ SCH ×2 (08:05→20:59)
[2020-09-14] MEDS: ASCORBIC ACID 500 MG TAB PO SCH (09:18)
[2020-09-14] MEDS ORDERED: LIDOCAINE 1% INJ 10MG/ML (20 ML MDV) ONE (09:39)
[2020-09-14] MEDS ORDERED: LIDOCAINE 1% INJ 10MG/ML (20 ML MDV) SQ ONE (10:02)
--- NOTE | 2020-09-14 10:45 | XR ---
EXAMINATION TYPE: XR chest 1V confirm line [facility] DATE OF EXAM: 09/14/2020 HISTORY: Shortness of breath. COMPARISON: 05/10/2020 TECHNIQUE: Single view of the chest is submitted. FINDINGS: Demonstrated are scattered senescent parenchymal change. PICC line is within the left subclavian vei n and should be advanced. There is no evidence for focal infiltrate. The heart is stable. Hilar and mediastinal structures are within normal limits. Degenerative changes are seen of the dorsal spine. IMPRESSION: 1. Chronic changes without evidence for acute pulmonary disease. PICC line as above.
--- NOTE | 2020-09-14 11:13 | IR ---
PICC LINE PLACEMENT: HISTORY: Infection requiring long-term antibiotic therapy PROCEDURE: Ultrasound guidance of PICC line placement. NET DEVELOPER: Dr. Car. COMPLICATIONS: None ANESTHESIA: 1. 1% Lidocaine locally. FINDINGS/TECHNIQUE: The procedure was explained to the patient. The risks, complications, benefits and alternatives were discussed and any questions were answered. Informed consent was obtained. The patient was placed supine on the fluoroscopic table and prepped and draped in the usual sterile fas ion. Utilizing a 21 gauge needle and sonographic guidance, access in the left basilic vein was achi eved and there is placement of a 0.018 guidewire. The vein is patent. A 5-F. sheath was placed over the guidewire. The guidewire and dilator were removed and a 5-F. Double lumen PICC line was placed through the sheath with the chest x-ray confirming the tip at the level of the SVC. The sheath was r emoved, the catheter was flushed and sutured into position. The patient was stable throughout the pr ocedure and remained stable upon discharge from the Department of Radiology. The vein puncture was patent under ultrasound. A granados scale image was obtained to document patency of the vein punctured. All elements of the maximal barrier technique were utilized. IMPRESSION: 1. Successful PICC line placement under ultrasound performed bedside within the ICU.
[2020-09-14 11:26] LABS: Glucose,Whole Blood 144 mg/dL (75-99)
[2020-09-14] MEDS ORDERED: FLUCONAZOLE 100 MG TAB PO ONE (14:57)
--- NOTE | 2020-09-14 15:26 | P.PN ---
Subjective Progress Note Date: 09/14/20 Principal diagnosis: Bacteremia with gram-positive cocci/sepsis Infected stage IV decubitus ulcer Hyponatremia Acute renal injury/ATN 60-year-old male patient with past medical history of hypertension, diabetes, CAD/CHF, obstructive sleep apnea and morbid obesity, admitted to the hospital with infected stage IV decubitus ulcer and acute sepsis; patient was transferred to ICU versus severe hypertension and is being maintained on IV Levophed 09/14/2020 Patient is seen and evaluated in room in ICU; reports severe pain in both knees and wants them repositioned; reports improvement in pain with pain medication; patient is status post PICC line placement and x-rays stable Patient remains on IV vancomycin with pharmacy dosing service; Zosyn has been sw itched to IV Unasyn decrease risk of nephrotoxicity; blood cultures are repeated and results are pending; wound care consult in place for aggressive local wound care for the possibility of surgical debridement, pending response to IV antibiotic Patient has been previously admitted to hospice care; ID recommending 2-D consult hospice if patient doesn't desire any aggressive treatment Objective - Vital Signs Vital signs: Vital Signs Temp 97.7 F 09/14/20 04:00 Pulse 105 H 09/14/20 07:00 Resp 14 09/14/20 07:00 BP 112/69 09/14/20 07:00 Pulse Ox 96 09/14/20 07:00 Intake & Output 09/13/20 09/14/20 09/14/20 18:59 06:59 18:59 Intake Total 2319.167 1434.875 75 Output Total 410 520 70 Balance 1909.167 914.875 5 Weight 150 kg 145 kg Intake: IV 975 825 75 Sodium Chloride 0.9% 1, 975 825 75 000 ml @ 75 mls/hr IV . [id number] MICHAEL Rx#:[id number] Intake, IV Titration 1104.167 609.875 Amount Ampicillin-Sulbactam 3 gm 100 In Sodium Chloride 0.9% 100 ml @ 200 mls/hr IVPB Q6HR MICHAEL Rx#:[id number] Norepinephrine 4 mg In 404.167 609.875 Sodium Chloride 0.9% 250 ml @ 0.05 MCG/KG/MIN 25. 908 mls/hr IV [id number] MICHAEL Rx#:[id number] Piperacillin-Tazobactam 3 100 .375 gm In Sodium Chloride 0.9% 100 ml @ 25 mls/hr IVPB Q8HR MICHAEL Rx# :[id number] Vancomycin 2,000 mg In 500 Sodium Chloride 0.9% 500 ml 500 ml @ 167 mls/hr IVPB Q24H MICHAEL Rx#: [id number] Oral 240 Output: Urine 410 520 70 Other: Voiding Method Indwelling Catheter Indwelling Catheter - Exam - Constitutional General appearance: Present: average body habitus, cooperative, no acute distress Neck: Present: normal ROM. Absent: lymphadenopathy, rigidity, thyromegaly Respiratory: bilateral: CTA, negative: rales, rhonchi, wheezing - Cardiovascular Rhythm: regular Heart sounds: normal: S1, S2 Abnormal Heart Sounds: Absent: systolic murmur, diastolic murmur Gastrointestinal; normal bowel sounds, soft. Absent: distended, organomegaly, tenderness Genitourinary: deferred Integumentary: Stage IV decubitus ulcer Neurologic: Present: CNII-XII intact. Absent: focal deficits Musculoskeletal: Reports marked tenderness both knees; unable to move lower extremities - Labs CBC & Chem 7: 09/14/20 05:40 09/14/20 05:40 Labs: Abnormal Lab Results - Last 24 Hours (Table) 09/13/20 09/13/20 09/13/20 Range/Units 11:53 16:12 21:10 WBC (3.8-10.6) k/uL RBC (4.30-5.90) m/uL Hgb (13.0-17.5) gm/dL Hct (39.0-53.0) % RDW (11.5-15.5) % Neutrophils # (1.3-7.7) k/uL Monocytes # (0-1.0) k/uL Sodium (137-145) mmol/L Carbon Dioxide (22-30) mmol/L BUN (9-20) mg/dL Glucose (74-99) mg/dL POC Glucose (mg/dL) 111 H 121 H 166 H (75-99) mg/dL Plasma Lactic Acid [place] (0.7-2.0) mmol/L Calcium (8.4-10.2) mg/dL AST (17-59) U/L Alkaline Phosphatase (38-126) U/L Total Protein (6.3-8.2) g/dL Albumin (3.5-5.0) g/dL 09/14/20 09/14/20 09/14/20 Range/Units 05:40 05:40 05:40 WBC 46.5 H (3.8-10.6) k/uL RBC 2.90 L (4.30-5.90) m/uL Hgb 9.0 L (13.0-17.5) gm/dL Hct 27.2 L (39.0-53.0) % RDW 16.1 H (11.5-15.5) % Neutrophils # 43.0 H (1.3-7.7) k/uL Monocytes # 1.2 H (0-1.0) k/uL Sodium 134 L (137-145) mmol/L Carbon Dioxide 19 L (22-30) mmol/L BUN 22 H (9-20) mg/dL Glucose 139 H (74-99) mg/dL POC Glucose (mg/dL) (75-99) mg/dL Plasma Lactic Acid [place] 2.2 H* (0.7-2.0) mmol/L Calcium 7.0 L (8.4-10.2) mg/dL AST 75 H (17-59) U/L Alkaline Phosphatase 477 H (38-126) U/L Total Protein 6.1 L (6.3-8.2) g/dL Albumin 1.8 L (3.5-5.0) g/dL Microbiology - Last 24 Hours (Table) 09/12/20 15:30 Gram Stain - Preliminary Buttock Wound Culture - Preliminary Gram Neg Bacilli Gram Neg Bacilli#2 Group D Enterococcus 09/12/20 15:18 Urine Culture - Preliminary Urine,Voided Yeast species 09/12/20 15:00 Blood Culture Gram Stain - Preliminary Blood 09/12/20 15:18 Blood Culture - Preliminary Blood No Growth after 24 hours 09/12/20 15:00 Blood Culture - Final Blood Assessment and Plan Assessment: 1. Gram-positive cocci bacteremia - Patient remains on broad-spectrum IV antibiotics; ID on board 2. Sepsis; patient remains in ICU and blood pressure remained soft on IV Levophed; critical care on 3. Infected stage IV decubitus ulcer; wound care consult in place; patient might need surgical debridement pending clinical course 4. Altered mental status/metabolic versus toxic encephalopathy- multifactorial; continue with treatment of underlying condition 5. Electrolyte imbalance/hyponatremia; remains on IV fluid hydration; continue to monitor electrolytes closely 6. Acute renal failure/ATN; patient is being maintained on IV fluids with close monitoring of strict PARK's, daily weights, renal function and electrolytes; avoid nephrotoxic agents 7. UTI, present on admission; urine culture reveals greater than 100,000 yeast; we will add IV Diflucan and await further recommendations from ID 8. COPD/asthma not in exacerbation; continue with home inhaler therapy 9. Hyperlipidemia; Lipitor 40 mg by mouth daily at bedtime 10. CAD/CHF; aspirin, statins 11. Morbid obesity/obstructive sleep apnea DVT prophylaxis; subcu heparin CODE STATUS; full code
--- NOTE | 2020-09-14 15:31 | PN ---
PROGRESS NOTE DATE OF SERVICE: 09/14/2020 REASON FOR FOLLOWUP: Sacral pressure ulcer, bacteremia. INTERVAL HISTORY: The patient is currently afebrile. Patient is slightly more awake, alert. Has been complaining of pain all over. No chest pain or cough. No abdominal pain or diarrhea. PHYSICAL EXAMINATION: Blood pressure 100/50 with a pulse of 102, temperature 96.9. He is 96% on 2 L nasal cannula. General description is a middle-aged male lying in bed in no distress. RESPIRATORY SYSTEM: Unlabored breathing, clear to auscultation anteriorly. HEART: S1, S2. Regular rate and rhythm. ABDOMEN: Soft, no tenderness. pressure ulcer but no cellulitis. LABS: Hemoglobin 9, white count 46.5, BUN of 22, creatinine 1.08. Urine showing a yeast. Sacral pressure ulcer with gram-negative bacilli and Enterococcus. Blood culture with coagulase negative staph. DIAGNOSTIC IMPRESSION AND PLAN: Patient admitted to the hospital with sepsis in this patient did have stage IV sacral pressure ulcer has refused treatment in the past and he was getting to local wound care. With this extensive wound the patient will not heal on antibiotic alone and he needs extensive surgical debridement, which if cannot be done at this facility needs to be transferred to tertiary care. Patient is covered with Unasyn and vancomycin to continue. With urine showing yeast, Diflucan will be added. Overall prognosis remains to be guarded. MMODL / IJN: [id number] /
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
[2020-09-14 17:13] LABS: Glucose,Whole Blood 140 mg/dL (75-99)
[2020-09-14] MEDS: SODIUM CHLORIDE 0.9% 1,000 ML IV SCH (18:46)
[2020-09-14] MEDS: ATORVASTATIN 40 MG TAB PO SCH (20:58)
[2020-09-14] MEDS: MELATONIN 5 MG TABLET PO SCH (20:59)
[2020-09-14 21:08] LABS: Glucose,Whole Blood 132 mg/dL (75-99)
[2020-09-15] MEDS: HYDROmorphone 0.5 MG/0.5 ML SYRINGE IVP PRN ×4 (00:38→22:25)
[2020-09-15] MEDS: AMPICILLIN-SULBACTAM 3 GM in SODIUM CHLORIDE 0.9% 100 ML IVPB SCH ×3 (00:40→12:52)
[2020-09-15] MEDS: HYDROcodone/APAP 5-325MG 1 EACH TAB PO PRN ×3 (03:30→20:48)
[2020-09-15 04:01] LABS: HCT 27.3 % (39.0-53.0); HGB 8.6 gm/dL (13.0-17.5); Hypochromasia Moderate; MCH 30.1 pg (25.0-35.0); MCHC 31.3 g/dL (31.0-37.0); Mean Platelet Volume 7.4; Platelet Count 323 k/uL (150-450); RBC 2.84 m/uL (4.30-5.90); RDW 15.7 % (11.5-15.5); WBC 38.7 k/uL (3.8-10.6)
[2020-09-15 04:24] LABS: ALT 33 U/L (4-49); AST 84 U/L (17-59); African American GFR (CKD) >90 (>60 ml/min/1.73 sqM); Albumin 1.6 g/dL (3.5-5.0); Alkaline Phosphatase 512 U/L (38-126); Anion Gap 9 mmol/L; Blood Urea Nitrogen 25 mg/dL (9-20); Calcium 6.8 mg/dL (8.4-10.2); Carbon Dioxide 20 mmol/L (22-30); Chloride 105 mmol/L (98-107); Glucose 123 mg/dL (74-99); Non-African American GFR(CKD) >90 (>60 ml/min/1.73 sqM); Potassium 3.9 mmol/L (3.5-5.1); Sodium 134 mmol/L (137-145); Total Bilirubin 1.2 mg/dL (0.2-1.3); Total Protein 5.6 g/dL (6.3-8.2)
[2020-09-15 04:41] LABS: Band Neutrophils % 21 %; Lymphocytes # (M) 0.39 k/uL (1.0-4.8); Monocytes # (M) 0.77 k/uL (0-1.0); Neutrophils % (M) 76 %; Nucleated Red Blood Cells 0 /100 WBC (0-0); Total Cells Counted 200
[2020-09-15 04:42] LABS: Toxic Granulation Present; Toxic Vacuolation Present
[2020-09-15] MEDS: SODIUM CHLORIDE 0.9% 1,000 ML IV SCH ×2 (06:01→17:04)
[2020-09-15] MEDS: PANTOPRAZOLE 40 MG TABLET PO SCH (07:03)
[2020-09-15 07:09] LABS: Glucose,Whole Blood 145 mg/dL (75-99)
[2020-09-15] MEDS: VANCOMYCIN 2,000 MG in SODIUM CHLORIDE 0.9% 500 ML 500 ML IVPB SCH (09:28)
[2020-09-15] MEDS: ASCORBIC ACID 500 MG TAB PO SCH (09:28)
[2020-09-15] MEDS: ASPIRIN 81 MG PO SCH (09:28)
[2020-09-15] MEDS: FERROUS SULFATE 325 MG TAB PO SCH ×2 (09:28→16:57)
[2020-09-15] MEDS: FLUCONAZOLE 100 MG TAB PO SCH (09:28)
[2020-09-15] MEDS: MAGNESIUM OXIDE 400 MG TAB PO SCH ×2 (09:28→16:58)
[2020-09-15] MEDS: HEPARIN SODIUM,PORCINE 5,000 UNIT/ML 1 ML VIAL SQ SCH ×2 (09:29→20:50)
[2020-09-15] MEDS: GABAPENTIN 300 MG CAP PO SCH ×3 (09:29→20:56)
[2020-09-15] MEDS: POTASSIUM CHLORIDE ER 20 MEQ TAB.ER PO SCH ×4 (09:29→17:22)
[2020-09-15 11:38] LABS: Glucose,Whole Blood 124 mg/dL (75-99)
[2020-09-15] MEDS: NOREPINEPHRINE 4 MG in SODIUM CHLORIDE 0.9% 250 ML IV SCH ×2 (12:53→21:38)
--- NOTE | 2020-09-15 15:29 | PN ---
PROGRESS NOTE DATE OF SERVICE: 09/15/2020 REASON FOR FOLLOWUP: Sepsis with infected sacral pressure ulcer. INTERVAL HISTORY: Patient is currently afebrile. The patient remains to be slightly sleepy, lethargic. Denies any chest pain or cough. No abdominal pain. Still some pain to the sacral wound area. PHYSICAL EXAMINATION: Blood pressure is 124/76, pulse of 90. Temperature 98.5. He is 93% on room air. General description: The patient is a middle-aged male lying in bed in no distress. Respiratory system: Unlabored breathing. Clear to auscultation anteriorly. Heart S1, S2. Regular rate and rhythm. ABDOMEN: Soft, no tenderness. LABS: Hemoglobin 8.3, white count 8.7, BUN of 25, creatinine 0.85. CRP is 416. Sacral culture positive for E coli, Proteus and VRE. Urine is Kirstie albicans. Blood culture with Staph epidermidis. Repeat culture so far negative. DIAGNOSTIC IMPRESSION AND PLAN: Patient with sepsis, source is infected sacral pressure and osteomyelitis with polymicrobial lina. Patient needs extensive surgical debridement and local care as antibiotic will not be the answer in view of the sensitivity pattern this pathogen. Antibiotic has been adjusted to cefepime and daptomycin. Monitor clinical course closely. Continue supportive care. MMODL / IJN: [id number] /
--- NOTE | 2020-09-15 15:57 | P.PN ---
Subjective Progress Note Date: 09/15/20 Principal diagnosis: Bacteremia with gram-positive cocci/sepsis Infected stage IV decubitus ulcer Hyponatremia Acute renal injury/ATN 60-year-old male patient with past medical history of hypertension, diabetes, CAD/CHF, obstructive sleep apnea and morbid obesity, admitted to the hospital with infected stage IV decubitus ulcer and acute sepsis; patient was transferred to ICU versus severe hypertension and is being maintained on IV Levophed 09/14/2020 Patient is seen and evaluated in room in ICU; reports severe pain in both knees and wants them repositioned; reports improvement in pain with pain medication; patient is status post PICC line placement and x-rays stable Patient remains on IV vancomycin with pharmacy dosing service; Zosyn has been sw itched to IV Unasyn decrease risk of nephrotoxicity; blood cultures are repeated and results are pending; wound care consult in place for aggressive local wound care for the possibility of surgical debridement, pending response to IV antibiotic Patient has been previously admitted to hospice care; ID recommending 2-D consult hospice if patient doesn't desire any aggressive treatment 09/15/2020 Patient is seen and evaluated in ICU; discussed in great detail with nursing staff; patient has been refusing all treatment and medications due to uncontrolled pain; remains on IV Dilaudid 0.5 mg every 4 hours when necessary; patient has been refusing oral [place]; vital signs are reviewed; remains afebrile with temperature of 98.5, pulse 90, blood pressure of 124/76 Laboratory review shows CBC with a white blood count of 8.7, hemoglobin 8.3, B UN/creatinine of 25/0.85; CRP of 416 Wound culture is positive for E. coli, Proteus and VRE; urine culture reveals Kirstie albicans; blood culture is positive for staph epidermidis Patient remains on IV antibiotics for sepsis with suspected source infected sacral decubitus ulcer with possible osteomyelitis; IDs on board and dai mmending possible extensive surgical debridement and local care; IV antibiotics have been changed to cefepime and daptomycin Patient previously has been in her hospice care which was revoked when patient was transferred to the hospital; we will discuss plan of care with POA; I will add Duragesic patch at 25 MCG and escalate therapy as needed Objective - Vital Signs Vital signs: Vital Signs Temp 97.5 F L 09/15/20 08:00 Pulse 87 09/15/20 11:00 Resp 16 09/15/20 11:00 BP 99/68 09/15/20 11:00 Pulse Ox 93 L 09/15/20 11:00 Intake & Output 09/14/20 09/15/20 09/15/20 18:59 06:59 18:59 Intake Total 1684.00 1231.867 800 Output Total 470 390 70 Balance 1214.00 841.867 730 Weight 143.5 kg Intake: IV 1176 900 800 Sodium Chloride 0.9% 1, 675 900 300 000 ml @ 75 mls/hr IV . [id number] MICHAEL Rx#:[id number] Vancomycin 2,000 mg In 501 500 Sodium Chloride 0.9% 500 ml 500 ml @ 167 mls/hr IVPB Q24H MICHAEL Rx#: [id number] Intake, IV Titration 508.00 31.867 Amount Norepinephrine 4 mg In 508.00 31.867 Sodium Chloride 0.9% 250 ml @ 0.05 MCG/KG/MIN 25. 908 mls/hr IV .Q9H49M MICHAEL Rx#:[id number] Oral 300 Output: Urine 470 390 70 Other: Voiding Method Indwelling Catheter Indwelling Catheter Indwelling Catheter - Exam - Constitutional General appearance: Present: average body habitus, cooperative, no acute distress Neck: Present: normal ROM. Absent: lymphadenopathy, rigidity, thyromegaly Respiratory: bilateral: CTA, negative: rales, rhonchi, wheezing - Cardiovascular Rhythm: regular Heart sounds: normal: S1, S2 Abnormal Heart Sounds: Absent: systolic murmur, diastolic murmur Gastrointestinal; normal bowel sounds, soft. Absent: distended, organomegaly, tenderness Genitourinary: deferred Integumentary: Stage IV decubitus ulcer Neurologic: Present: CNII-XII intact. Absent: focal deficits Musculoskeletal: Reports marked tenderness both knees; unable to move lower extremities - Labs CBC & Chem 7: 09/15/20 03:52 09/15/20 03:52 Labs: Abnormal Lab Results - Last 24 Hours (Table) 09/14/20 09/14/20 09/14/20 Range/Units 12:29 15:48 17:01 WBC (3.8-10.6) k/uL RBC (4.30-5.90) m/uL Hgb (13.0-17.5) gm/dL Hct (39.0-53.0) % RDW (11.5-15.5) % Neutrophils # (Manual) (1.3-7.7) k/uL Lymphocytes # (Manual) (1.0-4.8) k/uL Sodium (137-145) mmol/L Carbon Dioxide (22-30) mmol/L BUN (9-20) mg/dL Glucose (74-99) mg/dL POC Glucose (mg/dL) 140 H (75-99) mg/dL Plasma Lactic Acid Osiel 2.6 H* 2.7 H* (0.7-2.0) mmol/L Calcium (8.4-10.2) mg/dL AST (17-59) U/L Alkaline Phosphatase (38-126) U/L C-Reactive Protein (<10.0) mg/L Total Protein (6.3-8.2) g/dL Albumin (3.5-5.0) g/dL 09/14/20 09/15/20 09/15/20 Range/Units 21:06 03:52 03:52 WBC 38.7 H (3.8-10.6) k/uL RBC 2.84 L (4.30-5.90) m/uL Hgb 8.6 L (13.0-17.5) gm/dL Hct 27.3 L (39.0-53.0) % RDW 15.7 H (11.5-15.5) % Neutrophils # (Manual) 37.50 H (1.3-7.7) k/uL Lymphocytes # (Manual) 0.39 L (1.0-4.8) k/uL Sodium 134 L (137-145) mmol/L Carbon Dioxide 20 L (22-30) mmol/L BUN 25 H (9-20) mg/dL Glucose 123 H (74-99) mg/dL POC Glucose (mg/dL) 132 H (75-99) mg/dL Plasma Lactic Acid Osiel (0.7-2.0) mmol/L Calcium 6.8 L (8.4-10.2) mg/dL AST 84 H (17-59) U/L Alkaline Phosphatase 512 H (38-126) U/L C-Reactive Protein 416.0 H (<10.0) mg/L Total Protein 5.6 L (6.3-8.2) g/dL Albumin 1.6 L (3.5-5.0) g/dL 09/15/20 09/15/20 Range/Units 07:07 11:37 WBC (3.8-10.6) k/uL RBC (4.30-5.90) m/uL Hgb (13.0-17.5) gm/dL Hct (39.0-53.0) % RDW (11.5-15.5) % Neutrophils # (Manual) (1.3-7.7) k/uL Lymphocytes # (Manual) (1.0-4.8) k/uL Sodium (137-145) mmol/L Carbon Dioxide (22-30) mmol/L BUN (9-20) mg/dL Glucose (74-99) mg/dL POC Glucose (mg/dL) 145 H 124 H (75-99) mg/dL Plasma Lactic Acid Osiel (0.7-2.0) mmol/L Calcium (8.4-10.2) mg/dL AST (17-59) U/L Alkaline Phosphatase (38-126) U/L C-Reactive Protein (<10.0) mg/L Total Protein (6.3-8.2) g/dL Albumin (3.5-5.0) g/dL Microbiology - Last 24 Hours (Table) 09/12/20 15:00 Blood Culture Gram Stain - Preliminary Blood Blood Culture - Preliminary Staphylococcus epidermidis Anaerobic Gm Negative Bacilli 09/13/20 17:00 Blood Culture - Preliminary Blood No Growth after 24 hours 09/12/20 15:30 Gram Stain - Final Buttock Wound Culture - Final Escherichia coli Proteus mirabilis Enterococcus faecium VRE 09/12/20 15:18 Urine Culture - Final Urine,Voided Kirstie albicans 09/12/20 15:18 Blood Culture - Preliminary Blood No Growth after 48 hours 09/12/20 15:00 Blood Culture - Final Blood Assessment and Plan Assessment: 1. Gram-positive cocci bacteremia - Patient remains on broad-spectrum IV antibiotics; ID on board 2. Sepsis; patient remains in ICU and blood pressure remained soft on IV Levophed; critical care on 3. Infected stage IV decubitus ulcer; wound care consult in place; patient m ight need surgical debridement pending clinical course 4. Altered mental status/metabolic versus toxic encephalopathy- multifactorial; continue with treatment of underlying condition 5. Electrolyte imbalance/hyponatremia; remains on IV fluid hydration; continue to monitor electrolytes closely 6. Acute renal failure/ATN; patient is being maintained on IV fluids with close monitoring of strict PARK's, daily weights, renal function and electrolytes; avoid nephrotoxic agents 7. UTI, present on admission; urine culture reveals greater than 100,000 yeast; we will add IV Diflucan and await further recommendations from ID 8. COPD/asthma not in exacerbation; continue with home inhaler therapy 9. Hyperlipidemia; Lipitor 40 mg by mouth daily at bedtime 10. CAD/CHF; aspirin, statins 11. Morbid obesity/obstructive sleep apnea DVT prophylaxis; subcu heparin CODE STATUS; full code
[2020-09-15 16:32] LABS: Glucose,Whole Blood 119 mg/dL (75-99)
[2020-09-15] MEDS: CEFEPIME 2 GM in SODIUM CHLORIDE 0.9% 100 ML IVPB SCH ×2 (17:08→23:55)
[2020-09-15] MEDS: ATORVASTATIN 40 MG TAB PO SCH (20:48)
[2020-09-15] MEDS: MELATONIN 5 MG TABLET PO SCH (20:50)
[2020-09-15 22:00] LABS: Glucose,Whole Blood 142 mg/dL (75-99)
[2020-09-16] MEDS: HYDROmorphone 0.5 MG/0.5 ML SYRINGE IVP PRN ×6 (03:02→22:01)
[2020-09-16 05:06] LABS: African American GFR (CKD) >90 (>60 ml/min/1.73 sqM); Anion Gap 13 mmol/L; Blood Urea Nitrogen 25 mg/dL (9-20); Calcium 6.8 mg/dL (8.4-10.2); Carbon Dioxide 15 mmol/L (22-30); Chloride 108 mmol/L (98-107); Glucose 102 mg/dL (74-99); Non-African American GFR(CKD) >90 (>60 ml/min/1.73 sqM); Potassium 4.3 mmol/L (3.5-5.1); Sodium 136 mmol/L (137-145)
[2020-09-16 05:13] LABS: Anisocytosis Slight; HCT 28.3 % (39.0-53.0); HGB 8.9 gm/dL (13.0-17.5); Hypochromasia Slight; MCH 29.7 pg (25.0-35.0); MCHC 31.6 g/dL (31.0-37.0); MCV 93.9 fL (80.0-100.0); Mean Platelet Volume 7.7; Platelet Count 303 k/uL (150-450); RBC 3.02 m/uL (4.30-5.90); RDW 16.2 % (11.5-15.5); WBC 33.6 k/uL (3.8-10.6)
[2020-09-16 05:35] LABS: Band Neutrophils % 3 %; Eosinophils # (M) 0.34 k/uL (0-0.7); Lymphocytes # (M) 2.35 k/uL (1.0-4.8); Metamyelocytes # (M) 0.34 k/uL (0); Metamyelocytes % 1 %; Monocytes # (M) 1.34 k/uL (0-1.0); Neutrophils % (M) 86 %; Nucleated Red Blood Cells 0 /100 WBC (0-0); Total Cells Counted 200
[2020-09-16 05:36] LABS: Polychromasia Present
[2020-09-16] MEDS: SODIUM CHLORIDE 0.9% 1,000 ML IV SCH ×2 (05:43→12:30)
[2020-09-16 06:15] LABS: C Reactive Protein 485.9 mg/L (<10.0)
[2020-09-16] MEDS: PANTOPRAZOLE 40 MG TABLET PO SCH (06:30)
[2020-09-16] MEDS: NOREPINEPHRINE 4 MG in SODIUM CHLORIDE 0.9% 250 ML IV SCH (06:44)
[2020-09-16 07:00] LABS: Glucose,Whole Blood 122 mg/dL (75-99)
[2020-09-16] MEDS: CEFEPIME 2 GM in SODIUM CHLORIDE 0.9% 100 ML IVPB SCH ×2 (08:29→15:39)
--- NOTE | 2020-09-16 10:13 | P.PN ---
Subjective Progress Note Date: 09/16/20 (Critical care time spent 35 minutes) Principal diagnosis: Septic shock Large sacral decubitus ulcer and osteomyelitis Gram-positive bacteremia Altered mental status encephalopathy Presume adrenal insufficiency Chronic hyponatremia Acute kidney injury due to ATN Urinary tract infection Morbid obesity obstructive sleep apnea 09/16/2020, patient seen eval examined during the rounds currently resting blood pressure remains on the low side remains on levo fed drip 0.45, blood pressure has been low we'll give another fluid boluses, continue broad-spectrum antibiotics, chest x-ray remains stable, labs reviewed culture results reviewed tried to taper down the levo fed drip, we'll send a cortisol level and restart hydrocortisone for now, patient sleeps most of time when wakes up so pain medicines, repeat blood culture obtained on the Fabry 17 no growth so far, wound culture is positive for E. coli Proteus enterococcus, blood culture initially were positive for anaerobic gram-negative bacilli and staph epi likely contaminant, white cell count is coming down and now is 33, hemoglobin remained stable 8.9, renal function continued to improve latest BUN/creatinine 25 and 0.7 to lactic acid level is down 1.7 60-year-old male morbidly obese large sacral decubitus ulcer as well as chronic lower extremity edema and venous stasis ulcer with chronic pain syndrome was noted by ECF to be hypotensive and tachycardic transferred to emergency department for further evaluation patient has been back and forth off and on hospice with full medical care and management, patient due to hypertension was place in ICU and has been rehydrated and started on broad-spectrum antibiotics and vasopressors with that blood pressure came up, on the symptom that he described his leg pain and wants more pain medications, his chest x-ray suggestive of the chronic changes in the parenchyma of active infiltrate identified, labs are significant for white cell count of 46,000 and hemoglobin of 9, BUN/creatinine are 22 and 1.08, lactic acid is 2.2 and 2.7, alk phos elevated for 77, calcium is reduced to 7.0 but with low albumin of 1.8, blood culture positive for coag-negative staph likely contaminant urine positive for yeast species, wound culture from the last sacral decubitus ulcer growing polymicrobial pattern with gram-negative bacilli as well as enterococcus Objective - Vital Signs Vital signs: Vital Signs Temp 96.9 F L 09/16/20 04:00 Pulse 98 09/16/20 09:00 Resp 14 09/16/20 09:00 BP 88/54 09/16/20 09:00 Pulse Ox 93 L 09/16/20 09:00 Intake & Output 09/15/20 09/16/20 09/16/20 18:59 06:59 18:59 Intake Total 1650 1462.458 325 Output Total 370 465 345 Balance 1280 997.458 -20 Weight 144 kg Intake: IV 1400 1000 325 Cefepime 2 gm In Sodium 100 100 Chloride 0.9% 100 ml @ 25 mls/hr IVPB Q8HR [facility] Rx# :[id number] Sodium Chloride 0.9% 1, 900 900 225 000 ml @ 75 mls/hr IV . [id number] [facility] Rx#:[id number] Vancomycin 2,000 mg In 500 Sodium Chloride 0.9% 500 ml 500 ml @ 167 mls/hr IVPB Q24H [facility] Rx#: [id number] Intake, IV Titration 250 462.458 Amount Ampicillin-Sulbactam 3 gm 100 In Sodium Chloride 0.9% 100 ml @ 200 mls/hr IVPB Q6HR [facility] Rx#:[id number] Cefepime 2 gm In Sodium 100 Chloride 0.9% 100 ml @ 25 mls/hr IVPB Q8HR [facility] Rx# :[id number] DAPTOmycin 850 mg In 50 Sodium Chloride 0.9% 50 ml @ 100 mls/hr IVPB Q24H [facility] Rx#:[id number] Norepinephrine 4 mg In 462.458 Sodium Chloride 0.9% 250 ml @ 0.05 MCG/KG/MIN 25. 908 mls/hr IV .[id number] [facility] Rx#:[id number] Output: Urine 370 365 345 Stool 100 Other: Voiding Method Indwelling Catheter Indwelling Catheter - Exam - Constitutional General appearance: disheveled, morbidly obese - EENT Eyes: PERRLA Ears: bilateral: normal - Neck Carotids: bilateral: upstroke normal Thyroid: negative: normal size - Respiratory Respiratory: bilateral: CTA, diminished - Cardiovascular Rhythm: regular Heart sounds: normal: S1, S2 - Gastrointestinal General gastrointestinal: distended, soft - Integumentary Integumentary: cellulitis, cyanotic - Neurologic Neurologic: CNII-XII intact - Musculoskeletal Musculoskeletal: generalized weakness - Psychiatric Psychiatric: A&O x's 3 - Labs CBC & Chem 7: 09/16/20 03:26 09/16/20 03:31 Labs: Abnormal Lab Results - Last 24 Hours (Table) 09/15/20 09/15/20 09/15/20 Range/Units 03:52 11:37 16:30 WBC (3.8-10.6) k/uL RBC (4.30-5.90) m/uL Hgb (13.0-17.5) gm/dL Hct (39.0-53.0) % RDW (11.5-15.5) % Neutrophils # (Manual) (1.3-7.7) k/uL Monocytes # (Manual) (0-1.0) k/uL Metamyelocytes # (Man) (0) k/uL Sodium (137-145) mmol/L Chloride (98-107) mmol/L Carbon Dioxide (22-30) mmol/L BUN (9-20) mg/dL Glucose (74-99) mg/dL POC Glucose (mg/dL) 124 H 119 H (75-99) mg/dL Calcium (8.4-10.2) mg/dL C-Reactive Protein (<10.0) mg/L Procalcitonin 2.26 H (0.02-0.09) ng/mL 09/15/20 09/16/20 09/16/20 Range/Units 21:58 03:26 03:31 WBC 33.6 H (3.8-10.6) k/uL RBC 3.02 L (4.30-5.90) m/uL Hgb 8.9 L (13.0-17.5) gm/dL Hct 28.3 L (39.0-53.0) % RDW 16.2 H (11.5-15.5) % Neutrophils # (Manual) 29.90 H (1.3-7.7) k/uL Monocytes # (Manual) 1.34 H (0-1.0) k/uL Metamyelocytes # (Man) 0.34 H (0) k/uL Sodium 136 L (137-145) mmol/L Chloride 108 H (98-107) mmol/L Carbon Dioxide 15 L (22-30) mmol/L BUN 25 H (9-20) mg/dL Glucose 102 H (74-99) mg/dL POC Glucose (mg/dL) 142 H (75-99) mg/dL Calcium 6.8 L (8.4-10.2) mg/dL C-Reactive Protein 485.9 H (<10.0) mg/L Procalcitonin (0.02-0.09) ng/mL 09/16/20 Range/Units 06:59 WBC (3.8-10.6) k/uL RBC (4.30-5.90) m/uL Hgb (13.0-17.5) gm/dL Hct (39.0-53.0) % RDW (11.5-15.5) % Neutrophils # (Manual) (1.3-7.7) k/uL Monocytes # (Manual) (0-1.0) k/uL Metamyelocytes # (Man) (0) k/uL Sodium (137-145) mmol/L Chloride (98-107) mmol/L Carbon Dioxide (22-30) mmol/L BUN (9-20) mg/dL Glucose (74-99) mg/dL POC Glucose (mg/dL) 122 H (75-99) mg/dL Calcium (8.4-10.2) mg/dL C-Reactive Protein (<10.0) mg/L Procalcitonin (0.02-0.09) ng/mL Microbiology - Last 24 Hours (Table) 09/13/20 17:00 Blood Culture - Preliminary Blood No Growth after 48 hours 09/12/20 15:18 Blood Culture - Preliminary Blood No Growth after 72 hours 09/12/20 15:00 Blood Culture Gram Stain - Preliminary Blood Blood Culture - Preliminary Staphylococcus epidermidis Anaerobic Gm Negative Bacilli Assessment and Plan Assessment: Septic shock Large sacral decubitus ulcer and osteomyelitis Gram-negative bacteremia Altered mental status encephalopathy Presume adrenal insufficiency Chronic hyponatremia Acute kidney injury due to ATN Urinary tract infection Morbid obesity obstructive sleep apnea Plan: Continue daptomycin with several time Continue wound care Pain management Continue supplemental oxygen Deep breathing sense incentive spirometry Fluid bolus of 250 mL IV hydrocortisone Cortisol level Taper and DC the levo fed drip Monitor renal functions closely Wound care If patient remains off of levo fed drip can be moved out of the ICU Time with Patient: Greater than 30
[2020-09-16] MEDS: ASCORBIC ACID 500 MG TAB PO SCH (10:48)
[2020-09-16] MEDS: ASPIRIN 81 MG PO SCH (10:48)
[2020-09-16] MEDS: FLUCONAZOLE 100 MG TAB PO SCH (10:48)
[2020-09-16] MEDS: GABAPENTIN 300 MG CAP PO SCH ×3 (10:48→20:42)
[2020-09-16] MEDS: MAGNESIUM OXIDE 400 MG TAB PO SCH ×2 (10:48→17:33)
[2020-09-16] MEDS: HEPARIN SODIUM,PORCINE 5,000 UNIT/ML 1 ML VIAL SQ SCH ×2 (10:48→20:42)
[2020-09-16] MEDS: POTASSIUM CHLORIDE ER 20 MEQ TAB.ER PO SCH ×2 (10:48→17:33)
[2020-09-16] MEDS: FERROUS SULFATE 325 MG TAB PO SCH ×2 (10:48→17:33)
[2020-09-16] MEDS ORDERED: SODIUM CHLORIDE 0.9% 250 ML IV SCH (11:00)
[2020-09-16] MEDS: HYDROCORTISONE SUCCINATE 100 MG/2 ML VIAL IV SCH ×2 (11:00→20:42)
[2020-09-16 11:34] LABS: Glucose,Whole Blood 110 mg/dL (75-99)
--- NOTE | 2020-09-16 13:28 | P.PN ---
Subjective Progress Note Date: 09/16/20 Principal diagnosis: Bacteremia with gram-positive cocci/sepsis Infected stage IV decubitus ulcer Hyponatremia Acute renal injury/ATN 60-year-old male patient with past medical history of hypertension, diabetes, CAD/CHF, obstructive sleep apnea and morbid obesity, admitted to the hospital with infected stage IV decubitus ulcer and acute sepsis; patient was transferred to ICU versus severe hypertension and is being maintained on IV Levophed 09/14/2020 Patient is seen and evaluated in room in ICU; reports severe pain in both knees and wants them repositioned; reports improvement in pain with pain medication; patient is status post PICC line placement and x-rays stable Patient remains on IV vancomycin with pharmacy dosing service; Zosyn has been sw itched to IV Unasyn decrease risk of nephrotoxicity; blood cultures are repeated and results are pending; wound care consult in place for aggressive local wound care for the possibility of surgical debridement, pending response to IV antibiotic Patient has been previously admitted to hospice care; ID recommending 2-D consult hospice if patient doesn't desire any aggressive treatment 09/15/2020 Patient is seen and evaluated in ICU; discussed in great detail with nursing staff; patient has been refusing all treatment and medications due to uncontrolled pain; remains on IV Dilaudid 0.5 mg every 4 hours when necessary; patient has been refusing oral [place]; vital signs are reviewed; remains afebrile with temperature of 98.5, pulse 90, blood pressure of 124/76 Laboratory review shows CBC with a white blood count of 8.7, hemoglobin 8.3, B UN/creatinine of 25/0.85; CRP of 416 Wound culture is positive for E. coli, Proteus and VRE; urine culture reveals Kirstei albicans; blood culture is positive for staph epidermidis Patient remains on IV antibiotics for sepsis with suspected source infected sacral decubitus ulcer with possible osteomyelitis; IDs on board and dai mmending possible extensive surgical debridement and local care; IV antibiotics have been changed to cefepime and daptomycin Patient previously has been in her hospice care which was revoked when patient was transferred to the hospital; we will discuss plan of care with POA; I will add Duragesic patch at 25 MCG and escalate therapy as needed 09/16/2020 Patient is seen and evaluated at bedside; remains in ICU; patient remains on IV Levophed for low blood pressure; received IV fluid bolus this morning; currently blood pressure is 88/54; critical care recommending to start hydrocortisone and send cortisol level; patient remains afebrile Chest x-ray remained stable; lab review shows a white blood count slightly improved from yesterday down to 33,000, hemoglobin at 8.9, BUN/creatinine of 25/0.7, lactic acid is down to 1.7, wound culture is positive for E. coli, Prote us, enterococcus; initial blood culture revealed gram-negative bacilli and staph epi most likely contamination; repeat blood cultures are so far negative; patient remains on IV antibiotics in form of cefepime and daptomycin; ID has recommended possible surgical debridement; we plan to discuss plan of care with DPOA prior to obtaining a surgery consult Pain management seems optimal Objective - Vital Signs Vital signs: Vital Signs Temp 96.9 F L 09/16/20 04:00 Pulse 98 09/16/20 09:00 Resp 14 09/16/20 09:00 BP 88/54 09/16/20 09:00 Pulse Ox 93 L 09/16/20 09:00 Intake & Output 09/15/20 09/16/20 09/16/20 18:59 06:59 18:59 Intake Total 1650 1462.458 325 Output Total 370 465 345 Balance 1280 997.458 -20 Weight 144 kg Intake: IV 1400 1000 325 Cefepime 2 gm In Sodium 100 100 Chloride 0.9% 100 ml @ 25 mls/hr IVPB Q8HR [facility] Rx# :[id number] Sodium Chloride 0.9% 1, 900 900 225 000 ml @ 75 mls/hr IV . [id number] [facility] Rx#:[id number] Vancomycin 2,000 mg In 500 Sodium Chloride 0.9% 500 ml 500 ml @ 167 mls/hr IVPB Q24H [facility] Rx#: [id number] Intake, IV Titration 250 462.458 Amount Ampicillin-Sulbactam 3 gm 100 In Sodium Chloride 0.9% 100 ml @ 200 mls/hr IVPB Q6HR [facility] Rx#:[id number] Cefepime 2 gm In Sodium 100 Chloride 0.9% 100 ml @ 25 mls/hr IVPB Q8HR [facility] Rx# :[id number] DAPTOmycin 850 mg In 50 Sodium Chloride 0.9% 50 ml @ 100 mls/hr IVPB Q24H [facility] Rx#:[id number] Norepinephrine 4 mg In 462.458 Sodium Chloride 0.9% 250 ml @ 0.05 MCG/KG/MIN 25. 908 mls/hr IV .Q9H49M [facility] Rx#:[id number] Output: Urine 370 365 345 Stool 100 Other: Voiding Method Indwelling Catheter Indwelling Catheter - Exam - Constitutional General appearance: Present: average body habitus, cooperative, no acute distress Neck: Present: normal ROM. Absent: lymphadenopathy, rigidity, thyromegaly Respiratory: bilateral: CTA, negative: rales, rhonchi, wheezing - Cardiovascular Rhythm: regular Heart sounds: normal: S1, S2 Abnormal Heart Sounds: Absent: systolic murmur, diastolic murmur Gastrointestinal; normal bowel sounds, soft. Absent: distended, organomegaly, tenderness Genitourinary: deferred Integumentary: Stage IV decubitus ulcer Neurologic: Present: CNII-XII intact. Absent: focal deficits Musculoskeletal: Reports marked tenderness both knees; unable to move lower extremities - Labs CBC & Chem 7: 09/16/20 03:26 09/16/20 03:31 Labs: Abnormal Lab Results - Last 24 Hours (Table) 09/15/20 09/15/20 09/15/20 Range/Units 03:52 11:37 16:30 WBC (3.8-10.6) k/uL RBC (4.30-5.90) m/uL Hgb (13.0-17.5) gm/dL Hct (39.0-53.0) % RDW (11.5-15.5) % Neutrophils # (Manual) (1.3-7.7) k/uL Monocytes # (Manual) (0-1.0) k/uL Metamyelocytes # (Man) (0) k/uL Sodium (137-145) mmol/L Chloride (98-107) mmol/L Carbon Dioxide (22-30) mmol/L BUN (9-20) mg/dL Glucose (74-99) mg/dL POC Glucose (mg/dL) 124 H 119 H (75-99) mg/dL Calcium (8.4-10.2) mg/dL C-Reactive Protein (<10.0) mg/L Procalcitonin 2.26 H (0.02-0.09) ng/mL 09/15/20 09/16/20 09/16/20 Range/Units 21:58 03:26 03:31 WBC 33.6 H (3.8-10.6) k/uL RBC 3.02 L (4.30-5.90) m/uL Hgb 8.9 L (13.0-17.5) gm/dL Hct 28.3 L (39.0-53.0) % RDW 16.2 H (11.5-15.5) % Neutrophils # (Manual) 29.90 H (1.3-7.7) k/uL Monocytes # (Manual) 1.34 H (0-1.0) k/uL Metamyelocytes # (Man) 0.34 H (0) k/uL Sodium 136 L (137-145) mmol/L Chloride 108 H (98-107) mmol/L Carbon Dioxide 15 L (22-30) mmol/L BUN 25 H (9-20) mg/dL Glucose 102 H (74-99) mg/dL POC Glucose (mg/dL) 142 H (75-99) mg/dL Calcium 6.8 L (8.4-10.2) mg/dL C-Reactive Protein 485.9 H (<10.0) mg/L Procalcitonin (0.02-0.09) ng/mL 09/16/20 Range/Units 06:59 WBC (3.8-10.6) k/uL RBC (4.30-5.90) m/uL Hgb (13.0-17.5) gm/dL Hct (39.0-53.0) % RDW (11.5-15.5) % Neutrophils # (Manual) (1.3-7.7) k/uL Monocytes # (Manual) (0-1.0) k/uL Metamyelocytes # (Man) (0) k/uL Sodium (137-145) mmol/L Chloride (98-107) mmol/L Carbon Dioxide (22-30) mmol/L BUN (9-20) mg/dL Glucose (74-99) mg/dL POC Glucose (mg/dL) 122 H (75-99) mg/dL Calcium (8.4-10.2) mg/dL C-Reactive Protein (<10.0) mg/L Procalcitonin (0.02-0.09) ng/mL Microbiology - Last 24 Hours (Table) 09/13/20 17:00 Blood Culture - Preliminary Blood No Growth after 48 hours 09/12/20 15:18 Blood Culture - Preliminary Blood No Growth after 72 hours 09/12/20 15:00 Blood Culture Gram Stain - Preliminary Blood Blood Culture - Preliminary Staphylococcus epidermidis Anaerobic Gm Negative Bacilli Assessment and Plan Assessment: 1. Gram-positive cocci bacteremia - Patient remains on broad-spectrum IV antibiotics; ID on board 2. Sepsis; patient remains in ICU and blood pressure remained soft on IV Levophed; critical care on 3. Infected stage IV decubitus ulcer; wound care consult in place; patient might need surgical debridement pending clinical course 4. Altered mental status/metabolic versus toxic encephalopathy- multifactorial; continue with treatment of underlying condition 5. Electrolyte imbalance/hyponatremia; remains on IV fluid hydration; continue to monitor electrolytes closely 6. Acute renal failure/ATN; patient is being maintained on IV fluids with close monitoring of strict PARK's, daily weights, renal function and electrolytes; avoid nephrotoxic agents 7. UTI, present on admission; urine culture reveals greater than 100,000 yeast; we will add IV Diflucan and await further recommendations from ID 8. COPD/asthma not in exacerbation; continue with home inhaler therapy 9. Hyperlipidemia; Lipitor 40 mg by mouth daily at bedtime 10. CAD/CHF; aspirin, statins 11. Morbid obesity/obstructive sleep apnea DVT prophylaxis; subcu heparin CODE STATUS; full code
[2020-09-16] MEDS: HYDROcodone/APAP 5-325MG 1 EACH TAB PO PRN ×2 (13:38→20:41)
[2020-09-16 17:05] LABS: Glucose,Whole Blood 128 mg/dL (75-99)
--- NOTE | 2020-09-16 19:50 | PN ---
PROGRESS NOTE DATE OF SERVICE: 09/16/2020 REASON FOR FOLLOW UP: Sacral osteomyelitis, bacteremia and UTI. INTERVAL HISTORY: Patient is currently afebrile. The patient is breathing comfortably. The patient complaining of pain all over and wanted more pain medication. Denies having any chest pain or cough. No abdominal pain. No diarrhea. PHYSICAL EXAMINATION: Blood pressure 95/55, pulse of 97. Temperature 97.8. He is 95% on room air. GENERAL DESCRIPTION: The patient is a middle-aged male lying in bed in no distress. RESPIRATORY SYSTEM: Unlabored breathing. Clear to auscultation anteriorly. HEART: S1, S2. Regular rate and rhythm. ABDOMEN: Soft, no tenderness. LABS: Hemoglobin is 8.9 with white count 3.6, BUN of 25, creatinine 0.72. DIAGNOSTIC IMPRESSION AND PLAN: 1. Patient with stage IV sacral pressure ulcer with underlying osteomyelitis with multiple pathogens including E coli, Proteus and VRE. The patient will need aggressive surgical debridement and local wound care for which the patient will be transferred to tertiary care provided here versus comfort or hospice oriented care. For now, the patient is covered with cefepime and daptomycin to continue. Prognosis remains to be guarded. 2. Patient with a positive urine culture with Kirstie albicans. Continue with short course of Diflucan. MMODL / IJN: [id number] /
[2020-09-16 20:29] LABS: Glucose,Whole Blood 121 mg/dL (75-99)
[2020-09-16] MEDS: ATORVASTATIN 40 MG TAB PO SCH (20:42)
[2020-09-16] MEDS: MELATONIN 5 MG TABLET PO SCH (20:42)
[2020-09-17] MEDS: NOREPINEPHRINE 4 MG in SODIUM CHLORIDE 0.9% 250 ML IV SCH (03:15)
[2020-09-17] MEDS: CEFEPIME 2 GM in SODIUM CHLORIDE 0.9% 100 ML IVPB SCH ×3 (03:16→16:04)
[2020-09-17] MEDS: HYDROcodone/APAP 5-325MG 1 EACH TAB PO PRN ×2 (03:18→11:19)
[2020-09-17] MEDS: HYDROmorphone 0.5 MG/0.5 ML SYRINGE IVP PRN ×4 (03:19→17:42)
[2020-09-17 04:55] LABS: Anisocytosis Slight; Basophils # (A) 0.2 k/uL (0-0.2); Basophils % (A) 0 %; Eosinophils # (A) 0.1 k/uL (0-0.7); Eosinophils % (A) 0 %; HCT 28.4 % (39.0-53.0); HGB 8.5 gm/dL (13.0-17.5); Hypochromasia Marked; Lymphocytes # (A) 2.7 k/uL (1.0-4.8); Lymphocytes % (A) 6 %; MCH 28.5 pg (25.0-35.0); MCV 95.1 fL (80.0-100.0); Mean Platelet Volume 7.7; Monocytes # (A) 0.8 k/uL (0-1.0); Monocytes % (A) 2 %; Neutrophils # (A) 40.4 k/uL (1.3-7.7); Neutrophils % (A) 91 %; Platelet Count 344 k/uL (150-450); RBC 2.98 m/uL (4.30-5.90); RDW 16.3 % (11.5-15.5); WBC 44.4 k/uL (3.8-10.6)
[2020-09-17 04:59] LABS: African American GFR (CKD) >90 (>60 ml/min/1.73 sqM); Anion Gap 7 mmol/L; Blood Urea Nitrogen 27 mg/dL (9-20); Calcium 6.9 mg/dL (8.4-10.2); Carbon Dioxide 20 mmol/L (22-30); Chloride 108 mmol/L (98-107); Glucose 120 mg/dL (74-99); Non-African American GFR(CKD) 89 (>60 ml/min/1.73 sqM); Potassium 4.4 mmol/L (3.5-5.1); Sodium 135 mmol/L (137-145)
[2020-09-17 05:35] LABS: C Reactive Protein 411.4 mg/L (<10.0)
[2020-09-17] MEDS: PANTOPRAZOLE 40 MG TABLET PO SCH (06:30)
[2020-09-17] MEDS: SODIUM CHLORIDE 0.9% 1,000 ML IV SCH (09:05)
[2020-09-17] MEDS: ASCORBIC ACID 500 MG TAB PO SCH (09:06)
[2020-09-17] MEDS: ASPIRIN 81 MG PO SCH (09:06)
[2020-09-17] MEDS: FERROUS SULFATE 325 MG TAB PO SCH ×2 (09:06→16:04)
[2020-09-17] MEDS: FLUCONAZOLE 100 MG TAB PO SCH (09:06)
[2020-09-17] MEDS: POTASSIUM CHLORIDE ER 20 MEQ TAB.ER PO SCH ×2 (09:07→16:05)
[2020-09-17] MEDS: MAGNESIUM OXIDE 400 MG TAB PO SCH ×2 (09:07→16:04)
[2020-09-17] MEDS: HEPARIN SODIUM,PORCINE 5,000 UNIT/ML 1 ML VIAL SQ SCH (09:07)
[2020-09-17] MEDS: HYDROCORTISONE SUCCINATE 100 MG/2 ML VIAL IV SCH (09:07)
[2020-09-17] MEDS: GABAPENTIN 300 MG CAP PO SCH ×2 (09:07→13:02)
--- NOTE | 2020-09-17 10:58 | P.PN ---
Subjective Progress Note Date: 09/17/20 Principal diagnosis: Septic shock Large sacral decubitus ulcer and osteomyelitis Gram-positive bacteremia Altered mental status encephalopathy Presume adrenal insufficiency Chronic hyponatremia Acute kidney injury due to ATN Urinary tract infection Morbid obesity obstructive sleep apnea 09/17/2020, patient remain on room air saturation is 98%, breathing comfortably hemodynamic status stable, white cell count up likely due to steroids, cortisone level normal, patient remains on broad-spectrum antibiotics patient remains on levo fed for hemodynamic support unable to get him off of pressors 09/16/2020, patient seen eval examined during the rounds currently resting blood pressure remains on the low side remains on levo fed drip 0.45, blood pressure has been low we'll give another fluid boluses, continue broad-spectrum antibiotics, chest x-ray remains stable, labs reviewed culture results reviewed tried to taper down the levo fed drip, we'll send a cortisol level and restart hydrocortisone for now, patient sleeps most of time when wakes up so pain medicines, repeat blood culture obtained on the Fabry 17 no growth so far, wound culture is positive for E. coli Proteus enterococcus, blood culture initially were positive for anaerobic gram-negative bacilli and staph epi likely contaminant, white cell count is coming down and now is 33, hemoglobin remained stable 8.9, renal function continued to improve latest BUN/creatinine 25 and 0.7 to lactic acid level is down 1.7 60-year-old male morbidly obese large sacral decubitus ulcer as well as chronic lower extremity edema and venous stasis ulcer with chronic pain syndrome was noted by ECF to be hypotensive and tachycardic transferred to emergency department for further evaluation patient has been back and forth off and on hospice with full medical care and management, patient due to hypertension was place in ICU and has been rehydrated and started on broad-spectrum antibiotics and vasopressors with that blood pressure came up, on the symptom that he described his leg pain and wants more pain medications, his chest x-ray suggestive of the chronic changes in the parenchyma of active infiltrate iden tified, labs are significant for white cell count of 46,000 and hemoglobin of 9, BUN/creatinine are 22 and 1.08, lactic acid is 2.2 and 2.7, alk phos elevated for 77, calcium is reduced to 7.0 but with low albumin of 1.8, blood culture positive for coag-negative staph likely contaminant urine positive for yeast species, wound culture from the last sacral decubitus ulcer growing polymicrobial pattern with gram-negative bacilli as well as enterococcus Objective - Vital Signs Vital signs: Vital Signs Temp 97.7 F 09/17/20 08:00 Pulse 98 09/17/20 10:00 Resp 10 L 09/17/20 10:00 BP 99/64 09/17/20 10:00 Pulse Ox 98 09/17/20 08:00 Intake & Output 09/16/20 09/17/20 09/17/20 18:59 06:59 18:59 Intake Total 2677.410 6886.914 431.524 Output Total 600 305 115 Balance 1204.983 713.914 316.524 Weight 139.9 kg Intake: IV 1100 1000 400 Cefepime 2 gm In Sodium 200 100 100 Chloride 0.9% 100 ml @ 25 mls/hr IVPB Q8HR [facility] Rx# :[id number] Sodium Chloride 0.9% 1, 900 900 300 000 ml @ 75 mls/hr IV . [id number] [facility] Rx#:[id number] Intake, IV Titration 484.983 18.914 31.524 Amount DAPTOmycin 850 mg In 50 Sodium Chloride 0.9% 50 ml @ 100 mls/hr IVPB Q24H [facility] Rx#:[id number] Norepinephrine 4 mg In 184.983 18.914 31.524 Sodium Chloride 0.9% 250 ml @ 0.05 MCG/KG/MIN 25. 908 mls/hr IV .Q9H49M [facility] Rx#:[id number] Sodium Chloride 0.9% 250 250 ml @ 999 mls/hr IV .Q16M [facility] Rx#:[id number] Oral 220 Output: Urine 600 305 115 Stool 0 Other: Voiding Method Indwelling Catheter Indwelling Catheter Indwelling Catheter - Exam - Constitutional General appearance: disheveled, morbidly obese - EENT Eyes: PERRLA Ears: bilateral: normal - Neck Carotids: bilateral: upstroke normal Thyroid: negative: normal size - Respiratory Respiratory: bilateral: CTA, diminished - Cardiovascular Rhythm: regular Heart sounds: normal: S1, S2 - Gastrointestinal General gastrointestinal: distended, soft - Integumentary Integumentary: cellulitis, cyanotic - Neurologic Neurologic: CNII-XII intact - Musculoskeletal Musculoskeletal: generalized weakness - Psychiatric Psychiatric: A&O x's 3 - Labs CBC & Chem 7: 09/17/20 04:26 09/17/20 04:26 Labs: Abnormal Lab Results - Last 24 Hours (Table) 09/16/20 09/16/20 09/16/20 Range/Units 11:33 17:03 20:27 WBC (3.8-10.6) k/uL RBC (4.30-5.90) m/uL Hgb (13.0-17.5) gm/dL Hct (39.0-53.0) % MCHC (31.0-37.0) g/dL RDW (11.5-15.5) % Neutrophils # (1.3-7.7) k/uL Sodium (137-145) mmol/L Chloride (98-107) mmol/L Carbon Dioxide (22-30) mmol/L BUN (9-20) mg/dL Glucose (74-99) mg/dL POC Glucose (mg/dL) 110 H 128 H 121 H (75-99) mg/dL Calcium (8.4-10.2) mg/dL C-Reactive Protein (<10.0) mg/L 09/17/20 09/17/20 Range/Units 04:26 04:26 WBC 44.4 H (3.8-10.6) k/uL RBC 2.98 L (4.30-5.90) m/uL Hgb 8.5 L (13.0-17.5) gm/dL Hct 28.4 L (39.0-53.0) % MCHC 30.0 L (31.0-37.0) g/dL RDW 16.3 H (11.5-15.5) % Neutrophils # 40.4 H (1.3-7.7) k/uL Sodium 135 L (137-145) mmol/L Chloride 108 H (98-107) mmol/L Carbon Dioxide 20 L (22-30) mmol/L BUN 27 H (9-20) mg/dL Glucose 120 H (74-99) mg/dL POC Glucose (mg/dL) (75-99) mg/dL Calcium 6.9 L (8.4-10.2) mg/dL C-Reactive Protein 411.4 H (<10.0) mg/L Microbiology - Last 24 Hours (Table) 09/13/20 17:00 Blood Culture - Preliminary Blood No Growth after 72 hours 09/12/20 15:18 Blood Culture - Preliminary Blood No Growth after 96 hours Assessment and Plan Assessment: Septic shock Large sacral decubitus ulcer and osteomyelitis Gram-negative bacteremia Altered mental status encephalopathy Presume adrenal insufficiency Chronic hyponatremia Acute kidney injury due to ATN Urinary tract infection Morbid obesity obstructive sleep apnea Plan: Continue daptomycin with several time Continue wound care Pain management Continue supplemental oxygen Deep breathing sense incentive spirometry Fluid boluses as needed IV hydrocortisone, continue to taper down Taper and DC the levo fed drip Monitor renal functions closely Wound care If patient remains off of levo fed drip can be moved out of the ICU
[2020-09-17 11:08] VITALS: BMI 44.2
[2020-09-17 11:42] LABS: Glucose,Whole Blood 135 mg/dL (75-99)
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
[2020-09-17 16:11] VITALS: TEMP 97.9
[2020-09-17 16:55] LABS: Glucose,Whole Blood 208 mg/dL (75-99)
[2020-09-17 17:11] VITALS: PULSE 92
[2020-09-17 18:10] VITALS: RESP 10
--- NOTE | 2020-09-17 18:10 | PN ---
PROGRESS NOTE DATE OF SERVICE: 09/17/2020 REASON FOR FOLLOWUP: Sacral osteomyelitis and bacteremia. INTERVAL HISTORY: The patient is currently afebrile. The patient is breathing comfortably. He has been complaining of pain all over. Denies having any chest pain or cough. No abdominal pain and no diarrhea has been reported. PHYSICAL EXAMINATION: Blood pressure 120/64 with a pulse of 70, temperature 97.9. He is 96% on room air. General description is a middle-aged male lying in bed in no distress. HEART: S1, S2. Regular rate and rhythm. ABDOMEN: Soft. No tenderness. LEGS: Significant swelling. LABS: Hemoglobin 8.5, white count 44.4, BUN of 26, creatinine 0.93. DIAGNOSTIC IMPRESSION AND PLAN: Patient with infected sacral pressure ulcer, for which the patient needs extensive surgical debridement and deep cultures. Superficial culture did show E coli, Proteus and VRE. The patient is currently covered with cefepime and daptomycin. However, the patient needs more extensive surgical debridement in order to completely clear up this infection or may benefit from hospice-oriented care. MMODL / IJN: [id number] /
[2020-09-17 19:01] VITALS: BP 83/70
--- NOTE | 2020-09-17 23:30 | P.PN ---
Subjective From records, 60-year-old male patient with past medical history of hypertension, diabetes, CAD/CHF, obstructive sleep apnea and morbid obesity, admitted to the hospital with infected stage IV decubitus ulcer and acute sepsis; patient was transferred to ICU versus severe hypertension and is being maintained on IV Levophed 09/14/2020 Patient is seen and evaluated in room in ICU; reports severe pain in both knees and wants them repositioned; reports improvement in pain with pain medication; patient is status post PICC line placement and x-rays stable Patient remains on IV vancomycin with pharmacy dosing service; Zosyn has been switched to IV Unasyn decrease risk of nephrotoxicity; blood cultures are repeated and results are pending; wound care consult in place for aggressive local wound care for the possibility of surgical debridement, pending response to IV antibiotic Patient has been previously admitted to hospice care; ID recommending 2-D consult hospice if patient doesn't desire any aggressive treatment 09/15/2020 Patient is seen and evaluated in ICU; discussed in great detail with nursing staff; patient has been refusing all treatment and medications due to uncontrolled pain; remains on IV Dilaudid 0.5 mg every 4 hours when necessary; patient has been refusing oral [place]; vital signs are reviewed; remains afebrile with temperature of 98.5, pulse 90, blood pressure of 124/76 Laboratory review shows CBC with a white blood count of 8.7, hemoglobin 8.3, B UN/creatinine of 25/0.85; CRP of 416 Wound culture is positive for E. coli, Proteus and VRE; urine culture reveals Kirstie albicans; blood culture is positive for staph epidermidis Patient remains on IV antibiotics for sepsis with suspected source infected sacral decubitus ulcer with possible osteomyelitis; IDs on board and recommending possible extensive surgical debridement and local care; IV antibiotics have been changed to cefepime and daptomycin Patient previously has been in her hospice care which was revoked when patient was transferred to the hospital; we will discuss plan of care with POA; I will add Duragesic patch at 25 MCG and escalate therapy as needed 09/16/2020 Patient is seen and evaluated at bedside; remains in ICU; patient remains on IV Levophed for low blood pressure; received IV fluid bolus this morning; currently blood pressure is 88/54; critical care recommending to start hydrocortisone and send cortisol level; patient remains afebrile Chest x-ray remained stable; lab review shows a white blood count slightly improved from yesterday down to 33,000, hemoglobin at 8.9, BUN/creatinine of 25/0.7, lactic acid is down to 1.7, wound culture is positive for E. coli, Proteus, enterococcus; initial blood culture revealed gram-negative bacilli and staph epi most likely contamination; repeat blood cultures are so far negative; patient remains on IV antibiotics in form of cefepime and daptomycin; ID has recommended possible surgical debridement; we plan to discuss plan of care with DPOA prior to obtaining a surgery consult Pain management seems optimal Subjective: This is the first day and taking care of the patient Patient could not provide full information consult was obtained from the records, staff. This is a pleasant 62 years old male with multiple medical problems as above Patient presents on 09/12 from [facility] for hypertension and tachycardia and thought it is secondary to stage IV decubitus ulcer and he was noncompliant and refusing treatment and as per document looks like the patient was in hospice but decided to change his mind and at that time was complaining from pain in his ulcer site Shortly after admission his condition got worse and he will was moved to the ICU for septic shock, due to infected sacral decubitus ulcer and sacral osteomyelitis ID service has been consulted patient is on broad-spectrum antibiotics along with fluids and vasopressors, PICC line has been placed in his left arm. Today patient was seen and examined and he still in the ICU he's awake and answer questions but looks confused as he ask questions 5-10 times and although we can answer him he does not look to understand very well and keep asking the same question. At the same time when he ask him questions he does not seem to understand and although sometimes he answer appropriately but most of the time he does not. He is disoriented to time, place and person. Because of that psychiatrist team were consulted to assess for capacity and the patient was found with no capacity to make medical decision. Also I consulted surgical team for assessment of his pressure ulcer and they recommended conservative management and no surgical intervention currently. Also patient has been followed closely by pulmonary/critical care team and ID team and he was on broad-spectrum antibiotic in the form of cefepime and daptomycin His wound culture growing multiple bacteriologic E. coli, Proteus, enterococcus. Urine culture is growing Kirstie and blood culture is positive for staph epidermidis and an intraoperative gram-negative bacilli Review of systems: N/a Patient medication: Cefepime, daptomycin, normal saline at 75 mm/h, noepinephrine which is on hold Objective - Vital Signs Vital signs: Vital Signs Temp 97.7 F 09/17/20 08:00 Pulse 101 H 09/17/20 09:00 Resp 18 09/17/20 09:00 BP 101/64 09/17/20 09:00 Pulse Ox 98 09/17/20 08:00 Intake & Output 09/16/20 09/17/20 09/17/20 18:59 06:59 18:59 Intake Total 6223.185 0383.914 75 Output Total 600 305 40 Balance 1204.983 713.914 35 Weight 139.9 kg Intake: IV 1100 1000 75 Cefepime 2 gm In Sodium 200 100 Chloride 0.9% 100 ml @ 25 mls/hr IVPB Q8HR [facility] Rx# :[id number] Sodium Chloride 0.9% 1, 900 900 75 000 ml @ 75 mls/hr IV . [id number] [facility] Rx#:[id number] Intake, IV Titration 484.983 18.914 Amount DAPTOmycin 850 mg In 50 Sodium Chloride 0.9% 50 ml @ 100 mls/hr IVPB Q24H [facility] Rx#:[id number] Norepinephrine 4 mg In 184.983 18.914 Sodium Chloride 0.9% 250 ml @ 0.05 MCG/KG/MIN 25. 908 mls/hr IV .[id number] [facility] Rx#:[id number] Sodium Chloride 0.9% 250 250 ml @ 999 mls/hr IV .Q16M [facility] Rx#:[id number] Oral 220 Output: Urine 600 305 40 Stool 0 Other: Voiding Method Indwelling Catheter Indwelling Catheter - Exam -GENERAL: The patient is alert and oriented x0, patient looks confused and keep asking the same question repeatedly and he does not understand questions and does not answer appropriately most of the time, he looks uncomfortable due to pain from his pressure ulcer at the same time he refuses the ulcer to be examined or treated. Obese HEENT: Pupils are round and equally reacting to light. EOMI. No scleral icterus. No conjunctival pallor. Normocephalic, atraumatic. No pharyngeal erythema. No thyromegaly. CARDIOVASCULAR: S1 and S2 present. No murmurs, rubs, or gallops. PULMONARY: Chest is clear to auscultation, no wheezing or crackles. ABDOMEN: Soft, nontender, nondistended, normoactive bowel sounds. No palpable organomegaly. -MUSCULOSKELETAL: No joint swelling or deformity. EXTREMITIES: No cyanosis, clubbing, or pedal edema. Patient refused to examine his back or sacral pressure ulcer NEUROLOGICAL: Gross neurological examination did not reveal any focal deficits. SKIN: No rashes. no petechiae. - Labs CBC & Chem 7: 09/17/20 04:26 09/17/20 04:26 Labs: Abnormal Lab Results - Last 24 Hours (Table) 09/16/20 09/16/20 09/16/20 Range/Units 03:26 11:33 17:03 WBC (3.8-10.6) k/uL RBC (4.30-5.90) m/uL Hgb (13.0-17.5) gm/dL Hct (39.0-53.0) % MCHC (31.0-37.0) g/dL RDW (11.5-15.5) % Neutrophils # (1.3-7.7) k/uL Sodium (137-145) mmol/L Chloride (98-107) mmol/L Carbon Dioxide (22-30) mmol/L BUN (9-20) mg/dL Glucose (74-99) mg/dL POC Glucose (mg/dL) 110 H 128 H (75-99) mg/dL Calcium (8.4-10.2) mg/dL C-Reactive Protein (<10.0) mg/L Procalcitonin 1.96 H (0.02-0.09) ng/mL 09/16/20 09/17/20 09/17/20 Range/Units 20:27 04:26 04:26 WBC 44.4 H (3.8-10.6) k/uL RBC 2.98 L (4.30-5.90) m/uL Hgb 8.5 L (13.0-17.5) gm/dL Hct 28.4 L (39.0-53.0) % MCHC 30.0 L (31.0-37.0) g/dL RDW 16.3 H (11.5-15.5) % Neutrophils # 40.4 H (1.3-7.7) k/uL Sodium 135 L (137-145) mmol/L Chloride 108 H (98-107) mmol/L Carbon Dioxide 20 L (22-30) mmol/L BUN 27 H (9-20) mg/dL Glucose 120 H (74-99) mg/dL POC Glucose (mg/dL) 121 H (75-99) mg/dL Calcium 6.9 L (8.4-10.2) mg/dL C-Reactive Protein 411.4 H (<10.0) mg/L Procalcitonin (0.02-0.09) ng/mL Microbiology - Last 24 Hours (Table) 09/13/20 17:00 Blood Culture - Preliminary Blood No Growth after 72 hours 09/12/20 15:18 Blood Culture - Preliminary Blood No Growth after 96 hours Assessment and Plan Assessment: 1. Gram-positive cocci bacteremia - Patient remains on broad-spectrum IV antibiotics; ID on board 2. Sepsis and septic shock; patient remains in ICU and he needed IV Levophed at certain points; pulmonary/critical care team R following closely 3. Infected stage IV decubitus ulcer; wound care consult in place; consult surgical team for possible surgical debridement . Patient refused examination of his ulcer 4. Altered mental status/metabolic versus toxic encephalopathy- multifactorial; continue with treatment of underlying condition 5. lack of capacity to make medical decision; patient lacks understanding when I saw him, and he was assessed by psychiatrist and he cannot make medical decision 6. Acute renal failure/ATN; improved 7. Noncompliance to medication and examination 8. COPD/asthma not in exacerbation; continue with home inhaler therapy 9. Hyperlipidemia; Lipitor 40 mg by mouth daily at bedtime 10. CAD/CHF; aspirin, statins 11. Morbid obesity/obstructive sleep apnea DVT prophylaxis; subcu heparin CODE STATUS; full code Prognosis: Extremely poor given his multiple complex medical problems, noncompliance. And multisystem involvement
== END 2020-09-17 19:06 | disposition hospice, inpatient (51) | DRG 871 ==
LOC: EC 14:38 → 3SCARD 17:45 → 2SICU 23:02
PROVIDERS: ADMIT Hospitalist; ATTEND Hospitalist
PROC: 3E033XZ Introduction of Vasopressor into Peripheral Vein, Percutaneous Approach (ICD-10-PCS; 2020-09-12)
PROC: 02HV33Z Insertion of Infusion Device into Superior Vena Cava, Percutaneous Approach (ICD-10-PCS; principal; 2020-09-14 09:20)
DX: A41.81 Sepsis due to Enterococcus (principal); R65.21 Severe sepsis with septic shock; L89.154 Pressure ulcer of sacral region, stage 4; G93.41 Metabolic encephalopathy; N17.0 Acute kidney failure with tubular necrosis; E44.1 Mild protein-calorie malnutrition; E87.2 Acidosis; I13.0 Hypertensive heart and chronic kidney disease with heart failure and stage 1 through stage 4 chronic kidney disease, or unspecified chronic kidney disease; G82.20 Paraplegia, unspecified; T83.511A Infection and inflammatory reaction due to indwelling urethral catheter, initial encounter; N13.8 Other obstructive and reflux uropathy; E87.1 Hypo-osmolality and hyponatremia; E27.40 Unspecified adrenocortical insufficiency; I50.32 Chronic diastolic (congestive) heart failure; Z68.42 Body mass index [BMI] 45.0-49.9, adult; N39.0 Urinary tract infection, site not specified; M46.28 Osteomyelitis of vertebra, sacral and sacrococcygeal region; D63.1 Anemia in chronic kidney disease; E11.22 Type 2 diabetes mellitus with diabetic chronic kidney disease; E11.622 Type 2 diabetes mellitus with other skin ulcer; E11.69 Type 2 diabetes mellitus with other specified complication; R31.9 Hematuria, unspecified; E66.01 Morbid (severe) obesity due to excess calories; N18.30 Chronic kidney disease, stage 3 unspecified; Z93.3 Colostomy status; J44.9 Chronic obstructive pulmonary disease, unspecified; Z79.4 Long term (current) use of insulin; Z20.822 Contact with and (suspected) exposure to COVID-19; G47.33 Obstructive sleep apnea (adult) (pediatric); F41.9 Anxiety disorder, unspecified; I87.2 Venous insufficiency (chronic) (peripheral); N40.1 Benign prostatic hyperplasia with lower urinary tract symptoms; I25.10 Atherosclerotic heart disease of native coronary artery without angina pectoris; R74.01 Elevation of levels of liver transaminase levels; I89.0 Lymphedema, not elsewhere classified; R09.02 Hypoxemia; B96.20 Unspecified Escherichia coli [E. coli] as the cause of diseases classified elsewhere; E78.5 Hyperlipidemia, unspecified; I25.2 Old myocardial infarction; Z71.3 Dietary counseling and surveillance; Z86.19 Personal history of other infectious and parasitic diseases; Z79.82 Long term (current) use of aspirin; Z79.899 Other long term (current) drug therapy; Z91.14 Patient's other noncompliance with medication regimen; Z74.01 Bed confinement status; Z95.5 Presence of coronary angioplasty implant and graft; Z98.890 Other specified postprocedural states; Z87.891 Personal history of nicotine dependence; Z91.19 Patient's noncompliance with other medical treatment and regimen; Z91.048 Other nonmedicinal substance allergy status; Z80.9 Family history of malignant neoplasm, unspecified
CPT/HCPCS: 36415; 36573; 80048; 80053; 81001; 82533; 83605; 84145; 85025; 85610; 85730; 86140; 87040; 87070; 87077; 87086; 87186; 87205; 87635; 93005; 96361; 96365; 96366; 96368; 96375; 99291

== ENCOUNTER 2020-09-17 18:57 | Inpatient (IN) | payer MEDICAID, MEDICARE, OTHER ==
[2020-09-17] MEDS ORDERED: ONDANSETRON 4 MG/2 ML VIAL IVP PRN (19:16)
[2020-09-17] MEDS ORDERED: ACETAMINOPHEN TAB 325 MG TAB PO PRN (19:16)
[2020-09-17] MEDS: MORPHINE SULFATE 4 MG/ML SYRINGE IV PRN (19:40)
[2020-09-17] MEDS: LORazepam 2 MG/ML INJ IV PRN (19:46)
[2020-09-17] MEDS: MORPHINE SULFATE 2 MG/ML SYRINGE IV PRN (21:26)
[2020-09-18] MEDS: MORPHINE SULFATE 2 MG/ML SYRINGE IV PRN (00:34)
[2020-09-18] MEDS: MORPHINE SULFATE 4 MG/ML SYRINGE IV PRN ×4 (05:55→22:24)
[2020-09-18] MEDS: LORazepam 2 MG/ML INJ IV PRN ×2 (06:39→15:28)
[2020-09-18 16:20] LABS: Glucose,Whole Blood 98 mg/dL (75-99)
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
[2020-09-19 10:18] VITALS: BP 113/44; PULSE 51; RESP 19; TEMP 97.9
--- NOTE | 2020-09-19 10:28 | P.PN ---
Subjective Patient could not provide full information consult was obtained from the records, staff. This is a pleasant 62 years old male with multiple medical problems as below. Patient presents on 09/12 from [facility] for hypertension and tachycardia and thought it is secondary to stage IV decubitus ulcer and he was noncompliant and refusing treatment prior to that and as per document looks like the patient was in hospice but he changes his mind and decided to be treated and sent to the hospital and at that time was complaining from pain in his ulcer site Shortly after admission his condition got worse and he will was moved to the ICU for septic shock, due to infected sacral decubitus ulcer and sacral osteomyelitis ID service has been consulted patient is on broad-spectrum antibiotics along with fluids and vasopressors, PICC line has been placed in his left arm. When I saw the patient on he was awake, ask some questions but unable to underst and. He could not answer "or questions appropriately despite several attempts by me and the bedside nurse. Psychiatric consult was obtained and patient was found to have lacking capacity to make medical decision After I rounded on the patient looks like the bedside nurse and the social media senior associate/case finisher talk to Carlos his brother and his power of assistant prosecuting attorney and patient has already been made hospice care, like when I came this morning. Patient was lying in bed, attended, does not respond to verbal or tactile stimuli. Bedside nurse and confirmed to me he is hospice now I called his brother carlos his power of assistant prosecuting attorney as he confirmed to me and he confirmed to me that he wants patient to be on hospice based on previous patient wishes. In the meantime patient looks comfortable and not in distress He is DO NOT RESUSCITATE and his prognosis is extremely poor And expected to have less than 6 months to live. Actually now with hospice and comfort measures, patient may live only hours to days 09/19/2020 Patient to continue with hospice/Comfort Care Patient looks comfortable, not in distress. He is obtunded continue with Ativan and Tylenol as needed. Continue with morphine and Zofran as needed as well Objective - Vital Signs Vital signs: Vital Signs Temp 97.9 F 09/19/20 08:00 Pulse 51 L 09/19/20 08:00 Resp 19 09/19/20 08:00 BP 113/44 09/19/20 08:00 Pulse Ox 97 09/19/20 08:09 Intake & Output 09/18/20 09/19/20 09/19/20 18:59 06:59 18:59 Intake Total 0 Output Total 125 775 Balance -125 -775 Intake: Oral 0 Output: Urine 125 775 Other: Voiding Method Indwelling Catheter Indwelling Catheter - Exam -GENERAL: The patient is obtunded and cannot provide information. Obese HEENT: Pupils are round and equally reacting to light. EOMI. No scleral icterus. No conjunctival pallor. Normocephalic, atraumatic. No pharyngeal erythema. No thyromegaly. CARDIOVASCULAR: S1 and S2 present. No murmurs, rubs, or gallops. PULMONARY: Chest is clear to auscultation, no wheezing or crackles. ABDOMEN: Soft, nontender, nondistended, normoactive bowel sounds. No palpable organomegaly. -MUSCULOSKELETAL: No joint swelling or deformity. Unstageable sacral pressure ulcer EXTREMITIES: No cyanosis, clubbing, or pedal edema. NEUROLOGICAL: Gross neurological examination did not reveal any focal deficits. SKIN: No rashes. no petechiae. Assessment and Plan Assessment: 1. End of life care, comfort care 2. Gram-positive cocci bacteremia with Sepsis and septic shock 3. Infected stage IV decubitus ulcer 4. Altered mental status/metabolic versus toxic encephalopathy- multifactorial 5. lack of capacity to make medical decision 6. Acute renal failure/ATN 7. Noncompliance to medication and examination 8. History of COPD/asthma 9. Hyperlipidemia 10. CAD/CHF 11. Morbid obesity/obstructive sleep apnea Plan: Continue with comfort care measures, continue with morphine and benzodiazepine, see instructions for more orders Patient is no code Case was discussed it with his brother Mr. Garcia who is power of assistant prosecuting attorney
--- NOTE | 2020-09-19 11:32 | P.DS ---
Providers Date of admission: 09/17/20 19:07 Attending physician: Erasmo Quispe Primary care physician: Stated None Hospital Course: Diagnoses 1. End of life care, comfort care 2. Gram-positive cocci bacteremia with Sepsis and septic shock 3. Infected stage IV decubitus ulcer 4. Altered mental status/metabolic versus toxic encephalopathy- multifactorial 5. lack of capacity to make medical decision 6. Acute renal failure/ATN 7. Noncompliance to medication and examination 8. History of COPD/asthma 9. Hyperlipidemia 10. CAD/CHF 11. Morbid obesity/obstructive sleep apnea Operative course This is a pleasant 62 years old male with multiple medical problems as below. 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 When I saw the patient on he was awake, ask some questions but unable to understand. He could not answer "or questions appropriately despite several attempts by me and the bedside nurse. 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 Patient was lying in bed, attended, does not respond to verbal or tactile stimuli. Bedside nurse and confirmed to me he is hospice now I called his brother carlos his power of assistant county attorney as he confirmed to me and he confirmed to me that he wants patient to be on hospice based on previous patient wishes. In the meantime patient looks comfortable and not in distress He is DO NOT RESUSCITATE and his prognosis is extremely poor And expected to have less than 6 months to live. Actually now with hospice and comfort measures, patient may live only days pt is going to [facility] to continue with his hospice care their physical exam -GENERAL: The patient is obtunded and cannot provide information. Obese HEENT: Pupils are round and equally reacting to light. EOMI. No scleral icterus. No conjunctival pallor. Normocephalic, atraumatic. No pharyngeal erythema. No thyromegaly. CARDIOVASCULAR: S1 and S2 present. No murmurs, rubs, or gallops. PULMONARY: Chest is clear to auscultation, no wheezing or crackles. ABDOMEN: Soft, nontender, nondistended, normoactive bowel sounds. No palpable organomegaly. -MUSCULOSKELETAL: No joint swelling or deformity. Unstageable sacral pressure ulcer EXTREMITIES: No cyanosis, clubbing, or pedal edema. NEUROLOGICAL: Gross neurological examination did not reveal any focal deficits. SKIN: No rashes. no petechiae. Plan - Discharge Summary New Discharge Prescriptions: No Action Spironolactone [Aldactone] 25 mg PO DAILY@0900 carvediloL [Coreg] 3.125 mg PO BID@0900,1700 Aspirin [[place] Aspirin EC] 81 mg PO DAILY@0900 Pantoprazole [Protonix] 40 mg PO DAILY@0900 Melatonin 5 mg PO HS@2100 Bumetanide [BUMEX] 1 mg PO DAILY@0900 polyethylene glycoL 3350 [Miralax] 17 gm PO Q12H PRN PRN Reason: Constipation Prostat Sugar Free 30 ml PO BID@0900,1700 Potassium Chloride ER [K-Dur 20] 20 meq PO BID@0900,1700 Magnesium Oxide [Mag-Ox] 400 mg PO BID@0900,1700 Ferrous Sulfate [Iron (65 MG Elemental)] 325 mg PO BID@0900,1700 Atorvastatin [Lipitor] 40 mg PO HS@2100 Ascorbic Acid [Vitamin C] 500 mg PO DAILY@0900 Acetaminophen Tab [Tylenol] 650 mg PO Q6HR PRN tab PRN Reason: Fever And/ Or Pain Gabapentin 300 mg PO TID@0900,1300,2100 #12 cap HYDROmorphone [Dilaudid] 4 mg PO Q4H PRN PRN Reason: Pain Insulin Lispro [humaLOG Kwikpen] See Protocol SQ ACHS Methadone [Dolophine] 5 mg PO BID@0900,2100 Discharge Medication List Aspirin [[place] Aspirin EC] 81 mg PO DAILY@0900 09/01/19 [History] Spironolactone [Aldactone] 25 mg PO DAILY@0900 09/01/19 [History] carvediloL [Coreg] 3.125 mg PO BID@0900,1700 09/01/19 [History] Bumetanide [BUMEX] 1 mg PO DAILY@0900 05/08/20 [History] Melatonin 5 mg PO HS@209905/08/20 [History] Pantoprazole [Protonix] 40 mg PO DAILY@89905/08/20 [History] Ascorbic Acid [Vitamin C] 500 mg PO DAILY@0909/05/20 [History] Atorvastatin [Lipitor] 40 mg PO HS@209909/05/20 [History] Ferrous Sulfate [Iron (65 MG Elemental)] 325 mg PO BID@0900,17009/05/20 [History] Magnesium Oxide [Mag-Ox] 400 mg PO BID@0900,17009/05/20 [History] Potassium Chloride ER [K-Dur 20] 20 meq PO BID@0900,1700 09/05/20 [History] Prostat Sugar Free 30 ml PO BID@0900,1700 09/05/20 [History] polyethylene glycoL 3350 [Miralax] 17 gm PO Q12H PRN 09/05/20 [History] Acetaminophen Tab [Tylenol] 650 mg PO Q6HR PRN tab 09/07/20 [Rx] Gabapentin 300 mg PO TID@0900,1300,2100 #12 cap 09/07/20 [Rx] HYDROmorphone [Dilaudid] 4 mg PO Q4H PRN 09/12/20 [History] Insulin Lispro [humaLOG Kwikpen] See Protocol SQ ACHS 09/12/20 [History] Methadone [Dolophine] 5 mg PO BID@0900,2100 09/12/20 [History]
[2020-09-19] MEDS: MORPHINE SULFATE 2 MG/ML SYRINGE IV PRN ×2 (13:11→16:11)
[2020-09-19 13:27] VITALS: BMI 43.4
== END 2020-09-19 16:26 | disposition hospice, inpatient (51) | DRG 951 ==
LOC: 2SICU 19:07 → 4SSUR 09-18 22:15
PROVIDERS: ADMIT Hospitalist; ATTEND Hospitalist
DX: Z51.5 Encounter for palliative care (principal); A41.89 Other specified sepsis; L89.154 Pressure ulcer of sacral region, stage 4; R65.21 Severe sepsis with septic shock; N17.0 Acute kidney failure with tubular necrosis; G92 Toxic encephalopathy; M86.9 Osteomyelitis, unspecified; I13.0 Hypertensive heart and chronic kidney disease with heart failure and stage 1 through stage 4 chronic kidney disease, or unspecified chronic kidney disease; Z66 Do not resuscitate; B96.89 Other specified bacterial agents as the cause of diseases classified elsewhere; I50.9 Heart failure, unspecified; J44.9 Chronic obstructive pulmonary disease, unspecified; E78.5 Hyperlipidemia, unspecified; I25.10 Atherosclerotic heart disease of native coronary artery without angina pectoris; E66.01 Morbid (severe) obesity due to excess calories; G47.33 Obstructive sleep apnea (adult) (pediatric); E11.22 Type 2 diabetes mellitus with diabetic chronic kidney disease; N18.30 Chronic kidney disease, stage 3 unspecified; Z91.19 Patient's noncompliance with other medical treatment and regimen; I25.2 Old myocardial infarction; Z91.14 Patient's other noncompliance with medication regimen; Z95.5 Presence of coronary angioplasty implant and graft; Z79.82 Long term (current) use of aspirin; Z79.899 Other long term (current) drug therapy
CPT/HCPCS: 94760